=== PATIENT | female | born 1965 | race Caucasian/White ===

== ENCOUNTER 2016-11-16 12:03 | Inpatient (IN) | payer OTHER ==
[~2016-11-16] VITALS: Ht 165.1 cm; Wt 76.2 kg
[~2016-11-16 12:03] MED LIST: ADVIN50/60 INH; ATR25 PO; CARV3.122 PO; IPRA1AER2 INH; LAMO100T PO; LORA-741 PO; LOSA1TAB PO; LURA80TA PO; MONT1TAB3 PO; NSNN50 NAE; OXYC-643 PO; PANT40TA PO; TIOTCAP INH; TRAM-10 PO; TRAZ50TA35 PO
[2016-11-16] MEDS ORDERED: ONDANSETRON INJ 2 MG/ML 2 ML VIAL IV PRN (13:00)
[2016-11-16] MEDS ORDERED: POTASSIUM CHLORIDE 20 MEQ TABCR PO STA (13:08)
[2016-11-16 13:19] VITALS: BP 126/67; PULSE 93; TEMP 37.2; O2SAT 98
[2016-11-16 13:45] VITALS: BP 126/67; PULSE 93; TEMP 37.2; O2SAT 98; Ht 165.1 cm; Wt 76.2 kg
[2016-11-16] MEDS ORDERED: LAMO1TAB21 PO (14:02)
[2016-11-16] MEDS ORDERED: SALI0.6510 NAE (14:04)
[2016-11-16] MEDS ORDERED: TRIH5TAB2 PO (14:09)
[2016-11-16] MEDS: POTASSIUM CHLR 10 MEQ / WTR 10 MEQ in PREMIXED WATER 100 ML IV SCH ×4 (14:21→18:38)
[2016-11-16] MEDS ORDERED: ALBINS INH (14:23)
[2016-11-16] MEDS ORDERED: ASPCH81X PO (14:26)
[2016-11-16] MEDS ORDERED: ATRINS NEB (14:26)
[2016-11-16] MEDS ORDERED: [UNRECOGNIZED DRUG - SUPPLY] INH (14:27)
[2016-11-16 14:29] LABS: BASO % 0.2 %; BASO ABS # 0.02 K/uL (0-0.2); COMPLETE YES; EOS % 0.7 %; HEMATOCRIT 34.4 % (37-47); IG% 0.2 %; LYMPH % 17.1 %; LYMPH ABS # 1.61 K/uL (1.2-3.4); MEAN CELL VOLUME 100.9 fL (80-100); MEAN CORPUSCULAR HGB CONC 33.7 g/dl (32-36); MEAN PLATELET VOLUME 10.3 fL (7.4-10.4); MONO % 9.1 %; NEUT % 72.7 %; PLATELET COUNT 146 K/uL (130-400); RED BLOOD COUNT 3.41 M/uL (4.2-5.4); WHITE BLOOD COUNT 9.41 K/uL (4.8-10.8)
[2016-11-16] MEDS ORDERED: MULTIVITAMIN TAB PO ONE (14:32)
[2016-11-16] MEDS ORDERED: NICOTINE 14 MG/24 HR TDSY TD ONE (14:32)
[2016-11-16] MEDS ORDERED: THIAMINE HCL 100 MG TAB PO ONE (14:32)
[2016-11-16 14:38] LABS: INR 1.5 (0.9-1.1); PARTIAL THROMBOPLASTIN RATIO 1.4; PROTHROMBIN TIME (PATIENT) 16.2 SECONDS (9.0-12.0)
[2016-11-16] MEDS ORDERED: IPRATROPIUM BROMIDE/ALBUTEROL respimat INH INH PRN (14:45)
[2016-11-16] MEDS ORDERED: ALBUTEROL 0.083% NEBU SOLN 3 ML VIAL INH PRN (14:45)
[2016-11-16] MEDS ORDERED: hydrOXYzine HCL 25 MG TAB PO PRN (14:45)
[2016-11-16] MEDS ORDERED: IPRATROPIUM BROMIDE NEB SOLN 0.02% 2.5 ML VIAL INH PRN (14:45)
[2016-11-16] MEDS ORDERED: LORAZEPAM 1 MG TAB PO PRN (14:45)
[2016-11-16] MEDS ORDERED: [UNRECOGNIZED DRUG - SUPPLY] INH SCH (14:45)
[2016-11-16] MEDS ORDERED: TRAMADOL HCL 50 MG TAB PO PRN (14:45)
[2016-11-16] MEDS ORDERED: SODIUM CHLORIDE 0.9% 1000ML 1,000 ML IV SCH (14:45)
[2016-11-16] MEDS ORDERED: LURA40TA PO (14:50)
[2016-11-16 15:05] LABS: BUN/CREATININE RATIO 3.3 (10-20); CALCIUM 8.4 mg/dl (8.5-10.1); CREATININE 0.46 mg/dl (0.60-1.20); MAGNESIUM 1.6 mg/dl (1.8-2.4); POTASSIUM 2.4 mmol/L (3.5-5.1)
[2016-11-16] MEDS ORDERED: SODIUM CHLORIDE 0.65% NA SOLN 45 ML (OCEAN) ONE (15:29)
[2016-11-16] MEDS ORDERED: NURSING VERBAL MED ORDER ONE (15:30)
[2016-11-16 16:00] VITALS: O2SAT 98
--- NOTE | 2016-11-16 16:10 | History and Physical ---
History & Physical Date & Time of Service: Nov 16, 2016 at 15:01 Chief Complaint: Hypokalemia, Increased Bilirubin Primary Care Physician: Rangel Crane D.O. History of Present Illness Source: patient This is a 51yo F with PMH of chronic diastolic HF, asthma, bipolar disorder, HTN , tobacco use d/o and h/o alcohol abuse who presents directly from her PCP with hypokalemia (2.9) and an elevated bilirubin (4.7). Patient states that she does not have any acute symptoms but has been experiencing fatigue over the past 6 months as well as some nausea. Was seen by Aura BRAVO in September for nausea/ vomiting and was started on a PPI. Was also told to start a gluten free diet due to elevated celiac antibodies. Since then, the vomiting has subsided but patient has maintained a decreased appetite (1-3 small meals/day) as well as diarrhea x 2 days. Of note, patient has a history of alcohol abuse (30 cans of beer/week in her 30s, ~18oz of liquor/day 3 years ago), but states that she significantly decreased intake a few years ago to 2-4 beer cans/week. Reports that she has not had any alcohol in the last month since beginning her gluten free diet. Denies any fever/chills, cognitive deficits, CP, SOB, abdominal pain , melena, hematochezia, jaundice, tremors. Past Medical/Surgical History Medical Problems: (1) Anxiety Status: Chronic (2) Asthma Status: Chronic (3) Bipolar 1 disorder Status: Chronic (4) CHF (congestive heart failure) Status: Chronic (5) H/O alcohol abuse Status: Chronic (6) HTN, goal below 140/90 Status: Chronic (7) Hx of migraines Status: Chronic (8) Sleep apnea Status: Chronic (9) Tobacco use disorder Status: Chronic Surgical Problems: (1) S/P cholecystectomy Status: Resolved (2) S/P knee replacement Status: Resolved (3) S/P tubal ligation Status: Resolved Family History Diabetes mellitus SISTER FH: brain cancer FATHER Hodgkin's lymphoma MOTHER Social History Smoking Status: Current Every Day Smoker (1/2 PPD x 30 years ) Smokeless Tobacco Use: No Alcohol Use: none (see HPI for history of etoh abuse) Drug Use: none Marital Status: Housing status: lives with family Immunizations History of Influenza Vaccine: No History of Tetanus Vaccine?: Unknown History of Pneumococcal: No History of Hepatitis B Vaccine: Unknown Hepatitis Immunization Date: Feb 01, 2005 Multi-Drug Resistant Organisms History of MDRO: No Allergies Coded Allergies: [place] (Verified Allergy, Severe, HIVES, 05/11/15) [place] Tar (Unverified Allergy, Mild, 05/11/15) BEE STING (Verified Allergy, Unknown, HIVES AND SWELLING, 05/11/15) POLLEN (Verified Allergy, Unknown, UNKNOWN, 05/11/15) Home Medications Scheduled Aspirin (Aspirin Chewable), 81 MG PO DAILY Fluticasone Prop/Salmeterol (Advair Diskus 500/50 60 Dose), 1 PUFF INH BID Lamotrigine (Lamictal), 200 MG PO HS Lamotrigine (Lamotrigine), 1 TAB PO DAILY Losartan Potassium (Cozaar), 25 MG PO DAILY Lurasidone Hcl (Latuda), 0.5 TAB PO BID Montelukast Sodium (Singulair), 10 MG PO HS Pantoprazole Sodium (Protonix), 40 MG PO DAILY Saline ([place] Nasal [place]), 1 SPRAY [place] DIRECTED Trazodone Hcl (Trazodone), 150 MG PO HS Trihexyphenidyl Hcl (Trihexyphenidyl Hcl), 0.5 TAB PO DAILY [nebulizer device], 1 UNIT INH DIRECTED Scheduled PRN Albuterol Sulf (Albuterol Sulfate), 1 DOSE INH Q6 PRN for Wheezing Hydroxyzine HCl (Hydroxyzine HCl), 25 MG PO Q4 PRN for Anxiety and/or Sedation Ipratropium [place] (Ipratropium [place]), 1 VIAL NEB Q6H PRN for Wheezing Ipratropium-Albuterol (Combivent Respimat), 1 PUFF INH QID PRN for PRN Tramadol (Ultram), 50-100 MG PO Q6H PRN for Pain Review of Systems Ten systems reviewed and negative except as noted in HPI. Physical Exam Vital Signs Date Time Temp Pulse Resp B/P (MAP) Pulse Ox O2 Delivery O2 Flow Rate FiO2 11/16/16 13:45 37.2 93 18 126/67 98 Room Air 11/16/16 13:19 37.2 93 18 126/67 (86) 98 Room Air General Appearance: no apparent distress Head: normocephalic, atraumatic Eyes: + pertinent finding (scleral icterus) ENT: normal ENT inspection Neck: supple, no adenopathy, no JVD Respiratory/Chest: chest non-tender, lungs clear, normal breath sounds, no respiratory distress, no accessory muscle use Cardiovascular: regular rate, rhythm Abdomen/GI: normal bowel sounds, non tender, soft, + hepatomegaly Back: normal inspection, no CVA tenderness Extremities/Musculoskelatal: normal inspection, no calf tenderness, no pedal edema Neurologic/Psych: no motor/sensory deficits, alert, normal mood/affect, oriented x 3 Skin: warm/dry, no rash, + pertinent finding (Spider angiomatas noted on arms and abdomen) Lymphatic: no adenopathy Diagnostics Laboratory Results Results Past 24 Hours Test 11/16/16 13:55 11/16/16 14:32 Range/Units White Blood Count 9.41 4.8-10.8 K/uL Red Blood Count 3.41 4.2-5.4 M/uL Hemoglobin 11.6 12.0-16.0 g/dL Hematocrit 34.4 37-47 % Mean Corpuscular Volume 100.9 80-100 fL Mean Corpuscular Hemoglobin 34.0 25-34 pg Mean Corpuscular Hemoglobin Concent 33.7 32-36 g/dl Platelet Count 146 130-400 K/uL Mean Platelet Volume 10.3 7.4-10.4 fL Neutrophils (%) (Auto) 72.7 % Lymphocytes (%) (Auto) 17.1 % Monocytes (%) (Auto) 9.1 % Eosinophils (%) (Auto) 0.7 % Basophils (%) (Auto) 0.2 % Neutrophils # (Auto) 6.83 1.4-6.5 K/uL Lymphocytes # (Auto) 1.61 1.2-3.4 K/uL Monocytes # (Auto) 0.86 0.11-0.59 K/uL Eosinophils # (Auto) 0.07 0-0.5 K/uL Basophils # (Auto) 0.02 0-0.2 K/uL RDW Standard Deviation 60.9 36.4-46.3 fL RDW Coefficient of Variation 16.5 11.5-14.5 % Immature Granulocyte % (Auto) 0.2 % Immature Granulocyte # (Auto) 0.02 0.00-0.02 K/uL Prothrombin Time 16.2 9.0-12.0 SECONDS Prothromb Time International Ratio 1.5 0.9-1.1 Activated Partial Thromboplast Time 35.5 21.0-31.0 SECONDS Partial Thromboplastin Ratio 1.4 CXR normal Impression Assessment and Plan This is a 51yo F with PMH of chronic diastolic HF, asthma, bipolar disorder, HTN , tobacco use d/o and h/o alcohol abuse who presents with hypokalemia (2.9) and an elevated bilirubin (4.7). Hypokalemia: -Low K of 2.9 at PCP appt yesterday. Decreased to 2.4 once admitted. Repleting K both by IV and PO. -cause is likely due to decreased intake of K by diet (has had a decreased appetite for a month) and from GI losses by diarrhea over the past few days -could also be in part to chronic alcoholism, although pt states that she decreased etoh intake to 2-4 beers a few years ago and has not consumed etoh at all in past month -low Mg level as well 1.6, so could be a secondary hypokalemia. Will continue repleting both K and Mg. -will continue to monitor BMP Hypomagnesemia: -not on diuretics, antibiotics -does have elevated celiac antibody (IGA of 456) per out-patient GI note, so could be due to malabsorption -likely 2/2 poor nutrition, h/o chronic alcohol abuse and GI losses from diarrhea Transaminitis: -AST 265 today. Per out-patient GI note, hepatic panel was wnl in 2014, but in 2016 AST levels were elevated to 258. Have remained elevated since. -ALT wnl at 58 -patient states she decreased etoh dramatically a few years ago but that she has not consumed any etoh in last month -Hepatitis panel in 08/15 was negative -CT abd/pelvis from 08/15 shows geographic fatty infiltration of the liver -ceruloplasmin, serum protein, anti-mitochondrial ab, anti-smooth muscle ab, Alpha-1 antitrypsin all negative. Hfe DNA test pending. -consulted GI for further recs Elevated bilirubin: -5.6 total bili with 3.7 conjugated bili. -scleral icterus on exam but not jaundiced -could be due to alcoholic hepatitis 2/2 longstanding etoh use vs. cirrhosis 2/ 2 fatty liver disease vs. ?? -not likely an autoimmune cause of hepatitis because labwork wnl -consulted GI for further recs Diastolic HF: stable -pt denies any CP, SOB -last Echo 09/11 showed LV EF of 50-54%. -continue BP medications HTN: stable -normotensive -continue losartan Bipolar disorder: stable -continue Latuda 20mg BID Asthma: controlled -continue home nebs, inhalers and PO meds DVT Ppx: Lovenox Code status: Full Dispo: Med/surg PCP: Dr. Crane Agree with above H and P. Briefly 51f was directly admitted as her outpatient labs showed hypokalemia and elevated bilirubin. Patient has significant hx of alcoholism but denies taking alcohol since one month.having nausea and poor oral intake. had workup for nausea and elebvated ASt. Celiac antibodies were elevated and was stared on gluten free diet.Denies abdominal pain. No diarrhea. No fevers. No sob/chest pain. P/E ge not in distress Cvs s1 and s2 heard no murmurs Rs cta b/l no added sounds Abd benign Welfare Eligibility Interviewer non focal Ext no edema a/p hypokalemia and hypomagnesemia from poor oral intake alcoholism? will replace and follow labs elevated bilirubin elevated Ast hx of alcoholism recent ct scan fatty liver out patient Gi workup so far unremarkable Will consult GI for further recommendations f/u labs Level of Care Med/Surg Advanced Directives Existing Living Will: No Existing Power of Player Development Executive: No Resuscitation Status FULL RESUSCITATION VTE Prophylaxis VTE Risk Assessment Done? Y/N: Yes Risk Level: Moderate Given or contraindicated: Enoxaparin (Lovenox)SQ Social Service Consult None Apply
[2016-11-16 16:15] VITALS: BP 153/88; PULSE 99; TEMP 37.6; O2SAT 96
[2016-11-16] MEDS: NSS + 20MEQ KCL 1000ML 1,000 ML IV SCH (16:34)
[2016-11-16] MEDS: MAGNESIUM SULFATE 1GM / D5W 1 GM in PREMIXED IN D5W 100 ML IV SCH ×2 (16:34→19:04)
[2016-11-16] MEDS: PANTOprazole SOD 40 MG TAB PO SCH (16:35)
[2016-11-16] MEDS ORDERED: POTASSIUM CHLORIDE 10 MEQ TABCR PO ONE (17:00)
[2016-11-16 19:46] LABS: BUN/CREATININE RATIO 1.9 (10-20); CALCIUM 8.2 mg/dl (8.5-10.1); CREATININE 0.65 mg/dl (0.60-1.20); MAGNESIUM 1.9 mg/dl (1.8-2.4); POTASSIUM 3.1 mmol/L (3.5-5.1)
[2016-11-16] MEDS ORDERED: POTASSIUM CHLORIDE 10 MEQ TABCR PO STA (20:19)
[2016-11-16] MEDS: ENOXAPARIN 40 MG/0.4 ML SYR SQ SCH (20:50)
[2016-11-16] MEDS: FLUTICASONE/SALMETEROL (ADVAIR) 500/50 INH 14 PUFF INH SCH (20:52)
[2016-11-16] MEDS: TRAZODONE HCL 50 MG TAB PO SCH (20:54)
[2016-11-16] MEDS: LURASIDONE HCL 40 MG TAB PO SCH (20:55)
[2016-11-16] MEDS: MAGNESIUM OXIDE 400 MG TAB PO SCH (20:56)
[2016-11-16] MEDS: MONTELUKAST SOD 10 MG TAB PO SCH (20:56)
[2016-11-16] MEDS ORDERED: SODIUM CHLORIDE 0.65% NA SOLN 45 ML (OCEAN) NAE PRN (21:00)
[2016-11-17 00:02] VITALS: BP 119/71; PULSE 98; TEMP 37; O2SAT 96
[2016-11-17] MEDS: NSS + 20MEQ KCL 1000ML 1,000 ML IV SCH ×2 (04:05→14:15)
--- NOTE | 2016-11-17 06:40 | Clinical Documentation Query ---
CLINICAL DOCUMENTATION QUERY 51-y/o female with hx of alcoholism who presents with hypokalemia and elevated bilirubin from PCP. In your clinical opinion is this patient being managed for: ( ) Alcohol dependence causing electrolyte disturbances and elevated liver enzymes. ( ) Other explanation of clinical findings (Please Explain) ( ) Unable to determine (Please Define) ( ) Need to Discuss - please wait for my documentation ( ) Not Agree The medical record reflects the following clinical findings, treatment, and risk factors. Clinical Indicators: Ethyl Alcohol 6.0, Potassium 2.4, Magnesium 1.6, AST 265, Total Bilirubin 5.6. Nursing notes jaundiced skin and sclera. Treatment: Telemetry, IV Potassium, IV Magnesium, Thiamine, Risk Factors: Age, hx of alcoholism. Please clarify and document your clinical opinion in the progress notes and discharge summary. Terms such as "probable", "suspected", "likely", "questionable", "possible", or "still to be ruled out" are acceptable. IF IN AGREEMENT, YOU MUST DOCUMENT ABOVE DIAGNOSTIC STATEMENT IN DAILY PROGRESS NOTES AND DISCHARGE SUMMARY. This document is not part of the patient's record. Thank You, Tunde Cortez, RN [phone]
[2016-11-17 07:52] VITALS: BP 113/64; PULSE 91; TEMP 36.9; O2SAT 97
[2016-11-17 08:00] VITALS: O2SAT 97
[2016-11-17 08:13] LABS: BUN/CREATININE RATIO 1.8 (10-20); CALCIUM 8.3 mg/dl (8.5-10.1); CREATININE 0.76 mg/dl (0.60-1.20); POTASSIUM 3.7 mmol/L (3.5-5.1)
[2016-11-17] MEDS: TRIHEXYPHENIDYL HCL 5 MG TAB PO SCH (08:56)
[2016-11-17] MEDS: LURASIDONE HCL 40 MG TAB PO SCH ×2 (08:56→21:18)
[2016-11-17] MEDS: MULTIVITAMIN TAB PO SCH (08:57)
[2016-11-17] MEDS: NICOTINE 14 MG/24 HR TDSY TD SCH (08:57)
[2016-11-17] MEDS: PANTOprazole SOD 40 MG TAB PO SCH (08:58)
[2016-11-17] MEDS: LOSARTAN POTASSIUM 25 MG TAB PO SCH (08:58)
[2016-11-17] MEDS: THIAMINE HCL 100 MG TAB PO SCH (08:58)
[2016-11-17] MEDS: FLUTICASONE/SALMETEROL (ADVAIR) 500/50 INH 14 PUFF INH SCH ×2 (08:59→21:18)
[2016-11-17] MEDS: MAGNESIUM OXIDE 400 MG TAB PO SCH ×2 (09:22→21:19)
[2016-11-17] MEDS: ASPIRIN 81 MG ECTAB PO SCH (09:22)
[2016-11-17 09:38] LABS: ALB/GLOB RATIO 0.4 (0.9-2)
--- NOTE | 2016-11-17 11:38 | DIAGNOSTIC IMAGING REPORT ---
BILIARY ULTRASOUND CLINICAL HISTORY: elevated LFTs history of fatty liver, r/o obstruction COMPARISON STUDY: No previous studies for comparison. FINDINGS: The liver is enlarged and of increased echogenicity. The findings likely reflect hepatic steatosis or hepatitis. The gallbladder surgically absent. The common bile duct measures 7 mm. There is minimal perihepatic fluid present. There is no hydronephrosis. The pancreas was poorly visualized but no definite pancreatic masses were evident. The spleen was enlarged measuring 16 cm There is reversed flow within the portal veins. IMPRESSION: 1. Mildly enlarged liver demonstrating increased echogenicity. The findings are consistent with hepatic steatosis or hepatitis 2. Evidence of portal hypertension with hepatofugal portal venous flow, and splenomegaly 3. Minimal perihepatic fluid 4. Surgically absent gallbladder Electronically signed by: Jesús Esquivel M.D. 11/17/2016 11:36 AM Dictated Date/Time: 11/17/2016 11:34 AM
--- NOTE | 2016-11-17 12:04 | Gastrointestinal Consultation ---
Gastrointestinal Consultation Date of Consultation: Nov 17, 2016 Attending Physician: Dr. Shahrzad Chapa (consult from Dr. Chi) Consulting Physician: Dr. Samuels Reason for Consultation: Elevated LFTs History of Present Illness Patient is a 51 year old female patient of Dr. Crane with a history of bipolar disease, CHF, migraines, smoking, increased alcohol intake. She was directed to come to the emergency department yesterday when labs at her PCP showed hypokalemia (2.9) and elevated bilirubin at 4.7. GI is consulted for elevated LFTs. The patient is known to our group. She has been seen by Rakesh Pang in clinic for elevated LFTs as well as abdominal discomfort and diarrhea. Previous testing includes a NA, AMA, ASMA, tissue transglutaminase, hepatitis AB and C testing which were all negative. TSH was normal. CT of the abdomen and pelvis with IV and oral contrast in July was significant for fatty liver, otherwise normal. EGD and colonoscopy on 09/22/[address] Mccain for abdominal pain was normal with the exception of two 2-9 mm polyps in the ascending colon. The only w/u abnormality was an elevated ferritin at 700 and decreased TIBC at 213. HFE testing is ordered. Pt plans to get this done in the next week. Regarding her elevated LFTs, on arrival, T Bili 4.7, D bili 3.0, AST 235, ALT 54 , alkaline phosphatase 25. Other liver related labs show: albumin 2.1. INR 1.5 , PT 16.2. Platelets 146, hemoglobin 11.6. Bili is increased from a few weeks ago. Regarding her abdominal pain, she has diffuse generalized having abdominal pain and intermittent diarrhea. Most recently she had 2 days of 3-5 loose bowel movements per day. Stool studies have been negative in the OP setting a few weeks ago. On my arrival in the room, the patient was standing and ambulating around. She asks when she can go home. Her daughter is with her. The patient states that 4 years ago she stopped drinking heavily and has been drinking 2 beers per week since then, that this is "okay with Dr. Crane." I asked her several different ways if she could possibly be drinking more, but she adamantly denies any recent increased alcohol intake. Her daughter who is also in the room, quietly told me that she believes her mother is drinking more than that. Past Medical/Surgical History Past Medical History: 1. Anxiety 2. Asthma 3. Bipolar disease 4. CHF 5. Tremor 6. Alcohol abuse 7. Migraines 8. Sleep apnea 9. Smoker Past Surgical History: 1. Cholecystectomy 2. Knee replacement 3. Tubal ligation Family History Diabetes mellitus SISTER FH: brain cancer FATHER Hodgkin's lymphoma MOTHER Social History Smoking Status: Current Every Day Smoker (1/2 PPD x 30 years ) Alcohol Use: heavy Drug Use: none Marital Status: Housing Status: lives with family Allergies Coded Allergies: [place] (Verified Allergy, Severe, HIVES, 05/11/15) [place] Tar (Unverified Allergy, Mild, 05/11/15) BEE STING (Verified Allergy, Unknown, HIVES AND SWELLING, 05/11/15) POLLEN (Verified Allergy, Unknown, UNKNOWN, 05/11/15) Current Medications Home Meds and Scripts Medications Dose Route/Sig Max Daily Dose Days Date Category Dose Instructions Latuda (Lurasidone Hcl) 40 Mg Tab 0.5 Tab PO BID 30 11/16/16 Reported [nebulizer device] 1 Unit INH DIRECTED 11/16/16 Reported Aspirin Chewable (Aspirin) 81 Mg Chew 81 Mg PO DAILY 11/16/16 Reported Ipratropium [place] 0.5 Mg/2.5 Ml Nebu 1 Vial NEB Q6H PRN 30 11/16/16 Reported Albuterol Sulfate (Albuterol Sulf) 2.5 Mg/3 Ml Nebu 1 Dose INH Q6 PRN 11/16/16 Reported Trihexyphenidyl Hcl 5 Mg Tab 0.5 Tab PO DAILY 30 11/16/16 Reported [place] Nasal [place] (Saline) 0.65 % Spr 1 [place] KOLE DIRECTED 11/16/16 Reported Lamotrigine 100 Mg Tab 1 Tab PO DAILY 30 11/16/16 Reported Lamictal (Lamotrigine) 100 Mg Tab 200 Mg PO HS 05/11/15 Reported Ultram (Tramadol HCl) 50 Mg Tab 50-100 Mg PO Q6H PRN 05/11/15 Reported Trazodone (Trazodone HCl) 50 Mg Tab 150 Mg PO HS 05/11/15 Reported Hydroxyzine HCl 25 Mg Tab 25 Mg PO Q4 PRN 10/30/13 Reported take one at 1200 for anxiety Cozaar (Losartan Potassium) 25 Mg Tab 25 Mg PO DAILY 08/28/13 Reported Advair Diskus 500/50 60 Dose (Fluticasone Prop/Salmeterol) 1 Ea Aerp 1 Puff INH BID 07/03/13 Reported RINSE MOUTH AFTER USE. Combivent Respimat (Ipratropium-Albuterol) 1 Aer Aer 1 Puff INH QID PRN 07/03/13 Reported Singulair (Montelukast Sodium) 10 Mg Tab 10 Mg PO HS 02/02/12 Reported Protonix (Pantoprazole Sodium) 40 Mg Tab 40 Mg PO DAILY 12/26/11 Reported Review of Systems Constitutional: No fever, No chills, No sweats, No weight loss, No weakness Eyes: No eye pain, No redness ENT: No sore throat, No trouble swallowing, No pain on swallowing Respiratory: No cough, No wheezing, No shortness of breath, No dyspnea on exertion Cardiac: No chest pain, No edema, No palpitations Abdomen: + see HPI, + pain (diffuse, crampy, generalized) Neuro: No memory loss, No weakness, No numbness/tingling, No vertigo, No balance problems Psych: No depression symptoms, No anxiety, No insomnia Heme: No abnormal bleeding/bruising, No night sweats Endo: No excessive thirst, No excessive urination Skin: No rash, No itch, No new/changing skin lesions, No jaundice Physical Exam Date Time Temp Pulse Resp B/P (MAP) Pulse Ox O2 Delivery O2 Flow Rate FiO2 11/17/16 08:00 97 Room Air 11/17/16 07:52 36.9 91 16 113/64 (80) 97 Room Air 11/17/16 00:02 37.0 98 18 119/71 (87) 96 Room Air 11/17/16 00:00 Room Air 11/16/16 16:15 37.6 99 18 153/88 (109) 96 Room Air 11/16/16 16:00 98 Room Air 11/16/16 13:45 37.2 93 18 126/67 98 Room Air 11/16/16 13:19 37.2 93 18 126/67 (86) 98 Room Air General Appearance: no apparent distress Eyes: normal inspection, EOMI Neck: supple, no adenopathy, thyroid normal Respiratory/Chest: chest non-tender, lungs clear, normal breath sounds, no accessory muscle use Cardiovascular: regular rate, rhythm, no JVD, no murmur Abdomen: normal bowel sounds, non tender, soft, no organomegaly Extremities: normal inspection, no pedal edema, normal capillary refill Neurologic/Psych: alert, normal mood/affect, oriented x 3 Skin: normal color, no jaundice (very mild), warm/dry, no rash, + pertinent finding (velez angiomas over the chest) Laboratory Results Last 24 Hours Test 11/16/16 13:55 11/16/16 15:38 11/16/16 19:04 11/17/16 05:20 White Blood Count 9.41 K/uL Red Blood Count 3.41 M/uL Hemoglobin 11.6 g/dL Hematocrit 34.4 % Mean Corpuscular Volume 100.9 fL Mean Corpuscular Hemoglobin 34.0 pg Mean Corpuscular Hemoglobin Concent 33.7 g/dl Platelet Count 146 K/uL Mean Platelet Volume 10.3 fL Neutrophils (%) (Auto) 72.7 % Lymphocytes (%) (Auto) 17.1 % Monocytes (%) (Auto) 9.1 % Eosinophils (%) (Auto) 0.7 % Basophils (%) (Auto) 0.2 % Neutrophils # (Auto) 6.83 K/uL Lymphocytes # (Auto) 1.61 K/uL Monocytes # (Auto) 0.86 K/uL Eosinophils # (Auto) 0.07 K/uL Basophils # (Auto) 0.02 K/uL RDW Standard Deviation 60.9 fL RDW Coefficient of Variation 16.5 % Immature Granulocyte % (Auto) 0.2 % Immature Granulocyte # (Auto) 0.02 K/uL Prothrombin Time 16.2 SECONDS Prothromb Time International Ratio 1.5 Activated Partial Thromboplast Time 35.5 SECONDS Partial Thromboplastin Ratio 1.4 Sodium Level 138 mmol/L 137 mmol/L Potassium Level 2.4 mmol/L 3.1 mmol/L Chloride Level 99 mmol/L 100 mmol/L Carbon Dioxide Level 27 mmol/L 29 mmol/L Anion Gap 12.0 mmol/L 8.0 mmol/L Blood Urea Nitrogen 2 mg/dl 1 mg/dl Creatinine 0.46 mg/dl 0.65 mg/dl Est Creatinine Clear Calc Drug Dose 147.7 ml/min 104.6 ml/min Estimated GFR () 133.5 119.1 Estimated GFR (Non- 115.2 102.8 BUN/Creatinine Ratio 3.3 1.9 Random Glucose 127 mg/dl 111 mg/dl Calcium Level 8.4 mg/dl 8.2 mg/dl Magnesium Level 1.6 mg/dl 1.9 mg/dl Total Bilirubin 5.6 mg/dl Direct Bilirubin 3.7 mg/dl Aspartate Amino Transf (AST/SGOT) 265 U/L Alanine Aminotransferase (ALT/SGPT) 58 U/L Alkaline Phosphatase 141 U/L Total Protein 7.5 gm/dl Albumin 2.2 gm/dl Ethyl Alcohol mg/dL 6.0 mg/dl Bedside Glucose 99 mg/dl Test 11/17/16 07:29 Sodium Level 139 mmol/L Potassium Level 3.7 mmol/L Chloride Level 104 mmol/L Carbon Dioxide Level 27 mmol/L Anion Gap 8.0 mmol/L Blood Urea Nitrogen 1 mg/dl Creatinine 0.76 mg/dl Est Creatinine Clear Calc Drug Dose 89.4 ml/min Estimated GFR () 105.3 Estimated GFR (Non- 90.8 BUN/Creatinine Ratio 1.8 Random Glucose 157 mg/dl Calcium Level 8.3 mg/dl Magnesium Level 2.0 mg/dl Total Bilirubin 4.7 mg/dl Direct Bilirubin 3.0 mg/dl Aspartate Amino Transf (AST/SGOT) 235 U/L Alanine Aminotransferase (ALT/SGPT) 54 U/L Alkaline Phosphatase 131 U/L Total Protein 7.1 gm/dl Albumin 2.1 gm/dl Globulin 5.0 gm/dl Albumin/Globulin Ratio 0.4 Impression Patient is a 51 year old female with elevated LFTs in the pattern of alcoholic hepatitis. The patient denies any recent increased intake of alcohol. However with her thus far negative workup for other liver diseases most likely represents alcoholic hepatitis. Her discriminant function is 23. Plan 1. I talked with the patient that my opinion is that alcohol is most likely the cause of her liver disease, and that, "the amount of alcohol that she is currently drinking is too much for her liver." 2. Recommend low salt diet. 3. Imodium as needed for diarrhea. 4. Right upper quadrant ultrasound to rule out any new biliary obstruction, though doubt this is present. 5. Patient should follow-up in outpatient GI clinic with Rakesh Pang to rule out hemochromatosis and to manage chronic liver disease. I have personally seen and examined the patient with KIRA Feliciano. Her note reflects my exam and findings. I agree with her impression and plan. Will obtain RUQ sono. Patient needs dietary educational guidance counselor. Kelvin Samuels M.D.
[2016-11-17] MEDS ORDERED: LOPERAMIDE HCL 2 MG CAP PO PRN (12:45)
[2016-11-17] MEDS ORDERED: NURSING VERBAL MED ORDER ONE (14:45)
[2016-11-17 15:04] VITALS: BP 116/71; PULSE 89; TEMP 37.3; O2SAT 97
--- NOTE | 2016-11-17 16:21 | Progress Note ---
Subjective Date of Service: Nov 17, 2016. Subjective Pt evaluation today including: conversation w/ patient, physical exam, lab review, review of studies, review of inpatient medication list Saw/examined the patient in room 282 +weakness states she came in after being told about her low potassium, but otherwise, was feeling okay Mild crampy abdominal pain in the epigastric region Review of Systems Constitutional: + weakness, No fever, No chills Respiratory: No cough, No sputum, No wheezing, No shortness of breath, No dyspnea on exertion, No dyspnea at rest, No hemoptysis Cardiac: No chest pain Abdomen: + pain, No nausea, No vomiting, No diarrhea, No constipation, No GI bleeding Musculoskeletal: + muscle pain (LLE muscle cramping), No joint pain Female : No dysuria, No urinary frequency Heme: No abnormal bleeding/bruising Medications Current Inpatient Medications Medications (Trade) Dose Ordered Sig/Horacio Route Start Time Stop Time Status Last Admin Dose Admin Enoxaparin Sodium (Lovenox Inj) 40 mg Q24H SQ 11/16/16 20:00 12/16/16 19:59 11/16/16 20:50 40 MG Ondansetron HCl (Zofran Inj) 4 mg Q6H PRN IV 11/16/16 13:00 12/16/16 12:59 11/17/16 09:05 4 MG Multivitamins (Multivitamin Tab) 1 tab QAM PO 11/17/16 09:00 12/17/16 08:59 11/17/16 08:57 1 TAB Thiamine HCl (Vitamin B-1 Tab) 100 mg QAM PO 11/17/16 09:00 12/17/16 08:59 11/17/16 08:58 100 MG Lorazepam (Ativan Tab) 1 mg Q4 PRN PO 11/16/16 14:45 12/16/16 14:44 Nicotine (Nicoderm Cq 14MG Patch) 1 patch QAM TD 11/17/16 09:00 12/17/16 08:59 11/17/16 08:57 1 PATCH Miscellaneous (Remove Nicoderm Patch) 1 ea HS PRN N/A 11/16/16 21:00 12/16/16 20:59 Albuterol Sulfate (Ventolin 0.083% 2.5MG/3ML Neb) 2.5 mg Q6R PRN INH 11/16/16 14:45 12/16/16 14:44 Aspirin (Ecotrin Tab) 81 mg DAILY PO 11/17/16 09:00 12/17/16 08:59 11/17/16 09:22 81 MG Salmeterol Xinafoate/ Fluticasone (Advair Diskus 500/50 Inh) 1 puff BID INH 11/16/16 21:00 12/16/16 20:59 11/17/16 08:59 1 PUFF Hydroxyzine HCl (Vistaril Tab) 25 mg Q4 PRN PO 11/16/16 14:45 12/16/16 14:44 Ipratropium [place] (Atrovent 0.02% 0.5MG/2.5ML Neb) 0.5 mg Q6H PRN INH 11/16/16 14:45 12/16/16 14:44 Albuterol/ Ipratropium (Combivent Respimat Inh) 1 puffs QID PRN INH 11/16/16 14:45 12/16/16 14:44 Lamotrigine (Lamictal Tab) 100 mg DAILY PO 11/17/16 09:00 12/17/16 08:59 11/17/16 08:59 100 MG Lamotrigine (Lamictal Tab) 200 mg HS PO 11/16/16 21:00 12/16/16 20:59 11/16/16 20:54 200 MG Losartan Potassium (coZAAR TAB) 25 mg DAILY PO 11/17/16 09:00 12/17/16 08:59 11/17/16 08:58 25 MG Lurasidone HCl (Latuda Tab) 20 mg BID PO 11/16/16 21:00 12/16/16 20:59 11/17/16 08:56 20 MG Montelukast Sodium (Singulair Tab) 10 mg HS PO 11/16/16 21:00 12/16/16 20:59 11/16/16 20:56 10 MG Pantoprazole Sodium (Protonix Tab) 40 mg DAILY PO 11/16/16 16:00 12/16/16 15:59 11/17/16 08:58 40 MG Sodium Chloride ([place] Nasal [place]) 2 sprays Q12 PRN KOLE 11/16/16 21:00 12/16/16 20:59 7/19/17 15:32 2 SPRAYS Tramadol HCl (Ultram Tab) 50-100 Q6H PRN PO 11/16/16 14:45 12/16/16 14:44 11/16/16 23:26 50 MG Trazodone HCl (Desyrel Tab) 150 mg HS PO 11/16/16 21:00 12/16/16 20:59 11/16/16 20:54 150 MG Trihexyphenidyl HCl (Trihexyphenidyl HCl Tab) 2.5 mg DAILY PO 11/17/16 09:00 12/17/16 08:59 11/17/16 08:56 2.5 MG Potassium Chloride/Sodium Chloride 1,000 ml @ 80 mls/hr [id number] IV 11/16/16 15:30 12/16/16 15:29 11/17/16 14:15 80 MLS/HR Magnesium Oxide (Mag-Ox Tab) 400 mg BID PO 11/16/16 21:00 12/16/16 20:59 11/17/16 09:22 400 MG Folic Acid (Folvite Tab) 1 mg QAM PO 11/17/16 09:00 12/17/16 08:59 11/17/16 09:22 1 MG Loperamide HCl (Imodium Cap) 2 mg TID PRN PO 11/17/16 12:45 12/17/16 12:44 Enteral Nutritional Formula (Boost) 1 can TIDM PO 11/17/16 17:00 12/17/16 16:59 Objective Vital Signs Date Time Temp Pulse Resp B/P (MAP) Pulse Ox O2 Delivery O2 Flow Rate FiO2 11/17/16 15:04 37.3 89 19 116/71 (86) 97 Room Air 11/17/16 08:00 97 Room Air 11/17/16 07:52 36.9 91 16 113/64 (80) 97 Room Air 11/17/16 00:02 37.0 98 18 119/71 (87) 96 Room Air 11/17/16 00:00 Room Air 11/16/16 16:15 37.6 99 18 153/88 (109) 96 Room Air 11/16/16 16:00 98 Room Air Physical Exam General Appearance: no apparent distress ENT: hearing grossly normal Respiratory/Chest: chest non-tender, lungs clear, normal breath sounds, no respiratory distress, no accessory muscle use Cardiovascular: regular rate, rhythm, no edema, no murmur Abdomen: normal bowel sounds, soft, + tenderness (mildly tender) Extremities: normal inspection, no pedal edema Neurologic/Psychiatric: no motor/sensory deficits, alert, normal mood/affect Laboratory Results Last 24 Hours Test 11/16/16 19:04 11/17/16 05:20 11/17/16 07:29 11/17/16 13:23 Sodium Level 137 mmol/L 139 mmol/L Potassium Level 3.1 mmol/L 3.7 mmol/L Chloride Level 100 mmol/L 104 mmol/L Carbon Dioxide Level 29 mmol/L 27 mmol/L Anion Gap 8.0 mmol/L 8.0 mmol/L Blood Urea Nitrogen 1 mg/dl 1 mg/dl Creatinine 0.65 mg/dl 0.76 mg/dl Est Creatinine Clear Calc Drug Dose 104.6 ml/min 89.4 ml/min Estimated GFR () 119.1 105.3 Estimated GFR (Non- 102.8 90.8 BUN/Creatinine Ratio 1.9 1.8 Random Glucose 111 mg/dl 157 mg/dl Calcium Level 8.2 mg/dl 8.3 mg/dl Magnesium Level 1.9 mg/dl 2.0 mg/dl Bedside Glucose 99 mg/dl Total Bilirubin 4.7 mg/dl Direct Bilirubin 3.0 mg/dl Aspartate Amino Transf (AST/SGOT) 235 U/L Alanine Aminotransferase (ALT/SGPT) 54 U/L Alkaline Phosphatase 131 U/L Total Protein 7.1 gm/dl Albumin 2.1 gm/dl Globulin 5.0 gm/dl Albumin/Globulin Ratio 0.4 Assessment and Plan This is a 51 year old female with a PMH of bipolar disorder, depression/anxiety , diastolic CHF, asthma, HTN, HLD, fatty liver - presents secondary to abnormal labwork Elevated Total Bilirubin/LFTs in the setting of Fatty Liver Disease vs. Hepatitis patient presents with total bili > 5; AST > 260 possibly related to alcohol use, though patient denies this Liver US suggests hepatic steatosis vs. hepatitis; no bile duct obstruction Pt. had Abdominal CT as outpatient as well plan for now is to monitor electrolytes and d/c with outpatient GI follow-up Electrolyte Abnormalities Severe Hypokalemia possibly secondary to alcohol use, decreased PO intake given multiple doses of K; increased from 2.4 --> 3.8 monitor K and Mg in AM and replace accordingly Bipolar/Depression/Mood Disorder continue home medications HTN continue Cozaar DVT ppx Lovenox FULL CODE
[2016-11-17] MEDS: BOOST VANILLA PO SCH ×2 (17:00)
[2016-11-17] MEDS: ENOXAPARIN 40 MG/0.4 ML SYR SQ SCH (21:14)
[2016-11-17] MEDS: MONTELUKAST SOD 10 MG TAB PO SCH (21:15)
[2016-11-17] MEDS: TRAZODONE HCL 50 MG TAB PO SCH (21:17)
[2016-11-17 21:39] VITALS: PULSE 72; O2SAT 97
[2016-11-17 23:03] VITALS: BP 103/64; PULSE 88; TEMP 37.4; O2SAT 97
[2016-11-18] MEDS: NSS + 20MEQ KCL 1000ML 1,000 ML IV SCH (02:46)
[2016-11-18 07:21] VITALS: BP 96/62; PULSE 90; TEMP 37.1; O2SAT 96
[2016-11-18 08:00] VITALS: O2SAT 96
[2016-11-18] MEDS: MAGNESIUM OXIDE 400 MG TAB PO SCH (08:24)
[2016-11-18 08:25] LABS: BUN/CREATININE RATIO 6.1 (10-20); CALCIUM 7.8 mg/dl (8.5-10.1); CREATININE 0.54 mg/dl (0.60-1.20); POTASSIUM 4.1 mmol/L (3.5-5.1)
[2016-11-18] MEDS: TRIHEXYPHENIDYL HCL 5 MG TAB PO SCH (08:25)
[2016-11-18] MEDS: PANTOprazole SOD 40 MG TAB PO SCH (08:25)
[2016-11-18] MEDS: THIAMINE HCL 100 MG TAB PO SCH (08:25)
[2016-11-18] MEDS: MULTIVITAMIN TAB PO SCH (08:26)
[2016-11-18] MEDS: NICOTINE 14 MG/24 HR TDSY TD SCH (08:26)
[2016-11-18] MEDS: LURASIDONE HCL 40 MG TAB PO SCH (08:26)
[2016-11-18] MEDS: FLUTICASONE/SALMETEROL (ADVAIR) 500/50 INH 14 PUFF INH SCH (08:29)
[2016-11-18] MEDS: BOOST VANILLA PO SCH ×6 (08:29→17:25)
[2016-11-18] MEDS: ASPIRIN 81 MG ECTAB PO SCH (08:30)
[2016-11-18] MEDS: LOSARTAN POTASSIUM 25 MG TAB PO SCH ×2 (08:30→08:58)
[2016-11-18 08:31] LABS: ALB/GLOB RATIO 0.4 (0.9-2)
--- NOTE | 2016-11-18 09:05 | DIAGNOSTIC IMAGING REPORT ---
CHEST 2 VIEWS ROUTINE HISTORY: 51 years-old Female acute cough and congestion. COMPARISON: Chest radiograph 08/28/2013 TECHNIQUE: Frontal and lateral views of the chest FINDINGS: Cardiomediastinal and hilar silhouettes are within normal limits. There are bilateral patchy perihilar and bibasilar alveolar opacities with trace bilateral effusions. Mild right hemidiaphragmatic elevation is noted. There is no pneumothorax identified. Minimal fluid tracks along the fissures. There is mild pulmonary vascular congestion. Bones appear grossly intact multilevel endplate spurring. There is atherosclerosis of the aorta. IMPRESSION: Pulmonary vascular congestion with patchy perihilar, bibasilar alveolar opacities and trace bilateral pleural effusions suggest pulmonary edema with atelectasis. Pneumonia could have a similar appearance. The above report was generated using voice recognition software. It may contain grammatical, syntax or spelling errors. Electronically signed by: Shady Carter M.D. 11/18/2016 9:04 AM Dictated Date/Time: 11/18/2016 9:01 AM
[2016-11-18 09:36] LABS: AFP TUMOR MARKER SERUM 3.8 NG/ML (<6.1)
--- NOTE | 2016-11-18 12:13 | Progress Note ---
Subjective Date of Service: Nov 18, 2016. Subjective Pt evaluation today including: conversation w/ patient, physical exam, lab review, review of studies, review of inpatient medication list Saw/examined the patient in room 282 She had been c/o cough earlier; which began this morning Denies fevers/chills denies abdominal pain or nausea/vomiting tolerating most of her breakfast Review of Systems Constitutional: No fever, No chills Respiratory: + cough, + shortness of breath, No sputum, No wheezing, No dyspnea on exertion, No hemoptysis Cardiac: No chest pain Abdomen: No pain, No nausea, No vomiting, No diarrhea Heme: No abnormal bleeding/bruising Medications Current Inpatient Medications Medications (Trade) Dose Ordered Sig/Horacio Route Start Time Stop Time Status Last Admin Dose Admin Enoxaparin Sodium (Lovenox Inj) 40 mg Q24H SQ 11/16/16 20:00 12/16/16 19:59 11/17/16 21:14 40 MG Ondansetron HCl (Zofran Inj) 4 mg Q6H PRN IV 11/16/16 13:00 12/16/16 12:59 11/17/16 09:05 4 MG Multivitamins (Multivitamin Tab) 1 tab QAM PO 11/17/16 09:00 12/17/16 08:59 11/18/16 08:26 1 TAB Thiamine HCl (Vitamin B-1 Tab) 100 mg QAM PO 11/17/16 09:00 12/17/16 08:59 11/18/16 08:25 100 MG Lorazepam (Ativan Tab) 1 mg Q4 PRN PO 11/16/16 14:45 12/16/16 14:44 Nicotine (Nicoderm Cq 14MG Patch) 1 patch QAM TD 11/17/16 09:00 12/17/16 08:59 11/18/16 08:26 1 PATCH Miscellaneous (Remove Nicoderm Patch) 1 ea HS PRN N/A 11/16/16 21:00 12/16/16 20:59 Albuterol Sulfate (Ventolin 0.083% 2.5MG/3ML Neb) 2.5 mg Q6R PRN INH 11/16/16 14:45 12/16/16 14:44 Aspirin (Ecotrin Tab) 81 mg DAILY PO 11/17/16 09:00 12/17/16 08:59 11/18/16 08:30 81 MG Salmeterol Xinafoate/ Fluticasone (Advair Diskus 500/50 Inh) 1 puff BID INH 11/16/16 21:00 12/16/16 20:59 11/18/16 08:29 1 PUFF Hydroxyzine HCl (Vistaril Tab) 25 mg Q4 PRN PO 11/16/16 14:45 12/16/16 14:44 11/17/16 22:10 25 MG Ipratropium [place] (Atrovent 0.02% 0.5MG/2.5ML Neb) 0.5 mg Q6H PRN INH 11/16/16 14:45 12/16/16 14:44 Albuterol/ Ipratropium (Combivent Respimat Inh) 1 puffs QID PRN INH 11/16/16 14:45 12/16/16 14:44 11/17/16 17:38 1 PUFFS Lamotrigine (Lamictal Tab) 100 mg DAILY PO 11/17/16 09:00 12/17/16 08:59 11/18/16 08:28 100 MG Lamotrigine (Lamictal Tab) 200 mg HS PO 11/16/16 21:00 12/16/16 20:59 11/17/16 21:15 200 MG Losartan Potassium (coZAAR TAB) 25 mg DAILY PO 11/17/16 09:00 12/17/16 08:59 11/17/16 08:58 25 MG Lurasidone HCl (Latuda Tab) 20 mg BID PO 11/16/16 21:00 12/16/16 20:59 11/18/16 08:26 20 MG Montelukast Sodium (Singulair Tab) 10 mg HS PO 11/16/16 21:00 12/16/16 20:59 11/17/16 21:15 10 MG Pantoprazole Sodium (Protonix Tab) 40 mg DAILY PO 11/16/16 16:00 12/16/16 15:59 11/18/16 08:25 40 MG Sodium Chloride ([place] Nasal [place]) 2 sprays Q12 PRN KOLE 11/16/16 21:00 12/16/16 20:59 11/16/16 15:32 2 SPRAYS Tramadol HCl (Ultram Tab) 50-100 Q6H PRN PO 11/16/16 14:45 12/16/16 14:44 11/16/16 23:26 50 MG Trazodone HCl (Desyrel Tab) 150 mg HS PO 11/16/16 21:00 12/16/16 20:59 11/17/16 21:17 150 MG Trihexyphenidyl HCl (Trihexyphenidyl HCl Tab) 2.5 mg DAILY PO 11/17/16 09:00 12/17/16 08:59 11/18/16 08:25 2.5 MG Magnesium Oxide (Mag-Ox Tab) 400 mg BID PO 11/16/16 21:00 12/16/16 20:59 11/18/16 08:24 400 MG Folic Acid (Folvite Tab) 1 mg QAM PO 11/17/16 09:00 12/17/16 08:59 11/18/16 08:24 1 MG Loperamide HCl (Imodium Cap) 2 mg TID PRN PO 11/17/16 12:45 12/17/16 12:44 Enteral Nutritional Formula (Boost) 1 can TIDM PO 11/17/16 17:00 12/17/16 16:59 11/18/16 08:29 1 CAN Objective Vital Signs Date Time Temp Pulse Resp B/P (MAP) Pulse Ox O2 Delivery O2 Flow Rate FiO2 11/18/16 08:00 96 Room Air 11/18/16 07:21 37.1 90 18 96/62 (73) 96 Room Air 11/18/16 00:00 Room Air 11/17/16 23:03 37.4 88 18 103/64 (77) 97 Room Air 11/17/16 21:39 72 97 11/17/16 16:00 Room Air 11/17/16 15:04 37.3 89 19 116/71 (86) 97 Room Air Physical Exam General Appearance: no apparent distress Respiratory/Chest: no respiratory distress, no accessory muscle use, + decreased breath sounds (R base) Cardiovascular: regular rate, rhythm, no edema, no murmur Abdomen: normal bowel sounds, non tender, soft Extremities: normal inspection, no pedal edema Neurologic/Psychiatric: no motor/sensory deficits, alert, normal mood/affect Skin: normal color Laboratory Results Last 24 Hours Test 11/17/16 13:23 7/21/17 07:42 Tumor Marker Alpha Fetoprotein 3.8 NG/ML Sodium Level 139 mmol/L Potassium Level 4.1 mmol/L Chloride Level 107 mmol/L Carbon Dioxide Level 28 mmol/L Anion Gap 4.0 mmol/L Blood Urea Nitrogen 3 mg/dl Creatinine 0.54 mg/dl Est Creatinine Clear Calc Drug Dose 125.8 ml/min Estimated GFR () 126.6 Estimated GFR (Non- 109.3 BUN/Creatinine Ratio 6.1 Random Glucose 110 mg/dl Calcium Level 7.8 mg/dl Total Bilirubin 4.1 mg/dl Aspartate Amino Transf (AST/SGOT) 206 U/L Alanine Aminotransferase (ALT/SGPT) 47 U/L Alkaline Phosphatase 114 U/L Total Protein 6.5 gm/dl Albumin 1.9 gm/dl Globulin 4.6 gm/dl Albumin/Globulin Ratio 0.4 Assessment and Plan This is a 51 year old female with a PMH of bipolar disorder, depression/anxiety , diastolic CHF, asthma, HTN, HLD, fatty liver - presents secondary to abnormal labwork Elevated Total Bilirubin/LFTs in the setting of Fatty Liver Disease vs. Hepatitis 11/18 possible alcoholic fatty liver disease induced electrolyte disturbances T. bili improving with some fluids and rest K and Mg = normalized 11/17 patient presents with total bili > 5; AST > 260 possibly related to alcohol use, though patient denies this Liver US suggests hepatic steatosis vs. hepatitis; no bile duct obstruction Pt. had Abdominal CT as outpatient as well plan for now is to monitor electrolytes and d/c with outpatient GI follow-up Electrolyte Abnormalities Severe Hypokalemia possibly secondary to alcohol use, decreased PO intake given multiple doses of K; increased from 2.4 --> 3.8 monitor K and Mg in AM and replace accordingly Bipolar/Depression/Mood Disorder continue home medications HTN continue Cozaar DVT ppx Lovenox FULL CODE
[2016-11-18 15:11] VITALS: BP 113/72; PULSE 106; TEMP 37.7; O2SAT 97
[2016-11-18] MEDS ORDERED: IMD2X PO (16:10)
[2016-11-18] MEDS ORDERED: THM100 PO (16:10)
[2016-11-18] MEDS ORDERED: NICO14DI5 TD (16:10)
[2016-11-18] MEDS ORDERED: MULT-890 PO (16:10)
[2016-11-18] MEDS ORDERED: Enteral Nutrition Formula PO (16:10)
[2016-11-18] MEDS ORDERED: FLV1 PO (16:10)
[2016-11-18] MEDS ORDERED: MGNO400 PO (16:10)
--- NOTE | 2016-11-18 16:16 | Discharge Instructions ---
Discharge Instructions Date of Service Nov 18, 2016. Admission Reason for Admission: Hypokalemia, Hepatitis With Increased Bilirubin Discharge Discharge Diagnosis / Problem: Hepatic Fatty Liver; possibly Alcohol related; Hypokalemia Discharge Goals Goal(s): Decrease discomfort, Improve function, Diagnostic testing, Therapeutic intervention Activity Recommendations Activity Limitations: resume your previous activity . Instructions / Follow-Up Instructions / Follow-Up Please follow-up with Dr. Crane on November 24 at 8:45AM You should follow-up with gastroenterology regarding your liver Repeat CMP in one week (blood work) Refrain from any alcohol use Please try to stop smoking - speak to PCP if you need help Take Imodium for any diarrhea symptoms Follow a low salt diet Current Hospital Diet Patient's current hospital diet: AHA Diet (Heart Healthy), Low Sodium Diet (2gm Na) Discharge Diet Recommended Diet: AHA Diet (Heart Healthy), Low Sodium Diet (2gm Na) Pending Studies Studies pending at discharge: no Medical Emergencies . Who to Call and When: Medical Emergencies: If at any time you feel your situation is an emergency, please call 911 immediately. . Non-Emergent Contact Non-Emergency issues call your: Primary Care Provider, [facility] . . "Provider Documentation" section prepared by Ita Williamson. . VTE Core Measure Inpt VTE Proph given/why not?: Enoxaparin (Lovenox)SQ
--- NOTE | 2016-11-18 16:17 | Discharge Summary ---
Discharge Summary Date of Service Nov 18, 2016. Discharge Summary Admission Date: Nov 16, 2016 at 12:40 Discharge Date: Nov 18, 2016 Discharge Disposition: Home Principal Diagnosis: Fatty Liver Disease, possible Alcohol related Electrolyte Abnormalities Elevated LFTs Medication Reconciliation New Medications: Folic Acid (Folic Acid) 1 Mg Tab 1 MG PO QAM for 30 Days, #30 TAB Loperamide Hcl (Imodium) 2 Mg Cap 2 MG PO TID PRN for Diarrhea for 10 Days, #30 CAP Magnesium Oxide (Magnesium-Oxide) 400 Mg Tab 400 MG PO BID for 30 Days, #60 TAB Multiple Vitamin (Daily-[place]) 1 Tab Tab 1 TAB PO QAM for 30 Days, #30 TAB Nicotine (Nicoderm Cq 14MG Patch) 14 Mg/24 Hr Dis 14 MG TD QAM for 30 Days, #1 BOX Thiamine HCl (Vitamin B-1) 100 Mg Tab 100 MG PO QAM for 30 Days, #30 TAB [Enteral Nutrition Formula] () 1 CAN LIQD 1 CAN PO TIDM for 30 Days, #120 CAN Continued Medications: Albuterol Sulf (Albuterol Sulfate) 2.5 Mg/3 Ml Nebu 1 DOSE INH Q6 PRN for Wheezing Aspirin (Aspirin Chewable) 81 Mg Chew 81 MG PO DAILY Fluticasone Prop/Salmeterol (Advair Diskus 500/50 60 Dose) 1 Ea Aerp 1 PUFF INH BID, INHALER RINSE MOUTH AFTER USE. Hydroxyzine HCl (Hydroxyzine HCl) 25 Mg Tab 25 MG PO Q4 PRN for Anxiety and/or Sedation take one at 1200 for anxiety Ipratropium [place] (Ipratropium [place]) 0.5 Mg/2.5 Ml Nebu 1 VIAL NEB Q6H PRN for Wheezing for 30 Days, #300 ML 5 Refills Ipratropium-Albuterol (Combivent Respimat) 1 Aer Aer 1 PUFF INH QID PRN for PRN, INH Lamotrigine (Lamictal) 100 Mg Tab 200 MG PO HS, TAB Lamotrigine (Lamotrigine) 100 Mg Tab 1 TAB PO DAILY for 30 Days, #30 TAB Losartan Potassium (Cozaar) 25 Mg Tab 25 MG PO DAILY, TAB Lurasidone Hcl (Latuda) 40 Mg Tab 0.5 TAB PO BID for 30 Days, #30 TAB 1 Refill Montelukast Sodium (Singulair) 10 Mg Tab 10 MG PO HS, TAB Pantoprazole Sodium (Protonix) 40 Mg Tab 40 MG PO DAILY, TAB Saline ([place] Nasal [place]) 0.65 % Spr 1 SPRAY KOLE DIRECTED Tramadol (Ultram) 50 Mg Tab 50-100 MG PO Q6H PRN for Pain, TAB Trazodone Hcl (Trazodone) 50 Mg Tab 150 MG PO HS, TAB Trihexyphenidyl Hcl (Trihexyphenidyl Hcl) 5 Mg Tab 0.5 TAB PO DAILY for 30 Days, #15 TAB 1 Refill [nebulizer device] () 1 UNIT INH DIRECTED Admission Information HPI (per Admitting provider): This is a 51yo F with PMH of chronic diastolic HF, asthma, bipolar disorder, HTN , tobacco use d/o and h/o alcohol abuse who presents directly from her PCP with hypokalemia (2.9) and an elevated bilirubin (4.7). Patient states that she does not have any acute symptoms but has been experiencing fatigue over the past 6 months as well as some nausea. Was seen by Aura BRAVO in September for nausea/ vomiting and was started on a PPI. Was also told to start a gluten free diet due to elevated celiac antibodies. Since then, the vomiting has subsided but patient has maintained a decreased appetite (1-3 small meals/day) as well as diarrhea x 2 days. Of note, patient has a history of alcohol abuse (30 cans of beer/week in her 30s, ~18oz of liquor/day 3 years ago), but states that she significantly decreased intake a few years ago to 2-4 beer cans/week. Reports that she has not had any alcohol in the last month since beginning her gluten free diet. Denies any fever/chills, cognitive deficits, CP, SOB, abdominal pain , melena, hematochezia, jaundice, tremors. Physical Exam (per Admitting): General Appearance: no apparent distress Head: normocephalic, atraumatic Eyes: + pertinent finding (scleral icterus) ENT: normal ENT inspection Neck: supple, no adenopathy, no JVD Respiratory/Chest: chest non-tender, lungs clear, normal breath sounds, no respiratory distress, no accessory muscle use Cardiovascular: regular rate, rhythm Abdomen/GI: normal bowel sounds, non tender, soft, + hepatomegaly Back: normal inspection, no CVA tenderness Extremities/Musculoskelatal: normal inspection, no calf tenderness, no pedal edema Neurologic/Psych: no motor/sensory deficits, alert, normal mood/affect, oriented x 3 Skin: warm/dry, no rash, + pertinent finding (Spider angiomatas noted on arms and abdomen) Lymphatic: no adenopathy Hospital Course This is a 51 year old female with a PMH of bipolar disorder, depression/anxiety , diastolic CHF, asthma, HTN, HLD, fatty liver - presents secondary to abnormal labwork Elevated Total Bilirubin/LFTs in the setting of Fatty Liver Disease vs. Hepatitis 11/18 possible alcoholic fatty liver disease induced electrolyte disturbances T. bili improving with some fluids and rest K and Mg = normalized 11/17 patient presents with total bili > 5; AST > 260 possibly related to alcohol use, though patient denies this Liver US suggests hepatic steatosis vs. hepatitis; no bile duct obstruction Pt. had Abdominal CT as outpatient as well plan for now is to monitor electrolytes and d/c with outpatient GI follow-up Electrolyte Abnormalities Severe Hypokalemia possibly secondary to alcohol use, decreased PO intake given multiple doses of K; increased from 2.4 --> 3.8 monitor K and Mg in AM and replace accordingly Bipolar/Depression/Mood Disorder continue home medications HTN continue Cozaar DVT ppx Lovenox FULL CODE Total time spent on discharge = 40 minutes This includes examination of the patient, discharge planning, medication reconciliation, and communication with other providers. Discharge Instructions Please follow-up with Dr. Crane on November 24 at 8:45AM You should follow-up with gastroenterology regarding your liver Repeat CMP in one week (blood work) Refrain from any alcohol use Please try to stop smoking - speak to PCP if you need help Take Imodium for any diarrhea symptoms Follow a low salt diet
[2016-11-18] MEDS ORDERED: ALBUT/IPRATROP 3MG/0.5MG NEB 3 ML VIAL INH ONE (17:30)
[2016-11-18 17:45] VITALS: PULSE 100; O2SAT 97
[2016-11-18 19:03] VITALS: BP 113/72; PULSE 100; TEMP 37.7; O2SAT 97
[2016-12-12] MEDS ORDERED: BNT20 PO (11:17)
[2016-12-12] MEDS ORDERED: SPRN100 PO (11:17)
[2016-12-12] MEDS ORDERED: PRT40 PO (11:17)
[2016-12-12] MEDS ORDERED: LACT10SO30 PO (11:17)
[2016-12-12] MEDS ORDERED: LSX40 PO (11:17)
[2016-12-12] MEDS ORDERED: ACET-1222 PO (11:19)
== END 2016-11-18 19:30 | disposition home or self-care (01) | DRG 442 ==
LOC: C.MED 12:40
PROVIDERS: ADMIT Internal Medicine; ATTEND Family Medicine
DX: K70.0 Alcoholic fatty liver (principal); I50.32 Chronic diastolic (congestive) heart failure; E87.6 Hypokalemia; E83.42 Hypomagnesemia; R19.7 Diarrhea, unspecified; J45.909 Unspecified asthma, uncomplicated; I11.0 Hypertensive heart disease with heart failure; F31.9 Bipolar disorder, unspecified; F10.10 Alcohol abuse, uncomplicated; F41.9 Anxiety disorder, unspecified; F17.200 Nicotine dependence, unspecified, uncomplicated; Z51.81 Encounter for therapeutic drug level monitoring; Z79.899 Other long term (current) drug therapy; Z79.82 Long term (current) use of aspirin; Z83.3 Family history of diabetes mellitus; Z80.8 Family history of malignant neoplasm of other organs or systems; Z80.7 Family history of other malignant neoplasms of lymphoid, hematopoietic and related tissues

== ENCOUNTER 2016-12-07 11:01 | Observation (INO) | payer OTHER ==
[~2016-12-07] VITALS: Ht 165.1 cm; Wt 77.4 kg
[~2016-12-07 11:01] MED LIST changes: +ALBINS INH; +ASPCH81X PO; +ATRINS NEB; -CARV3.122 PO; +Enteral Nutrition Formula PO; +FLV1 PO; +IMD2X PO; +LAMO1TAB21 PO; -LORA-741 PO; +LURA40TA PO; -LURA80TA PO; +MGNO400 PO; +MULT-890 PO; +NICO14DI5 TD; -NSNN50 NAE; -OXYC-643 PO; +SALI0.6510 NAE; +THM100 PO; -TIOTCAP INH; +TRIH5TAB2 PO; +[UNRECOGNIZED DRUG - SUPPLY] INH
[2016-12-07] MEDS ORDERED: SIME80CH PO (11:52)
[2016-12-07 12:23] LABS: MANUAL MICROSCOPIC REQUIRED? NO; URINE APPEARANCE CLEAR (CLEAR); URINE COLOR AMBER; URINE NITRITE NEG (NEG); URINE SPECIFIC GRAVITY <= 1.005 (1.000-1.030); UROBILINOGEN POS (NEG)
[2016-12-07 12:29] LABS: REVIEW REQ? NO; URINE BILIRUBIN 2+ (NEG)
--- NOTE | 2016-12-07 12:29 | EMERGENCY ROOM VISIT NOTE ---
History Report prepared by Sally: Shama Langston Under the Supervision of: Dr. Sylvain Molina M.D. First contact with patient: 11:55 Chief Complaint: GI ASSESSMENT Stated Complaint: BLOATED BELLY Nursing Triage Summary: pt c/o increased bloating, abdominal pain and diarrhea since last month when she was in hospital. pt was referred to ER by PCP hc alcohol cirrhosis History of Present Illness The patient is a 51 year old white female with a past medical history of alcoholic cirrhosis who presents to the ED with a cc of abdominal pain for the past week. Positive cough, congestion, nausea, vomiting, diarrhea, fever, abdominal distention. Negative sore throat, urinary symptoms, melena, hematochezia, leg swelling. She has chronic abdominal pain with her cirrhosis, but states this pain is now worse in the RUQ. She rates her pain as an 8/10 in severity. Her temperature was 101 last night. The patient states that she is no longer drinking alcohol. She was sent to the ED by her GI doctor to rule out SBP. The patient is taking all of her medications as prescribed. She takes aspirin and denies any other blood thinners. Source of History: patient Onset: 1 week ago Position: abdomen Symptom Intensity: 8/10 Timing: worsening Associated Symptoms: + fevers, + cough, + nausea, + vomiting, + diarrhea, No sorethroat, No melena, No hematochezia, No urinary symptoms Note: Pt notes abdominal distention. Pt denies leg swelling. Review of Systems See HPI for pertinent positives and negatives. A total of ten systems were reviewed and were otherwise negative. Past Medical & Surgical Medical Problems: (1) Anxiety (2) Asthma (3) Bipolar 1 disorder (4) CHF (congestive heart failure) (5) H/O alcohol abuse (6) HTN, goal below 140/90 (7) Hx of migraines (8) Increased abdominal girth (9) Sleep apnea (10) Tobacco use disorder Surgical Problems: (1) S/P cholecystectomy (2) S/P knee replacement (3) S/P tubal ligation Family History Diabetes mellitus SISTER FH: brain cancer FATHER Hodgkin's lymphoma MOTHER Social History Smoking Status: Current Every Day Smoker Alcohol Use: other (former alcoholic) Drug Use: none Marital Status: Housing Status: lives with family Current/Historical Medications Scheduled Aspirin (Aspirin Chewable), 81 MG PO DAILY Fluticasone Prop/Salmeterol (Advair Diskus 500/50 60 Dose), 1 PUFF INH BID Folic Acid (Folic Acid), 1 MG PO DAILY Lamotrigine (Lamictal), 200 MG PO HS Lamotrigine (Lamictal), 100 MG PO DAILY Losartan Potassium (Cozaar), 25 MG PO DAILY Lurasidone Hcl (Latuda), 0.5 TAB PO BID Magnesium Oxide (Magnesium-Oxide), 400 MG PO BID Montelukast Sodium (Singulair), 10 MG PO HS Multiple Vitamin (Daily-Malinda), 1 TAB PO QAM Nicotine (Nicoderm Cq 14MG Patch), 1 PATCH TD DAILY Nutritional Supplements (Boost), 1 CAN PO TIDM Pantoprazole Sodium (Protonix), 40 MG PO DAILY Saline ([place] Nasal [place]), 1 [place]AY [place] DIRECTED Thiamine HCl (Vitamin B-1), 100 MG PO QAM Trazodone Hcl (Trazodone), 150 MG PO HS Trihexyphenidyl Hcl (Trihexyphenidyl Hcl), 0.5 TAB PO DAILY Scheduled PRN Albuterol Sulf (Albuterol Sulfate), 1 DOSE INH Q6 PRN for Wheezing Hydroxyzine Hcl (Atarax), 25 MG PO Q4 PRN for Anxiety Ipratropium [place] (Ipratropium [place]), 1 VIAL NEB Q6H PRN for Wheezing Ipratropium-Albuterol (Combivent Respimat), 1 PUFF INH QID PRN for SOB/Wheezing Loperamide Hcl (Imodium), 2 MG PO TID PRN for Diarrhea Simethicone (Gas-X), 80 MG PO BID PRN for gas Tramadol (Ultram), 50-100 MG PO Q6H PRN for Pain Allergies Coded Allergies: [place] (Verified Allergy, Severe, HIVES, 05/11/15) [place] (Unverified Allergy, Mild, 05/11/15) BEE STING (Verified Allergy, Unknown, HIVES AND SWELLING, 05/11/15) POLLEN (Verified Allergy, Unknown, UNKNOWN, 05/11/15) Physical Exam Vital Signs Date Time Temp Pulse Resp B/P (MAP) Pulse Ox O2 Delivery O2 Flow Rate FiO2 12/07/16 15:11 83 17 115/62 94 12/07/16 13:01 87 12/07/16 12:54 85 16 122/67 98 Room Air 12/07/16 11:18 37.0 91 22 135/72 95 Room Air Physical Exam GENERAL: Awake, alert, well-appearing, NAD HENT: Normocephalic, atraumatic. Edentulous. EYES: Normal conjunctiva. Scleral icterus bilaterally. NECK: Supple. No nuchal rigidity. FROM. RESPIRATORY: CTAB, no rhonchi, wheezing, crackles CARDIAC: RRR, 2/6 systolic ejection murmur. ABDOMEN: Soft, mildly diffusely tender to palpation radiates to RUQ and epigastric areas, BS+ MSK: No chest wall TTP, no LE edema, no bruising or ecchymosis noted. No CVA tenderness NEURO: GCS 15, CN 2-12 intact, moves all 4s on command SKIN: No rash. Mild jaundice of the skin. Medical Decision & Procedures ER Provider Diagnostic Interpretation: I performed a bedside FAST ultrasound which revealed a small pocket of ascites right lower and right upper quadrants with too much bowel present. Radiology results as stated below per my review and radiologist interpretation: ABD/PELVIS IV AND ORAL CONT HISTORY: 51 years-old Female acute diffuse abdominal pain COMPARISON: Ultrasound of the abdominal right upper quadrant 11/17/2016, CT chest 05/28/2011. TECHNIQUE: Multiple axial CT images of the abdomen and pelvis were obtained following the intravenous administration of 116 mL Optiray 320. Oral contrast was also used. A dose lowering technique was used consistent with the principals of ALARA. FINDINGS: There is minimal dependent bibasilar atelectasis. There is no pneumoperitoneum. There is mild enlargement of the imaged inferior cardiac chambers. Liver is enlarged and heterogeneous with mild marginal nodularity. No focal hepatic mass lesions are identified. Prior cholecystectomy. Spleen is enlarged measuring up to 15 cm containing multiple parenchymal calcifications. The pancreas and adrenal glands are within normal limits. There is dilation of the common bile duct likely from physiologic postcholecystectomy state measuring up to 9 mm. Kidneys, ureters and urinary bladder are within normal limits. There is a pedunculated fibroid of the fundal uterus, 2.1 x 2.4 cm. There is moderate atherosclerosis of the abdominal aorta. 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 There is mild to moderate amount of intra-abdominal ascites, notably in the perihepatic and perisplenic spaces, dependent pelvis and pericolic gutters. Varices are seen adjacent to the gastric cardia and proximal fundus without large distal esophageal varices identified. There is no bowel obstruction. The appendix is opacified and appears normal. There is mild diffuse body wall edema. Degenerative changes involve the sacroiliac joints bilaterally. Prior posterior decompression with posterior interbody anna and screw fixation at the L3-S1 levels. Alignment is satisfactory. No evidence of hardware complication. IMPRESSION: 1. Cirrhotic liver disease with stigmata of portal hypertension including splenomegaly, mild to moderate intra-abdominal and intrapelvic ascites with associated portosystemic varices. 2. Prior cholecystectomy. 3. Normal appendix. 4. Pedunculated fibroid of the fundal uterus is seen, 2.4 cm. The above report was generated using voice recognition software. It may contain grammatical, syntax or spelling errors. Electronically signed by: Shady Carter M.D. 12/07/2016 3:49 PM Dictated Date/Time: 12/07/2016 3:39 PM Laboratory Results 12/07/16 12:05 Red Blood Count 3.15, Mean Corpuscular Volume 105.7, Mean Corpuscular Hemoglobin 35.6, Mean Corpuscular Hemoglobin Concent 33.6, Mean Platelet Volume 10.2, Neutrophils (%) (Auto) 76.7, Lymphocytes (%) (Auto) 14.3, Monocytes (%) ( Auto) 7.4, Eosinophils (%) (Auto) 0.9, Basophils (%) (Auto) 0.5, Neutrophils # ( Auto) 11.66, Lymphocytes # (Auto) 2.17, Monocytes # (Auto) 1.13, Eosinophils # ( Auto) 0.14, Basophils # (Auto) 0.07 12/07/16 12:05 Test 12/07/16 11:31 12/07/16 12:05 12/07/16 12:52 12/07/16 13:09 Urine Color CASSIE Urine Appearance CLEAR (CLEAR) Urine pH 7.0 (4.5-7.5) Urine Specific [place] <= 1.005 (1.000-1.030) Urine Protein NEG (NEG) Urine Glucose (UA) NEG (NEG) Urine Ketones NEG (NEG) Urine Occult Blood NEG (NEG) Urine Nitrite NEG (NEG) Urine Bilirubin 2+ (NEG) Urine Urobilinogen POS (NEG) Urine Leukocyte Esterase NEG (NEG) White Blood Count 15.20 K/uL (4.8-10.8) Red Blood Count 3.15 M/uL (4.2-5.4) Hemoglobin 11.2 g/dL (12.0-16.0) Hematocrit 33.3 % (37-47) Mean Corpuscular Volume 105.7 fL (80-100) Mean Corpuscular Hemoglobin 35.6 pg (25-34) Mean Corpuscular Hemoglobin Concent 33.6 g/dl (32-36) Platelet Count 213 K/uL (130-400) Mean Platelet Volume 10.2 fL (7.4-10.4) Neutrophils (%) (Auto) 76.7 % Lymphocytes (%) (Auto) 14.3 % Monocytes (%) (Auto) 7.4 % Eosinophils (%) (Auto) 0.9 % Basophils (%) (Auto) 0.5 % Neutrophils # (Auto) 11.66 K/uL (1.4-6.5) Lymphocytes # (Auto) 2.17 K/uL (1.2-3.4) Monocytes # (Auto) 1.13 K/uL (0.11-0.59) Eosinophils # (Auto) 0.14 K/uL (0-0.5) Basophils # (Auto) 0.07 K/uL (0-0.2) RDW Standard Deviation 62.1 fL (36.4-46.3) RDW Coefficient of Variation 16.0 % (11.5-14.5) Immature Granulocyte % (Auto) 0.2 % Immature Granulocyte # (Auto) 0.03 K/uL (0.00-0.02) Anion Gap 6.0 mmol/L (3-11) Est Creatinine Clear Calc Drug Dose 129.2 ml/min Estimated GFR () 127.4 Estimated GFR (Non- 109.9 BUN/Creatinine Ratio 6.5 (10-20) Calcium Level 8.3 mg/dl (8.5-10.1) Total Bilirubin 6.1 mg/dl (0.2-1) Direct Bilirubin 3.4 mg/dl (0-0.2) Aspartate Amino Transf (AST/SGOT) 167 U/L (15-37) Alanine Aminotransferase (ALT/SGPT) 35 U/L (12-78) Alkaline Phosphatase 132 U/L (45-117) Total Protein 7.8 gm/dl (6.4-8.2) Albumin 2.0 gm/dl (3.4-5.0) Lipase 171 U/L (73-393) Bedside Lactic Acid Venous 0.73 mmol/L (0.90-1.70) Venous Blood pH 7.45 (7.36-7.41) Venous Blood Partial Pressure CO2 40 mmHg (38.0-50.0) Venous Blood Partial Pressure O2 30 mmHg Venous Blood HCO3 27 mmol/L Venous Blood Oxygen Saturation < 60.0 % Venous Blood Base Excess 2.9 mEq/L Date/Time Source Procedure Growth Status 12/07/16 00:00 Stool C.difficile Toxin B Gene (PCR) - Final No C. difficile toxin B gene detected Complete Laboratory results reviewed by me. ED Course 1202: I spoke with KIRA Sanchez with GI. We discussed the patient' s case. 1203: The patient was evaluated in room C10. A complete history and physical exam was performed. 1359: I performed a bedside FAST ultrasound at this time which revealed a small pocket of ascites right lower and right upper quadrants with too much bowel present. 1610: I discussed the patient's case with KIRA Sanchez with GI. We discussed the patient's results and treatment plan. She recommended keeping the patient in the hospital. 1621: I reassessed the patient at this time. She is feeling better and resting comfortably. I discussed the results and treatment plan with the patient. I answered all pertaining questions that she had. She expressed understanding and verbalized agreement. 1627: I spoke with Sarah Beth Ochoa PA-C. We discussed the patients case. [facility] Medical Decision Differential diagnoses includes SBP, worsening hepatitis, enteritis, UTI. The patient is a 51 year old white female with a past medical history of alcoholic cirrhosis who presents to the ED with a cc of abdominal pain for the past week. Patient had labwork as well as a UA and CT of the abdomen and pelvis ordered. Patient had a fairly unremarkable CT of the abdomen and pelvis which showed stigmata of her prior known cirrhosis. Patient had a negative UA patient did have a mildly elevated white count greater than 15,000. Given the patient's diffusely abdominal tenderness to palpation mostly GI agreed the patient should be ruled out for spontaneous bacterial peritonitis. + Ultrasound was remarkable for a pocket of fluid in the right side of the abdomen however not safe at the bedside at this time. I spoke with the hospitalist service who agreed that the patient would benefit from admission for further management and treatment. Patient was admitted. Of note patient did have some stool studies ordered and were still pending at time of admission. Medication Reconcilliation Current Medication List: was personally reviewed by me Blood Pressure Screening Patient's blood pressure: Normal blood pressure Consults Time Called: 1202 Consulting Physician: KIRA Willis Returned Call: 1202 I spoke with KIRA Sanchez with GI. We discussed the patient's case. Additional Consults: Time Called: 1608 Consulted Physician: KIRA Willis Returned Call: 1610 Additional Comments: I discussed the patient's case with KIRA Sanchez with GI. We discussed the patient's results and treatment plan. She recommended keeping the patient in the hospital. Time Called: 1625 Consulted Physician: Sarah Beth Ochoa PA-C Returned Call: 1627 Additional Comments: I spoke with Sarah Beth Ochoa PA-C. We discussed the patients case. The patient will be evaluated by the [facility] for further management. Impression Primary Impression: SBP (spontaneous bacterial peritonitis) Additional Impressions: Abdominal pain Diarrhea Scribe Attestation The scribe's documentation has been prepared under my direction and personally reviewed by me in its entirety. I confirm that the note above accurately reflects all work, treatment, procedures, and medical decision making performed by me. Departure Information Dispostion Being Evaluated By Hospitalist Referrals No Doctor, Assigned (PCP) Forms HOME CARE DOCUMENTATION FORM, IMPORTANT VISIT INFORMATION Patient Instructions My [facility] Problem Qualifiers
[2016-12-07 13:10] LABS: ZZUR CULT IF INDIC CLEAN CATCH NO
[2016-12-07 13:22] LABS: VEN BLOOD GAS BASE EXCESS 2.9 mEq/L; VENOUS BLOOD GAS PCO2 40 mmHg (38.0-50.0); VENOUS BLOOD GAS PO2 30 mmHg
[2016-12-07 13:22] LABS: BUN/CREATININE RATIO 6.5 (10-20); CALCIUM 8.3 mg/dl (8.5-10.1); CREATININE 0.53 mg/dl (0.60-1.20); POTASSIUM 3.3 mmol/L (3.5-5.1)
[2016-12-07 13:28] LABS: VEN BLD GAS O2 SATURATION < 60.0 %
[2016-12-07 13:30] LABS: BASO % 0.5 %; BASO ABS # 0.07 K/uL (0-0.2); COMPLETE YES; EOS % 0.9 %; HEMATOCRIT 33.3 % (37-47); IG% 0.2 %; LYMPH % 14.3 %; LYMPH ABS # 2.17 K/uL (1.2-3.4); MEAN CELL VOLUME 105.7 fL (80-100); MEAN CORPUSCULAR HEMOGLOBIN 35.6 pg (25-34); MEAN CORPUSCULAR HGB CONC 33.6 g/dl (32-36); MEAN PLATELET VOLUME 10.2 fL (7.4-10.4); MONO % 7.4 %; NEUT % 76.7 %; PLATELET COUNT 213 K/uL (130-400); RED BLOOD COUNT 3.15 M/uL (4.2-5.4)
--- NOTE | 2016-12-07 15:50 | DIAGNOSTIC IMAGING REPORT ---
ABD/PELVIS IV AND ORAL CONT HISTORY: 51 years-old Female acute diffuse abdominal pain COMPARISON: Ultrasound of the abdominal right upper quadrant 11/17/2016, CT chest 05/28/2011. TECHNIQUE: Multiple axial CT images of the abdomen and pelvis were obtained following the intravenous administration of 116 mL Optiray 320. Oral contrast was also used. A dose lowering technique was used consistent with the principals of TESSY. FINDINGS: There is minimal dependent bibasilar atelectasis. There is no pneumoperitoneum. There is mild enlargement of the imaged inferior cardiac chambers. Liver is enlarged and heterogeneous with mild marginal nodularity. No focal hepatic mass lesions are identified. Prior cholecystectomy. Spleen is enlarged measuring up to 15 cm containing multiple parenchymal calcifications. The pancreas and adrenal glands are within normal limits. There is dilation of the common bile duct likely from physiologic postcholecystectomy state measuring up to 9 mm. Kidneys, ureters and urinary bladder are within normal limits. There is a pedunculated fibroid of the fundal uterus, 2.1 x 2.4 cm. There is moderate atherosclerosis of the abdominal aorta. 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 There is mild to moderate amount of intra-abdominal ascites, notably in the perihepatic and perisplenic spaces, dependent pelvis and pericolic gutters. Varices are seen adjacent to the gastric cardia and proximal fundus without large distal esophageal varices identified. There is no bowel obstruction. The appendix is opacified and appears normal. There is mild diffuse body wall edema. Degenerative changes involve the sacroiliac joints bilaterally. Prior posterior decompression with posterior interbody anna and screw fixation at the L3-S1 levels. Alignment is satisfactory. No evidence of hardware complication. IMPRESSION: 1. Cirrhotic liver disease with stigmata of portal hypertension including splenomegaly, mild to moderate intra-abdominal and intrapelvic ascites with associated portosystemic varices. 2. Prior cholecystectomy. 3. Normal appendix. 4. Pedunculated fibroid of the fundal uterus is seen, 2.4 cm. The above report was generated using voice recognition software. It may contain grammatical, syntax or spelling errors. Electronically signed by: Shady Carter M.D. 12/07/2016 3:49 PM Dictated Date/Time: 12/07/2016 3:39 PM
[2016-12-07] MEDS ORDERED: FLV1 PO (17:26)
[2016-12-07] MEDS ORDERED: HYDR-3124 PO (17:26)
[2016-12-07] MEDS ORDERED: NICO14DI5 TD (17:26)
[2016-12-07] MEDS ORDERED: LAMO100T16 PO (17:26)
[2016-12-07] MEDS ORDERED: NUTR-7 PO (17:26)
[2016-12-07] MEDS ORDERED: POTASSIUM CHLORIDE 10 MEQ TABCR PO STA (17:49)
[2016-12-07] MEDS ORDERED: SIMETHICONE 80 MG CHEW PO PRN (18:00)
[2016-12-07] MEDS ORDERED: ALUMINUM/MAGNESIUM SUSP 30 ML UDC PO PRN (18:00)
[2016-12-07 18:27] VITALS: BP 122/69; PULSE 80; TEMP 37.2; O2SAT 95
[2016-12-07] MEDS ORDERED: IV FLUIDS COMPLETED PRN (18:30)
--- NOTE | 2016-12-07 18:44 | History and Physical ---
History & Physical Date & Time of Service: Dec 07, 2016 at 17:25 Chief Complaint: Bloated Belly Primary Care Physician: Rangel Crane D.O. History of Present Illness Source: patient, clinic records, hospital records This is a 51 y/o female with PMH of fatty liver disease, possible alcohol related, chronic diastolic CHF, asthma, bipolar disorder, HTN, and other problems listed below who presents to the ED with abdominal bloating. Patient was recently admitted from November 16-2016 for electrolyte abnormalities and elevated LFT's seen on outpatient labs. During admission liver US suggested hepatic steatosis vs. hepatitis; no bile duct obstruction. She was seen by GI who considered alcohol the most likely cause of her liver disease. Per GI note, past testing included NA, AMA, ASMA, tissue transglutaminase, hepatitis AB and C testing were all negative. Had prior EGD and colo on 09/22/[address] Mccain were normal except for two 2-9 mm polyps in ascending colon. She was planned to have hemochromatosis HFE testing. Pt states since discharge on November 18 she has gradually increasing abdominal bloating which increased in severity over past few days. She reports associated low grade fever (Tmax 100.1 yesterday), chills, diffuse abdominal pain which worsens with deep inspiration. Has mild nausea when she eats. Has diarrhea x 2 days. Denies bloody or tarry stools. She admits to jaundice and easy bruising/ bleeding, but no active bleeding. No chest pain, SOB, itching. Patient called [facility] yesterday for her symptoms and today Breanna Pang told her to present to the ER to rule out SBP. Past Medical/Surgical History Medical Problems: (1) Anxiety Status: Chronic (2) Asthma Status: Chronic (3) Bipolar 1 disorder Status: Chronic (4) CHF (congestive heart failure) Status: Chronic (5) H/O alcohol abuse Status: Chronic (6) HTN, goal below 140/90 Status: Chronic (7) Hx of migraines Status: Chronic (8) Sleep apnea Status: Chronic (9) Tobacco use disorder Status: Chronic Surgical Problems: (1) S/P cholecystectomy Status: Resolved (2) S/P knee replacement Status: Resolved (3) S/P tubal ligation Status: Resolved Family History Diabetes mellitus SISTER FH: brain cancer FATHER Hodgkin's lymphoma MOTHER Social History Smoking Status: Current Every Day Smoker (4 cigarettes per day) Alcohol Use: reports no alcohol use since last admission. last drink approximately 3 weeks ago. history of heavy alcohol use in the past. Marital Status: Housing status: lives with family Immunizations History of Influenza Vaccine: No History of Tetanus Vaccine?: Unknown History of Pneumococcal: No History of Hepatitis B Vaccine: Unknown Hepatitis Immunization Date: Feb 01, 2005 Multi-Drug Resistant Organisms History of MDRO: No Allergies Coded Allergies: [place] (Verified Allergy, Severe, HIVES, 05/11/15) [place] Tar (Unverified Allergy, Mild, 05/11/15) BEE STING (Verified Allergy, Unknown, HIVES AND SWELLING, 05/11/15) POLLEN (Verified Allergy, Unknown, UNKNOWN, 05/11/15) Home Medications Scheduled Aspirin (Aspirin Chewable), 81 MG PO DAILY Fluticasone Prop/Salmeterol (Advair Diskus 500/50 60 Dose), 1 PUFF INH BID Folic Acid (Folic Acid), 1 MG PO DAILY Lamotrigine (Lamictal), 200 MG PO HS Lamotrigine (Lamictal), 100 MG PO DAILY Losartan Potassium (Cozaar), 25 MG PO DAILY Lurasidone Hcl (Latuda), 0.5 TAB PO BID Magnesium Oxide (Magnesium-Oxide), 400 MG PO BID Montelukast Sodium (Singulair), 10 MG PO HS Multiple Vitamin (Daily-Malinda), 1 TAB PO QAM Nicotine (Nicoderm Cq 14MG Patch), 1 PATCH TD DAILY Nutritional Supplements (Boost), 1 CAN PO TIDM Pantoprazole Sodium (Protonix), 40 MG PO DAILY Saline ([place] Nasal [place]), 1 SPRAY [place] DIRECTED Thiamine HCl (Vitamin B-1), 100 MG PO QAM Trazodone Hcl (Trazodone), 150 MG PO HS Trihexyphenidyl Hcl (Trihexyphenidyl Hcl), 0.5 TAB PO DAILY Scheduled PRN Albuterol Sulf (Albuterol Sulfate), 1 DOSE INH Q6 PRN for Wheezing Hydroxyzine Hcl (Atarax), 25 MG PO Q4 PRN for Anxiety Ipratropium Sylvester (Ipratropium Sylvester), 1 VIAL NEB Q6H PRN for Wheezing Ipratropium-Albuterol (Combivent Respimat), 1 PUFF INH QID PRN for SOB/Wheezing Loperamide Hcl (Imodium), 2 MG PO TID PRN for Diarrhea Simethicone (Gas-X), 80 MG PO BID PRN for gas Tramadol (Ultram), 50-100 MG PO Q6H PRN for Pain Review of Systems Ten systems reviewed and negative except as noted in HPI. Physical Exam Vital Signs Date Time Temp Pulse Resp B/P (MAP) Pulse Ox O2 Delivery O2 Flow Rate FiO2 12/07/16 15:11 83 17 115/62 94 12/07/16 13:01 87 12/07/16 12:54 85 16 122/67 98 Room Air 12/07/16 11:18 37.0 91 22 135/72 95 Room Air General Appearance: WD/WN, no apparent distress, + pertinent finding ( and father at bedside) Head: normocephalic, atraumatic Eyes: PERRL, + pertinent finding (scleral icterus) ENT: hearing grossly normal, pharynx normal Neck: supple, trachea midline Respiratory/Chest: lungs clear, normal breath sounds, no respiratory distress, no accessory muscle use Cardiovascular: regular rate, rhythm, no murmur Abdomen/GI: normal bowel sounds, soft, + pertinent finding (mildly distended. mild RUQ tenderness) Extremities/Musculoskelatal: no calf tenderness, no pedal edema Neurologic/Psych: alert, normal mood/affect, oriented x 3 Skin: normal color, warm/dry Diagnostics Laboratory Results Results Past 24 Hours Test 12/07/16 11:31 12/07/16 12:05 12/07/16 12:52 12/07/16 13:09 Range/Units Urine Color CASSIE Urine Appearance CLEAR CLEAR Urine pH 7.0 4.5-7.5 Urine Specific [place] <= 1.005 1.000-1.030 Urine Protein NEG NEG Urine Glucose (UA) NEG NEG Urine Ketones NEG NEG Urine Occult Blood NEG NEG Urine Nitrite NEG NEG Urine Bilirubin 2+ NEG Urine Urobilinogen POS NEG Urine Leukocyte Esterase NEG NEG White Blood Count 15.20 4.8-10.8 K/uL Red Blood Count 3.15 4.2-5.4 M/uL Hemoglobin 11.2 12.0-16.0 g/dL Hematocrit 33.3 37-47 % Mean Corpuscular Volume 105.7 80-100 fL Mean Corpuscular Hemoglobin 35.6 25-34 pg Mean Corpuscular Hemoglobin Concent 33.6 32-36 g/dl Platelet Count 213 130-400 K/uL Mean Platelet Volume 10.2 7.4-10.4 fL Neutrophils (%) (Auto) 76.7 % Lymphocytes (%) (Auto) 14.3 % Monocytes (%) (Auto) 7.4 % Eosinophils (%) (Auto) 0.9 % Basophils (%) (Auto) 0.5 % Neutrophils # (Auto) 11.66 1.4-6.5 K/uL Lymphocytes # (Auto) 2.17 1.2-3.4 K/uL Monocytes # (Auto) 1.13 0.11-0.59 K/uL Eosinophils # (Auto) 0.14 0-0.5 K/uL Basophils # (Auto) 0.07 0-0.2 K/uL RDW Standard Deviation 62.1 36.4-46.3 fL RDW Coefficient of Variation 16.0 11.5-14.5 % Immature Granulocyte % (Auto) 0.2 % Immature Granulocyte # (Auto) 0.03 0.00-0.02 K/uL Sodium Level 140 136-145 mmol/L Potassium Level 3.3 3.5-5.1 mmol/L Chloride Level 107 98-107 mmol/L Carbon Dioxide Level 27 21-32 mmol/L Anion Gap 6.0 3-11 mmol/L Blood Urea Nitrogen 3 7-18 mg/dl Creatinine 0.53 0.60-1.20 mg/dl Est Creatinine Clear Calc Drug Dose 129.2 ml/min Estimated GFR () 127.4 Estimated GFR (Non- 109.9 BUN/Creatinine Ratio 6.5 10-20 Random Glucose 90 70-99 mg/dl Calcium Level 8.3 8.5-10.1 mg/dl Total Bilirubin 6.1 0.2-1 mg/dl Direct Bilirubin 3.4 0-0.2 mg/dl Aspartate Amino Transf (AST/SGOT) 167 15-37 U/L Alanine Aminotransferase (ALT/SGPT) 35 12-78 U/L Alkaline Phosphatase 132 45-117 U/L Total Protein 7.8 6.4-8.2 gm/dl Albumin 2.0 3.4-5.0 gm/dl Lipase 171 73-393 U/L Bedside Lactic Acid Venous 0.73 0.90-1.70 mmol/L Venous Blood pH 7.45 7.36-7.41 Venous Blood Partial Pressure CO2 40 38.0-50.0 mmHg Venous Blood Partial Pressure O2 30 mmHg Venous Blood HCO3 27 mmol/L Venous Blood Oxygen Saturation < 60.0 % Venous Blood Base Excess 2.9 mEq/L Microbiology Results 12/07/16 C.difficile Toxin B Gene (PCR) - Final, Complete No C. difficile toxin B gene detected 12/07/16 Shiga Toxin Test, Received Pending 12/07/16 Stool Culture, Received Pending Diagnostic Radiology ABD/PELVIS IV AND ORAL CONT IMPRESSION: 1. Cirrhotic liver disease with stigmata of portal hypertension including splenomegaly, mild to moderate intra-abdominal and intrapelvic ascites with associated portosystemic varices. 2. Prior cholecystectomy. 3. Normal appendix. 4. Pedunculated fibroid of the fundal uterus is seen, 2.4 cm. Impression Assessment and Plan ASCITES In setting of alcoholic cirrhosis; rule out SBP CT abdomen- Cirrhotic liver disease with stigmata of portal hypertension including splenomegaly, mild to moderate intra-abdominal and intrapelvic ascites with associated portosystemic varices Not indicated for antibiotics at this time- leukocytosis noted (WBC 15K), however afebrile, vitals are stable Would obtain blood cultures if patient spikes a fever Therapeutic and diagnostic paracentesis tomorrow AM LFT's- albumin 2.0, alk phos 132, ALT 35, AST 167, total bili 6.1 (stable from recent outpatient labs except for tbili is increased- was in high 5's-low 5's over past 2 weeks) Check coags- pending DIARRHEA Stool studies ordered by ER- C diff negative, culture pending HYPOKALEMIA Replace and monitor Check magnesium HYPERTENSION Continue losartan BIPOLAR DISORDER Continue home medications ASTHMA Not in acute exacerbation Continue home inhalers and Singulair SLEEP APNEA Continue CPAP DVT PROPHYLAXIS Lovenox SQ FULL CODE DISPOSITION Observation to med/ surg Follows with Dr. Crane for primary care Patient seen in collaboration with Dr. Khan. Please see his addendum. Attending Addendum I have performed the physical exam with the provider Gabriela and agree with her plan as above and in addition would comment that this patient is: A 51 year F with PMH of liver disease from cirrhosis likely due to past use of alcohol. She has reported that she has stopped drinking 3 weeks ago without withdrawal symptoms however has been having increased abdominal girth. She was sent from outpatient care for rule out of spontaneous bacterial peritonitis as she may have had a low grade fever. On admission she is not documented to have an elevated temperature however has leukocytosis. In the ED she has had imaging supporting ascites however it is unclear whether there is enough ascites fluid for the ED provider to obtain for diagnostic tap. As such there are plans for ultrasound guided paracentesis to be performed by the radiology department. Patient has been hemodynamically stable and no acute peritoneal signs on physical exam. Despite jaundice noted in her eyes and labs showing elevated bilirubin, she is not in distress or having poor mentation. Blood cultures have been ordered in case there may be a bloodborne infection. However there does not appear to be urgent need to give antibiotics emergently for SBP coverage at this time given her current stable clinical state and antibiotics given prior to paracentesis may reduce the diagnostic yield of the ascites specimen. Will also send labs to check patient's INR but even if these levels were elevated, it would be advisable to continue DVT prophylaxis medication given that cirrhosis is a prothrombotic state. Obtain type and screen prior to paracentesis. Check magnesium levels and replete potassium.Continue blood pressure medication as long as MAP above 60. Continue medications for mood disorders. CPAP for sleep apnea VTE Prophylaxis VTE Risk Assessment Done? Y/N: Yes Risk Level: Moderate
[2016-12-07] MEDS ORDERED: ALBUT/IPRATROP 3MG/0.5MG NEB 3 ML VIAL INH PRN (18:45)
[2016-12-07 18:56] VITALS: BP 122/69; PULSE 80; TEMP 37.2; Ht 165.1 cm; Wt 77.4 kg
[2016-12-07 18:59] LABS: MAGNESIUM 1.9 mg/dl (1.8-2.4)
[2016-12-07 19:12] LABS: INR 1.5 (0.9-1.1); PARTIAL THROMBOPLASTIN RATIO 1.4; PROTHROMBIN TIME (PATIENT) 16.1 SECONDS (9.0-12.0)
[2016-12-07] MEDS: POTASSIUM CHLR 10 MEQ / WTR 10 MEQ in PREMIXED WATER 100 ML IV SCH ×3 (19:23→21:53)
[2016-12-07 20:52] VITALS: PULSE 74; O2SAT 95
[2016-12-07] MEDS: ALBUT/IPRATROP 3MG/0.5MG NEB 3 ML VIAL INH SCH (20:52)
[2016-12-07] MEDS: FLUTICASONE/SALMETEROL (ADVAIR) 500/50 INH 14 PUFF INH SCH (21:14)
[2016-12-07] MEDS: MONTELUKAST SOD 10 MG TAB PO SCH (21:15)
[2016-12-07] MEDS: MAGNESIUM OXIDE 400 MG TAB PO SCH (21:15)
[2016-12-07] MEDS ORDERED: TRAZODONE HCL 100 MG TAB PO ONE (21:55)
[2016-12-07 22:28] VITALS: BP 105/53; PULSE 86; TEMP 37; O2SAT 93
[2016-12-08] VITALS (9 sets, daily range): BP systolic 100–109; BP diastolic 51–64; PULSE 79–90; TEMP 36.9–37.5; O2SAT 90–100
[2016-12-08] MEDS: ALBUT/IPRATROP 3MG/0.5MG NEB 3 ML VIAL INH SCH ×4 (06:57→19:25)
[2016-12-08 08:02] LABS: BASO % 0.5 %; BASO ABS # 0.06 K/uL (0-0.2); COMPLETE YES; EOS % 1.1 %; IG% 0.3 %; LYMPH % 18.3 %; LYMPH ABS # 2.37 K/uL (1.2-3.4); MEAN CELL VOLUME 104.7 fL (80-100); MEAN CORPUSCULAR HEMOGLOBIN 36.1 pg (25-34); MEAN CORPUSCULAR HGB CONC 34.5 g/dl (32-36); MONO % 8.3 %; NEUT % 71.5 %; PLATELET COUNT 188 K/uL (130-400); RED BLOOD COUNT 2.77 M/uL (4.2-5.4); WHITE BLOOD COUNT 12.96 K/uL (4.8-10.8)
[2016-12-08 08:10] LABS: INR 1.5 (0.9-1.1); PARTIAL THROMBOPLASTIN RATIO 1.4; PROTHROMBIN TIME (PATIENT) 16.3 SECONDS (9.0-12.0)
[2016-12-08] MEDS: FLUTICASONE/SALMETEROL (ADVAIR) 500/50 INH 14 PUFF INH SCH ×2 (08:16→21:00)
[2016-12-08] MEDS: NICOTINE 14 MG/24 HR TDSY TD SCH (08:17)
[2016-12-08] MEDS: ENOXAPARIN 40 MG/0.4 ML SYR SQ SCH (08:18)
[2016-12-08] MEDS: THIAMINE HCL 100 MG TAB PO SCH (08:19)
[2016-12-08] MEDS: ASPIRIN 81 MG ECTAB PO SCH (08:19)
[2016-12-08] MEDS: LOSARTAN POTASSIUM 25 MG TAB PO SCH (08:19)
[2016-12-08] MEDS: PANTOprazole SOD 40 MG TAB PO SCH (08:19)
[2016-12-08] MEDS: MAGNESIUM OXIDE 400 MG TAB PO SCH ×2 (08:20→21:00)
[2016-12-08 08:31] LABS: BUN/CREATININE RATIO 8.4 (10-20); CALCIUM 8.2 mg/dl (8.5-10.1); CREATININE 0.56 mg/dl (0.60-1.20); POTASSIUM 3.6 mmol/L (3.5-5.1)
[2016-12-08 08:33] LABS: ALB/GLOB RATIO 0.3 (0.9-2)
--- NOTE | 2016-12-08 09:50 | DIAGNOSTIC IMAGING REPORT ---
ASCITES-ABDOMEN LIMITED ULTRASOUND CLINICAL HISTORY: diagnostic and therapeutic paracentesis COMPARISON STUDY: Abdomen and pelvis 12/07/2016. FINDINGS: There is a small volume of ascites. Dominant pocket within the right lower quadrant was not accessible due to the overlying inferior epigastric vessels. Therefore, a paracentesis was not performed at this time. IMPRESSION: Small volume ascites. Dominant pocket within the right lower quadrant was not accessible due to the overlying inferior epigastric vessels. Electronically signed by: Dillon Whaley M.D. 12/08/2016 9:49 AM Dictated Date/Time: 12/08/2016 9:46 AM
[2016-12-08] MEDS ORDERED: hydrOXYzine HCL 25 MG TAB PO PRN (14:15)
[2016-12-08] MEDS ORDERED: LURASIDONE HCL 40 MG TAB PO SCH (17:00)
[2016-12-08] MEDS ORDERED: NURSING VERBAL MED ORDER ONE (17:45)
[2016-12-08] MEDS: TRAMADOL HCL 50 MG TAB PO PRN (20:56)
[2016-12-08] MEDS: LURASIDONE HCL 40 MG TAB PO SCH (20:57)
[2016-12-08] MEDS: MONTELUKAST SOD 10 MG TAB PO SCH (20:58)
[2016-12-08] MEDS: TRAZODONE HCL 100 MG TAB PO SCH (20:59)
[2016-12-08] MEDS ORDERED: TRAZODONE HCL 50 MG TAB PO SCH (21:00)
--- NOTE | 2016-12-08 21:17 | Progress Note ---
Medicine Progress Note Date & Time of Visit: Dec 08, 2016 at 14:00 . Subjective History of hepatitis felt to be secondary to alcohol. Has not been drinking since last admission. Admitted yesterday with worsening abdominal pain. No nausea, vomiting, melena, hematochezia. Went for US guided paracentesis this morning, but procedure not performed due to small volume of ascitic fluid + prominent overlying epigastric vessels. No fever. No cough or SOB. No chest pain. Complains of right knee pain. No trauma. . Objective Last 8 Hrs Date Time Temp Pulse Resp B/P (MAP) Pulse Ox O2 Delivery O2 Flow Rate FiO2 12/08/16 20:00 Room Air 12/08/16 19:25 90 16 96 Room Air 12/08/16 16:09 96 Room Air 12/08/16 15:44 86 16 96 Room Air 12/08/16 15:25 37.1 87 16 100/51 (67) 90 Room Air Physical Exam: General- no distress Eyes- sclerae icteric Lungs- clear Heart- RRR Abdomen- slightly distended, + BS, moderate RUQ tenderness Extremities- no pretibial edema or calf tenderness; no effusion or warmth right knee Neuro- alert . Laboratory Results: Last 24 Hours Test 12/08/16 07:16 White Blood Count 12.96 K/uL Red Blood Count 2.77 M/uL Hemoglobin 10.0 g/dL Hematocrit 29.0 % Mean Corpuscular Volume 104.7 fL Mean Corpuscular Hemoglobin 36.1 pg Mean Corpuscular Hemoglobin Concent 34.5 g/dl Platelet Count 188 K/uL Mean Platelet Volume 10.0 fL Neutrophils (%) (Auto) 71.5 % Lymphocytes (%) (Auto) 18.3 % Monocytes (%) (Auto) 8.3 % Eosinophils (%) (Auto) 1.1 % Basophils (%) (Auto) 0.5 % Neutrophils # (Auto) 9.27 K/uL Lymphocytes # (Auto) 2.37 K/uL Monocytes # (Auto) 1.08 K/uL Eosinophils # (Auto) 0.14 K/uL Basophils # (Auto) 0.06 K/uL RDW Standard Deviation 61.2 fL RDW Coefficient of Variation 16.0 % Immature Granulocyte % (Auto) 0.3 % Immature Granulocyte # (Auto) 0.04 K/uL Prothrombin Time 16.3 SECONDS Prothromb Time International Ratio 1.5 Activated Partial Thromboplast Time 36.4 SECONDS Partial Thromboplastin Ratio 1.4 Sodium Level 139 mmol/L Potassium Level 3.6 mmol/L Chloride Level 107 mmol/L Carbon Dioxide Level 24 mmol/L Anion Gap 8.0 mmol/L Blood Urea Nitrogen 5 mg/dl Creatinine 0.56 mg/dl Est Creatinine Clear Calc Drug Dose 122.3 ml/min Estimated GFR () 125.1 Estimated GFR (Non- 108.0 BUN/Creatinine Ratio 8.4 Random Glucose 99 mg/dl Calcium Level 8.2 mg/dl Total Bilirubin 5.4 mg/dl Aspartate Amino Transf (AST/SGOT) 148 U/L Alanine Aminotransferase (ALT/SGPT) 30 U/L Alkaline Phosphatase 109 U/L Total Protein 7.1 gm/dl Albumin 1.8 gm/dl Globulin 5.3 gm/dl Albumin/Globulin Ratio 0.3 Assessment & Plan HEPATITIS / RUQ PAIN LFT's about the same as last hospitalization a few weeks ago. No acute findings per CT. Diagnostic paracentesis requested, but not performed due to small volume and overlying epigastric vessels. Consult GI for their input. HISTORY ALCOHOL ABUSE Patient report last consumption was about 4 weeks ago. Monitor for withdrawal symptoms. Continue thiamine, folate, MVI. DIARRHEA Stool neg for C diff. Stool culture negative so far. HYPOKALEMIA Serum K on admission 3.3. Received replacement. K this morning = 3.6. Follow. HISTORY CHF Compensated. HYPERTENSION Continue losartan. ASTHMA Stable. SLEEP APNEA Continue CPAP. RIGHT KNEE PAIN Exam benign. Follow. BIPOLAR DISORDER Continue usual meds. VTE PROPHYLAXIS SQ enoxaparin. Ambulate. DISPOSITION Expected discharge to home. Internal Medicine follow-up with Dr. Crane. Follow-up with [facility]. . Current Inpatient Medications: Current Inpatient Medications Medications (Trade) Dose Ordered Sig/Horacio Route Start Time Stop Time Status Last Admin Dose Admin Enoxaparin Sodium (Lovenox Inj) 40 mg QAM SQ 12/08/16 09:00 01/07/17 08:59 12/08/16 08:18 40 MG Aspirin (Ecotrin Tab) 81 mg DAILY PO 12/08/16 09:00 01/07/17 08:59 12/08/16 08:19 81 MG Salmeterol Xinafoate/ Fluticasone (Advair Diskus 500/50 Inh) 1 puff BID INH 12/07/16 21:00 01/06/17 20:59 12/08/16 21:00 1 PUFF Folic Acid (Folvite Tab) 1 mg DAILY PO 12/08/16 09:00 01/07/17 08:59 12/08/16 08:19 1 MG Losartan Potassium (coZAAR TAB) 25 mg DAILY PO 12/08/16 09:00 01/07/17 08:59 12/08/16 08:19 25 MG Magnesium Oxide (Mag-Ox Tab) 400 mg BID PO 12/07/16 21:00 01/06/17 20:59 12/08/16 21:00 400 MG Montelukast Sodium (Singulair Tab) 10 mg HS PO 12/07/16 21:00 01/06/17 20:59 12/08/16 20:58 10 MG Pantoprazole Sodium (Protonix Tab) 40 mg DAILY PO 12/08/16 09:00 01/07/17 08:59 12/08/16 08:19 40 MG Simethicone (Mylicon Chew Tab) 80 mg BID PRN PO 12/07/16 18:00 01/06/17 17:59 Thiamine HCl (Vitamin B-1 Tab) 100 mg QAM PO 12/08/16 09:00 01/07/17 08:59 12/08/16 08:19 100 MG Lamotrigine (Lamictal Tab) 100 mg DAILY PO 12/08/16 09:00 01/07/17 08:59 12/08/16 08:20 100 MG Lamotrigine (Lamictal Tab) 200 mg HS PO 12/07/16 21:00 01/06/17 20:59 12/08/16 20:59 200 MG Albuterol/ Ipratropium (Duoneb) 3 ml QIDR INH 12/07/16 20:00 01/06/17 19:59 12/08/16 19:25 3 ML Miscellaneous (Iv Fluids Completed) 1 ea PRN PRN N/A 12/07/16 18:30 12/07/17 18:29 Albuterol/ Ipratropium (Duoneb) 3 ml Q2H PRN INH 12/07/16 18:45 01/06/17 18:44 Trazodone HCl (Desyrel Tab) 150 mg HS PO 12/08/16 21:00 01/07/17 20:59 12/08/16 20:59 150 MG Nicotine (Nicoderm Cq 14MG Patch) 1 patch QAM TD 12/08/16 09:00 01/07/17 08:59 12/08/16 08:17 1 PATCH Miscellaneous (Remove Nicoderm Patch) 1 ea HS N/A 12/08/16 21:00 01/07/17 20:59 12/08/16 20:59 1 EA Hydroxyzine HCl (Vistaril Tab) 25 mg Q4 PRN PO 12/08/16 14:15 01/07/17 14:14 Trihexyphenidyl HCl (Trihexyphenidyl HCl Tab) 2.5 mg DAILY PO 12/09/16 09:00 01/08/17 08:59 Lurasidone HCl (Latuda Tab) 20 mg BID PO 12/08/16 21:00 01/07/17 20:59 12/08/16 20:57 20 MG Tramadol HCl (Ultram Tab) 25 mg Q6H PRN PO 12/08/16 20:30 01/07/17 20:29 12/08/16 20:56 25 MG
[2016-12-09 06:11] LABS: HEMATOCRIT 27.7 % (37-47); MEAN CELL VOLUME 106.1 fL (80-100); MEAN CORPUSCULAR HEMOGLOBIN 36.4 pg (25-34); MEAN CORPUSCULAR HGB CONC 34.3 g/dl (32-36); MEAN PLATELET VOLUME 10.1 fL (7.4-10.4); PLATELET COUNT 179 K/uL (130-400); RED BLOOD COUNT 2.61 M/uL (4.2-5.4); WHITE BLOOD COUNT 12.11 K/uL (4.8-10.8)
[2016-12-09 06:53] LABS: BUN/CREATININE RATIO 9.2 (10-20); CALCIUM 7.9 mg/dl (8.5-10.1); CREATININE 0.49 mg/dl (0.60-1.20); POTASSIUM 3.8 mmol/L (3.5-5.1)
[2016-12-09 06:58] LABS: ALB/GLOB RATIO 0.3 (0.9-2)
[2016-12-09 07:01] VITALS: PULSE 88; O2SAT 99
[2016-12-09] MEDS: ALBUT/IPRATROP 3MG/0.5MG NEB 3 ML VIAL INH SCH ×3 (07:01→15:18)
[2016-12-09 07:03] VITALS: BP 107/66; PULSE 88; TEMP 37; O2SAT 98
[2016-12-09] MEDS: FLUTICASONE/SALMETEROL (ADVAIR) 500/50 INH 14 PUFF INH SCH ×2 (08:16→20:42)
[2016-12-09] MEDS: LURASIDONE HCL 40 MG TAB PO SCH ×2 (08:16→20:45)
[2016-12-09] MEDS: TRIHEXYPHENIDYL HCL 5 MG TAB PO SCH (08:17)
[2016-12-09] MEDS: PANTOprazole SOD 40 MG TAB PO SCH ×2 (08:17→20:46)
[2016-12-09] MEDS: THIAMINE HCL 100 MG TAB PO SCH (08:17)
[2016-12-09] MEDS: LOSARTAN POTASSIUM 25 MG TAB PO SCH (08:18)
[2016-12-09] MEDS: ASPIRIN 81 MG ECTAB PO SCH (08:18)
[2016-12-09] MEDS: MAGNESIUM OXIDE 400 MG TAB PO SCH ×2 (08:18→20:46)
[2016-12-09] MEDS: ENOXAPARIN 40 MG/0.4 ML SYR SQ SCH (08:19)
[2016-12-09] MEDS: NICOTINE 14 MG/24 HR TDSY TD SCH (08:19)
[2016-12-09] MEDS ORDERED: DICYCLOMINE HCL 20 MG TAB PO ONE (09:54)
[2016-12-09] MEDS ORDERED: SPIRONOLACTONE 100 MG TAB PO ONE (10:45)
[2016-12-09] MEDS ORDERED: FUROSEMIDE 40 MG TAB PO ONE (10:45)
--- NOTE | 2016-12-09 10:49 | Gastrointestinal Consultation ---
Gastrointestinal Consultation Date of Consultation: Dec 09, 2016 Attending Physician: Ronald Ariza Consulting Physician: Marck Rodriguez Reason for Consultation: Worsening RUQ abd pain; hx of ETOH hepatitis. History of Present Illness Patient is a 51 year old female whom I referred to ED 2 days ago for possible SBP evaluation. She has hx of ETOH hepatitis, cirrhosis, and was c/o s/s of fever up to 100.1, reported increased abd distension, abd pain, diarrhea. Upon evaluation she was noted to have WBC 15, now decreased to 12 w/o antibx. She was noted to have no more BM since admission but stool cx, Cdiff on admission was negative for infections. She had been afebrile. Abd CT showed up to mod amt of ascites but when abd u/s done for attempt diagnostic paracentesis, largest pocket found on RLQ area which cannot be accessed/not attempted to be tapped due to overlying inferior vessels. She is c/o persistent RUQ area abd pain. Denies n/v, or increased pain w eating. Only thing that reliefs it is taking Advil or Tramadol. As noted above, leukocytosis decreasing, stool studies negative, no BM since admission. CT reviewed again - no signs of bowel issues, + CBD 9mm but she is s/p cholecystectomy. Past Medical/Surgical History Medical Problems: (1) SBP (spontaneous bacterial peritonitis) Status: Acute Past Medical History: Past Medical History: Asthma, severity to be determined 10/19/2004 Bipolar depression (HCC) 07/25/2014 Heart failure, etiology unknown (HCC) 11/03/2006 HTN, goal below 140/90 12/10/2004 Migraine without aura, intractable 12/10/2004 Tobacco use disorder Past Surgical History: Past Surgical History: ARTHROPLASTY KNEE TOTAL 02/02/12 right - Dr. De Jesus COLONOSCOPY, DIAGNOSTIC (RECTUM) 09/22/2016 adenomatous polyps, repeat 5 yrs/COLONOSCOPY FLEXIBLE PROXIMAL DIAGNOSTIC performed by Alina Mccain DO at [facility] EGD, FLEXIBLE, DIAGNOSTIC 09/22/2016 ESOPHAGOGASTRODUODENOSCOPY (EGD), FLEXIBLE, TRANSORAL, DIAGNOSTIC performed by Alina Mccain DO at ENDOSCOPY [facility] GALLBLADDER/CHOLECYSTO W/CONTR LIGATE/CUT OVIDUCT(S) AT SURGERY 1989 LUMBAR SPINE FUSION, POSTEROLATERAL 09/12/2013 Dr. Smith Family History Diabetes mellitus SISTER FH: brain cancer FATHER Hodgkin's lymphoma MOTHER Social History Smoking Status: Current Every Day Smoker Alcohol Use: other (former alcoholic) Drug Use: none Marital Status: Housing Status: lives with family Allergies Coded Allergies: [place] (Verified Allergy, Severe, HIVES, 05/11/15) [place] Tar (Unverified Allergy, Mild, 05/11/15) B[place] STING (Verified Allergy, Unknown, HIVES AND SWELLING, 05/11/15) POLLEN (Verified Allergy, Unknown, UNKNOWN, 05/11/15) Current Medications Home Meds and Scripts Medications Dose Route/Sig Max Daily Dose Days Date Category Dose Instructions Folic Acid 1 Mg Tab 1 Mg PO DAILY 12/07/16 Reported Boost (Nutritional Supplements) 1 Liq Liq 1 Can PO TIDM 12/07/16 Reported Nicoderm Cq 14MG Patch (Nicotine) 14 Mg/24 Hr Dis 1 Patch TD DAILY 12/07/16 Reported Lamictal (Lamotrigine) 100 Mg Tab 100 Mg PO DAILY 12/07/16 Reported Atarax (Hydroxyzine Hcl) 25 Mg Tab 25 Mg PO Q4 PRN 12/07/16 Reported Gas-X (Simethicone) 80 Mg Chw 80 Mg PO BID PRN 12/07/16 Reported Magnesium-Oxide (Magnesium Oxide) 400 Mg Tab 400 Mg PO BID 30 11/18/16 Rx Vitamin B-1 (Thiamine HCl) 100 Mg Tab 100 Mg PO QAM 30 11/18/16 Rx Daily-[place] (Multiple Vitamin) 1 Tab Tab 1 Tab PO QAM 30 11/18/16 Rx Imodium (Loperamide Hcl) 2 Mg Cap 2 Mg PO TID PRN 10 11/18/16 Rx Latuda (Lurasidone Hcl) 40 Mg Tab 0.5 Tab PO BID 30 11/16/16 Reported Aspirin Chewable (Aspirin) 81 Mg Chew 81 Mg PO DAILY 11/16/16 Reported Ipratropium Jachin 0.5 Mg/2.5 Ml Nebu 1 Vial NEB Q6H PRN 30 11/16/16 Reported Albuterol Sulfate (Albuterol Sulf) 2.5 Mg/3 Ml Nebu 1 Dose INH Q6 PRN 11/16/16 Reported Trihexyphenidyl Hcl 5 Mg Tab 0.5 Tab PO DAILY 30 11/16/16 Reported [place] Nasal [place] (Saline) 0.65 % Spr 1 [place] KOLE DIRECTED 11/16/16 Reported Lamictal (Lamotrigine) 100 Mg Tab 200 Mg PO HS 05/11/15 Reported Ultram (Tramadol HCl) 50 Mg Tab 50-100 Mg PO Q6H PRN 05/11/15 Reported Trazodone (Trazodone HCl) 50 Mg Tab 150 Mg PO HS 05/11/15 Reported Cozaar (Losartan Potassium) 25 Mg Tab 25 Mg PO DAILY 08/28/13 Reported Advair Diskus 500/50 60 Dose (Fluticasone Prop/Salmeterol) 1 Ea Aerp 1 Puff INH BID 07/03/13 Reported RINSE MOUTH AFTER USE. Combivent Respimat (Ipratropium-Albuterol) 1 Aer Aer 1 Puff INH QID PRN 07/03/13 Reported Singulair (Montelukast Sodium) 10 Mg Tab 10 Mg PO HS 02/02/12 Reported Protonix (Pantoprazole Sodium) 40 Mg Tab 40 Mg PO DAILY 12/26/11 Reported Review of Systems Constitutional: No fever, No chills Respiratory: No cough, No shortness of breath Cardiac: No chest pain, No edema Abdomen: + pain (RUQ), No nausea, No vomiting, No diarrhea Skin: No rash, No itch, No jaundice Physical Exam Date Time Temp Pulse Resp B/P (MAP) Pulse Ox O2 Delivery O2 Flow Rate FiO2 12/09/16 08:00 Room Air 12/09/16 08:00 Room Air 12/09/16 07:03 37.0 88 18 107/66 (80) 98 Room Air 12/09/16 07:01 88 16 99 Room Air 12/09/16 00:30 Room Air 12/08/16 22:17 37.5 89 20 109/64 (79) 94 Room Air 12/08/16 20:00 Room Air 12/08/16 19:25 90 16 96 Room Air 12/08/16 16:09 96 Room Air 12/08/16 15:44 86 16 96 Room Air 12/08/16 15:25 37.1 87 16 100/51 (67) 90 Room Air 12/08/16 11:00 88 16 96 Room Air General Appearance: WD/WN, no apparent distress Eyes: normal inspection, PERRL, EOMI Neck: supple, no JVD, trachea midline Respiratory/Chest: normal breath sounds, no respiratory distress, no accessory muscle use Cardiovascular: regular rate, rhythm, no gallop, no murmur Abdomen: normal bowel sounds, soft, + tenderness (RUQ, epigastric ) Extremities: normal inspection, no pedal edema, no calf tenderness Neurologic/Psych: alert, normal mood/affect, oriented x 3 Skin: normal color, no jaundice, no rash Laboratory Results Last 24 Hours Test 12/09/16 05:22 White Blood Count 12.11 K/uL Red Blood Count 2.61 M/uL Hemoglobin 9.5 g/dL Hematocrit 27.7 % Mean Corpuscular Volume 106.1 fL Mean Corpuscular Hemoglobin 36.4 pg Mean Corpuscular Hemoglobin Concent 34.3 g/dl RDW Standard Deviation 62.5 fL RDW Coefficient of Variation 16.3 % Platelet Count 179 K/uL Mean Platelet Volume 10.1 fL Sodium Level 140 mmol/L Potassium Level 3.8 mmol/L Chloride Level 110 mmol/L Carbon Dioxide Level 25 mmol/L Anion Gap 5.0 mmol/L Blood Urea Nitrogen 5 mg/dl Creatinine 0.49 mg/dl Est Creatinine Clear Calc Drug Dose 139.7 ml/min Estimated GFR () 130.7 Estimated GFR (Non- 112.8 BUN/Creatinine Ratio 9.2 Random Glucose 104 mg/dl Calcium Level 7.9 mg/dl Total Bilirubin 3.8 mg/dl Direct Bilirubin 2.4 mg/dl Aspartate Amino Transf (AST/SGOT) 159 U/L Alanine Aminotransferase (ALT/SGPT) 31 U/L Alkaline Phosphatase 124 U/L Total Protein 6.7 gm/dl Albumin 1.7 gm/dl Globulin 5.0 gm/dl Albumin/Globulin Ratio 0.3 Impression Marcia L Roslyn is a 51 year old female w hx of ETOH cirrhosis, hepatitis, admitted for possible SBP. Had s/s of subjective low grade fever, abd pain, diarrhea. Though on eval, mild amt of ascites not accessible for paracentesis on RLQ area, and leukocytosis decreasing w/o antibx, afebrile. Thus less likely has SBP. Diarrhea had resolved, stool studies negative for infection. She is still c/o RUQ area abd pain and on exam epigastric area is tender as well. Pain not inhibiting her from eating. No n/v. She is s/p cholecystectomy MELD: 16 Maddrey's score <32 - Obtain KUB to r/o constipation - Trial Dicyclomine 20mg BID for abd pain. Increase Protonix to 40mg BID. - Continue low salt diet. Start Lasix 40mg daily, Spironolactone 100mg daily; Monitor electrolytes and renal function. - I had previously discussed in length with pt and her family pathophysiology of ETOH hepatitis/cirrhosis. Recommend strict ETOH abstinence; offered AA or substance abuse counseling referral if pt interested. - Limit APAP to no more than 2g a day if needed. - UTD on EGD/Colonoscopy evals. - Will keep up with HCC screening [id number] in outpt setting. - Will check Hep A and B immunity, recommend vaccination if not immune.-> can do in GI clinic upon DC. Plan ATTESTATION: I have performed a history and physical examination of this patient and reviewed the electronic record. Specifically, on physical examination there is mild epigastric tenderness. I have discussed the case with KIRA Eaton. The above note reflects my findings, conclusions, and recommendations. Marck Rodriguez MD
--- NOTE | 2016-12-09 12:09 | DIAGNOSTIC IMAGING REPORT ---
KUB CLINICAL HISTORY: Abdominal pain and constipation COMPARISON STUDY: No previous studies for comparison. FINDINGS: There is no pathologic bowel dilatation. There is scattered stool within the colon. There are postsurgical changes in the lumbar spine. There is a surgical clip within the right upper quadrant possibly secondary to a prior cholecystectomy. Left upper quadrant calcifications likely represent splenic granulomas. IMPRESSION: Unremarkable bowel gas pattern. Electronically signed by: Jesús Esquivel M.D. 12/09/2016 12:07 PM Dictated Date/Time: 12/09/2016 12:06 PM
[2016-12-09 14:52] VITALS: BP_SYST 101; BP_SYST 82; BP_DIAS 42; BP_DIAS 56; PULSE 83; TEMP 36.8; O2SAT 95
[2016-12-09 16:00] VITALS: O2SAT 95
[2016-12-09] MEDS ORDERED: ALBUT/IPRATROP 3MG/0.5MG NEB 3 ML VIAL INH PRN (18:15)
[2016-12-09 18:26] LABS: O&P GIARDIA AG NOT DETECTED (NOT DETECTED)
[2016-12-09] MEDS ORDERED: ALBUT/IPRATROP 3MG/0.5MG NEB 3 ML VIAL INH SCH (20:00)
--- NOTE | 2016-12-09 20:20 | Progress Note ---
Medicine Progress Note Date & Time of Visit: Dec 09, 2016 at 17:00 . Subjective Feels better. Less abdominal pain No nausea, vomiting, diarrhea, melena, hematochezia. No fever. No cough or SOB. No chest pain. visiting. . Objective Last 8 Hrs Date Time Temp Pulse Resp B/P (MAP) Pulse Ox O2 Delivery O2 Flow Rate FiO2 12/09/16 16:00 95 Room Air 12/09/16 14:52 36.8 83 16 82/42 (55) 95 Room Air 101/56 (71) Physical Exam: General- no distress Eyes- sclerae icteric Lungs- clear Heart- RRR Abdomen- slightly distended, + BS, moderate epigastric + RUQ tenderness Extremities- no pretibial edema or calf tenderness Neuro- alert; mild asterixis . Laboratory Results: Last 24 Hours Test 12/09/16 05:22 12/09/16 11:43 White Blood Count 12.11 K/uL Red Blood Count 2.61 M/uL Hemoglobin 9.5 g/dL Hematocrit 27.7 % Mean Corpuscular Volume 106.1 fL Mean Corpuscular Hemoglobin 36.4 pg Mean Corpuscular Hemoglobin Concent 34.3 g/dl RDW Standard Deviation 62.5 fL RDW Coefficient of Variation 16.3 % Platelet Count 179 K/uL Mean Platelet Volume 10.1 fL Sodium Level 140 mmol/L Potassium Level 3.8 mmol/L Chloride Level 110 mmol/L Carbon Dioxide Level 25 mmol/L Anion Gap 5.0 mmol/L Blood Urea Nitrogen 5 mg/dl Creatinine 0.49 mg/dl Est Creatinine Clear Calc Drug Dose 139.7 ml/min Estimated GFR () 130.7 Estimated GFR (Non- 112.8 BUN/Creatinine Ratio 9.2 Random Glucose 104 mg/dl Calcium Level 7.9 mg/dl Total Bilirubin 3.8 mg/dl Direct Bilirubin 2.4 mg/dl Aspartate Amino Transf (AST/SGOT) 159 U/L Alanine Aminotransferase (ALT/SGPT) 31 U/L Alkaline Phosphatase 124 U/L Total Protein 6.7 gm/dl Albumin 1.7 gm/dl Globulin 5.0 gm/dl Albumin/Globulin Ratio 0.3 Hepatitis B Surface Antibody NEG Assessment & Plan HEPATITIS / RUQ PAIN LFT's about the same as last hospitalization a few weeks ago. No acute findings per CT. Diagnostic paracentesis ordered, but not performed due to small volume and overlying epigastric vessels. GI consulted for their input. Diuretics being adjusted. HISTORY ALCOHOL ABUSE Patient report last consumption was about 4 weeks ago. Monitor for withdrawal symptoms. Continue thiamine, folate, MVI. DIARRHEA Stool neg for C diff. Stool culture negative so far. HYPOKALEMIA Serum K on admission 3.3. Received replacement. K this morning = 3.8. Follow. HISTORY CHF Compensated. HYPERTENSION Continue losartan. ASTHMA Stable. SLEEP APNEA Continue CPAP. RIGHT KNEE PAIN Exam benign. Follow. BIPOLAR DISORDER Continue usual meds. VTE PROPHYLAXIS SQ enoxaparin. Ambulate. DISPOSITION Expected discharge to home. Internal Medicine follow-up with Dr. Crane. Follow-up with Aura BRAVO. . Current Inpatient Medications: Current Inpatient Medications Medications (Trade) Dose Ordered Sig/Horacio Route Start Time Stop Time Status Last Admin Dose Admin Enoxaparin Sodium (Lovenox Inj) 40 mg QAM SQ 12/08/16 09:00 01/07/17 08:59 12/09/16 08:19 40 MG Aspirin (Ecotrin Tab) 81 mg DAILY PO 12/08/16 09:00 01/07/17 08:59 12/09/16 08:18 81 MG Salmeterol Xinafoate/ Fluticasone (Advair Diskus 500/50 Inh) 1 puff BID INH 12/07/16 21:00 01/06/17 20:59 12/09/16 08:16 1 PUFF Folic Acid (Folvite Tab) 1 mg DAILY PO 12/08/16 09:00 01/07/17 08:59 12/09/16 08:16 1 MG Losartan Potassium (coZAAR TAB) 25 mg DAILY PO 12/08/16 09:00 01/07/17 08:59 12/09/16 08:18 25 MG Magnesium Oxide (Mag-Ox Tab) 400 mg BID PO 12/07/16 21:00 01/06/17 20:59 12/09/16 08:18 400 MG Montelukast Sodium (Singulair Tab) 10 mg HS PO 12/07/16 21:00 01/06/17 20:59 12/08/16 20:58 10 MG Simethicone (Mylicon Chew Tab) 80 mg BID PRN PO 12/07/16 18:00 01/06/17 17:59 Thiamine HCl (Vitamin B-1 Tab) 100 mg QAM PO 12/08/16 09:00 01/07/17 08:59 12/09/16 08:17 100 MG Lamotrigine (Lamictal Tab) 100 mg DAILY PO 12/08/16 09:00 01/07/17 08:59 12/09/16 08:19 100 MG Lamotrigine (Lamictal Tab) 200 mg HS PO 12/07/16 21:00 01/06/17 20:59 12/08/16 20:59 200 MG Miscellaneous (Iv Fluids Completed) 1 ea PRN PRN N/A 12/07/16 18:30 12/07/17 18:29 Trazodone HCl (Desyrel Tab) 150 mg HS PO 12/08/16 21:00 01/07/17 20:59 12/08/16 20:59 150 MG Nicotine (Nicoderm Cq 14MG Patch) 1 patch QAM TD 12/08/16 09:00 01/07/17 08:59 12/09/16 08:19 1 PATCH Miscellaneous (Remove Nicoderm Patch) 1 ea HS N/A 12/08/16 21:00 01/07/17 20:59 12/08/16 20:59 1 EA Hydroxyzine HCl (Vistaril Tab) 25 mg Q4 PRN PO 12/08/16 14:15 01/07/17 14:14 Trihexyphenidyl HCl (Trihexyphenidyl HCl Tab) 2.5 mg DAILY PO 12/09/16 09:00 01/08/17 08:59 12/09/16 08:17 2.5 MG Lurasidone HCl (Latuda Tab) 20 mg BID PO 12/08/16 21:00 01/07/17 20:59 12/09/16 08:16 20 MG Tramadol HCl (Ultram Tab) 25 mg Q6H PRN PO 12/08/16 20:30 01/07/17 20:29 12/08/16 20:56 25 MG Pantoprazole Sodium (Protonix Tab) 40 mg BID PO 12/09/16 21:00 01/07/17 08:59 Dicyclomine HCl (Bentyl Tab) 20 mg BID PO 12/09/16 21:00 01/08/17 20:59 Furosemide (Lasix Tab) 40 mg QAM PO 12/10/16 09:00 01/09/17 08:59 Spironolactone (Aldactone Tab) 100 mg QAM PO 12/10/16 09:00 01/09/17 08:59 Albuterol/ Ipratropium (Duoneb) 3 ml QIDR PRN INH 12/09/16 18:15 01/06/17 19:59
[2016-12-09] MEDS: DICYCLOMINE HCL 20 MG TAB PO SCH (20:42)
[2016-12-09] MEDS: TRAZODONE HCL 100 MG TAB PO SCH (20:43)
[2016-12-09] MEDS: MONTELUKAST SOD 10 MG TAB PO SCH (20:47)
[2016-12-09 23:48] VITALS: BP_SYST 100; BP_SYST 102; BP_SYST 117; BP_DIAS 60; BP_DIAS 63; BP_DIAS 64; PULSE 83; PULSE 86; TEMP 37.1; O2SAT 92
[2016-12-10 07:29] LABS: HEMATOCRIT 28.7 % (37-47); MEAN CELL VOLUME 106.3 fL (80-100); MEAN CORPUSCULAR HEMOGLOBIN 36.3 pg (25-34); MEAN CORPUSCULAR HGB CONC 34.1 g/dl (32-36); MEAN PLATELET VOLUME 10.4 fL (7.4-10.4); PLATELET COUNT 195 K/uL (130-400); WHITE BLOOD COUNT 12.58 K/uL (4.8-10.8)
[2016-12-10 07:44] LABS: INR 1.5 (0.9-1.1); PROTHROMBIN TIME (PATIENT) 16.3 SECONDS (9.0-12.0)
[2016-12-10 08:07] LABS: BUN/CREATININE RATIO 12.2 (10-20); CALCIUM 8.1 mg/dl (8.5-10.1); CREATININE 0.46 mg/dl (0.60-1.20); POTASSIUM 3.7 mmol/L (3.5-5.1)
[2016-12-10 08:10] LABS: ALB/GLOB RATIO 0.4 (0.9-2)
[2016-12-10 08:34] VITALS: BP 110/66; PULSE 18; PULSE 79; TEMP 36.9; O2SAT 92
[2016-12-10] MEDS: FLUTICASONE/SALMETEROL (ADVAIR) 500/50 INH 14 PUFF INH SCH ×2 (10:16→20:28)
[2016-12-10] MEDS: SPIRONOLACTONE 100 MG TAB PO SCH (10:16)
[2016-12-10] MEDS: PANTOprazole SOD 40 MG TAB PO SCH ×2 (10:16→20:29)
[2016-12-10] MEDS: THIAMINE HCL 100 MG TAB PO SCH (10:17)
[2016-12-10] MEDS: FUROSEMIDE 40 MG TAB PO SCH (10:17)
[2016-12-10] MEDS: MAGNESIUM OXIDE 400 MG TAB PO SCH ×2 (10:18→20:32)
[2016-12-10] MEDS: DICYCLOMINE HCL 20 MG TAB PO SCH ×2 (10:18→20:30)
[2016-12-10] MEDS: ASPIRIN 81 MG ECTAB PO SCH (10:19)
[2016-12-10] MEDS: LURASIDONE HCL 40 MG TAB PO SCH ×2 (10:19→20:30)
[2016-12-10] MEDS: TRIHEXYPHENIDYL HCL 5 MG TAB PO SCH (10:19)
[2016-12-10] MEDS: LOSARTAN POTASSIUM 25 MG TAB PO SCH (10:20)
[2016-12-10] MEDS: NICOTINE 14 MG/24 HR TDSY TD SCH (10:20)
[2016-12-10] MEDS: ENOXAPARIN 40 MG/0.4 ML SYR SQ SCH (10:21)
[2016-12-10 11:05] VITALS: BP_SYST 112; BP_SYST 114; BP_SYST 115; BP_DIAS 53; BP_DIAS 59; BP_DIAS 69; PULSE 81; TEMP 37; O2SAT 97
[2016-12-10 15:52] VITALS: BP_SYST 102; BP_SYST 106; BP_SYST 107; BP_DIAS 54; BP_DIAS 59; BP_DIAS 64; PULSE 82; TEMP 37; O2SAT 95
[2016-12-10] MEDS: MONTELUKAST SOD 10 MG TAB PO SCH (20:30)
[2016-12-10] MEDS: TRAZODONE HCL 100 MG TAB PO SCH (20:31)
--- NOTE | 2016-12-10 20:47 | Progress Note ---
Medicine Progress Note Date & Time of Visit: Dec 10, 2016 at 09:30 . Subjective Persistent right upper quadrant/epigastric pain, perhaps slightly improved. Intermittent nausea, no emesis. No diarrhea, melena, hematochezia. No fever. No chest pain. No cough or shortness of breath. Voiding without difficulty. . Objective Last 8 Hrs Date Time Temp Pulse Resp B/P (MAP) Pulse Ox O2 Delivery O2 Flow Rate FiO2 12/10/16 20:00 Room Air 12/10/16 16:00 Room Air 12/10/16 15:52 37.0 82 18 107/64 (78) 95 Room Air 106/59 (75) 102/54 (70) Physical Exam: General- no distress Eyes- sclerae icteric Lungs- clear Heart- RRR Abdomen- slightly distended, + BS, mild- moderate epigastric + RUQ tenderness Extremities- no pretibial edema or calf tenderness Neuro- alert . Laboratory Results: Last 24 Hours Test 12/10/16 06:33 White Blood Count 12.58 K/uL Red Blood Count 2.70 M/uL Hemoglobin 9.8 g/dL Hematocrit 28.7 % Mean Corpuscular Volume 106.3 fL Mean Corpuscular Hemoglobin 36.3 pg Mean Corpuscular Hemoglobin Concent 34.1 g/dl RDW Standard Deviation 63.3 fL RDW Coefficient of Variation 16.2 % Platelet Count 195 K/uL Mean Platelet Volume 10.4 fL Prothrombin Time 16.3 SECONDS Prothromb Time International Ratio 1.5 Sodium Level 140 mmol/L Potassium Level 3.7 mmol/L Chloride Level 108 mmol/L Carbon Dioxide Level 26 mmol/L Anion Gap 6.0 mmol/L Blood Urea Nitrogen 6 mg/dl Creatinine 0.46 mg/dl Est Creatinine Clear Calc Drug Dose 148.8 ml/min Estimated GFR () 133.5 Estimated GFR (Non- 115.2 BUN/Creatinine Ratio 12.2 Random Glucose 84 mg/dl Calcium Level 8.1 mg/dl Total Bilirubin 4.0 mg/dl Aspartate Amino Transf (AST/SGOT) 176 U/L Alanine Aminotransferase (ALT/SGPT) 32 U/L Alkaline Phosphatase 130 U/L Total Protein 7.0 gm/dl Albumin 1.9 gm/dl Globulin 5.1 gm/dl Albumin/Globulin Ratio 0.4 Assessment & Plan HEPATITIS / RUQ PAIN LFT's about the same as last hospitalization a few weeks ago. No acute findings per CT. Diagnostic paracentesis ordered, but not performed due to small volume and overlying epigastric vessels. GI consulted for their input. Diuretics being adjusted. LFTs today remain relatively stable with total bilirubin 4.0, AST 176, ALT 32, alkaline phosphatase :30. HISTORY ALCOHOL ABUSE Patient report last consumption was about 4 weeks ago. Monitor for withdrawal symptoms. Continue thiamine, folate, MVI. DIARRHEA Stool neg for C diff. Stool culture negative so far. HYPOKALEMIA Serum K on admission 3.3. Received replacement. K this morning = 3.7. Follow. HISTORY CHF Compensated. HYPERTENSION Continue losartan. ASTHMA Stable. SLEEP APNEA Continue CPAP. RIGHT KNEE PAIN Exam benign. Follow. BIPOLAR DISORDER Continue usual meds. VTE PROPHYLAXIS SQ enoxaparin. Ambulate. DISPOSITION Expected discharge to home. Internal Medicine follow-up with Dr. Crane. Follow-up with Aura BRAVO. . Current Inpatient Medications: Current Inpatient Medications Medications (Trade) Dose Ordered Sig/Horacio Route Start Time Stop Time Status Last Admin Dose Admin Enoxaparin Sodium (Lovenox Inj) 40 mg QAM SQ 12/08/16 09:00 01/07/17 08:59 12/10/16 10:21 40 MG Aspirin (Ecotrin Tab) 81 mg DAILY PO 12/08/16 09:00 01/07/17 08:59 12/10/16 10:19 81 MG Salmeterol Xinafoate/ Fluticasone (Advair Diskus 500/50 Inh) 1 puff BID INH 12/07/16 21:00 01/06/17 20:59 12/10/16 20:28 1 PUFF Folic Acid (Folvite Tab) 1 mg DAILY PO 12/08/16 09:00 01/07/17 08:59 12/10/16 10:20 1 MG Losartan Potassium (coZAAR TAB) 25 mg DAILY PO 12/08/16 09:00 01/07/17 08:59 12/10/16 10:20 25 MG Magnesium Oxide (Mag-Ox Tab) 400 mg BID PO 12/07/16 21:00 01/06/17 20:59 12/10/16 20:32 400 MG Montelukast Sodium (Singulair Tab) 10 mg HS PO 12/07/16 21:00 01/06/17 20:59 12/10/16 20:30 10 MG Simethicone (Mylicon Chew Tab) 80 mg BID PRN PO 12/07/16 18:00 01/06/17 17:59 Thiamine HCl (Vitamin B-1 Tab) 100 mg QAM PO 12/08/16 09:00 01/07/17 08:59 12/10/16 10:17 100 MG Lamotrigine (Lamictal Tab) 100 mg DAILY PO 12/08/16 09:00 01/07/17 08:59 12/10/16 10:17 100 MG Lamotrigine (Lamictal Tab) 200 mg HS PO 12/07/16 21:00 01/06/17 20:59 12/10/16 20:32 200 MG Miscellaneous (Iv Fluids Completed) 1 ea PRN PRN N/A 12/07/16 18:30 12/07/17 18:29 Trazodone HCl (Desyrel Tab) 150 mg HS PO 12/08/16 21:00 01/07/17 20:59 12/10/16 20:31 150 MG Nicotine (Nicoderm Cq 14MG Patch) 1 patch QAM TD 12/08/16 09:00 01/07/17 08:59 12/10/16 10:20 1 PATCH Miscellaneous (Remove Nicoderm Patch) 1 ea HS N/A 12/08/16 21:00 01/07/17 20:59 12/10/16 20:32 1 EA Hydroxyzine HCl (Vistaril Tab) 25 mg Q4 PRN PO 12/08/16 14:15 01/07/17 14:14 Trihexyphenidyl HCl (Trihexyphenidyl HCl Tab) 2.5 mg DAILY PO 12/09/16 09:00 01/08/17 08:59 12/10/16 10:19 2.5 MG Lurasidone HCl (Latuda Tab) 20 mg BID PO 12/08/16 21:00 01/07/17 20:59 12/10/16 20:30 20 MG Tramadol HCl (Ultram Tab) 25 mg Q6H PRN PO 12/08/16 20:30 01/07/17 20:29 12/08/16 20:56 25 MG Pantoprazole Sodium (Protonix Tab) 40 mg BID PO 12/09/16 21:00 01/07/17 08:59 12/10/16 20:29 40 MG Dicyclomine HCl (Bentyl Tab) 20 mg BID PO 12/09/16 21:00 01/08/17 20:59 12/10/16 20:30 20 MG Furosemide (Lasix Tab) 40 mg QAM PO 12/10/16 09:00 01/09/17 08:59 12/10/16 10:17 40 MG Spironolactone (Aldactone Tab) 100 mg QAM PO 12/10/16 09:00 01/09/17 08:59 12/10/16 10:16 100 MG Albuterol/ Ipratropium (Duoneb) 3 ml QIDR PRN INH 12/09/16 18:15 01/06/17 19:59
[2016-12-10] MEDS: OXYMETAZOLINE HCL 0.05% NA SPR 15 ML BTL SCH (21:14)
[2016-12-10 23:56] VITALS: BP 104/57; PULSE 76; TEMP 37.2; O2SAT 94
[2016-12-11 05:57] VITALS: BP_SYST 115; BP_SYST 116; BP_SYST 118; BP_DIAS 65; BP_DIAS 66; BP_DIAS 67
[2016-12-11] MEDS ORDERED: NURSING VERBAL MED ORDER STA (06:40)
[2016-12-11] MEDS ORDERED: ONDANSETRON 4MG OD TAB PO STA (06:42)
[2016-12-11 07:16] LABS: HEMATOCRIT 30.3 % (37-47); MEAN CELL VOLUME 106.7 fL (80-100); MEAN CORPUSCULAR HEMOGLOBIN 36.3 pg (25-34); MEAN PLATELET VOLUME 10.2 fL (7.4-10.4); PLATELET COUNT 210 K/uL (130-400); RED BLOOD COUNT 2.84 M/uL (4.2-5.4); WHITE BLOOD COUNT 13.33 K/uL (4.8-10.8)
[2016-12-11 07:46] VITALS: BP 113/64; PULSE 83; TEMP 37.2; O2SAT 94
[2016-12-11 07:46] LABS: BUN/CREATININE RATIO 8.4 (10-20); CREATININE 0.58 mg/dl (0.60-1.20); POTASSIUM 3.8 mmol/L (3.5-5.1)
[2016-12-11] MEDS: FLUTICASONE/SALMETEROL (ADVAIR) 500/50 INH 14 PUFF INH SCH ×2 (07:57→20:11)
[2016-12-11] MEDS: MAGNESIUM OXIDE 400 MG TAB PO SCH ×2 (07:57→20:10)
[2016-12-11] MEDS: NICOTINE 14 MG/24 HR TDSY TD SCH (08:00)
[2016-12-11] MEDS: SPIRONOLACTONE 100 MG TAB PO SCH (08:00)
[2016-12-11] MEDS: PANTOprazole SOD 40 MG TAB PO SCH ×2 (08:00→20:10)
[2016-12-11] MEDS: FUROSEMIDE 40 MG TAB PO SCH (08:00)
[2016-12-11] MEDS: LOSARTAN POTASSIUM 25 MG TAB PO SCH (08:01)
[2016-12-11] MEDS: LURASIDONE HCL 40 MG TAB PO SCH ×2 (08:01→20:09)
[2016-12-11] MEDS: DICYCLOMINE HCL 20 MG TAB PO SCH ×2 (08:01→20:11)
[2016-12-11] MEDS: TRIHEXYPHENIDYL HCL 5 MG TAB PO SCH (08:02)
[2016-12-11] MEDS: THIAMINE HCL 100 MG TAB PO SCH (08:02)
[2016-12-11] MEDS: ASPIRIN 81 MG ECTAB PO SCH (08:02)
[2016-12-11] MEDS: OXYMETAZOLINE HCL 0.05% NA SPR 15 ML BTL SCH ×2 (08:03→20:10)
[2016-12-11] MEDS: ENOXAPARIN 40 MG/0.4 ML SYR SQ SCH (08:05)
[2016-12-11] MEDS ORDERED: POLYETHYLENE (MIRALAX) 17 GM PACK PO PRN (11:45)
[2016-12-11] MEDS ORDERED: POLYETHYLENE (MIRALAX) 17 GM PACK PO ONE (12:30)
[2016-12-11 14:59] VITALS: BP_SYST 100; BP_SYST 102; BP_SYST 93; BP_DIAS 55; BP_DIAS 57; PULSE 83; PULSE 86; PULSE 90; TEMP 36.8; O2SAT 94
[2016-12-11] MEDS ORDERED: ONDANSETRON INJ 2 MG/ML 2 ML VIAL IV ONE (17:12)
[2016-12-11] MEDS ORDERED: ONDANSETRON 4MG OD TAB PO PRN (17:15)
[2016-12-11] MEDS ORDERED: ONDANSETRON INJ 2 MG/ML 2 ML VIAL IV PRN (17:15)
[2016-12-11] MEDS: MONTELUKAST SOD 10 MG TAB PO SCH (20:12)
[2016-12-11] MEDS: TRAZODONE HCL 100 MG TAB PO SCH (20:12)
[2016-12-11] MEDS: TRAMADOL HCL 50 MG TAB PO PRN (20:17)
--- NOTE | 2016-12-11 20:28 | Progress Note ---
Medicine Progress Note Date & Time of Visit: Dec 11, 2016 at 11:30 . Subjective Complains of mid abdominal discomfort which she attributes to constipation. Some nausea, no emesis. Fever. No chest pain. No urinary symptoms. . Objective Last 8 Hrs Date Time Temp Pulse Resp B/P (MAP) Pulse Ox O2 Delivery O2 Flow Rate FiO2 12/11/16 16:00 Room Air 12/11/16 14:59 36.8 83 17 102/57 (72) 94 Room Air 86 100/55 (70) 90 93/55 (68) Physical Exam: General- no distress Eyes- sclerae icteric Lungs- clear Heart- RRR Abdomen- moderately distended, hepatomegaly with liver edge about 2 fingerbreadths below right costal margin, + BS, soft, moderate right upper quadrant tenderness, mild diffuse abdominal tenderness Extremities- no pretibial edema or calf tenderness Neuro- alert . Laboratory Results: Last 24 Hours Test 12/11/16 06:49 White Blood Count 13.33 K/uL Red Blood Count 2.84 M/uL Hemoglobin 10.3 g/dL Hematocrit 30.3 % Mean Corpuscular Volume 106.7 fL Mean Corpuscular Hemoglobin 36.3 pg Mean Corpuscular Hemoglobin Concent 34.0 g/dl RDW Standard Deviation 60.9 fL RDW Coefficient of Variation 15.8 % Platelet Count 210 K/uL Mean Platelet Volume 10.2 fL Sodium Level 139 mmol/L Potassium Level 3.8 mmol/L Chloride Level 106 mmol/L Carbon Dioxide Level 26 mmol/L Anion Gap 7.0 mmol/L Blood Urea Nitrogen 5 mg/dl Creatinine 0.58 mg/dl Est Creatinine Clear Calc Drug Dose 118.0 ml/min Estimated GFR () 123.7 Estimated GFR (Non- 106.7 BUN/Creatinine Ratio 8.4 Random Glucose 100 mg/dl Calcium Level 8.0 mg/dl Assessment & Plan HEPATITIS / RUQ PAIN LFT's about the same as last hospitalization a few weeks ago. No acute findings per CT. Diagnostic paracentesis ordered, but not performed due to small volume and overlying epigastric vessels. GI consulted for their input. Diuretics being adjusted. LFTs today remain relatively stable. MiraLAX today for constipation. HISTORY ALCOHOL ABUSE Patient report last consumption was about 4 weeks ago. Monitor for withdrawal symptoms. Continue thiamine, folate, MVI. DIARRHEA Stool neg for C diff. Stool culture negative. Giardia antigen negative. HYPOKALEMIA Serum K on admission 3.3. Received replacement. K this morning = 3.8. Follow. LEUKOCYTOSIS WBC 15,200 on admission, 13,000 today. Afebrile. No pulmonary symptoms. UA does not indicate infection. Ascites noted on CT, but paracentesis did not attempted due to small volume and prominent epigastric vessels. Follow. HISTORY CHF Compensated. HYPERTENSION Continue losartan. ASTHMA Stable. SLEEP APNEA Continue CPAP. RIGHT KNEE PAIN Exam benign. Follow. BIPOLAR DISORDER Continue usual meds. VTE PROPHYLAXIS SQ enoxaparin. Ambulate. DISPOSITION Expected discharge to home. Internal Medicine follow-up with Dr. Crane. Follow-up with [facility]. . Consultants: GI . Procedures: CT abdomen + pelvis US abdomen . Current Inpatient Medications: Current Inpatient Medications Medications (Trade) Dose Ordered Sig/Horacio Route Start Time Stop Time Status Last Admin Dose Admin Enoxaparin Sodium (Lovenox Inj) 40 mg QAM SQ 12/08/16 09:00 01/07/17 08:59 12/11/16 08:05 40 MG Aspirin (Ecotrin Tab) 81 mg DAILY PO 12/08/16 09:00 01/07/17 08:59 12/11/16 08:02 81 MG Salmeterol Xinafoate/ Fluticasone (Advair Diskus 500/50 Inh) 1 puff BID INH 12/07/16 21:00 01/06/17 20:59 12/11/16 20:11 1 PUFF Folic Acid (Folvite Tab) 1 mg DAILY PO 12/08/16 09:00 01/07/17 08:59 12/11/16 07:57 1 MG Losartan Potassium (coZAAR TAB) 25 mg DAILY PO 12/08/16 09:00 01/07/17 08:59 12/11/16 08:01 25 MG Magnesium Oxide (Mag-Ox Tab) 400 mg BID PO 12/07/16 21:00 01/06/17 20:59 12/11/16 20:10 400 MG Montelukast Sodium (Singulair Tab) 10 mg HS PO 12/07/16 21:00 01/06/17 20:59 12/11/16 20:12 10 MG Simethicone (Mylicon Chew Tab) 80 mg BID PRN PO 12/07/16 18:00 01/06/17 17:59 Thiamine HCl (Vitamin B-1 Tab) 100 mg QAM PO 12/08/16 09:00 01/07/17 08:59 12/11/16 08:02 100 MG Lamotrigine (Lamictal Tab) 100 mg DAILY PO 12/08/16 09:00 01/07/17 08:59 12/11/16 07:58 100 MG Lamotrigine (Lamictal Tab) 200 mg HS PO 12/07/16 21:00 01/06/17 20:59 12/11/16 20:10 200 MG Miscellaneous (Iv Fluids Completed) 1 ea PRN PRN N/A 12/07/16 18:30 12/07/17 18:29 Trazodone HCl (Desyrel Tab) 150 mg HS PO 12/08/16 21:00 01/07/17 20:59 12/11/16 20:12 150 MG Nicotine (Nicoderm Cq 14MG Patch) 1 patch QAM TD 12/08/16 09:00 01/07/17 08:59 12/11/16 08:00 1 PATCH Miscellaneous (Remove Nicoderm Patch) 1 ea HS N/A 12/08/16 21:00 01/07/17 20:59 12/11/16 20:11 1 EA Hydroxyzine HCl (Vistaril Tab) 25 mg Q4 PRN PO 12/08/16 14:15 01/07/17 14:14 Trihexyphenidyl HCl (Trihexyphenidyl HCl Tab) 2.5 mg DAILY PO 12/09/16 09:00 01/08/17 08:59 12/11/16 08:02 2.5 MG Lurasidone HCl (Latuda Tab) 20 mg BID PO 12/08/16 21:00 01/07/17 20:59 12/11/16 20:09 20 MG Tramadol HCl (Ultram Tab) 25 mg Q6H PRN PO 12/08/16 20:30 01/07/17 20:29 12/11/16 20:17 25 MG Pantoprazole Sodium (Protonix Tab) 40 mg BID PO 12/09/16 21:00 01/07/17 08:59 12/11/16 20:10 40 MG Dicyclomine HCl (Bentyl Tab) 20 mg BID PO 12/09/16 21:00 01/08/17 20:59 12/11/16 20:11 20 MG Furosemide (Lasix Tab) 40 mg QAM PO 12/10/16 09:00 01/09/17 08:59 12/11/16 08:00 40 MG Spironolactone (Aldactone Tab) 100 mg QAM PO 12/10/16 09:00 01/09/17 08:59 12/11/16 08:00 100 MG Albuterol/ Ipratropium (Duoneb) 3 ml QIDR PRN INH 12/09/16 18:15 01/06/17 19:59 Oxymetazoline HCl (Afrin 0.05% Nasal [place]) 4 sprays BID NA 12/10/16 21:00 12/12/16 09:01 12/11/16 20:10 4 SPRAYS Polyethylene (Miralax Powder Packet) 17 gm BID PRN PO 12/11/16 11:45 01/10/17 11:44 Ondansetron HCl (Zofran Inj) 4 mg Q6H PRN IV 12/11/16 17:15 01/10/17 17:14 Ondansetron HCl (Zofran Odt) 4 mg Q6H PRN PO 12/11/16 17:15 01/10/17 17:14 12/11/16 17:49 4 MG
[2016-12-11 23:03] VITALS: BP_SYST 104; BP_SYST 110; BP_SYST 116; BP_DIAS 55; BP_DIAS 57; BP_DIAS 58; PULSE 83; TEMP 36.9; O2SAT 95
[2016-12-12 06:16] LABS: HEMATOCRIT 29.6 % (37-47); MEAN CELL VOLUME 105.7 fL (80-100); MEAN CORPUSCULAR HEMOGLOBIN 36.8 pg (25-34); MEAN CORPUSCULAR HGB CONC 34.8 g/dl (32-36); MEAN PLATELET VOLUME 10.1 fL (7.4-10.4); PLATELET COUNT 202 K/uL (130-400); WHITE BLOOD COUNT 12.13 K/uL (4.8-10.8)
[2016-12-12 06:56] LABS: BUN/CREATININE RATIO 12.6 (10-20); CALCIUM 8.4 mg/dl (8.5-10.1); CREATININE 0.57 mg/dl (0.60-1.20); POTASSIUM 4.2 mmol/L (3.5-5.1)
[2016-12-12 07:12] VITALS: BP 110/68; PULSE 79; TEMP 37; O2SAT 95
[2016-12-12] MEDS: OXYMETAZOLINE HCL 0.05% NA SPR 15 ML BTL SCH (07:20)
[2016-12-12] MEDS: TRAMADOL HCL 50 MG TAB PO PRN (07:20)
[2016-12-12] MEDS: FLUTICASONE/SALMETEROL (ADVAIR) 500/50 INH 14 PUFF INH SCH (07:20)
[2016-12-12] MEDS: NICOTINE 14 MG/24 HR TDSY TD SCH (07:25)
[2016-12-12] MEDS: FUROSEMIDE 40 MG TAB PO SCH (07:27)
[2016-12-12] MEDS: SPIRONOLACTONE 100 MG TAB PO SCH (07:27)
[2016-12-12] MEDS: TRIHEXYPHENIDYL HCL 5 MG TAB PO SCH (07:27)
[2016-12-12] MEDS: PANTOprazole SOD 40 MG TAB PO SCH (07:27)
[2016-12-12] MEDS: ENOXAPARIN 40 MG/0.4 ML SYR SQ SCH (07:27)
[2016-12-12] MEDS: THIAMINE HCL 100 MG TAB PO SCH (07:27)
[2016-12-12] MEDS: MAGNESIUM OXIDE 400 MG TAB PO SCH (07:27)
[2016-12-12] MEDS: ASPIRIN 81 MG ECTAB PO SCH (07:28)
[2016-12-12] MEDS: LOSARTAN POTASSIUM 25 MG TAB PO SCH (07:28)
[2016-12-12] MEDS: DICYCLOMINE HCL 20 MG TAB PO SCH (07:29)
[2016-12-12] MEDS: LURASIDONE HCL 40 MG TAB PO SCH (07:29)
[2016-12-12 08:00] VITALS: O2SAT 95
--- NOTE | 2016-12-12 11:05 | Progress Note ---
Medicine Progress Note Date & Time of Visit: Dec 12, 2016 at 11:05 . Subjective Ongoing RUQ discomfort. Otherwise, doing well. Would like to go home. . Objective Last 8 Hrs Date Time Temp Pulse Resp B/P (MAP) Pulse Ox O2 Delivery O2 Flow Rate FiO2 12/12/16 08:00 95 Room Air 12/12/16 07:12 37.0 79 18 110/68 (82) 95 Room Air 12/12/16 04:00 Room Air Physical Exam: General- no distress Eyes- sclerae icteric Lungs- clear Heart- RRR Abdomen- moderately distended, hepatomegaly with liver edge about 2 fingerbreadths below right costal margin, + BS, soft, mild right upper quadrant tenderness without guarding or rebound Extremities- no pretibial edema or calf tenderness Neuro- alert . Laboratory Results: Last 24 Hours Test 12/12/16 05:42 12/12/16 07:48 White Blood Count 12.13 K/uL Red Blood Count 2.80 M/uL Hemoglobin 10.3 g/dL Hematocrit 29.6 % Mean Corpuscular Volume 105.7 fL Mean Corpuscular Hemoglobin 36.8 pg Mean Corpuscular Hemoglobin Concent 34.8 g/dl RDW Standard Deviation 59.9 fL RDW Coefficient of Variation 15.4 % Platelet Count 202 K/uL Mean Platelet Volume 10.1 fL Sodium Level 138 mmol/L Potassium Level 4.2 mmol/L Chloride Level 106 mmol/L Carbon Dioxide Level 27 mmol/L Anion Gap 5.0 mmol/L Blood Urea Nitrogen 7 mg/dl Creatinine 0.57 mg/dl Est Creatinine Clear Calc Drug Dose 120.1 ml/min Estimated GFR () 124.4 Estimated GFR (Non- 107.3 BUN/Creatinine Ratio 12.6 Random Glucose 95 mg/dl Calcium Level 8.4 mg/dl Bedside Glucose 121 mg/dl Assessment & Plan HEPATITIS / RUQ PAIN LFT's about the same as last hospitalization a few weeks ago. No acute findings per CT. Diagnostic paracentesis ordered, but not performed due to small volume and overlying epigastric vessels. GI consulted for their input. Diuretics adjusted. HISTORY ALCOHOL ABUSE Patient report last consumption was about 4 weeks ago. Monitor for withdrawal symptoms. Continue thiamine, folate, MVI. DIARRHEA Stool neg for C diff. Stool culture negative. Giardia antigen negative. HYPOKALEMIA Serum K on admission 3.3. Received replacement. K this morning = 4.2. Follow. LEUKOCYTOSIS WBC 15,200 on admission, 12,000 today. Afebrile. No pulmonary symptoms. UA did not indicate infection. Ascites noted on CT, but paracentesis did not attempted due to small volume and prominent epigastric vessels. Follow. HISTORY CHF Compensated. HYPERTENSION Continue losartan. ASTHMA Stable. SLEEP APNEA Continue CPAP. RIGHT KNEE PAIN Exam benign. Follow. BIPOLAR DISORDER Continue usual meds. VTE PROPHYLAXIS SQ enoxaparin. Ambulate. DISPOSITION Discharge to home. Internal Medicine follow-up with Dr. Crane. Follow-up with [facility]. . Consultants: GI . Procedures: CT abdomen + pelvis US abdomen . Current Inpatient Medications: Current Inpatient Medications Medications (Trade) Dose Ordered Sig/Horacio Route Start Time Stop Time Status Last Admin Dose Admin Enoxaparin Sodium (Lovenox Inj) 40 mg QAM SQ 12/08/16 09:00 01/07/17 08:59 12/12/16 07:27 40 MG Aspirin (Ecotrin Tab) 81 mg DAILY PO 12/08/16 09:00 01/07/17 08:59 12/12/16 07:28 81 MG Salmeterol Xinafoate/ Fluticasone (Advair Diskus 500/50 Inh) 1 puff BID INH 12/07/16 21:00 01/06/17 20:59 12/12/16 07:20 14 PUFF Folic Acid (Folvite Tab) 1 mg DAILY PO 12/08/16 09:00 01/07/17 08:59 12/12/16 07:29 1 MG Losartan Potassium (coZAAR TAB) 25 mg DAILY PO 12/08/16 09:00 01/07/17 08:59 12/12/16 07:28 25 MG Magnesium Oxide (Mag-Ox Tab) 400 mg BID PO 12/07/16 21:00 01/06/17 20:59 12/12/16 07:27 400 MG Montelukast Sodium (Singulair Tab) 10 mg HS PO 12/07/16 21:00 01/06/17 20:59 12/11/16 20:12 10 MG Simethicone (Mylicon Chew Tab) 80 mg BID PRN PO 12/07/16 18:00 01/06/17 17:59 12/12/16 07:27 80 MG Thiamine HCl (Vitamin B-1 Tab) 100 mg QAM PO 12/08/16 09:00 01/07/17 08:59 12/12/16 07:27 100 MG Lamotrigine (Lamictal Tab) 100 mg DAILY PO 12/08/16 09:00 01/07/17 08:59 12/12/16 07:28 100 MG Lamotrigine (Lamictal Tab) 200 mg HS PO 12/07/16 21:00 01/06/17 20:59 12/11/16 20:10 200 MG Miscellaneous (Iv Fluids Completed) 1 ea PRN PRN N/A 12/07/16 18:30 12/07/17 18:29 Trazodone HCl (Desyrel Tab) 150 mg HS PO 12/08/16 21:00 01/07/17 20:59 12/11/16 20:12 150 MG Nicotine (Nicoderm Cq 14MG Patch) 1 patch QAM TD 12/08/16 09:00 01/07/17 08:59 12/12/16 07:25 1 PATCH Miscellaneous (Remove Nicoderm Patch) 1 ea HS N/A 12/08/16 21:00 01/07/17 20:59 12/11/16 20:11 1 EA Hydroxyzine HCl (Vistaril Tab) 25 mg Q4 PRN PO 12/08/16 14:15 01/07/17 14:14 Trihexyphenidyl HCl (Trihexyphenidyl HCl Tab) 2.5 mg DAILY PO 12/09/16 09:00 01/08/17 08:59 12/12/16 07:27 2.5 MG Lurasidone HCl (Latuda Tab) 20 mg BID PO 12/08/16 21:00 01/07/17 20:59 12/12/16 07:29 20 MG Tramadol HCl (Ultram Tab) 25 mg Q6H PRN PO 12/08/16 20:30 01/07/17 20:29 12/12/16 07:20 25 MG Pantoprazole Sodium (Protonix Tab) 40 mg BID PO 12/09/16 21:00 01/07/17 08:59 12/12/16 07:27 40 MG Dicyclomine HCl (Bentyl Tab) 20 mg BID PO 12/09/16 21:00 01/08/17 20:59 12/12/16 07:29 20 MG Furosemide (Lasix Tab) 40 mg QAM PO 12/10/16 09:00 01/09/17 08:59 12/12/16 07:27 40 MG Spironolactone (Aldactone Tab) 100 mg QAM PO 12/10/16 09:00 01/09/17 08:59 12/12/16 07:27 100 MG Albuterol/ Ipratropium (Duoneb) 3 ml QIDR PRN INH 12/09/16 18:15 01/06/17 19:59 Polyethylene (Miralax Powder Packet) 17 gm BID PRN PO 12/11/16 11:45 01/10/17 11:44 12/12/16 07:26 17 GM Ondansetron HCl (Zofran Inj) 4 mg Q6H PRN IV 12/11/16 17:15 01/10/17 17:14 Ondansetron HCl (Zofran Odt) 4 mg Q6H PRN PO 12/11/16 17:15 01/10/17 17:14 12/11/16 17:49 4 MG
[2016-12-12] MEDS ORDERED: BNT20 PO (11:17)
[2016-12-12] MEDS ORDERED: LSX40 PO (11:17)
[2016-12-12] MEDS ORDERED: PRT40 PO (11:17)
[2016-12-12] MEDS ORDERED: SPRN100 PO (11:17)
[2016-12-12] MEDS ORDERED: LACT10SO30 PO (11:17)
[2016-12-12] MEDS ORDERED: ACET-1222 PO (11:19)
--- NOTE | 2016-12-12 11:26 | Discharge Instructions ---
Discharge Instructions Date of Service Dec 12, 2016. Admission Reason for Admission: abdominal pain . Discharge Discharge Diagnosis / Problem: abdominal pain, cirrhosis of liver Discharge Goals Goal(s): Decrease discomfort, Improve disease control Activity Recommendations Activity Limitations: resume your previous activity . Instructions / Follow-Up Instructions / Follow-Up FOLLOW-UP APPOINTMENTS: INTERNAL MEDICINE 12/20/2016 3:00 PM Rangel Crane DO GASTROENTEROLOGY 01/04/2017 8:30 AM KIRA Alegria MEDICATION CHANGES: Diuretics to control fluid: furosemide (Lasix) 40 mg daily spironolactone (Aldactone) 100 mg daily pantoprazole (Protonix) 40 mg twice a day - controls stomach acid dicyclomine (Bentyl) 20 mg twice a day - helps control stomach cramps lactulose (Cephalac or Chronulac) - treats diarrhea and may help with shaking of your hands acetaminophen (Tylenol) 500 mg pills May take 1 or 2 pills once or twice a day for pain. Never take more than 4 pills / day. OTHER INSTRUCTIONS: Seek medical attention if you have: * temperature above 101 * abdominal pain, nausea, vomiting * diarrhea, dark stools or bloody stools * any unanswered questions or concerns Call 911 if symptoms are severe. Call if you have any questions or problems. My cell # is [phone]. You can also reach a [facility] hospitalist on duty at [facility] 24 hours a day by calling [phone]. Please take good care of yourself. Ronald Ariza . Current Hospital Diet Patient's current hospital diet: Low Sodium Diet (2gm Na) Discharge Diet Recommended Diet: AHA Diet (Heart Healthy), Low Sodium Diet (2gm Na) Fluid Restriction: 1500 ml (6 cups) Procedures Procedures Performed: CT scan of abdomen ultrasound of abdomen Pending Studies Studies pending at discharge: no Medical Emergencies . Who to Call and When: Medical Emergencies: If at any time you feel your situation is an emergency, please call 911 immediately. . Non-Emergent Contact Non-Emergency issues call your: Primary Care Provider, Pole Setter, Hospital Doctor . . "Provider Documentation" section prepared by Ronald Ariza. . VTE Core Measure Inpt VTE Proph given/why not?: Enoxaparin (Lovenox)SQ
[2016-12-12 11:33] VITALS: BP 110/68; PULSE 79; TEMP 37; O2SAT 95
--- NOTE | 2016-12-13 05:13 | Discharge Summary ---
Discharge Summary Date of Service Dec 13, 2016. Discharge Summary Admission Date: Dec 07, 2016 at 17:43 Discharge Date: Dec 12, 2016 Discharge Disposition: Home Principal Diagnosis: abdominal pain alcoholic hepatitis . Secondary Diagnoses/Problems: Chronic and Resolved Medical Problems: (1) Anxiety Status: Chronic (2) Asthma Status: Chronic (3) Bipolar 1 disorder Status: Chronic (4) CHF (congestive heart failure) Status: Chronic (5) H/O alcohol abuse Status: Chronic (6) HTN, goal below 140/90 Status: Chronic (7) Hx of migraines Status: Chronic (8) Sleep apnea Status: Chronic (9) Tobacco use disorder Status: Chronic Surgical Problems: (1) S/P cholecystectomy Status: Resolved (2) S/P knee replacement Status: Resolved (3) S/P tubal ligation Status: Resolved . Procedures: CT abdomen + pelvis US abdomen . Consultations: GI . Pending Studies/Follow-Up: Please check basic metabolic profile in clinic. . Medication Reconciliation New Medications: Acetaminophen (Acetaminophen Extra Stren) 500 Mg Tab 0 PO UD, #30 TAB May use Tylenol for pain as long as you don't use too much. Extra Strength Tylenol pills are 500 mg. You may take 1 or 2 pills once or twice a day for pain. Do not take more than 4 pills a day. Lactulose (Encephalopathy) (Lactulose) 10 Gm/15 Ml Eloise 15 ML PO BID, #900 ML 5 Refills Dicyclomine HCl (Dicyclomine HCl) 20 Mg Tab 20 MG PO BID, #60 TAB 5 Refills Furosemide (Furosemide) 40 Mg Tab 40 MG PO QAM, #30 TAB 5 Refills Pantoprazole (Pantoprazole Sodium) 40 Mg Tab 40 MG PO BID, #60 TAB 5 Refills Spironolactone (Spironolactone) 100 Mg Tab 100 MG PO QAM, #30 TAB 5 Refills Continued Medications: Albuterol Sulf (Albuterol Sulfate) 2.5 Mg/3 Ml Nebu 1 DOSE INH Q6 PRN for Wheezing Aspirin (Aspirin Chewable) 81 Mg Chew 81 MG PO DAILY Fluticasone Prop/Salmeterol (Advair Diskus 500/50 60 Dose) 1 Ea Aerp 1 PUFF INH BID, INHALER RINSE MOUTH AFTER USE. Folic Acid (Folic Acid) 1 Mg Tab 1 MG PO DAILY Hydroxyzine Hcl (Atarax) 25 Mg Tab 25 MG PO Q4 PRN for Anxiety, TAB Ipratropium Corona (Ipratropium Corona) 0.5 Mg/2.5 Ml Nebu 1 VIAL NEB Q6H PRN for Wheezing for 30 Days, #300 ML 5 Refills Ipratropium-Albuterol (Combivent Respimat) 1 Aer Aer 1 PUFF INH QID PRN for SOB/Wheezing, INH Lamotrigine (Lamictal) 100 Mg Tab 200 MG PO HS, TAB Lamotrigine (Lamictal) 100 Mg Tab 100 MG PO DAILY, TAB Loperamide Hcl (Imodium) 2 Mg Cap 2 MG PO TID PRN for Diarrhea for 10 Days, #30 CAP Losartan Potassium (Cozaar) 25 Mg Tab 25 MG PO DAILY, TAB Lurasidone Hcl (Latuda) 40 Mg Tab 0.5 TAB PO BID for 30 Days, #30 TAB 1 Refill Magnesium Oxide (Magnesium-Oxide) 400 Mg Tab 400 MG PO BID for 30 Days, #60 TAB Montelukast Sodium (Singulair) 10 Mg Tab 10 MG PO HS, TAB Multiple Vitamin (Daily-Malinda) 1 Tab Tab 1 TAB PO QAM for 30 Days, #30 TAB Nicotine (Nicoderm Cq 14MG Patch) 14 Mg/24 Hr Dis 1 PATCH TD DAILY, PATCH Nutritional Supplements (Boost) 1 Liq Liq 1 CAN PO TIDM Pantoprazole Sodium (Protonix) 40 Mg Tab 40 MG PO DAILY, TAB Saline (Pleak Nasal [place]) 0.65 % Spr 1 SPRAY KOLE DIRECTED Simethicone (Gas-X) 80 Mg Chw 80 MG PO BID PRN for gas Thiamine HCl (Vitamin B-1) 100 Mg Tab 100 MG PO QAM for 30 Days, #30 TAB Tramadol (Ultram) 50 Mg Tab 50 MG PO Q6H PRN for severe pain, TAB Trazodone Hcl (Trazodone) 50 Mg Tab 150 MG PO HS, TAB Trihexyphenidyl Hcl (Trihexyphenidyl Hcl) 5 Mg Tab 0.5 TAB PO DAILY for 30 Days, #15 TAB 1 Refill Admission Information HPI (per Admitting provider): This is a 51 y/o female with PMH of fatty liver disease, possible alcohol related, chronic diastolic CHF, asthma, bipolar disorder, HTN, and other problems listed below who presents to the ED with abdominal bloating. Patient was recently admitted from November 16-2016 for electrolyte abnormalities and elevated LFT's seen on outpatient labs. During admission liver US suggested hepatic steatosis vs. hepatitis; no bile duct obstruction. She was seen by GI who considered alcohol the most likely cause of her liver disease. Per GI note, past testing included NA, AMA, ASMA, tissue transglutaminase, hepatitis AB and C testing were all negative. Had prior EGD and colo on 09/22/[address] Mccain were normal except for two 2-9 mm polyps in ascending colon. She was planned to have hemochromatosis HFE testing. Pt states since discharge on November 18 she has gradually increasing abdominal bloating which increased in severity over past few days. She reports associated low grade fever (Tmax 100.1 yesterday), chills, diffuse abdominal pain which worsens with deep inspiration. Has mild nausea when she eats. Has diarrhea x 2 days. Denies bloody or tarry stools. She admits to jaundice and easy bruising/ bleeding, but no active bleeding. No chest pain, SOB, itching. Patient called [facility] yesterday for her symptoms and today Breanna Pang told her to present to the ER to rule out SBP. . Physical Exam (per Admitting): General Appearance: WD/WN, no apparent distress, + pertinent finding ( and father at bedside) Head: normocephalic, atraumatic Eyes: PERRL, + pertinent finding (scleral icterus) ENT: hearing grossly normal, pharynx normal Neck: supple, trachea midline Respiratory/Chest: lungs clear, normal breath sounds, no respiratory distress, no accessory muscle use Cardiovascular: regular rate, rhythm, no murmur Abdomen/GI: normal bowel sounds, soft, + pertinent finding (mildly distended. mild RUQ tenderness) Extremities/Musculoskelatal: no calf tenderness, no pedal edema Neurologic/Psych: alert, normal mood/affect, oriented x 3 Skin: normal color, warm/dry Hospital Course HEPATITIS / RUQ PAIN LFT's about the same as last hospitalization a few weeks ago. No acute findings per CT. Diagnostic paracentesis ordered, but not performed due to small volume and overlying epigastric vessels. GI consulted for their input. Diuretics adjusted. HISTORY ALCOHOL ABUSE Patient report last consumption was about 4 weeks ago. Monitor for withdrawal symptoms. Continue thiamine, folate, MVI. DIARRHEA Stool neg for C diff. Stool culture negative. Giardia antigen negative. HYPOKALEMIA Serum K on admission 3.3. Received replacement. K day of discharge= 4.2. Started on diuretic therapy with furosemide and spironolactone Follow. LEUKOCYTOSIS WBC 15,200 on admission, 12,000 day of discharge. Afebrile. No pulmonary symptoms. UA did not indicate infection. Ascites noted on CT, but paracentesis did not attempted due to small volume and prominent epigastric vessels. Follow. HISTORY CHF Compensated. HYPERTENSION Continue losartan. ASTHMA Stable. SLEEP APNEA Continue CPAP. RIGHT KNEE PAIN Exam benign. Follow. BIPOLAR DISORDER Continue usual meds. VTE PROPHYLAXIS SQ enoxaparin. Ambulate. DISPOSITION Discharge to home. Internal Medicine follow-up with Dr. Crane. Follow-up with [facility] . Total time spent on discharge = 40 min. This includes examination of the patient, discharge planning, medication reconciliation, and communication with other providers. . Discharge Instructions Date of Service Dec 12, 2016. Admission Reason for Admission: abdominal pain . Discharge Discharge Diagnosis / Problem: abdominal pain, cirrhosis of liver Discharge Goals Goal(s): Decrease discomfort, Improve disease control Activity Recommendations Activity Limitations: resume your previous activity . Instructions / Follow-Up Instructions / Follow-Up FOLLOW-UP APPOINTMENTS: INTERNAL MEDICINE 12/20/2016 3:00 PM Rangel Crane DO GASTROENTEROLOGY 01/04/2017 8:30 AM KIRA Alegria MEDICATION CHANGES: Diuretics to control fluid: furosemide (Lasix) 40 mg daily spironolactone (Aldactone) 100 mg daily pantoprazole (Protonix) 40 mg twice a day - controls stomach acid dicyclomine (Bentyl) 20 mg twice a day - helps control stomach cramps lactulose (Cephalac or Chronulac) - treats diarrhea and may help with shaking of your hands acetaminophen (Tylenol) 500 mg pills May take 1 or 2 pills once or twice a day for pain. Never take more than 4 pills / day. OTHER INSTRUCTIONS: Seek medical attention if you have: * temperature above 101 * abdominal pain, nausea, vomiting * diarrhea, dark stools or bloody stools * any unanswered questions or concerns Call 911 if symptoms are severe. Call if you have any questions or problems. My cell # is [phone]. You can also reach a [facility] hospitalist on duty at [facility] 24 hours a day by calling [phone]. Please take good care of yourself. Ronald Ariza . Current Hospital Diet Patient's current hospital diet: Low Sodium Diet (2gm Na) Discharge Diet Recommended Diet: AHA Diet (Heart Healthy), Low Sodium Diet (2gm Na) Fluid Restriction: 1500 ml (6 cups) Procedures Procedures Performed: CT scan of abdomen ultrasound of abdomen Pending Studies Studies pending at discharge: no Medical Emergencies . Who to Call and When: Medical Emergencies: If at any time you feel your situation is an emergency, please call 911 immediately. . Non-Emergent Contact Non-Emergency issues call your: Primary Care Provider, Fish Worm Grower, Hospital Doctor . . "Provider Documentation" section prepared by Ronald Ariza. . VTE Core Measure Inpt VTE Proph given/why not?: Enoxaparin (Lovenox)SQ Additional Copies To Rangel Crane D.O.; Breanna Pang CRNP
== END 2016-12-12 11:55 | disposition home or self-care (01) ==
LOC: C.EDB 11:04 → ENRESERV 17:27 → EDBEDREQ 17:33 → C.MS2W 17:43
PROVIDERS: ADMIT Hospitalist; ATTEND Hospitalist
DX: R10.11 Right upper quadrant pain (principal); R14.0 Abdominal distension (gaseous); K70.10 Alcoholic hepatitis without ascites; F41.9 Anxiety disorder, unspecified; I10 Essential (primary) hypertension; F31.9 Bipolar disorder, unspecified; F17.200 Nicotine dependence, unspecified, uncomplicated; Z79.899 Other long term (current) drug therapy; R19.7 Diarrhea, unspecified

== ENCOUNTER 2017-02-15 20:37 | Emergency (ER) | payer OTHER ==
[~2017-02-15] VITALS: Ht 165.1 cm; Wt 82.1 kg
[~2017-02-15 20:37] MED LIST changes: +ACET-1222 PO; -ATR25 PO; +BNT20 PO; -Enteral Nutrition Formula PO; +HYDR-3124 PO; +LACT10SO30 PO; +LAMO100T16 PO; -LAMO1TAB21 PO; +LSX40 PO; +NUTR-7 PO; +PRT40 PO; +SIME80CH PO; +SPRN100 PO; -[UNRECOGNIZED DRUG - SUPPLY] INH
[2017-02-15 20:44] VITALS: TEMP 37.4; Ht 165.1 cm; Wt 82.1 kg
--- NOTE | 2017-02-15 21:08 | EMERGENCY ROOM VISIT NOTE ---
History Report prepared by Sally: Claudia Gonzales Under the Supervision of: Dr. Marck Waller D.O. First contact with patient: 20:49 Chief Complaint: EDEMA TO EXTREMITY Stated Complaint: ANKLE SWOLLEN,SORE STOMACH SWOLLEN History of Present Illness The patient is a 51 year old female who presents to the Emergency Room with complaints of persistent left ankle swelling starting 5 days ago. She also reports swelling to the abdomen. She has a history of cirrhosis. She might have twisted her ankle. She has some calf pain and cough. She has a fever of 100.3. She has some SOB which started several days ago. She denies any history of blood clots. She does spend time outside, but does not think she has any tick bites. She has a history of hypertension. Source of History: patient, family Onset: 5 days ago Position: ankle (left) Quality: other (swelling) Timing: other (persistent) Associated Symptoms: + fevers, + cough, + SOB Review of Systems See HPI for pertinent positives & negatives. A total of 10 systems reviewed and were otherwise negative. Past Medical & Surgical Medical Problems: (1) Anxiety (2) Asthma (3) Bipolar 1 disorder (4) CHF (congestive heart failure) (5) H/O alcohol abuse (6) HTN, goal below 140/90 (7) Hx of migraines (8) Increased abdominal girth (9) Sleep apnea (10) Tobacco use disorder Surgical Problems: (1) S/P cholecystectomy (2) S/P knee replacement (3) S/P tubal ligation Family History Diabetes mellitus SISTER FH: brain cancer FATHER Hodgkin's lymphoma MOTHER Social History Smoking Status: Never Smoker Alcohol Use: other Drug Use: none Marital Status: Housing Status: lives with family Current/Historical Medications Scheduled Dicyclomine Hcl (Bentyl), 20 MG PO BID Fluticasone Prop/Salmeterol (Advair Diskus 500/50 60 Dose), 1 PUFF INH BID Fluticasone Propionate (Nasal) (Flonase Allergy Relief), 2 SPRY KOLE DAILY Folic Acid (Folic Acid), 1 MG PO DAILY Furosemide (Lasix), 40 MG PO BID Hydroxyzine Hcl (Atarax), 25 MG PO NOON Ipratropium [place] (Atrovent 0.02% Soln), 1 VIAL INH Q6-8HRS Lactulose (Chronulac), 45 ML PO DAILY Lamotrigine (Lamictal), 200 MG PO HS Lamotrigine (Lamictal), 100 MG PO DAILY Losartan Potassium (Cozaar), 25 MG PO DAILY Lurasidone Hcl (Latuda), 20 MG PO BID Magnesium Oxide (Mag-Ox), 400 MG PO BID Mometasone Furoate (Asmanex Twisthaler 60 Met), 2 PUFF INH BID17 Montelukast Sodium (Singulair), 10 MG PO HS Nicotine (Nicotine Step 3), 1 PATCH TOP DAILY Nutritional Supplements (Boost), 1 CAN PO TIDM Pantoprazole (Protonix), 40 MG PO BID Polyethylene Glycol 3350 (Miralax), 17 GM PO DAILY Potassium Chloride (Micro-K Ext Rel), 10 MEQ PO DAILY Spironolactone (Aldactone), 100 MG PO QAM Thiamine Hcl (Vitamin B-1), 100 MG PO DAILY Trazodone Hcl (Trazodone), 150 MG PO HS Trihexyphenidyl Hcl (Trihexyphenidyl Hcl), 0.5 TAB PO DAILY Scheduled PRN Acetaminophen (Tylenol), 1-2 TABS PO BID PRN for Pain Ondansetron Hcl (Zofran), 4 MG PO Q8 PRN for Nausea Saline ([place] Nasal [place]), 1 SPRAY KOLE for PRN Tramadol (Ultram), 50 MG PO Q6H PRN for severe pain Triamcinolone Acet (Triamcinolone Acetonide), 1 APPLN TOP BID PRN for Allergies Coded Allergies: [place] (Verified Allergy, Severe, HIVES, 05/11/15) [place] Tar (Unverified Allergy, Mild, 05/11/15) BEE STING (Verified Allergy, Unknown, HIVES AND SWELLING, 05/11/15) POLLEN (Verified Allergy, Unknown, UNKNOWN, 05/11/15) Physical Exam Vital Signs Date Time Temp Pulse Resp B/P (MAP) Pulse Ox O2 Delivery O2 Flow Rate FiO2 02/15/17 23:30 90/42 02/15/17 23:27 75 12 94 02/15/17 23:12 74 13 95 02/15/17 23:01 95/54 02/15/17 22:57 76 13 98 02/15/17 21:57 77 19 97 02/15/17 21:42 78 20 02/15/17 21:37 78 15 98 02/15/17 21:30 108/49 02/15/17 21:22 80 17 100 02/15/17 21:07 80 20 96 Room Air 02/15/17 21:01 78 02/15/17 21:00 89/54 02/15/17 20:44 37.4 81 18 101/60 98 Room Air Physical Exam GENERAL: Patient is awake, alert, and in no acute distress. Patient is resting comfortably and showing no signs of anxiety EYES: The conjunctivae are clear. The pupils are round and reactive. EARS, NOSE, MOUTH AND THROAT: The nose is without any evidence of any deformity. Mucous membranes are moist tongue is midline NECK: The neck is nontender and supple. RESPIRATORY: Normal respiratory effort is noted there is no evidence of wheezing rhonchi or rales CARDIOVASCULAR: Regular rate and rhythm noted there no murmurs rubs or gallops normal S1 normal S2 GASTROINTESTINAL: The abdomen is soft. Bowel sounds are present in all quadrants. Abdomen is nontender MUSCULOSKELETAL/EXTREMITIES: Swelling in the left ankle. No erythema or warmth to the joint. ROM appeared intact. SKIN: Pedal edema left greater than right. Pulse symmetric. Skin is warm and dry. NEUROLOGIC: Patient is awake alert and oriented x3 strength is symmetric patellar reflexes are 2+ bilaterally Medical Decision & Procedures ER Provider Diagnostic Interpretation: X-ray results as stated below per interpretation by me and the radiologist. Radiology results as stated below per my review and radiologist interpretation: SINGLE VIEW CHEST CLINICAL HISTORY: Dyspnea. Lower extremity edema. FINDINGS: An AP, portable, upright chest radiograph is compared to study dated 11/18/2016 and correlated with chest CT dated 05/28/2011. The heart is enlarged and there is atherosclerotic calcification of the thoracic aorta. There is pulmonary vascular congestion. There are calcified mediastinal lymph nodes. Mild chronic elevation of the right hemidiaphragm is similar to previous. No airspace consolidation, large pleural effusion, or pneumothorax is seen. The skeletal structures are osteopenic. The bony thorax is grossly intact. IMPRESSION: 1. Cardiomegaly with evidence of mild congestive failure. 2. No airspace consolidation or large pleural effusion is seen. Electronically signed by: Dallas Charles M.D. 02/15/2017 9:54 PM Dictated Date/Time: 02/15/2017 9:53 PM LEFT ANKLE 3 VIEWS CLINICAL HISTORY: Left leg swelling. FINDINGS: 3 views of the left ankle are obtained. No prior studies are available for comparison at the time of dictation. The skeletal structures are well mineralized for age. No fracture is seen. The ankle mortise is intact. There is a large plantar calcaneal enthesophyte. No joint effusion is identified. Soft tissue edema is present around the ankle and in the calf. IMPRESSION: Soft tissue swelling with no radiographic evidence of left ankle fracture. Electronically signed by: Dallas Charles M.D. 02/15/2017 9:37 PM Dictated Date/Time: 02/15/2017 9:36 PM ULTRASOUND LEFT LOWER EXTREMITY VENOUS CLINICAL HISTORY: Left leg swelling. COMPARISON STUDY: No priors. TECHNIQUE: Real-time, grayscale, and color Doppler sonography of the deep veins of the left lower extremity was performed from the inguinal crease to the calf. Compression and augmentation were utilized. FINDINGS: There is no sonographic evidence of deep venous thrombosis identified in the left lower extremity. The common femoral, superficial femoral, and popliteal veins are patent and normally compressible. The greater saphenous vein and the profunda femoris vein at the junction with the common femoral vein are clear. The visualized calf veins are patent. IMPRESSION: There is no sonographic evidence of deep venous thrombosis identified in the left lower extremity. Electronically signed by: Dallas Charles M.D. 02/15/2017 10:34 PM Dictated Date/Time: 02/15/2017 10:34 PM Laboratory Results 02/15/17 21:30 Red Blood Count 2.54, Mean Corpuscular Volume 98.4, Mean Corpuscular Hemoglobin 33.9, Mean Corpuscular Hemoglobin Concent 34.4, Mean Platelet Volume 8.8, Neutrophils (%) (Auto) 51.6, Lymphocytes (%) (Auto) 34.9, Monocytes (%) (Auto) 8.7, Eosinophils (%) (Auto) 4.1, Basophils (%) (Auto) 0.5, Neutrophils # (Auto) 3.37, Lymphocytes # (Auto) 2.28, Monocytes # (Auto) 0.57, Eosinophils # (Auto) 0.27, Basophils # (Auto) 0.03 02/15/17 21:30 Test 02/15/17 21:30 White Blood Count 6.53 K/uL (4.8-10.8) Red Blood Count 2.54 M/uL (4.2-5.4) Hemoglobin 8.6 g/dL (12.0-16.0) Hematocrit 25.0 % (37-47) Mean Corpuscular Volume 98.4 fL (80-100) Mean Corpuscular Hemoglobin 33.9 pg (25-34) Mean Corpuscular Hemoglobin Concent 34.4 g/dl (32-36) Platelet Count 154 K/uL (130-400) Mean Platelet Volume 8.8 fL (7.4-10.4) Neutrophils (%) (Auto) 51.6 % Lymphocytes (%) (Auto) 34.9 % Monocytes (%) (Auto) 8.7 % Eosinophils (%) (Auto) 4.1 % Basophils (%) (Auto) 0.5 % Neutrophils # (Auto) 3.37 K/uL (1.4-6.5) Lymphocytes # (Auto) 2.28 K/uL (1.2-3.4) Monocytes # (Auto) 0.57 K/uL (0.11-0.59) Eosinophils # (Auto) 0.27 K/uL (0-0.5) Basophils # (Auto) 0.03 K/uL (0-0.2) RDW Standard Deviation 56.8 fL (36.4-46.3) RDW Coefficient of Variation 15.8 % (11.5-14.5) Immature Granulocyte % (Auto) 0.2 % Immature Granulocyte # (Auto) 0.01 K/uL (0.00-0.02) Red Blood Cell Morphology Unremarkable Prothrombin Time 13.4 SECONDS (9.0-12.0) Prothromb Time International Ratio 1.2 (0.9-1.1) Activated Partial Thromboplast Time 31.5 SECONDS (21.0-31.0) Partial Thromboplastin Ratio 1.2 Anion Gap 6.0 mmol/L (3-11) Est Creatinine Clear Calc Drug Dose 83.9 ml/min Estimated GFR () 93.3 Estimated GFR (Non- 80.5 BUN/Creatinine Ratio 5.0 (10-20) Uric Acid 5.4 mg/dl (2.6-7.2) Calcium Level 8.6 mg/dl (8.5-10.1) Total Bilirubin 2.1 mg/dl (0.2-1) Aspartate Amino Transf (AST/SGOT) 41 U/L (15-37) Alanine Aminotransferase (ALT/SGPT) 20 U/L (12-78) Alkaline Phosphatase 97 U/L (45-117) Troponin I < 0.015 ng/ml (0-0.045) Total Protein 7.6 gm/dl (6.4-8.2) Albumin 2.9 gm/dl (3.4-5.0) Globulin 4.7 gm/dl (2.5-4.0) Albumin/Globulin Ratio 0.6 (0.9-2) Lyme Disease IgG Antibody NEG (NEG) Lyme Disease IgM Antibody NEG (NEG) Laboratory results per my review. Medications Administered Medications (Trade) Dose Ordered Sig/Horacio Route Start Time Stop Time Status Last Admin Dose Admin Oxycodone HCl (Roxicodone Immediate Rel 5MG Home Pack) 1 homepack UD ONCE PO 02/15/17 23:45 02/15/17 23:46 DC 02/15/17 23:51 1 HOMEPACK ECG Indication: SOB/dyspnea Rate (beats per minute): 76 Rhythm: normal sinus Findings: no ectopy, other (no acute ST segment abnormality) Comparison ECG Date: 05-Jul-2013 Change: no significant change ED Course 2053: The patient was evaluated in room B6. A complete history and physical examination were performed. 0: Upon reevaluation, the patient is resting comfortably. I discussed the results and treatment plan with her. She verbalized agreement of the treatment plan. She was discharged home. 5: Oxycodone HCl 1 homepack PO. Medical Decision Prior records reviewed and summarized above. Triage Nursing notes reviewed. Additional history obtained from the family. The patient's history was concerning for swelling and pain in the leg. Differential diagnosis: Etiologies such as DVT, musculoskeletal, infection, joint effusion, trauma, lymphedema, idiopathic, CHF, as well as others were entertained.. The patient is a 51-year-old female who presented to the emergency department for evaluation of lower extremity pain. The patient has swelling and pain in her left leg. She does have a history of underlying liver problems and has been known to have edema in the past. She states that this is somewhat worsened compared to previous. The patient did not have an exam consistent with infection. There is no erythema and range of motion testing did not significantly worsened pain. She was found have some degree of anemia which was somewhat worsened compared to her baseline however this could represent fluid overload. I discussed the patient's laboratory radiographic studies with her. She was encouraged to rest and keep the leg elevated as much as possible. She was also encouraged to follow-up with her primary care physician for repeat laboratory studies as well as repeat Doppler symptoms do not improve. She was also encouraged return to the emergency apartment immediately if symptoms change worsen or the need arises. Medication Reconcilliation Current Medication List: was personally reviewed by me Blood Pressure Screening Patient's blood pressure: Low blood pressure Impression Primary Impression: Edema of left lower extremity Additional Impression: Anemia Scribe Attestation The scribe's documentation has been prepared under my direction and personally reviewed by me in its entirety. I confirm that the note above accurately reflects all work, treatment, procedures, and medical decision making performed by me. Departure Information Dispostion Home / Self-Care Referrals Rangel Crane D.O. (PCP) Forms HOME CARE DOCUMENTATION FORM, IMPORTANT VISIT INFORMATION, WORK / SCHOOL INSTRUCTIONS Patient Instructions ED Anemia Type Not Specified, ED Leg Swelling Unilateral, My [facility] Additional Instructions Call your doctor in the morning to schedule a follow-up appointment. I would recommend a recheck of your hemoglobin as well as a repeat Doppler of the leg if symptoms do not improve. Rest and avoid any strenuous activity. Continue all medications as prescribed. Return to the emergency department immediately if symptoms change worsen or the need arises. Problem Qualifiers Additional Impression: Anemia Anemia type: unspecified type Qualified Codes: D64.9 - Anemia, unspecified
--- NOTE | 2017-02-15 21:39 | DIAGNOSTIC IMAGING REPORT ---
LEFT ANKLE 3 VIEWS CLINICAL HISTORY: Left leg swelling. FINDINGS: 3 views of the left ankle are obtained. No prior studies are available for comparison at the time of dictation. The skeletal structures are well mineralized for age. No fracture is seen. The ankle mortise is intact. There is a large plantar calcaneal enthesophyte. No joint effusion is identified. Soft tissue edema is present around the ankle and in the calf. IMPRESSION: Soft tissue swelling with no radiographic evidence of left ankle fracture. Electronically signed by: Dallas Charles M.D. 02/15/2017 9:37 PM Dictated Date/Time: 02/15/2017 9:36 PM
[2017-02-15 21:45] LABS: BASO % 0.5 %; BASO ABS # 0.03 K/uL (0-0.2); EOS % 4.1 %; IG% 0.2 %; LYMPH % 34.9 %; LYMPH ABS # 2.28 K/uL (1.2-3.4); MEAN CELL VOLUME 98.4 fL (80-100); MEAN CORPUSCULAR HEMOGLOBIN 33.9 pg (25-34); MEAN CORPUSCULAR HGB CONC 34.4 g/dl (32-36); MEAN PLATELET VOLUME 8.8 fL (7.4-10.4); MONO % 8.7 %; NEUT % 51.6 %; PLATELET COUNT 154 K/uL (130-400); RED BLOOD COUNT 2.54 M/uL (4.2-5.4); WHITE BLOOD COUNT 6.53 K/uL (4.8-10.8)
[2017-02-15] MEDS ORDERED: POTA10CA28 PO (21:48)
[2017-02-15] MEDS ORDERED: SPIR100T PO (21:48)
[2017-02-15] MEDS ORDERED: ASMIN/60 INH (21:48)
[2017-02-15] MEDS ORDERED: POLY335019 PO (21:48)
[2017-02-15] MEDS ORDERED: MAGN400T6 PO (21:48)
[2017-02-15] MEDS ORDERED: ADVIN50/60 INH (21:48)
[2017-02-15] MEDS ORDERED: NUTR-7 PO (21:48)
[2017-02-15] MEDS ORDERED: DICY20TA35 PO (21:48)
[2017-02-15] MEDS ORDERED: SALI0.6510 NAE (21:48)
[2017-02-15] MEDS ORDERED: ONDA4TAB46 PO (21:48)
[2017-02-15] MEDS ORDERED: PANT40TA PO (21:48)
[2017-02-15] MEDS ORDERED: ATRINSX INH (21:48)
[2017-02-15] MEDS ORDERED: TRMCR515 TOP (21:48)
[2017-02-15] MEDS ORDERED: NICO1DIS9 TOP (21:48)
[2017-02-15] MEDS ORDERED: THIA100T11 PO (21:48)
[2017-02-15] MEDS ORDERED: ACET-1256 PO (21:48)
[2017-02-15] MEDS ORDERED: FRS/40 PO (21:48)
[2017-02-15] MEDS ORDERED: LURA1TAB PO (21:48)
[2017-02-15] MEDS ORDERED: FLUT0.15 NAE (21:48)
[2017-02-15] MEDS ORDERED: TRIH5TAB2 PO (21:48)
[2017-02-15] MEDS ORDERED: LACT10SO17 PO (21:48)
[2017-02-15 21:56] LABS: INR 1.2 (0.9-1.1); PARTIAL THROMBOPLASTIN RATIO 1.2; PROTHROMBIN TIME (PATIENT) 13.4 SECONDS (9.0-12.0)
--- NOTE | 2017-02-15 21:56 | DIAGNOSTIC IMAGING REPORT ---
SINGLE VIEW CHEST CLINICAL HISTORY: Dyspnea. Lower extremity edema. FINDINGS: An AP, portable, upright chest radiograph is compared to study dated 11/18/2016 and correlated with chest CT dated 05/28/2011. The heart is enlarged and there is atherosclerotic calcification of the thoracic aorta. There is pulmonary vascular congestion. There are calcified mediastinal lymph nodes. Mild chronic elevation of the right hemidiaphragm is similar to previous. No airspace consolidation, large pleural effusion, or pneumothorax is seen. The skeletal structures are osteopenic. The bony thorax is grossly intact. IMPRESSION: 1. Cardiomegaly with evidence of mild congestive failure. 2. No airspace consolidation or large pleural effusion is seen. Electronically signed by: Dallas Charles M.D. 02/15/2017 9:54 PM Dictated Date/Time: 02/15/2017 9:53 PM
[2017-02-15 22:09] LABS: ALT/SGPT 20 U/L (12-78); BLOOD UREA NITROGEN 4 mg/dl (7-18); CALCIUM 8.6 mg/dl (8.5-10.1); CARBON DIOXIDE 27 mmol/L (21-32); CHLORIDE 105 mmol/L (98-107); CREATININE 0.84 mg/dl (0.60-1.20); GLUCOSE 138 mg/dl (70-99); POTASSIUM 3.5 mmol/L (3.5-5.1); SODIUM 138 mmol/L (136-145); URIC ACID 5.4 mg/dl (2.6-7.2)
[2017-02-15 22:13] LABS: ALB/GLOB RATIO 0.6 (0.9-2); ALKALINE PHOSPHATASE 97 U/L (45-117); AST/SGOT 41 U/L (15-37)
[2017-02-15 22:33] LABS: COMPLETE YES
[2017-02-15 22:35] LABS: LYME DISEASE AB IGG NEG (NEG); LYME DISEASE AB IGM NEG (NEG)
--- NOTE | 2017-02-15 22:35 | DIAGNOSTIC IMAGING REPORT ---
ULTRASOUND LEFT LOWER EXTREMITY VENOUS CLINICAL HISTORY: Left leg swelling. COMPARISON STUDY: No priors. TECHNIQUE: Real-time, grayscale, and color Doppler sonography of the deep veins of the left lower extremity was performed from the inguinal crease to the calf. Compression and augmentation were utilized. FINDINGS: There is no sonographic evidence of deep venous thrombosis identified in the left lower extremity. The common femoral, superficial femoral, and popliteal veins are patent and normally compressible. The greater saphenous vein and the profunda femoris vein at the junction with the common femoral vein are clear. The visualized calf veins are patent. IMPRESSION: There is no sonographic evidence of deep venous thrombosis identified in the left lower extremity. Electronically signed by: Dallas Charles M.D. 02/15/2017 10:34 PM Dictated Date/Time: 02/15/2017 10:34 PM
[2017-02-15 23:27] VITALS: PULSE 75; O2SAT 94
[2017-02-15 23:30] VITALS: BP 90/42
[2017-02-15] MEDS ORDERED: OXYCODONE IR HOME PACK PO ONE (23:45)
== END 2017-02-15 23:52 | disposition home or self-care (01) ==
LOC: C.EDB 20:39
DX: R60.0 Localized edema (principal); D64.9 Anemia, unspecified; F41.9 Anxiety disorder, unspecified; J45.909 Unspecified asthma, uncomplicated; F31.9 Bipolar disorder, unspecified; I50.9 Heart failure, unspecified; I10 Essential (primary) hypertension; G47.30 Sleep apnea, unspecified; Z83.3 Family history of diabetes mellitus

== ENCOUNTER 2017-04-10 07:36 | Emergency (ER) | payer OTHER ==
[~2017-04-10] VITALS: Ht 165.1 cm; Wt 80.8 kg
[~2017-04-10 07:36] MED LIST changes: -ACET-1222 PO; +ACET-1256 PO; -ALBINS INH; +ASMIN/60 INH; -ASPCH81X PO; -ATRINS NEB; +ATRINSX INH; -BNT20 PO; +DICY20TA35 PO; +FLUT0.15 NAE; +FRS/40 PO; -IMD2X PO; -IPRA1AER2 INH; +LACT10SO17 PO; -LACT10SO30 PO; -LSX40 PO; +LURA1TAB PO; -LURA40TA PO; +MAGN400T6 PO; -MGNO400 PO; -MULT-890 PO; -NICO14DI5 TD; +NICO1DIS9 TOP; +ONDA4TAB46 PO; +POLY335019 PO; +POTA10CA28 PO; -PRT40 PO; -SIME80CH PO; +SPIR100T PO; -SPRN100 PO; +THIA100T11 PO; -THM100 PO; +TRMCR515 TOP
[2017-04-10 07:40] VITALS: TEMP 36.8; Ht 165.1 cm; Wt 80.8 kg
[2017-04-10] MEDS ORDERED: SODIUM CHLORIDE 0.9% 1000ML 1,000 ML IV STA (08:04)
[2017-04-10] MEDS ORDERED: KETOROLAC TROMETHAMINE 30 MG/ML VIAL IV STA (08:04)
[2017-04-10] MEDS ORDERED: PROCHLORPERAZINE 5 MG/ML 2 ML VIAL IV STA (08:12)
[2017-04-10 08:21] LABS: BASO % 0.6 %; BASO ABS # 0.03 K/uL (0-0.2); COMPLETE YES; EOS % 3.6 %; HEMATOCRIT 29.2 % (37-47); IG% 0.2 %; LYMPH % 30.6 %; LYMPH ABS # 1.63 K/uL (1.2-3.4); MEAN CORPUSCULAR HEMOGLOBIN 33.2 pg (25-34); MEAN CORPUSCULAR HGB CONC 33.9 g/dl (32-36); MEAN PLATELET VOLUME 9.1 fL (7.4-10.4); MONO % 10.3 %; NEUT % 54.7 %; PLATELET COUNT 165 K/uL (130-400); RED BLOOD COUNT 2.98 M/uL (4.2-5.4); WHITE BLOOD COUNT 5.32 K/uL (4.8-10.8)
[2017-04-10 08:25] LABS: INR 1.4 (0.9-1.1); PARTIAL THROMBOPLASTIN RATIO 1.3; PROTHROMBIN TIME (PATIENT) 14.6 SECONDS (9.0-12.0)
[2017-04-10 08:45] LABS: ALKALINE PHOSPHATASE 72 U/L (45-117); ALT/SGPT 24 U/L (12-78); AST/SGOT 55 U/L (15-37); BLOOD UREA NITROGEN 5 mg/dl (7-18); BUN/CREATININE RATIO 4.5 (10-20); CARBON DIOXIDE 27 mmol/L (21-32); CHLORIDE 100 mmol/L (98-107); CREATININE 1.08 mg/dl (0.60-1.20); GLUCOSE 150 mg/dl (70-99); MAGNESIUM 2.1 mg/dl (1.8-2.4); POTASSIUM 3.1 mmol/L (3.5-5.1); SODIUM 136 mmol/L (136-145)
--- NOTE | 2017-04-10 08:46 | DIAGNOSTIC IMAGING REPORT ---
CHEST ONE VIEW PORTABLE CLINICAL HISTORY: 51 years-old Female presenting with EVALUATE ALTERED MENTAL STATUS/WEAKNESS. TECHNIQUE: Portable upright AP view of the chest was obtained. COMPARISON: 02/15/2017. FINDINGS: Calcified mediastinal lymph nodes suggested. Atherosclerosis of aortic arch. Cardiac silhouette mildly enlarged unchanged. Mild pulmonary vascular prominence and prominent lung markings at the lung bases. No focal infiltrate. No large effusion or pneumothorax. Degenerative changes of the thoracic spine. Upper abdomen normal. IMPRESSION: 1. Findings consistent with volume overload in the setting of mild cardiomegaly. No linaet pulmonary edema. Electronically signed by: Cheo Terry M.D. 04/10/2017 8:45 AM Dictated Date/Time: 04/10/2017 8:41 AM
[2017-04-10 08:54] LABS: URINE APPEARANCE CLEAR (CLEAR); URINE BILIRUBIN NEG (NEG); URINE COLOR YELLOW; URINE EPITHELIAL CELL AUTO 0-5 /lpf (0-5); URINE NITRITE NEG (NEG); URINE SPECIFIC GRAVITY 1.009 (1.000-1.030); UROBILINOGEN NEG (NEG); ZZUR CULT IF INDIC CLEAN CATCH NO
--- NOTE | 2017-04-10 08:59 | DIAGNOSTIC IMAGING REPORT ---
CT HEAD WITHOUT CONTRAST (CT) CLINICAL HISTORY: Headache fever and altered mental status. Weakness. COMPARISON STUDY: 07/03/2013 TECHNIQUE: Axial CT of the brain is performed from the vertex to the skull base. IV contrast was not administered for this examination. A dose lowering technique was utilized adhering to the principles of ALARA. CT DOSE: 537.48 mGy.cm FINDINGS: No intra or extra-axial mass lesions are visualized. There is no CT evidence of acute cortical infarction. There is no evidence of midline shift. There is no acute hemorrhage. No calvarial fractures are visualized. There are minor white matter hypodensities likely on a small vessel basis. 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 There is no evidence of pathologic ventricular dilatation. There is no evidence of acute sinusitis IMPRESSION: No acute intracranial findings Electronically signed by: Jesús Esquivel M.D. 04/10/2017 8:57 AM Dictated Date/Time: 04/10/2017 8:56 AM
[2017-04-10 09:00] LABS: MANUAL MICROSCOPIC REQUIRED? NO; REVIEW REQ? NO
[2017-04-10] MEDS ORDERED: TRAZ50TA35 PO (09:31)
--- NOTE | 2017-04-10 10:05 | EMERGENCY ROOM VISIT NOTE ---
History Report prepared by Sally: Crystal Celis Under the Supervision of: Dr. Jerod Caba D.O. First contact with patient: 07:40 Chief Complaint: ILLNESS Stated Complaint: HEADACHE FEVER History of Present Illness The patient is a 51 year old female who presents to the Emergency Room with complaints of a persistent headache for the past four days. She currently rates her discomfort as a 5/10 in severity. The patient states that she has a history of migraines, but states that she is no longer on medication for her migraines. She states that recently she has been having more headaches. The patient states that for the past week she has been weak, dizzy, and near syncopal. She associates photophobia and a change in vision with her symptoms, noting that these are typical for her migraines. The patient additionally reports 2-3 of fever and chills. She states that over the past several weeks she has been experiencing increasing shortness of breath and has had abdominal distension. The patient reports three days of constipation. Source of History: patient Onset: four dayas Position: head Symptom Intensity: 5/10 Quality: ache Timing: other (persistent) Associated Symptoms: + fevers, + chills, + SOB, + weakness Note: Associated Symptoms: dizziness, near syncopal, constipation, photophobia, change in vision, abdominal distension Review of Systems See HPI for pertinent positives & negatives. A total of 10 systems reviewed and were otherwise negative. Past Medical & Surgical Medical Problems: (1) Anxiety (2) Asthma (3) Bipolar 1 disorder (4) CHF (congestive heart failure) (5) H/O alcohol abuse (6) HTN, goal below 140/90 (7) Hx of migraines (8) Increased abdominal girth (9) Sleep apnea (10) Tobacco use disorder Surgical Problems: (1) S/P cholecystectomy (2) S/P knee replacement (3) S/P tubal ligation Family History Diabetes mellitus SISTER FH: brain cancer FATHER Hodgkin's lymphoma MOTHER Social History Smoking Status: Former Smoker Alcohol Use: other Drug Use: none Marital Status: Housing Status: lives with family Current/Historical Medications Scheduled Dicyclomine Hcl (Bentyl), 20 MG PO BID Fluticasone Prop/Salmeterol (Advair Diskus 500/50 60 Dose), 1 PUFF INH BID Fluticasone Propionate (Nasal) (Flonase Allergy Relief), 2 SPRY [place]LE DAILY Folic Acid (Folic Acid), 1 MG PO DAILY Furosemide (Lasix), 40 MG PO BID Hydroxyzine Hcl (Atarax), 25 MG PO NOON Ipratropium [place] (Atrovent 0.02% Soln), 1 VIAL INH Q6-8HRS Lactulose (Chronulac), 45 ML PO DAILY Lamotrigine (Lamictal), 200 MG PO HS Lamotrigine (Lamictal), 100 MG PO DAILY Losartan Potassium (Cozaar), 25 MG PO DAILY Lurasidone Hcl (Latuda), 20 MG PO BID Magnesium Oxide (Mag-Ox), 400 MG PO BID Mometasone Furoate (Asmanex Twisthaler 60 Met), 2 PUFF INH BID17 Montelukast Sodium (Singulair), 10 MG PO HS Nicotine (Nicotine Step 3), 1 PATCH TOP DAILY Nutritional Supplements (Boost), 1 CAN PO TIDM Pantoprazole (Protonix), 40 MG PO BID Polyethylene Glycol 3350 (Miralax), 17 GM PO DAILY Potassium Chloride (Micro-K Ext Rel), 10 MEQ PO DAILY Spironolactone (Aldactone), 100 MG PO QAM Thiamine Hcl (Vitamin B-1), 100 MG PO DAILY Trazodone Hcl (Trazodone), 150 MG PO HS Trazodone Hcl (Trazodone), 75 MG PO QPM Trihexyphenidyl Hcl (Trihexyphenidyl Hcl), 0.5 TAB PO DAILY Scheduled PRN Acetaminophen (Tylenol), 1-2 TABS PO BID PRN for Pain Ondansetron Hcl (Zofran), 4 MG PO Q8 PRN for Nausea Saline ([place] Nasal [place]), 1 SPRAY KOLE for PRN Tramadol (Ultram), 50 MG PO Q6H PRN for severe pain Triamcinolone Acet (Triamcinolone Acetonide), 1 APPLN TOP BID PRN for Allergies Coded Allergies: [place] (Verified Allergy, Severe, HIVES, 04/10/17) [place] Tar (Unverified Allergy, Mild, 05/11/15) BEE STING (Verified Allergy, Unknown, HIVES AND SWELLING, 04/10/17) POLLEN (Verified Allergy, Unknown, UNKNOWN, 04/10/17) Physical Exam Vital Signs Date Time Temp Pulse Resp B/P (MAP) Pulse Ox O2 Delivery O2 Flow Rate FiO2 04/10/17 10:19 75 18 122/64 97 04/10/17 09:32 71 18 101/51 98 Room Air 04/10/17 08:25 71 18 112/56 97 Room Air 71 113/56 72 114/58 04/10/17 08:00 73 04/10/17 07:40 36.8 85 18 116/61 98 Room Air Physical Exam CONSTITUTIONAL/VITAL SIGNS: Reviewed / noted above. GENERAL: Non-toxic in appearance. INTEGUMENTARY: Warm, dry, and [place]. HEAD: Normocephalic. EYES: without scleral icterus or trauma. ENT/OROPHARYNX: clear and moist. LYMPHADENOPATHY/NECK: Is supple without lymphadenopathy or meningismus. RESPIRATORY: Lungs clear and equal. CARDIOVASCULAR: Regular rate and rhythm. GI/ABDOMEN: Soft and nontender. No organomegaly or pulsatile mass. No rebound or guarding. Normal bowel sounds. EXTREMITIES: Warm and well perfused. BACK: No CVA tenderness. NEUROLOGICAL: Intact without focal deficits. PSYCHIATRIC: normal affect. MUSCULOSKELETAL: Normally developed with good muscle tone. Medical Decision & Procedures ER Provider Diagnostic Interpretation: Radiology results as stated below per my review and radiologist interpretation: CT HEAD WITHOUT CONTRAST (CT) CLINICAL HISTORY: Headache fever and altered mental status. Weakness. COMPARISON STUDY: 07/03/2013 TECHNIQUE: Axial CT of the brain is performed from the vertex to the skull base. IV contrast was not administered for this examination. A dose lowering technique was utilized adhering to the principles of ALARA. CT DOSE: 537.48 mGy.cm FINDINGS: No intra or extra-axial mass lesions are visualized. There is no CT evidence of acute cortical infarction. There is no evidence of midline shift. There is no acute hemorrhage. No calvarial fractures are visualized. There are minor white matter hypodensities likely on a small vessel basis. 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 There is no evidence of pathologic ventricular dilatation. There is no evidence of acute sinusitis IMPRESSION: No acute intracranial findings Electronically signed by: Jesús Esquivel M.D. 04/10/2017 8:57 AM Dictated Date/Time: 04/10/2017 8:56 AM CHEST ONE VIEW PORTABLE CLINICAL HISTORY: 51 years-old Female presenting with EVALUATE ALTERED MENTAL STATUS/WEAKNESS. TECHNIQUE: Portable upright AP view of the chest was obtained. COMPARISON: 02/15/2017. FINDINGS: Calcified mediastinal lymph nodes suggested. Atherosclerosis of aortic arch. Cardiac silhouette mildly enlarged unchanged. Mild pulmonary vascular prominence and prominent lung markings at the lung bases. No focal infiltrate. No large effusion or pneumothorax. Degenerative changes of the thoracic spine. Upper abdomen normal. IMPRESSION: 1. Findings consistent with volume overload in the setting of mild cardiomegaly. No lianet pulmonary edema. Electronically signed by: Cheo Terry M.D. 04/10/2017 8:45 AM Dictated Date/Time: 04/10/2017 8:41 AM Laboratory Results 04/10/17 07:53 Red Blood Count 2.98, Mean Corpuscular Volume 98.0, Mean Corpuscular Hemoglobin 33.2, Mean Corpuscular Hemoglobin Concent 33.9, Mean Platelet Volume 9.1, Neutrophils (%) (Auto) 54.7, Lymphocytes (%) (Auto) 30.6, Monocytes (%) (Auto) 10.3, Eosinophils (%) (Auto) 3.6, Basophils (%) (Auto) 0.6, Neutrophils # (Auto ) 2.91, Lymphocytes # (Auto) 1.63, Monocytes # (Auto) 0.55, Eosinophils # (Auto ) 0.19, Basophils # (Auto) 0.03 04/10/17 07:53 Test 04/10/17 07:53 04/10/17 08:20 White Blood Count 5.32 K/uL (4.8-10.8) Red Blood Count 2.98 M/uL (4.2-5.4) Hemoglobin 9.9 g/dL (12.0-16.0) Hematocrit 29.2 % (37-47) Mean Corpuscular Volume 98.0 fL (80-100) Mean Corpuscular Hemoglobin 33.2 pg (25-34) Mean Corpuscular Hemoglobin Concent 33.9 g/dl (32-36) Platelet Count 165 K/uL (130-400) Mean Platelet Volume 9.1 fL (7.4-10.4) Neutrophils (%) (Auto) 54.7 % Lymphocytes (%) (Auto) 30.6 % Monocytes (%) (Auto) 10.3 % Eosinophils (%) (Auto) 3.6 % Basophils (%) (Auto) 0.6 % Neutrophils # (Auto) 2.91 K/uL (1.4-6.5) Lymphocytes # (Auto) 1.63 K/uL (1.2-3.4) Monocytes # (Auto) 0.55 K/uL (0.11-0.59) Eosinophils # (Auto) 0.19 K/uL (0-0.5) Basophils # (Auto) 0.03 K/uL (0-0.2) RDW Standard Deviation 50.1 fL (36.4-46.3) RDW Coefficient of Variation 14.1 % (11.5-14.5) Immature Granulocyte % (Auto) 0.2 % Immature Granulocyte # (Auto) 0.01 K/uL (0.00-0.02) Prothrombin Time 14.6 SECONDS (9.0-12.0) Prothromb Time International Ratio 1.4 (0.9-1.1) Activated Partial Thromboplast Time 33.2 SECONDS (21.0-31.0) Partial Thromboplastin Ratio 1.3 Anion Gap 9.0 mmol/L (3-11) Est Creatinine Clear Calc Drug Dose 64.7 ml/min Estimated GFR () 68.8 Estimated GFR (Non- 59.4 BUN/Creatinine Ratio 4.5 (10-20) Calcium Level 9.0 mg/dl (8.5-10.1) Magnesium Level 2.1 mg/dl (1.8-2.4) Total Bilirubin 2.3 mg/dl (0.2-1) Direct Bilirubin 1.0 mg/dl (0-0.2) Aspartate Amino Transf (AST/SGOT) 55 U/L (15-37) Alanine Aminotransferase (ALT/SGPT) 24 U/L (12-78) Alkaline Phosphatase 72 U/L (45-117) Total Creatine Kinase 144 U/L (26-192) Creatine Kinase MB < 0.5 ng/ml (0.5-3.6) Creatine Kinase MB Ratio (0-3.0) Troponin I < 0.015 ng/ml (0-0.045) Total Protein 8.0 gm/dl (6.4-8.2) Albumin 3.2 gm/dl (3.4-5.0) Lipase 163 U/L (73-393) Urine Color YELLOW Urine Appearance CLEAR (CLEAR) Urine pH 7.0 (4.5-7.5) Urine Specific [place] 1.009 (1.000-1.030) Urine Protein NEG (NEG) Urine Glucose (UA) NEG (NEG) Urine Ketones NEG (NEG) Urine Occult Blood NEG (NEG) Urine Nitrite NEG (NEG) Urine Bilirubin NEG (NEG) Urine Urobilinogen NEG (NEG) Urine Leukocyte Esterase NEG (NEG) Urine WBC (Auto) 0 /hpf (0-5) Urine RBC (Auto) 0-4 /hpf (0-4) Urine Hyaline Casts (Auto) 0 /lpf (0-5) Urine Epithelial Cells (Auto) 0-5 /lpf (0-5) Urine Bacteria (Auto) NEG (NEG) Laboratory results as stated above per my review. Medications Administered Medications (Trade) Dose Ordered Sig/Horacio Route Start Time Stop Time Status Last Admin Dose Admin Sodium Chloride 1,000 ml @ 999 mls/hr Q1H1M STAT IV 04/10/17 08:04 04/10/17 09:04 DC 04/10/17 08:15 999 MLS/HR Ketorolac Tromethamine (Toradol Inj) 30 mg NOW STAT IV 04/10/17 08:04 04/10/17 08:08 DC 04/10/17 08:29 30 MG Prochlorperazine Edisylate (Compazine Inj) 10 mg NOW STAT IV 04/10/17 08:12 04/10/17 08:13 DC 04/10/17 08:29 10 MG ED Course 0809: Previous medical records were reviewed. The patient was evaluated in room A10. A complete history and physical examination was performed. 0804: Ordered Toradol Inj 30 mg IV, Sodium Chloride 1000 ml @ 999 mls/hr IV. 0812: Ordered Compazine Inj 10 mg IV. 1000: I reevaluated the patient and she is resting comfortably. I discussed the exam findings with her and I discussed the treatment plan. She verbalized complete understanding and agreement. She is ready to go home. Medical Decision Differential includes: Acute intracranial bleed, trauma, meningitis, encephalitis, increased intracranial pressure, mass or mass effect, facial or dental infection, temporal arteritis, CVA, TIA, acute hypertensive emergency, sinusitis, and carbon monoxide exposure. This is a 51-year-old female who presents to the ED with a chief complaint of a headache. The patient reports that the headache is by lateral frontal and temporal. She is out of her about 4 days. She reports a history of migraines but this seems different. The patient states that she has been feeling weak and dizzy as well sometimes with standing. She has had subjective fevers. Her vital signs are normal. She is afebrile. Her orthostatic vital signs are normal. Physical exam was also unremarkable. Hemoglobin is chronically slightly low. She is 9.9 today. Complete metabolic panel was unremarkable. The bilirubin was 2.3. This is also chronic. Troponin was negative. Urine did not show infection. CT scan of the brain did not show acute process and a chest x-ray was negative for acute disease. The patient was treated with IV Compazine, IV Toradol and IV fluids. She was feeling better. She is felt to be stable for discharge and outpatient follow-up. Medication Reconcilliation Current Medication List: was personally reviewed by me Blood Pressure Screening Patient's blood pressure: Normal blood pressure Blood pressure disposition: Did not require urgent referral Impression Primary Impression: Headache Additional Impression: Weakness Scribe Attestation The scribe's documentation has been prepared under my direction and personally reviewed by me in its entirety. I confirm that the note above accurately reflects all work, treatment, procedures, and medical decision making performed by me. Departure Information Dispostion Home / Self-Care Referrals Rangel Crane D.O. Forms HOME CARE DOCUMENTATION FORM, IMPORTANT VISIT INFORMATION, WORK / SCHOOL INSTRUCTIONS Patient Instructions [facility] Additional Instructions Follow-up with your doctor for further care and evaluation in 1-2 days. Return to the emergency department for worsening or new symptoms or any concerns. You have been examined and treated today on an emergency basis only. This is not a substitute for, or an effort to provide, complete comprehensive medical care. It is impossible to recognize and treat all injuries or illnesses in a single emergency department visit. It is therefore important that you follow up closely with your doctor. Call as soon as possible for an appointment. Problem Qualifiers
[2017-04-10 10:19] VITALS: BP 122/64; PULSE 75; O2SAT 97
== END 2017-04-10 10:19 | disposition home or self-care (01) ==
LOC: C.EDB 07:38 → C.EDA 10:19
DX: R51 Headache (principal); R53.1 Weakness; R06.02 Shortness of breath; F31.9 Bipolar disorder, unspecified; F41.9 Anxiety disorder, unspecified; J45.909 Unspecified asthma, uncomplicated; I11.0 Hypertensive heart disease with heart failure; I50.9 Heart failure, unspecified; Z87.891 Personal history of nicotine dependence; Z90.49 Acquired absence of other specified parts of digestive tract; Z96.659 Presence of unspecified artificial knee joint; Z83.3 Family history of diabetes mellitus; Z80.7 Family history of other malignant neoplasms of lymphoid, hematopoietic and related tissues; Z80.8 Family history of malignant neoplasm of other organs or systems; Z79.899 Other long term (current) drug therapy

== ENCOUNTER 2017-07-10 05:49 | Emergency (ER) | payer BC, OTHER ==
[~2017-07-10] VITALS: Ht 165.1 cm; Wt 77.5 kg
[2017-07-10 05:53] VITALS: TEMP 36.8; Ht 165.1 cm; Wt 77.5 kg
[2017-07-10] MEDS ORDERED: GI COCKTAIL PO STA (06:12)
--- NOTE | 2017-07-10 06:25 | EMERGENCY ROOM VISIT NOTE ---
History First contact with patient: 06:00 Chief Complaint: RIB PAIN Stated Complaint: PAIN IN RIB CAGE History of Present Illness The patient is a 51 year old female who presents to the Emergency Room with complaints of pain under her rib cage. The patient reports that for the past 3 days, she has had pain in her upper abdomen. She states this feels like gas and rates the discomfort in 8/10. It has been gradually worsening. She has had a slightly decreased appetite due to the pain but has been tolerating food. She denies changes in her bowel movements. She has tried Gas-X and Tums with some relief. The patient reports a history of alcoholic liver disease and states that she is making arrangements for possible transplant. She has had a prior cholecystectomy. She denies fevers, urinary symptoms, nausea or vomiting. Review of Systems A complete 10 point review of systems was reviewed with the patient with pertinent positives and negatives as per history of present illness. All else were negative. Past Medical/Surgical History Medical Problems: (1) Anxiety (2) Asthma (3) Bipolar 1 disorder (4) CHF (congestive heart failure) (5) H/O alcohol abuse (6) HTN, goal below 140/90 (7) Hx of migraines (8) Increased abdominal girth (9) Sleep apnea (10) Tobacco use disorder Surgical Problems: (1) S/P cholecystectomy (2) S/P knee replacement (3) S/P tubal ligation Family History Diabetes mellitus SISTER FH: brain cancer FATHER Hodgkin's lymphoma MOTHER Social History Smoking Status: Current Every Day Smoker Alcohol Use: other Drug Use: none Marital Status: Housing Status: lives with family Current/Historical Medications Scheduled Aspirin (Aspirin Chewable), 81 MG PO DAILY Budesonide/Formoterol Fumarate (Symbicort 160/4.5 Inhaler ), 2 PUFFS INH BID Dicyclomine Hcl (Bentyl), 10 MG PO BID Fluticasone Propionate (Nasal) (Flonase Allergy Relief), 2 SPRY [place] DAILY Folic Acid (Folic Acid), 1 MG PO DAILY Furosemide (Lasix), 40 MG PO BID Hydroxyzine Hcl (Atarax), 25 MG PO NOON Ipratropium [place] (Atrovent 0.02% Soln), 1 VIAL INH Q6-8HRS Lactulose (Chronulac), 60 ML PO TID Lamotrigine (Lamictal), 100 MG PO QAM Lamotrigine (Lamictal), 200 MG PO QPM Losartan Potassium (Cozaar), 25 MG PO DAILY Lurasidone Hcl (Latuda), 20 MG PO BID Magnesium Oxide (Mag-Ox), 400 MG PO BID Mometasone Furoate (Asmanex Twisthaler 60 Met), 2 PUFF INH DAILY Montelukast Sodium (Singulair), 10 MG PO HS Multivitamin (Multivitamin), 1 TAB PO DAILY Pantoprazole (Protonix), 40 MG PO BID Potassium Chloride (Micro-K Ext Rel), 10 MEQ PO DAILY Spironolactone (Aldactone), 100 MG PO QAM Thiamine Hcl (Vitamin B-1), 100 MG PO DAILY Trazodone Hcl (Desyrel), 150 MG PO HS Scheduled PRN Acetaminophen (Tylenol), 500-1,000 MG PO BID PRN for Pain Albuterol Sulf (Proventil 0.083% 2.5MG/3ML), 2.5 MG INH q6-8 hrs PRN for Wheezing Furosemide (Lasix), 20 MG PO QAM PRN for fluid Ipratropium-Albuterol (Combivent Respimat), 1 PUFFS INH QID PRN for SOB/Wheezing Ondansetron Hcl (Zofran), 4 MG PO Q8 PRN for Nausea Potassium Chloride (Micro-K Ext Rel), 10 MEQ PO QAM PRN for with extra lasix Sumatriptan Succinate (Imitrex), MG PO UD PRN for Migraine Physical Exam Vital Signs Date Time Temp Pulse Resp B/P (MAP) Pulse Ox O2 Delivery O2 Flow Rate FiO2 07/10/17 09:17 73 18 132/61 98 Room Air 07/10/17 07:54 67 18 129/62 94 Room Air 07/10/17 05:53 36.8 79 18 127/71 98 Room Air Physical Exam VITALS: Vitals are noted on the nurse's note and reviewed by myself. Vital signs stable. GENERAL: This is a 51-year-old female, in no acute distress, nondiaphoretic, well-developed well-nourished. SKIN: The skin was without rashes. EARS: External auditory canals clear, tympanic membranes pearly benitez without erythema or effusion bilaterally. EYES: Pupils equal round and reactive to light and accommodation. MOUTH: Mucous membranes moist. NECK: Supple without nuchal rigidity. HEART: Regular rate and rhythm without murmurs gallops or rubs. LUNGS: Clear to auscultation bilaterally without wheezes, rales or rhonchi. No retractions or accessory muscle use. ABDOMEN: Positive bowel sounds x 4. Soft, mild tenderness across the upper abdomen. Liver edge palpable. No guarding or rebound tenderness. NEURO: Patient was alert and oriented to person place and time. Medical Decision & Procedures ER Provider Diagnostic Interpretation: ABDOMEN 2VIEW W/PA CHEST RTN CLINICAL HISTORY: upper abdominal pain pain COMPARISON STUDY: 04/10/2017 FINDINGS: Mild chronic basilar interstitial prominence. No acute infiltrate. Diaphragms smooth. No significant cardiac enlargement. Mild nonobstructive ileus. No significant bowel distention. Postoperative changes consistent with lumbar laminectomy and fusion. IMPRESSION: 1. No acute process the chest. 2. Mild nonobstructive ileus. Laboratory Results 07/10/17 06:18 Red Blood Count 3.68, Mean Corpuscular Volume 95.7, Mean Corpuscular Hemoglobin 33.7, Mean Corpuscular Hemoglobin Concent 35.2, Mean Platelet Volume 9.2, Neutrophils (%) (Auto) 56.0, Lymphocytes (%) (Auto) 28.6, Monocytes (%) (Auto) 9.3, Eosinophils (%) (Auto) 5.1, Basophils (%) (Auto) 0.7, Neutrophils # (Auto) 4.26, Lymphocytes # (Auto) 2.18, Monocytes # (Auto) 0.71, Eosinophils # (Auto) 0.39, Basophils # (Auto) 0.05 07/10/17 06:18 Test 07/10/17 06:18 07/10/17 07:40 White Blood Count 7.61 K/uL (4.8-10.8) Red Blood Count 3.68 M/uL (4.2-5.4) Hemoglobin 12.4 g/dL (12.0-16.0) Hematocrit 35.2 % (37-47) Mean Corpuscular Volume 95.7 fL (80-100) Mean Corpuscular Hemoglobin 33.7 pg (25-34) Mean Corpuscular Hemoglobin Concent 35.2 g/dl (32-36) Platelet Count 158 K/uL (130-400) Mean Platelet Volume 9.2 fL (7.4-10.4) Neutrophils (%) (Auto) 56.0 % Lymphocytes (%) (Auto) 28.6 % Monocytes (%) (Auto) 9.3 % Eosinophils (%) (Auto) 5.1 % Basophils (%) (Auto) 0.7 % Neutrophils # (Auto) 4.26 K/uL (1.4-6.5) Lymphocytes # (Auto) 2.18 K/uL (1.2-3.4) Monocytes # (Auto) 0.71 K/uL (0.11-0.59) Eosinophils # (Auto) 0.39 K/uL (0-0.5) Basophils # (Auto) 0.05 K/uL (0-0.2) RDW Standard Deviation 50.3 fL (36.4-46.3) RDW Coefficient of Variation 14.4 % (11.5-14.5) Immature Granulocyte % (Auto) 0.3 % Immature Granulocyte # (Auto) 0.02 K/uL (0.00-0.02) Prothrombin Time 13.5 SECONDS (9.0-12.0) Prothromb Time International Ratio 1.3 (0.9-1.1) Anion Gap 6.0 mmol/L (3-11) Est Creatinine Clear Calc Drug Dose 76.1 ml/min Estimated GFR () 85.8 Estimated GFR (Non- 74.0 BUN/Creatinine Ratio 6.2 (10-20) Calcium Level 9.3 mg/dl (8.5-10.1) Total Bilirubin 2.7 mg/dl (0.2-1) Direct Bilirubin 1.2 mg/dl (0-0.2) Aspartate Amino Transf (AST/SGOT) 52 U/L (15-37) Alanine Aminotransferase (ALT/SGPT) 29 U/L (12-78) Alkaline Phosphatase 91 U/L (45-117) Troponin I < 0.015 ng/ml (0-0.045) Total Protein 8.4 gm/dl (6.4-8.2) Albumin 3.4 gm/dl (3.4-5.0) Lipase 191 U/L (73-393) Urine Color YELLOW Urine Appearance CLEAR (CLEAR) Urine pH 7.5 (4.5-7.5) Urine Specific [place] 1.004 (1.000-1.030) Urine Protein NEG (NEG) Urine Glucose (UA) NEG (NEG) Urine Ketones NEG (NEG) Urine Occult Blood NEG (NEG) Urine Nitrite NEG (NEG) Urine Bilirubin NEG (NEG) Urine Urobilinogen NEG (NEG) Urine Leukocyte Esterase NEG (NEG) Medications Administered Medications (Trade) Dose Ordered Sig/Horacio Route Start Time Stop Time Status Last Admin Dose Admin Al Hydroxide/Mg Hydroxide (Maalox Susp) 30 ml STK-MED ONCE .ROUTE 07/10/17 06:26 07/10/17 06:27 DC 07/10/17 06:27 30 ML Lidocaine HCl (Viscous Lidocaine 2% Soln) 20 ml STK-MED ONCE .ROUTE 07/10/17 06:26 07/10/17 06:27 DC 07/10/17 06:28 20 ML ECG Per My Interpretation Indication: abdominal pain Rate (beats per minute): 68 Rhythm: normal sinus Findings: no acute ischemic change, prolonged QT, no ectopy Change: no significant change ED Course The patient was evaluated as above. Labs were drawn and IV access was obtained. Patient was medicated with a GI cocktail. Patient was reevaluated and was feeling much better. I attempted to contact GI but did not receive a call back from them. The patient was anxious to go home. I spoke with case management, who will make the patient an appointment as an outpatient within the next 48 hours. Discharge instructions were reviewed with the patient. The patient verbalized understanding of my assessment and treatment plan and was discharged home in good condition. Medical Decision Differential diagnosis includes gastritis, cardiac source, pancreatitis, hepatitis, ascites, SBP, among others. The patient is a 51-year-old female with history of alcoholic cirrhosis who presents today complaining of upper abdominal pain. Labs revealed no leukocytosis or anemia. INR is 1.3, stable for the patient. Bilirubin slightly elevated from baseline at 2.7. Labs otherwise unremarkable. Urinalysis was not suggestive of infection. Troponin negative, EKG without ischemia. X-ray shows evidence of mild nonobstructive ileus. Patient was advised to keep liquid diet for the next 1-2 days. She is afebrile and has no significant tenderness on exam. She had resolution of symptoms after a GI cocktail. Symptoms may be gastritis related, however I am not comfortable making any medication changes given her history. 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 The patient understands to return for worsening symptoms. The patient was independently evaluated by Dr. Tee, ED attending physician, who agreed with my assessment and treatment plan. Based on the patient's presentation and work up, I feel the patient is stable for outpatient treatment. The patient was educated to return to the emergency department for any worsening of their current condition or new/concerning symptoms. She will follow up with her gastroenterology. Medication Reconcilliation Current Medication List: was personally reviewed by me Blood Pressure Screening Patient's blood pressure: Normal blood pressure Impression Primary Impression: Epigastric abdominal pain Departure Information Dispostion Home / Self-Care Condition GOOD Referrals Rangel Crane, D.O. (PCP) Patient Instructions [facility] Additional Instructions Clear liquid diet for the next 24-48 hours. Case management will schedule you follow up with gastroenterology within 2 days. Return to the ED with worsening pain, vomiting, fevers or other new/concerning symptoms.
[2017-07-10] MEDS ORDERED: ALUMINUM/MAGNESIUM SUSP 30 ML UDC ONE (06:26)
[2017-07-10] MEDS ORDERED: LIDOCAINE HCL 2% VISC SOLN 20 ML UDC ONE (06:26)
[2017-07-10 06:28] LABS: BASO % 0.7 %; BASO ABS # 0.05 K/uL (0-0.2); EOS % 5.1 %; EOS ABS # 0.39 K/uL (0-0.5); HEMATOCRIT 35.2 % (37-47); HEMOGLOBIN 12.4 g/dL (12.0-16.0); IG# 0.02 K/uL (0.00-0.02); LYMPH % 28.6 %; LYMPH ABS # 2.18 K/uL (1.2-3.4); MEAN CELL VOLUME 95.7 fL (80-100); MEAN CORPUSCULAR HEMOGLOBIN 33.7 pg (25-34); MEAN CORPUSCULAR HGB CONC 35.2 g/dl (32-36); MEAN PLATELET VOLUME 9.2 fL (7.4-10.4); MONO % 9.3 %; MONO ABS # 0.71 K/uL (0.11-0.59); NEUT ABS # 4.26 K/uL (1.4-6.5); PLATELET COUNT 158 K/uL (130-400); RED CELL DISTRIBUTION WIDTH CV 14.4 % (11.5-14.5); RED CELL DISTRIBUTION WIDTH SD 50.3 fL (36.4-46.3); WHITE BLOOD COUNT 7.61 K/uL (4.8-10.8)
[2017-07-10 06:52] LABS: ALBUMIN 3.4 gm/dl (3.4-5.0); ALT/SGPT 29 U/L (12-78); AST/SGOT 52 U/L (15-37); BLOOD UREA NITROGEN 6 mg/dl (7-18); CALCIUM 9.3 mg/dl (8.5-10.1); CARBON DIOXIDE 26 mmol/L (21-32); GLUCOSE 126 mg/dl (70-99); INR 1.3 (0.9-1.1); LIPASE 191 U/L (73-393); POTASSIUM 3.6 mmol/L (3.5-5.1); SODIUM 134 mmol/L (136-145)
[2017-07-10 06:54] LABS: ALKALINE PHOSPHATASE 91 U/L (45-117); TOTAL PROTEIN 8.4 gm/dl (6.4-8.2)
[2017-07-10] MEDS ORDERED: TRAZ1TAB52 PO (06:54)
[2017-07-10] MEDS ORDERED: MULT-506 PO (06:59)
[2017-07-10] MEDS ORDERED: DICY10CA55 PO (06:59)
--- NOTE | 2017-07-10 07:01 | EMERGENCY ROOM VISIT NOTE ---
ED Visit Note First contact with patient: 06:00 I saw this patient in conjunction with Chelsie Jolley PA-C. I agree with her decision making and treatment plan.
[2017-07-10] MEDS ORDERED: POTA10CA28 PO (07:02)
[2017-07-10] MEDS ORDERED: SYMIN160 INH (07:02)
[2017-07-10] MEDS ORDERED: FRS/40 PO (07:02)
--- NOTE | 2017-07-10 07:05 | DIAGNOSTIC IMAGING REPORT ---
ABDOMEN 2VIEW W/PA CHEST RTN CLINICAL HISTORY: upper abdominal pain pain COMPARISON STUDY: 04/10/2017 FINDINGS: Mild chronic basilar interstitial prominence. No acute infiltrate. Diaphragms smooth. No significant cardiac enlargement. Mild nonobstructive ileus. No significant bowel distention. Postoperative changes consistent with lumbar laminectomy and fusion. IMPRESSION: 1. No acute process the chest. 2. Mild nonobstructive ileus. The above report was generated using voice recognition software. It may contain grammatical, syntax or spelling errors. Electronically signed by: Sanchez Larios M.D. 07/10/2017 7:04 AM Dictated Date/Time: 07/10/2017 7:03 AM
[2017-07-10] MEDS ORDERED: LAMO100T PO ×2 (07:07)
[2017-07-10] MEDS ORDERED: TYLOTC500 PO (07:08)
[2017-07-10] MEDS ORDERED: ASPCH81X PO (07:09)
[2017-07-10] MEDS ORDERED: IPRA1AER2 INH (07:09)
[2017-07-10] MEDS ORDERED: ALBINS/ INH (07:10)
[2017-07-10] MEDS ORDERED: SUMA25TA12 PO (07:11)
[2017-07-10 09:17] VITALS: BP 132/61; PULSE 73; O2SAT 98
== END 2017-07-10 09:25 | disposition home or self-care (01) ==
LOC: C.EDB 05:50 → C.EDA 09:25
DX: R10.13 Epigastric pain (principal); K70.30 Alcoholic cirrhosis of liver without ascites; J45.909 Unspecified asthma, uncomplicated; F31.9 Bipolar disorder, unspecified; I11.0 Hypertensive heart disease with heart failure; I50.9 Heart failure, unspecified; F17.200 Nicotine dependence, unspecified, uncomplicated; Z79.82 Long term (current) use of aspirin; Z79.51 Long term (current) use of inhaled steroids; Z83.3 Family history of diabetes mellitus; Z80.8 Family history of malignant neoplasm of other organs or systems; Z80.7 Family history of other malignant neoplasms of lymphoid, hematopoietic and related tissues

== ENCOUNTER 2017-11-23 10:38 | Inpatient (IN) | payer BC, OTHER ==
[~2017-11-23] VITALS: Ht 165.1 cm; Wt 79.3 kg
[~2017-11-23 10:38] MED LIST changes: -ACET-1256 PO; -ADVIN50/60 INH; +ALBINS/ INH; +ASPCH81X PO; +DICY10CA55 PO; -DICY20TA35 PO; +IPRA1AER2 INH; -LACT10SO17 PO; +LACT10SO3 PO; -LAMO100T16 PO; +MULT-506 PO; -NICO1DIS9 TOP; -NUTR-7 PO; -POLY335019 PO; -SALI0.6510 NAE; +SUMA25TA12 PO; +SYMIN160 INH; +THIA100T10 PO; -THIA100T11 PO; -TRAM-10 PO; +TRAZ1TAB52 PO; -TRAZ50TA35 PO; -TRIH5TAB2 PO; -TRMCR515 TOP; +TYLOTC500 PO
[2017-11-23] MEDS ORDERED: SODIUM CHLORIDE 0.9% 1000ML 1,000 ML IV STA (11:16)
[2017-11-23] MEDS ORDERED: MoRPHine SULFATE 4 MG/ML 1 ML CARP\\VIAL IV STA ×2 (11:16→13:07)
[2017-11-23] MEDS ORDERED: ONDANSETRON INJ 2 MG/ML 2 ML VIAL IV STA ×2 (11:16→15:04)
[2017-11-23] MEDS ORDERED: OPTIRAY 320 IV PRN (11:30)
[2017-11-23 11:44] LABS: BASO % 0.3 %; BASO ABS # 0.03 K/uL (0-0.2); EOS % 1.8 %; EOS ABS # 0.19 K/uL (0-0.5); HEMATOCRIT 26.8 % (37-47); HEMOGLOBIN 9.1 g/dL (12.0-16.0); IG# 0.03 K/uL (0.00-0.02); LYMPH % 26.3 %; LYMPH ABS # 2.81 K/uL (1.2-3.4); MEAN CELL VOLUME 90.8 fL (80-100); MEAN CORPUSCULAR HEMOGLOBIN 30.8 pg (25-34); MONO % 9.4 %; NEUT % 61.9 %; NEUT ABS # 6.62 K/uL (1.4-6.5); PLATELET COUNT 154 K/uL (130-400); RED CELL DISTRIBUTION WIDTH CV 14.8 % (11.5-14.5); RED CELL DISTRIBUTION WIDTH SD 49.4 fL (36.4-46.3); WHITE BLOOD COUNT 10.68 K/uL (4.8-10.8)
[2017-11-23 11:58] LABS: ALBUMIN 3.2 gm/dl (3.4-5.0); CALCIUM 8.4 mg/dl (8.5-10.1); CREATININE 0.89 mg/dl (0.60-1.20); POTASSIUM 3.5 mmol/L (3.5-5.1); TOTAL PROTEIN 7.1 gm/dl (6.4-8.2)
--- NOTE | 2017-11-23 14:43 | DIAGNOSTIC IMAGING REPORT ---
CT OF THE ABDOMEN AND PELVIS WITH CONTRAST CLINICAL HISTORY: Abdominal pain. GI bleed. COMPARISON STUDY: CT of the abdomen and pelvis December 07, 2016 and abdominal series July 10, 2017. TECHNIQUE: Following IV administration of 120 mL of Optiray-320, axial images of the abdomen and pelvis were obtained from the lung bases to the proximal femurs. Images were reviewed in the axial, sagittal, and coronal planes. IV contrast was administered without complication. A dose lowering technique was utilized adhering to the principles of ALARA. Oral contrast was administered. CT DOSE: 447.02 mGy.cm FINDINGS: Lung bases are clear. Biliary ductal dilatation has slightly increased since exam of December 07, 2016. There is no pancreatic ductal dilatation or peripancreatic infiltration. There are calcified granulomas within the spleen. The adrenal glands, kidneys and pancreas are normal. Postoperative findings within the lumbar spine are noted. No pneumatosis, free air or portal venous gas is present. Moderate upper abdominal varices, predominantly retroperitoneal in location, are noted. The size of the spleen is at the upper limits of normal. No hepatic lesions are identified. The liver is not overtly cirrhotic by CT. However, these findings suggest portal hypertension. There is no ascites. There is no evidence for a bowel obstruction. There is mild dilatation of the cecum. The appendix is normal. Sensitivity for detection mucosal lesions is diminished given CT technique. IMPRESSION: 1. No acute process within the abdomen or pelvis. 2. Moderate abdominal varices. Liver not overtly cirrhotic by CT however the varices suggest portal hypertension statistically due to liver disease. 3. Moderate biliary ductal dilatation. This is likely related to previous cholecystectomy however could be correlated with obstructive liver function tests. 4. Mild cecal distention without evidence for a bowel obstruction. Electronically signed by: Len Mayfield M.D. 11/23/2017 2:41 PM Dictated Date/Time: 11/23/2017 2:33 PM
--- NOTE | 2017-11-23 15:12 | EMERGENCY ROOM VISIT NOTE ---
ED Visit Note First contact with patient: 11:02 I did evaluate and examine this patient myself. I did guide management for the patient. I agree with the PA's assessment as discussed. Please see the PAs dictation for further details. I did independently review the CT scan of the abdomen and pelvis and blood work. Patient is presenting with 2 days of rectal bleeding with black stools. She does take aspirin daily. She is anemic here. She is hemodynamically stable. She will be hospitalized for further care and evaluation.
[2017-11-23] MEDS ORDERED: PANTOprazole INJ 80 MG in DEXTROSE 5% 100ML 100 ML IV SCH (15:15)
[2017-11-23] MEDS ORDERED: ONDANSETRON INJ 2 MG/ML 2 ML VIAL IV PRN (15:45)
[2017-11-23] MEDS ORDERED: ACETAMINOPHEN 325 MG TAB PO PRN (15:45)
[2017-11-23] MEDS ORDERED: ADVIN50/60 INH (16:05)
[2017-11-23] MEDS ORDERED: RIFA550T2 PO (16:05)
[2017-11-23] MEDS ORDERED: LAMO25TA PO (16:08)
[2017-11-23] MEDS ORDERED: OCTREOTIDE IV BOLUS & DRIP IV STA (16:29)
[2017-11-23] MEDS ORDERED: TRAMADOL HCL 50 MG TAB PO PRN (16:45)
--- NOTE | 2017-11-23 16:53 | Gastrointestinal Consultation ---
Gastrointestinal Consultation Date of Consultation: Nov 23, 2017 Attending Physician: KIRA Wallace Consulting Physician: Marck Rodriguez Reason for Consultation: GI bleed History of Present Illness Patient is a 52 year old female known to our service; hx of ETOH cirrhosis ( abstinent since October 2016) w complications of hepatic encephalopathy, ascites, portal HTN who presented to ED w c/o rectal bleeding since Monday. Reports initially has bright red blood on Monday, progressively blood turns darker red in color almost black. Stools semi formed but not diarrhea like. Has associated abd cramping mostly on mid to lower. + nausea and vomiting up till this AM but denies any hematemesis, coffee ground emesis. Denies any fever, chills, CP, SOB , new meds, sick contact, no recent antibiotics. Labs showed H/H 01/24; Hgb close to baseline 9-10. Plt 154. Chem panel showed Na 126, BUN/Cr normal. LFTs mildly elevated close to baseline. CT abd/pelvis w contrast: 1. No acute process within the abdomen or pelvis. 2. Moderate abdominal varices. Liver not overtly cirrhotic by CT however the varices suggest portal hypertension statistically due to liver disease. 3. Moderate biliary ductal dilatation. This is likely related to previous cholecystectomy however could be correlated with obstructive liver function tests. 4. Mild cecal distention without evidence for a bowel obstruction. Last EGD 07/2017: Kelly's esophagitis, gastritis. Portal HTN. No signs of esophageal varices. Last colonoscopy 08/2016: Adenomatous polyps, diverticulosis, internal hemorrhoids Past Medical/Surgical History Medical Problems: (1) Anemia Status: Acute (2) Edema of left lower extremity Status: Acute (3) Epigastric abdominal pain Status: Acute (4) Headache Status: Acute (5) SBP (spontaneous bacterial peritonitis) Status: Acute (6) Weakness Status: Acute Past Medical History: Bipolar, HTN, Asthma, Migraine, Spinal stenosis Past Surgical History: Tubal ligation Cholecystectomy Family History Diabetes mellitus SISTER FH: brain cancer FATHER Hodgkin's lymphoma MOTHER Social History Smoking Status: Current Every Day Smoker Alcohol Use: other Drug Use: none Marital Status: Housing Status: lives with family Allergies Coded Allergies: [place] (Verified Allergy, Severe, HIVES, 11/23/17) [place] Tar (Unverified Allergy, Mild, 11/23/17) BEE STING (Verified Allergy, Unknown, HIVES AND SWELLING, 11/23/17) POLLEN (Verified Allergy, Unknown, UNKNOWN, 11/23/17) Current Medications Home Meds and Scripts Medications Dose Route/Sig Max Daily Dose Days Date Category Dose Instructions Lamictal (Lamotrigine) 25 Mg Tab 75 Mg PO BID 30 11/23/17 Reported Advair Diskus 500/50 60 Dose (Fluticasone Prop/Salmeterol) 1 Ea Aerp 1 Puffs INH BID 30 11/23/17 Reported Xifaxan (Rifaximin) 550 Mg Tab 1 Tab PO BID 14 11/23/17 Reported Proventil 0.083% 2.5MG/3ML (Albuterol Sulf) 2.5 Mg/3 Ml Nebu 2.5 Mg INH Q6-8 HRS PRN 07/10/17 Reported Aspirin Chewable (Aspirin) 81 Mg Chew 81 Mg PO DAILY 07/10/17 Reported Tylenol (Acetaminophen) 500 Mg Tab 500-1,000 Mg PO BID PRN 07/10/17 Reported do not exceed 2gm/24hr Symbicort 160/4.5 Inhaler (Budesonide/Formoterol Fumarate) Aero 2 Puffs INH BID 07/10/17 Reported Micro-K Ext Rel (Potassium Chloride) 10 Meq Capcr 10 Meq PO QAM PRN 07/10/17 Reported Lasix (Furosemide) 40 Mg Tab 20 Mg PO QAM PRN 07/10/17 Reported Bentyl (Dicyclomine Hcl) 10 Mg Cap 20 Mg PO BID 07/10/17 Reported Multivitamin (Multivitamins) Tab 1 Tab PO DAILY 07/10/17 Reported Desyrel (Trazodone Hcl) 150 Mg Tab 150 Mg PO HS 07/10/17 Reported Protonix (Pantoprazole Sodium) 40 Mg Tab 40 Mg PO BID 02/15/17 Reported Atrovent 0.02% Soln (Ipratropium Cool) 2.5 Ml Nebu 1 Vial INH Q6-8HRS PRN 02/15/17 Reported Flonase Allergy Relief (Fluticasone Propionate (Nasal)) 50 Mcg/Act Spr 2 [place] DAILY 02/15/17 Reported Latuda (Lurasidone Hcl) 20 Mg Tab 20 Mg PO BID 02/15/17 Reported Mag-Ox (Magnesium Oxide) 400 Mg Tab 400 Mg PO BID 02/15/17 Reported Aldactone (Spironolactone) 100 Mg Tab 100 Mg PO QAM 02/15/17 Reported Zofran (Ondansetron HCl) 4 Mg Tab 4 Mg PO Q8 PRN 02/15/17 Reported Lasix (Furosemide) 40 Mg Tab 40 Mg PO BID 02/15/17 Reported Vitamin B-1 (Thiamine HCl) 100 Mg Tab 100 Mg PO DAILY 02/15/17 Reported Chronulac (Lactulose) 10 Gm/15 Ml Syrp 60 Ml PO QID 02/15/17 Reported Micro-K Ext Rel (Potassium Chloride) 10 Meq Cap 10 Meq PO DAILY 02/15/17 Reported Folic Acid 1 Mg Tab 1 Mg PO DAILY 12/07/16 Reported Atarax (Hydroxyzine Hcl) 25 Mg Tab 25 Mg PO NOON 12/07/16 Reported Cozaar (Losartan Potassium) 25 Mg Tab 25 Mg PO DAILY 08/28/13 Reported Singulair (Montelukast Sodium) 10 Mg Tab 10 Mg PO HS 02/02/12 Reported Review of Systems Constitutional: No fever, No chills Respiratory: No cough, No shortness of breath Cardiac: No chest pain Abdomen: + pain, + nausea, + vomiting, + GI bleeding, No diarrhea Skin: No rash, No itch, No jaundice Physical Exam Date Time Temp Pulse Resp B/P (MAP) Pulse Ox O2 Delivery O2 Flow Rate FiO2 11/23/17 15:11 77 18 126/58 98 Room Air 11/23/17 14:17 72 20 128/56 99 Room Air 11/23/17 13:15 72 20 111/49 99 Room Air 11/23/17 12:24 68 20 108/48 100 11/23/17 11:37 71 18 91/40 99 Room Air 11/23/17 10:40 36.7 74 18 105/62 98 Room Air General Appearance: WD/WN, no apparent distress Eyes: normal inspection, PERRL, EOMI Neck: supple, no JVD, trachea midline Respiratory/Chest: normal breath sounds, no respiratory distress, no accessory muscle use Cardiovascular: regular rate, rhythm, no gallop, no murmur Abdomen: normal bowel sounds, soft, + tenderness (mid abd ), + pertinent finding (Rectal exam: + non thrombosed ext hemorrhoids, no fissure, internal exam: [place] colored stools, + hemorrhoids felt. ) Extremities: normal inspection, no pedal edema, no calf tenderness Neurologic/Psych: alert, normal mood/affect, oriented x 3 Skin: normal color, no jaundice, no rash Laboratory Results Last 24 Hours Test 11/23/17 11:25 11/23/17 11:30 11/23/17 15:04 Urine Color YELLOW Urine Appearance CLEAR Urine pH 6.0 Urine Specific [place] 1.020 Urine Protein NEG Urine Glucose (UA) NEG Urine Ketones NEG Urine Occult Blood NEG Urine Nitrite NEG Urine Bilirubin NEG Urine Urobilinogen NEG Urine Leukocyte Esterase NEG White Blood Count 10.68 K/uL Red Blood Count 2.95 M/uL Hemoglobin 9.1 g/dL Hematocrit 26.8 % Mean Corpuscular Volume 90.8 fL Mean Corpuscular Hemoglobin 30.8 pg Mean Corpuscular Hemoglobin Concent 34.0 g/dl Platelet Count 154 K/uL Mean Platelet Volume 9.0 fL Neutrophils (%) (Auto) 61.9 % Lymphocytes (%) (Auto) 26.3 % Monocytes (%) (Auto) 9.4 % Eosinophils (%) (Auto) 1.8 % Basophils (%) (Auto) 0.3 % Neutrophils # (Auto) 6.62 K/uL Lymphocytes # (Auto) 2.81 K/uL Monocytes # (Auto) 1.00 K/uL Eosinophils # (Auto) 0.19 K/uL Basophils # (Auto) 0.03 K/uL RDW Standard Deviation 49.4 fL RDW Coefficient of Variation 14.8 % Immature Granulocyte % (Auto) 0.3 % Immature Granulocyte # (Auto) 0.03 K/uL Sodium Level 126 mmol/L Potassium Level 3.5 mmol/L Chloride Level 95 mmol/L Carbon Dioxide Level 22 mmol/L Anion Gap 9.0 mmol/L Blood Urea Nitrogen 14 mg/dl Creatinine 0.89 mg/dl Est Creatinine Clear Calc Drug Dose 76.9 ml/min Estimated GFR () 86.4 Estimated GFR (Non- 74.5 BUN/Creatinine Ratio 15.7 Random Glucose 56 mg/dl Calcium Level 8.4 mg/dl Total Bilirubin 1.8 mg/dl Direct Bilirubin 0.8 mg/dl Aspartate Amino Transf (AST/SGOT) 60 U/L Alanine Aminotransferase (ALT/SGPT) 39 U/L Alkaline Phosphatase 68 U/L Total Creatine Kinase 229 U/L Total Protein 7.1 gm/dl Albumin 3.2 gm/dl Lipase 120 U/L Bedside Glucose 95 mg/dl Impression Patient is a 52 year old female w hx of ETOH cirrhosis who presented to ED w c/ o rectal bleeding x 4 days and hyponatremia. Initially blood is bright red, now dark, [place]. H/H similar to baseline, no signs of BUN elevation and she denies any hematemesis, coffee ground emesis. + portal HTN and upper abd varices , no esophageal varices during last EGD 07/2017. Doubt she has a variceal bleed but given maroon blood and upper abd varices, will cover her to treat as possible UGI bleed. Other DDX: diverticular bleed, hemorrhoids, infectious source. Her baseline MELD is 12. Cannot calculate MELD now since PT/INR pending. Plan - Monitor H/H and transfuse prn - Check INR and correct with Vit K if >1.5 - CL diet; then NPO after midnight. - Plan for EGD/Colonoscopy evals tomorrow. Bowel prep ordered - PPI bolus and gtt - Octreotide bolus and gtt - Ceftriaxone 1g q24hr to cover for potential SBP if having variceal bleed - Hold diuretics. - Check stool cx and Cdiff ATTESTATION: I have performed a history and physical examination of this patient and reviewed the electronic record. Specifically on physical examination there is no abdominal tenderness. I have discussed the case with KIRA Eaton. The above note reflects my findings, conclusions, and recommendations. Marck Rodriguez MD
--- NOTE | 2017-11-23 16:59 | History and Physical ---
History & Physical Date & Time of Service: Nov 23, 2017 ~ 15:15 Chief Complaint: Rectal bleeding Primary Care Physician: Rangel Crane D.O. History of Present Illness 52-year-old female who presents the ED with rectal bleeding. Patient reports her symptoms began 3 days ago. She reports she initially had some bright red bleeding per rectum and then she had some dark, almost black, blood surrounded by bright red blood with associated diarrhea. She reports nausea and vomiting. She describes emesis as undigested food. She denies hematemesis and coffee- ground emesis. She has been having lower abdominal cramping. She reports chills which are chronic for her. No fevers. She has some occasional lightheadedness but denies any dizziness or syncopal events. She denies chest pain or shortness of breath. No urinary symptoms. In the ED, patient's hemoglobin is 9.1 (baseline runs around 10) and she is hyponatremic with sodium of 126. She is hemodynamically stable. She was given IVF, IV Zofran, IV morphine, and given a Protonix bolus. Past Medical/Surgical History Medical Problems: (1) Alcoholic cirrhosis Status: Chronic (2) Anemia, chronic disease Status: Chronic (3) Anxiety Status: Chronic (4) Asthma Status: Chronic (5) Bipolar 1 disorder Status: Chronic (6) H/O alcohol abuse Status: Chronic (7) HTN, goal below 140/90 Status: Chronic (8) Hx of migraines Status: Chronic (9) Sleep apnea Status: Chronic (10) Tobacco use disorder Status: Chronic Surgical Problems: (1) History of back surgery Status: Chronic (2) History of total right knee replacement Status: Chronic (3) S/P cholecystectomy Status: Chronic (4) S/P tubal ligation Status: Chronic Family History Diabetes mellitus SISTER FH: brain cancer FATHER Hodgkin's lymphoma MOTHER Social History Smoking Status: Current Every Day Smoker Alcohol Use: none (Former heavy use, sober since October 2016) Marital Status: Housing status: lives with family Immunizations History of Influenza Vaccine: Yes Influenza Vaccine Date: Jan 13, 2017 History of Tetanus Vaccine?: Yes Tetanus Immunization Date: Jul 24, 2007 History of Pneumococcal: Yes Pneumococcal Date: Jul 24, 2007 Allergies Coded Allergies: [place] (Verified Allergy, Severe, HIVES, 11/23/17) [place] Tar (Unverified Allergy, Mild, 11/23/17) BEE STING (Verified Allergy, Unknown, HIVES AND SWELLING, 11/23/17) POLLEN (Verified Allergy, Unknown, UNKNOWN, 11/23/17) Home Medications Scheduled Aspirin (Aspirin Chewable), 81 MG PO DAILY Budesonide/Formoterol Fumarate (Symbicort 160/4.5 Inhaler ), 2 PUFFS INH BID Dicyclomine Hcl (Bentyl), 20 MG PO BID Fluticasone Prop/Salmeterol (Advair Diskus 500/50 60 Dose), 1 PUFFS INH BID Fluticasone Propionate (Nasal) (Flonase Allergy Relief), 2 [place] DAILY Folic Acid (Folic Acid), 1 MG PO DAILY Furosemide (Lasix), 40 MG PO BID Hydroxyzine Hcl (Atarax), 25 MG PO NOON Lactulose (Chronulac), 60 ML PO QID Lamotrigine (Lamictal), 75 MG PO BID Losartan Potassium (Cozaar), 25 MG PO DAILY Lurasidone Hcl (Latuda), 20 MG PO BID Magnesium Oxide (Mag-Ox), 400 MG PO BID Montelukast Sodium (Singulair), 10 MG PO HS Multivitamin (Multivitamin), 1 TAB PO DAILY Pantoprazole (Protonix), 40 MG PO BID Potassium Chloride (Micro-K Ext Rel), 10 MEQ PO DAILY Rifaximin (Xifaxan), 1 TAB PO BID Spironolactone (Aldactone), 100 MG PO QAM Thiamine Hcl (Vitamin B-1), 100 MG PO DAILY Trazodone Hcl (Desyrel), 150 MG PO HS Scheduled PRN Acetaminophen (Tylenol), 500-1,000 MG PO BID PRN for Pain Albuterol Sulf (Proventil 0.083% 2.5MG/3ML), 2.5 MG INH q6-8 hrs PRN for Wheezing Furosemide (Lasix), 20 MG PO QAM PRN for fluid Ipratropium [place] (Atrovent 0.02% Soln), 1 VIAL INH Q6-8HRS PRN for SOB/ Wheezing Ondansetron Hcl (Zofran), 4 MG PO Q8 PRN for Nausea Potassium Chloride (Micro-K Ext Rel), 10 MEQ PO QAM PRN for with extra lasix Review of Systems ROS per HPI, all other systems reviewed and negative Physical Exam Vital Signs Date Time Temp Pulse Resp B/P (MAP) Pulse Ox O2 Delivery O2 Flow Rate FiO2 11/23/17 15:11 77 18 126/58 98 Room Air 11/23/17 14:17 72 20 128/56 99 Room Air 11/23/17 13:15 72 20 111/49 99 Room Air 11/23/17 12:24 68 20 108/48 100 11/23/17 11:37 71 18 91/40 99 Room Air 11/23/17 10:40 36.7 74 18 105/62 98 Room Air General Appearance: WD/WN, no apparent distress Head: normocephalic, atraumatic Eyes: normal inspection, EOMI, sclerae normal ENT: hearing grossly normal, + pertinent finding (Mucous membranes moist) Neck: supple, no JVD, trachea midline Respiratory/Chest: lungs clear, normal breath sounds, no respiratory distress Cardiovascular: regular rate, rhythm, no edema, normal peripheral pulses Abdomen/GI: soft, no organomegaly, + tenderness (Mild, lower abdomen), + abnormal bowel sounds (Hyperactive) Extremities/Musculoskelatal: normal inspection, no calf tenderness, normal capillary refill Neurologic/Psych: no motor/sensory deficits, alert, normal mood/affect, oriented x 3 Skin: normal color, warm/dry Diagnostics Laboratory Results Results Past 24 Hours Test 11/23/17 11:25 11/23/17 11:30 11/23/17 15:04 Range/Units Urine Color YELLOW Urine Appearance CLEAR CLEAR Urine pH 6.0 4.5-7.5 Urine Specific [place] 1.020 1.000-1.030 Urine Protein NEG NEG Urine Glucose (UA) NEG NEG Urine Ketones NEG NEG Urine Occult Blood NEG NEG Urine Nitrite NEG NEG Urine Bilirubin NEG NEG Urine Urobilinogen NEG NEG Urine Leukocyte Esterase NEG NEG White Blood Count 10.68 4.8-10.8 K/uL Red Blood Count 2.95 4.2-5.4 M/uL Hemoglobin 9.1 12.0-16.0 g/dL Hematocrit 26.8 37-47 % Mean Corpuscular Volume 90.8 80-100 fL Mean Corpuscular Hemoglobin 30.8 25-34 pg Mean Corpuscular Hemoglobin Concent 34.0 32-36 g/dl Platelet Count 154 130-400 K/uL Mean Platelet Volume 9.0 7.4-10.4 fL Neutrophils (%) (Auto) 61.9 % Lymphocytes (%) (Auto) 26.3 % Monocytes (%) (Auto) 9.4 % Eosinophils (%) (Auto) 1.8 % Basophils (%) (Auto) 0.3 % Neutrophils # (Auto) 6.62 1.4-6.5 K/uL Lymphocytes # (Auto) 2.81 1.2-3.4 K/uL Monocytes # (Auto) 1.00 0.11-0.59 K/uL Eosinophils # (Auto) 0.19 0-0.5 K/uL Basophils # (Auto) 0.03 0-0.2 K/uL RDW Standard Deviation 49.4 36.4-46.3 fL RDW Coefficient of Variation 14.8 11.5-14.5 % Immature Granulocyte % (Auto) 0.3 % Immature Granulocyte # (Auto) 0.03 0.00-0.02 K/uL Sodium Level 126 136-145 mmol/L Potassium Level 3.5 3.5-5.1 mmol/L Chloride Level 95 98-107 mmol/L Carbon Dioxide Level 22 21-32 mmol/L Anion Gap 9.0 3-11 mmol/L Blood Urea Nitrogen 14 7-18 mg/dl Creatinine 0.89 0.60-1.20 mg/dl Est Creatinine Clear Calc Drug Dose 76.9 ml/min Estimated GFR () 86.4 Estimated GFR (Non- 74.5 BUN/Creatinine Ratio 15.7 10-20 Random Glucose 56 70-99 mg/dl Calcium Level 8.4 8.5-10.1 mg/dl Total Bilirubin 1.8 0.2-1 mg/dl Direct Bilirubin 0.8 0-0.2 mg/dl Aspartate Amino Transf (AST/SGOT) 60 15-37 U/L Alanine Aminotransferase (ALT/SGPT) 39 12-78 U/L Alkaline Phosphatase 68 45-117 U/L Total Creatine Kinase 229 26-192 U/L Total Protein 7.1 6.4-8.2 gm/dl Albumin 3.2 3.4-5.0 gm/dl Lipase 120 73-393 U/L Bedside Glucose 95 70-90 mg/dl Microbiology Results 11/23/17 C.difficile Toxin B Gene (PCR) - Final, Complete No C. difficile toxin B gene detected 11/23/17 Shiga Toxin Test, Received Pending 11/23/17 Stool Culture, Received Pending 11/23/17 WBC Smear, Received Pending Diagnostic Radiology CT ABD/PELVIS IMPRESSION: 1. No acute process within the abdomen or pelvis. 2. Moderate abdominal varices. Liver not overtly cirrhotic by CT however the varices suggest portal hypertension statistically due to liver disease. 3. Moderate biliary ductal dilatation. This is likely related to previous cholecystectomy however could be correlated with obstructive liver function tests. 4. Mild cecal distention without evidence for a bowel obstruction. Impression Assessment and Plan GI BLEED HISTORY OF ALCOHOLIC CIRRHOSIS -Admit to [facility] -Patient presenting with bright red and dark red blood per rectum 3 days; in the ED, hemoglobin 9.1 (baseline runs around 10) -Patient is hemodynamically stable -EGD 07/2017 - portal hypertensive gastropathy; colonoscopy 08/2016 - internal hemorrhoids, diverticulosis of the sigmoid colon -CT ABD/pelvis negative for acute findings however did show moderate abdominal varices -Serial H&H; supportive care with IVF -Check stool studies -Continue Xifaxan however hold lactulose due to diarrhea; hold diuretics as well due to GI bleeding and hyponatremia -? Internal hemorrhoid bleed vs. diverticular bleed vs. variceal bleed -Case discussed with KIRA Eaton; will place patient on Protonix and octreotide drips, empiric ceftriaxone for SBP, plan for EGD and colonoscopy tomorrow HYPONATREMIA -Likely due to dehydration from GI bleeding in combination with use of diuretics -Check urine and serum osmolality, urine sodium, urine creatinine -S/P 1 liter NSS in the ER; continue with NSS at 80 cc an hour and recheck sodium at 1900 HYPERTENSION -BP controlled, continue losartan BIPOLAR, DEPRESSION -Continue home meds ASTHMA -No signs of acute exacerbation, continue home inhalers DVT PROPHYLAXIS -SCDs due to GI bleeding DISPOSITION -In my clinical judgment this beneficiary meets acute admission criteria, established by [facility], that includes being hospitalized through two midnights. ADDENDUM: This is a 52 year old female with a past medical history of liver cirrhosis and recurrent ascites, bipolar/depression - presents with some blood in her stool. States she had a few bright red bloody stools; then became dark. She has no dizziness, no chest pain/shortness of breath Abdominal cramping is present, but no nausea/vomiting - no fluid build-up. Plan: appreciate GI input will start PPI drip, Octreotide and Rocephin plan for endoscopy and colonoscopy on 11/24 Resuscitation Status VTE Prophylaxis Will order VTE Prophylaxis: Yes
[2017-11-23] MEDS ORDERED: POLYETHYLENE (MIRALAX) 17 GM PACK PO ONE ×2 (17:00→21:00)
[2017-11-23] MEDS ORDERED: BISACODYL 5 MG TABEC PO ONE (17:00)
[2017-11-23 17:02] LABS: INR 1.3 (0.9-1.1)
[2017-11-23] MEDS ORDERED: OCTREOTIDE ACETATE INJ 100 MCG in SYR 9 ML PHA PREPARED IV SCH (17:30)
[2017-11-23 17:41] VITALS: O2SAT 99; Ht 165.1 cm; Wt 79.3 kg
[2017-11-23] MEDS: OCTREOTIDE ACETATE INJ 500 MCG in NSS 100ML IV SCH (18:05)
[2017-11-23] MEDS: PANTOprazole INJ 40 MG in DEXTROSE 5% 100ML IV SCH ×2 (18:06→22:30)
[2017-11-23] MEDS: SODIUM CHLORIDE 0.9% 1000ML 1,000 ML IV SCH (18:06)
[2017-11-23] MEDS: CEFTRIAXONE SOD INJ 1,000 MG in DEXTROSE 5% 50ML 50 ML IV SCH (18:11)
[2017-11-23 19:50] LABS: HEMATOCRIT 21.6 % (37-47); HEMOGLOBIN 7.6 g/dL (12.0-16.0)
--- NOTE | 2017-11-23 20:05 | EMERGENCY ROOM VISIT NOTE ---
History First contact with patient: 11:02 Chief Complaint: RECTAL BLEEDING Stated Complaint: BLOOD IN STOOL, DISCOLORED Nursing Triage Summary: Relates that she has had rectal bleeding for two days. She relates that she sees both black and bright red. She relates vomiting "when I eat". She relates belly cramping. Takes a daily aspirin. History of Present Illness The patient is a 52 year old female who presents to the Emergency Room with complaints of DrOzzie rectal bleeding, abdominal cramping, nausea, vomiting and loose stools. The patient reports that she had some rectal bleeding approximately 3 days ago. She has a history of internal hemorrhoids, and thought that it was hemorrhoids developing. She reports that the stool was dark , almost black in appearance. Within 24 hours, she then started to get abdominal cramping, nausea and vomiting. The patient reports that she usually gets nausea and vomiting shortly after eating breakfast and dinner. She has decreased her fluid and food intake because of the nausea. She does have nausea medicine at home, but does not recall the name of it. The patient denies any recent illness or antibiotic use. She reports a history of chronic liver disease. She does take a baby aspirin daily. She denies EtOH use. She drinks less than a cup of coffee daily because it can upset her stomach. The patient did have a colonoscopy approximately 1 year ago by a [facility] grooming salon manager. She reports that she has "a pouch". The patient and daughter does not know if it is diverticulosis or a polyp. The patient denies history of GI bleed or peptic ulcer disease. The patient does report mild discomfort radiating into the lower back as well. She denies any urinary symptoms or history of constipation. She currently rates her discomfort a 5 out of 10. Review of Systems HEENT: Denies dizziness, visual problems, hearing loss, tinnitus. Denies difficulty swallowing or oral lesions. PULMONARY: Denies cough, shortness of breath, sputum production or hemoptysis. CARDIOVASCULAR: Denies chest pain, palpitations, dyspnea on exertion, orthopnea or peripheral edema. GASTROINTESTINAL: See HPI. GENITOURINARY: Denies dysuria, frequency, urgency or nocturia. NEUROLOGIC: Denies history of epilepsy, CVA, TIA or chronic headaches. MUSCULOSKELETAL: Denies history of joint tenderness/swelling. SKIN: Denies rashes or lesions. PSYCHIATRIC: History of bipolar disorder. ENDOCRINE: Denies history of diabetes or thyroid disorders. Past Medical/Surgical History Medical Problems: (1) Alcoholic cirrhosis (2) Anemia, chronic disease (3) Anxiety (4) Asthma (5) Bipolar 1 disorder (6) H/O alcohol abuse (7) HTN, goal below 140/90 (8) Hx of migraines (9) Sleep apnea (10) Tobacco use disorder Surgical Problems: (1) History of back surgery (2) History of total right knee replacement (3) S/P cholecystectomy (4) S/P tubal ligation Family History Diabetes mellitus SISTER FH: brain cancer FATHER Hodgkin's lymphoma MOTHER Social History Smoking Status: Current Every Day Smoker Alcohol Use: other Drug Use: none Marital Status: Housing Status: lives with family Current/Historical Medications Scheduled Aspirin (Aspirin Chewable), 81 MG PO DAILY Budesonide/Formoterol Fumarate (Symbicort 160/4.5 Inhaler ), 2 PUFFS INH BID Dicyclomine Hcl (Bentyl), 20 MG PO BID Fluticasone Prop/Salmeterol (Advair Diskus 500/50 60 Dose), 1 PUFFS INH BID Fluticasone Propionate (Nasal) (Flonase Allergy Relief), 2 [place] DAILY Folic Acid (Folic Acid), 1 MG PO DAILY Furosemide (Lasix), 40 MG PO BID Hydroxyzine Hcl (Atarax), 25 MG PO NOON Lactulose (Chronulac), 60 ML PO QID Lamotrigine (Lamictal), 75 MG PO BID Losartan Potassium (Cozaar), 25 MG PO DAILY Lurasidone Hcl (Latuda), 20 MG PO BID Magnesium Oxide (Mag-Ox), 400 MG PO BID Montelukast Sodium (Singulair), 10 MG PO HS Multivitamin (Multivitamin), 1 TAB PO DAILY Pantoprazole (Protonix), 40 MG PO BID Potassium Chloride (Micro-K Ext Rel), 10 MEQ PO DAILY Rifaximin (Xifaxan), 1 TAB PO BID Spironolactone (Aldactone), 100 MG PO QAM Thiamine Hcl (Vitamin B-1), 100 MG PO DAILY Trazodone Hcl (Desyrel), 150 MG PO HS Scheduled PRN Acetaminophen (Tylenol), 500-1,000 MG PO BID PRN for Pain Albuterol Sulf (Proventil 0.083% 2.5MG/3ML), 2.5 MG INH q6-8 hrs PRN for Wheezing Furosemide (Lasix), 20 MG PO QAM PRN for fluid Ipratropium [place] (Atrovent 0.02% Soln), 1 VIAL INH Q6-8HRS PRN for SOB/ Wheezing Ondansetron Hcl (Zofran), 4 MG PO Q8 PRN for Nausea Potassium Chloride (Micro-K Ext Rel), 10 MEQ PO QAM PRN for with extra lasix Physical Exam Vital Signs Date Time Temp Pulse Resp B/P (MAP) Pulse Ox O2 Delivery O2 Flow Rate FiO2 11/23/17 15:11 77 18 126/58 98 Room Air 11/23/17 14:17 72 20 128/56 99 Room Air 11/23/17 13:15 72 20 111/49 99 Room Air 11/23/17 12:24 68 20 108/48 100 11/23/17 11:37 71 18 91/40 99 Room Air 11/23/17 10:40 36.7 74 18 105/62 98 Room Air Physical Exam CONSTITUTIONAL: Healthy and well nourished. Alert and oriented X 3 with positive affect. Patient does not appear acutely ill or toxic. HEENT: Normocephalic, atraumatic. Pupils equal, round and reactive. Ears and nares are clear. No scleral icterus or conjunctival injection/pallor. NECK: Full active range of motion without discomfort. No JVD or carotid bruits. RESPIRATORY: Clear to auscultation bilaterally with no wheezing, crackles, rhonchi or stridor. CARDIOVASCULAR: Regular rate and rhythm with no murmurs, rubs or gallops. GASTROINTESTINAL: Bowel sounds present in all quadrants. Patient has generalized lower abdominal tenderness to palpation. No obvious hepatosplenomegaly. Negative CVA tenderness. Negative McBurney's point tenderness. Negative Rovsing sign. Negative heel tap. MUSCULOSKELETAL: Full range of motion of all joints without discomfort. INTEGUMENTARY: No rash or other significant dermatologic conditions noted. HEMATOLOGIC: No ecchymosis or petechiae noted. NEUROLOGIC: No focal neurologic deficits noted. Medical Decision & Procedures ER Provider Diagnostic Interpretation: My interpretation of the CT of the abdomen and pelvis with IV and oral contrast does not show any evidence for diverticulitis, bowel obstruction or free air. Additional findings are shown in the following radiologist report: CT OF THE ABDOMEN AND PELVIS WITH CONTRAST CLINICAL HISTORY: Abdominal pain. GI bleed. COMPARISON STUDY: CT of the abdomen and pelvis December 07, 2016 and abdominal series July 10, 2017. TECHNIQUE: Following IV administration of 120 mL of Optiray-320, axial images of the abdomen and pelvis were obtained from the lung bases to the proximal femurs. Images were reviewed in the axial, sagittal, and coronal planes. IV contrast was administered without complication. A dose lowering technique was utilized adhering to the principles of ALARA. Oral contrast was administered. CT DOSE: 447.02 mGy.cm FINDINGS: Lung bases are clear. Biliary ductal dilatation has slightly increased since exam of December 07, 2016. There is no pancreatic ductal dilatation or peripancreatic infiltration. There are calcified granulomas within the spleen. The adrenal glands, kidneys and pancreas are normal. Postoperative findings within the lumbar spine are noted. No pneumatosis, free air or portal venous gas is present. Moderate upper abdominal varices, predominantly retroperitoneal in location, are noted. The size of the spleen is at the upper limits of normal. No hepatic lesions are identified. The liver is not overtly cirrhotic by CT. However, these findings suggest portal hypertension. There is no ascites. There is no evidence for a bowel obstruction. There is mild dilatation of the cecum. The appendix is normal. Sensitivity for detection mucosal lesions is diminished given CT technique. IMPRESSION: 1. No acute process within the abdomen or pelvis. 2. Moderate abdominal varices. Liver not overtly cirrhotic by CT however the varices suggest portal hypertension statistically due to liver disease. 3. Moderate biliary ductal dilatation. This is likely related to previous cholecystectomy however could be correlated with obstructive liver function tests. 4. Mild cecal distention without evidence for a bowel obstruction. Laboratory Results 11/23/17 11:30 Red Blood Count 2.95, Mean Corpuscular Volume 90.8, Mean Corpuscular Hemoglobin 30.8, Mean Corpuscular Hemoglobin Concent 34.0, Mean Platelet Volume 9.0, Neutrophils (%) (Auto) 61.9, Lymphocytes (%) (Auto) 26.3, Monocytes (%) (Auto) 9.4, Eosinophils (%) (Auto) 1.8, Basophils (%) (Auto) 0.3, Neutrophils # (Auto) 6.62, Lymphocytes # (Auto) 2.81, Monocytes # (Auto) 1.00, Eosinophils # (Auto) 0.19, Basophils # (Auto) 0.03 Test 11/23/17 11:25 11/23/17 11:30 11/23/17 15:04 Urine Color YELLOW Urine Appearance CLEAR (CLEAR) Urine pH 6.0 (4.5-7.5) Urine Specific [place] 1.020 (1.000-1.030) Urine Protein NEG (NEG) Urine Glucose (UA) NEG (NEG) Urine Ketones NEG (NEG) Urine Occult Blood NEG (NEG) Urine Nitrite NEG (NEG) Urine Bilirubin NEG (NEG) Urine Urobilinogen NEG (NEG) Urine Leukocyte Esterase NEG (NEG) White Blood Count 10.68 K/uL (4.8-10.8) Red Blood Count 2.95 M/uL (4.2-5.4) Hemoglobin 9.1 g/dL (12.0-16.0) Hematocrit 26.8 % (37-47) Mean Corpuscular Volume 90.8 fL (80-100) Mean Corpuscular Hemoglobin 30.8 pg (25-34) Mean Corpuscular Hemoglobin Concent 34.0 g/dl (32-36) Platelet Count 154 K/uL (130-400) Mean Platelet Volume 9.0 fL (7.4-10.4) Neutrophils (%) (Auto) 61.9 % Lymphocytes (%) (Auto) 26.3 % Monocytes (%) (Auto) 9.4 % Eosinophils (%) (Auto) 1.8 % Basophils (%) (Auto) 0.3 % Neutrophils # (Auto) 6.62 K/uL (1.4-6.5) Lymphocytes # (Auto) 2.81 K/uL (1.2-3.4) Monocytes # (Auto) 1.00 K/uL (0.11-0.59) Eosinophils # (Auto) 0.19 K/uL (0-0.5) Basophils # (Auto) 0.03 K/uL (0-0.2) RDW Standard Deviation 49.4 fL (36.4-46.3) RDW Coefficient of Variation 14.8 % (11.5-14.5) Immature Granulocyte % (Auto) 0.3 % Immature Granulocyte # (Auto) 0.03 K/uL (0.00-0.02) Prothrombin Time 13.6 SECONDS (9.0-12.0) Prothromb Time International Ratio 1.3 (0.9-1.1) Est Creatinine Clear Calc Drug Dose 76.9 ml/min Osmolality 260 mOsm/kg (280-300) Total Bilirubin 1.8 mg/dl (0.2-1) Direct Bilirubin 0.8 mg/dl (0-0.2) Aspartate Amino Transf (AST/SGOT) 60 U/L (15-37) Alanine Aminotransferase (ALT/SGPT) 39 U/L (12-78) Alkaline Phosphatase 68 U/L (45-117) Total Creatine Kinase 229 U/L (26-192) Total Protein 7.1 gm/dl (6.4-8.2) Albumin 3.2 gm/dl (3.4-5.0) Lipase 120 U/L (73-393) Bedside Glucose 95 mg/dl (70-90) Date/Time Source Procedure Growth Status 11/23/17 13:20 Stool C.difficile Toxin B Gene (PCR) - Final No C. difficile toxin B gene detected Complete The above labs were reviewed. Sodium is 126. Hemoglobin 9.1. Glucose is 56. Urinalysis is unremarkable. Patient was able to produce liquidy stool that was Hemoccult positive. Stool cultures are pending. C. difficile screen was negative. Fecal smear was still pending at the time of dictation. Medications Administered Medications (Trade) Dose Ordered Sig/Horacio Route Start Time Stop Time Status Last Admin Dose Admin Sodium Chloride 1,000 ml @ 0 mls/hr Q0M STAT IV 11/23/17 11:16 11/23/17 11:20 DC 11/23/17 11:30 999 MLS/HR Ondansetron HCl (Zofran Inj) 4 mg NOW STAT IV 11/23/17 11:16 11/23/17 11:20 DC 11/23/17 11:32 4 MG Morphine Sulfate (MoRPHine SULFATE INJ) 4 mg NOW STAT IV 11/23/17 11:16 11/23/17 11:20 DC 11/23/17 11:33 4 MG Morphine Sulfate (MoRPHine SULFATE INJ) 4 mg NOW STAT IV 11/23/17 13:07 11/23/17 13:08 DC 11/23/17 13:26 4 MG Ondansetron HCl (Zofran Inj) 4 mg NOW STAT IV 11/23/17 15:04 11/23/17 15:06 DC 11/23/17 15:11 4 MG Pantoprazole Sodium 80 mg/ Dextrose 120 ml @ 400 mls/hr NOW IV 11/23/17 15:15 11/23/17 17:00 DC 11/23/17 16:43 400 MLS/HR ED Course Patient history and physical exam were performed. Nurse's notes were reviewed. Vital signs were reviewed and normal. The patient is not tachycardic or febrile. IV access was established, and labs were drawn. The patient was hydrated with a liter of normal saline. She was initially administered morphine 4 mg and Zofran 4 mg IVP. Review of labs shows hyponatremia with a sodium of 126. Hemoglobin is 9.1. Glucose was also low at 56. Review of trend shows that the patient's hemoglobin has been lower in the past. Her sodium and glucose are also all-time lows. The patient was administered an additional morphine 4 mg IVP prior to CT of the abdomen and pelvis, which showed no evidence for acute diverticulitis, appendicitis, bowel obstruction or perforation. Additional findings are discussed in the previous Diagnostic Interpretation section. Findings were discussed with Dr. Garibay, ED attending physician, who recommended hospitalist evaluation. The case was further discussed with the hospitalist service, who will be admitting the patient for further management. The patient denied any significant pain or nausea at the time of transfer of care. Medical Decision Patient presents with complaint of rectal bleeding and abdominal cramping. Laboratory studies today does show that she is anemic, likely from the rectal bleeding. She is also hyponatremic and hypoglycemic. Patient does have chronic elevated bilirubin levels from her liver disease. Medication Reconcilliation Current Medication List: was personally reviewed by ms Blood Pressure Screening Patient's blood pressure: Normal blood pressure Impression Primary Impression: GI bleed Additional Impression: Anemia Departure Information Referrals Rangel Crane D.O. (PCP) Patient Instructions My [facility] Problem Qualifiers
[2017-11-23 20:15] LABS: CALCIUM 7.5 mg/dl (8.5-10.1); CREATININE 0.83 mg/dl (0.60-1.20); POTASSIUM 3.8 mmol/L (3.5-5.1)
[2017-11-23] MEDS: DICYCLOMINE HCL 20 MG TAB PO SCH (20:26)
[2017-11-23] MEDS: FLUTICASONE/SALMETEROL (ADVAIR) 500/50 INH 14 PUFF INH SCH (20:26)
[2017-11-23] MEDS: BUDESONIDE/FORMOTEROL FUMARATE 160/4.5 60 PUFFS/INHALER INH SCH (20:26)
[2017-11-23] MEDS: MAGNESIUM OXIDE 400 MG TAB PO SCH (20:27)
[2017-11-23] MEDS: MONTELUKAST SOD 10 MG TAB PO SCH (20:27)
[2017-11-23] MEDS: RIFAXIMIN TAB 550 MG TAB PO SCH (20:28)
[2017-11-23] MEDS: TRAZODONE HCL 50 MG TAB PO SCH (20:28)
[2017-11-23] MEDS: LURASIDONE HCL 40 MG TAB PO SCH (20:33)
[2017-11-24] VITALS (16 sets, daily range): BP systolic 93–129; BP diastolic 41–68; PULSE 71–82; TEMP 36.6–37.2; O2SAT 94–100
[2017-11-24 03:31] LABS: HEMATOCRIT 19.5 % (37-47); HEMOGLOBIN 6.9 g/dL (12.0-16.0); MEAN CELL VOLUME 90.3 fL (80-100); MEAN CORPUSCULAR HEMOGLOBIN 31.9 pg (25-34); MEAN CORPUSCULAR HGB CONC 35.4 g/dl (32-36); MEAN PLATELET VOLUME 9.1 fL (7.4-10.4); PLATELET COUNT 113 K/uL (130-400); RED CELL DISTRIBUTION WIDTH CV 14.8 % (11.5-14.5); WHITE BLOOD COUNT 6.75 K/uL (4.8-10.8)
[2017-11-24 04:00] LABS: ALBUMIN 2.6 gm/dl (3.4-5.0); CALCIUM 7.4 mg/dl (8.5-10.1); CREATININE 0.64 mg/dl (0.60-1.20); POTASSIUM 3.9 mmol/L (3.5-5.1); TOTAL PROTEIN 5.8 gm/dl (6.4-8.2)
[2017-11-24] MEDS: PANTOprazole INJ 40 MG in DEXTROSE 5% 100ML IV SCH ×2 (04:39→08:49)
[2017-11-24] MEDS: OCTREOTIDE ACETATE INJ 500 MCG in NSS 100ML IV SCH (05:15)
[2017-11-24] MEDS: SODIUM CHLORIDE 0.9% 1000ML 1,000 ML IV SCH ×2 (05:17→16:06)
[2017-11-24] MEDS ORDERED: FUROSEMIDE INJ 20 MG in SYRINGE 0 ML IV SCH (06:30)
[2017-11-24 08:31] LABS: CREATININE RANDOM URINE 24.6 mg/dl
[2017-11-24] MEDS: BUDESONIDE/FORMOTEROL FUMARATE 160/4.5 60 PUFFS/INHALER INH SCH ×2 (08:49→20:22)
[2017-11-24] MEDS: FLUTICASONE/SALMETEROL (ADVAIR) 500/50 INH 14 PUFF INH SCH ×2 (08:49→20:22)
[2017-11-24] MEDS: MAGNESIUM OXIDE 400 MG TAB PO SCH ×2 (09:00→20:27)
[2017-11-24] MEDS ORDERED: PROPOFOL IV EMULSION 10 MG/ML 20 ML VIAL ONE ×3 (10:24→11:21)
[2017-11-24] MEDS ORDERED: LIDOCAINE HCL 2% 2 ML VIAL (20MG/ML) ONE ×2 (10:24)
--- NOTE | 2017-11-24 10:33 | History & Physical Bridge Note ---
H&P Re-Evaluation Bridge Note: I have examined the patient, reviewed the History & Physical and in the interval since the performance of the History & Physical I have noted the following changes of clinical significance: No changes noted
--- NOTE | 2017-11-24 10:58 | GI REPORT ---
Patient Name: Marcia Mcgowan Procedure Date: 11/24/2017 10:31 AM Date of : 1965 Admit Type: Inpatient Age: 52 Gender: Female Attending MD: Marck Rodriguez MD Procedure: Upper GI endoscopy Providers: Marck Rodriguez MD Referring MD: Flaco Zapata Indications: Hematochezia Medicines: Propofol per Anesthesia Complications: No immediate complications. Estimated blood loss: None. Estimated Blood Loss: Estimated blood loss: none. Procedure: Pre-Anesthesia Assessment: - Prior to the procedure, a History and Physical was performed, and patient medications, allergies and sensitivities were reviewed. The patient's tolerance of previous anesthesia was reviewed. - ASA Grade Assessment: III - A patient with severe systemic disease. After obtaining informed consent, the endoscope was passed under direct vision. Throughout the procedure, the patient's blood pressure, pulse, and oxygen saturations were monitored continuously. The scope was introduced through the mouth, and advanced to the third part of duodenum. The upper GI endoscopy was accomplished with ease. The patient tolerated the procedure well. Findings: The upper third of the esophagus, middle third of the esophagus and lower third of the esophagus were normal. LA Grade C (one or more mucosal breaks continuous between tops of 2 or more mucosal folds, less than 75% circumference) esophagitis with no bleeding was found at the gastroesophageal junction. A small hiatal hernia was present. The entire examined stomach was normal. The examined duodenum was normal. No evidence of recent upper GI hemorrhage. Impression: - Normal upper third of esophagus, middle third of esophagus and lower third of esophagus. - LA Grade C esophagitis. - Small hiatal hernia. - Normal stomach. - Normal examined duodenum. - No specimens collected. Recommendation: - Perform a colonoscopy today. Marck Rodriguez M.D. Marck Rodriguez MD 11/24/2017 10:57:46 AM This report has been signed electronically. Note Initiated On: 11/24/2017 10:31 AM Number of Addenda: 0 I attest to the content of the Intraoperative Record and orders documented therein, exceptions below {[id number]}
--- NOTE | 2017-11-24 11:21 | GI REPORT ---
Patient Name: Marcia Mcgowan Procedure Date: 11/24/2017 10:33 AM Date of : 1965 Admit Type: Inpatient Age: 52 Gender: Female Attending MD: Marck Rodriguez MD Procedure: Colonoscopy Providers: Marck Rodriguez MD Referring MD: Flaco Zapata Indications: Hematochezia Medicines: Propofol per Anesthesia Complications: No immediate complications. Estimated blood loss: None. Estimated Blood Loss: Estimated blood loss: none. Procedure: Pre-Anesthesia Assessment: - Prior to the procedure, a History and Physical was performed, and patient medications, allergies and sensitivities were reviewed. The patient's tolerance of previous anesthesia was reviewed. - ASA Grade Assessment: III - A patient with severe systemic disease. After I obtained informed consent, the scope was passed under direct vision. Throughout the procedure, the patient's blood pressure, pulse, and oxygen saturations were monitored continuously. The scope was introduced through the anus and advanced to the terminal ileum, with identification of the appendiceal orifice and IC valve. The colonoscopy was performed without difficulty. The patient tolerated the procedure well. The quality of the bowel preparation was fair. Findings: Hematin (altered blood/eocaor-qcpvcp-mfcp material) was found in the entire colon. Multiple diverticula were found in the left colon. A 4 mm polyp was found in the rectum. The polyp was sessile. Anal papilla(e) were hypertrophied. Impression: - Preparation of the colon was fair. - Blood in the entire examined colon. - Diverticulosis in the left colon. - One 4 mm polyp in the rectum. - Anal papilla(e) were hypertrophied. - No specimens collected. Recommendation: - Return patient to hospital walls for ongoing care. Marck Rodriguez M.D. Marck Rodriguez MD 11/24/2017 11:20:52 AM This report has been signed electronically. Note Initiated On: 11/24/2017 10:33 AM Number of Addenda: 0 I attest to the content of the Intraoperative Record and orders documented therein, exceptions below {[id number]}
--- NOTE | 2017-11-24 11:59 | Anesthesiology Progress Note ---
Anesthesia Post Op Note Date & Time Nov 24, 2017 at 11:59 Vital Signs Pain Intensity: 4.0 Vital Signs Past 12 Hours Date Time Temp Pulse Resp B/P (MAP) Pulse Ox O2 Delivery O2 Flow Rate FiO2 11/24/17 11:58 75 20 111/52 (71) 98 Room Air 11/24/17 11:43 76 20 108/50 (69) 100 Room Air 11/24/17 11:28 36.7 78 16 108/51 (70) 100 Room Air 11/24/17 09:25 37.2 73 20 121/46 98 11/24/17 09:25 37.2 73 20 121/76 (91) 98 Room Air 11/24/17 08:25 36.8 71 18 112/63 96 11/24/17 08:00 Room Air 11/24/17 07:55 36.9 71 18 115/66 96 11/24/17 07:40 36.9 74 18 108/60 96 11/24/17 07:24 36.9 77 18 102/60 96 11/24/17 07:23 36.9 75 18 117/64 (81) 96 Room Air 11/24/17 00:05 Room Air 11/24/17 00:00 36.6 74 18 94/54 (67) 94 Room Air Notes Mental Status: alert / awake / arousable, participated in evaluation Pt Amnestic to Procedure: Yes Nausea / Vomiting: adequately controlled Pain: adequately controlled Airway Patency, RR, SpO2: stable & adequate BP & HR: stable & adequate Hydration State: stable & adequate Anesthetic Complications: no major complications apparent
[2017-11-24] MEDS: LURASIDONE HCL 40 MG TAB PO SCH ×2 (12:15→20:28)
[2017-11-24] MEDS: THIAMINE HCL 100 MG TAB PO SCH (12:16)
[2017-11-24] MEDS: hydrOXYzine HCL 25 MG TAB PO SCH (12:16)
[2017-11-24] MEDS: DICYCLOMINE HCL 20 MG TAB PO SCH ×2 (12:16→20:26)
[2017-11-24] MEDS: RIFAXIMIN TAB 550 MG TAB PO SCH ×2 (12:17→20:27)
[2017-11-24] MEDS: MULTIVITAMIN TAB PO SCH (12:17)
[2017-11-24] MEDS: LOSARTAN POTASSIUM 25 MG TAB PO SCH (12:17)
[2017-11-24] MEDS: NICOTINE 21 MG/24 HR TDSY TD SCH (12:18)
--- NOTE | 2017-11-24 12:49 | Clinical Documentation Query ---
CLINICAL DOCUMENTATION QUERY Dr. BROWN, In your clinical opinion is this patient being managed for: ( + ) Acute blood loss anemia ( ) Not Agree ( ) Other explanation of clinical findings (No explanation is considered a No Response) ( ) Unable to determine ( ) Need to Discuss (Phone CDS or qliq) (No discussion is considered a No Response) The medical record reflects the following clinical findings, treatment, and risk factors. Clinical Indicators: 52 yo female presenting with a GI bleed. Initial Hgb 9.1, Hct 26.8 which trended down to 6.9/19.5 Treatment:transfuse 2 U PRBC, IV fluids, IV protonix, IV sandostatin, GI consult, colonoscopy and EGD Risk Factors: GI bleed, alcoholic cirrhosis Please clarify and document your clinical opinion in the progress notes and discharge summary. Terms such as "probable", "suspected", "likely", "questionable", "possible", or "still to be ruled out" are acceptable. IF IN AGREEMENT, YOU MUST DOCUMENT ABOVE DIAGNOSTIC STATEMENT IN DAILY PROGRESS NOTES AND DISCHARGE SUMMARY. This document is not part of the patient's record. Thank You, Lo Fowler, RN [phone]
[2017-11-24 12:58] LABS: HEMATOCRIT 24.1 % (37-47); HEMOGLOBIN 8.3 g/dL (12.0-16.0)
[2017-11-24] MEDS: CEFTRIAXONE SOD INJ 1,000 MG in DEXTROSE 5% 50ML 50 ML IV SCH (18:57)
--- NOTE | 2017-11-24 19:08 | Progress Note ---
Internal Med Progress Note Date of Service: Nov 24, 2017. Provider Documentation: SUBJECTIVE: The patient was seen and examined in medical floor She was admitted yesterday with them lower GI bleed Status post EGD and colonoscopy today Likely has diverticular bleed Receiving blood transfusion now Monitor her for the next 24 hours so OBJECTIVE: Vital Signs-as noted below Exam: General-no apparent distress Eyes-normal ENT-normal Neck-supple Lungs-clear to auscultate bilaterally Heart-regular Abdomen-benign, mildly tender epigastrium Extremities-negative for any edema Neuro-alert, awake and oriented 3 Lab data as noted below. ASSESSMENT & PLAN: GI BLEED-Acute Diverticular bleed HISTORY OF ALCOHOLIC CIRRHOSIS -Admitted to [facility] -Patient presenting with bright red and dark red blood per rectum 3 days; in the ED, hemoglobin 9.1 (baseline runs around 10) -Patient is hemodynamically stable -EGD 07/2017 - portal hypertensive gastropathy; colonoscopy 08/2016 - internal hemorrhoids, diverticulosis of the sigmoid colon -Repeat EGD-Grade C Esophagitis and Colonoscopy-Blood in Colon-LIKELY Diverticular -CT ABD/pelvis negative for acute findings however did show moderate abdominal varices -Check stool studies-C Diff and Culture-Negative -Continue Xifaxan however hold lactulose due to diarrhea; hold diuretics as well due to GI bleeding and hyponatremia -Hb Dropped to 6/.9 -will receive 2 units of PRBC -clinically stable -Monitor H/H -If No more bleed and H/H remains stable for 24 hrs-will discharge HYPONATREMIA -Likely due to dehydration from GI bleeding in combination with use of diuretics -Check urine and serum osmolality, urine sodium, urine creatinine -S/P 1 liter NSS in the ER; continue with NSS at 80 cc an hour and recheck sodium at 1900 -improving 127 today HYPERTENSION -BP controlled, continue losartan BIPOLAR, DEPRESSION -Continue home meds ASTHMA -No signs of acute exacerbation, continue home inhalers DVT PROPHYLAXIS -SCDs due to GI bleeding DISPOSITION -In my clinical judgment this beneficiary meets acute admission criteria, established by [facility], that includes being hospitalized through two midnights. DISPOSITION Awaited Vital Signs: Date Time Temp Pulse Resp B/P (MAP) Pulse Ox O2 Delivery O2 Flow Rate FiO2 11/24/17 16:09 94 Room Air 11/24/17 15:15 36.7 77 18 128/63 94 11/24/17 14:15 36.8 82 18 127/63 99 11/24/17 13:45 36.9 79 16 121/61 99 11/24/17 13:15 36.9 75 18 121/68 98 11/24/17 13:00 36.8 77 18 129/63 100 11/24/17 12:43 36.6 75 18 120/58 11/24/17 12:16 36.6 76 18 128/67 (87) 99 Room Air 11/24/17 11:58 75 20 111/52 (71) 98 Room Air 11/24/17 11:43 76 20 108/50 (69) 100 Room Air 11/24/17 11:28 36.7 78 16 108/51 (70) 100 Room Air 11/24/17 09:25 37.2 73 20 121/46 98 11/24/17 09:25 37.2 73 20 121/76 (91) 98 Room Air 11/24/17 08:25 36.8 71 18 112/63 96 11/24/17 08:00 Room Air 11/24/17 07:55 36.9 71 18 115/66 96 11/24/17 07:40 36.9 74 18 108/60 96 11/24/17 07:24 36.9 77 18 102/60 96 11/24/17 07:23 36.9 75 18 117/64 (81) 96 Room Air 11/24/17 00:05 Room Air 11/24/17 00:00 36.6 74 18 94/54 (67) 94 Room Air Lab Results: Results Past 24 Hours Test 11/23/17 19:30 11/24/17 02:59 11/24/17 07:45 11/24/17 12:13 Range/Units Hemoglobin 7.6 6.9 12.0-16.0 g/dL Hematocrit 21.6 19.5 37-47 % Sodium Level 124 127 136-145 mmol/L Potassium Level 3.8 3.9 3.5-5.1 mmol/L Chloride Level 96 98 98-107 mmol/L Carbon Dioxide Level 19 21 21-32 mmol/L Anion Gap 9.0 8.0 3-11 mmol/L Blood Urea Nitrogen 11 10 7-18 mg/dl Creatinine 0.83 0.64 0.60-1.20 mg/dl Est Creatinine Clear Calc Drug Dose 82.5 107.0 ml/min Estimated GFR () 94.0 118.9 Estimated GFR (Non- 81.1 102.6 BUN/Creatinine Ratio 13.4 15.8 10-20 Random Glucose 248 90 70-99 mg/dl Calcium Level 7.5 7.4 8.5-10.1 mg/dl White Blood Count 6.75 4.8-10.8 K/uL Red Blood Count 2.16 4.2-5.4 M/uL Mean Corpuscular Volume 90.3 80-100 fL Mean Corpuscular Hemoglobin 31.9 25-34 pg Mean Corpuscular Hemoglobin Concent 35.4 32-36 g/dl RDW Standard Deviation 49.0 36.4-46.3 fL RDW Coefficient of Variation 14.8 11.5-14.5 % Platelet Count 113 130-400 K/uL Mean Platelet Volume 9.1 7.4-10.4 fL Total Bilirubin 1.6 0.2-1 mg/dl Aspartate Amino Transf (AST/SGOT) 51 15-37 U/L Alanine Aminotransferase (ALT/SGPT) 34 12-78 U/L Alkaline Phosphatase 64 45-117 U/L Total Protein 5.8 6.4-8.2 gm/dl Albumin 2.6 3.4-5.0 gm/dl Globulin 3.2 2.5-4.0 gm/dl Albumin/Globulin Ratio 0.8 0.9-2 Urine Osmolality 158 500-800 mOms/kg Urine Random Creatinine 24.6 mg/dl Urine Random Sodium 17 mEq/L Bedside Glucose 142 70-90 mg/dl Test 11/24/17 12:21 Range/Units Hemoglobin 8.3 12.0-16.0 g/dL Hematocrit 24.1 37-47 %
[2017-11-24] MEDS: TRAZODONE HCL 50 MG TAB PO SCH (20:27)
[2017-11-24] MEDS: MONTELUKAST SOD 10 MG TAB PO SCH (20:28)
[2017-11-24] MEDS: PANTOprazole SOD 40 MG TAB PO SCH (20:29)
[2017-11-25 00:05] VITALS: O2SAT 94
[2017-11-25 06:34] LABS: HEMATOCRIT 23.5 % (37-47); HEMOGLOBIN 8.1 g/dL (12.0-16.0); MEAN CELL VOLUME 91.1 fL (80-100); MEAN CORPUSCULAR HEMOGLOBIN 31.4 pg (25-34); MEAN CORPUSCULAR HGB CONC 34.5 g/dl (32-36); PLATELET COUNT 116 K/uL (130-400); RED CELL DISTRIBUTION WIDTH CV 15.6 % (11.5-14.5); RED CELL DISTRIBUTION WIDTH SD 51.8 fL (36.4-46.3); WHITE BLOOD COUNT 4.97 K/uL (4.8-10.8)
[2017-11-25] MEDS: SODIUM CHLORIDE 0.9% 1000ML 1,000 ML IV SCH (06:39)
[2017-11-25 07:11] LABS: CALCIUM 7.7 mg/dl (8.5-10.1); CREATININE 0.68 mg/dl (0.60-1.20)
[2017-11-25] MEDS: PANTOprazole SOD 40 MG TAB PO SCH ×2 (07:38→19:54)
[2017-11-25] MEDS: FLUTICASONE/SALMETEROL (ADVAIR) 500/50 INH 14 PUFF INH SCH ×2 (07:38→19:52)
[2017-11-25] MEDS: BUDESONIDE/FORMOTEROL FUMARATE 160/4.5 60 PUFFS/INHALER INH SCH ×2 (07:38→19:51)
[2017-11-25] MEDS: RIFAXIMIN TAB 550 MG TAB PO SCH ×2 (07:39→19:56)
[2017-11-25] MEDS: NICOTINE 21 MG/24 HR TDSY TD SCH (07:39)
[2017-11-25] MEDS: MULTIVITAMIN TAB PO SCH (07:40)
[2017-11-25] MEDS: MAGNESIUM OXIDE 400 MG TAB PO SCH ×2 (07:40→19:57)
[2017-11-25] MEDS: THIAMINE HCL 100 MG TAB PO SCH (07:40)
[2017-11-25 07:41] VITALS: BP 109/65; PULSE 69; TEMP 36.9; O2SAT 97
[2017-11-25] MEDS: LURASIDONE HCL 40 MG TAB PO SCH ×2 (07:41→19:56)
[2017-11-25] MEDS: LOSARTAN POTASSIUM 25 MG TAB PO SCH (07:42)
[2017-11-25] MEDS: DICYCLOMINE HCL 20 MG TAB PO SCH ×2 (07:42→19:53)
[2017-11-25] MEDS: hydrOXYzine HCL 25 MG TAB PO SCH (11:55)
--- NOTE | 2017-11-25 14:39 | GASTROENTEROLOGY PROGRESS NOTE ---
DATE: 11/25/2017 Gastroenterology progress note and cross coverage for [facility]. PATIENT'S AGE: 52. SEX: Female. RACE: . SUBJECTIVE: I had the pleasure of seeing Marcia Mcgowan at her bedside today. She is currently not having any evidence of overt GI bleeding. Nursing reported that she did have a dark brown bowel movement today, though no blood or melena was noted. The patient herself states that she is feeling better than her arrival. She denies any hematemesis. She further denies any lightheadedness or dizziness, chest pain, palpitations, shortness of breath, cough or abdominal pain at present. PHYSICAL EXAMINATION: VITAL SIGNS: Temp 36.9, pulse 69, respirations 17, blood pressure 109/65, pulse ox 97% on room air. GENERAL: She is awake, cooperative, chronic ill appearing, in no acute distress. CHEST: Clear to auscultation bilaterally. CARDIOVASCULAR SYSTEM: Regular rate and rhythm. ABDOMEN: Soft, nontender, nondistended. Positive bowel sounds. LABORATORY DATA: Laboratory studies include a white blood cell count of 4.97, hemoglobin 8.1, hematocrit 23.5 and a platelet count of 116. Sodium was 138, potassium 4.0, chloride 110, bicarbonate 19, BUN 5, creatinine 0.68. IMPRESSION: A 52-year-old female with history of alcohol-induced cirrhosis, presented with rectal bleeding who underwent upper endoscopy and colonoscopy by Dr. Rodriguez on 11/24 and was noted to have a negative EGD and hematin in colon with no obvious bleeding source. PLAN: If the patient continues to have any overt GI bleeding, consideration could be made to performing a tagged red blood cell scan to try to delineate a bleeding source as none was found on EGD or colonoscopy. I will continue her on her current regimen of Protonix 40 mg p.o. b.i.d. and I will follow her clinical course and make further recommendations as needed. Once again, thanks for allowing me to participate in the care of this patient. If you have any further questions, please do not hesitate in contacting me. FANTA
[2017-11-25 15:29] VITALS: BP 107/50; PULSE 87; TEMP 36.7; O2SAT 98
[2017-11-25] MEDS ORDERED: NURSING VERBAL MED ORDER ONE (16:45)
[2017-11-25] MEDS: CEFTRIAXONE SOD INJ 1,000 MG in DEXTROSE 5% 50ML 50 ML IV SCH (17:29)
[2017-11-25] MEDS: MONTELUKAST SOD 10 MG TAB PO SCH (19:53)
[2017-11-25] MEDS: TRAZODONE HCL 50 MG TAB PO SCH (19:56)
[2017-11-25 23:00] VITALS: BP 105/49; PULSE 79; TEMP 36.8; O2SAT 95
[2017-11-26 07:22] VITALS: BP 141/62; PULSE 81; TEMP 36.7; O2SAT 97
[2017-11-26] MEDS: BUDESONIDE/FORMOTEROL FUMARATE 160/4.5 60 PUFFS/INHALER INH SCH (07:54)
[2017-11-26] MEDS: FLUTICASONE/SALMETEROL (ADVAIR) 500/50 INH 14 PUFF INH SCH (07:54)
[2017-11-26] MEDS: MAGNESIUM OXIDE 400 MG TAB PO SCH (07:55)
[2017-11-26] MEDS: PANTOprazole SOD 40 MG TAB PO SCH (07:55)
[2017-11-26] MEDS: RIFAXIMIN TAB 550 MG TAB PO SCH (07:55)
[2017-11-26] MEDS: MULTIVITAMIN TAB PO SCH (07:55)
[2017-11-26] MEDS: NICOTINE 21 MG/24 HR TDSY TD SCH (07:55)
[2017-11-26] MEDS: THIAMINE HCL 100 MG TAB PO SCH (07:56)
[2017-11-26] MEDS: LURASIDONE HCL 40 MG TAB PO SCH (07:56)
[2017-11-26] MEDS: LOSARTAN POTASSIUM 25 MG TAB PO SCH (07:57)
[2017-11-26] MEDS: DICYCLOMINE HCL 20 MG TAB PO SCH (07:57)
--- NOTE | 2017-11-26 08:02 | Progress Note ---
Internal Med Progress Note Date of Service: Nov 25, 2017. Provider Documentation: This is a bill for 10/2817 SUBJECTIVE: The patient was seen and examined in medical floor She was admitted yesterday with them lower GI bleed Status post EGD and colonoscopy today Likely has diverticular bleed Receiving blood transfusion now 11/25: Still has black stool Denies any symptoms Wants real food OBJECTIVE: Vital Signs-as noted below Exam: General-no apparent distress at rest Eyes-normal ENT-normal Neck-supple Lungs-clear to auscultate bilaterally Heart-regular Abdomen-benign,no distension, mildly tender epigastrium Extremities-negative for any edema Neuro-alert, awake and oriented 3 Lab data as noted below. ASSESSMENT & PLAN: Acute Blood Loss Anemia GI BLEED-Acute Diverticular bleed HISTORY OF ALCOHOLIC CIRRHOSIS -Admitted to [facility] -Patient presenting with bright red and dark red blood per rectum 3 days; in the ED, hemoglobin 9.1 (baseline runs around 10) -Patient is hemodynamically stable -EGD 07/2017 - portal hypertensive gastropathy; colonoscopy 08/2016 - internal hemorrhoids, diverticulosis of the sigmoid colon -Repeat EGD-Grade C Esophagitis and Colonoscopy-Blood in Colon-LIKELY Diverticular -CT ABD/pelvis negative for acute findings however did show moderate abdominal varices -Check stool studies-C Diff and Culture-Negative -Continue Xifaxan however hold lactulose due to diarrhea; hold diuretics as well due to GI bleeding and hyponatremia -Hb Dropped to 6/.9 -will receive 2 units of PRBC -clinically stable -Monitor H/H-8.1 on 11/25/17 -If No more bleed and H/H remains stable for 24 hrs-will discharge -Check CBC in AM HYPONATREMIA -Likely due to dehydration from GI bleeding in combination with use of diuretics -Check urine and serum osmolality, urine sodium, urine creatinine -S/P 1 liter NSS in the ER; continue with NSS at 80 cc an hour and recheck sodium at 1900 -improving 127 today -corrected-138 HYPERTENSION -BP controlled, continue losartan BIPOLAR, DEPRESSION -Continue home meds -no acute issue ASTHMA -No signs of acute exacerbation, continue home inhalers DVT PROPHYLAXIS -SCDs due to GI bleeding DISPOSITION -In my clinical judgment this beneficiary meets acute admission criteria, established by [facility], that includes being hospitalized through two midnights. DISPOSITION Likely to be discharged in a day or two Vital Signs: Date Time Temp Pulse Resp B/P (MAP) Pulse Ox O2 Delivery O2 Flow Rate FiO2 11/26/17 07:22 36.7 81 16 141/62 (88) 97 Room Air 11/25/17 23:00 36.8 79 18 105/49 (67) 95 Room Air 11/25/17 20:05 Room Air 11/25/17 15:29 36.7 87 18 107/50 (69) 98 Room Air 11/25/17 08:00 Room Air Lab Results: Results Past 24 Hours Test 11/25/17 11:09 11/25/17 11:30 Range/Units Bedside Glucose 28 79 70-90 mg/dl
[2017-11-26 09:03] LABS: HEMATOCRIT 24.2 % (37-47); HEMOGLOBIN 8.2 g/dL (12.0-16.0); MEAN CELL VOLUME 93.1 fL (80-100); MEAN CORPUSCULAR HEMOGLOBIN 31.5 pg (25-34); MEAN CORPUSCULAR HGB CONC 33.9 g/dl (32-36); MEAN PLATELET VOLUME 9.1 fL (7.4-10.4); PLATELET COUNT 134 K/uL (130-400); RED CELL DISTRIBUTION WIDTH CV 16.5 % (11.5-14.5); RED CELL DISTRIBUTION WIDTH SD 54.2 fL (36.4-46.3); WHITE BLOOD COUNT 8.15 K/uL (4.8-10.8)
[2017-11-26] MEDS: hydrOXYzine HCL 25 MG TAB PO SCH (11:31)
--- NOTE | 2017-11-26 14:37 | GASTROENTEROLOGY PROGRESS NOTE ---
DATE: 11/26/2017 GI progress note and cross coverage for [facility]. PATIENT'S AGE: 52. SEX: Female. RACE: . SUBJECTIVE: I had the pleasure of seeing Marcia Mcgowan at her bedside today. She appears better than yesterday. She states that she is feeling much improved. She did have a bowel movement today which was dark brown, though no blood. She is eating well and tolerating p.o. intake. She denies any abdominal pain, fevers, chills, nausea, vomiting, hematemesis, melena or hematochezia. She has no further complaints. PHYSICAL EXAMINATION: VITAL SIGNS: Temp 36.7, pulse 81, respirations 16, blood pressure 141/62, pulse ox 97% on room air. GENERAL: She is awake, cooperative, chronic ill appearing, in no acute distress. CHEST: Clear to auscultation bilaterally. CARDIOVASCULAR SYSTEM: Regular rate and rhythm. ABDOMEN: Soft, nontender, nondistended. Positive bowel sounds. There is no appreciable hepatosplenomegaly. EXTREMITIES: No clubbing, cyanosis, or edema. LABORATORY STUDIES: From today include an H and H of 8.2 and 24.2. IMPRESSION: A 52-year-old female with a history of alcohol-induced cirrhosis who presented with rectal bleeding and underwent both an EGD and colonoscopy by Dr. Rodriguez with no obvious bleeding source found. PLAN: At the present time, I would recommend continuing her on Protonix 40 mg p.o. b.i.d. I would continue supportive care. Aura BRAVO will resume her care tomorrow if she is not discharged later today. Once again, thanks for allowing me to participate in the care of this patient. If you have any further questions, please do not hesitate in contacting me.
--- NOTE | 2017-11-26 15:36 | Progress Note ---
Medicine Progress Note Date & Time of Visit: Nov 26, 2017 at 15:05 . Subjective Doing well. No gross rectal bleeding, stools not as dark. Mild nausea, no emesis. No abdominal pain. No CP, cough, SOB. Ambulating. Would like to go home. . Objective Last 8 Hrs Date Time Temp Pulse Resp B/P (MAP) Pulse Ox O2 Delivery O2 Flow Rate FiO2 11/26/17 08:00 Room Air 11/26/17 07:22 36.7 81 16 141/62 (88) 97 Room Air Physical Exam: General- no distress Eyes- anicteric Lungs- clear to auscultation; no respiratory distress Cardiovascular- RRR; III/ sys murmur at base; no gallop; no JVD; no pretibial edema Abdomen- + bowel sounds, soft, nontender Extremities- no cyanosis; no calf tenderness Neuro- alert, oriented Skin- warm & dry . Laboratory Results: Last 24 Hours Test 11/26/17 08:22 White Blood Count 8.15 K/uL Red Blood Count 2.60 M/uL Hemoglobin 8.2 g/dL Hematocrit 24.2 % Mean Corpuscular Volume 93.1 fL Mean Corpuscular Hemoglobin 31.5 pg Mean Corpuscular Hemoglobin Concent 33.9 g/dl RDW Standard Deviation 54.2 fL RDW Coefficient of Variation 16.5 % Platelet Count 134 K/uL Mean Platelet Volume 9.1 fL Assessment & Plan GI BLEED Presented to ED with rectal bleeding followed by dark stools. Underlying cirrhosis / portal hypertension. Hgb at time of admission was 9.1 and fell as low as 6.9. INR was 1.3. Platelet count was 154,000. Received PPI. Received 2 units pRBC's. GI consulted. EGD demonstrated revealed esophagitis without active bleeding and a small hiatal hernia. Colonoscopy revealed left-sided diverticulosis without active diverticular bleeding, old blood throughout colon. Hgb day of discharge was 8.2. Discharge on Fe. Stop aspirin. Consider small bowel evaluation by capsule endoscopy- will defer to GI. Follow H&H. ACUTE BLOOD LOSS ANEMIA Hgb at time of admission was 9.1 and fell as low as 6.9. Acute blood loss anemia secondary to GI bleeding. Received 2 units pRBC's. Hgb day of discharge was 8.2. Discharge on Fe. Follow H&H. CIRRHOSIS OF LIVER Total bilirubin 1.8, AST 60, ALT 39, alk phos 68. No ascites per CT. Discharge on usual meds (furosemide 40 mg BID, spironolactone 100 mg daily, lactulose 60 ml QID). Outpatient follow-up with GI. Consider liberalizing Na restriction in light of hyponatremia. HYPONATREMIA Serum sodium at time of admission was 126. Uosm = 158. Hyponatremia probably multifactorial- liver disease, spironolactone, possible SIADH, etc. Sodium 11/25 was 138. Restrict fluids 1500 mls/day. May need to liberalize sodium restriction. Follow. CHF History of systolic heart failure with improvement of LVEF. Chronic left ventricular diastolic heart failure. Compensated. Continue diuretics. SYSTOLIC HEART MURMUR Exam reveals III/ systolic murmur at base. Echo Mar 2017 demonstrated aortic sclerosis without stenosis. Follow. VTE PROPHYLAXIS No anticoagulants due to GI bleeding. SCD's. Ambulate. DISPOSITION Discharge to home. Internal Medicine follow-up with Dr. Crane. Gastroenterology follow-up with Aura BRAVO. . Consultants: GI . Procedures: IV meds CT abdomen and pelvis transfusion 2 units pRBC's EGD colonoscopy . Current Inpatient Medications: Current Inpatient Medications Medications (Trade) Dose Ordered Sig/Horacio Route Start Time Stop Time Status Last Admin Dose Admin Ioversol (Optiray 320) 100 ml UD PRN IV 11/23/17 11:30 11/27/17 11:29 Acetaminophen (Tylenol Tab) 650 mg Q4H PRN PO 11/23/17 15:45 12/23/17 15:44 Ondansetron HCl (Zofran Inj) 4 mg Q6H PRN IV 11/23/17 15:45 12/23/17 15:44 Budesonide/ Formoterol Fumarate (Symbicort 160/ 4.5 Inh) 2 puffs BID INH 11/23/17 21:00 12/23/17 20:59 11/26/17 07:54 2 PUFFS Dicyclomine HCl (Bentyl Tab) 20 mg BID PO 11/23/17 21:00 12/23/17 20:59 11/26/17 07:57 20 MG Salmeterol Xinafoate/ Fluticasone (Advair Diskus 500/50 Inh) 1 puff BID INH 11/23/17 21:00 12/23/17 20:59 11/26/17 07:54 1 PUFF Folic Acid (Folvite Tab) 1 mg DAILY PO 11/24/17 09:00 12/24/17 08:59 11/26/17 07:55 1 MG Hydroxyzine HCl (Vistaril Tab) 25 mg DAILYBL PO 11/24/17 11:00 12/24/17 10:59 11/26/17 11:31 25 MG Lamotrigine (Lamictal Tab) 75 mg BID PO 11/23/17 21:00 12/23/17 20:59 11/26/17 07:56 75 MG Losartan Potassium (coZAAR TAB) 25 mg DAILY PO 11/24/17 09:00 12/24/17 08:59 11/26/17 07:57 25 MG Magnesium Oxide (Mag-Ox Tab) 400 mg BID PO 11/23/17 21:00 12/23/17 20:59 11/26/17 07:55 400 MG Montelukast Sodium (Singulair Tab) 10 mg HS PO 11/23/17 21:00 12/23/17 20:59 11/25/17 19:53 10 MG Multivitamins (Multivitamin Tab) 1 tab DAILY PO 11/24/17 09:00 12/24/17 08:59 11/26/17 07:55 1 TAB Rifaximin (Xifaxan Tab) 550 mg BID PO 11/23/17 21:00 12/23/17 20:59 11/26/17 07:55 550 MG Thiamine HCl (Vitamin B-1 Tab) 100 mg DAILY PO 11/24/17 09:00 12/24/17 08:59 11/26/17 07:56 100 MG Trazodone HCl (Desyrel Tab) 150 mg HS PO 11/23/17 21:00 12/23/17 20:59 11/25/17 19:56 150 MG Lurasidone HCl (Latuda Tab) 20 mg BID PO 11/23/17 21:00 12/23/17 20:59 11/26/17 07:56 20 MG Ceftriaxone Sodium 1000 mg/ Dextrose 60 ml @ 100 mls/hr Q24H IV 11/23/17 18:00 12/03/17 17:59 11/25/17 17:29 100 MLS/HR Nicotine (Nicoderm Cq 21MG Patch) 1 patch QAM TD 11/24/17 09:00 12/24/17 08:59 11/26/17 07:55 1 PATCH Miscellaneous (Remove Nicoderm Patch) 1 ea HS N/A 11/23/17 21:00 12/23/17 20:59 11/25/17 19:53 1 EA Tramadol HCl (Ultram Tab) 50 mg Q6H PRN PO 11/23/17 16:45 12/23/17 16:44 11/24/17 07:37 50 MG Pantoprazole Sodium (Protonix Tab) 40 mg BID PO 11/24/17 21:00 12/24/17 20:59 11/26/17 07:55 40 MG
[2017-11-26 15:40] VITALS: BP 98/58; PULSE 70; TEMP 36.9; O2SAT 99
--- NOTE | 2017-11-26 16:34 | Discharge Instructions ---
Discharge Instructions Date of Service Nov 26, 2017. Admission Reason for Admission: intestinal bleeding . Discharge Discharge Diagnosis / Problem: intestinal bleeding Discharge Goals Goal(s): Decrease discomfort, Improve disease control Activity Recommendations Activity Limitations: resume your previous activity . Instructions / Follow-Up Instructions / Follow-Up APPOINTMENTS: INTERNAL MEDICINE 11/30/2017 10:40 AM Kandi Ferreira DO (covering for Dr. Crane) [facility] Office OTHER INSTRUCTIONS: Stop taking aspirin until further notice. It can cause or aggravate intestinal bleeding. Take ferrous sulfate (iron pills) 1 pill daily with lunch. Your sodium level was too low. Try to limit your fluid intake to 1500 mls (6 cups) a day- this includes water, coffee, tea, and other liquids. Eat snacks between meals. Seek medical attention if you have: * temperature above 101 * chest pain or trouble breathing * abdominal pain, nausea, vomiting * diarrhea, dark stools or bloody stools * any unanswered questions or concerns Call 911 if symptoms are severe. Call if you have any questions or problems. My cell # is [phone]. You can also reach a [facility] hospitalist on duty at [facility] 24 hours a day by calling [phone]. Please take good care of yourself. Ronald Ariza . Current Hospital Diet Patient's current hospital diet: Low Fiber Diet Discharge Diet Recommended Diet: AHA Diet (Heart Healthy), Low Sodium Diet (2gm Na) Procedures Procedures Performed: Colonoscopy, EGD, Dr. Rodriguez Pending Studies Studies pending at discharge: no Medical Emergencies . Who to Call and When: Medical Emergencies: If at any time you feel your situation is an emergency, please call 911 immediately. . Non-Emergent Contact Non-Emergency issues call your: Primary Care Provider, Aviation Electrical Technician, Hospital Doctor . . "Provider Documentation" section prepared by Ronald Ariza. .
[2017-11-26] MEDS ORDERED: FRRS300 PO (16:35)
[2017-11-26 16:44] VITALS: BP 98/58; PULSE 70; TEMP 36.9; O2SAT 99
--- NOTE | 2017-11-26 17:44 | Discharge Summary ---
Discharge Summary Date of Service Nov 26, 2017. Discharge Summary Admission Date: Nov 23, 2017 at 15:46 Discharge Date: Nov 26, 2017 Discharge Disposition: Home Principal Diagnosis: GI bleed, source not determined OTHER ACUTE DIAGNOSES: acute blood loss anemia hyponatremia . Procedures: IV meds CT abdomen and pelvis transfusion 2 units pRBC's EGD colonoscopy . Consultations: GI . Pending Studies/Follow-Up: Please check basic metabolic profile and CBC in clinic. . Medication Reconciliation New Medications: Ferrous Sulfate (Ferrous Sulfate) 325 Mg Tab 325 MG PO DAILY, #30 TAB 5 Refills Take with lunch. No prescription necessary. Continued Medications: Acetaminophen (Tylenol) 500 Mg Tab 500-1000 MG PO BID PRN for Pain do not exceed 2gm/24hr Albuterol Sulf (Proventil 0.083% 2.5MG/3ML) 2.5 Mg/3 Ml Nebu 2.5 MG INH q6-8 hrs PRN for Wheezing, EA Budesonide/Formoterol Fumarate (Symbicort 160/4.5 Inhaler ) Aero 2 PUFFS INH BID, INHALER Dicyclomine Hcl (Bentyl) 10 Mg Cap 20 MG PO BID, CAP Fluticasone Prop/Salmeterol (Advair Diskus 500/50 60 Dose) 1 Ea Aerp 1 PUFFS INH BID for 30 Days, #1 INHALER 5 Refills Fluticasone Propionate (Nasal) (Flonase Allergy Relief) 50 Mcg/Act Spr 2 SPRY KOLE DAILY Folic Acid (Folic Acid) 1 Mg Tab 1 MG PO DAILY Furosemide (Lasix) 40 Mg Tab 40 MG PO BID Furosemide (Lasix) 40 Mg Tab 20 MG PO QAM PRN for fluid, TAB Hydroxyzine Hcl (Atarax) 25 Mg Tab 25 MG PO NOON, TAB Ipratropium [place] (Atrovent 0.02% Soln) 2.5 Ml Nebu 1 VIAL INH Q6-8HRS PRN for SOB/Wheezing Lactulose (Chronulac) 10 Gm/15 Ml Syrp 60 ML PO QID Lamotrigine (Lamictal) 25 Mg Tab 75 MG PO BID for 30 Days, #180 TAB 1 Refill Losartan Potassium (Cozaar) 25 Mg Tab 25 MG PO DAILY, TAB Lurasidone Hcl (Latuda) 20 Mg Tab 20 MG PO BID Magnesium Oxide (Mag-Ox) 400 Mg Tab 400 MG PO BID, TAB Montelukast Sodium (Singulair) 10 Mg Tab 10 MG PO HS, TAB Multivitamin (Multivitamin) Tab 1 TAB PO DAILY, TAB Ondansetron Hcl (Zofran) 4 Mg Tab 4 MG PO Q8 PRN for Nausea, TAB Pantoprazole (Protonix) 40 Mg Tab 40 MG PO BID, #30 TAB Potassium Chloride (Micro-K Ext Rel) 10 Meq Cap 10 MEQ PO DAILY, CAP Potassium Chloride (Micro-K Ext Rel) 10 Meq Capcr 10 MEQ PO QAM PRN for with extra lasix, CAP Rifaximin (Xifaxan) 550 Mg Tab 1 TAB PO BID for 14 Days, #28 TAB Spironolactone (Aldactone) 100 Mg Tab 100 MG PO QAM, TAB Thiamine Hcl (Vitamin B-1) 100 Mg Tab 100 MG PO DAILY, TAB Trazodone Hcl (Desyrel) 150 Mg Tab 150 MG PO HS, TAB Discontinued Medications: Aspirin (Aspirin Chewable) 81 Mg Chew 81 MG PO DAILY Admission Information HPI (per Admitting provider): 52-year-old female who presents the ED with rectal bleeding. Patient reports her symptoms began 3 days ago. She reports she initially had some bright red bleeding per rectum and then she had some dark, almost black, blood surrounded by bright red blood with associated diarrhea. She reports nausea and vomiting. She describes emesis as undigested food. She denies hematemesis and coffee- ground emesis. She has been having lower abdominal cramping. She reports chills which are chronic for her. No fevers. She has some occasional lightheadedness but denies any dizziness or syncopal events. She denies chest pain or shortness of breath. No urinary symptoms. In the ED, patient's hemoglobin is 9.1 (baseline runs around 10) and she is hyponatremic with sodium of 126. She is hemodynamically stable. She was given IVF, IV Zofran, IV morphine, and given a Protonix bolus. . Physical Exam (per Admitting): General Appearance: WD/WN, no apparent distress Head: normocephalic, atraumatic Eyes: normal inspection, EOMI, sclerae normal ENT: hearing grossly normal, + pertinent finding (Mucous membranes moist) Neck: supple, no JVD, trachea midline Respiratory/Chest: lungs clear, normal breath sounds, no respiratory distress Cardiovascular: regular rate, rhythm, no edema, normal peripheral pulses Abdomen/GI: soft, no organomegaly, + tenderness (Mild, lower abdomen), + abnormal bowel sounds (Hyperactive) Extremities/Musculoskelatal: normal inspection, no calf tenderness, normal capillary refill Neurologic/Psych: no motor/sensory deficits, alert, normal mood/affect, oriented x 3 Skin: normal color, warm/dry Hospital Course GI BLEED Presented to ED with rectal bleeding followed by dark stools. Underlying cirrhosis / portal hypertension. Hgb at time of admission was 9.1 and fell as low as 6.9. INR was 1.3. Platelet count was 154,000. Received PPI. Received 2 units pRBC's. GI consulted. EGD demonstrated revealed esophagitis without active bleeding and a small hiatal hernia. Colonoscopy revealed left-sided diverticulosis without active diverticular bleeding, old blood throughout colon. Hgb day of discharge was 8.2. Discharge on Fe. Stop aspirin. Consider small bowel evaluation by capsule endoscopy- will defer to GI. Follow H&H. ACUTE BLOOD LOSS ANEMIA Hgb at time of admission was 9.1 and fell as low as 6.9. Acute blood loss anemia secondary to GI bleeding. Received 2 units pRBC's. Hgb day of discharge was 8.2. Discharge on Fe. Follow H&H. CIRRHOSIS OF LIVER Total bilirubin 1.8, AST 60, ALT 39, alk phos 68. No ascites per CT. Discharge on usual meds (furosemide 40 mg BID, spironolactone 100 mg daily, lactulose 60 ml QID). Outpatient follow-up with GI. Consider liberalizing Na restriction in light of hyponatremia. HYPONATREMIA Serum sodium at time of admission was 126. Uosm = 158. Hyponatremia probably multifactorial- liver disease, spironolactone, possible SIADH, etc. Sodium 11/25 was 138. Restrict fluids 1500 mls/day. May need to liberalize sodium restriction. Follow. CHF History of systolic heart failure with improvement of LVEF. Chronic left ventricular diastolic heart failure. Compensated. Continue diuretics. SYSTOLIC HEART MURMUR Exam reveals III/ systolic murmur at base. Echo Mar 2017 demonstrated aortic sclerosis without stenosis. Follow. VTE PROPHYLAXIS No anticoagulants due to GI bleeding. SCD's. Ambulate. DISPOSITION Discharge to home. Internal Medicine follow-up with Dr. Crane. Gastroenterology follow-up with Aura BRAVO. . Total time spent on discharge = 40 min. This includes examination of the patient, discharge planning, medication reconciliation, and communication with other providers. . Discharge Instructions Discharge Instructions Date of Service Nov 26, 2017. Admission Reason for Admission: intestinal bleeding . Discharge Discharge Diagnosis / Problem: intestinal bleeding Discharge Goals Goal(s): Decrease discomfort, Improve disease control Activity Recommendations Activity Limitations: resume your previous activity . Instructions / Follow-Up Instructions / Follow-Up APPOINTMENTS: INTERNAL MEDICINE 11/30/2017 10:40 AM Kandi Ferreira DO (covering for Dr. Crane) [facility] OTHER INSTRUCTIONS: Stop taking aspirin until further notice. It can cause or aggravate intestinal bleeding. Take ferrous sulfate (iron pills) 1 pill daily with lunch. Your sodium level was too low. Try to limit your fluid intake to 1500 mls (6 cups) a day- this includes water, coffee, tea, and other liquids. Eat snacks between meals. Seek medical attention if you have: * temperature above 101 * chest pain or trouble breathing * abdominal pain, nausea, vomiting * diarrhea, dark stools or bloody stools * any unanswered questions or concerns Call 911 if symptoms are severe. Call if you have any questions or problems. My cell # is [phone]. You can also reach a [facility] hospitalist on duty at [facility] 24 hours a day by calling [phone]. Please take good care of yourself. Rnoald Ariza . Current Hospital Diet Patient's current hospital diet: Low Fiber Diet Discharge Diet Recommended Diet: AHA Diet (Heart Healthy), Low Sodium Diet (2gm Na) Procedures Procedures Performed: Colonoscopy, EGD, Dr. Rodriguez Pending Studies Studies pending at discharge: no Medical Emergencies . Who to Call and When: Medical Emergencies: If at any time you feel your situation is an emergency, please call 911 immediately. . Non-Emergent Contact Non-Emergency issues call your: Primary Care Provider, Underwriting Operations Manager, Hospital Doctor . . "Provider Documentation" section prepared by Ronald Ariza. . .
== END 2017-11-26 17:00 | disposition home or self-care (01) | DRG 378 ==
LOC: C.EDB 10:39 → C.MS2W 15:46 → ENRESERV 16:12
PROVIDERS: ADMIT Family Medicine; ATTEND Hospitalist
PROC: 0DJD8ZZ Inspection of Lower Intestinal Tract, Via Natural or Artificial Opening Endoscopic (ICD-10-PCS; principal; 2017-11-24 09:25)
PROC: 0DJ08ZZ Inspection of Upper Intestinal Tract, Via Natural or Artificial Opening Endoscopic (ICD-10-PCS; principal; 2017-11-24 09:25)
DX: K57.31 Diverticulosis of large intestine without perforation or abscess with bleeding (principal); E87.1 Hypo-osmolality and hyponatremia; D62 Acute posthemorrhagic anemia; I11.0 Hypertensive heart disease with heart failure; I50.32 Chronic diastolic (congestive) heart failure; K64.4 Residual hemorrhoidal skin tags; K64.8 Other hemorrhoids; E86.0 Dehydration; J45.909 Unspecified asthma, uncomplicated; F17.200 Nicotine dependence, unspecified, uncomplicated; Z79.82 Long term (current) use of aspirin; Z79.899 Other long term (current) drug therapy

== ENCOUNTER 2019-04-27 14:17 | Observation (INO) ==
[2019-04-27] MEDS ORDERED: MoRPHine SULFATE 4 MG/ML 1 ML CARP\\VIAL IV STA (15:10)
[2019-04-27] MEDS ORDERED: ONDANSETRON INJ 2 MG/ML 2 ML VIAL IV STA (15:10)
--- NOTE | 2019-04-27 15:14 | Emergency Department Note ---
History of Present Illness General Chief complaint: Rectal Bleed Stated complaint: BLEEDING FROM RECTUM Time Seen by Provider: 04/27/19 14:57 History of Present Illness Maximum Pain Intensity: 5 This is a 53-year-old female that presents to the emergency department via private vehicle with complaints of "bleeding from rectum". The patient has a history of rectal bleeding requiring transfusion just over a year ago. She notes a history of cirrhosis as well. No anticoagulants. She states that since about 1 PM today she has had lower abdominal pain is a 5/10 as well as bright red blood per rectum. She has a history of hemorrhoids but this does not feel similar. She denies any history of ulcerative colitis or Crohn's. No nausea or vomiting. No fevers or chills. No exacerbating or alleviating factors to the abdominal pain. She states that she had a colonoscopy in the past which was normal. Home Medications Home Medications Medication Instructions Recorded Confirmed Type dicyclomine 20 mg PO BID PRN 02/22/18 04/27/19 History fluticasone propionate [Flonase 2 spray INTRANASAL DAILY PRN 02/22/18 04/27/19 History Allergy Relief] furosemide [Lasix] 60 mg PO DAILY 02/22/18 04/27/19 History pantoprazole [Protonix] 40 mg PO BID 02/22/18 04/27/19 History ropinirole [Requip] 0.25 mg PO HS 02/22/18 04/27/19 History albuterol sulfate 90 mcg/actuation 2 puffs INH Q6H PRN 11/28/18 04/27/19 History aerosol inhaler budesonide-formoterol HFA 160 2 puffs INH BID 11/28/18 04/27/19 History mcg-4.5 mcg/actuation aerosol inhaler ferrous sulfate 325 mg (65 mg 325 mg PO BID 11/28/18 04/27/19 History iron) tablet,delayed release folic acid 1 mg tablet 1 mg PO QAM tab 11/28/18 04/27/19 History losartan 25 mg tablet 25 mg PO DAILY tab 11/28/18 04/27/19 History magnesium oxide 400 mg (as 400 mg PO BID 11/28/18 04/27/19 History magnesium oxide) tablet montelukast 10 mg tablet 10 mg PO DAILY tab 11/28/18 04/27/19 History multivitamin 1 tab PO DAILY tab 11/28/18 04/27/19 History potassium chloride 10 mEq 10 meq PO DAILY tab 11/28/18 04/27/19 History tablet,extended release rifaximin 550 mg tablet 550 mg PO BID 11/28/18 04/27/19 History thiamine HCl (vitamin B1) 100 mg 100 mg PO DAILY tab 11/28/18 04/27/19 History tablet albuterol sulfate 2.5 mg/3 mL 2.5 mg INH QID PRN 12/13/18 04/27/19 History (0.083 %) solution for nebulization dextromethorphan-guaifenesin 30 1 tab PO Q12H PRN 12/13/18 04/27/19 History mg-600 mg tablet extended hr lactulose 10 gram/15 mL oral 60 ml PO QID ml 12/13/18 04/27/19 History solution ondansetron HCl 4 mg tablet 4 mg PO TID PRN 12/13/18 04/27/19 History tramadol 50 mg tablet 50 mg PO BID PRN tab 12/13/18 04/27/19 History trazodone 150 mg tablet 150 mg PO HS 12/13/18 04/27/19 History trihexyphenidyl 5 mg tablet 2.5 mg PO DAILY 12/13/18 04/27/19 History blood sugar diagnostic #10 ea 01/25/19 01/25/19 History blood sugar diagnostic #100 ea 01/25/19 01/25/19 Rx lamotrigine 25 mg tablet 75 mg PO BID tab 01/25/19 04/27/19 History lancets 33 gauge #100 ea 01/25/19 01/25/19 History spironolactone 100 mg tablet 150 mg PO QAM tab 01/25/19 04/27/19 History triamcinolone acetonide 0.5 % 1 appln TOP BID PRN 01/25/19 04/27/19 History topical cream hydroxyzine HCl 25 mg PO BID PRN 04/27/19 04/27/19 History lurasidone [Latuda] 40 mg PO QPM 04/27/19 04/27/19 History Allergies Allergy/AdvReac Type Severity Reaction Status Date / Time strawberry Allergy Severe HIVES Verified 04/27/19 15:27 bee venom protein (honey bee) Allergy Unknown HIVES AND Verified 04/27/19 15:27 SWELLING pollen extracts Allergy Unknown UNKNOWN Verified 04/27/19 15:27 No Known Drug Allergies Allergy Verified 04/27/19 15:27 [place] Tar Allergy Mild Unknown Uncoded 04/27/19 15:27 Past Med/Surg History Medical History Alcoholic cirrhosis (Chronic) Anemia, chronic disease (Chronic) Anxiety (Chronic) Asthma (Chronic) Bipolar 1 disorder (Chronic) H/O alcohol abuse (Chronic) HTN, goal below 140/90 (Chronic) Hx of migraines (Chronic) Sleep apnea (Chronic) Tobacco use disorder (Chronic) Surgical History History of back surgery (Chronic) History of total right knee replacement (Chronic) S/P cholecystectomy (Chronic) S/P tubal ligation (Chronic) Family History (Updated 12/13/18 @ 13:00 by Pema Davidson) Sister Diabetes Other No pertinent family history Social History Preferred Language: Lithuanian Communication Ability: Effective 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 Required: No Beliefs That Will Affect Care: None Current Living Situation: Spouse and Family Other Information That Helps Us Care for You: No Feels Safe at Home: Yes Safety Concerns: Feels Safe At This Time Smoking Status: Current every day smoker Tobacco Type: cigarettes ; Cigarettes Per Day: 20 ; Do You Dip or Chew Tobacco: No ; Second Hand Exposure: Yes ; Tobacco Cessation Education Requested by Patient: No (patient declined) Hx Alcohol Use: No Hx Substance Use: No Review of Systems A total of 10 systems reviewed and were otherwise negative Physical Exam Vital Signs Vital Signs - 24 hr 04/27/19 14:21 04/27/19 15:14 04/27/19 15:18 Temperature 36.7 C Temperature Source Oral Pulse Rate 81 72 66 Pulse Rate [Apical] 66 Respiratory Rate 18 22 23 Respiratory Effort / Characteristics Non-Labored Spontaneous Respiratory Depth Normal Normal Blood Pressure 146/79 H 127/57 L Blood Pressure [Left Arm] 127/57 L Blood Pressure Mean 101 79 Blood Pressure Mean [Left Arm] 80 Pulse Oximetry 99 96 Oxygen Delivery Method Room Air Sepsis Recent Fever Within 48 Hours No Sepsis New/Unexplained Change in Mental Status No Sepsis Action Taken by Nursing No Action Required 04/27/19 16:00 04/27/19 17:13 04/27/19 17:14 Temperature Temperature Source Pulse Rate 67 72 Pulse Rate [Apical] 70 Respiratory Rate 12 16 16 Respiratory Effort / Characteristics Respiratory Depth Blood Pressure 142/65 H Blood Pressure [Left Arm] 142/65 H Blood Pressure Mean 94 Blood Pressure Mean [Left Arm] 90 Pulse Oximetry 96 Oxygen Delivery Method Room Air Sepsis Recent Fever Within 48 Hours Sepsis New/Unexplained Change in Mental Status Sepsis Action Taken by Nursing 04/27/19 17:15 04/27/19 17:34 04/27/19 18:17 Temperature Temperature Source Pulse Rate 70 76 Pulse Rate [Apical] 68 Respiratory Rate 20 21 18 Respiratory Effort / Characteristics Non-Labored Respiratory Depth Normal Blood Pressure 152/75 H Blood Pressure [Left Arm] 119/60 Blood Pressure Mean 107 Blood Pressure Mean [Left Arm] 79 Pulse Oximetry 92 Oxygen Delivery Method Room Air Sepsis Recent Fever Within 48 Hours Sepsis New/Unexplained Change in Mental Status Sepsis Action Taken by Nursing 04/27/19 18:27 Temperature Temperature Source Pulse Rate Pulse Rate [Apical] Respiratory Rate Respiratory Effort / Characteristics Respiratory Depth Blood Pressure Blood Pressure [Left Arm] Blood Pressure Mean Blood Pressure Mean [Left Arm] Pulse Oximetry Oxygen Delivery Method Room Air Sepsis Recent Fever Within 48 Hours Sepsis New/Unexplained Change in Mental Status Sepsis Action Taken by Nursing VITAL SIGNS - Vital signs and nursing notes were reviewed. Stable and afebrile. GENERAL -53-year-old female appearing her stated age who is in no acute distress. Communicates well with provider and answers questions appropriately. SKIN - Without rashes. No meningeal or petechial rash. HEAD - NC/AT. EYES - PERRL with EOMI bilaterally. Sclera anicteric. EARS - No deformities of external structures noted on gross examination bilaterally. NOSE - Midline and without cyanosis. No epistaxis or purulent drainage noted. MOUTH/OROPHARYNX - Without perioral cyanosis. Buccal mucosa pink and moist and without leukoplakia. Tongue midline with equal elevation of palate bilaterally. No tonsillar hypertrophy, erythema, or exudates noted. Fair dentition noted. NECK - Neck with FROM. No nuchal rigidity. LUNGS - Chest wall symmetric without accessory muscle use, intercostals retrac tions, or central cyanosis. Normal vesicular breath sounds CTA B/L. No wheezes, rales, or rhonchi appreciated. CARDIAC - RRR with S1/S2. No murmur, rubs, or gallops appreciated. ABDOMEN - Abdominal contour normal without pulsations or visible masses. BS normoactive all four quadrants. There is lower abdominal tenderness to palpation on examination. No palpable masses, hepatosplenomegaly, or ascites noted. EXTREMITIES - No clubbing or peripheral cyanosis. +5/5 strength noted in UE/LE bilaterally. NEUROLOGIC - Cranial nerves II through XII grossly intact. PSYCH - A&O, and cooperates fully with examiner. Pt is very pleasant and interacts well with examiner. RECTAL: I explained the rationale and reasoning behind the exam. Indication is for subjective complaints of bright red blood per rectum. Consent was obtained. This was performed in the presence of the patient's female RN. There are 2 small nonthrombosed external hemorrhoids noted without evidence of active bleeding. There is a small amount of dried blood to the anus. Rectal exam reveals no internal hemorrhoids palpable on my exam but upon finishing the exam there was bright red blood noted mixed with feces on the digit. Course Administered Medications Octreotide Acetate 500 mcg/ (Sodium Chloride) 105 mls @ 10 mls/hr IV .[id number] Stop: 05/27/19 17:29 Last Admin: 04/27/19 18:13 Dose: 10 mls/hr Documented by: [id number] Ioversol (Optiray 320 100ml) 95 ml IV ONCE PRN PRN Reason: Interaction Checking Stop: 05/01/19 16:30 Last Admin: 04/27/19 16:31 Dose: 95 ml Documented by: [id number] Discontinued Medications Bisacodyl (Dulcolax) 10 mg PO NOW STA Stop: 04/27/19 17:18 Last Admin: 04/27/19 17:31 Dose: 10 mg Documented by: [id number] Sodium Chloride (Nss 1000ml) 1,000 mls @ 999 mls/hr IV .[id number] Stop: 04/27/19 16:15 Last Infusion: 04/27/19 16:57 Dose: 0 mls/hr Documented by: [id number] Admin: 04/27/19 15:20 Dose: 999 mls/hr Documented by: [id number] Ceftriaxone Sodium (Rocephin) 2,000 mg in 70 mls @ 140 mls/hr IV NOW STA Stop: 04/27/19 17:50 Last Infusion: 04/27/19 18:01 Dose: 0 mls/hr Documented by: [id number] Admin: 04/27/19 17:31 Dose: 140 mls/hr Documented by: [id number] Morphine Sulfate (Morphine Sulfate) 4 mg IV NOW STA Stop: 04/27/19 15:11 Last Admin: 04/27/19 15:31 Dose: 4 mg Documented by: [id number] Ondansetron HCl (Zofran) 4 mg IV NOW STA Stop: 04/27/19 15:11 Last Admin: 04/27/19 15:31 Dose: 4 mg Documented by: [id number] Medical Decision Making Laboratory Data Result diagrams: 04/27/19 15:21 04/27/19 15:21 Lab Results 04/27/19 04/27/19 04/27/19 Range/Units 15:21 15:21 15:21 WBC 8.28 (4.8-10.8) K/uL RBC 4.87 (4.2-5.4) M/uL Hgb 16.0 (12.0-16.0) g/dL Hct 43.9 (37-47) % MCV 90.1 (80-100) fL MCH 32.9 (25-34) pg MCHC 36.4 H (32-36) g/dL RDW Std Deviation 45.0 (36.4-46.3) fL RDW Coeff of Gregg 13.7 (11.5-14.5) % Plt Count 132 (130-400) K/uL MPV 9.7 (7.4-10.4) fL Immature Gran % (Auto) 0.2 % Neut % (Auto) 63.6 % Lymph % (Auto) 25.7 % [place] % (Auto) 8.7 % Eos % (Auto) 1.6 % Baso % (Auto) 0.2 % Immature Gran # (Auto) 0.02 (0.00-0.02) K/uL Neut # (Auto) 5.26 (1.4-6.5) K/uL Lymph # (Auto) 2.13 (1.2-3.4) K/uL [place] # (Auto) 0.72 H (0.11-0.59) K/uL Eos # (Auto) 0.13 (0-0.5) K/uL Baso # (Auto) 0.02 (0-0.2) K/uL PT 12.3 H (9.0-12.0) Seconds INR 1.2 H (0.9-1.1) APTT 29.2 (21.0-31.0) Seconds PTT Ratio 1.1 Sodium 132 L (136-145) mmol/L Potassium 3.7 (3.5-5.1) mmol/L Chloride 101 (98-107) mmol/L Carbon Dioxide 24 (21-32) mmol/L Anion Gap 7.0 (3-11) BUN 12 (7-18) mg/dl Creatinine 0.99 (0.6-1.2) mg/dl Est Cr Clr Drug Dosing 77.1 ml/min Est GFR ( Amer) 75.4 Est GFR (Non-Af Amer) 65.1 BUN/Creatinine Ratio 12.1 (10-20) Glucose 78 (70-99) mg/dl Lactate (0.4-2.0) mmol/L Calcium 9.7 (8.5-10.1) mg/dl Magnesium 1.9 (1.8-2.4) mg/dl Total Bilirubin 1.3 H (0.2-1) mg/dl AST 36 (15-37) U/L ALT 29 (12-78) U/L Alkaline Phosphatase 123 H (45-117) U/L Total Protein 9.0 H (6.4-8.2) gm/dl Albumin 4.0 (3.4-5.0) gm/dl Globulin 5.0 H (2.5-4.0) gm/dl Albumin/Globulin Ratio 0.8 L (0.9-2) Urine Color Urine Appearance (Clear) Urine pH (4.5-7.5) Ur Specific [place] (1.000-1.030) Urine Protein (Negative) Urine Glucose (UA) (Negative) Urine Ketones (Negative) Urine Blood (Negative) Urine Nitrite (Negative) Urine Bilirubin (Negative) Urine Urobilinogen (Negative) Ur Leukocyte Esterase (Negative) Blood Type Antibody Screen 04/27/19 04/27/19 04/27/19 Range/Units 15:21 15:31 17:30 WBC (4.8-10.8) K/uL RBC (4.2-5.4) M/uL Hgb (12.0-16.0) g/dL Hct (37-47) % MCV (80-100) fL MCH (25-34) pg MCHC (32-36) g/dL RDW Std Deviation (36.4-46.3) fL RDW Coeff of Gregg (11.5-14.5) % Plt Count (130-400) K/uL MPV (7.4-10.4) fL Immature Gran % (Auto) % Neut % (Auto) % Lymph % (Auto) % [place] % (Auto) % Eos % (Auto) % Baso % (Auto) % Immature Gran # (Auto) (0.00-0.02) K/uL Neut # (Auto) (1.4-6.5) K/uL Lymph # (Auto) (1.2-3.4) K/uL [place] # (Auto) (0.11-0.59) K/uL Eos # (Auto) (0-0.5) K/uL Baso # (Auto) (0-0.2) K/uL PT (9.0-12.0) Seconds INR (0.9-1.1) APTT (21.0-31.0) Seconds PTT Ratio Sodium (136-145) mmol/L Potassium (3.5-5.1) mmol/L Chloride (98-107) mmol/L Carbon Dioxide (21-32) mmol/L Anion Gap (3-11) BUN (7-18) mg/dl Creatinine (0.6-1.2) mg/dl Est Cr Clr Drug Dosing ml/min Est GFR ( Amer) Est GFR (Non-Af Amer) BUN/Creatinine Ratio (10-20) Glucose (70-99) mg/dl Lactate 1.7 (0.4-2.0) mmol/L Calcium (8.5-10.1) mg/dl Magnesium (1.8-2.4) mg/dl Total Bilirubin (0.2-1) mg/dl AST (15-37) U/L ALT (12-78) U/L Alkaline Phosphatase (45-117) U/L Total Protein (6.4-8.2) gm/dl Albumin (3.4-5.0) gm/dl Globulin (2.5-4.0) gm/dl Albumin/Globulin Ratio (0.9-2) Urine Color Yellow Urine Appearance Clear (Clear) Urine pH 6.5 (4.5-7.5) Ur Specific [place] 1.012 (1.000-1.030) Urine Protein Negative (Negative) Urine Glucose (UA) Negative (Negative) Urine Ketones Negative (Negative) Urine Blood Negative (Negative) Urine Nitrite Negative (Negative) Urine Bilirubin Negative (Negative) Urine Urobilinogen Negative (Negative) Ur Leukocyte Esterase Negative (Negative) Blood Type O Positive Antibody Screen NEGATIVE Imaging Data Radiologist's Impression: CT OF THE ABDOMEN AND PELVIS WITH CONTRAST CLINICAL HISTORY: Abdominal pain, rectal bleeding (bright red). COMPARISON STUDY: CT of the abdomen and pelvis November 23, 2017. TECHNIQUE: Following IV administration of 95 mL of Optiray-320, axial images of the abdomen and pelvis were obtained from the lung bases to the proximal femurs. Images were reviewed in the axial, sagittal, and coronal planes. IV contrast was administered without complication. Automated exposure control was utilized for the study. A dose lowering technique was utilized adhering to the principles of ALARA. CT DOSE: 883.97 mGy.cm FINDINGS: Lung bases are unremarkable. Biliary ductal dilatation is unchanged and likely related to cholecystectomy. Borderline splenomegaly is unchanged. There are numerous calcified granulomas within the spleen. Large retroperitoneal varices are again noted. There is no ascites. No pneumatosis, free air or portal venous gas is present. The main, left and right portal veins are patent. There is no hydronephrosis. There are postoperative findings within the spine. The appendix is normal. Sensitivity for detection mucosal lesions within the bowel is diminished given CT technique but none are identified. No lymphadenopathy is present. No suspicious osseous lesions are noted. There is no evidence for a bowel obstruction. Uterine fibroid is again noted. IMPRESSION: 1. No acute process within the abdomen or pelvis. 2. No bowel mucosal lesions identified although sensitivity diminished given CT technique. No bowel obstruction. No bowel wall thickening. 3. Large retroperitoneal varices which were shown on prior CT. Liver not overtly cirrhotic by CT however the varices suggest portal hypertension statistically due to liver disease. ACT 112: Negative or not required by law. Electronically signed by: Len Mayfield M.D. 04/27/2019 4:53 PM MDM Narrative Patient was seen and evaluated as above in room C 11. Review was performed of nursing notes and vital signs. After obtaining a thorough history and physical examination the above work up was performed. She has had similar before, about 1-1/2 years ago requiring a transfusion and at that time underwent colonoscopy and EGD. Per report from a year and a half ago, there was blood in the entire examined colon on the colonoscopy. No documentation of localized source. On lab work today there is no leukocytosis or anemia. INR 1.2. Sodium 132. T bili 1.3. Urinalysis does not suggest infection. Type and screen was ordered. She is a positive. A CT scan was obtained of the abdomen and pelvis secondary to her complaints of pain. She was also medicated here with IV morphine, Zofran and fluids. CT scan reveals large retroperitoneal varices which were shown on prior CT. There is no obstruction. Rectal exam did reveal bright red blood. She does have 2 external hemorrhoids but these do not appear to be thrombosed nor they appear to be actively bleeding. Patient's vital signs are stable. Her hemoglobin at this time appears appropriate. Upon reassessment, the patient notes more blood per rectum and notes it is a lot more. Although she does ap pear stable at this time, I do believe that she has the potential to decompensate if she continues bleeding. I discussed these findings with the attending physician as well as the on-call GI specialist, Dr. Nation. We reviewed the case. It was recommended to have the patient n.p.o. after midn ight, begin an octreotide drip, 4 L of GoLYTELY, Dulcolax, empiric Rocephin, plan for colonoscopy tomorrow, and inpatient medical management via 24-hour observation pending her clinical course. I believe this is reasonable. Patient was happy with plan of care. She will be admitted to the inpatient service. Please refer to further documentation regarding her stay. Case was discussed with the attending physician. I attest that I have personally reviewed the patient medication list. I attest that I have reviewed the patient's blood pressure and it was found to be elevated at time of presentation likely secondary to pain GCS: 15 In the evaluation and treatment of this patient the following differential diagnoses were entertained: Diverticulitis, Crohn's, ulcerative colitis, esophageal varices, gastric ulcer, mesenteric ischemia, among others. Impression & Plan BRBPR (bright red blood per rectum), History of GI bleed Discharge Plan Visit Data Chief Complaint: Rectal Bleed Stated Complaint: BLEEDING FROM RECTUM ED Provider: Mario Garibay ED Midlevel Provider: Carlos Reid Discharge Problem: BRBPR (bright red blood per rectum), History of GI bleed Patient Disposition: Admitted As Inpatient Condition: Good Discharge Instructions Interventions: ED Discharge Assessment Last Done: 04/27/19 18:27 Forms Stand Alone Forms: My [facility], Important Visit Information Prescriptions Prescriptions: No Action Symbicort 160-4.5 mcg/actuation HFA aerosol inhaler 2 puffs INH BID RF: 0 albuterol sulfate [Ventolin HFA] 90 mcg/actuation HFA aerosol inhaler 2 puffs INH Q6H PRN (Reason: Shortness Of Breath) RF: 0 Xifaxan 550 mg tablet 550 mg PO BID RF: 0 (DME) OneTouch Ultra Blue Test Strip strip See Dose Instructions .ROUTE .MEDSUPPLY Qty: 10 RF: 0 (DME) lancets [OneTouch Delica Lancets] 33 gauge misc See Dose Instructions .ROUTE .MEDSUPPLY Qty: 100 RF: 0 (DME) OneTouch Verio strip See Dose Instructions .ROUTE .MEDSUPPLY Qty: 100 RF: 11 albuterol sulfate 2.5 mg /3 mL (0.083 %) solution for nebulization 2.5 mg INH QID PRN (Reason: Shortness Of Breath) RF: 0 lactulose 10 gram/15 mL solution 60 ml PO QID RF: 0 Mucinex DM 30-600 mg tablet extended release 12 hr 1 tab PO Q12H PRN (Reason: Congestion) RF: 0 ondansetron HCl 4 mg tablet 4 mg PO TID PRN (Reason: Acid Reflux) RF: 0 trazodone 150 mg tablet 150 mg PO HS RF: 0 trihexyphenidyl 5 mg tablet 2.5 mg PO DAILY RF: 0 triamcinolone acetonide 0.5 % cream 1 appln TOP BID PRN (Reason: Rash) RF: 0 lamotrigine 25 mg tablet 75 mg PO BID RF: 0 folic acid 1 mg tablet 1 mg PO QAM RF: 0 Latuda 40 mg tablet 40 mg PO QPM RF: 0 hydroxyzine HCl 25 mg tablet 25 mg PO BID PRN (Reason: anxiety) RF: 0 furosemide [Lasix] 40 mg tablet 60 mg PO DAILY RF: 0 ropinirole [Requip] 0.25 mg tablet 0.25 mg PO HS RF: 0 dicyclomine 20 mg tablet 20 mg PO BID PRN (Reason: Abdominal Pain) RF: 0 pantoprazole [Protonix] 40 mg tablet,delayed release (DR/EC) 40 mg PO BID RF: 0 fluticasone propionate [Flonase Allergy Relief] 50 mcg/actuation spray,suspension 2 spray Intranasal DAILY PRN (Reason: Allergy Symptoms) RF: 0 ferrous sulfate 325 mg (65 mg iron) tablet,delayed release (DR/EC) 325 mg PO BID RF: 0 losartan [Cozaar] 25 mg tablet 25 mg PO DAILY RF: 0 magnesium oxide 400 mg magnesium tablet 400 mg PO BID RF: 0 montelukast [Singulair] 10 mg tablet 10 mg PO DAILY RF: 0 multivitamin tablet 1 tab PO DAILY RF: 0 potassium chloride [Klor-Con 10] 10 mEq tablet extended release 10 meq PO DAILY RF: 0 thiamine HCl (vitamin B1) [Vitamin B-1] 100 mg tablet 100 mg PO DAILY RF: 0 tramadol [Ultram] 50 mg tablet 50 mg PO BID PRN (Reason: Pain) RF: 0 spironolactone [Aldactone] 100 mg tablet 150 mg PO QAM RF: 0 Referrals Referrals: Rangel Crane DO [Primary Care Provider] -
[2019-04-27] MEDS ORDERED: SODIUM CHLORIDE 0.9% 1000ML 1,000 ML IV SCH (15:15)
[2019-04-27 15:35] LABS: Basophils # (auto) 0.02 K/uL (0-0.2); Basophils % (auto) 0.2 %; Eosinophils # (auto) 0.13 K/uL (0-0.5); Eosinophils % (auto) 1.6 %; Hematocrit (blood only) 43.9 % (37-47); Immature Granulocytes # (auto) 0.02 K/uL (0.00-0.02); Immature Granulocytes % (auto) 0.2 %; Lymphocytes # (auto) 2.13 K/uL (1.2-3.4); Lymphocytes % (auto) 25.7 %; Mean Corpuscular Hemoglobin 32.9 pg (25-34); Mean Corpuscular Hgb Conc 36.4 g/dL (32-36); Mean Corpuscular Volume 90.1 fL (80-100); Mean Platelet Volume 9.7 fL (7.4-10.4); Monocytes # (auto) 0.72 K/uL (0.11-0.59); Monocytes % (auto) 8.7 %; Neutrophils # (auto) 5.26 K/uL (1.4-6.5); Neutrophils % (auto) 63.6 %; Platelet Count 132 K/uL (130-400); RDW Coefficient of Variation 13.7 % (11.5-14.5); Red Blood Count 4.87 M/uL (4.2-5.4); White Blood Count 8.28 K/uL (4.8-10.8)
[2019-04-27 15:53] LABS: BUN Creatinine Ratio 12.1 (10-20); Calcium 9.7 mg/dl (8.5-10.1); Creatinine Clr Calc Pharmacy 77.1 ml/min; Est GFR (African American) 75.4; Est GFR (Non-African American) 65.1; INR 1.2 (0.9-1.1); Magnesium 1.9 mg/dl (1.8-2.4); Partial Thromboplastin Ratio 1.1; Partial Thromboplastin Time 29.2 Seconds (21.0-31.0); Potassium 3.7 mmol/L (3.5-5.1); Prothrombin Time 12.3 Seconds (9.0-12.0)
[2019-04-27 15:55] LABS: Albumin Globulin Ratio 0.8 (0.9-2); Bilirubin,Total 1.3 mg/dl (0.2-1)
[2019-04-27] MEDS ORDERED: IOVERSOL 100ml IV PRN (16:31)
--- NOTE | 2019-04-27 16:54 | CT Scan Report ---
CT OF THE ABDOMEN AND PELVIS WITH CONTRAST CLINICAL HISTORY: Abdominal pain, rectal bleeding (bright red). COMPARISON STUDY: CT of the abdomen and pelvis November 23, 2017. TECHNIQUE: Following IV administration of 95 mL of Optiray-320, axial images of the abdomen and pelvi s were obtained from the lung bases to the proximal femurs. Images were reviewed in the axial, sagitt al, and coronal planes. IV contrast was administered without complication. Automated exposure contro l was utilized for the study. A dose lowering technique was utilized adhering to the principles of A MOY. CT DOSE: 883.97 mGy.cm FINDINGS: Lung bases are unremarkable. Biliary ductal dilatation is unchanged and likely related to c holecystectomy. Borderline splenomegaly is unchanged. There are numerous calcified granulomas within the spleen. Large retroperitoneal varices are again noted. There is no ascites. No pneumatosis, free air or portal venous gas is present. The main, left and right portal veins are patent. There is no hy dronephrosis. There are postoperative findings within the spine. The appendix is normal. Sensitivity for detection mucosal lesions within the bowel is diminished given CT technique but none are identifi ed. No lymphadenopathy is present. No suspicious osseous lesions are noted. There is no evidence for a bowel obstruction. Uterine fibroid is again noted. IMPRESSION: 1. No acute process within the abdomen or pelvis. 2. No bowel mucosal lesions identified although sensitivity diminished given CT technique. No bowel o bstruction. No bowel wall thickening. 3. Large retroperitoneal varices which were shown on prior CT. Liver not overtly cirrhotic by CT leung jose luis the varices suggest portal hypertension statistically due to liver disease. ACT 112: Negative or not required by law. Electronically signed by: Len Mayfield M.D. 04/27/2019 4:53 PM
--- NOTE | 2019-04-27 17:00 | Emergency Department Note ---
ED Visit Note I did evaluate and examine this patient myself. I did guide management for the patient. I agree with the PA's assessment as discussed. Please see the PAs dictation for further details. I did independently review the CT scan of the abdomen and pelvis and blood work. The patient's hemoglobin is stable here. She has no acute process within the abdomen pelvis. She does have retroperitoneal varices which were seen previously. While in the emergency department she stated her bleeding became worse. She remains hemodynamically stable. She will be hospitalized for further care and evaluation. .
[2019-04-27] MEDS ORDERED: bisacodyL 5 MG TABEC PO STA (17:17)
[2019-04-27] MEDS ORDERED: cefTRIAXone SODIUM 2,000 MG/70 ML BAG IV STA (17:21)
[2019-04-27 17:47] LABS: Appearance Urine Clear (Clear); Bilirubin Urine Negative (Negative); Blood Urine Negative (Negative); Color Urine Yellow; Glucose Urine UA Negative (Negative); Ketones Urine Negative (Negative); Leukocyte Esterase Urine Negative (Negative); Nitrite Urine Negative (Negative); Protein Urine Negative (Negative); Specific Gravity Urine 1.012 (1.000-1.030); Urobilinogen Urine Negative (Negative); pH Urine 6.5 (4.5-7.5)
[2019-04-27] MEDS ORDERED: LAVAGE SOLUTION 4000ML PO SCH (18:00)
[2019-04-27] MEDS: OCTREOTIDE ACETATE 500 MCG in 0.9 % SODIUM CHLORIDE 100 ML IV SCH (18:13)
--- NOTE | 2019-04-27 19:04 | History & Physical Report ---
Date of Service April 27, 2019 Assessment & Plan (1) BRBPR (bright red blood per rectum): (2) Alcoholic cirrhosis: -Admit to [facility] with telemetry -Patient presenting from home with reports of 5-6 episodes of bright red bleeding per rectum today -Patient with history of GI bleed in October 2017; EGD showed esophagitis and colonoscopy showed blood within the colon, diverticulosis in the left colon; capsule endoscopy was considered however patient's anemia stabilized and bleeding resolved therefore testing was deferred -CT ABD/pelvis today shows retroperitoneal varices which were present on prior exam, no other acute findings -? Diverticular bleed -Hgb 16.0, patient hemodynamically stable -ED provider discussed the case with GI who recommends admitting the patient overnight for colonoscopy tomorrow. Also recommends empiric IV ceftriaxone for SBP prophylaxis and octreotide drip. -Recheck H&H this evening -N.p.o. after midnight -Hold diuretics, gentle IVF -Continue Xifaxan -Hold lactulose while receiving colonoscopy prep (3) COPD (chronic obstructive pulmonary disease): -No signs of acute exacerbation -Continue home inhalers (4) Chronic diastolic CHF (congestive heart failure): -Currently appears euvolemic on exam -Holding diuretics as above (5) HTN, goal below 140/90: -BP controlled, continue losartan (6) Anxiety: (7) Bipolar 1 disorder: -Patient on multiple psychiatric medications including hydroxyzine, Latuda, trazodone, Lamictal, trihexyphenidyl (8) Tobacco use disorder: -Patient counseled regarding tobacco cessation -Nicotine patch ordered (9) DVT prophylaxis: -SCDs due to GI bleeding History of Present Illness Chief Complaint: Bright red bleeding per rectum Primary Care Provider: Rangel Crane DO 53-year-old female who presents the ED for evaluation of bright bleeding per rectum. Patient reports her symptoms began around noon today. She reports a 5- 6 episodes of bright red blood per rectum. She reports there is no stool. She has some associated lower abdominal cramping. Denies nausea and vomiting. Takes lactulose for cirrhosis and typically has 3-4 bowel movements per day however reports no bowel movement for 2 days. No chest pain or shortness of breath. Denies lightheadedness, dizziness, diaphoresis, syncopal events. Has chills which are chronic for her. No fevers. Denies any urinary symptoms. In the ED, patient is hemodynamically stable and hemoglobin is found to be 16.0. CT ABD/pelvis shows retroperitoneal varices which were present on prior exam, no other acute findings. ED provider contacted GI who recommends admitting the patient overnight for colonoscopy tomorrow. Allergies Allergy/AdvReac Type Severity Reaction Status Date / Time strawberry Allergy Severe HIVES Verified 04/27/19 15:27 bee venom protein (honey bee) Allergy Unknown HIVES AND Verified 04/27/19 15:27 SWELLING pollen extracts Allergy Unknown UNKNOWN Verified 04/27/19 15:27 No Known Drug Allergies Allergy Verified 04/27/19 15:27 [place] Tar Allergy Mild Unknown Uncoded 04/27/19 15:27 Home Medications Home Medications Medication Instructions Recorded Confirmed Type dicyclomine 20 mg PO BID PRN 02/22/18 04/27/19 History fluticasone propionate [Flonase 2 spray INTRANASAL DAILY PRN 02/22/18 04/27/19 History Allergy Relief] furosemide [Lasix] 60 mg PO DAILY 02/22/18 04/27/19 History pantoprazole [Protonix] 40 mg PO BID 02/22/18 04/27/19 History ropinirole [Requip] 0.25 mg PO HS 02/22/18 04/27/19 History albuterol sulfate 90 mcg/actuation 2 puffs INH Q6H PRN 11/28/18 04/27/19 History aerosol inhaler budesonide-formoterol HFA 160 2 puffs INH BID 11/28/18 04/27/19 History mcg-4.5 mcg/actuation aerosol inhaler ferrous sulfate 325 mg (65 mg 325 mg PO BID 11/28/18 04/27/19 History iron) tablet,delayed release folic acid 1 mg tablet 1 mg PO QAM tab 11/28/18 04/27/19 History losartan 25 mg tablet 25 mg PO DAILY tab 11/28/18 04/27/19 History magnesium oxide 400 mg (as 400 mg PO BID 11/28/18 04/27/19 History magnesium oxide) tablet montelukast 10 mg tablet 10 mg PO DAILY tab 11/28/18 04/27/19 History multivitamin 1 tab PO DAILY tab 11/28/18 04/27/19 History potassium chloride 10 mEq 10 meq PO DAILY tab 11/28/18 04/27/19 History tablet,extended release rifaximin 550 mg tablet 550 mg PO BID 11/28/18 04/27/19 History thiamine HCl (vitamin B1) 100 mg 100 mg PO DAILY tab 11/28/18 04/27/19 History tablet albuterol sulfate 2.5 mg/3 mL 2.5 mg INH QID PRN 12/13/18 04/27/19 History (0.083 %) solution for nebulization dextromethorphan-guaifenesin 30 1 tab PO Q12H PRN 12/13/18 04/27/19 History mg-600 mg tablet extended [id number] hr lactulose 10 gram/15 mL oral 60 ml PO QID ml 12/13/18 04/27/19 History solution ondansetron HCl 4 mg tablet 4 mg PO TID PRN 12/13/18 04/27/19 History tramadol 50 mg tablet 50 mg PO BID PRN tab 12/13/18 04/27/19 History trazodone 150 mg tablet 150 mg PO HS 12/13/18 04/27/19 History trihexyphenidyl 5 mg tablet 2.5 mg PO DAILY 12/13/18 04/27/19 History blood sugar diagnostic #10 ea 01/25/19 01/25/19 History blood sugar diagnostic #100 ea 01/25/19 01/25/19 Rx lamotrigine 25 mg tablet 75 mg PO BID tab 01/25/19 04/27/19 History lancets 33 gauge #100 ea 01/25/19 01/25/19 History spironolactone 100 mg tablet 150 mg PO QAM tab 01/25/19 04/27/19 History triamcinolone acetonide 0.5 % 1 appln TOP BID PRN 01/25/19 04/27/19 History topical cream hydroxyzine HCl 25 mg PO BID PRN 04/27/19 04/27/19 History lurasidone [Latuda] 40 mg PO QPM 04/27/19 04/27/19 History Past Med/Surg History Medical History Alcoholic cirrhosis (Chronic) Anemia, chronic disease (Chronic) Anxiety (Chronic) Asthma (Chronic) Bipolar 1 disorder (Chronic) Chronic diastolic CHF (congestive heart failure) COPD (chronic obstructive pulmonary disease) H/O alcohol abuse (Chronic) HTN, goal below 140/90 (Chronic) Hx of migraines (Chronic) MELVI (obstructive sleep apnea) Sleep apnea (Chronic) Tobacco use disorder (Chronic) Surgical History History of spinal fusion History of total right knee replacement (Chronic) S/P cholecystectomy (Chronic) S/P tubal ligation (Chronic) Family History (Updated 04/27/19 @ 19:00 by KIRA Wallace) Sister Diabetes Social History Preferred Language: Polish Communication Ability: Effective [employer] Consultant Required: No Beliefs That Will Affect Care: None Current Living Situation: Spouse and Family Other Information That Helps Us Care for You: No Feels Safe at Home: Yes Safety Concerns: Feels Safe At This Time Smoking Status: Current every day smoker Tobacco Type: cigarettes ; Cigarettes Per Day: 20 ; Do You Dip or Chew Tobacco: No ; Second Hand Exposure: Yes ; Tobacco Cessation Education Requested by Patient: No (patient declined) Hx Alcohol Use: No Hx Substance Use: No Review of Systems Review of Systems: ROS per HPI, all other systems reviewed and negative Physical Exam Constitutional: WD/WN, vitals as above Eyes: PERRL, conjunctivae normal, anicteric sclerae ENMT: external ear and nose normal, oropharynx normal Respiratory: normal respiratory effort; no respiratory distress Auscultation: + diminished lung sounds Cardiovascular: Rate/Rhythm: regular rate and regular rhythm Vessels: normal peripheral pulses Extremities: no edema Gastrointestinal (Abdomen): normal bowel sounds, soft, nontender, no hep atosplenomegaly Musculoskeletal: no cyanosis or clubbing, extremities motor strength 5/5 Skin: no rashes, warm and dry Neurologic: PERRL, EOMI, accommodation nl, no face palsy, no dysarthria Psychiatric: A+Ox3, euthymic affect Results & Data Vital Signs (Past 12 Hours) Vital Signs Temp Pulse Pulse Resp BP BP Pulse Ox 04/27/19 18:17 68 18 119/60 92 04/27/19 17:34 76 21 152/75 H 04/27/19 17:15 70 20 04/27/19 17:14 72 16 142/65 H 04/27/19 17:13 70 16 142/65 H 96 04/27/19 16:00 67 12 04/27/19 15:18 66 66 23 127/57 L 127/57 L 96 04/27/19 15:14 72 22 04/27/19 14:21 36.7 C 81 18 146/79 H 99 Laboratory Results Short CBC 04/27/19 Range/Units 15:21 WBC 8.28 (4.8-10.8) K/uL Hgb 16.0 (12.0-16.0) g/dL Hct 43.9 (37-47) % Plt Count 132 (130-400) K/uL BMP 04/27/19 15:21 Sodium 132 L Potassium 3.7 Chloride 101 Carbon Dioxide 24 BUN 12 Creatinine 0.99 Glucose 78 Calcium 9.7 Liver Function 04/27/19 Range/Units 15:21 Total Bilirubin 1.3 H (0.2-1) mg/dl AST 36 (15-37) U/L ALT 29 (12-78) U/L Alkaline Phosphatase 123 H (45-117) U/L Albumin 4.0 (3.4-5.0) gm/dl Urine 04/27/19 Range/Units 17:30 Urine Color Yellow Urine Appearance Clear (Clear) Urine pH 6.5 (4.5-7.5) Ur Specific [place] 1.012 (1.000-1.030) Urine Protein Negative (Negative) Urine Glucose (UA) Negative (Negative) Diagnostic Findings CT ABD/PELVIS IMPRESSION: 1. No acute process within the abdomen or pelvis. 2. No bowel mucosal lesions identified although sensitivity diminished given CT technique. No bowel obstruction. No bowel wall thickening. 3. Large retroperitoneal varices which were shown on prior CT. Liver not overtly cirrhotic by CT however the varices suggest portal hypertension statistically due to liver disease. Code Status & VTE Plan Code Status Patient is a full code as per my discussion with her. VTE Prophylaxis Plan VTE Prophylaxis will be ordered: Yes Supervising Physician Co-Signing Physician Notes HISTORY: Record reviewed. Patient interviewed and examined in ED. Care coordinated with KIRA Wallace. Please refer to her documentation for complete history. Briefly, 53 YO F with history of cirrhosis, portal hypertension, and other problems as noted. Presented to ED after experiencing several episodes of rectal bleeding with fresh blood. No abdominal pain, nausea, vomiting. No recent alcohol ingestion. EXAM: General- no distress VS- pulse 72, BP 142/65 Eyes- sclerae anicteric Lungs- clear to auscultation; no respiratory distress Cardiovascular- RRR; III/ systolic murmur at base; no gallop; no JVD; no pretibial edema Abdomen- + bowel sounds, soft, nontender Extremities- no cyanosis; no calf tenderness Neuro- alert, oriented Skin- warm & dry DATA: Hgb 16.0, plts 132,000, INR 1.2. Na 132, BUN 12, creatinine 0.99. Total BR 1.3, AST 36, ALT 29, alk phos 123. Other lab studies as noted. CT abdomen + pelvis per Radiology: s/p cholecystectomy dilatation of CBD borderline splenomegaly large retroperitoneal varices no ascites no free air, pneumatosis, bowel obstruction ASSESSMENT AND PLAN: LOWER GI BLEED Several episodes of painless rectal bleeding. Hgb 16 / hemodynamically stable. Monitor H/H. Consult GI. SYSTOLIC HEART MURMUR Recent echo did not show any significant valvular pathology. Please refer to ALEC Butcher's documentation for discussion of other issues.
[2019-04-27] MEDS ORDERED: ACETAMINOPHEN 325 MG TAB PO PRN (19:11)
[2019-04-27] MEDS: MoRPHine SULFATE 2 MG/ML CARP IV PRN (19:43)
[2019-04-27] MEDS: SODIUM CHLORIDE 0.9% 1000ML 1,000 ML IV SCH (19:44)
[2019-04-27 20:57] LABS: Hematocrit (blood only) 40.3 % (37-47); Hemoglobin 14.3 g/dL (12.0-16.0)
[2019-04-27] MEDS: BUDESONIDE/FORMOTEROL FUMARATE 160/4.5 60 PUFFS/INHALER INH SCH (20:58)
[2019-04-27] MEDS: lamoTRIgine 25 MG TAB PO SCH (20:59)
[2019-04-27] MEDS: DICYCLOMINE HCL 20 MG TAB PO PRN (21:00)
[2019-04-27] MEDS: FERROUS SULFATE 325 MG TAB PO SCH (21:01)
[2019-04-27] MEDS: NICOTINE 21 MG/24 HR TDSY TD SCH (21:01)
[2019-04-27] MEDS: MAGNESIUM OXIDE 400 MG TAB PO SCH (21:01)
[2019-04-27] MEDS: LURASIDONE HCL 40 MG TAB PO SCH (21:02)
[2019-04-27] MEDS: RIFAXIMIN 550 MG TABLET PO SCH (21:02)
[2019-04-27] MEDS: TRAZODONE HCL 50 MG TAB PO SCH (21:03)
[2019-04-27] MEDS: PANTOprazole 40 MG TAB PO SCH (21:04)
[2019-04-27] MEDS: ROPINIROLE HCL 0.25 MG TABLET PO SCH (21:04)
[2019-04-28] MEDS: MoRPHine SULFATE 2 MG/ML CARP IV PRN ×3 (01:05→21:38)
[2019-04-28] MEDS: OCTREOTIDE ACETATE 500 MCG in 0.9 % SODIUM CHLORIDE 100 ML IV SCH ×2 (03:55→14:28)
[2019-04-28] MEDS: TRAMADOL HCL 50 MG TABLET PO PRN ×2 (04:04→14:06)
[2019-04-28 06:57] LABS: Hematocrit (blood only) 40.7 % (37-47); Hemoglobin 14.1 g/dL (12.0-16.0); Mean Corpuscular Hemoglobin 31.8 pg (25-34); Mean Corpuscular Hgb Conc 34.6 g/dL (32-36); Mean Corpuscular Volume 91.9 fL (80-100); Mean Platelet Volume 9.9 fL (7.4-10.4); Platelet Count 109 K/uL (130-400); RDW Standard Deviation 47.4 fL (36.4-46.3); Red Blood Count 4.43 M/uL (4.2-5.4); White Blood Count 5.21 K/uL (4.8-10.8)
[2019-04-28 07:35] LABS: BUN Creatinine Ratio 11.2 (10-20); Calcium 8.3 mg/dl (8.5-10.1); Creatinine Clr Calc Pharmacy 99.5 ml/min; Est GFR (African American) 102.2; Est GFR (Non-African American) 88.2; Potassium 3.9 mmol/L (3.5-5.1)
--- NOTE | 2019-04-28 09:19 | Gastrointestinal Consultation ---
Date of Consultation April 28, 2019 Assessment & Plan (1) BRBPR (bright red blood per rectum): Likely Hemorrhoidal or self limited diverticular bleed, need to r/o colorectal varices. her H/H is stable and normal. Plan: EGD and colonoscopy today. Continue Octreotide and ABx till after scope. (2) Alcoholic cirrhosis: Continue follow up as OP for further care. History of Present Illness Attending Physician: Carissa Azar MD 53 years old female patient with medical comorbids of COPD, CHF, HTN, Liver Cirrhosis (PATEL/MIKE), presented to the hospital with bright red bleeding per rectum, had similar presentation a year ago and EGD showed esophagitis, colonoscopy showed blood but no source seen, ? diverticular, she is known to have retroperitoneal varices, current CT scan showed no ascites, unchanged post cholecystectomy biliary dilation. She feels fine now, no bleeding when she did bowel prep. No nausea or vomiting, no diarrhea or constipation. Allergies Allergy/AdvReac Type Severity Reaction Status Date / Time strawberry Allergy Severe HIVES Verified 04/27/19 15:27 bee venom protein (honey bee) Allergy Unknown HIVES AND Verified 04/27/19 15:27 SWELLING pollen extracts Allergy Unknown UNKNOWN Verified 04/27/19 15:27 No Known Drug Allergies Allergy Verified 04/27/19 15:27 [place] Tar Allergy Mild Unknown Uncoded 04/27/19 15:27 Home Medications Home Medications Medication Instructions Recorded Confirmed Type dicyclomine 20 mg PO BID PRN 02/22/18 04/27/19 History fluticasone propionate [Flonase 2 spray INTRANASAL DAILY PRN 02/22/18 04/27/19 History Allergy Relief] furosemide [Lasix] 60 mg PO DAILY 02/22/18 04/27/19 History pantoprazole [Protonix] 40 mg PO BID 02/22/18 04/27/19 History ropinirole [Requip] 0.25 mg PO HS 02/22/18 04/27/19 History albuterol sulfate 90 mcg/actuation 2 puffs INH Q6H PRN 11/28/18 04/27/19 History aerosol inhaler budesonide-formoterol HFA 160 2 puffs INH BID 11/28/18 04/27/19 History mcg-4.5 mcg/actuation aerosol inhaler ferrous sulfate 325 mg (65 mg 325 mg PO BID 11/28/18 04/27/19 History iron) tablet,delayed release folic acid 1 mg tablet 1 mg PO QAM tab 11/28/18 04/27/19 History losartan 25 mg tablet 25 mg PO DAILY tab 11/28/18 04/27/19 History magnesium oxide 400 mg (as 400 mg PO BID 11/28/18 04/27/19 History magnesium oxide) tablet montelukast 10 mg tablet 10 mg PO DAILY tab 11/28/18 04/27/19 History multivitamin 1 tab PO DAILY tab 11/28/18 04/27/19 History potassium chloride 10 mEq 10 meq PO DAILY tab 11/28/18 04/27/19 History tablet,extended release rifaximin 550 mg tablet 550 mg PO BID 11/28/18 04/27/19 History thiamine HCl (vitamin B1) 100 mg 100 mg PO DAILY tab 11/28/18 04/27/19 History tablet albuterol sulfate 2.5 mg/3 mL 2.5 mg INH QID PRN 12/13/18 04/27/19 History (0.083 %) solution for nebulization dextromethorphan-guaifenesin 30 1 tab PO Q12H PRN 12/13/18 04/27/19 History mg-600 mg tablet extended [id number] hr lactulose 10 gram/15 mL oral 60 ml PO QID ml 12/13/18 04/27/19 History solution ondansetron HCl 4 mg tablet 4 mg PO TID PRN 12/13/18 04/27/19 History tramadol 50 mg tablet 50 mg PO BID PRN tab 12/13/18 04/27/19 History trazodone 150 mg tablet 150 mg PO HS 12/13/18 04/27/19 History trihexyphenidyl 5 mg tablet 2.5 mg PO DAILY 12/13/18 04/27/19 History blood sugar diagnostic #10 ea 01/25/19 01/25/19 History blood sugar diagnostic #100 ea 01/25/19 01/25/19 Rx lamotrigine 25 mg tablet 75 mg PO BID tab 01/25/19 04/27/19 History lancets 33 gauge #100 ea 01/25/19 01/25/19 History spironolactone 100 mg tablet 150 mg PO QAM tab 01/25/19 04/27/19 History triamcinolone acetonide 0.5 % 1 appln TOP BID PRN 01/25/19 04/27/19 History topical cream hydroxyzine HCl 25 mg PO BID PRN 04/27/19 04/27/19 History lurasidone [Latuda] 40 mg PO QPM 04/27/19 04/27/19 History Patient History Medical History Alcoholic cirrhosis (Chronic) Anemia, chronic disease (Chronic) Anxiety (Chronic) Asthma (Chronic) Bipolar 1 disorder (Chronic) Chronic diastolic CHF (congestive heart failure) COPD (chronic obstructive pulmonary disease) H/O alcohol abuse (Chronic) HTN, goal below 140/90 (Chronic) Hx of migraines (Chronic) MELVI (obstructive sleep apnea) Sleep apnea (Chronic) Tobacco use disorder (Chronic) Surgical History History of spinal fusion History of total right knee replacement (Chronic) S/P cholecystectomy (Chronic) S/P tubal ligation (Chronic) Family History (Updated 04/27/19 @ 19:00 by KIRA Wallace) Sister Diabetes Social History Preferred Language: [place]i Communication Ability: Effective Transcript Clerk Required: No Beliefs That Will Affect Care: None Current Living Situation: Spouse and Family Other Information That Helps Us Care for You: No Feels Safe at Home: Yes Safety Concerns: Feels Safe At This Time Smoking Status: Current every day smoker Tobacco Type: cigarettes ; Cigarettes Per Day: 20 ; Do You Dip or Chew Tobacco: No ; Second Hand Exposure: Yes ; Tobacco Cessation Education Requested by Patient: No (patient declined) Hx Alcohol Use: No Hx Substance Use: No Review of Systems Constitutional: no fever, no chills, no fatigue and no weight loss Eyes: no eye pain and no worsening vision Ear, Nose, Mouth, Throat: no tinnitus, no dizziness, no nasal discharge and no epistaxis Respiratory: no cough, no dyspnea, no dyspnea on exertion and no wheezing Cardiovascular: no chest pain, no orthopnea, no palpitations and no edema Gastrointestinal: as per Subjective / HPI Genitourinary: no dysuria, no urinary frequency, no urinary incontinence and no hematuria Musculoskeletal: no stiffness and no myalgia Neurologic: no localized weakness, no paralysis, no tremor(s) and no headache(s) Endocrine: no polydipsia and no polyuria Hematologic / Lymphatic: no easy bleeding and no night sweats Physical Exam Constitutional: + well hydrated, cooperative and comfortable Eyes: PERRL, conjunctivae normal, anicteric sclerae ENMT: external ear and nose normal, oropharynx normal Neck: normal visual inspection and trachea midline Respiratory: normal respiratory effort, lungs clear to auscultation Auscultation: no wheezes Cardiovascular: RRR, no murmur, no edema Gastrointestinal (Abdomen): normal bowel sounds, soft, nontender, no hepatosplenomegaly Musculoskeletal: no cyanosis or clubbing, extremities motor strength 5/5 Skin: no rashes, warm and dry Neurologic: awake; no focal motor deficits Motor/Sensory: no tremor Results & Data Vital Signs (Past 12 Hours) Vital Signs Temp Pulse Pulse Resp BP BP Pulse Ox 04/28/19 07:18 36.9 C 65 16 108/67 95 04/28/19 07:02 64 04/28/19 03:33 36.6 C 73 20 117/68 93 04/27/19 23:03 36.5 C 63 20 109/61 94 Laboratory Results Laboratory Results - last 24 hr 04/27/19 04/27/19 04/27/19 15:21 15:21 15:21 WBC 8.28 RBC 4.87 Hgb 16.0 Hct 43.9 MCV 90.1 MCH 32.9 MCHC 36.4 H RDW Std Deviation 45.0 RDW Coeff of [place] 13.7 Plt Count 132 MPV 9.7 Immature Gran % (Auto) 0.2 Neut % (Auto) 63.6 Lymph % (Auto) 25.7 [place] % (Auto) 8.7 Eos % (Auto) 1.6 Baso % (Auto) 0.2 Immature Gran # (Auto) 0.02 Neut # (Auto) 5.26 Lymph # (Auto) 2.13 [place] # (Auto) 0.72 H Eos # (Auto) 0.13 Baso # (Auto) 0.02 PT 12.3 H INR 1.2 H APTT 29.2 PTT Ratio 1.1 Sodium 132 L Potassium 3.7 Chloride 101 Carbon Dioxide 24 Anion Gap 7.0 BUN 12 Creatinine 0.99 Est Cr Clr Drug Dosing 77.1 Est GFR ( Amer) 75.4 Est GFR (Non-Af Amer) 65.1 BUN/Creatinine Ratio 12.1 Glucose 78 Lactate Calcium 9.7 Magnesium 1.9 Total Bilirubin 1.3 H AST 36 ALT 29 Alkaline Phosphatase 123 H Total Protein 9.0 H Albumin 4.0 Globulin 5.0 H Albumin/Globulin Ratio 0.8 L Urine Color Urine Appearance Urine pH Ur Specific [place] Urine Protein Urine Glucose (UA) Urine Ketones Urine Blood Urine Nitrite Urine Bilirubin Urine Urobilinogen Ur Leukocyte Esterase Blood Type Antibody Screen 04/27/19 04/27/19 04/27/19 15:21 15:31 17:30 WBC RBC Hgb Hct MCV MCH MCHC RDW Std Deviation RDW Coeff of Gregg Plt Count MPV Immature Gran % (Auto) Neut % (Auto) Lymph % (Auto) [place] % (Auto) Eos % (Auto) Baso % (Auto) Immature Gran # (Auto) Neut # (Auto) Lymph # (Auto) [place] # (Auto) Eos # (Auto) Baso # (Auto) PT INR APTT PTT Ratio Sodium Potassium Chloride Carbon Dioxide Anion Gap BUN Creatinine Est Cr Clr Drug Dosing Est GFR ( Amer) Est GFR (Non-Af Amer) BUN/Creatinine Ratio Glucose Lactate 1.7 Calcium Magnesium Total Bilirubin AST ALT Alkaline Phosphatase Total Protein Albumin Globulin Albumin/Globulin Ratio Urine Color Yellow Urine Appearance Clear Urine pH 6.5 Ur Specific [place] 1.012 Urine Protein Negative Urine Glucose (UA) Negative Urine Ketones Negative Urine Blood Negative Urine Nitrite Negative Urine Bilirubin Negative Urine Urobilinogen Negative Ur Leukocyte Esterase Negative Blood Type O Positive Antibody Screen NEGATIVE 04/27/19 04/28/19 04/28/19 20:51 06:39 06:39 WBC 5.21 RBC 4.43 Hgb 14.3 14.1 Hct 40.3 40.7 MCV 91.9 MCH 31.8 MCHC 34.6 RDW Std Deviation 47.4 H RDW Coeff of [place] 14.0 Plt Count 109 L MPV 9.9 Immature Gran % (Auto) Neut % (Auto) Lymph % (Auto) [place] % (Auto) Eos % (Auto) Baso % (Auto) Immature Gran # (Auto) Neut # (Auto) Lymph # (Auto) [place] # (Auto) Eos # (Auto) Baso # (Auto) PT INR APTT PTT Ratio Sodium 138 Potassium 3.9 Chloride 108 H Carbon Dioxide 25 Anion Gap 5.0 BUN 9 Creatinine 0.77 Est Cr Clr Drug Dosing 99.5 Est GFR ( Amer) 102.2 Est GFR (Non-Af Amer) 88.2 BUN/Creatinine Ratio 11.2 Glucose 93 Lactate Calcium 8.3 L Magnesium Total Bilirubin AST ALT Alkaline Phosphatase Total Protein Albumin Globulin Albumin/Globulin Ratio Urine Color Urine Appearance Urine pH Ur Specific [place] Urine Protein Urine Glucose (UA) Urine Ketones Urine Blood Urine Nitrite Urine Bilirubin Urine Urobilinogen Ur Leukocyte Esterase Blood Type Antibody Screen
[2019-04-28] MEDS: SODIUM CHLORIDE 0.9% 1000ML 1,000 ML IV SCH (09:23)
[2019-04-28] MEDS ORDERED: PROPOFOL IV EMULSION 10 MG/ML 20 ML VIAL IV ONE (10:19)
[2019-04-28] MEDS ORDERED: LIDOCAINE HCL 2% 2 ML VIAL/AMP(20MG/ML) INFIL ONE (10:19)
[2019-04-28] MEDS ORDERED: MICONAZOLE NITRATE POWDER 43 GM EXT PRN (10:37)
--- NOTE | 2019-04-28 10:43 | Anesthesiology Consultation ---
Date of Service April 28, 2019 Assessment & Plan (1) Encounter for pre-operative examination: Chart Review Chart Review: Acceptable Risk for Surgery and Patient NOT seen in Pre Admission Testing Consults Requested none ASA ASA4 Proposed Anesthesia Anesthesia Type: General Regional Laterality: Left Risk / Benefits Reviewed With: PT / POA / Parent / Guardian, Accepts Plan and Informed Consent Obtained History Surgery Operation Date: 04/28/19 09:00 Proposed Procedures p Colonoscopy EGD Dr. Nation - Jewel Nation MD Height/Weight Height: 5 ft 5 in Weight: 100.9 kg Allergies Allergy/AdvReac Type Severity Reaction Status Date / Time strawberry Allergy Severe HIVES Verified 04/27/19 15:27 bee venom protein (honey bee) Allergy Unknown HIVES AND Verified 04/27/19 15:27 SWELLING pollen extracts Allergy Unknown UNKNOWN Verified 04/27/19 15:27 No Known Drug Allergies Allergy Verified 04/27/19 15:27 [place] Tar Allergy Mild Unknown Uncoded 04/27/19 15:27 Medications Home Medications Medication Instructions Recorded Confirmed Last Taken dicyclomine 20 mg PO BID PRN 02/22/18 04/27/19 09/06/18 fluticasone propionate [Flonase 2 spray INTRANASAL DAILY PRN 02/22/18 04/27/19 09/05/18 Allergy Relief] furosemide [Lasix] 60 mg PO DAILY 02/22/18 04/27/19 04/27/19 pantoprazole [Protonix] 40 mg PO BID 02/22/18 04/27/19 09/06/18 ropinirole [Requip] 0.25 mg PO HS 02/22/18 04/27/19 09/05/18 albuterol sulfate 90 mcg/actuation 2 puffs INH Q6H PRN 11/28/18 04/27/19 Unknown aerosol inhaler budesonide-formoterol HFA 160 2 puffs INH BID 11/28/18 04/27/19 Unknown mcg-4.5 mcg/actuation aerosol inhaler ferrous sulfate 325 mg (65 mg 325 mg PO BID 11/28/18 04/27/19 Unknown iron) tablet,delayed release folic acid 1 mg tablet 1 mg PO QAM tab 11/28/18 04/27/19 Unknown losartan 25 mg tablet 25 mg PO DAILY tab 11/28/18 04/27/19 Unknown magnesium oxide 400 mg (as 400 mg PO BID 11/28/18 04/27/19 Unknown magnesium oxide) tablet montelukast 10 mg tablet 10 mg PO DAILY tab 11/28/18 04/27/19 Unknown multivitamin 1 tab PO DAILY tab 11/28/18 04/27/19 Unknown potassium chloride 10 mEq 10 meq PO DAILY tab 11/28/18 04/27/19 Unknown tablet,extended release rifaximin 550 mg tablet 550 mg PO BID 11/28/18 04/27/19 Unknown thiamine HCl (vitamin B1) 100 mg 100 mg PO DAILY tab 11/28/18 04/27/19 Unknown tablet albuterol sulfate 2.5 mg/3 mL 2.5 mg INH QID PRN 12/13/18 04/27/19 Unknown (0.083 %) solution for nebulization dextromethorphan-guaifenesin 30 1 tab PO Q12H PRN 12/13/18 04/27/19 Unknown mg-600 mg tablet extended [id number] hr lactulose 10 gram/15 mL oral 60 ml PO QID ml 12/13/18 04/27/19 04/27/19 solution ondansetron HCl 4 mg tablet 4 mg PO TID PRN 12/13/18 04/27/19 Unknown tramadol 50 mg tablet 50 mg PO BID PRN tab 12/13/18 04/27/19 Unknown trazodone 150 mg tablet 150 mg PO HS 12/13/18 04/27/19 Unknown trihexyphenidyl 5 mg tablet 2.5 mg PO DAILY 12/13/18 04/27/19 Unknown blood sugar diagnostic #10 ea 01/25/19 01/25/19 Unknown blood sugar diagnostic #100 ea 01/25/19 01/25/19 Unknown lamotrigine 25 mg tablet 75 mg PO BID tab 01/25/19 04/27/19 Unknown lancets 33 gauge #100 ea 01/25/19 01/25/19 Unknown spironolactone 100 mg tablet 150 mg PO QAM tab 01/25/19 04/27/19 Unknown triamcinolone acetonide 0.5 % 1 appln TOP BID PRN 01/25/19 04/27/19 Unknown topical cream hydroxyzine HCl 25 mg PO BID PRN 04/27/19 04/27/19 Unknown lurasidone [Latuda] 40 mg PO QPM 04/27/19 04/27/19 Unknown Active Medications Generic Name Dose Route Start Last Admin Trade Name Freq PRN Reason Stop Dose Admin Budesonide/Formoterol Fumarate 2 puffs 04/27/19 21:00 04/27/19 20:58 Symbicort 160mcg/4.5mcg INH 05/27/19 20:59 2 puffs BID ZULLY Administration Dicyclomine HCl 20 mg 04/27/19 19:11 04/27/19 21:00 Bentyl PO 05/27/19 19:10 20 mg BID PRN Administration Abdominal Pain Ferrous Sulfate 325 mg 04/27/19 21:00 04/27/19 21:01 Feosol PO 05/27/19 20:59 325 mg BID ZULLY Administration Hydroxyzine HCl 25 mg 04/27/19 19:11 04/27/19 21:00 Vistaril PO 05/27/19 19:10 25 mg BID PRN Administration anxiety Octreotide Acetate 500 mcg/ 105 mls @ 10 mls/hr 04/27/19 17:30 04/28/19 03:55 Sodium Chloride IV 05/27/19 17:29 10 mls/hr .[id number] ZULLY Administration Sodium Chloride 1,000 mls @ 80 mls/hr 04/27/19 19:15 04/28/19 09:23 Nss 1000ml IV 05/27/19 19:14 80 mls/hr .[id number] ZULLY Administration Lamotrigine 75 mg 04/27/19 21:00 04/27/19 20:59 Lamictal PO 05/27/19 20:59 75 mg BID ZULLY Administration Lurasidone HCl 40 mg 04/27/19 21:00 04/27/19 21:02 Latuda PO 05/27/19 20:59 40 mg QPM ZULLY Administration Magnesium Oxide 400 mg 04/27/19 21:00 04/27/19 21:01 Mag-Ox PO 05/27/19 20:59 400 mg BID ZULLY Administration Morphine Sulfate 2 mg 04/27/19 19:11 04/28/19 01:05 Morphine Sulfate IV 05/11/19 19:10 2 mg Q4H PRN Administration Pain Nicotine 21 mg 04/27/19 19:11 04/27/19 21:01 Nicoderm Cq TD 05/27/19 19:10 21 mg QAM ZULLY Administration Pantoprazole Sodium 40 mg 04/27/19 21:00 04/27/19 21:04 Protonix PO 05/27/19 20:59 40 mg BID ZULLY Administration Rifaximin 550 mg 04/27/19 21:00 04/27/19 21:02 Xifaxan PO 05/27/19 20:59 550 mg BID ZULLY Administration Ropinirole HCl 0.25 mg 04/27/19 21:00 04/27/19 21:04 Requip PO 05/27/19 20:59 0.25 mg HS ZULLY Administration Tramadol HCl 50 mg 04/27/19 19:11 04/28/19 04:04 Ultram PO 05/27/19 19:10 50 mg BID PRN Administration Pain Trazodone HCl 150 mg 04/27/19 21:00 04/27/19 21:03 Desyrel PO 05/27/19 20:59 150 mg HS ZULLY Administration NPO Date Last Intake of Fluids: 04/28/19 Time Last Intake of Fluids: 01:00 Date Last Intake of Solids: 04/27/19 Time Last Intake of Solids: 13:00 Past Medical History Medical History Alcoholic cirrhosis (Chronic) Anemia, chronic disease (Chronic) Anxiety (Chronic) Asthma (Chronic) Bipolar 1 disorder (Chronic) Chronic diastolic CHF (congestive heart failure) COPD (chronic obstructive pulmonary disease) H/O alcohol abuse (Chronic) HTN, goal below 140/90 (Chronic) Hx of migraines (Chronic) MELVI (obstructive sleep apnea) Sleep apnea (Chronic) Tobacco use disorder (Chronic) Exercise / Class Metabolic Activity III < 4 Walking/Shop/Light housework Negative for chest pain - positive for sob Past Family History Family History Sister Diabetes Past Surgical History Surgical History History of spinal fusion History of total right knee replacement (Chronic) S/P cholecystectomy (Chronic) S/P tubal ligation (Chronic) Past Anesthesia History No Hx of Anesthesia Complications History of PONV No Hx of PONV Social History Smoking Status: Current every day smoker tobacco type: cigarettes Smoking cigarettes per day: 20 Do You Dip or Chew Tobacco: No Hx Alcohol Use: No Hx Substance Use: No Review of Systems Patient denies active symptoms of GERD. denies n/v positive for blood per rectum Physical Exam Vital Signs Last Vital Signs Temp 36.9 C 04/28/19 07:18 Pulse 65 04/28/19 07:18 Resp 16 04/28/19 07:18 BP 108/67 04/28/19 07:18 Pulse Ox 95 04/28/19 07:18 Constitutional + obese ENMT Mouth: + edentulous; no TMJ abnormality and oral opening not small Thyromental Distance: > or= 3.5 Finger Breadths Mallampati Class: III Neck normal visual inspection and + short neck; neck extension not limited Respiratory normal respiratory effort Auscultation: + crackles (At b/l bases) Cardiovascular Rate/Rhythm: regular rate and regular rhythm Heart Sounds: + murmur Neurologic moves all extremities Psychiatric Orientation: alert and oriented x 3 Testing Laboratory Results 04/28/19 06:39 04/28/19 06:39 PT 12.3 Seconds (9.0-12.0) H 04/27/19 15:21 INR 1.2 (0.9-1.1) H 04/27/19 15:21 APTT 29.2 Seconds (21.0-31.0) 04/27/19 15:21 Urine Color Yellow 04/27/19 17:30 Urine Appearance Clear (Clear) 04/27/19 17:30 Urine pH 6.5 (4.5-7.5) 04/27/19 17:30 Ur Specific [place] 1.012 (1.000-1.030) 04/27/19 17:30 Urine Protein Negative (Negative) 04/27/19 17:30 Urine Glucose (UA) Negative (Negative) 04/27/19 17:30 Urine Ketones Negative (Negative) 04/27/19 17:30 Urine Nitrite Negative (Negative) 04/27/19 17:30 Ur Leukocyte Esterase Negative (Negative) 04/27/19 17:30 Blood Type O Positive 04/27/19 15:31 Antibody Screen NEGATIVE 04/27/19 15:31 Electrocardiogram Date: 09/06/18 Findings: + NSR @ (73)
[2019-04-28] MEDS ORDERED: ATROPINE SULFATE 0.1 MG/ML 10ML SYR IV PRN (11:02)
[2019-04-28] MEDS ORDERED: fentaNYL citrate 100 MCG/2 ML VIAL IV PRN (11:02)
[2019-04-28] MEDS ORDERED: ONDANSETRON INJ 2 MG/ML 2 ML VIAL IV PRN (11:02)
[2019-04-28] MEDS ORDERED: ePHEDrine sulfate 50 MG/ML AMP IV PRN (11:02)
[2019-04-28] MEDS ORDERED: SUCCINYLCHOLINE 100MG/5ML SYR ONE (11:04)
[2019-04-28] MEDS ORDERED: ROCURONIUM BROMIDE 10 MG/ML 5 ML VIAL ONE (11:04)
[2019-04-28] MEDS ORDERED: fentaNYL citrate 100 MCG/2 ML VIAL ONE (11:18)
--- NOTE | 2019-04-28 11:21 | XRay Report ---
XR chest 1V portable HISTORY: 53 years-old Female New oxygen requirement, SOB, scheduled for OR proc acute shortness of b reath COMPARISON: Chest radiograph 02/22/2018, CT abdomen and pelvis 04/27/2019 TECHNIQUE: Portable AP view of the chest FINDINGS: Cardiac silhouette is mildly enlarged, unchanged. Calcified left hilar lymph nodes. Mild chronic inte rstitial coarsening of the lung bases. No pneumothorax, pleural effusion, overt pulmonary edema or ai rspace consolidation typical for pneumonia. Degenerative changes of the shoulders and spine. Right sh oulder rotator cuff calcific tendinosis. IMPRESSION: Mild cardiomegaly without acute process. ACT 112: Negative or not required by law. The above report was generated using voice recognition software. It may contain grammatical, syntax o r spelling errors. Electronically signed by: Shady Carter M.D. 04/28/2019 11:19 AM
--- NOTE | 2019-04-28 11:54 | Operative Report ---
Post Operative Report Pre & Post Diagnosis Operation Date: 04/28/19 09:00 Pre-Op Diagnosis: Hiatal Hernia Post-Op Diagnosis: Hiatal Hernia I identified the patient and participated in the time-out.: Yes Procedure Operation Date: 04/28/19 09:00 Actual Procedures p Colonoscopy EGD Dr. Nation(Not Applicable) - Jewel Nation MD Surgeon Jewel Nation MD Teenage Babysitter None Estimated Blood Loss 0 Findings See Below (Large ascending colon AVM, treated with APC and clips) Specimens None Description of Procedure Colonoscopy and EGD I attest to the content of the Intraoperative Record and any orders documented therein. Any exceptions are noted below.
[2019-04-28] MEDS ORDERED: ONDANSETRON INJ 2 MG/ML 2 ML VIAL ONE (12:00)
--- NOTE | 2019-04-28 12:43 | Anesthesiology Progress Note ---
Date of Service April 28, 2019 Anesthesia Post Procedure Vital Signs Vital Signs: Temp Pulse Pulse Pulse Resp BP BP 04/28/19 12:27 76 18 120/63 04/28/19 12:25 77 16 04/28/19 12:22 76 13 117/67 04/28/19 12:20 76 17 04/28/19 12:17 77 19 118/59 L 04/28/19 12:15 78 22 04/28/19 12:12 78 20 112/62 04/28/19 12:10 36.9 C 80 82 20 118/59 L 118/59 L 04/28/19 07:18 36.9 C 65 16 04/28/19 07:02 64 04/28/19 03:33 36.6 C 73 20 04/27/19 23:03 36.5 C 63 20 109/61 04/27/19 19:32 37 C 68 20 137/72 04/27/19 19:30 66 04/27/19 18:17 68 18 119/60 04/27/19 17:34 76 21 152/75 H 04/27/19 17:15 70 20 04/27/19 17:14 72 16 142/65 H 04/27/19 17:13 70 16 142/65 H 04/27/19 16:00 67 12 04/27/19 15:18 66 66 23 127/57 L 127/57 L 04/27/19 15:14 72 22 04/27/19 14:21 36.7 C 81 18 146/79 H BP Pulse Ox 04/28/19 12:27 98 04/28/19 12:25 99 04/28/19 12:22 99 04/28/19 12:20 98 04/28/19 12:17 98 04/28/19 12:15 99 04/28/19 12:12 99 04/28/19 12:10 98 04/28/19 07:18 108/67 95 04/28/19 07:02 04/28/19 03:33 117/68 93 04/27/19 23:03 94 04/27/19 19:32 93 04/27/19 19:30 04/27/19 18:17 92 04/27/19 17:34 04/27/19 17:15 04/27/19 17:14 04/27/19 17:13 96 04/27/19 16:00 04/27/19 15:18 96 04/27/19 15:14 04/27/19 14:21 99 Pain Intensity Abdomen: Pain Intensity: 0 Transfer of Care Handoff Completed per policy Notes Mental Status: alert / awake / arousable and participated in evaluation Patient Amnestic to Procedure: Yes Nausea / Vomiting: adequately controlled Pain: adequately controlled Airway Patency, RR, SpO2: stable & adequate BP & HR: stable & adequate Hydration State: stable & adequate Anesthetic Complications: no major complications apparent and Pt Satisfied with anesthetic care
--- NOTE | 2019-04-28 12:50 | GI REPORT ---
Patient Name: Marcia Mcgowan Procedure Date: 04/28/2019 9:09 AM Date of : 1965 Admit Type: Inpatient Age: 53 Gender: Female Attending MD: Jewel Nation MD Procedure: Upper GI endoscopy Providers: Jewel Nation MD Referring MD: Breanna Abreu Indications: Hematochezia Medicines: General Anesthesia Complications: No immediate complications. Estimated Blood Loss: Estimated blood loss: none. Procedure: Pre-Anesthesia Assessment: - Prior to the procedure, a History and Physical was performed, and patient medications, allergies and sensitivities were reviewed. The patient's tolerance of previous anesthesia was reviewed. - The risks and benefits of the procedure and the sedation options and risks were discussed with the patient. All questions were answered and informed consent was obtained. - Patient identification and proposed procedure were verified prior to the procedure by the physician and the nurse. The procedure was verified in the procedure room. - Pre-procedure physical examination revealed no contraindications to sedation. After obtaining informed consent, the endoscope was passed under direct vision. Throughout the procedure, the patient's blood pressure, pulse, and oxygen saturations were monitored continuously. The Endoscope was introduced through the mouth, and advanced to the second part of duodenum. The upper GI endoscopy was accomplished without difficulty. The patient tolerated the procedure well. Findings: A small hiatal hernia was present. There is no endoscopic evidence of varices in the entire esophagus. There is no endoscopic evidence of varices in the entire examined stomach. No bleeding seen. The duodenal bulb and second portion of the duodenum were normal. Impression: - Small hiatal hernia. - Normal stomach, duodenal bulb and second portion of the duodenum. Recommendation: - Repeat upper endoscopy in 1 year for surveillance on varices. - Perform a colonoscopy today. Jewel Nation MD 04/28/2019 12:50:09 PM This report has been signed electronically. Note Initiated On: 04/28/2019 9:09 AM Number of Addenda: 0 I attest to the content of the Intraoperative Record and orders documented therein, exceptions below {[id number]}
--- NOTE | 2019-04-28 13:00 | GI REPORT ---
Patient Name: Marcia Mcgowan Procedure Date: 04/28/2019 9:08 AM Date of : 1965 Admit Type: Inpatient Age: 53 Gender: Female Attending MD: Jewel Nation MD Procedure: Colonoscopy Providers: Jewel Nation MD Referring MD: Breanna Abreu Indications: Rectal bleeding Medicines: General Anesthesia Complications: No immediate complications. Estimated Blood Loss: Estimated blood loss: none. Procedure: Pre-Anesthesia Assessment: - Prior to the procedure, a History and Physical was performed, and patient medications, allergies and sensitivities were reviewed. The patient's tolerance of previous anesthesia was reviewed. - The risks and benefits of the procedure and the sedation options and risks were discussed with the patient. All questions were answered and informed consent was obtained. - Patient identification and proposed procedure were verified prior to the procedure by the physician and the nurse. The procedure was verified in the procedure room. - Pre-procedure physical examination revealed no contraindications to sedation. After I obtained informed consent, the scope was passed under direct vision. Throughout the procedure, the patient's blood pressure, pulse, and oxygen saturations were monitored continuously. The Scope was introduced through the anus and advanced to the terminal ileum. The colonoscopy was performed without difficulty. The patient tolerated the procedure well. The quality of the bowel preparation was poor. The ileocecal valve, appendiceal orifice, and rectum were photographed. Findings: The perianal and digital rectal examinations were normal. The terminal ileum appeared normal. A large amount of semi-liquid brown stool was found in the entire colon, precluding visualization. A single large (15 mm) angioectasia with bleeding on contact was found in the ascending colon. Vaporization for hemostasis using argon plasma was successful. Seven hemostatic clips were successfully placed (MR conditional). There was no bleeding at the end of the procedure. Non-bleeding internal hemorrhoids were found during retroflexion. The hemorrhoids were small. Impression: - Preparation of the colon was poor. - The examined portion of the ileum was normal. - A single large colonic angioectasia. Treated with argon plasma coagulation (APC). Clips (MR conditional) were placed. - Non-bleeding internal hemorrhoids. Recommendation: - Return patient to hospital walls for ongoing care. - Clear liquid diet today then advance tomorrow as tolerated. - Monitor H/H. - Repeat colonoscopy in 6 months because the bowel preparation was poor. Jewel Nation MD 04/28/2019 12:59:28 PM This report has been signed electronically. Note Initiated On: 04/28/2019 9:08 AM Number of Addenda: 0 I attest to the content of the Intraoperative Record and orders documented therein, exceptions below {[id number]}
--- NOTE | 2019-04-28 13:11 | Progress Note ---
Date of Service April 28, 2019 Subjective EGD unremarkable, colonoscopy with large right sided AVM treated with APC and clips. No bleeding. Plan: Observe till tomorrow, if remains stable then can be discharged home. Clear liquids today and advance tomorrow as tolerated. Recall GI if needed. Results & Data Vital Signs (Past 12 Hours) Vital Signs Temp Pulse Pulse Pulse Resp BP BP 04/28/19 12:55 69 13 04/28/19 12:50 36.4 C L 69 14 04/28/19 12:47 70 14 118/65 04/28/19 12:45 70 14 04/28/19 12:42 71 13 116/62 04/28/19 12:40 72 25 H 04/28/19 12:37 71 16 117/60 04/28/19 12:35 70 19 04/28/19 12:32 71 16 116/64 04/28/19 12:30 78 20 04/28/19 12:27 76 18 120/63 04/28/19 12:25 77 16 04/28/19 12:22 76 13 117/67 04/28/19 12:20 76 17 04/28/19 12:17 77 19 118/59 L 04/28/19 12:15 78 22 04/28/19 12:12 78 20 112/62 04/28/19 12:10 36.9 C 80 82 20 118/59 L 118/59 L 04/28/19 07:18 36.9 C 65 16 04/28/19 07:02 64 04/28/19 03:33 36.6 C 73 20 BP Pulse Ox 04/28/19 12:55 95 04/28/19 12:50 95 04/28/19 12:47 94 04/28/19 12:45 97 04/28/19 12:42 95 04/28/19 12:40 96 04/28/19 12:37 95 04/28/19 12:35 96 04/28/19 12:32 96 04/28/19 12:30 99 04/28/19 12:27 98 04/28/19 12:25 99 04/28/19 12:22 99 04/28/19 12:20 98 04/28/19 12:17 98 04/28/19 12:15 99 04/28/19 12:12 99 04/28/19 12:10 98 04/28/19 07:18 108/67 95 04/28/19 07:02 04/28/19 03:33 117/68 93
[2019-04-28] MEDS: POTASSIUM CHLORIDE 10 MEQ TABCR PO SCH (13:50)
[2019-04-28] MEDS: MONTELUKAST SODIUM 10 MG TABLET PO SCH (13:50)
[2019-04-28] MEDS: TRIHEXYPHENIDYL HCL 5 MG TAB PO SCH (13:50)
[2019-04-28] MEDS: NICOTINE 21 MG/24 HR TDSY TD SCH (13:50)
[2019-04-28] MEDS: PANTOprazole 40 MG TAB PO SCH ×2 (13:51→20:28)
[2019-04-28] MEDS: THIAMINE HCL 100 MG TAB PO SCH (13:51)
[2019-04-28] MEDS: BUDESONIDE/FORMOTEROL FUMARATE 160/4.5 60 PUFFS/INHALER INH SCH ×2 (13:51→20:25)
[2019-04-28] MEDS: RIFAXIMIN 550 MG TABLET PO SCH ×2 (13:51→20:26)
[2019-04-28] MEDS: MULTIVITAMIN TAB PO SCH (13:52)
[2019-04-28] MEDS: LOSARTAN POTASSIUM 25 MG TAB PO SCH (13:52)
[2019-04-28] MEDS: MAGNESIUM OXIDE 400 MG TAB PO SCH ×2 (13:52→20:26)
[2019-04-28] MEDS: FERROUS SULFATE 325 MG TAB PO SCH ×2 (13:52→20:27)
[2019-04-28] MEDS: lamoTRIgine 25 MG TAB PO SCH ×2 (13:53→20:25)
[2019-04-28] MEDS: FOLIC ACID 1 MG TAB PO SCH (13:53)
[2019-04-28] MEDS ORDERED: GLUCAGON FOR INJ 1 MG VIAL SQ PRN (14:42)
[2019-04-28] MEDS ORDERED: DEXTROSE 50% 50 ML SYRINGE IV PRN (14:42)
[2019-04-28] MEDS ORDERED: GLUCOSE 10 TABS/TUBE PO PRN (14:42)
[2019-04-28] MEDS ORDERED: cefTRIAXone SODIUM 2,000 MG/70 ML BAG IV SCH (17:00)
[2019-04-28] MEDS: INSULIN ASPART 100 UNITS/ML 3 ML PEN SC SCH ×2 (17:29→21:00)
[2019-04-28] MEDS: ROPINIROLE HCL 0.25 MG TABLET PO SCH (20:27)
[2019-04-28] MEDS: LURASIDONE HCL 40 MG TAB PO SCH (20:27)
[2019-04-28] MEDS: TRAZODONE HCL 50 MG TAB PO SCH (20:28)
[2019-04-28] MEDS: DICYCLOMINE HCL 20 MG TAB PO PRN (21:06)
[2019-04-29] MEDS: OCTREOTIDE ACETATE 500 MCG in 0.9 % SODIUM CHLORIDE 100 ML IV SCH ×2 (00:53→14:12)
[2019-04-29] MEDS: TRAMADOL HCL 50 MG TABLET PO PRN ×2 (07:25→23:27)
[2019-04-29] MEDS: INSULIN ASPART 100 UNITS/ML 3 ML PEN SC SCH ×2 (07:53→12:25)
[2019-04-29] MEDS: POTASSIUM CHLORIDE 10 MEQ TABCR PO SCH (07:55)
[2019-04-29] MEDS: LOSARTAN POTASSIUM 25 MG TAB PO SCH (07:56)
[2019-04-29] MEDS: FOLIC ACID 1 MG TAB PO SCH (07:56)
[2019-04-29] MEDS: THIAMINE HCL 100 MG TAB PO SCH (07:56)
[2019-04-29] MEDS: PANTOprazole 40 MG TAB PO SCH ×2 (07:56→21:49)
[2019-04-29] MEDS: TRIHEXYPHENIDYL HCL 5 MG TAB PO SCH (07:57)
[2019-04-29] MEDS: MONTELUKAST SODIUM 10 MG TABLET PO SCH (07:57)
[2019-04-29] MEDS: FERROUS SULFATE 325 MG TAB PO SCH ×2 (07:57→21:49)
[2019-04-29] MEDS: RIFAXIMIN 550 MG TABLET PO SCH ×2 (07:58→21:49)
[2019-04-29] MEDS: MULTIVITAMIN TAB PO SCH (07:58)
[2019-04-29] MEDS: MAGNESIUM OXIDE 400 MG TAB PO SCH ×2 (07:58→21:50)
[2019-04-29] MEDS: lamoTRIgine 25 MG TAB PO SCH ×2 (07:58→21:49)
[2019-04-29] MEDS: BUDESONIDE/FORMOTEROL FUMARATE 160/4.5 60 PUFFS/INHALER INH SCH ×2 (07:58→21:49)
[2019-04-29] MEDS: NICOTINE 21 MG/24 HR TDSY TD SCH (07:59)
[2019-04-29] MEDS: CARBOHYDRATES FOR HYPOGLYCEMIA PO PRN ×2 (11:25→14:52)
[2019-04-29] MEDS: GLUCOSE 40% GEL 15 GM TUBE PO PRN ×3 (11:26→14:57)
[2019-04-29] MEDS: DICYCLOMINE HCL 20 MG TAB PO PRN (11:28)
--- NOTE | 2019-04-29 12:22 | Hospitalist Progress Note ---
Date of Service April 28, 2019 Assessment & Plan (1) BRBPR (bright red blood per rectum): Presented with bright red blood per rectum/lower GI bleed, status post colonoscopy today, shows large single colonic AVM(arteriovenous malformation) at ascending colon, no active bleeding noted Patient with history of GI bleed in October 2017; EGD showed esophagitis and colonoscopy showed blood within the colon, diverticulosis in the left colon; - hb stable in 15 GI consulted . Status post hemostatic clip placement by GI Patient tolerated procedure well No further GI bleed, Vitals been stable Diet advanced to clears, tolerating well Observe overnight, if no further episode of GI bleeding, can be discharged home tomorrow (2) Alcoholic cirrhosis: CT ABD/pelvis shows retroperitoneal varices which were present on prior exam, no other acute findings ordered empiric IV ceftriaxone for SBP/in setting of GI bleed prophylaxis and octreotide drip. -no sign of hepatic encephalopathy or liver decompensation -Continue Xifaxan -Hold lactulose while receiving colonoscopy prep (3) COPD (chronic obstructive pulmonary disease): -No signs of acute exacerbation -Continue home inhalers (4) Chronic diastolic CHF (congestive heart failure): -Currently appears euvolemic on exam diuretics resumed (5) HTN, goal below 140/90: -BP controlled, continue losartan (6) Anxiety: (7) Bipolar 1 disorder: -Patient on multiple psychiatric medications including hydroxyzine, Latud a, trazodone, Lamictal, trihexyphenidyl (8) Tobacco use disorder: -Patient counseled regarding tobacco cessation -Nicotine patch ordered (9) DVT prophylaxis: -SCD.brad pt is encouraged to ambulate DISPOSITION : plan to dc home tomorrow if remains medically stable Subjective Late entry, patient was seen on 04/28/2019 at 1 PM Underwent colonoscopy today, noted to have AVM on ascending colon status post hemostatic clip placement Patient complains of abdominal bloating occasional cramp on the right lower quadrant, no further episode of GI bleed, no nausea no vomiting Started with clear liquid diet has been tolerating well, no fever or chills, no complaint of shortness of breath chest pain dizzy spell or palpitation Review of Systems Review of Systems: All systems reviewed & are unremarkable except as noted in HPI & below Physical Exam Constitutional: WD/WN, vitals as above Eyes: PERRL, conjunctivae normal, anicteric sclerae ENMT: external ear and nose normal, oropharynx normal Respiratory: normal respiratory effort; no respiratory distress Auscultation: + diminished lung sounds Cardiovascular: Rate/Rhythm: regular rate and regular rhythm Vessels: normal peripheral pulses Extremities: no edema Gastrointestinal (Abdomen): normal bowel sounds, soft, nontender, no hepatosplenomegaly Musculoskeletal: no cyanosis or clubbing, extremities motor strength 5/5 Skin: no rashes, warm and dry Neurologic: PERRL, EOMI, accommodation nl, no face palsy, no dysarthria Psychiatric: A+Ox3, euthymic affect Results & Data Vital Signs (Past 12 Hours) Vital Signs Temp Pulse Pulse Resp BP Pulse Ox 04/29/19 11:23 37.0 C 70 18 115/67 95 04/29/19 07:50 36.8 C 63 18 93/57 L 93 04/29/19 07:00 61 04/29/19 03:49 36.8 C 67 20 93/57 L 90
[2019-04-29 12:31] LABS: Hematocrit (blood only) 39.8 % (37-47); Hemoglobin 13.1 g/dL (12.0-16.0)
[2019-04-29] MEDS ORDERED: DICYCLOMINE HCL 20 MG TAB PO PRN ×2 (13:51→14:04)
--- NOTE | 2019-04-29 14:01 | Hospitalist Progress Note ---
Date of Service April 29, 2019 Assessment & Plan (1) BRBPR (bright red blood per rectum): Due to AVM at Rt colon -s/p colonoscopy 04/28/19 with placement of 7 hemostatic clips by GI no further episode of bleeding per rectum , H&H been stable diet advanced pt reports of feeling nauseous after meal no vomiting persisted rt lower quadrant pain after colonoscopy ordered Bentyl , will change to schedule pt will need repeat colonoscopy in 6 months should avoid NSAID's (2) Alcoholic cirrhosis: stable , no evidence of hepatic decompensation CT ABD/pelvis shows retroperitoneal varices which were present on prior exam, no other acute findings IV rocephin and Octerotide gtt dced -no sign of hepatic encephalopathy or liver decompensation -Continue Xifaxan and lacutolose (3) COPD (chronic obstructive pulmonary disease): -No signs of acute exacerbation -Continue home inhalers (4) Chronic diastolic CHF (congestive heart failure): -Currently appears euvolemic on exam diuretics resumed (5) HTN, goal below 140/90: -BP controlled, continue losartan (6) Anxiety: (7) Bipolar 1 disorder: -Patient on multiple psychiatric medications including hydroxyzine, Latuda, trazodone, Lamictal, trihexyphenidyl (8) Tobacco use disorder: -Patient counseled regarding tobacco cessation -Nicotine patch ordered (9) DVT prophylaxis: -SCD.brad pt is encouraged to ambulate DISPOSITION : plan to dc home tomorrow if remains medically stable Subjective no episode of GI bleed overnight no bowel movement, able to pass gas diet advanced to solid feels nauseous after eating still having pain /cramps at rt lower quadrant , no further episode of bright red blood per rectum vitals stable no fever or chills, no complain of SOB , has non productive cough , Review of Systems Review of Systems: All systems reviewed & are unremarkable except as noted in HPI & below Physical Exam Constitutional: WD/WN, vitals as above Eyes: PERRL, conjunctivae normal, anicteric sclerae ENMT: external ear and nose normal, oropharynx normal Respiratory: normal respiratory effort; no respiratory distress Auscultation: + diminished lung sounds Cardiovascular: Rate/Rhythm: regular rate and regular rhythm Vessels: normal peripheral pulses Extremities: no edema Gastrointestinal (Abdomen): Inspection/Auscultation: normal bowel sounds Percussion/Palpation: + abdomen tender (right lower quadrant ) and abdomen soft; no ascites Musculoskeletal: no cyanosis or clubbing, extremities motor strength 5/5 Skin: no rashes, warm and dry Neurologic: PERRL, EOMI, accommodation nl, no face palsy, no dysarthria Psychiatric: A+Ox3, euthymic affect Results & Data Vital Signs (Past 12 Hours) Vital Signs Temp Pulse Pulse Resp BP Pulse Ox 04/29/19 11:23 37.0 C 70 18 115/67 95 04/29/19 07:50 36.8 C 63 18 93/57 L 93 04/29/19 07:00 61 04/29/19 03:49 36.8 C 67 20 93/57 L 90
[2019-04-29] MEDS ORDERED: FLUTICASONE PROPIONATE NA SPR 16 GM BTL NAE PRN (14:03)
[2019-04-29] MEDS ORDERED: ALBUTEROL HFA 8 GM INHALER INH PRN (14:03)
[2019-04-29] MEDS ORDERED: ALBUTEROL 0.083% NEBU SOLN 3 ML VIAL INH PRN (14:03)
[2019-04-29] MEDS ORDERED: TRIAMCINOLONE ACET 0.5% CR 15 GM TUBE TOP PRN (14:03)
[2019-04-29] MEDS ORDERED: D5W AND NSS 1,000 ML IV SCH (15:45)
[2019-04-29] MEDS: LACTULOSE SYRUP 20 GM/30 ML UDC PO SCH ×2 (17:49→21:49)
[2019-04-29] MEDS: TRAZODONE HCL 50 MG TAB PO SCH (21:49)
[2019-04-29] MEDS: LURASIDONE HCL 40 MG TAB PO SCH (21:49)
[2019-04-29] MEDS: ROPINIROLE HCL 0.25 MG TABLET PO SCH (21:49)
[2019-04-30] MEDS: PANTOprazole 40 MG TAB PO SCH (07:59)
[2019-04-30] MEDS: LACTULOSE SYRUP 20 GM/30 ML UDC PO SCH ×2 (07:59→12:37)
[2019-04-30] MEDS: MULTIVITAMIN TAB PO SCH (07:59)
[2019-04-30] MEDS: FERROUS SULFATE 325 MG TAB PO SCH (07:59)
[2019-04-30] MEDS: MAGNESIUM OXIDE 400 MG TAB PO SCH (07:59)
[2019-04-30] MEDS: lamoTRIgine 25 MG TAB PO SCH (07:59)
[2019-04-30] MEDS: LOSARTAN POTASSIUM 25 MG TAB PO SCH (07:59)
[2019-04-30] MEDS: NICOTINE 21 MG/24 HR TDSY TD SCH (07:59)
[2019-04-30] MEDS: FOLIC ACID 1 MG TAB PO SCH (07:59)
[2019-04-30] MEDS: MONTELUKAST SODIUM 10 MG TABLET PO SCH (08:00)
[2019-04-30] MEDS: THIAMINE HCL 100 MG TAB PO SCH (08:00)
[2019-04-30] MEDS: TRIHEXYPHENIDYL HCL 5 MG TAB PO SCH (08:00)
[2019-04-30] MEDS: RIFAXIMIN 550 MG TABLET PO SCH (08:00)
[2019-04-30] MEDS: BUDESONIDE/FORMOTEROL FUMARATE 160/4.5 60 PUFFS/INHALER INH SCH (08:00)
[2019-04-30] MEDS: POTASSIUM CHLORIDE 10 MEQ TABCR PO SCH (08:00)
[2019-04-30] MEDS ORDERED: FUROSEMIDE 20 MG TAB PO SCH (09:00)
[2019-04-30] MEDS ORDERED: SPIRONOLACTONE 100 MG TAB PO SCH (09:00)
--- NOTE | 2019-04-30 15:28 | Discharge Summary ---
Date of Service April 30, 2019 Admission HPI Per Admitting Provider 53-year-old female who presents the ED for evaluation of bright bleeding per rectum. Patient reports her symptoms began around noon today. She reports a 5- 6 episodes of bright red blood per rectum. She reports there is no stool. She has some associated lower abdominal cramping. Denies nausea and vomiting. Takes lactulose for cirrhosis and typically has 3-4 bowel movements per day however reports no bowel movement for 2 days. No chest pain or shortness of breath. Denies lightheadedness, dizziness, diaphoresis, syncopal events. Has chills which are chronic for her. No fevers. Denies any urinary symptoms. In the ED, patient is hemodynamically stable and hemoglobin is found to be 16.0. CT ABD/pelvis shows retroperitoneal varices which were present on prior exam, no other acute findings. ED provider contacted GI who recommends admitting the patient overnight for colonoscopy tomorrow. Principal Diagnosis Lower GI BLEED /AVM ON RT SIDE COLON /CHRONIC ALCOHOLIC CIRRHOSIS Discharge Exam Constitutional WD/WN, vitals as above Eyes PERRL, conjunctivae normal, anicteric sclerae ENMT external ear and nose normal, oropharynx normal Respiratory normal respiratory effort; no respiratory distress Auscultation: + diminished lung sounds Cardiovascular Rate/Rhythm: regular rate and regular rhythm Vessels: normal peripheral pulses Extremities: no edema Gastrointestinal (Abdomen) normal bowel sounds, soft, nontender, no hepatosplenomegaly Inspection/Auscultation: normal bowel sounds Percussion/Palpation: + abdomen tender (right lower quadrant ) and abdomen soft; no ascites Musculoskeletal no cyanosis or clubbing, extremities motor strength 5/5 Skin no rashes, warm and dry Neurologic PERRL, EOMI, accommodation nl, no face palsy, no dysarthria Psychiatric A+Ox3, euthymic affect Discharge Data Allergies Allergy/AdvReac Type Severity Reaction Status Date / Time strawberry Allergy Severe HIVES Verified 04/27/19 15:27 bee venom protein (honey bee) Allergy Unknown HIVES AND Verified 04/27/19 15:27 SWELLING pollen extracts Allergy Unknown UNKNOWN Verified 04/27/19 15:27 No Known Drug Allergies Allergy Verified 04/27/19 15:27 [place] Tar Allergy Mild Unknown Uncoded 04/27/19 15:27 Consultations 04/27/19 18:29 ED Decision to Admit Stat 04/27/19 19:11 Consult Gastroenterology Routine Procedures Performed Operation Date: 04/28/19 09:00 Actual Procedures p Colonoscopy(Not Applicable) - Jewel Nation MD s Esophagogastroduodenoscopy(Not Applicable) - Jewel Nation MD Ordered Studies 04/27/19 15:10 CT abd pelvis IV con only Stat Hospital Course (1) BRBPR (bright red blood per rectum): Due to AVM at Rt colon -s/p colonoscopy 04/28/19 with placement of 7 hemostatic clips by GI no further episode of bleeding per rectum , H&H been stable diet advanced -tolerating well stable to be discharged home pt will need repeat colonoscopy in 6 months should avoid NSAID's (2) Alcoholic cirrhosis: stable , no evidence of hepatic decompensation CT ABD/pelvis shows retroperitoneal varices which were present on prior exam, no other acute findings IV rocephin and Octerotide gtt dced -no sign of hepatic encephalopathy or liver decompensation -Continue Xifaxan and lacutolose (3) COPD (chronic obstructive pulmonary disease): -No signs of acute exacerbation -Continue home inhalers (4) Chronic diastolic CHF (congestive heart failure): -Currently appears euvolemic on exam diuretics resumed (5) HTN, goal below 140/90: -BP controlled, continue losartan (6) Anxiety: (7) Bipolar 1 disorder: -Patient on multiple psychiatric medications including hydroxyzine, Latuda, trazodone, Lamictal, trihexyphenidyl (8) Tobacco use disorder: -Patient counseled regarding tobacco cessation -Nicotine patch ordered (9) DVT prophylaxis: -SCD.brad pt is encouraged to ambulate DISPOSITION : plan to dc home tomorrow if remains medically stable Total Time Total Time Spent Total Time Spent (In Minutes): 35 mis Total Time Includes: Examination of the Patient, Discharge Planning and Medication Reconciliation Discharge Plan Discharge Items Patient Disposition: Home - Self-Care Reason For Visit: GI BLEED Discharge Diagnosis: GI bleed, multiple bleeding area atrial venous malformation noted on right side of colon, chronic liver disease Condition on Discharge: Good Activity: Resume your previous activity Non-emergency contact: Primary Care Provider Call non-emergency contact if: you have any medication questions Follow-up/Referrals: Rangel Crane DO [Primary Care Provider] - 04/06/20 11:05 am Jewel Nation MD [Hospitalist] - (office follow up in 4-6 weeks ) Diet: Low Sodium (2gm) Addtl Attending Provider Instructions: Do not take aspirin, Advil, Aleve, Motrin, naproxen, avoid NSAIDs which can cause you to have GI bleed repeat colonoscopy in 6 months Gastroenterology follow-up in 4-6 weeks, office will call to schedule Pending Studies at Discharge: No Stand-Alone Forms: My [facility] [employer], Smoking Cessation Medications and DC Order Prescriptions: Continued Symbicort 160-4.5 mcg/actuation HFA aerosol inhaler 2 puffs INH BID RF: 0 albuterol sulfate [Ventolin HFA] 90 mcg/actuation HFA aerosol inhaler 2 puffs INH Q6H PRN (Reason: Shortness Of Breath) RF: 0 Xifaxan 550 mg tablet 550 mg PO BID RF: 0 (DME) OneTouch Ultra Blue Test Strip strip See Dose Instructions .ROUTE .MEDSUPPLY Qty: 10 RF: 0 (DME) lancets [OneTouch Delica Lancets] 33 gauge misc See Dose Instructions .ROUTE .MEDSUPPLY Qty: 100 RF: 0 (DME) OneTouch Verio strip See Dose Instructions .ROUTE .MEDSUPPLY Qty: 100 RF: 11 albuterol sulfate 2.5 mg /3 mL (0.083 %) solution for nebulization 2.5 mg INH QID PRN (Reason: Shortness Of Breath) RF: 0 lactulose 10 gram/15 mL solution 60 ml PO QID RF: 0 Mucinex DM 30-600 mg tablet extended release 12 hr 1 tab PO Q12H PRN (Reason: Congestion) RF: 0 ondansetron HCl 4 mg tablet 4 mg PO TID PRN (Reason: Acid Reflux) RF: 0 trazodone 150 mg tablet 150 mg PO HS RF: 0 trihexyphenidyl 5 mg tablet 2.5 mg PO DAILY RF: 0 triamcinolone acetonide 0.5 % cream 1 appln TOP BID PRN (Reason: Rash) RF: 0 lamotrigine 25 mg tablet 75 mg PO BID RF: 0 folic acid 1 mg tablet 1 mg PO QAM RF: 0 Latuda 40 mg tablet 40 mg PO QPM RF: 0 hydroxyzine HCl 25 mg tablet 25 mg PO BID PRN (Reason: anxiety) RF: 0 furosemide [Lasix] 40 mg tablet 60 mg PO DAILY RF: 0 ropinirole [Requip] 0.25 mg tablet 0.25 mg PO HS RF: 0 pantoprazole [Protonix] 40 mg tablet,delayed release (DR/EC) 40 mg PO BID RF: 0 fluticasone propionate [Flonase Allergy Relief] 50 mcg/actuation spray,suspension 2 spray Intranasal DAILY PRN (Reason: Allergy Symptoms) RF: 0 ferrous sulfate 325 mg (65 mg iron) tablet,delayed release (DR/EC) 325 mg PO BID RF: 0 losartan [Cozaar] 25 mg tablet 25 mg PO DAILY RF: 0 magnesium oxide 400 mg magnesium tablet 400 mg PO BID RF: 0 montelukast [Singulair] 10 mg tablet 10 mg PO DAILY RF: 0 multivitamin tablet 1 tab PO DAILY RF: 0 potassium chloride [Klor-Con 10] 10 mEq tablet extended release 10 meq PO DAILY RF: 0 thiamine HCl (vitamin B1) [Vitamin B-1] 100 mg tablet 100 mg PO DAILY RF: 0 tramadol [Ultram] 50 mg tablet 50 mg PO BID PRN (Reason: Pain) RF: 0 spironolactone [Aldactone] 100 mg tablet 150 mg PO QAM RF: 0 Changed dicyclomine 20 mg tablet 20 mg PO TID PRN (Reason: Abdominal Pain) Qty: 0 RF: 0 Discharge Orders: Discharge Order (Routine); Ordered 04/30/19 Ordered By: Carissa Azar Admission Data Admit Date/Time: 04/29/19 14:02 Attending Provider: Carissa Azar Admit Provider: Ronald Ariza Primary Care Provider: Rangel Crane Other Providers: Ronald Ariza ; Jewel Nation Other Interventions: Discharge Summary Assessment (RN) Last Done: 04/30/19 15:38 DC Date/Time DO NOT enter until pt leaves facility: 04/30/19 16:23
== END 2019-04-30 16:23 | disposition home or self-care (01) ==
LOC: ED 14:17 → 2W 14:17 → SUATTDRO 17:46 → 2W 18:27

== ENCOUNTER 2019-11-13 10:22 | Observation (INO) ==
--- NOTE | 2019-11-13 11:03 | Emergency Department Note ---
Impression & Plan GI bleeding, Abdominal pain, Encounter for smoking cessation counseling ED Provider Note NAME: MAIKOL PETERSON AGE: 54 SEX: F : 1965 ARRIVES VIA: Walk-In INFORMANT: Patient, ED PROVIDER(S): Sylvain Molina MD Chief Complaint: Rectal bleeding HPI: Patient states that she notices some some symptoms beginning yesterday with associated rectal bleeding. The patient states that it is primarily dark in nature. The patient does have a prior history of a polypectomy back in March. The patient believes it was benign as she had no additional treatment planned. The patient states she does have a planned pending colonoscopy coming up in the future. The patient denies any blood thinners or trauma. The patient denies any history of IBD medication changes or dietary changes. The patient states that the bleeding has been intermittent in nature. Patient states that she has noticed it on the stool and in the bowl but sometimes she has had normal stool in between yesterday and today. Patient denies symptoms COVID. The patient does have some chronic shortness of breath known COPD and the patient is a smoker. Has any vomiting, hematuria dysuria. ROS: See HPI for pertinent positives and negatives. A total of 10 systems were reviewed and otherwise negative. Past medical history: See below Surgical history: See below Social history: See below Physical Exam: GENERAL: Wearing a mask. NAD, non-toxic. EYE EXAM: Normal conjunctiva. PERRL, no anisocoria and EOM's grossly intact w/o pain. NECK: Supple, no nuchal rigidity, no adenopathy, non-tender. No signs of meningismus. LUNGS: Clear to auscultation. Normal chest wall mechanics. HEART: NSR, no MRG. ABDOMEN: Abdomen soft, mild pain in the lower abdomen suprapubic and right lower quadrant, normo-active bowel sounds, no masses, no rebound or guarding. BACK: No CVA TTP. SKIN: No rashes and no bruising. UPPER EXTREMITIES: Upper extremities are grossly normal. LOWER EXTREMITIES: Grossly normal, no edema. NEURO EXAM: A&O x3, cranial nerves II-XII grossly intact, normal speech, moves all 4 extremities on command w/o issue. Differential diagnoses: Diverticulosis, AVM, coagulopathy, colitis, inflammatory bowel disease, malignancy, Rowan-Olvera tear, esophagitis, peptic ulcer disease, variceal bleed, gastritis, epistaxis, fissure, hemorrhoids, as well as other pathologies. Course: Patient was seen and evaluated the bedside. Full history physical exam was performed. EKG: Indication: Abdominal pain Normal sinus rhythm, rate of 64, normal intervals, normal axis, no ST changes, T wave flattening in aVL. No significant change from September 06, 2018. Imaging Studies: Radiology results as stated below per my review in the radiologist's interpretation: CT abd pelvis IV con only CLINICAL HISTORY: Right lower quadrant pain with gastrointestinal bleeding COMPARISON STUDY: 04/27/2019 TECHNIQUE: Patient was scanned in a dynamic helical fashion during intravenous administration of 95 cc of Optiray 320. A dose lowering technique was utilized adhering to the principles of ALARA. CT DOSE: 1015.26 mGycm FINDINGS: Lower chest: There are basilar atelectatic changes Liver: The contrast-enhanced liver is normal in size, contour, and attenuation. There is no intrahepatic biliary ductal dilatation. The hepatic veins and portal veins are patent. Gallbladder: Surgically absent Spleen: Enlarged measuring 14 cm. Pancreas: Unremarkable. Adrenal glands: Unremarkable. Kidneys: There is symmetric renal cortical enhancement. The kidneys are normal in size without hydronephrosis. Bowel: There are no transition zones to indicate bowel obstruction. There is no evidence of acute diverticulitis. The appendix appears normal. Peritoneum: There is no free air. There is trace fluid in the pelvis likely physiologic Vasculature: There is no evidence of abdominal aortic aneurysm. There are prominent retroperitoneal varices. There are varices in the region of the gastrohepatic ligament. Adenopathy: None. Pelvic viscera: There is a suspected uterine fibroid. No bladder abnormalities are visualized Skeletal structures: Postsurgical changes are present within the cervical spine IMPRESSION: 1. No acute intra-abdominal or pelvic findings 2. No evidence of bowel obstruction. No evidence of free air 3. Normal appendix. No evidence of acute diverticulitis 4. Splenomegaly, and retroperitoneal and gastrohepatic ligament region varices ACT 112: Negative or not required by law. Electronically signed by: Jesús Esquivel M.D. 11/13/2019 12:46 PM Dictated: 11/13/19 1240 Transcribed: 11/13/19 1240 Cardiac monitoring: An order was placed for continuous cardiac monitoring. The monitor shows a rate of 73 with sinus rhythm. MDM: Patient was seen due to concern for GI bleeding and associated lower abdominal pain. Patient did have blood work completed along with a CT of the abdomen pelvis. An IV fluids pain and and nausea medication. The patient has a normal white count H&H and platelet count. The patient does have mild changes in her coagulation studies which may be consistent with her history of alcoholic cirrhosis. Patient does have a T bili 1.2. This appears essentially at baseline. The patient was ordered additional pain medication. I did speak with the on-call GI service given the fact that the patient has had prior AVMs does have varices as well as a history of alcoholic cirrhosis. I did speak with KIRA Sanchez who stated that the patient could be admitted and they consider scoping the patient tomorrow as the patient does have a prior history of AVMs. I did speak with the on-call hospitalist. Patient was admitted to the [facility] service under Dr. Blanco. Patient was counseled on smoking cessation and advised to consider stopping smoking. I counseled patient on smoking cessation for 3 minutes. Treatment options discussed and resources provided. Patient was receptive. Past Med/Surg History Medical History Alcoholic cirrhosis (Chronic) Anemia, chronic disease (Chronic) Anxiety (Chronic) Asthma (Chronic) Bipolar 1 disorder (Chronic) Chronic diastolic CHF (congestive heart failure) COPD (chronic obstructive pulmonary disease) H/O alcohol abuse (Chronic) HTN, goal below 140/90 (Chronic) Hx of migraines (Chronic) MELVI (obstructive sleep apnea) Sleep apnea (Chronic) Tobacco use disorder (Chronic) Surgical History History of spinal fusion History of total right knee replacement (Chronic) S/P cholecystectomy (Chronic) S/P tubal ligation (Chronic) Family History Sister Diabetes Social History (Updated 11/13/19 @ 16:15 by Veronica Jane PA-C) Preferred Language: Macanese Communication Ability: Effective Nurse Assessor Required: No Beliefs That Will Affect Care: None marital status: Current Living Situation: Alone Other Information That Helps Us Care for You: No Feels Safe at Home: Yes Safety Concerns: Feels Safe At This Time Smoking Status: Current every day smoker Tobacco Type: cigarettes ; Cigarettes Per Day: 10 ; Do You Dip or Chew Tobacco: No ; Second Hand Exposure: No ; Tobacco Cessation Education Requested by Patient: No Hx Alcohol Use: Yes (Quit 2017) Hx Substance Use: No Allergies Allergies Allergy/AdvReac Type Severity Reaction Status Date / Time strawberry Allergy Severe HIVES Verified 11/13/19 11:17 bee venom protein (honey bee) Allergy Unknown HIVES AND Verified 11/13/19 11:17 SWELLING pollen extracts Allergy Unknown UNKNOWN Verified 11/13/19 11:17 No Known Drug Allergies Allergy Verified 11/13/19 11:17 Ellis Tar Allergy Mild Unknown Uncoded 11/13/19 11:17 Home Meds Home Medications Medication Instructions Recorded Confirmed fluticasone propionate [Flonase 2 spray INTRANASAL DAILY PRN 02/22/18 11/13/19 Allergy Relief] furosemide [Lasix] 60 mg PO DAILY 02/22/18 11/13/19 pantoprazole [Protonix] 40 mg PO BID 02/22/18 11/13/19 ropinirole [Requip] 0.25 mg PO HS 02/22/18 11/13/19 albuterol sulfate 90 mcg/actuation 2 puffs INH Q6H PRN 11/28/18 11/13/19 aerosol inhaler budesonide-formoterol HFA 160 2 puffs INH BID 11/28/18 11/13/19 mcg-4.5 mcg/actuation aerosol inhaler ferrous sulfate 325 mg (65 mg 325 mg PO BID 11/28/18 11/13/19 iron) tablet,delayed release folic acid 1 mg tablet 1 mg PO QAM tab 11/28/18 11/13/19 losartan 25 mg tablet 25 mg PO DAILY tab 11/28/18 11/13/19 magnesium oxide 400 mg PO BID 11/28/18 11/13/19 montelukast 10 mg tablet 10 mg PO DAILY tab 11/28/18 11/13/19 multivitamin 1 tab PO DAILY tab 11/28/18 11/13/19 potassium chloride 10 mEq 10 meq PO DAILY tab 11/28/18 11/13/19 tablet,extended release rifaximin 550 mg tablet 550 mg PO BID 11/28/18 11/13/19 thiamine HCl (vitamin B1) 100 mg 100 mg PO DAILY tab 11/28/18 11/13/19 tablet albuterol sulfate 2.5 mg INH QID PRN 12/13/18 11/13/19 dextromethorphan-guaifenesin 30 1 tab PO Q12H PRN 12/13/18 11/13/19 mg-600 mg tablet extended [id number] hr lactulose 10 gram/15 mL oral 60 ml PO QID ml 12/13/18 11/13/19 solution ondansetron HCl 4 mg tablet 4 mg PO TID PRN 12/13/18 11/13/19 tramadol 50 mg tablet 50 mg PO BID PRN tab 12/13/18 11/13/19 trazodone 150 mg tablet 150 mg PO HS 12/13/18 11/13/19 trihexyphenidyl 5 mg tablet 2.5 mg PO DAILY 12/13/18 11/13/19 spironolactone 100 mg tablet 150 mg PO QAM tab 01/25/19 11/13/19 triamcinolone acetonide 0.5 % 1 appln TOP BID PRN 01/25/19 11/13/19 topical cream hydroxyzine HCl 25 mg PO BID PRN 04/27/19 11/13/19 lamotrigine 150 mg PO HS 11/13/19 11/13/19 sertraline 75 mg PO QAM 11/13/19 11/13/19 Previous Rx's Medication Instructions Recorded dicyclomine 20 mg PO TID PRN #0 tab 04/29/19 Results & Data (ED) Vital Signs Vital Signs - 24 hr 11/13/19 10:44 11/13/19 12:11 11/13/19 12:13 Temperature 36.5 C Temperature Source Oral Pulse Rate 73 61 61 Pulse Rate from SpO2 Sensor Pulse Rhythm Regular Pulse Strength Normal Respiratory Rate 18 18 16 Respiratory Effort / Characteristics Non-Labored Spontaneous Respiratory Depth Normal Respiratory Pattern Regular Blood Pressure 130/70 127/66 Blood Pressure Mean 90 85 Pulse Oximetry 91 95 Oxygen Delivery Method Room Air Room Air Sepsis Recent Fever Within 48 Hours No Sepsis New/Unexplained Change in Mental Status No Sepsis Action Taken by Nursing No Action Required 11/13/19 13:31 11/13/19 14:01 Temperature Temperature Source Pulse Rate 61 66 Pulse Rate from SpO2 Sensor 61 66 Pulse Rhythm Pulse Strength Respiratory Rate 14 21 Respiratory Effort / Characteristics Respiratory Depth Respiratory Pattern Blood Pressure 213/129 H Blood Pressure Mean 137 Pulse Oximetry 94 92 Oxygen Delivery Method Sepsis Recent Fever Within 48 Hours Sepsis New/Unexplained Change in Mental Status Sepsis Action Taken by [facility]ent[facility] Medications Current Medication List: was personally reviewed by me Laboratory Data Attestation: I reviewed the patient's lab results. Result diagrams: 11/13/19 11:25 11/13/19 11:25 Lab Results 11/13/19 11/13/19 11/13/19 Range/Units 11:25 11:25 11:25 WBC 6.94 (4.8-10.8) K/uL RBC 4.84 (4.2-5.4) M/uL Hgb 15.7 (12.0-16.0) g/dL Hct 44.6 (37-47) % MCV 92.1 (80-100) fL MCH 32.4 (25-34) pg MCHC 35.2 (32-36) g/dL RDW Std Deviation 47.9 H (36.4-46.3) fL RDW Coeff of Gregg 14.2 (11.5-14.5) % Plt Count 136 (130-400) K/uL MPV 9.6 (7.4-10.4) fL Immature Gran % (Auto) 0.0 % Neut % (Auto) 62.7 % Lymph % (Auto) 28.2 % [place] % (Auto) 6.5 % Eos % (Auto) 2.0 % Baso % (Auto) 0.6 % Neut # (Auto) 4.35 (1.4-6.5) K/uL Lymph # (Auto) 1.96 (1.2-3.4) K/uL [place] # (Auto) 0.45 (0.11-0.59) K/uL Eos # (Auto) 0.14 (0-0.5) K/uL Baso # (Auto) 0.04 (0-0.2) K/uL Immature Gran # (Auto) 0.00 (0.00-0.02) K/uL PT 12.4 H (9.0-12.0) Seconds INR 1.2 H (0.9-1.1) APTT 31.2 H (21.0-31.0) Seconds PTT Ratio 1.1 Sodium 139 (136-145) mmol/L Potassium 3.8 (3.5-5.1) mmol/L Chloride 108 H (98-107) mmol/L Carbon Dioxide 26 (21-32) mmol/L Anion Gap 5.0 (3-11) BUN 8 (7-18) mg/dl Creatinine 0.87 (0.6-1.2) mg/dl Est Cr Clr Drug Dosing 87.6 ml/min Est GFR ( Amer) 87.5 Est GFR (Non-Af Amer) 75.5 BUN/Creatinine Ratio 9.6 L (10-20) Glucose 82 (70-99) mg/dl Calcium 9.5 (8.5-10.1) mg/dl Total Bilirubin 1.2 H (0.2-1) mg/dl AST 29 (15-37) U/L ALT 25 (12-78) U/L Alkaline Phosphatase 112 (45-117) U/L Total Protein 8.4 H (6.4-8.2) gm/dl Albumin 3.7 (3.4-5.0) gm/dl Globulin 4.7 H (2.5-4.0) gm/dl Albumin/Globulin Ratio 0.8 L (0.9-2) Blood Type Antibody Screen Crossmatch 11/13/19 Range/Units 11:37 WBC (4.8-10.8) K/uL RBC (4.2-5.4) M/uL Hgb (12.0-16.0) g/dL Hct (37-47) % MCV (80-100) fL MCH (25-34) pg MCHC (32-36) g/dL RDW Std Deviation (36.4-46.3) fL RDW Coeff of Gregg (11.5-14.5) % Plt Count (130-400) K/uL MPV (7.4-10.4) fL Immature Gran % (Auto) % Neut % (Auto) % Lymph % (Auto) % [place] % (Auto) % Eos % (Auto) % Baso % (Auto) % Neut # (Auto) (1.4-6.5) K/uL Lymph # (Auto) (1.2-3.4) K/uL [place] # (Auto) (0.11-0.59) K/uL Eos # (Auto) (0-0.5) K/uL Baso # (Auto) (0-0.2) K/uL Immature Gran # (Auto) (0.00-0.02) K/uL PT (9.0-12.0) Seconds INR (0.9-1.1) APTT (21.0-31.0) Seconds PTT Ratio Sodium (136-145) mmol/L Potassium (3.5-5.1) mmol/L Chloride (98-107) mmol/L Carbon Dioxide (21-32) mmol/L Anion Gap (3-11) BUN (7-18) mg/dl Creatinine (0.6-1.2) mg/dl Est Cr Clr Drug Dosing ml/min Est GFR ( Amer) Est GFR (Non-Af Amer) BUN/Creatinine Ratio (10-20) Glucose (70-99) mg/dl Calcium (8.5-10.1) mg/dl Total Bilirubin (0.2-1) mg/dl AST (15-37) U/L ALT (12-78) U/L Alkaline Phosphatase (45-117) U/L Total Protein (6.4-8.2) gm/dl Albumin (3.4-5.0) gm/dl Globulin (2.5-4.0) gm/dl Albumin/Globulin Ratio (0.9-2) Blood Type O Positive Antibody Screen NEGATIVE Crossmatch See Detail Administered Medications Sodium Chloride (Nss 1000ml) 1,000 mls @ 80 mls/hr IV .[id number] [facility] Stop: 11/14/19 16:50 Last Admin: 11/13/19 16:48 Dose: 80 mls/hr Documented by: [id number] Morphine Sulfate (Morphine Sulfate) 2 mg IV Q4H PRN PRN Reason: Pain Stop: 11/15/19 15:50 Last Admin: 11/13/19 16:51 Dose: 2 mg Documented by: [id number] Nicotine (Nicoderm Cq) 14 mg TD QAM [facility] Stop: 12/13/19 15:59 Last Admin: 11/13/19 16:48 Dose: 14 mg Documented by: [id number] Discontinued Medications Sodium Chloride (Nss 1000ml) 500 mls @ 999 mls/hr IV .Q31M ONE Stop: 11/13/19 12:00 Last Infusion: 11/13/19 13:15 Dose: 0 mls/hr Documented by: [id number] Admin: 11/13/19 12:11 Dose: 999 mls/hr Documented by: [id number] Ioversol (Optiray 320 100ml) 95 ml IV ONCE PRN PRN Reason: Interaction Checking Stop: 11/17/19 12:32 Last Admin: 11/13/19 12:35 Dose: 95 ml Documented by: [id number] Morphine Sulfate (Morphine Sulfate) 4 mg IV NOW STA Stop: 11/13/19 11:31 Last Admin: 11/13/19 12:10 Dose: 4 mg Documented by: [id number] Morphine Sulfate (Morphine Sulfate) 4 mg IV NOW STA Stop: 11/13/19 14:22 Last Admin: 11/13/19 16:51 Dose: Not Given Documented by: [id number] Ondansetron HCl (Zofran) 4 mg IV NOW STA Stop: 11/13/19 11:31 Last Admin: 11/13/19 12:11 Dose: 4 mg Documented by: [id number] Discharge Plan Visit Data *Final* Discharge Date/Time: 11/13/19 15:17 Chief Complaint: GI Bleed Stated Complaint: GI BLEED ED Provider: Sylvain Molina Discharge Problem: GI bleeding, Abdominal pain, Encounter for smoking cessation counseling Patient Disposition: Home - Self-Care Condition: Good Discharge Instructions Interventions: ED Discharge Assessment Last Done: 11/13/19 15:17 Discharge Problem: GI bleeding Qualifiers: GI bleed type/associated pathology: gastritis Gastritis type: unspecified gastritis Qualified Code(s): K29.71 - Gastritis, unspecified, with bleeding Abdominal pain Qualifiers: Abdominal location: lower abdomen, unspecified Qualified Code(s): R10.30 - Lower abdominal pain, unspecified
[2019-11-13] MEDS ORDERED: ONDANSETRON INJ 2 MG/ML 2 ML VIAL IV STA (11:30)
[2019-11-13] MEDS ORDERED: MoRPHine SULFATE 4 MG/ML 1 ML CARP\\VIAL IV STA ×2 (11:30→14:21)
[2019-11-13] MEDS ORDERED: SODIUM CHLORIDE 0.9% 1000ML 500 ML IV ONE (11:30)
[2019-11-13 11:47] LABS: INR 1.2 (0.9-1.1); Partial Thromboplastin Ratio 1.1; Partial Thromboplastin Time 31.2 Seconds (21.0-31.0); Prothrombin Time 12.4 Seconds (9.0-12.0)
[2019-11-13 11:52] LABS: Albumin Level 3.7 gm/dl (3.4-5.0); BUN Creatinine Ratio 9.6 (10-20); Calcium 9.5 mg/dl (8.5-10.1); Creatinine Clr Calc Pharmacy 87.6 ml/min; Est GFR (African American) 87.5; Est GFR (Non-African American) 75.5; Potassium 3.8 mmol/L (3.5-5.1)
[2019-11-13 11:55] LABS: Albumin Globulin Ratio 0.8 (0.9-2); Bilirubin,Total 1.2 mg/dl (0.2-1); Globulin 4.7 gm/dl (2.5-4.0); Total Protein 8.4 gm/dl (6.4-8.2)
[2019-11-13 11:58] LABS: Basophils # (auto) 0.04 K/uL (0-0.2); Basophils % (auto) 0.6 %; Eosinophils # (auto) 0.14 K/uL (0-0.5); Hematocrit (blood only) 44.6 % (37-47); Hemoglobin 15.7 g/dL (12.0-16.0); Lymphocytes # (auto) 1.96 K/uL (1.2-3.4); Lymphocytes % (auto) 28.2 %; Mean Corpuscular Hemoglobin 32.4 pg (25-34); Mean Corpuscular Hgb Conc 35.2 g/dL (32-36); Mean Corpuscular Volume 92.1 fL (80-100); Mean Platelet Volume 9.6 fL (7.4-10.4); Monocytes # (auto) 0.45 K/uL (0.11-0.59); Monocytes % (auto) 6.5 %; Neutrophils # (auto) 4.35 K/uL (1.4-6.5); Neutrophils % (auto) 62.7 %; Platelet Count 136 K/uL (130-400); RDW Coefficient of Variation 14.2 % (11.5-14.5); RDW Standard Deviation 47.9 fL (36.4-46.3); Red Blood Count 4.84 M/uL (4.2-5.4); White Blood Count 6.94 K/uL (4.8-10.8)
[2019-11-13] MEDS ORDERED: IOVERSOL 100ml IV PRN (12:33)
--- NOTE | 2019-11-13 12:47 | CT Scan Report ---
CT abd pelvis IV con only CLINICAL HISTORY: Right lower quadrant pain with gastrointestinal bleeding COMPARISON STUDY: 04/27/2019 TECHNIQUE: Patient was scanned in a dynamic helical fashion during intravenous administration of 95 c c of Optiray 320. A dose lowering technique was utilized adhering to the principles of ALARA. CT DOSE: 1015.26 mGycm FINDINGS: Lower chest: There are basilar atelectatic changes Liver: The contrast-enhanced liver is normal in size, contour, and attenuation. There is no intrahepa tic biliary ductal dilatation. The hepatic veins and portal veins are patent. Gallbladder: Surgically absent Spleen: Enlarged measuring 14 cm. Pancreas: Unremarkable. Adrenal glands: Unremarkable. Kidneys: There is symmetric renal cortical enhancement. The kidneys are normal in size without hydron ephrosis. Bowel: There are no transition zones to indicate bowel obstruction. There is no evidence of acute div erticulitis. The appendix appears normal. Peritoneum: There is no free air. There is trace fluid in the pelvis likely physiologic Vasculature: There is no evidence of abdominal aortic aneurysm. There are prominent retroperitoneal v arices. There are varices in the region of the gastrohepatic ligament. Adenopathy: None. Pelvic viscera: There is a suspected uterine fibroid. No bladder abnormalities are visualized Skeletal structures: Postsurgical changes are present within the cervical spine IMPRESSION: 1. No acute intra-abdominal or pelvic findings 2. No evidence of bowel obstruction. No evidence of free air 3. Normal appendix. No evidence of acute diverticulitis 4. Splenomegaly, and retroperitoneal and gastrohepatic ligament region varices ACT 112: Negative or not required by law. Electronically signed by: Jesús Esquivel M.D. 11/13/2019 12:46 PM
--- NOTE | 2019-11-13 13:26 | Communication Note ---
Date of Service: November 13, 2019 Received call from GI OP provider notifying inpatient GI team that Ms. Mcgowan was coming to the ED for rectal bleeding. No formal consultation placed. I did try to contact ED provider around 1:20 but call was disconnected x 2 - will await return call. Labs reviewed. Recent colonoscopy reviewed. Pt notes persistent episodes of BRBPR. Would recommend admission for observation, clear liquid diet and golytely to start at 5pm for endoscopic evaluation tomorrow. I saw the patient in the emergency room this morning. They are presently trying to determine if she should be admitted. If admitted would recommend a bowel preparation tonight as we could certainly provide colonoscopy for evaluation of her hematochezia tomorrow.
[2019-11-13] MEDS ORDERED: OCTREOTIDE ACETATE 50 MCG in SYRINGE 9.5 ML IV STA (15:21)
--- NOTE | 2019-11-13 15:33 | History & Physical Report ---
Date of Service November 13, 2019 Assessment & Plan (1) Hematochezia: Pt is 54 y/o F with PMH alcoholic cirrhosis, ascites, AVM s/p clipping in 03/2019, Kelly's esophagus, tobacco use presented to ER with c/o hematochezia started yesterday In ER afebrile, P: 73, R: 18, BP: 130/70, Pulse ox 91-95% on RA. No leukocytosis. H/H: 15/44, Plt: 136, INR: 1.2 (chronic) CT Abd/pelvis: 1. No acute intra-abdominal or pelvic findings 2. No evidence of bowel obstruction. No evidence of free air 3. Normal appendix. No evidence of acute diverticulitis 4. Splenomegaly, and retroperitoneal and gastrohepatic ligament region varices DDX: AVM bleed, diverticular bleed, hemorrhoids, mass -In ER given 1L NSS, zofran, morphine -Type and cross and hold -Gentle IVF -PPI, Octreotide, Rocephin -Clear fluids today, NPO midnight per GI -GI consult, spoke with KIRA Garibay who recommended GoLytely bowel prep with 4L tonight -Will hold lactulose as pt receiving Golytely bowel prep -CBC, CMP in am (2) HTN (hypertension): BP stable. There was a BP reading of 213/129 in ER however suspect that was incorrect as repeated BP upon my evaluation was 134/66 -Continue losartan (3) Chronic diastolic CHF (congestive heart failure): 12/2018 echo: EF: 55% -Appears euvolemic -Holding diuretics currently as above (4) COPD (chronic obstructive pulmonary disease): No signs of exacerbation -Continue home inhalers (5) Bipolar 1 disorder: (6) Anxiety: -Continue home meds (7) Tobacco use disorder: -Nicotine patch if needed DVT Prophylaxis -SCDs Follows with Dr Crane for routine care Pt was seen and care coordinated with Dr Balnco. See addendum History of Present Illness Chief Complaint: Bloody stool Primary Care Provider: Rangel Crane DO Pt is 54 y/o F with PMH alcoholic cirrhosis, ascites, AVM s/p clipping in 03/2019, Kelly's esophagus, tobacco use presented to ER with c/o hematochezia started yesterday. Pt states had approx 3 BM's a day. Initially was formed stool then loose and described as grossly red blood that colored toilet bowel water. Also c/o lower abdominal cramping that has been constant since yesterday. Pt states baseline lightheadedness with standing, thinks may be a bit worse today. C/O shortness of breath with exertion at baseline. Denies CP, cough or fever. Denies ETOH use since 3 years ago, diaphoresis, N/V, syncope, vision changes, neck pain, sore throat, choking, otalgia, rhinorrhea, paresthesias, weakness, extremity edema, rashes, urinary symptoms, epistaxis. Allergies Allergy/AdvReac Type Severity Reaction Status Date / Time strawberry Allergy Severe HIVES Verified 11/13/19 11:17 bee venom protein (honey bee) Allergy Unknown HIVES AND Verified 11/13/19 11:17 SWELLING pollen extracts Allergy Unknown UNKNOWN Verified 11/13/19 11:17 No Known Drug Allergies Allergy Verified 11/13/19 11:17 [place] Tar Allergy Mild Unknown Uncoded 11/13/19 11:17 Home Medications Home Medications Medication Instructions Recorded Confirmed Type fluticasone propionate [Flonase 2 spray INTRANASAL DAILY PRN 02/22/18 11/13/19 History Allergy Relief] furosemide [Lasix] 60 mg PO DAILY 02/22/18 11/13/19 History pantoprazole [Protonix] 40 mg PO BID 02/22/18 11/13/19 History ropinirole [Requip] 0.25 mg PO HS 02/22/18 11/13/19 History albuterol sulfate 90 mcg/actuation 2 puffs INH Q6H PRN 11/28/18 11/13/19 History aerosol inhaler budesonide-formoterol HFA 160 2 puffs INH BID 11/28/18 11/13/19 History mcg-4.5 mcg/actuation aerosol inhaler ferrous sulfate 325 mg (65 mg 325 mg PO BID 11/28/18 11/13/19 History iron) tablet,delayed release folic acid 1 mg tablet 1 mg PO QAM tab 11/28/18 11/13/19 History losartan 25 mg tablet 25 mg PO DAILY tab 11/28/18 11/13/19 History magnesium oxide 400 mg PO BID 11/28/18 11/13/19 History montelukast 10 mg tablet 10 mg PO DAILY tab 11/28/18 11/13/19 History multivitamin 1 tab PO DAILY tab 11/28/18 11/13/19 History potassium chloride 10 mEq 10 meq PO DAILY tab 11/28/18 11/13/19 History tablet,extended release rifaximin 550 mg tablet 550 mg PO BID 11/28/18 11/13/19 History thiamine HCl (vitamin B1) 100 mg 100 mg PO DAILY tab 11/28/18 11/13/19 History tablet albuterol sulfate 2.5 mg INH QID PRN 12/13/18 11/13/19 History dextromethorphan-guaifenesin 30 1 tab PO Q12H PRN 12/13/18 11/13/19 History mg-600 mg tablet extended [id number] hr lactulose 10 gram/15 mL oral 60 ml PO QID ml 12/13/18 11/13/19 History solution ondansetron HCl 4 mg tablet 4 mg PO TID PRN 12/13/18 11/13/19 History tramadol 50 mg tablet 50 mg PO BID PRN tab 12/13/18 11/13/19 History trazodone 150 mg tablet 150 mg PO HS 12/13/18 11/13/19 History trihexyphenidyl 5 mg tablet 2.5 mg PO DAILY 12/13/18 11/13/19 History spironolactone 100 mg tablet 150 mg PO QAM tab 01/25/19 11/13/19 History triamcinolone acetonide 0.5 % 1 appln TOP BID PRN 01/25/19 11/13/19 History topical cream hydroxyzine HCl 25 mg PO BID PRN 04/27/19 11/13/19 History dicyclomine 20 mg PO TID PRN #0 tab 04/29/19 11/13/19 Rx lamotrigine 150 mg PO HS 11/13/19 11/13/19 History sertraline 75 mg PO QAM 11/13/19 11/13/19 History Past Med/Surg History Medical History Alcoholic cirrhosis (Chronic) Anemia, chronic disease (Chronic) Anxiety (Chronic) Asthma (Chronic) Bipolar 1 disorder (Chronic) Chronic diastolic CHF (congestive heart failure) COPD (chronic obstructive pulmonary disease) H/O alcohol abuse (Chronic) HTN, goal below 140/90 (Chronic) Hx of migraines (Chronic) MELVI (obstructive sleep apnea) Sleep apnea (Chronic) Tobacco use disorder (Chronic) Surgical History History of spinal fusion History of total right knee replacement (Chronic) S/P cholecystectomy (Chronic) S/P tubal ligation (Chronic) Family History Sister Diabetes Social History (Updated 11/13/19 @ 16:15 by Veronica Jane PA-C) Preferred Language: Lao Communication Ability: Effective Textile Converter Required: No Beliefs That Will Affect Care: None marital status: Current Living Situation: Alone Other Information That Helps Us Care for You: No Feels Safe at Home: Yes Safety Concerns: Feels Safe At This Time Smoking Status: Current every day smoker Tobacco Type: cigarettes ; Cigarettes Per Day: 10 ; Do You Dip or Chew Tobacco: No ; Second Hand Exposure: No ; Tobacco Cessation Education Requested by Patient: No Hx Alcohol Use: Yes (Quit 2017) Hx Substance Use: No Review of Systems Review of Systems: All systems reviewed & are unremarkable except as noted in HPI & below Physical Exam Physical Exam: General: no distress, obese Head: normocephalic, atraumatic Eyes: PERRL, EOM's intact, conjunctiva non-injected, anicteric ENT: normal inspection external ears, nose, mucous membranes moist Neck: supple, trachea midline Lungs: clear, no respiratory distress, slight rales noted bilateral bases, no wheezing/rhonchi CV: RRR, systolic murmur, no pretibial edema Abd: normal BS, soft, +tenderness to palpation entire lower abdomen Ext: no cyanosis, no calf tenderness Neuro: A&O x 3, no focal deficits noted, normal affect Skin: warm, dry Results & Data Results & Data ([facility]) Vital Signs (Past 12 Hours) Vital Signs Temp Pulse Resp BP Pulse Ox 11/13/19 14:01 66 21 92 11/13/19 13:31 61 14 213/129 H 94 11/13/19 12:13 61 16 11/13/19 12:11 61 18 127/66 95 11/13/19 10:44 36.5 C 73 18 130/70 91 Laboratory Results Short CBC 11/13/19 Range/Units 11:25 WBC 6.94 (4.8-10.8) K/uL Hgb 15.7 (12.0-16.0) g/dL Hct 44.6 (37-47) % Plt Count 136 (130-400) K/uL BMP 11/13/19 11:25 Sodium 139 Potassium 3.8 Chloride 108 H Carbon Dioxide 26 BUN 8 Creatinine 0.87 Glucose 82 Calcium 9.5 Liver Function 11/13/19 Range/Units 11:25 Total Bilirubin 1.2 H (0.2-1) mg/dl AST 29 (15-37) U/L ALT 25 (12-78) U/L Alkaline Phosphatase 112 (45-117) U/L Albumin 3.7 (3.4-5.0) gm/dl Diagnostic Findings CT ABD/PELVIS: IMPRESSION: 1. No acute intra-abdominal or pelvic findings 2. No evidence of bowel obstruction. No evidence of free air 3. Normal appendix. No evidence of acute diverticulitis 4. Splenomegaly, and retroperitoneal and gastrohepatic ligament region varices Code Status & VTE Plan VTE Prophylaxis Plan VTE Prophylaxis will be ordered: Yes Supervising Physician Co-Signing Physician Notes Patient is a 54-year-old female with history of alcoholic cirrhosis, AVM, ascites, Kelly's esophagus and unremarkable presents with history of bright red blood per rectum since yesterday. She reports associated abdominal cramps since 2 days duration. Please review HPI for complete details of presentation. Hemoglobin is stable at 15.7. She denies any pain associated with rectal bleeding. CT abdomen showed splenomegaly, retroperitoneal and gastrohepatic ligament vein varices. She denies any use of NSAIDs, blood thinners. On exam patient is obese, normocephalic atraumatic, lungs are clear to auscultation, S1- S2, no murmur, no pedal edema abdomen-soft, generalized tenderness, no guarding or rigidity normal bowel sounds, grossly no focal neurologic deficits. Patient is admitted for management of acute GI bleeding likely lower GI bleeding. Agree with IV PPI, octreotide, Rocephin, IV fluids. Clear liquid diet for now, n.p.o. after midnight for EGD, colonoscopy tomorrow. Appreciate GI input. Monitor H&H and transfuse PRBCs as needed. I personally reviewed the record. Patient is interviewed and examined at bedside. Patient's care is coordinated with Veronica Jane PA-C. Please refer to the documentation above for details of patient's presentation and for discussion of other issues.
--- NOTE | 2019-11-13 15:35 | Gastrointestinal Consultation ---
Date of Consultation November 13, 2019 Assessment & Plan (1) GI bleedin54 year old female with history of liver disease presenting with hematochezia, stable vitals, HGB without BUN elevation. DDX discussed, likely lower GI source.Discussed with ED and hospitalist. Clear liquids. Plan for EGD/ Colon. Please start bowel prep around 1700 w/ 4L golytely. PPI, octreo, ABX. Trend HGB. Monitor stools. Transfuse PRN. Thank you for allowing us to participate in the care of this patient. Please call with any acute changes, questions or concerns. Please see addendum below with additional recommendation from my supervising physician. Supervising Physician Co-Signing Physician Notes I saw and evaluated the patient in the emergency room with ms. Hdez. He has a history of arteriovenous malformations and presents with melena and hematochezia. She denies having any emesis or hematemesis. Physical examination No obvious distress No abdominal tenderness Impression: Patient presenting with medication and dark stool possibly related to recurrent arteriovenous malformations. Given her history we can certainly proceed with a repeat upper endoscopy and colonoscopy for further evaluation. History of Present Illness Reason for Consultation: GIB Requesting Physician: Jesse Attending Physician: Jesse History of Present Illness Delayed entry. 54 year old female history of etoh cirrhosis, colonic avms s/p clips and APC in 2019 who presents with lightheadedness, dizziness, BRBPR. Pt notes that she started with painless rectal bleeding with BMs about 2 days ago. Then developed BRBPR in the absence of BM and grew concerned as she was lightheaded and dizzy. Due to her history she was instructed ED In the ED she reports ongoing bleeding. Vitals stable. HGB stable. No BUN elevation. Allergies Allergy/AdvReac Type Severity Reaction Status Date / Time strawberry Allergy Severe HIVES Verified 11/13/19 11:17 bee venom protein (honey bee) Allergy Unknown HIVES AND Verified 11/13/19 11:17 SWELLING pollen extracts Allergy Unknown UNKNOWN Verified 11/13/19 11:17 No Known Drug Allergies Allergy Verified 11/13/19 11:17 [place] Tar Allergy Mild Unknown Uncoded 11/13/19 11:17 Home Medications Home Medications Medication Instructions Recorded Confirmed Type fluticasone propionate [Flonase 2 spray INTRANASAL DAILY PRN 02/22/18 11/13/19 History Allergy Relief] furosemide [Lasix] 60 mg PO DAILY 02/22/18 11/13/19 History pantoprazole [Protonix] 40 mg PO BID 02/22/18 11/13/19 History ropinirole [Requip] 0.25 mg PO HS 02/22/18 11/13/19 History albuterol sulfate 90 mcg/actuation 2 puffs INH Q6H PRN 11/28/18 11/13/19 History aerosol inhaler budesonide-formoterol HFA 160 2 puffs INH BID 11/28/18 11/13/19 History mcg-4.5 mcg/actuation aerosol inhaler ferrous sulfate 325 mg (65 mg 325 mg PO BID 11/28/18 11/13/19 History iron) tablet,delayed release folic acid 1 mg tablet 1 mg PO QAM tab 11/28/18 11/13/19 History losartan 25 mg tablet 25 mg PO DAILY tab 11/28/18 11/13/19 History magnesium oxide 400 mg PO BID 11/28/18 11/13/19 History montelukast 10 mg tablet 10 mg PO DAILY tab 11/28/18 11/13/19 History multivitamin 1 tab PO DAILY tab 11/28/18 11/13/19 History potassium chloride 10 mEq 10 meq PO DAILY tab 11/28/18 11/13/19 History tablet,extended release rifaximin 550 mg tablet 550 mg PO BID 11/28/18 11/13/19 History thiamine HCl (vitamin B1) 100 mg 100 mg PO DAILY tab 11/28/18 11/13/19 History tablet albuterol sulfate 2.5 mg INH QID PRN 12/13/18 11/13/19 History dextromethorphan-guaifenesin 30 1 tab PO Q12H PRN 12/13/18 11/13/19 History mg-600 mg tablet extended [id number] hr lactulose 10 gram/15 mL oral 60 ml PO QID ml 12/13/18 11/13/19 History solution ondansetron HCl 4 mg tablet 4 mg PO TID PRN 12/13/18 11/13/19 History tramadol 50 mg tablet 50 mg PO BID PRN tab 12/13/18 11/13/19 History trazodone 150 mg tablet 150 mg PO HS 12/13/18 11/13/19 History trihexyphenidyl 5 mg tablet 2.5 mg PO DAILY 12/13/18 11/13/19 History spironolactone 100 mg tablet 150 mg PO QAM tab 01/25/19 11/13/19 History triamcinolone acetonide 0.5 % 1 appln TOP BID PRN 01/25/19 11/13/19 History topical cream hydroxyzine HCl 25 mg PO BID PRN 04/27/19 11/13/19 History dicyclomine 20 mg PO TID PRN #0 tab 04/29/19 11/13/19 Rx lamotrigine 150 mg PO HS 11/13/19 11/13/19 History sertraline 75 mg PO QAM 11/13/19 11/13/19 History Patient History Medical History Alcoholic cirrhosis (Chronic) Anemia, chronic disease (Chronic) Anxiety (Chronic) Asthma (Chronic) Bipolar 1 disorder (Chronic) Chronic diastolic CHF (congestive heart failure) COPD (chronic obstructive pulmonary disease) H/O alcohol abuse (Chronic) HTN, goal below 140/90 (Chronic) Hx of migraines (Chronic) MELVI (obstructive sleep apnea) Sleep apnea (Chronic) Tobacco use disorder (Chronic) Surgical History History of spinal fusion History of total right knee replacement (Chronic) S/P cholecystectomy (Chronic) S/P tubal ligation (Chronic) Family History Sister Diabetes Social History (Updated 11/13/19 @ 16:15 by Veronica Jane PA-C) Preferred Language: Citizen Of [place] Communication Ability: Effective English Professor Required: No Beliefs That Will Affect Care: None marital status: Current Living Situation: Alone Other Information That Helps Us Care for You: No Feels Safe at Home: Yes Safety Concerns: Feels Safe At This Time Smoking Status: Current every day smoker Tobacco Type: cigarettes ; Cigarettes Per Day: 10 ; Do You Dip or Chew Tobacco: No ; Second Hand Exposure: No ; Tobacco Cessation Education Requested by Patient: No Hx Alcohol Use: Yes (Quit 2017) Hx Substance Use: No Review of Systems Constitutional: No fever, chills, fatige, weakness Respiratory: Chronic SOB but no acute SOB or cough or sputum Cardiovascular: Additional Comments: Denies CP, SOB at rest. There is some edema. Gastrointestinal: + blood in stools Denies pain but urgent, BRBPR. No melena. No UGI Symptoms. No hematemesis or coffee ground emesis Physical Exam Constitutional: well developed and well nourished no acute distress Respiratory: normal respiratory effort Cardiovascular: Rate/Rhythm: regular rate and regular rhythm Gastrointestinal (Abdomen): normal bowel sounds, soft, nontender, no hepatosplenomegaly Results & Data ([facility]) Vital Signs (Past 12 Hours) Vital Signs Temp Pulse Resp BP Pulse Ox 11/13/19 14:01 66 21 92 11/13/19 13:31 61 14 213/129 H 94 11/13/19 12:13 61 16 11/13/19 12:11 61 18 127/66 95 11/13/19 10:44 36.5 C 73 18 130/70 91 Laboratory Results 11/13/19 11/13/19 11/13/19 Range/Units 11:37 11:25 11:25 WBC (4.8-10.8) K/uL RBC (4.2-5.4) M/uL Hgb (12.0-16.0) g/dL Hct (37-47) % MCV (80-100) fL MCH (25-34) pg MCHC (32-36) g/dL RDW Std Deviation (36.4-46.3) fL RDW Coeff of Gregg (11.5-14.5) % Plt Count (130-400) K/uL MPV (7.4-10.4) fL Immature Gran % (Auto) % Neut % (Auto) % Lymph % (Auto) % [place] % (Auto) % Eos % (Auto) % Baso % (Auto) % Neut # (Auto) (1.4-6.5) K/uL Lymph # (Auto) (1.2-3.4) K/uL [place] # (Auto) (0.11-0.59) K/uL Eos # (Auto) (0-0.5) K/uL Baso # (Auto) (0-0.2) K/uL Immature Gran # (Auto) (0.00-0.02) K/uL PT 12.4 H (9.0-12.0) Seconds INR 1.2 H (0.9-1.1) APTT 31.2 H (21.0-31.0) Seconds PTT Ratio 1.1 Sodium 139 (136-145) mmol/L Potassium 3.8 (3.5-5.1) mmol/L Chloride 108 H (98-107) mmol/L Carbon Dioxide 26 (21-32) mmol/L Anion Gap 5.0 (3-11) BUN 8 (7-18) mg/dl Creatinine 0.87 (0.6-1.2) mg/dl Est Cr Clr Drug Dosing 87.6 ml/min Est GFR ( Amer) 87.5 Est GFR (Non-Af Amer) 75.5 BUN/Creatinine Ratio 9.6 L (10-20) Glucose 82 (70-99) mg/dl Calcium 9.5 (8.5-10.1) mg/dl Total Bilirubin 1.2 H (0.2-1) mg/dl AST 29 (15-37) U/L ALT 25 (12-78) U/L Alkaline Phosphatase 112 (45-117) U/L Total Protein 8.4 H (6.4-8.2) gm/dl Albumin 3.7 (3.4-5.0) gm/dl Globulin 4.7 H (2.5-4.0) gm/dl Albumin/Globulin Ratio 0.8 L (0.9-2) Blood Type O Positive Antibody Screen NEGATIVE 11/13/19 Range/Units 11:25 WBC 6.94 (4.8-10.8) K/uL RBC 4.84 (4.2-5.4) M/uL Hgb 15.7 (12.0-16.0) g/dL Hct 44.6 (37-47) % MCV 92.1 (80-100) fL MCH 32.4 (25-34) pg MCHC 35.2 (32-36) g/dL RDW Std Deviation 47.9 H (36.4-46.3) fL RDW Coeff of Gregg 14.2 (11.5-14.5) % Plt Count 136 (130-400) K/uL MPV 9.6 (7.4-10.4) fL Immature Gran % (Auto) 0.0 % Neut % (Auto) 62.7 % Lymph % (Auto) 28.2 % Robeson % (Auto) 6.5 % Eos % (Auto) 2.0 % Baso % (Auto) 0.6 % Neut # (Auto) 4.35 (1.4-6.5) K/uL Lymph # (Auto) 1.96 (1.2-3.4) K/uL Robeson # (Auto) 0.45 (0.11-0.59) K/uL Eos # (Auto) 0.14 (0-0.5) K/uL Baso # (Auto) 0.04 (0-0.2) K/uL Immature Gran # (Auto) 0.00 (0.00-0.02) K/uL PT (9.0-12.0) Seconds INR (0.9-1.1) APTT (21.0-31.0) Seconds PTT Ratio Sodium (136-145) mmol/L Potassium (3.5-5.1) mmol/L Chloride (98-107) mmol/L Carbon Dioxide (21-32) mmol/L Anion Gap (3-11) BUN (7-18) mg/dl Creatinine (0.6-1.2) mg/dl Est Cr Clr Drug Dosing ml/min Est GFR ( Amer) Est GFR (Non-Af Amer) BUN/Creatinine Ratio (10-20) Glucose (70-99) mg/dl Calcium (8.5-10.1) mg/dl Total Bilirubin (0.2-1) mg/dl AST (15-37) U/L ALT (12-78) U/L Alkaline Phosphatase (45-117) U/L Total Protein (6.4-8.2) gm/dl Albumin (3.4-5.0) gm/dl Globulin (2.5-4.0) gm/dl Albumin/Globulin Ratio (0.9-2) Blood Type Antibody Screen (1) GI bleeding GI bleed type/associated pathology: gastritis Gastritis type: unspecified gastritis Qualified Code(s): K29.71 - Gastritis, unspecified, with bleeding
[2019-11-13] MEDS ORDERED: SODIUM CHLORIDE 0.9% 250 ML IV PRN (15:51)
[2019-11-13] MEDS ORDERED: cefTRIAXone SODIUM 1,000 MG in DEXTROSE 5% 50 ML IV SCH (15:51)
[2019-11-13] MEDS ORDERED: ONDANSETRON INJ 2 MG/ML 2 ML VIAL IV PRN (15:51)
[2019-11-13] MEDS ORDERED: ACETAMINOPHEN 325 MG TAB PO PRN (15:51)
[2019-11-13] MEDS ORDERED: ALBUTEROL 0.083% NEBU SOLN 3 ML VIAL INH PRN (15:51)
[2019-11-13] MEDS: SODIUM CHLORIDE 0.9% 1000ML 1,000 ML IV SCH (16:48)
[2019-11-13] MEDS: NICOTINE 14 MG/24 HR PATCH TD SCH (16:48)
[2019-11-13] MEDS: MoRPHine SULFATE 2 MG/ML CARP IV PRN ×2 (16:51→23:33)
[2019-11-13] MEDS ORDERED: LAVAGE SOLUTION 4000ML PO SCH (17:00)
[2019-11-13] MEDS: OCTREOTIDE ACETATE 500 MCG in 0.9 % SODIUM CHLORIDE 100 ML IV SCH (18:14)
[2019-11-13] MEDS: cefTRIAXone SODIUM 2,000 MG in DEXTROSE 5% 50 ML IV SCH (18:15)
[2019-11-13] MEDS: PANTOprazole 40 MG in SYRINGE 0 ML IV SCH ×2 (18:45→20:50)
--- NOTE | 2019-11-13 19:25 | Electrocardiogram Report ---
Test Reason : Blood Pressure : / mmHG Vent. Rate : 064 BPM Atrial Rate : 064 BPM P-R Int : 162 ms QRS Dur : 104 ms QT Int : 430 ms P-R-T Axes : 046 021 068 degrees QTc Int : 443 ms Normal sinus rhythm Normal ECG When compared with ECG of 06-SEP-2018 17:02, No significant change was found Confirmed by Luis M Martinez ([id number]) on 11/13/2019 7:24:58 PM Referred By: REFERRED SELF Confirmed By:Jose Martinez
[2019-11-13] MEDS: TRAZODONE HCL 50 MG TAB PO SCH (20:48)
[2019-11-13] MEDS: ROPINIROLE HCL 0.25 MG TABLET PO SCH (20:49)
[2019-11-13] MEDS: lamoTRIgine 100 MG TAB PO SCH (20:49)
[2019-11-13] MEDS: RIFAXIMIN 550 MG TABLET PO SCH (20:50)
[2019-11-13 21:53] LABS: Hematocrit (blood only) 41.8 % (37-47); Hemoglobin 14.2 g/dL (12.0-16.0)
[2019-11-14] MEDS: OCTREOTIDE ACETATE 500 MCG in 0.9 % SODIUM CHLORIDE 100 ML IV SCH ×2 (04:02→15:31)
[2019-11-14] MEDS: SODIUM CHLORIDE 0.9% 1000ML 1,000 ML IV SCH (05:18)
[2019-11-14 08:14] LABS: Hematocrit (blood only) 39.8 % (37-47); Hemoglobin 13.7 g/dL (12.0-16.0); Mean Corpuscular Hemoglobin 32.2 pg (25-34); Mean Corpuscular Hgb Conc 34.4 g/dL (32-36); Mean Corpuscular Volume 93.4 fL (80-100); Mean Platelet Volume 10.1 fL (7.4-10.4); Platelet Count 119 K/uL (130-400); RDW Coefficient of Variation 14.4 % (11.5-14.5); Red Blood Count 4.26 M/uL (4.2-5.4); White Blood Count 4.75 K/uL (4.8-10.8)
[2019-11-14 08:34] LABS: INR 1.2 (0.9-1.1); Prothrombin Time 12.7 Seconds (9.0-12.0)
[2019-11-14] MEDS: MoRPHine SULFATE 2 MG/ML CARP IV PRN ×3 (08:49→20:39)
[2019-11-14] MEDS: PANTOprazole 40 MG in SYRINGE 0 ML IV SCH ×2 (08:51→20:27)
[2019-11-14] MEDS: FLUTICASONE/VILANTEROL 200/25MCG 14 PUFFS/INHALER INH SCH (08:51)
[2019-11-14 08:56] LABS: Albumin Globulin Ratio 0.8 (0.9-2); BUN Creatinine Ratio 10.3 (10-20); Bilirubin,Total 1.1 mg/dl (0.2-1); Creatinine Clr Calc Pharmacy 110.5 ml/min; Est GFR (African American) 114.4; Est GFR (Non-African American) 98.7; Globulin 3.8 gm/dl (2.5-4.0); Potassium 3.7 mmol/L (3.5-5.1); Total Protein 6.8 gm/dl (6.4-8.2)
[2019-11-14] MEDS: NICOTINE 14 MG/24 HR PATCH TD SCH (08:57)
[2019-11-14] MEDS: LOSARTAN POTASSIUM 25 MG TAB PO SCH (08:58)
[2019-11-14] MEDS: TRIHEXYPHENIDYL HCL 5 MG TAB PO SCH (08:58)
[2019-11-14] MEDS: POTASSIUM CHLORIDE 10 MEQ TABCR PO SCH (08:58)
[2019-11-14] MEDS: SERTRALINE HCL 50 MG TABLET PO SCH (08:59)
[2019-11-14] MEDS: RIFAXIMIN 550 MG TABLET PO SCH ×2 (08:59→20:27)
--- NOTE | 2019-11-14 09:13 | Gastroenterology Progress Note ---
Date of Service November 14, 2019 Assessment & Plan (1) GI bleedin54 year old female with history of liver disease presenting with hematochezia, stable vitals, HGB without BUN elevation. DDX discussed, likely lower GI source. NPO for EGD/Colon Please see consult for additional recommendations Thank you for allowing us to participate in the care of this patient. Please call with any acute changes, questions or concerns. Please see addendum below with additional recommendation from my supervising physician. Admission and Anticipated Discharge Date Admission Date: November 13, 2019 Supervising Physician Co-Signing Physician Notes I saw and evaluated the patient. We are planning to perform upper endoscopy and colonoscopy today for further evaluation of suspected gastrointestinal blood loss from arteriovenous malformations Subjective Persistent bloody BMs. Tolerated prep No nausea/vomiting Did have some black stools mixed in with BRB during prep HGB stable Physical Exam Constitutional: well developed and well nourished Respiratory: normal respiratory effort Cardiovascular: Rate/Rhythm: regular rate and regular rhythm Gastrointestinal (Abdomen): normal bowel sounds, soft, nontender, no hepatosplenomegaly Results & Data ([facility]) Vital Signs (Past 12 Hours) Vital Signs Temp Pulse Pulse Resp BP Pulse Ox 11/14/19 07:15 36.6 C 60 18 103/64 91 11/14/19 03:05 36.7 C 61 20 111/70 90 11/13/19 23:00 36.7 C 59 L 18 122/77 90 11/13/19 22:20 56 L (1) GI bleeding GI bleed type/associated pathology: gastritis Gastritis type: unspecified gastritis Qualified Code(s): K29.71 - Gastritis, unspecified, with bleeding
--- NOTE | 2019-11-14 11:56 | Hospitalist Progress Note ---
Date of Service November 14, 2019 Assessment & Plan (1) Hematochezia: Present on admission with hematochezia associated with abdominal pain CT abd/pelvis showed no acute intra-abdominal or pelvic findings. No evidence of bowel obstruction. No evidence of free air. No evidence of acute diverticulitis On gently hydration and IV PPI and octreotide drip Continue pain control Gastro on board Plan to get EGD /Colonoscopy today Currently getting Golytely GI prep Continue monitor electrolytes (2) HTN (hypertension): BP stable Continue losartan (3) Chronic diastolic CHF (congestive heart failure): 12/2018 echo: EF: 55% Denies any signs of fluid overload Will resume lasix in am (4) COPD (chronic obstructive pulmonary disease): No signs of exacerbation Continue home inhalers (5) Bipolar 1 disorder: (6) Anxiety: Continue home meds (7) Tobacco use disorder: Nicotine patch if needed Counseling on smoking cessation DVT Prophylaxis SCDs due to GI bleed CODE Status Full code Admission and Anticipated Discharge Date Admission Date: November 13, 2019 Subjective Pt was seen and examined Lying in bed with no distress Pt said that she is having tenderness in her lower abdomen She said that she continue to have blood in her stools Denies any chest pain, palpitation, dizziness and SOB Physical Exam Physical Exam: General- No acute distress Head- atraumatic Eyes- PERRL, EOMI, ENT- oropharynx clear Neck- supple, no JVD Lungs- clear to auscultation Heart- regular rhythm; +murmur Abdomen- normal bowel sounds, +tenderness across the lower abdomen Extremities- no calf tenderness Neuro- alert, oriented x 3; PERRL, EOMI; no facial palsy; no dysarthria Skin- warm & dry Results & Data Results & Data ([facility]) Vital Signs (Past 12 Hours) Vital Signs Temp Pulse Resp BP Pulse Ox 11/14/19 11:19 37.1 C 58 L 18 95/58 L 90 11/14/19 07:15 36.6 C 60 18 103/64 91 11/14/19 03:05 36.7 C 61 20 111/70 90
--- NOTE | 2019-11-14 12:01 | Anesthesiology Consultation ---
Date of Service November 14, 2019 Assessment & Plan (1) Encounter for pre-operative examination: Chart Review Chart Review: Acceptable Risk for Surgery Consults Requested none ASA ASA3 Proposed Anesthesia Anesthesia Type: MAC Risk / Benefits Reviewed With: PT / POA / Parent / Guardian, Accepts Plan and Informed Consent Obtained History Surgery Operation Date: 11/14/19 17:10 Proposed Procedures p Colonoscopy EGD Dr Contreras Chairez Height/Weight Height: 5 ft 5 in Weight: 102.2 kg Allergies Allergy/AdvReac Type Severity Reaction Status Date / Time strawberry Allergy Severe HIVES Verified 11/13/19 11:17 bee venom protein (honey bee) Allergy Unknown HIVES AND Verified 11/13/19 11:17 SWELLING pollen extracts Allergy Unknown UNKNOWN Verified 11/13/19 11:17 No Known Drug Allergies Allergy Verified 11/13/19 11:17 Hamilton Tar Allergy Mild Unknown Uncoded 11/13/19 11:17 Medications Home Medications Medication Instructions Recorded Confirmed Last Taken fluticasone propionate [Flonase 2 spray INTRANASAL DAILY PRN 02/22/18 11/13/19 09/05/18 Allergy Relief] furosemide [Lasix] 60 mg PO DAILY 02/22/18 11/13/19 11/13/19 pantoprazole [Protonix] 40 mg PO BID 02/22/18 11/13/19 11/13/19 ropinirole [Requip] 0.25 mg PO HS 02/22/18 11/13/19 11/12/19 albuterol sulfate 90 mcg/actuation 2 puffs INH Q6H PRN 11/28/18 11/13/19 Unknown aerosol inhaler budesonide-formoterol HFA 160 2 puffs INH BID 11/28/18 11/13/19 11/13/19 mcg-4.5 mcg/actuation aerosol inhaler ferrous sulfate 325 mg (65 mg 325 mg PO BID 11/28/18 11/13/19 11/13/19 iron) tablet,delayed release folic acid 1 mg tablet 1 mg PO QAM tab 11/28/18 11/13/19 11/13/19 losartan 25 mg tablet 25 mg PO DAILY tab 11/28/18 11/13/19 11/13/19 magnesium oxide 400 mg PO BID 11/28/18 11/13/19 11/13/19 montelukast 10 mg tablet 10 mg PO DAILY tab 11/28/18 11/13/19 11/12/19 multivitamin 1 tab PO DAILY tab 11/28/18 11/13/19 11/13/19 potassium chloride 10 mEq 10 meq PO DAILY tab 11/28/18 11/13/19 11/13/19 tablet,extended release rifaximin 550 mg tablet 550 mg PO BID 11/28/18 11/13/19 11/13/19 thiamine HCl (vitamin B1) 100 mg 100 mg PO DAILY tab 11/28/18 11/13/19 11/13/19 tablet albuterol sulfate 2.5 mg INH QID PRN 12/13/18 11/13/19 Unknown dextromethorphan-guaifenesin 30 1 tab PO Q12H PRN 12/13/18 11/13/19 Unknown mg-600 mg tablet extended hr lactulose 10 gram/15 mL oral 60 ml PO QID ml 12/13/18 11/13/19 11/13/19 solution ondansetron HCl 4 mg tablet 4 mg PO TID PRN 12/13/18 11/13/19 Unknown tramadol 50 mg tablet 50 mg PO BID PRN tab 12/13/18 11/13/19 Unknown trazodone 150 mg tablet 150 mg PO HS 12/13/18 11/13/19 11/12/19 trihexyphenidyl 5 mg tablet 2.5 mg PO DAILY 12/13/18 11/13/19 Unknown spironolactone 100 mg tablet 150 mg PO QAM tab 01/25/19 11/13/19 11/13/19 triamcinolone acetonide 0.5 % 1 appln TOP BID PRN 01/25/19 11/13/19 Unknown topical cream hydroxyzine HCl 25 mg PO BID PRN 04/27/19 11/13/19 Unknown dicyclomine 20 mg PO TID PRN #0 tab 04/29/19 11/13/19 09/06/18 lamotrigine 150 mg PO HS 11/13/19 11/13/19 11/12/19 sertraline 75 mg PO QAM 11/13/19 11/13/19 11/13/19 Active Medications Generic Name Dose Route Start Last Admin Trade Name Freq PRN Reason Stop Dose Admin Fluticasone/Vilanterol 1 puffs 11/14/19 09:00 11/14/19 08:51 Breo Ellipta 200/25 Mcg Inh INH 12/14/19 08:59 1 puffs DAILY ZULLY Administration Pantoprazole Sodium 40 mg/ 10 mls @ 5 mls/min 11/13/19 15:21 11/14/19 08:51 Syringe IV 12/13/19 15:20 5 mls/min BID ZULLY Administration Sodium Chloride 1,000 mls @ 80 mls/hr 11/13/19 15:51 11/14/19 12:02 Nss 1000ml IV 11/14/19 16:50 0 mls/hr .[id number] ZULLY Infusion Octreotide Acetate 500 mcg/ 105 mls @ 10.5 mls/hr 11/13/19 16:45 11/14/19 12:01 Sodium Chloride IV 12/13/19 16:44 0 mcg/hr .Q10H ZULLY 0 mls/hr Infusion 50 MCG/HR Ceftriaxone Sodium 2,000 mg/ 70 mls @ 140 mls/hr 11/13/19 17:00 11/13/19 18:49 Dextrose IV 11/23/19 16:59 Infused Q24H ZULLY Infusion Protocol Lamotrigine 150 mg 11/13/19 21:00 11/13/19 20:49 Lamictal PO 12/13/19 20:59 150 mg HS ZULLY Administration Losartan Potassium 25 mg 11/14/19 09:00 11/14/19 08:58 Cozaar PO 12/14/19 08:59 25 mg DAILY ZULLY Administration Miscellaneous 1 ea 11/14/19 08:59 11/14/19 08:57 Remove Nicoderm Patch N/A 12/14/19 08:58 1 ea DAILY@0859 ZULLY Administration Morphine Sulfate 2 mg 11/13/19 15:51 11/14/19 08:49 Morphine Sulfate IV 11/15/19 15:50 2 mg Q4H PRN Administration Pain Nicotine 14 mg 11/13/19 16:00 11/14/19 08:57 Nicoderm Cq TD 12/13/19 15:59 14 mg QAM ZULLY Administration Ondansetron HCl 4 mg 11/13/19 15:51 11/14/19 08:49 Zofran IV 12/13/19 15:50 4 mg Q6H PRN Administration Nausea Potassium Chloride 10 meq 07/16/20 09:00 11/14/19 08:58 Klor-Con M10 PO 12/14/19 08:59 10 meq DAILY ZULLY Administration Rifaximin 550 mg 11/13/19 21:00 11/14/19 08:59 Xifaxan PO 12/13/19 20:59 Not Given BID ZULLY Ropinirole HCl 0.25 mg 11/13/19 21:00 11/13/19 20:49 Requip PO 12/13/19 20:59 0.25 mg HS ZULLY Administration Sertraline HCl 75 mg 11/14/19 09:00 11/14/19 08:59 Zoloft PO 12/14/19 08:59 75 mg QAM ZULLY Administration Trazodone HCl 150 mg 11/13/19 21:00 11/13/19 20:48 Desyrel PO 12/13/19 20:59 150 mg HS ZULLY Administration Trihexyphenidyl HCl 2.5 mg 11/14/19 09:00 11/14/19 08:58 Trihexyphenidyl Hcl PO 12/14/19 08:59 2.5 mg DAILY ZULLY Administration NPO Date Last Intake of Fluids: 11/14/19 Time Last Intake of Fluids: 09:00 Last Intake of Fluids Comment: sip with meds, Okayed by GI PA at bedside Date Last Intake of Solids: 11/13/19 Time Last Intake of Solids: 18:00 Past Medical History Medical History Alcoholic cirrhosis (Chronic) Anemia, chronic disease (Chronic) Anxiety (Chronic) Asthma (Chronic) Bipolar 1 disorder (Chronic) Chronic diastolic CHF (congestive heart failure) COPD (chronic obstructive pulmonary disease) H/O alcohol abuse (Chronic) HTN, goal below 140/90 (Chronic) Hx of migraines (Chronic) MELVI (obstructive sleep apnea) Sleep apnea (Chronic) Tobacco use disorder (Chronic) Exercise / Class Metabolic Activity III < 4 Walking/Shop/Light housework Past Family History Family History Sister Diabetes Past Surgical History Surgical History History of spinal fusion History of total right knee replacement (Chronic) S/P cholecystectomy (Chronic) S/P tubal ligation (Chronic) Past Anesthesia History No Hx of Anesthesia Complications and No Family Hx of Anesthesia Complications History of PONV No Hx of PONV and No Hx of Motion Sickness Social History Smoking Status: Current every day smoker tobacco type: cigarettes Smoking cigarettes per day: 10 Do You Dip or Chew Tobacco: No Hx Alcohol Use: Yes (Quit 2016) Hx Substance Use: No Physical Exam Vital Signs Last Vital Signs Temp 99.0 F 11/14/19 12:19 Pulse 64 11/14/19 12:19 Resp 18 11/14/19 12:19 BP 105/57 L 11/14/19 12:19 Pulse Ox 92 11/14/19 12:19 ENMT Mouth: + edentulous Thyromental Distance: > or= 3.5 Finger Breadths Mallampati Class: II Neck normal visual inspection Respiratory normal respiratory effort Auscultation: lungs clear to auscultation bilaterally Cardiovascular Rate/Rhythm: regular rate and regular rhythm Testing Laboratory Results 11/14/19 07:33 11/14/19 07:33 PT 12.7 Seconds (9.0-12.0) H 11/14/19 07:33 INR 1.2 (0.9-1.1) H 11/14/19 07:33 APTT 31.2 Seconds (21.0-31.0) H 11/13/19 11:25 Blood Type O Positive 11/13/19 11:37 Antibody Screen NEGATIVE 11/13/19 11:37 Electrocardiogram Date: 11/13/19 Normal sinus rhythm, rate 64 bpm Normal ECG When compared with ECG of 06-SEP-2018 17:02, No significant change was found Confirmed by Luis M Martinez ([id number]) on 11/13/2019 7:24:58 PM
[2019-11-14] MEDS ORDERED: LIDOCAINE HCL 2% 2 ML VIAL/AMP(20MG/ML) INFIL ONE (12:34)
[2019-11-14] MEDS ORDERED: PROPOFOL IV EMULSION 10 MG/ML 20 ML VIAL IV ONE (12:34)
[2019-11-14] MEDS ORDERED: ePHEDrine sulfate 50 MG/ML SYR ONE (13:07)
--- NOTE | 2019-11-14 13:13 | GI REPORT ---
Patient Name: Marcia Mcgowan Procedure Date: 11/14/2019 12:37 PM Date of : 1965 Admit Type: Inpatient Age: 54 Gender: Female Attending MD: Ashley Chairez DO Procedure: Upper GI endoscopy Providers: Ashley Chairez DO Referring MD: ELIZABETH SALVADOR Indications: Hematochezia Medicines: Monitored Anesthesia Care Complications: No immediate complications. Estimated blood loss: Minimal. Estimated Blood Loss: Estimated blood loss was minimal. Procedure: Pre-Anesthesia Assessment: - Prior to the procedure, a History and Physical was performed, and patient medications, allergies and sensitivities were reviewed. The patient's tolerance of previous anesthesia was reviewed. - The risks and benefits of the procedure and the sedation options and risks were discussed with the patient. All questions were answered and informed consent was obtained. - Patient identification and proposed procedure were verified prior to the procedure by the physician, the nurse and the interior design faculty member. The procedure was verified in the procedure room. - Pre-procedure physical examination revealed no contraindications to sedation. - ASA Grade Assessment: III - A patient with severe systemic disease. - After reviewing the risks and benefits, the patient was deemed in satisfactory condition to undergo the procedure. - The anesthesia plan was to use monitored anesthesia care (MAC). - Immediately prior to administration of medications, the patient was re-assessed for adequacy to receive sedatives. - The heart rate, respiratory rate, oxygen saturations, blood pressure, adequacy of pulmonary ventilation, and response to care were monitored throughout the procedure. - The physical status of the patient was re-assessed after the procedure. After obtaining informed consent, the endoscope was passed under direct vision. Throughout the procedure, the patient's blood pressure, pulse, and oxygen saturations were monitored continuously. The Colonoscope was introduced through the mouth, and advanced to the fourth part of duodenum. The upper GI endoscopy was accomplished without difficulty. The patient tolerated the procedure well. Findings: The examined esophagus was normal. The Z-line was regular and was found 38 cm from the incisors. Estimated blood loss was minimal. A small hiatal hernia was found. The proximal extent of the gastric folds (end of tubular esophagus) was 38 cm from the incisors. The hiatal narrowing was 39 cm from the incisors. The Z-line was 38 cm from the incisors. The entire examined stomach was normal. The examined duodenum was normal. Impression: - Normal esophagus. - Z-line regular, 38 cm from the incisors. Small hiatal hernia (1-2 cm) - Normal stomach. - Normal examined duodenum. - No specimens collected. Recommendation: - Perform a colonoscopy today. Ashley Chairez D.O. Ashley Chairez, 11/14/2019 1:12:43 PM This report has been signed electronically. Note Initiated On: 11/14/2019 12:37 PM Number of Addenda: 0 I attest to the content of the Intraoperative Record and orders documented therein, exceptions below {[id number]}
--- NOTE | 2019-11-14 13:16 | GI REPORT ---
Patient Name: Marcia Mcgowan Procedure Date: 11/14/2019 12:36 PM Date of : 1965 Admit Type: Inpatient Age: 54 Gender: Female Attending MD: Ashley Chairez DO Procedure: Colonoscopy Providers: sAhley Chairez DO Referring MD: ELIZABETH SALVADOR Indications: Hematochezia Medicines: Monitored Anesthesia Care Complications: No immediate complications. Estimated blood loss: Minimal. Estimated Blood Loss: Estimated blood loss was minimal. Procedure: Pre-Anesthesia Assessment: - Prior to the procedure, a History and Physical was performed, and patient medications, allergies and sensitivities were reviewed. The patient's tolerance of previous anesthesia was reviewed. - The risks and benefits of the procedure and the sedation options and risks were discussed with the patient. All questions were answered and informed consent was obtained. - Patient identification and proposed procedure were verified prior to the procedure by the physician, the nurse and the siderographer. The procedure was verified in the pre-procedure area in the procedure room. - Pre-procedure physical examination revealed no contraindications to sedation. - ASA Grade Assessment: III - A patient with severe systemic disease. - After reviewing the risks and benefits, the patient was deemed in satisfactory condition to undergo the procedure. - The anesthesia plan was to use monitored anesthesia care (MAC). - Immediately prior to administration of medications, the patient was re-assessed for adequacy to receive sedatives. - The heart rate, respiratory rate, oxygen saturations, blood pressure, adequacy of pulmonary ventilation, and response to care were monitored throughout the procedure. - The physical status of the patient was re-assessed after the procedure. After I obtained informed consent, the scope was passed under direct vision. Throughout the procedure, the patient's blood pressure, pulse, and oxygen saturations were monitored continuously. The Colonoscope was introduced through the anus and advanced to the terminal ileum. The colonoscopy was performed without difficulty. The patient tolerated the procedure well. The quality of the bowel preparation was adequate to identify polyps 6 mm and larger in size. Findings: The digital rectal exam findings include non-thrombosed external hemorrhoids. Pertinent negatives include normal sphincter tone. The terminal ileum appeared normal. Internal hemorrhoids were found during retroflexion. The hemorrhoids were moderate. A 5 mm polyp was found in the sigmoid colon. The polyp was sessile. The polyp was removed with a cold snare. Resection and retrieval were complete. Estimated blood loss was minimal. The pathology specimen was placed into Bottle A. There is no endoscopic evidence of bleeding in the entire colon. Impression: - Non-thrombosed external hemorrhoids found on digital rectal exam. - The examined portion of the ileum was normal. - Internal hemorrhoids. - One 5 mm polyp in the sigmoid colon, removed with a cold snare. Resected and retrieved. Recommendation: - Return patient to hospital walls for ongoing care. - Advance diet as tolerated today. - Await pathology results. - Repeat colonoscopy in 5 years for surveillance based on pathology results. -Bleeding most likely related to an anorectal etiology such as internal hemorrhoids. -MiraLAX 17 g 1 time daily, begin a fiber supplement increase water intake. If significant rebleeding occurs would suggest general surgery follow-up Ashley Chairez D.O. Ashley Chairez, 11/14/2019 1:16:12 PM This report has been signed electronically. Note Initiated On: 11/14/2019 12:36 PM Number of Addenda: 0 I attest to the content of the Intraoperative Record and orders documented therein, exceptions below {[id number]}
--- NOTE | 2019-11-14 13:18 | Communication Note ---
Date of Service: November 14, 2019 The patient underwent upper endoscopy and colonoscopy today. There was no evidence of bleeding within the upper digestive or lower digestive tract today. The colonoscopy was notable for internal, external hemorrhoids and one small colonic polyp which was removed. I suspect that the patient's hematochezia was related to hemorrhoids. Should significant rebleeding occur perhaps the patient could see general surgery. As the stool that was in the colon was brown is unlikely related to a small bowel etiology Recommendations advance diet as tolerated Miralax 17 g 1 time daily Begin a fiber supplement GI to sign off
--- NOTE | 2019-11-14 13:22 | Anesthesiology Progress Note ---
Date of Service November 14, 2019 Anesthesia Post Procedure Vital Signs Vital Signs: Temp Pulse Pulse Resp BP BP Pulse Ox 11/14/19 13:11 70 16 103/59 L 95 11/14/19 12:19 99.0 F 64 18 105/57 L 92 11/14/19 11:19 98.8 F 58 L 18 95/58 L 90 11/14/19 07:15 97.9 F 60 18 103/64 91 11/14/19 03:05 98.1 F 61 20 111/70 90 11/13/19 23:00 98.1 F 59 L 18 122/77 90 11/13/19 22:20 56 L 11/13/19 19:19 98.2 F 55 L 20 92/56 L 88 L 11/13/19 16:34 65 11/13/19 16:02 98.8 F 63 20 121/73 90 11/13/19 14:01 66 21 92 11/13/19 13:31 61 14 213/129 H 94 Pain Intensity Lower Abdomen: Pain Intensity: 8 Transfer of Care Handoff Completed per policy Notes Mental Status: alert / awake / arousable and participated in evaluation Patient Amnestic to Procedure: Yes Nausea / Vomiting: adequately controlled Pain: adequately controlled Airway Patency, RR, SpO2: stable & adequate BP & HR: stable & adequate Hydration State: stable & adequate Anesthetic Complications: no major complications apparent and Pt Satisfied with anesthetic care
[2019-11-14] MEDS: cefTRIAXone SODIUM 2,000 MG in DEXTROSE 5% 50 ML IV SCH (17:38)
[2019-11-14] MEDS: TRAZODONE HCL 50 MG TAB PO SCH (20:25)
[2019-11-14] MEDS: FERROUS SULFATE 325 MG TAB PO SCH (20:25)
[2019-11-14] MEDS: lamoTRIgine 100 MG TAB PO SCH (20:26)
[2019-11-14] MEDS: ROPINIROLE HCL 0.25 MG TABLET PO SCH (20:27)
[2019-11-15] MEDS: OCTREOTIDE ACETATE 500 MCG in 0.9 % SODIUM CHLORIDE 100 ML IV SCH ×2 (02:15→12:29)
[2019-11-15] MEDS: MoRPHine SULFATE 2 MG/ML CARP IV PRN ×2 (09:16→14:10)
[2019-11-15] MEDS: PANTOprazole 40 MG in SYRINGE 0 ML IV SCH (09:17)
[2019-11-15] MEDS: MONTELUKAST SODIUM 10 MG TABLET PO SCH (09:24)
[2019-11-15] MEDS: TRIHEXYPHENIDYL HCL 5 MG TAB PO SCH (09:24)
[2019-11-15] MEDS: MULTIVITAMIN TAB PO SCH (09:24)
[2019-11-15] MEDS: FERROUS SULFATE 325 MG TAB PO SCH ×2 (09:24→20:13)
[2019-11-15] MEDS: FLUTICASONE/VILANTEROL 200/25MCG 14 PUFFS/INHALER INH SCH (09:24)
[2019-11-15] MEDS: POTASSIUM CHLORIDE 10 MEQ TABCR PO SCH (09:25)
[2019-11-15] MEDS: LOSARTAN POTASSIUM 25 MG TAB PO SCH (09:25)
[2019-11-15] MEDS: FOLIC ACID 1 MG TAB PO SCH (09:25)
[2019-11-15] MEDS: SERTRALINE HCL 50 MG TABLET PO SCH (09:25)
[2019-11-15] MEDS: MAGNESIUM OXIDE 400 MG TAB PO SCH ×2 (09:26→20:13)
[2019-11-15] MEDS: THIAMINE HCL 100 MG TAB PO SCH (09:26)
[2019-11-15] MEDS: RIFAXIMIN 550 MG TABLET PO SCH ×2 (09:26→20:15)
[2019-11-15] MEDS: NICOTINE 14 MG/24 HR PATCH TD SCH (09:27)
[2019-11-15] MEDS: POLYETHYLENE (MIRALAX) 17 GM PACK PO SCH (12:49)
[2019-11-15] MEDS ORDERED: LACTULOSE SYRUP 10 GM/15 ML BTL 960 ML PO SCH (13:00)
[2019-11-15] MEDS: LACTULOSE SYRUP 10 GM/15 ML BTL 960 ML PO SCH ×2 (14:06→20:14)
[2019-11-15] MEDS: cefTRIAXone SODIUM 2,000 MG in DEXTROSE 5% 50 ML IV SCH (17:22)
--- NOTE | 2019-11-15 18:21 | Hospitalist Progress Note ---
Date of Service November 15, 2019 Assessment & Plan (1) Hematochezia: Present on admission with hematochezia associated with abdominal pain Bleeding mostly related to internal hemorrhoids CT abd/pelvis showed no acute intra-abdominal or pelvic findings. No evidence of bowel obstruction. No evidence of free air. No evidence of acute diverticulitis On gently hydration and IV PPI and octreotide drip Continue pain control Gastro on board Colonoscopy on 11/13 showed portion of the ileum was normal. Internal hemorrhoids. One 5 mm polyp in the sigmoid colon, removed with a cold snare. Resected and retrieved. GI recommended to repeat colonoscopy in 5 years for surveillance based on pathology results. Continue MiraLAX 17 g 1 time daily, begin a fiber supplement increase water intake. If significant rebleeding occurs, will consult surgery EGD showed normal esophagus. Z-line regular, 38 cm from the incisors. Small hiatal hernia (1-2 cm) Normal stomach. Normal examined duodenum. IV PPI changed to PO PPI BID Octreotide discontinued (2) HTN (hypertension): BP stable Continue losartan (3) Chronic diastolic CHF (congestive heart failure): 12/2018 echo: EF: 55% Denies any signs of fluid overload Will resume lasix in am (4) COPD (chronic obstructive pulmonary disease): No signs of exacerbation Continue home inhalers (5) Bipolar 1 disorder: (6) Anxiety: Continue home meds (7) Tobacco use disorder: Nicotine patch if needed Counseling on smoking cessation DVT Prophylaxis SCDs due to GI bleed CODE Status Full code Admission and Anticipated Discharge Date Admission Date: November 13, 2019 Subjective Pt was seen and examined Lying in bed with no distress Pt said that her abdominal pain alittle better She said that the pain is in the lower abdomen Pt said that she did not have any BM today yet Denies any chest pain, palpitation, dizziness and SOB Physical Exam Physical Exam: General- No acute distress Head- atraumatic Eyes- PERRL, EOMI, ENT- oropharynx clear Neck- supple, no JVD Lungs- clear to auscultation Heart- regular rhythm; +murmur Abdomen- normal bowel sounds, +mild tenderness across the lower abdomen Extremities- no calf tenderness Neuro- alert, oriented x 3; PERRL, EOMI; no facial palsy; no dysarthria Skin- warm & dry Results & Data Results & Data ([facility]) Vital Signs (Past 12 Hours) Vital Signs Temp Pulse Pulse Resp BP BP Pulse Ox 11/15/19 15:39 65 11/15/19 15:30 37.0 C 61 18 108/68 90 11/15/19 11:23 37.2 C 63 18 107/62 93 11/15/19 08:00 62 11/15/19 07:40 36.9 C 65 18 110/64 90
[2019-11-15] MEDS ORDERED: MoRPHine SULFATE 4 MG/ML 1 ML CARP\\VIAL IV PRN (20:03)
[2019-11-15] MEDS: OXYCODONE HCL IR 5 MG TAB (IMMEDIATE RELEASE) PO PRN (20:11)
[2019-11-15] MEDS: TRAZODONE HCL 50 MG TAB PO SCH (20:12)
[2019-11-15] MEDS: PANTOprazole 40 MG TAB PO SCH (20:14)
[2019-11-15] MEDS: lamoTRIgine 100 MG TAB PO SCH (20:14)
[2019-11-15] MEDS: ROPINIROLE HCL 0.25 MG TABLET PO SCH (20:15)
[2019-11-15] MEDS ORDERED: IOVERSOL 100ml IV PRN (20:36)
--- NOTE | 2019-11-15 20:57 | CT Scan Report ---
ABDOMEN AND PELVIS CT WITH IV CONTRAST CT DOSE: 1195.56 mGy.cm HISTORY: Acute generalized abdominal pain worsening abd pain TECHNIQUE: Multiaxial CT images of the abdomen and pelvis were performed following the IV administrat ion of 94 cc of Optiray 320, A dose lowering technique was utilized adhering to the principles of [place]. COMPARISON STUDY: CT abdomen and pelvis 11/13/2019 FINDINGS: Subsegmental bibasilar opacities suggest atelectasis. There is no pneumatosis or pneumoperitoneum. Im aged inferior cardiac chambers are unremarkable. Splenomegaly with multiple splenic calcified granulo ordaz. Cholecystectomy. Unremarkable appearance of the liver. Upper and lower abdominal varices redemo nstrated. Unremarkable pancreas and adrenal glands. Kidneys are within normal limits. Partially decom pressed urinary bladder. Fibroid uterus. Moderate calcified plaque of the abdominal aorta without ane urysm. No adenopathy. High density material is noted within the distal esophagus and gastroesophageal junction. Moderate di stention of the debris-filled stomach. No bowel obstruction. No bowel wall thickening. Scattered air- fluid levels are noted within nondilated loops of large and small bowel. Mild colonic diverticulosis. No ascites or mesenteric inflammation. Is noninflamed appendix. 6 mm hyperdense focus within the genie endiceal tip suggests retained enteric contrast. Soft tissues are unremarkable. Postoperative changes of the lower lumbar spine with posterior interbody anna and screw fusion. No evidence of hardware fra cture or loosening. IMPRESSION: 1. No bowel obstruction or bowel wall thickening. 2. Scattered air-fluid levels within nondilated loops of large and small bowel may reflect underlying enteritis with diarrheal illness. 3. Fibroid uterus. 4. Splenomegaly with abdominal varices redemonstrated. 5. Cholecystectomy. ACT 112: Negative or not required by law. The above report was generated using voice recognition software. It may contain grammatical, syntax o r spelling errors. Electronically signed by: Shady Carter M.D. 11/15/2019 8:56 PM
[2019-11-15 23:03] LABS: Basophils # (auto) 0.02 K/uL (0-0.2); Basophils % (auto) 0.4 %; Eosinophils # (auto) 0.16 K/uL (0-0.5); Hematocrit (blood only) 36.9 % (37-47); Hemoglobin 12.5 g/dL (12.0-16.0); Lymphocytes # (auto) 2.16 K/uL (1.2-3.4); Mean Corpuscular Hemoglobin 31.9 pg (25-34); Mean Corpuscular Hgb Conc 33.9 g/dL (32-36); Mean Corpuscular Volume 94.1 fL (80-100); Mean Platelet Volume 9.6 fL (7.4-10.4); Monocytes # (auto) 0.37 K/uL (0.11-0.59); Neutrophils # (auto) 2.56 K/uL (1.4-6.5); Neutrophils % (auto) 48.6 %; Platelet Count 107 K/uL (130-400); RDW Coefficient of Variation 14.3 % (11.5-14.5); RDW Standard Deviation 49.3 fL (36.4-46.3); Red Blood Count 3.92 M/uL (4.2-5.4); White Blood Count 5.27 K/uL (4.8-10.8)
[2019-11-15 23:24] LABS: BUN Creatinine Ratio 7.6 (10-20); Calcium 8.3 mg/dl (8.5-10.1); Creatinine Clr Calc Pharmacy 85.3 ml/min; Est GFR (African American) 85.2; Est GFR (Non-African American) 73.5; Magnesium 2.1 mg/dl (1.8-2.4); Potassium 4.1 mmol/L (3.5-5.1)
[2019-11-15 23:30] LABS: Albumin Globulin Ratio 0.8 (0.9-2); Bilirubin,Total 0.6 mg/dl (0.2-1); Globulin 3.9 gm/dl (2.5-4.0); Total Protein 6.9 gm/dl (6.4-8.2)
[2019-11-16] MEDS ORDERED: SODIUM CHLORIDE 0.9% 500 ML IV ONE (01:10)
[2019-11-16 07:56] LABS: Hematocrit (blood only) 37.6 % (37-47); Hemoglobin 12.6 g/dL (12.0-16.0); Mean Corpuscular Hemoglobin 31.9 pg (25-34); Mean Corpuscular Hgb Conc 33.5 g/dL (32-36); Mean Corpuscular Volume 95.2 fL (80-100); Platelet Count 116 K/uL (130-400); RDW Coefficient of Variation 14.4 % (11.5-14.5); RDW Standard Deviation 50.4 fL (36.4-46.3); Red Blood Count 3.95 M/uL (4.2-5.4); White Blood Count 5.17 K/uL (4.8-10.8)
[2019-11-16 08:05] LABS: BUN Creatinine Ratio 9.6 (10-20); Calcium 8.1 mg/dl (8.5-10.1); Creatinine Clr Calc Pharmacy 98.3 ml/min; Est GFR (African American) 101.5; Est GFR (Non-African American) 87.5
[2019-11-16] MEDS: RIFAXIMIN 550 MG TABLET PO SCH (08:20)
[2019-11-16] MEDS: MULTIVITAMIN TAB PO SCH (08:20)
[2019-11-16] MEDS: TRIHEXYPHENIDYL HCL 5 MG TAB PO SCH (08:20)
[2019-11-16] MEDS: LOSARTAN POTASSIUM 25 MG TAB PO SCH (08:20)
[2019-11-16] MEDS: MONTELUKAST SODIUM 10 MG TABLET PO SCH (08:20)
[2019-11-16] MEDS: THIAMINE HCL 100 MG TAB PO SCH (08:21)
[2019-11-16] MEDS: POTASSIUM CHLORIDE 10 MEQ TABCR PO SCH (08:21)
[2019-11-16] MEDS: MAGNESIUM OXIDE 400 MG TAB PO SCH (08:22)
[2019-11-16] MEDS: FERROUS SULFATE 325 MG TAB PO SCH (08:22)
[2019-11-16] MEDS: POLYETHYLENE (MIRALAX) 17 GM PACK PO SCH (08:22)
[2019-11-16] MEDS: FOLIC ACID 1 MG TAB PO SCH (08:22)
[2019-11-16] MEDS: FLUTICASONE/VILANTEROL 200/25MCG 14 PUFFS/INHALER INH SCH (08:22)
[2019-11-16] MEDS: PANTOprazole 40 MG TAB PO SCH (08:22)
[2019-11-16] MEDS: NICOTINE 14 MG/24 HR PATCH TD SCH (08:23)
[2019-11-16] MEDS: SERTRALINE HCL 50 MG TABLET PO SCH (08:24)
[2019-11-16] MEDS ORDERED: SPIRONOLACTONE 100 MG TAB PO SCH (09:00)
[2019-11-16] MEDS ORDERED: FUROSEMIDE 20 MG TAB PO SCH (09:00)
[2019-11-16] MEDS: LACTULOSE SYRUP 10 GM/15 ML BTL 960 ML PO SCH ×2 (09:01→14:02)
[2019-11-16] MEDS: OXYCODONE HCL IR 5 MG TAB (IMMEDIATE RELEASE) PO PRN (13:58)
--- NOTE | 2019-11-16 16:35 | XRay Report ---
XR chest 1V portable CLINICAL HISTORY: hypoxia COMPARISON STUDY: Chest radiograph April 28, 2019. FINDINGS: Lung volumes are normal. Lungs are clear. There is no pneumothorax or pleural effusion. Car diac size is stable. Mediastinal contours are normal. There is no evidence for pulmonary edema. Sligh t interstitial prominence is unchanged from earlier exams. IMPRESSION: No acute cardiopulmonary findings. ACT 112: Negative or not required by law. Electronically signed by: Len Mayfield M.D. 11/16/2019 4:34 PM
--- NOTE | 2019-11-16 17:22 | Hospitalist Progress Note ---
Date of Service November 16, 2019 Assessment & Plan (1) Hematochezia: Present on admission with hematochezia associated with abdominal pain Bleeding mostly related to internal hemorrhoids CT abd/pelvis showed no acute intra-abdominal or pelvic findings. No evidence of bowel obstruction. No evidence of free air. No evidence of acute diverticulitis On gently hydration and IV PPI and octreotide drip Continue pain control Gastro on board Colonoscopy on 11/13 showed portion of the ileum was normal. Internal hemorrhoids. One 5 mm polyp in the sigmoid colon, removed with a cold snare. Resected and retrieved. GI recommended to repeat colonoscopy in 5 years for surveillance based on pathology results. Continue MiraLAX 17 g 1 time daily, begin a fiber supplement increase water intake. If significant rebleeding occurs, will consult surgery EGD showed normal esophagus. Z-line regular, 38 cm from the incisors. Small hiatal hernia (1-2 cm) Normal stomach. Normal examined duodenum. IV PPI changed to PO PPI BID Octreotide discontinued Clinically improved (2) HTN (hypertension): BP stable Continue losartan (3) Chronic diastolic CHF (congestive heart failure): 12/2018 echo: EF: 55% CXR showed no acute cardiopulmonary findings. Denies any signs of fluid overload Continue Lasix and spironolactone (4) COPD (chronic obstructive pulmonary disease): No signs of exacerbation Continue home inhalers (5) Hypoxia: CXR showed no acute cardiopulmonary findings. Continue to require oxygen supplement 2 step done and pt requires 2L NC at rest and 4L NC with ambulation Pt will need to eval for sleep study as an outpatient Counseling pt about smoking cessation while on oxygen (Danger that can cause fire) (6) Bipolar 1 disorder: (7) Anxiety: Continue home meds (8) Tobacco use disorder: Nicotine patch if needed Counseling on smoking cessation DVT Prophylaxis SCDs due to GI bleed CODE Status Full code Disposition Will discharge home today Follow up with your PCP Admission and Anticipated Discharge Date Admission Date: November 13, 2019 Subjective Pt was seen and examined Lying in bed with no distress Pt said that her abdominal pain improves significantly She said that she feels much better Pt said that her breathing feels a lot better with the oxygen supplement She said that would like to go home tonight She said that her would like her to come home today Denies any chest pain, palpitation, dizziness and fever Physical Exam Physical Exam: General- No acute distress Head- atraumatic Eyes- PERRL, EOMI, ENT- oropharynx clear Neck- supple, no JVD Lungs- clear to auscultation Heart- regular rhythm; +murmur Abdomen- normal bowel sounds, +mild tenderness across the lower abdomen with deep palpation Extremities- no calf tenderness Neuro- alert, oriented x 3; PERRL, EOMI; no facial palsy; no dysarthria Skin- warm & dry Results & Data Results & Data ([facility]) Vital Signs (Past 12 Hours) Vital Signs Temp Pulse Pulse Pulse Pulse Pulse Pulse 11/16/19 15:44 79 81 76 69 60 63 11/16/19 15:09 37.2 C 11/16/19 11:21 37.0 C 11/16/19 08:20 11/16/19 07:16 37.1 C Pulse Resp Resp Resp Resp Resp Resp 11/16/19 15:44 20 20 20 18 18 11/16/19 15:09 61 18 11/16/19 11:21 60 18 11/16/19 08:20 11/16/19 07:16 55 L 18 Resp BP Pulse Ox Pulse Ox Pulse Ox Pulse Ox Pulse Ox 11/16/19 15:44 18 86 L 88 L 90 84 L 11/16/19 15:09 108/66 94 11/16/19 11:21 111/69 90 11/16/19 08:20 90 11/16/19 07:16 106/67 86 L Pulse Ox Pulse Ox 11/16/19 15:44 93 89 L 11/16/19 15:09 11/16/19 11:21 11/16/19 08:20 11/16/19 07:16
[2019-11-17] MEDS ORDERED: SPIRONOLACTONE 25 MG TAB PO SCH (09:00)
[2019-11-17] MEDS ORDERED: FUROSEMIDE 20 MG TAB PO SCH (09:00)
--- NOTE | 2019-11-18 09:28 | Discharge Summary ---
Date of Service November 16, 2019 Admission HPI Per Admitting Provider Pt is 54 y/o F with PMH alcoholic cirrhosis, ascites, AVM s/p clipping in 03/2019, Kelly's esophagus, tobacco use presented to ER with c/o hematochezia started yesterday. Pt states had approx 3 BM's a day. Initially was formed stool then loose and described as grossly red blood that colored toilet bowel water. Also c/o lower abdominal cramping that has been constant since yesterday. Pt states baseline lightheadedness with standing, thinks may be a bit worse today. C/O shortness of breath with exertion at baseline. Denies CP, cough or fever. Denies ETOH use since 3 years ago, diaphoresis, N/V, syncope, vision changes, neck pain, sore throat, choking, otalgia, rhinorrhea, paresthesias, weakness, extremity edema, rashes, urinary symptoms, epistaxis. Admission Exam Per Admitting Provider General: no distress, obese Head: normocephalic, atraumatic Eyes: PERRL, EOM's intact, conjunctiva non-injected, anicteric ENT: normal inspection external ears, nose, mucous membranes moist Neck: supple, trachea midline Lungs: clear, no respiratory distress, slight rales noted bilateral bases, no wheezing/rhonchi CV: RRR, systolic murmur, no pretibial edema Abd: normal BS, soft, +tenderness to palpation entire lower abdomen Ext: no cyanosis, no calf tenderness Neuro: A&O x 3, no focal deficits noted, normal affect Skin: warm, dry Principal Diagnosis (1) Hematochezia: (2) HTN (hypertension): (3) Chronic diastolic CHF (congestive heart failure): (4) COPD (chronic obstructive pulmonary disease): (5) Hypoxia: (6) Bipolar 1 disorder: (7) Anxiety: (8) Tobacco use disorder: Discharge Exam General- No acute distress Head- atraumatic Eyes- PERRL, EOMI, ENT- oropharynx clear Neck- supple, no JVD Lungs- clear to auscultation Heart- regular rhythm; +murmur Abdomen- normal bowel sounds, +mild tenderness across the lower abdomen with deep palpation Extremities- no calf tenderness Neuro- alert, oriented x 3; PERRL, EOMI; no facial palsy; no dysarthria Skin- warm & dry Discharge Data Allergies Allergy/AdvReac Type Severity Reaction Status Date / Time strawberry Allergy Severe HIVES Verified 11/13/19 11:17 bee venom protein (honey bee) Allergy Unknown HIVES AND Verified 11/13/19 11:17 SWELLING pollen extracts Allergy Unknown UNKNOWN Verified 11/13/19 11:17 No Known Drug Allergies Allergy Verified 11/13/19 11:17 [place] Tar Allergy Mild Unknown Uncoded 11/13/19 11:17 Consultations 11/13/19 14:54 ED Decision to Admit Stat 11/13/19 15:51 Consult Gastroenterology Routine Procedures Performed Operation Date: 11/14/19 17:10 Actual Procedures p Colonoscopy Polypectomy - Ashley Chairez s Esophagogastroduodenoscopy - Ashley Chairez Ordered Studies 11/13/19 11:30 CT abd pelvis IV con only Stat 11/15/19 20:01 CT abd pelvis IV con only Urgent CT abd pelvis IV con only CLINICAL HISTORY: Right lower quadrant pain with gastrointestinal bleeding COMPARISON STUDY: 04/27/2019 TECHNIQUE: Patient was scanned in a dynamic helical fashion during intravenous administration of 95 cc of Optiray 320. A dose lowering technique was utilized adhering to the principles of ALARA. CT DOSE: 1015.26 mGycm FINDINGS: Lower chest: There are basilar atelectatic changes Liver: The contrast-enhanced liver is normal in size, contour, and attenuation. There is no intrahepatic biliary ductal dilatation. The hepatic veins and portal veins are patent. Gallbladder: Surgically absent Spleen: Enlarged measuring 14 cm. Pancreas: Unremarkable. Adrenal glands: Unremarkable. Kidneys: There is symmetric renal cortical enhancement. The kidneys are normal in size without hydronephrosis. Bowel: There are no transition zones to indicate bowel obstruction. There is no evidence of acute diverticulitis. The appendix appears normal. Peritoneum: There is no free air. There is trace fluid in the pelvis likely physiologic Vasculature: There is no evidence of abdominal aortic aneurysm. There are prominent retroperitoneal varices. There are varices in the region of the gastrohepatic ligament. Adenopathy: None. Pelvic viscera: There is a suspected uterine fibroid. No bladder abnormalities are visualized Skeletal structures: Postsurgical changes are present within the cervical spine IMPRESSION: 1. No acute intra-abdominal or pelvic findings 2. No evidence of bowel obstruction. No evidence of free air 3. Normal appendix. No evidence of acute diverticulitis 4. Splenomegaly, and retroperitoneal and gastrohepatic ligament region varices ACT 112: Negative or not required by law. Electronically signed by: Jesús Esquivel M.D. 11/13/2019 12:46 PM Dictated: 11/13/191239 Transcribed: 11/13/191239 ABDOMEN AND PELVIS CT WITH IV CONTRAST CT DOSE: 1195.56 mGy.cm HISTORY: Acute generalized abdominal pain worsening abd pain TECHNIQUE: Multiaxial CT images of the abdomen and pelvis were performed following the IV administration of 94 cc of Optiray 320, A dose lowering technique was utilized adhering to the principles of ALARA. COMPARISON STUDY: CT abdomen and pelvis 11/13/2019 FINDINGS: Subsegmental bibasilar opacities suggest atelectasis. There is no pneumatosis or pneumoperitoneum. Imaged inferior cardiac chambers are unremarkable. Splenomegaly with multiple splenic calcified granulomata. Cholecystectomy. Unremarkable appearance of the liver. Upper and lower abdominal varices redemonstrated. Unremarkable pancreas and adrenal glands. Kidneys are within normal limits. Partially decompressed urinary bladder. Fibroid uterus. Moderate calcified plaque of the abdominal aorta without aneurysm. No adenopathy. High density material is noted within the distal esophagus and gastroesophageal junction. Moderate distention of the debris-filled stomach. No bowel obstruction. No bowel wall thickening. Scattered air-fluid levels are noted within nondilated loops of large and small bowel. Mild colonic diverticulosis. No ascites or mesenteric inflammation. Is noninflamed appendix. 6 mm hyperdense focus within the appendiceal tip suggests retained enteric contrast. Soft tissues are unremarkable. Postoperative changes of the lower lumbar spine with posterior interbody anna and screw fusion. No evidence of hardware fracture or loosening. IMPRESSION: 1. No bowel obstruction or bowel wall thickening. 2. Scattered air-fluid levels within nondilated loops of large and small bowel may reflect underlying enteritis with diarrheal illness. 3. Fibroid uterus. 4. Splenomegaly with abdominal varices redemonstrated. 5. Cholecystectomy. ACT 112: Negative or not required by law. The above report was generated using voice recognition software. It may contain grammatical, syntax or spelling errors. Electronically signed by: Shady Carter M.D. 11/15/2019 8:56 PM Dictated: 11/15/192049 Transcribed: 11/15/192049 XR chest 1V portable CLINICAL HISTORY: hypoxia COMPARISON STUDY: Chest radiograph April 28, 2019. FINDINGS: Lung volumes are normal. Lungs are clear. There is no pneumothorax or pleural effusion. Cardiac size is stable. Mediastinal contours are normal. There is no evidence for pulmonary edema. Slight interstitial prominence is unchanged from earlier exams. IMPRESSION: No acute cardiopulmonary findings. ACT 112: Negative or not required by law. Electronically signed by: Len Mayfield M.D. 11/16/2019 4:34 PM Dictated: 11/16/19 1633 Transcribed: 11/16/19 1633 Hospital Course (1) Hematochezia: Present on admission with hematochezia associated with abdominal pain Bleeding mostly related to internal hemorrhoids CT abd/pelvis showed no acute intra-abdominal or pelvic findings. No evidence of bowel obstruction. No evidence of free air. No evidence of acute diverticulitis On gently hydration and IV PPI and octreotide drip Continue pain control Gastro on board Colonoscopy on 11/13 showed portion of the ileum was normal. Internal hemorrhoids. One 5 mm polyp in the sigmoid colon, removed with a cold snare. Resected and retrieved. GI recommended to repeat colonoscopy in 5 years for surveillance based on pathology results. Continue MiraLAX 17 g 1 time daily, begin a fiber supplement increase water intake. If significant rebleeding occurs, will consult surgery EGD showed normal esophagus. Z-line regular, 38 cm from the incisors. Small hiatal hernia (1-2 cm) Normal stomach. Normal examined duodenum. IV PPI changed to PO PPI BID Octreotide discontinued Clinically improved (2) HTN (hypertension): BP stable Continue losartan (3) Chronic diastolic CHF (congestive heart failure): 12/2018 echo: EF: 55% CXR showed no acute cardiopulmonary findings. Denies any signs of fluid overload Continue Lasix and spironolactone (4) COPD (chronic obstructive pulmonary disease): No signs of exacerbation Continue home inhalers (5) Hypoxia: CXR showed no acute cardiopulmonary findings. Continue to require oxygen supplement 2 step done and pt requires 2L NC at rest and 4L NC with ambulation Pt will need to eval for sleep study as an outpatient Counseling pt about smoking cessation while on oxygen (Danger that can cause fire) (6) Bipolar 1 disorder: (7) Anxiety: Continue home meds (8) Tobacco use disorder: Nicotine patch if needed Counseling on smoking cessation DVT Prophylaxis SCDs due to GI bleed CODE Status Full code Disposition Will discharge home today Follow up with your PCP Total Time Total Time Spent Total Time Spent (In Minutes): 35 minutes Total Time Includes: Examination of the Patient, Discharge Planning, Medication Reconciliation, Communication With Other Providers and Other Discharge Plan Discharge Items Patient Disposition: Home - Self-Care Reason For Visit: HEMATOCHEZIA Discharge Diagnosis: Hematochezia HTN (hypertension) Chronic diastolic CHF (congestive heart failure) COPD (chronic obstructive pulmonary disease): Hypoxia Tobacco use disorder: Condition on Discharge: Good Activity: Resume your previous activity Non-emergency contact: Primary Care Provider Call non-emergency contact if: you have any medication questions and your pain is worsening Follow-up/Referrals: Rangel Crane DO [Primary Care Provider] - 11/21/19 3:00 pm (11/21/2019 3:00 PM Provider Rangel Crane DO Department General Internal Medicine [facility] ) Diet: Heart Healthy Addtl Attending Provider Instructions: Follow up with your primary care provider in 1 week ( office will call you for the appointment) You will need to follow with pulmonology (Lung specialist) to arrange for a sleep study (your physician will refer you ) Continue oxygen supplement with 2 liter nasal cannula at rest and 4 liter cannula with ambulation Please hold tramadol if you become drowsy ans lethargy Do no drive or operate any machine after taking the tramadol Counseling on smoking cessation ( can lead to fire if smoking around the oxygen tank) fall precaution Pending Studies at Discharge: No Stand-Alone Forms: My [facility], Smoking Cessation Medications and DC Order Prescriptions: New polyethylene glycol 3350 [Miralax] 17 gram Powder In Packet 17 g PO DAILY Qty: 30 RF: 0 psyllium Packet 1 pkt PO DAILY Qty: 30 RF: 0 Continued Symbicort 160-4.5 mcg/actuation HFA aerosol inhaler 2 puffs INH BID RF: 0 albuterol sulfate [Ventolin HFA] 90 mcg/actuation HFA aerosol inhaler 2 puffs INH Q6H PRN (Reason: Shortness Of Breath) RF: 0 Xifaxan 550 mg tablet 550 mg PO BID RF: 0 albuterol sulfate 2.5 mg /3 mL (0.083 %) solution for nebulization 2.5 mg INH QID PRN (Reason: Shortness Of Breath) RF: 0 lactulose 10 gram/15 mL solution 60 ml PO QID RF: 0 Mucinex DM 30-600 mg tablet extended release 12 hr 1 tab PO Q12H PRN (Reason: Congestion) RF: 0 ondansetron HCl 4 mg tablet 4 mg PO TID PRN (Reason: Acid Reflux) RF: 0 trazodone 150 mg tablet 150 mg PO HS RF: 0 trihexyphenidyl 5 mg tablet 2.5 mg PO DAILY RF: 0 triamcinolone acetonide 0.5 % cream 1 appln TOP BID PRN (Reason: Rash) RF: 0 folic acid 1 mg tablet 1 mg PO QAM RF: 0 hydroxyzine HCl 25 mg tablet 25 mg PO BID PRN (Reason: anxiety) RF: 0 dicyclomine 20 mg tablet 20 mg PO TID PRN (Reason: Abdominal Pain) Qty: 0 RF: 0 furosemide [Lasix] 40 mg tablet 60 mg PO DAILY RF: 0 ropinirole [Requip] 0.25 mg tablet 0.25 mg PO HS RF: 0 pantoprazole [Protonix] 40 mg tablet,delayed release (DR/EC) 40 mg PO BID RF: 0 fluticasone propionate [Flonase Allergy Relief] 50 mcg/actuation spray,suspension 2 spray Intranasal DAILY PRN (Reason: Allergy Symptoms) RF: 0 ferrous sulfate 325 mg (65 mg iron) tablet,delayed release (DR/EC) 325 mg PO BID RF: 0 losartan [Cozaar] 25 mg tablet 25 mg PO DAILY RF: 0 magnesium oxide 400 mg magnesium tablet 400 mg PO BID RF: 0 montelukast [Singulair] 10 mg tablet 10 mg PO DAILY RF: 0 multivitamin tablet 1 tab PO DAILY RF: 0 potassium chloride [Klor-Con 10] 10 mEq tablet extended release 10 meq PO DAILY RF: 0 thiamine HCl (vitamin B1) [Vitamin B-1] 100 mg tablet 100 mg PO DAILY RF: 0 spironolactone [Aldactone] 100 mg tablet 150 mg PO QAM RF: 0 lamotrigine 150 mg tablet 150 mg PO HS RF: 0 sertraline 50 mg tablet 75 mg PO QAM RF: 0 tramadol [Ultram] 50 mg tablet 50 mg PO BID PRN (Reason: Pain) Qty: 10 RF: 0 Discharge Orders: Discharge Order (Routine); Ordered 11/16/19 Ordered By: Delma Quan Admission Data Admit Date/Time: 11/13/19 14:43 Attending Provider: Delma Quan Admit Provider: Inocencio Blanco Primary Care Provider: Rangel Crane Other Providers: Inocencio Blanco ; Ashley Chairez Other Interventions: Discharge Summary Assessment (RN) Last Done: 11/16/19 18:08 DC Date/Time DO NOT enter until pt leaves facility: 11/16/19 18:37
== END 2019-11-16 18:37 | disposition home or self-care (01) ==
LOC: ED 10:22 → 2N 14:43 → INTOOBSV 14:43 → SUATTDRO 14:43 → 2N 15:17

== ENCOUNTER 2020-02-05 11:25 | Inpatient (IN) ==
--- NOTE | 2020-02-05 12:20 | Emergency Department Note ---
Impression & Plan Asthma exacerbation in COPD, Hypoxia ED Provider Note NAME: MAIKOL PETERSON AGE: 54 SEX: F : 1965 ARRIVES VIA: Walk-In INFORMANT: Patient, ED PROVIDER(S): Marck Waller DO CHIEF COMPLAINT: Shortness of breath HPI: The patient is a 54-year-old female who presented to the emergency department for an evaluation of shortness of breath. The patient has had ongoing symptoms since last week. She was seen by her primary care physician last week for similar complaints. She was started on medications but she continues to have worsening symptoms. She now develops chest pain which worsens with exertion. She also has dyspnea on exertion. She states that she has a cough which is sometimes productive for clear sputum. She denies having any lower extremity swelling or pain. The patient recently stopped using tobacco pr oducts. The patient presented to the emergency department through triage. She called her primary care physician and was referred to the emergency department for further evaluation. She states her symptoms are sometimes improved with increasing her oxygen. She normally wears 2 L of oxygen nasal cannula. She has had to increase this to 5 L recently. ROS: See above HPI for pertinent positives & negatives. A total of 10 systems reviewed and were otherwise negative. PAST MEDICAL HISTORY: See Below PAST SURGICAL HISTORY: See Below FAMILY HISTORY: See Below SOCIAL HISTORY: See Below HOME MEDICATIONS: See Below ALLERGIES: See Below VITALS: See Below PHYSICAL EXAMINATION: GENERAL: Patient is awake alert in no acute distress patient is resting comfortably and showing no signs of anxiety EYES: The conjunctivae are clear. The pupils are round and reactive. EARS, NOSE, MOUTH AND THROAT: The nose is without any evidence of any deformity. Mucous membranes are moist. Tongue is midline. NECK: The neck is nontender and supple. RESPIRATORY: Shallow respirations were noted. Expiratory wheezing was noted with rales at both bases. There was conversational dyspnea appreciated. CARDIOVASCULAR: Regular rate and rhythm noted there no murmurs rubs or gallops normal S1 normal S2. GASTROINTESTINAL: The abdomen is soft. Abdomen is nontender. MUSCULOSKELETAL/EXTREMITIES: There is no evidence of gross deformity full range of motion is noted in the hips and shoulders. SKIN: There is no obvious evidence of any rash. There are no petechiae, pallor or cyanosis noted. Clubbing of the fingers was noted. NEUROLOGIC: Patient is awake alert and oriented x3 strength is symmetric patellar reflexes are 2+ bilaterally MEDICAL DECISION MAKING: The patient is a 54-year-old female who presented to the emergency department with worsening shortness of breath. The patient has a history of COPD and tobacco use. She recently stopped using tobacco products. She normally wears 2 L of nasal cannula oxygen but has to increase the oxygen recently because of ongoing worsening symptoms. She presented to the emergency department with significant hypoxia. She was treated with bronchodilator therapy and IV steroids. I discussed the patient's laboratory and radiographic studies with her. Given the degree of hypoxia a d-dimer was ordered which was elevated. CT angiography of the chest did not reveal any signs of venous pulmonary thromboembolic disease. The patient was feeling somewhat improved but still had significant oxygen requirement. For this reason I discussed her case with the on-call [facility] group. They will evaluate the patient in the emergency department for further management and disposition. Triage Nursing notes reviewed. Prior medical records reviewed Vital Signs: reviewed and remarkable for hypertension and hypoxia. Differential diagnosis: Reactive airway disease, pneumonia, pneumothorax, COPD, CHF, infections, cardiac ischemia, pulmonary embolism, musculoskeletal, gastrointestinal, as well as other pathologies. ER treatment provided: See below Diagnostics interpreted by me: ECG: EKG was obtained in the emergency department. My interpretation is normal sinus rhythm at 77 bpm. There is no ectopy. Inferior ST segment abnormalities were noted. This was compared to a tracing from November 122019. No significant changes were noted. Cardiac Monitoring: An order was placed for continuous cardiac monitoring. The monitor shows a rate of 85 bpm with sinus rhythm. Laboratory studies: As stated above and show below. Imaging studies: See below Consultation(s): 1500: I discussed this case with Tanika who is on-call for the [facility] group. They will evaluate the patient in the emergency department for further management and disposition. ED COURSE: Procedures: none PDMP:reviewed and no issues Critical Care: I have personally spent greater than 45 minutes of critical care time in the direct management of this patient. This includes bedside care, interpretation of diagnostic studies, and testing, discussion with consultants, patient, and family members, and other required patient management activities. This 45 minutes is in excess of all separately billable procedures. Past Med/Surg History Medical History Alcoholic cirrhosis Anemia, chronic disease Anxiety Asthma Bipolar 1 disorder Chronic diastolic CHF (congestive heart failure) COPD (chronic obstructive pulmonary disease) H/O alcohol abuse HTN, goal below 140/90 Hx of migraines MELVI (obstructive sleep apnea) Sleep apnea Tobacco use disorder Surgical History History of spinal fusion History of total right knee replacement S/P cholecystectomy S/P tubal ligation Family History Sister Diabetes Social History Smoking Status: Current every day smoker Cigarettes Per Day: 10; Second Hand Exposure: No; Hx Alcohol Use: Yes (Quit 2017) Hx Substance Use: No Preferred Language: [place] Citizen Communication Ability: Effective [employer] Driver Required: No Beliefs That Will Affect Care: None marital status: Current Living Situation: Alone How many Children do You have: 4 Feels Safe at Home: Yes Assistive Devices: Oxygen - Continuous Allergies Allergies Allergy/AdvReac Type Severity Reaction Status Date / Time strawberry Allergy Severe HIVES Verified 02/05/20 14:35 bee venom protein (honey bee) Allergy Unknown HIVES AND Verified 02/05/20 14:35 SWELLING pollen extracts Allergy Unknown UNKNOWN Verified 02/05/20 14:35 No Known Drug Allergies Allergy Verified 02/05/20 14:35 River Tar Allergy Mild Unknown Uncoded 02/05/20 14:35 Home Meds Home Medications Medication Instructions Recorded Confirmed fluticasone propionate [Flonase 2 spray INTRANASAL DAILY PRN 02/22/18 02/05/20 Allergy Relief] furosemide [Lasix] 40 mg PO BID 02/22/18 02/05/20 pantoprazole [Protonix] 40 mg PO BID 02/22/18 02/05/20 ropinirole [Requip] 0.25 mg PO HS 02/22/18 02/05/20 albuterol sulfate 90 mcg/actuation 2 puffs INH Q6H PRN 11/28/18 02/05/20 aerosol inhaler budesonide-formoterol HFA 160 2 puffs INH BID 11/28/18 02/05/20 mcg-4.5 mcg/actuation aerosol inhaler ferrous sulfate 325 mg (65 mg 325 mg PO BID 11/28/18 02/05/20 iron) tablet,delayed release folic acid 1 mg tablet 1 mg PO QAM tab 11/28/18 02/05/20 losartan 25 mg tablet 25 mg PO DAILY tab 11/28/18 02/05/20 magnesium oxide 400 mg PO BID 11/28/18 02/05/20 montelukast 10 mg tablet 10 mg PO HS tab 11/28/18 02/05/20 potassium chloride 10 mEq 10 meq PO DAILY tab 11/28/18 02/05/20 tablet,extended release rifaximin 550 mg tablet 550 mg PO BID 11/28/18 02/05/20 thiamine HCl (vitamin B1) 100 mg 100 mg PO QAM tab 11/28/18 02/05/20 tablet dextromethorphan-guaifenesin 30 1 tab PO Q12H PRN 12/13/18 02/05/20 mg-600 mg tablet extended qhyulus58 hr lactulose 10 gram/15 mL oral 60 ml PO QID ml 12/13/18 02/05/20 solution ondansetron HCl 4 mg tablet 4 mg PO Q8H PRN 12/13/18 02/05/20 trihexyphenidyl 5 mg tablet 2.5 mg PO DAILY 12/13/18 02/05/20 spironolactone 100 mg tablet 150 mg PO QAM tab 01/25/19 02/05/20 hydroxyzine HCl 25 mg PO BID PRN 04/27/19 02/05/20 lamotrigine 150 mg PO HS 11/13/19 02/05/20 sertraline 75 mg PO QAM 11/13/19 02/05/20 baclofen 10 mg PO TID 02/05/20 02/05/20 benzonatate 100 mg PO TID PRN 02/05/20 02/05/20 dicyclomine 20 mg PO BID 02/05/20 02/05/20 multivitamin [Tab-A-Malinda] 1 tab PO QAM 02/05/20 02/05/20 polyethylene glycol 3350 [Miralax] 17 g PO DAILY PRN 02/05/20 02/05/20 tramadol [Ultram] 50 mg PO BID PRN 02/05/20 02/05/20 trazodone 100 mg PO HS 10/07/20 10/07/20 Previous Rx's Medication Instructions Recorded psyllium 1 pkt PO DAILY #30 ea 11/16/19 Results & Data (ED) Vital Signs Vital Signs - 24 hr 02/05/20 11:26 02/05/20 11:39 02/05/20 12:34 Temperature 37.2 C Temperature Source Oral Pulse Rate 80 Pulse Rate [Left Finger] 70 Pulse Rhythm Regular Respiratory Rate 30 H 16 Respiratory Effort / Characteristics Non-Labored Labored Nasal Congestion Respiratory Depth Normal Respiratory Pattern Regular Grunting Blood Pressure 126/67 Blood Pressure [Left Arm] 139/62 Blood Pressure Mean 86 Blood Pressure Mean [Left Arm] 87 Pulse Oximetry 79 L 96 Oxygen Delivery Method Nasal Cannula Nasal Cannula Oxygen Flow Rate 5 Sepsis Recent Fever Within 48 Hours No Sepsis New/Unexplained Change in Mental Status No Sepsis Action Taken by Nursing No Action Required 02/05/20 14:00 02/05/20 14:56 02/05/20 16:00 Temperature Temperature Source Pulse Rate Pulse Rate [Left Finger] 74 70 91 H Pulse Rhythm Respiratory Rate 26 H 17 22 Respiratory Effort / Characteristics Non-Labored Spontaneous Respiratory Depth Respiratory Pattern Blood Pressure Blood Pressure [Left Arm] 152/62 H 161/86 H Blood Pressure Mean Blood Pressure Mean [Left Arm] 92 111 Pulse Oximetry 94 97 96 Oxygen Delivery Method Nasal Cannula Nasal Cannula Nasal Cannula Oxygen Flow Rate 5 5 5 Sepsis Recent Fever Within 48 Hours Sepsis New/Unexplained Change in Mental Status Sepsis Action Taken by Skilled Nursing Medications Current Medication List: was personally reviewed by me Laboratory Data Attestation: I reviewed the patient's lab results. Result diagrams: 02/05/20 12:20 02/05/20 12:20 Lab Results 02/05/20 02/05/20 02/05/20 Range/Units 12:20 12:20 12:20 WBC 7.25 (4.8-10.8) K/uL RBC 4.34 (4.2-5.4) M/uL Hgb 14.0 (12.0-16.0) g/dL Hct 40.8 (37-47) % MCV 94.0 (80-100) fL MCH 32.3 (25-34) pg MCHC 34.3 (32-36) g/dL RDW Std Deviation 47.4 H (36.4-46.3) fL RDW Coeff of Gregg 13.6 (11.5-14.5) % Plt Count 152 (130-400) K/uL MPV 9.7 (7.4-10.4) fL Immature Gran % (Auto) 0.1 % Neut % (Auto) 62.5 % Lymph % (Auto) 25.4 % Clare % (Auto) 7.6 % Eos % (Auto) 4.0 % Baso % (Auto) 0.4 % Neut # (Auto) 4.53 (1.4-6.5) K/uL Lymph # (Auto) 1.84 (1.2-3.4) K/uL Clare # (Auto) 0.55 (0.11-0.59) K/uL Eos # (Auto) 0.29 (0-0.5) K/uL Baso # (Auto) 0.03 (0-0.2) K/uL Immature Gran # (Auto) 0.01 (0.00-0.02) K/uL PT 11.9 (9.0-12.0) Seconds INR 1.1 (0.9-1.1) APTT 29.1 (21.0-31.0) Seconds PTT Ratio 1.0 D-Dimer 1750 H* (0-500) ug/L FEU VBG pH (7.36-7.41) VBG pCO2 (38-50) mmHg VBG pO2 mmHg VBG HCO3 mmol/L VBG O2 Saturation % VBG Base Excess mEq/L Barometric Pressure mm/Hg Sodium 138 (136-145) mmol/L Potassium 4.1 (3.5-5.1) mmol/L Chloride 108 H (98-107) mmol/L Carbon Dioxide 26 (21-32) mmol/L Anion Gap 4.0 (3-11) BUN 14 (7-18) mg/dl Creatinine 0.88 (0.6-1.2) mg/dl Est Cr Clr Drug Dosing 90.9 ml/min Est GFR ( Amer) 86.3 Est GFR (Non-Af Amer) 74.5 BUN/Creatinine Ratio 15.8 (10-20) Glucose 63 L (70-99) mg/dl Calcium 9.5 (8.5-10.1) mg/dl Magnesium 2.2 (1.8-2.4) mg/dl Total Bilirubin 1.5 H (0.2-1) mg/dl AST 35 (15-37) U/L ALT 27 (12-78) U/L Alkaline Phosphatase 88 (45-117) U/L Troponin I < 0.015 (0-0.045) ng/ml Total Protein 8.2 (6.4-8.2) gm/dl Albumin 3.6 (3.4-5.0) gm/dl Globulin 4.6 H (2.5-4.0) gm/dl Albumin/Globulin Ratio 0.8 L (0.9-2) COVID-19 Eval Order COVID-19 PCR (Negative) Influenza Type A (PCR) (Neg) Influenza Type B (PCR) (Neg) 02/05/20 02/05/20 02/05/20 Range/Units 12:21 12:21 12:21 WBC (4.8-10.8) K/uL RBC (4.2-5.4) M/uL Hgb (12.0-16.0) g/dL Hct (37-47) % MCV (80-100) fL MCH (25-34) pg MCHC (32-36) g/dL RDW Std Deviation (36.4-46.3) fL RDW Coeff of Gregg (11.5-14.5) % Plt Count (130-400) K/uL MPV (7.4-10.4) fL Immature Gran % (Auto) % Neut % (Auto) % Lymph % (Auto) % Clare % (Auto) % Eos % (Auto) % Baso % (Auto) % Neut # (Auto) (1.4-6.5) K/uL Lymph # (Auto) (1.2-3.4) K/uL Clare # (Auto) (0.11-0.59) K/uL Eos # (Auto) (0-0.5) K/uL Baso # (Auto) (0-0.2) K/uL Immature Gran # (Auto) (0.00-0.02) K/uL PT (9.0-12.0) Seconds INR (0.9-1.1) APTT (21.0-31.0) Seconds PTT Ratio D-Dimer (0-500) ug/L FEU VBG pH (7.36-7.41) VBG pCO2 (38-50) mmHg VBG pO2 mmHg VBG HCO3 mmol/L VBG O2 Saturation % VBG Base Excess mEq/L Barometric Pressure mm/Hg Sodium (136-145) mmol/L Potassium (3.5-5.1) mmol/L Chloride (98-107) mmol/L Carbon Dioxide (21-32) mmol/L Anion Gap (3-11) BUN (7-18) mg/dl Creatinine (0.6-1.2) mg/dl Est Cr Clr Drug Dosing ml/min Est GFR ( Amer) Est GFR (Non-Af Amer) BUN/Creatinine Ratio (10-20) Glucose (70-99) mg/dl Calcium (8.5-10.1) mg/dl Magnesium (1.8-2.4) mg/dl Total Bilirubin (0.2-1) mg/dl AST (15-37) U/L ALT (12-78) U/L Alkaline Phosphatase (45-117) U/L Troponin I (0-0.045) ng/ml Total Protein (6.4-8.2) gm/dl Albumin (3.4-5.0) gm/dl Globulin (2.5-4.0) gm/dl Albumin/Globulin Ratio (0.9-2) COVID-19 Eval Order Covid19 Done at [facility] COVID-19 PCR NEGATIVE (Negative) Influenza Type A (PCR) Neg for Influ A (Neg) Influenza Type B (PCR) Neg for Influ B (Neg) 02/05/20 Range/Units 12:24 WBC (4.8-10.8) K/uL RBC (4.2-5.4) M/uL Hgb (12.0-16.0) g/dL Hct (37-47) % MCV (80-100) fL MCH (25-34) pg MCHC (32-36) g/dL RDW Std Deviation (36.4-46.3) fL RDW Coeff of Gregg (11.5-14.5) % Plt Count (130-400) K/uL MPV (7.4-10.4) fL Immature Gran % (Auto) % Neut % (Auto) % Lymph % (Auto) % Clare % (Auto) % Eos % (Auto) % Baso % (Auto) % Neut # (Auto) (1.4-6.5) K/uL Lymph # (Auto) (1.2-3.4) K/uL Clare # (Auto) (0.11-0.59) K/uL Eos # (Auto) (0-0.5) K/uL Baso # (Auto) (0-0.2) K/uL Immature Gran # (Auto) (0.00-0.02) K/uL PT (9.0-12.0) Seconds INR (0.9-1.1) APTT (21.0-31.0) Seconds PTT Ratio D-Dimer (0-500) ug/L FEU VBG pH 7.41 (7.36-7.41) VBG pCO2 41 (38-50) mmHg VBG pO2 40 mmHg VBG HCO3 25 mmol/L VBG O2 Saturation 73.8 % VBG Base Excess 0.8 mEq/L Barometric Pressure 725.0 mm/Hg Sodium (136-145) mmol/L Potassium (3.5-5.1) mmol/L Chloride (98-107) mmol/L Carbon Dioxide (21-32) mmol/L Anion Gap (3-11) BUN (7-18) mg/dl Creatinine (0.6-1.2) mg/dl Est Cr Clr Drug Dosing ml/min Est GFR ( Amer) Est GFR (Non-Af Amer) BUN/Creatinine Ratio (10-20) Glucose (70-99) mg/dl Calcium (8.5-10.1) mg/dl Magnesium (1.8-2.4) mg/dl Total Bilirubin (0.2-1) mg/dl AST (15-37) U/L ALT (12-78) U/L Alkaline Phosphatase (45-117) U/L Troponin I (0-0.045) ng/ml Total Protein (6.4-8.2) gm/dl Albumin (3.4-5.0) gm/dl Globulin (2.5-4.0) gm/dl Albumin/Globulin Ratio (0.9-2) COVID-19 Eval Order COVID-19 PCR (Negative) Influenza Type A (PCR) (Neg) Influenza Type B (PCR) (Neg) Administered Medications Discontinued Medications Acetaminophen (Acetaminophen 500 Mg Tab) Confirm Administered Dose 1,000 mg .ROUTE .STK-MED ONE Stop: 02/05/20 16:42 Last Admin: 02/05/20 16:44 Dose: 1,000 mg Documented by: [id number] Albuterol (Albut/Ipratrop 3mg/0.5mg Neb 3 Ml Vial) 12 ml NEB ONE ONE Stop: 02/05/20 14:43 Last Admin: 02/05/20 14:56 Dose: 12 ml Documented by: [id number] Ioversol (Optiray 320 125ml) 120 ml IV ONCE ONE Stop: 02/05/20 13:47 Last Admin: 02/05/20 13:46 Dose: 120 ml Documented by: [id number] Methylprednisolone (Methylprednisolone 125 Mg/2 Ml Vial) 125 mg IV NOW STA Stop: 02/05/20 14:43 Last Admin: 02/05/20 14:50 Dose: 125 mg Documented by: [id number] Imaging Data Radiologist's Impression: Patient: MAIKOL PETERSON Admit Date: 02/05/20 MR#: [id number] Address1: [address] [place] [address] Acct ID:[id number] Address2: Date: 1965 [facility] Zip: [place] [address] Age: 54 Location: ED Sex: F Room/Bed: Att Phy: Diagnosis: SOB Nely Phy: Rangel Crane DO Service Date: 02/05/20 Fam Phy: Interpreting Phy: Jesús Esquivel MD Admit Phy: Ordering Phy: Marck Waller DO cc: ~ CT ANGIOGRAM OF THE CHEST CLINICAL HISTORY: Chest pain, shortness of breath, cough. Possible pulmonary embolism. COMPARISON STUDY: January 31, 2020 TECHNIQUE: Following the IV administration of 120 mL of Optiray-320, CT angiogram of the thorax was performed from the thoracic inlet to the lung bases utilizing the pulmonary embolus protocol. Images are reviewed in the axial, sagittal, and coronal planes. IV contrast was administered without complication. MIP imaging was performed. A dose lowering technique was utilized adhering to the principles of ALARA. CT DOSE: 559.46 mGycm FINDINGS: Images of the upper abdomen reveal probable splenomegaly with perigastric varices. No pathologically enlarged axillary mediastinal or hilar lymph nodes were visualized. There was no evidence of thoracic aortic dilatation. There were no pulmonary artery filling defects to indicate acute pulmonary embolism. No pleural effusions are visualized. There are mild dependent atelectatic changes. There is no focal pulmonary consolidation. There is a 4 mm calcified left upper lobe granuloma IMPRESSION: 1. No acute intrathoracic findings 2. No evidence of acute pulmonary embolism 3. No evidence of focal parenchymal consolidation ACT 112: Negative or not required by law. Electronically signed by: Jesús Esquivel M.D. 02/05/2020 1:49 PM Dictated: 02/05/20 1344 Transcribed: 02/05/20 1349 Blood Pressure Blood Pressure Findings: Elevated blood pressure Blood Pressure Disposition: further management by hospitalist Discharge Plan Visit Data Chief Complaint: Shortness of Breath/Dyspnea Stated Complaint: SOB ED Provider: Marck Waller Discharge Problem: Asthma exacerbation in COPD, Hypoxia Patient Disposition: Being Evaluated by Hospitalist Condition: Good Forms Stand Alone Forms: My [employer] Prescriptions Prescriptions: No Action Symbicort 160-4.5 mcg/actuation HFA aerosol inhaler 2 puffs INH BID RF: 0 albuterol sulfate [Ventolin HFA] 90 mcg/actuation HFA aerosol inhaler 2 puffs INH Q6H PRN (Reason: Wheezing) RF: 0 Xifaxan 550 mg tablet 550 mg PO BID RF: 0 lactulose 10 gram/15 mL solution 60 ml PO QID RF: 0 Mucinex DM 30-600 mg tablet extended release 12 hr 1 tab PO Q12H PRN (Reason: Cough) RF: 0 ondansetron HCl 4 mg tablet 4 mg PO Q8H PRN (Reason: Nausea) RF: 0 trihexyphenidyl 5 mg tablet 2.5 mg PO DAILY RF: 0 folic acid 1 mg tablet 1 mg PO QAM RF: 0 hydroxyzine HCl 25 mg tablet 25 mg PO BID PRN (Reason: Anxiety) RF: 0 multivitamin [Tab-A-Malinda] Tablet 1 tab PO QAM RF: 0 trazodone 100 mg tablet 100 mg PO HS RF: 0 baclofen 10 mg tablet 10 mg PO TID RF: 0 benzonatate 100 mg capsule 100 mg PO TID PRN (Reason: Cough) RF: 0 polyethylene glycol 3350 [Miralax] 17 gram powder in packet 17 g PO DAILY PRN (Reason: Constipation) RF: 0 tramadol [Ultram] 50 mg tablet 50 mg PO BID PRN (Reason: Pain, Severe) RF: 0 dicyclomine 20 mg tablet 20 mg PO BID RF: 0 furosemide [Lasix] 40 mg tablet 40 mg PO BID RF: 0 ropinirole [Requip] 0.25 mg tablet 0.25 mg PO HS RF: 0 pantoprazole [Protonix] 40 mg tablet,delayed release (DR/EC) 40 mg PO BID RF: 0 fluticasone propionate [Flonase Allergy Relief] 50 mcg/actuation spray,suspension 2 spray Intranasal DAILY PRN (Reason: Allergy Symptoms) RF: 0 ferrous sulfate 325 mg (65 mg iron) tablet,delayed release (DR/EC) 325 mg PO BID RF: 0 losartan [Cozaar] 25 mg tablet 25 mg PO DAILY RF: 0 magnesium oxide 400 mg magnesium tablet 400 mg PO BID RF: 0 montelukast [Singulair] 10 mg tablet 10 mg PO HS RF: 0 potassium chloride [Klor-Con 10] 10 mEq tablet extended release 10 meq PO DAILY RF: 0 thiamine HCl (vitamin B1) [Vitamin B-1] 100 mg tablet 100 mg PO QAM RF: 0 spironolactone [Aldactone] 100 mg tablet 150 mg PO QAM RF: 0 lamotrigine 150 mg tablet 150 mg PO HS RF: 0 sertraline 50 mg tablet 75 mg PO QAM RF: 0 psyllium Packet 1 pkt PO DAILY Qty: 30 RF: 0 Referrals Referrals: Rangel Crane DO [Primary Care Provider] -
[2020-02-05 12:35] LABS: Base Excess VBG 0.8 mEq/L; Oxygen Saturation VBG 73.8 %; pH VBG 7.41 (7.36-7.41)
[2020-02-05 12:38] LABS: Basophils # (auto) 0.03 K/uL (0-0.2); Basophils % (auto) 0.4 %; Eosinophils # (auto) 0.29 K/uL (0-0.5); Hematocrit (blood only) 40.8 % (37-47); Immature Granulocytes # (auto) 0.01 K/uL (0.00-0.02); Immature Granulocytes % (auto) 0.1 %; Lymphocytes # (auto) 1.84 K/uL (1.2-3.4); Lymphocytes % (auto) 25.4 %; Mean Corpuscular Hemoglobin 32.3 pg (25-34); Mean Corpuscular Hgb Conc 34.3 g/dL (32-36); Mean Platelet Volume 9.7 fL (7.4-10.4); Monocytes # (auto) 0.55 K/uL (0.11-0.59); Monocytes % (auto) 7.6 %; Neutrophils # (auto) 4.53 K/uL (1.4-6.5); Neutrophils % (auto) 62.5 %; Platelet Count 152 K/uL (130-400); RDW Coefficient of Variation 13.6 % (11.5-14.5); RDW Standard Deviation 47.4 fL (36.4-46.3); Red Blood Count 4.34 M/uL (4.2-5.4); White Blood Count 7.25 K/uL (4.8-10.8)
[2020-02-05 12:50] LABS: INR 1.1 (0.9-1.1); Partial Thromboplastin Time 29.1 Seconds (21.0-31.0); Prothrombin Time 11.9 Seconds (9.0-12.0)
[2020-02-05 12:55] LABS: D Dimer 1750 ug/L FEU (0-500)
[2020-02-05 12:57] LABS: Alanine Aminotransferase 27 U/L (12-78); Albumin Level 3.6 gm/dl (3.4-5.0); Aspartate Aminotransferase 35 U/L (15-37); BUN Creatinine Ratio 15.8 (10-20); Blood Urea Nitrogen 14 mg/dl (7-18); Calcium 9.5 mg/dl (8.5-10.1); Carbon Dioxide 26 mmol/L (21-32); Chloride 108 mmol/L (98-107); Creatinine Clr Calc Pharmacy 90.9 ml/min; Est GFR (African American) 86.3; Est GFR (Non-African American) 74.5; Glucose 63 mg/dl (70-99); Magnesium 2.2 mg/dl (1.8-2.4); Potassium 4.1 mmol/L (3.5-5.1); Sodium 138 mmol/L (136-145)
[2020-02-05 13:02] LABS: Albumin Globulin Ratio 0.8 (0.9-2); Alkaline Phosphatase 88 U/L (45-117); Bilirubin,Total 1.5 mg/dl (0.2-1); Globulin 4.6 gm/dl (2.5-4.0); Total Protein 8.2 gm/dl (6.4-8.2); Troponin I < 0.015 ng/ml (0-0.045)
[2020-02-05 13:36] LABS: Influenza A virus by PCR Neg for Influ A (Neg); Influenza B virus by PCR Neg for Influ B (Neg)
[2020-02-05] MEDS ORDERED: OPTIRAY 320 125ml IV ONE (13:46)
--- NOTE | 2020-02-05 13:50 | CT Scan Report ---
CT ANGIOGRAM OF THE CHEST CLINICAL HISTORY: Chest pain, shortness of breath, cough. Possible pulmonary embolism. COMPARISON STUDY: January 31, 2020 TECHNIQUE: Following the IV administration of 120 mL of Optiray-320, CT angiogram of the thorax was p erformed from the thoracic inlet to the lung bases utilizing the pulmonary embolus protocol. Images a re reviewed in the axial, sagittal, and coronal planes. IV contrast was administered without complica tion. MIP imaging was performed. A dose lowering technique was utilized adhering to the principles o f ALARA. CT DOSE: 559.46 mGycm FINDINGS: Images of the upper abdomen reveal probable splenomegaly with perigastric varices. No pathologically enlarged axillary mediastinal or hilar lymph nodes were visualized. There was no evidence of thoracic aortic dilatation. There were no pulmonary artery filling defects to indicate acute pulmonary embolism. No pleural effusions are visualized. There are mild dependent atelectatic changes. There is no focal pulmonary consolidation. There is a 4 mm calcified left upper lobe granuloma IMPRESSION: 1. No acute intrathoracic findings 2. No evidence of acute pulmonary embolism 3. No evidence of focal parenchymal consolidation ACT 112: Negative or not required by law. Electronically signed by: Jesús Esquivel M.D. 02/05/2020 1:49 PM
[2020-02-05] MEDS ORDERED: methylPREDNISolone 125 MG/2 ML VIAL IV STA (14:42)
[2020-02-05] MEDS ORDERED: ALBUT/IPRATROP 3MG/0.5MG NEB 3 ML VIAL NEB ONE (14:42)
--- NOTE | 2020-02-05 14:43 | Electrocardiogram Report ---
Test Reason : Blood Pressure : / mmHG Vent. Rate : 077 BPM Atrial Rate : 077 BPM P-R Int : 146 ms QRS Dur : 108 ms QT Int : 400 ms P-R-T Axes : 035 018 063 degrees QTc Int : 452 ms Normal sinus rhythm Normal ECG When compared with ECG of 13-NOV-2019 11:24, No significant change was found Confirmed by Luis M Martinez ([id number]) on 02/05/2020 2:43:16 PM Referred By: Confirmed By:Jose Martinez
--- NOTE | 2020-02-05 16:09 | History & Physical Report ---
Date of Service February 05, 2020 Assessment & Plan (1) COPD exacerbation: Increasing shortness of breath for last 2 days with the wheezing and chest tightness Requiring more oxygen at home to maintain saturation to 5 L from normal of 2 L/min via nasal cannula No evidence of any infection and no evidence of pulmonary embolism on CTA Received 125 mg of IV Solu-Medrol in ER We will give Solu-Medrol 40 mg IV every 8 hourly and continue with nebulized bronchodilators No need to give any antibiotic at this time without any signs or symptoms of infection (2) Hypoxia: Noted to be hypoxic at presentation Saturation is maintained with 5 L of nasal oxygen now (3) Chronic diastolic CHF (congestive heart failure): No evidence of fluid overload We will continue current dose of diuretics (4) HTN (hypertension): Blood pressure seems to be upper side of normal We will follow (5) Alcoholic cirrhosis: No evidence of any confusion and/or ascites or increasing edema Continue rifaximin and lactulose (6) Sleep apnea: Not sure if she has been using CPAP and/or BiPAP (7) Bipolar 1 disorder: Continue antidepressant VT prophylaxis Subcu heparin Status Full History of Present Illness Chief Complaint: Increasing shortness of breath with wheezing for the last 2 days Primary Care Provider: Rangel Crane Is a 54-year-old obese female with significant past medical history of COPD on 2 L home O2, alcoholic cirrhosis, hypertension, chronic diastolic CHF, sleep apnea and history of bipolar disorder has been complaining of increasing shortness of breath with chest tightness and wheezing for the last 2 days. She has cough without any phlegm. Denies any fever and/or chills. No chest pain and/or palpitation. She has been smoking for the last 1 month or so since she has been on oxygen. Denies any abdominal pain nausea and or vomiting and no increase in swelling of the legs. She was noted to have very low O2 saturation in the emergency room but his CT scan of the chest did not show any infiltration and/or pulmonary embolism. Her other labs were unremarkable including EKG and cardiac troponin. She was admitted to [facility] telemetry unit for continuation of care. Allergies Allergy/AdvReac Type Severity Reaction Status Date / Time strawberry Allergy Severe HIVES Verified 02/05/20 14:35 bee venom protein (honey bee) Allergy Unknown HIVES AND Verified 02/05/20 14:35 SWELLING pollen extracts Allergy Unknown UNKNOWN Verified 02/05/20 14:35 No Known Drug Allergies Allergy Verified 02/05/20 14:35 Freedom Tar Allergy Mild Unknown Uncoded 02/05/20 14:35 Home Medications Home Medications Medication Instructions Recorded Confirmed Type fluticasone propionate [Flonase 2 spray INTRANASAL DAILY PRN 02/22/18 02/05/20 History Allergy Relief] furosemide [Lasix] 40 mg PO BID 02/22/18 02/05/20 History pantoprazole [Protonix] 40 mg PO BID 02/22/18 02/05/20 History ropinirole [Requip] 0.25 mg PO HS 02/22/18 02/05/20 History albuterol sulfate 90 mcg/actuation 2 puffs INH Q6H PRN 11/28/18 02/05/20 History aerosol inhaler budesonide-formoterol HFA 160 2 puffs INH BID 11/28/18 02/05/20 History mcg-4.5 mcg/actuation aerosol inhaler ferrous sulfate 325 mg (65 mg 325 mg PO BID 11/28/18 02/05/20 History iron) tablet,delayed release folic acid 1 mg tablet 1 mg PO QAM tab 11/28/18 02/05/20 History losartan 25 mg tablet 25 mg PO DAILY tab 11/28/18 02/05/20 History magnesium oxide 400 mg PO BID 11/28/18 02/05/20 History montelukast 10 mg tablet 10 mg PO HS tab 11/28/18 02/05/20 History potassium chloride 10 mEq 10 meq PO DAILY tab 11/28/18 02/05/20 History tablet,extended release rifaximin 550 mg tablet 550 mg PO BID 11/28/18 02/05/20 History thiamine HCl (vitamin B1) 100 mg 100 mg PO QAM tab 11/28/18 02/05/20 History tablet dextromethorphan-guaifenesin 30 1 tab PO Q12H PRN 12/13/18 02/05/20 History mg-600 mg tablet extended [id number] hr lactulose 10 gram/15 mL oral 60 ml PO QID ml 12/13/18 02/05/20 History solution ondansetron HCl 4 mg tablet 4 mg PO Q8H PRN 12/13/18 02/05/20 History trihexyphenidyl 5 mg tablet 2.5 mg PO DAILY 12/13/18 11/13/19 History spironolactone 100 mg tablet 150 mg PO QAM tab 01/25/19 02/05/20 History hydroxyzine HCl 25 mg PO BID PRN 04/27/19 02/05/20 History lamotrigine 150 mg PO HS 11/13/19 02/05/20 History sertraline 75 mg PO QAM 11/13/19 02/05/20 History psyllium 1 pkt PO DAILY #30 ea 11/16/19 Rx baclofen 10 mg PO TID 02/05/20 02/05/20 History benzonatate 100 mg PO TID PRN 02/05/20 02/05/20 History dicyclomine 20 mg PO BID 02/05/20 02/05/20 History multivitamin [Tab-A-Malinda] 1 tab PO QAM 02/05/20 02/05/20 History polyethylene glycol 3350 [Miralax] 17 g PO DAILY PRN 02/05/20 02/05/20 History tramadol [Ultram] 50 mg PO BID PRN 02/05/20 02/05/20 History trazodone 100 mg PO HS 02/05/20 02/05/20 History Past Med/Surg History Medical History Alcoholic cirrhosis Anemia, chronic disease Anxiety Asthma Bipolar 1 disorder Chronic diastolic CHF (congestive heart failure) COPD (chronic obstructive pulmonary disease) H/O alcohol abuse HTN, goal below 140/90 Hx of migraines MELVI (obstructive sleep apnea) Sleep apnea Tobacco use disorder Surgical History History of spinal fusion History of total right knee replacement S/P cholecystectomy S/P tubal ligation Family History Sister Diabetes Social History Smoking Status: Current every day smoker Cigarettes Per Day: 10; Second Hand Exposure: No; Hx Alcohol Use: Yes (Quit 2017) Hx Substance Use: No Preferred Language: Hungarian Communication Ability: Effective 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 Beliefs That Will Affect Care: None marital status: Current Living Situation: Alone How many Children do You have: 4 Feels Safe at Home: Yes Assistive Devices: Oxygen - Continuous Review of Systems Review of Systems: All systems reviewed & are unremarkable except as noted in HPI & below Respiratory: + cough, + dyspnea and + wheezing Physical Exam Physical Exam: Lying in bed comfortably Constitutional: well developed, well nourished, + acute distress (Minimal shortness of breath at rest) and + obese; not ill appearing Eyes: PERRL, conjunctivae normal, anicteric sclerae ENMT: external ear and nose normal, oropharynx normal Neck: trachea midline, no thyromegaly Respiratory: normal respiratory effort and + respiratory distress (Minimal distress at rest) Auscultation: + diminished lung sounds and + crackles (Minimal bibasilar crackles); no wheezes Cardiovascular: Rate/Rhythm: regular rate and regular rhythm Heart Sounds: no murmur Extremities: + edema Gastrointestinal (Abdomen): Inspection/Auscultation: abdomen normal to inspection, + abdomen distended and normal bowel sounds Percussion/Palpation: abdomen soft; abdomen nontender Musculoskeletal: No acute arthritis involving any joints Neurologic: moves all extremities; no focal motor deficits Alert, awake and oriented x3 Psychiatric: A+Ox3, euthymic affect Lymphatic: no cervical or axillary lymphadenopathy Results & Data Results & Data ([facility]) Vital Signs (Past 12 Hours) Vital Signs Temp Pulse Pulse Resp BP BP Pulse Ox 02/05/20 14:56 70 17 97 02/05/20 14:00 74 26 H 152/62 H 94 02/05/20 12:34 70 16 139/62 96 02/05/20 11:26 37.2 C 80 30 H 126/67 79 L Laboratory Results Short CBC 02/05/20 Range/Units 12:20 WBC 7.25 (4.8-10.8) K/uL Hgb 14.0 (12.0-16.0) g/dL Hct 40.8 (37-47) % Plt Count 152 (130-400) K/uL BMP 02/05/20 12:20 Sodium 138 Potassium 4.1 Chloride 108 H Carbon Dioxide 26 BUN 14 Creatinine 0.88 Glucose 63 L Calcium 9.5 Cardiac Enzymes 02/05/20 Range/Units 12:20 Troponin I < 0.015 (0-0.045) ng/ml Liver Function 02/05/20 Range/Units 12:20 Total Bilirubin 1.5 H (0.2-1) mg/dl AST 35 (15-37) U/L ALT 27 (12-78) U/L Alkaline Phosphatase 88 (45-117) U/L Albumin 3.6 (3.4-5.0) gm/dl Diagnostic Findings CTA;IMPRESSION: 1. No acute intrathoracic findings 2. No evidence of acute pulmonary embolism 3. No evidence of focal parenchymal consolidation
[2020-02-05] MEDS ORDERED: ACETAMINOPHEN 500 MG TAB ONE (16:41)
[2020-02-05] MEDS ORDERED: ALBUTEROL HFA 8 GM INHALER INH PRN (19:07)
[2020-02-05] MEDS ORDERED: BENZONATATE 100 MG CAPSULE PO PRN (19:07)
[2020-02-05] MEDS ORDERED: FLUTICASONE PROPIONATE NA SPR 16 GM BTL PRN (19:07)
[2020-02-05] MEDS ORDERED: POLYETHYLENE (MIRALAX) 17 GM PACK PO PRN (19:07)
[2020-02-05] MEDS: LOSARTAN POTASSIUM 25 MG TAB PO SCH (20:32)
[2020-02-05] MEDS: BACLOFEN 10 MG TAB PO SCH (20:32)
[2020-02-05] MEDS: rifAXIMin 550 MG TABLET PO SCH (20:32)
[2020-02-05] MEDS: MONTELUKAST SODIUM 10 MG TABLET PO SCH (20:32)
[2020-02-05] MEDS: FERROUS SULFATE 325 MG TAB PO SCH (20:32)
[2020-02-05] MEDS: MAGNESIUM OXIDE 400 MG TAB PO SCH (20:32)
[2020-02-05] MEDS: traZODone HCL 100 MG TAB PO SCH (20:32)
[2020-02-05] MEDS: rOPINIRole HCL 0.25 MG TABLET PO SCH (20:32)
[2020-02-05] MEDS: PANTOprazole 40 MG TAB PO SCH (20:33)
[2020-02-05] MEDS: LACTULOSE SYRUP 20 GM/30 ML UDC PO SCH (20:33)
[2020-02-05] MEDS: lamoTRIgine 100 MG TAB PO SCH (20:33)
[2020-02-05] MEDS: DICYCLOMINE HCL 20 MG TAB PO SCH (20:33)
[2020-02-05] MEDS: FUROSEMIDE 40 MG TAB PO SCH (20:33)
[2020-02-05] MEDS: ACETAMINOPHEN 500 MG TAB PO SCH (22:05)
[2020-02-05] MEDS: methylPREDNISolone 40 MG in SYRINGE 0 ML IV SCH (22:05)
[2020-02-06] MEDS: methylPREDNISolone 40 MG in SYRINGE 0 ML IV SCH (05:45)
[2020-02-06] MEDS: ACETAMINOPHEN 500 MG TAB PO SCH ×3 (05:45→22:15)
[2020-02-06 07:37] LABS: Hemoglobin 12.9 g/dL (12.0-16.0); Immature Granulocytes # (auto) 0.01 K/uL (0.00-0.02); Immature Granulocytes % (auto) 0.2 %; Lymphocytes # (auto) 0.58 K/uL (1.2-3.4); Lymphocytes % (auto) 9.3 %; Mean Corpuscular Hemoglobin 30.9 pg (25-34); Mean Corpuscular Hgb Conc 33.1 g/dL (32-36); Mean Corpuscular Volume 93.3 fL (80-100); Mean Platelet Volume 9.8 fL (7.4-10.4); Monocytes # (auto) 0.12 K/uL (0.11-0.59); Monocytes % (auto) 1.9 %; Neutrophils # (auto) 5.56 K/uL (1.4-6.5); Neutrophils % (auto) 88.6 %; Platelet Count 146 K/uL (130-400); RDW Coefficient of Variation 13.7 % (11.5-14.5); RDW Standard Deviation 46.7 fL (36.4-46.3); Red Blood Count 4.18 M/uL (4.2-5.4); White Blood Count 6.27 K/uL (4.8-10.8)
[2020-02-06] MEDS: LACTULOSE SYRUP 20 GM/30 ML UDC PO SCH ×4 (07:39→20:02)
[2020-02-06] MEDS: FLUTICASONE/VILANTEROL 200/25MCG 14 PUFFS/INHALER INH SCH (07:39)
[2020-02-06] MEDS: PSYLLIUM 58.6% POWDER PACKET PO SCH (07:39)
[2020-02-06] MEDS: LOSARTAN POTASSIUM 25 MG TAB PO SCH (07:40)
[2020-02-06] MEDS: FUROSEMIDE 40 MG TAB PO SCH ×2 (07:40→16:50)
[2020-02-06] MEDS: MULTIVITAMIN TAB PO SCH (07:40)
[2020-02-06] MEDS: THIAMINE HCL 100 MG TAB PO SCH (07:40)
[2020-02-06] MEDS: PANTOprazole 40 MG TAB PO SCH ×2 (07:40→20:02)
[2020-02-06] MEDS: POTASSIUM CHLORIDE 10 MEQ TABCR PO SCH (07:40)
[2020-02-06] MEDS: FOLIC ACID 1 MG TAB PO SCH (07:43)
[2020-02-06] MEDS: SERTRALINE HCL 50 MG TABLET PO SCH (07:44)
[2020-02-06] MEDS: TRIHEXYPHENIDYL HCL 5 MG TAB PO SCH (07:44)
[2020-02-06] MEDS: SPIRONOLACTONE 100 MG TAB PO SCH (07:44)
[2020-02-06 08:16] LABS: BUN Creatinine Ratio 19.1 (10-20); Calcium 9.5 mg/dl (8.5-10.1); Creatinine Clr Calc Pharmacy 95.5 ml/min; Est GFR (African American) 91.3; Est GFR (Non-African American) 78.8; Magnesium 2.3 mg/dl (1.8-2.4); Phosphorus 2.8 mg/dl (2.5-4.9); Potassium 4.5 mmol/L (3.5-5.1)
[2020-02-06] MEDS: FERROUS SULFATE 325 MG TAB PO SCH ×2 (08:16→20:02)
[2020-02-06] MEDS: rifAXIMin 550 MG TABLET PO SCH ×2 (08:16→20:02)
[2020-02-06] MEDS: BACLOFEN 10 MG TAB PO SCH ×3 (08:16→20:02)
[2020-02-06] MEDS: traMADol HCL 50 MG TABLET PO PRN ×2 (08:16→16:48)
[2020-02-06] MEDS: DICYCLOMINE HCL 20 MG TAB PO SCH ×2 (08:16→20:02)
[2020-02-06] MEDS: MAGNESIUM OXIDE 400 MG TAB PO SCH ×2 (08:16→20:02)
[2020-02-06] MEDS ORDERED: XOPENEX/ATROVENT 1.25mg/0.5MG NEB COMBO NEB SCH (08:45)
[2020-02-06] MEDS: IPRATROPIUM BROMIDE NEB SOLN 0.02% 2.5 ML VIAL INH SCH ×3 (09:01→20:15)
[2020-02-06] MEDS: LEVALBUTEROL 1.25MG/0.5ML NEB INH SCH ×3 (09:01→20:15)
--- NOTE | 2020-02-06 12:03 | Hospitalist Progress Note ---
Date of Service February 06, 2020 Assessment & Plan (1) COPD exacerbation: Acute on chronic hypoxic respiratory failure secondary to CAP exacerbation, acute bronchitis Primary service notes: Increasing shortness of breath for last 2 days with the wheezing and chest tightness Requiring more oxygen at home to maintain saturation to 5 L from normal of 2 L/min via nasal cannula CT chest: No pulmonary embolism, no pneumonia COVID screen: Negative Improving gradually Sputum culture ordered, start doxycycline p.o. Transition from IV Solu-Medrol to p.o. prednisone tomorrow Continue nebs every 6 hours Needs humidifier for home oxygen (2) Chronic diastolic CHF (congestive heart failure): Signs of overt volume overload Continue Lasix Headache Likely secondary to underlying illness, Solu-Medrol? CT head: No acute process PRN tramadol ordered (3) HTN (hypertension): Stable today Continue to monitor (4) Alcoholic cirrhosis: Compensated Continue rifaximin and lactulose (5) Sleep apnea: Suspected Still has to undergo sleep study as an outpatient (6) Bipolar 1 disorder: Continue antidepressant VT prophylaxis Subcu heparin Status Full Disposition Lives with family at home PT OT evaluation Plan of care discussed with patient and her in detail and at length All questions were answered They are understanding, agreeable, comfortable with the plan of care Admission and Anticipated Discharge Date Admission Date: February 05, 2020 Subjective Follow-up for acute on chronic hypoxic respiratory failure, COPD exacerbation, acute bronchitis Seen with patient's at the bedside Not in distress, somewhat weak, states breathing is improved compared to yesterday Now having productive cough, yellow sputum No chest pain, palpitation, dizziness Patient reports frontal headache, sharp, moderate to severe starting this morning No focal neurologic symptoms No other symptoms Review of Systems Review of Systems: All systems reviewed & are unremarkable except as noted in Subjective Physical Exam Physical Exam: General- oriented x 3, not in distress, speaks in sentences with no effort or accessory muscle use Head- atraumatic Eyes- PERRL, EOMI, anicteric ENT- oropharynx clear Neck- supple, no JVD, no adenopathy, no thyromegaly; carotids +2/2, no bruits appreciated Lungs-diminished but positive clear breath sounds bilaterally Heart- normal rate, regular rhythm; no murmur, no gallop, no rub appreciated Abdomen- normal bowel sounds, nondistended, soft, nontender, no masses or hepatosplenomegaly Extremities- no pretibial edema, no calf tenderness; peripheral pulses intact Neuro- alert, oriented x 3; CN 2-12 grossly intact; motor 5/5 bilaterally;sensation 100% on all extremities; no other gross focal neurologic deficits Skin- warm & dry Results & Data Results & Data ([facility]) Vital Signs (Past 12 Hours) Vital Signs Temp Pulse Resp BP Pulse Ox 02/06/20 11:22 38.0 C H 88 18 137/66 94 02/06/20 09:04 85 18 95 02/06/20 07:58 36.7 C 69 18 124/66 94 02/06/20 03:02 37.0 C 75 20 113/52 L 97 Laboratory Results Laboratory Results - last 24 hr 02/06/20 02/06/20 02/06/20 07:11 07:11 07:11 WBC 6.27 RBC 4.18 L Hgb 12.9 Hct 39.0 MCV 93.3 MCH 30.9 MCHC 33.1 RDW Std Deviation 46.7 H RDW Coeff of Gregg 13.7 Plt Count 146 MPV 9.8 Immature Gran % (Auto) 0.2 Neut % (Auto) 88.6 Lymph % (Auto) 9.3 [place] % (Auto) 1.9 Eos % (Auto) 0.0 Baso % (Auto) 0.0 Neut # (Auto) 5.56 Lymph # (Auto) 0.58 L [place] # (Auto) 0.12 Eos # (Auto) 0.00 Baso # (Auto) 0.00 Immature Gran # (Auto) 0.01 Sodium 136 Potassium 4.5 Chloride 106 Carbon Dioxide 24 Anion Gap 6.0 BUN 16 Creatinine 0.84 Est Cr Clr Drug Dosing 95.5 Est GFR ( Amer) 91.3 Est GFR (Non-Af Amer) 78.8 BUN/Creatinine Ratio 19.1 Glucose 139 H POC Glucose Calcium 9.5 Phosphorus 2.8 Magnesium 2.3 NT-Pro-B Natriuret Pep 64 Specimen Hemolysis 02/06/20 02/06/20 08:05 12:07 WBC RBC Hgb Hct MCV MCH MCHC RDW Std Deviation RDW Coeff of Gregg Plt Count MPV Immature Gran % (Auto) Neut % (Auto) Lymph % (Auto) [place] % (Auto) Eos % (Auto) Baso % (Auto) Neut # (Auto) Lymph # (Auto) [place] # (Auto) Eos # (Auto) Baso # (Auto) Immature Gran # (Auto) Sodium Potassium Chloride Carbon Dioxide Anion Gap BUN Creatinine Est Cr Clr Drug Dosing Est GFR ( Amer) Est GFR (Non-Af Amer) BUN/Creatinine Ratio Glucose POC Glucose 130 H 164 H Calcium Phosphorus Magnesium NT-Pro-B Natriuret Pep Specimen Hemolysis
--- NOTE | 2020-02-06 12:37 | CT Scan Report ---
CT head/brain wo con CLINICAL HISTORY: headache, r/o bleed COMPARISON STUDY: 09/06/2018 TECHNIQUE: Axial CT of the brain is performed from the vertex to the skull base. IV contrast was not administered for this examination. A dose lowering technique was utilized adhering to the principles of ALARA. CT DOSE: 729.78 mGycm FINDINGS: No intra or extra-axial mass lesions are visualized. There is no CT evidence of acute cortical infarc tion. There is no evidence of midline shift. There is no acute hemorrhage. No calvarial fractures ar e visualized. There is no evidence of pathologic ventricular dilatation. There is no evidence of acute sinusitis IMPRESSION: No acute intracranial findings ACT 112: Negative or not required by law. Electronically signed by: Jesús Esquivel M.D. 02/06/2020 12:36 PM
[2020-02-06] MEDS: DOXYCYCLINE HYCLATE 100 MG CAP PO SCH ×2 (12:54→22:14)
[2020-02-06] MEDS: MONTELUKAST SODIUM 10 MG TABLET PO SCH (20:01)
[2020-02-06] MEDS: rOPINIRole HCL 0.25 MG TABLET PO SCH (20:01)
[2020-02-06] MEDS: lamoTRIgine 100 MG TAB PO SCH (20:01)
[2020-02-06] MEDS: traZODone HCL 100 MG TAB PO SCH (20:02)
[2020-02-07] MEDS: LEVALBUTEROL 1.25MG/0.5ML NEB INH SCH ×4 (00:16→19:44)
[2020-02-07] MEDS: IPRATROPIUM BROMIDE NEB SOLN 0.02% 2.5 ML VIAL INH SCH ×4 (00:16→19:44)
[2020-02-07] MEDS: DOXYCYCLINE HYCLATE 100 MG CAP PO SCH ×2 (05:39→18:03)
[2020-02-07] MEDS: ACETAMINOPHEN 500 MG TAB PO SCH ×3 (05:39→21:31)
[2020-02-07] MEDS: FLUTICASONE/VILANTEROL 200/25MCG 14 PUFFS/INHALER INH SCH (09:38)
[2020-02-07] MEDS ORDERED: XOPENEX/ATROVENT 1.25mg/0.5MG NEB COMBO NEB STA (09:43)
[2020-02-07] MEDS ORDERED: LEVALBUTEROL 1.25MG/0.5ML NEB INH ONE (09:45)
[2020-02-07] MEDS: traMADol HCL 50 MG TABLET PO PRN ×3 (09:45→20:06)
[2020-02-07] MEDS ORDERED: IPRATROPIUM BROMIDE NEB SOLN 0.02% 2.5 ML VIAL INH ONE (09:45)
[2020-02-07] MEDS: PSYLLIUM 58.6% POWDER PACKET PO SCH (09:48)
[2020-02-07] MEDS: SPIRONOLACTONE 100 MG TAB PO SCH (09:50)
[2020-02-07] MEDS: LACTULOSE SYRUP 20 GM/30 ML UDC PO SCH ×4 (09:51→20:07)
[2020-02-07] MEDS: DICYCLOMINE HCL 20 MG TAB PO SCH ×2 (09:51→20:06)
[2020-02-07] MEDS: FERROUS SULFATE 325 MG TAB PO SCH ×2 (09:52→20:07)
[2020-02-07] MEDS: MULTIVITAMIN TAB PO SCH (09:52)
[2020-02-07] MEDS: MAGNESIUM OXIDE 400 MG TAB PO SCH ×2 (09:52→20:07)
[2020-02-07] MEDS: LOSARTAN POTASSIUM 25 MG TAB PO SCH (09:52)
[2020-02-07] MEDS: PANTOprazole 40 MG TAB PO SCH ×2 (09:52→20:07)
[2020-02-07] MEDS: FUROSEMIDE 40 MG TAB PO SCH ×2 (09:52→16:12)
[2020-02-07] MEDS: POTASSIUM CHLORIDE 10 MEQ TABCR PO SCH (09:52)
[2020-02-07] MEDS: predniSONE 20 MG TAB PO SCH (09:52)
[2020-02-07] MEDS: FOLIC ACID 1 MG TAB PO SCH (09:52)
[2020-02-07] MEDS: TRIHEXYPHENIDYL HCL 5 MG TAB PO SCH (09:52)
[2020-02-07] MEDS: BACLOFEN 10 MG TAB PO SCH ×3 (09:52→20:07)
[2020-02-07] MEDS: SERTRALINE HCL 50 MG TABLET PO SCH (09:53)
[2020-02-07] MEDS: THIAMINE HCL 100 MG TAB PO SCH (09:53)
[2020-02-07] MEDS: rifAXIMin 550 MG TABLET PO SCH ×2 (09:53→20:07)
[2020-02-07] MEDS ORDERED: BENZONATATE 100 MG CAPSULE PO ONE (10:13)
[2020-02-07] MEDS ORDERED: traMADol HCL 50 MG TABLET PO PRN (10:13)
[2020-02-07] MEDS ORDERED: traMADol HCL 50 MG TABLET PO STA (10:13)
--- NOTE | 2020-02-07 10:17 | Hospitalist Progress Note ---
Date of Service Delayed entry Date of service noted below February 07, 2020 Assessment & Plan (1) COPD exacerbation: Acute on chronic hypoxic respiratory failure secondary to CAP exacerbation, acute bronchitis Primary service notes: Increasing shortness of breath for last 2 days with the wheezing and chest tightness Requiring more oxygen at home to maintain saturation to 5 L from normal of 2 L/min via nasal cannula CT chest: No pulmonary embolism, no pneumonia COVID screen: Negative Gradually improving Sputum culture: Pending Continue prednisone taper, doxycycline, nebs every 6 hours Add Tessalon Perles for cough, tramadol as needed Needs humidifier for home oxygen Chest discomfort Likely secondary to costochondritis secondary to coughing Tessalon Perles 3 times daily PRN tramadol EKG no signs of acute ischemia or infarct Troponins negative (2) Chronic diastolic CHF (congestive heart failure): No signs of overt volume overload Continue Lasix Headache Likely secondary to underlying illness, Solu-Medrol? CT head: No acute process PRN tramadol ordered (3) HTN (hypertension): Stable today Continue to monitor (4) Alcoholic cirrhosis: Compensated Continue rifaximin and lactulose (5) Sleep apnea: Suspected Still has to undergo sleep study as an outpatient (6) Bipolar 1 disorder: Continue antidepressant VT prophylaxis Subcu heparin Status Full Disposition Lives with family at home PT OT evaluation Plan of care discussed with patient in detail and at length All questions were answered She is understanding, agreeable, comfortable with the plan of care Admission and Anticipated Discharge Date Admission Date: February 05, 2020 Subjective Follow-up for severe exacerbation, acute bronchitis Was reporting chest heaviness, tightness to RN this morning EKG no signs of acute ischemia or infarct On exam, patient was seen watching a movie in her tablet, comfortable, not in distress Reports frequent coughing, chest comfort worsens with coughing No other symptoms Review of Systems Review of Systems: All systems reviewed & are unremarkable except as noted in Subjective Physical Exam Physical Exam: General- oriented x 3, not in distress, speaks in sentences with no effort or accessory muscle use Eyes- anicteric Neck- no JVD Lungs-good air entry bilaterally, clear breath sounds bilaterally, no rales/wheezes Heart- normal rate, regular rhythm; no murmurs Abdomen- normal bowel sounds, nondistended, soft, nontender Extremities- no pretibial edema, no calf tenderness Neuro- alert, oriented x 3; no gross focal neurologic deficits Skin- warm & dry Results & Data Results & Data ([facility]) Vital Signs (Past 12 Hours) Vital Signs Temp Pulse Pulse Resp BP BP Pulse Ox 02/07/20 09:33 37.3 C 02/07/20 07:25 37.2 C 74 20 101/55 L 93 02/07/20 07:24 71 18 97 02/07/20 03:03 37.1 C 74 18 120/64 94 02/07/20 00:16 75 18 93 02/07/20 00:00 83 02/06/20 23:56 37.2 C 84 18 125/65 94 Laboratory Results Laboratory Results - last 24 hr 02/07/20 02/07/20 02/07/20 10:38 15:47 21:22 Troponin I < 0.015 < 0.015 Pending
--- NOTE | 2020-02-07 12:14 | Ultrasound Report ---
BILATERAL LOWER EXTREMITY VENOUS DOPPLER CLINICAL HISTORY: elevated D dimer, r/o DVT COMPARISON STUDY: Left lower extremity venous Doppler ultrasound February 15, 2017. Right lower extre mity venous Doppler ultrasound February 02, 2017. TECHNIQUE: Sonography of the deep venous system of the bilateral lower extremities was performed. Co mpression and augmentation were evaluated. FINDINGS: The bilateral common femoral, superficial femoral and popliteal veins were compressible. A ugmentation was normal. Flow was shown within the deep calf vessels. IMPRESSION: No evidence of deep venous thrombus within the bilateral lower extremities. ACT 112: Negative or not required by law. Electronically signed by: Len Mayfield M.D. 02/07/2020 12:13 PM
--- NOTE | 2020-02-07 12:47 | Electrocardiogram Report ---
Test Reason : Blood Pressure : / mmHG Vent. Rate : 082 BPM Atrial Rate : 082 BPM P-R Int : 144 ms QRS Dur : 108 ms QT Int : 388 ms P-R-T Axes : 046 021 071 degrees QTc Int : 453 ms Normal sinus rhythm Normal ECG When compared with ECG of 05-FEB-2020 11:36, No significant change was found Confirmed by Luis M Martinez ([id number]) on 02/07/2020 12:47:24 PM Referred By: REFERRED SELF Confirmed By:Jose Martinez
[2020-02-07] MEDS: BENZONATATE 100 MG CAPSULE PO SCH ×2 (14:00→20:07)
[2020-02-07] MEDS: ONDANSETRON 4 MG OD TAB PO PRN ×2 (14:00)
[2020-02-07] MEDS: rOPINIRole HCL 0.25 MG TABLET PO SCH (20:07)
[2020-02-07] MEDS: traZODone HCL 100 MG TAB PO SCH (20:07)
[2020-02-07] MEDS: lamoTRIgine 100 MG TAB PO SCH (20:07)
[2020-02-07] MEDS: MONTELUKAST SODIUM 10 MG TABLET PO SCH (20:07)
[2020-02-08] MEDS: IPRATROPIUM BROMIDE NEB SOLN 0.02% 2.5 ML VIAL INH SCH ×4 (01:24→19:30)
[2020-02-08] MEDS: LEVALBUTEROL 1.25MG/0.5ML NEB INH SCH ×4 (01:24→19:30)
[2020-02-08] MEDS: DOXYCYCLINE HYCLATE 100 MG CAP PO SCH ×2 (05:42→18:12)
[2020-02-08] MEDS: ACETAMINOPHEN 500 MG TAB PO SCH ×3 (05:42→20:23)
[2020-02-08] MEDS: SPIRONOLACTONE 100 MG TAB PO SCH (08:20)
[2020-02-08] MEDS: SERTRALINE HCL 50 MG TABLET PO SCH (08:21)
[2020-02-08] MEDS: TRIHEXYPHENIDYL HCL 5 MG TAB PO SCH (08:22)
[2020-02-08] MEDS: FLUTICASONE/VILANTEROL 200/25MCG 14 PUFFS/INHALER INH SCH (08:22)
[2020-02-08] MEDS: LACTULOSE SYRUP 20 GM/30 ML UDC PO SCH ×4 (08:22→20:16)
[2020-02-08] MEDS: DICYCLOMINE HCL 20 MG TAB PO SCH ×2 (08:22→20:17)
[2020-02-08] MEDS: LOSARTAN POTASSIUM 25 MG TAB PO SCH (08:23)
[2020-02-08] MEDS: FOLIC ACID 1 MG TAB PO SCH (08:24)
[2020-02-08] MEDS: predniSONE 20 MG TAB PO SCH (08:24)
[2020-02-08] MEDS: PANTOprazole 40 MG TAB PO SCH ×2 (08:24→20:19)
[2020-02-08] MEDS: MULTIVITAMIN TAB PO SCH (08:24)
[2020-02-08] MEDS: rifAXIMin 550 MG TABLET PO SCH ×2 (08:24→20:19)
[2020-02-08] MEDS: POTASSIUM CHLORIDE 10 MEQ TABCR PO SCH (08:24)
[2020-02-08] MEDS: THIAMINE HCL 100 MG TAB PO SCH (08:24)
[2020-02-08] MEDS: FUROSEMIDE 40 MG TAB PO SCH ×2 (08:24→18:11)
[2020-02-08] MEDS: MAGNESIUM OXIDE 400 MG TAB PO SCH ×2 (08:24→20:20)
[2020-02-08] MEDS: BACLOFEN 10 MG TAB PO SCH ×3 (08:24→20:21)
[2020-02-08] MEDS: BENZONATATE 100 MG CAPSULE PO SCH ×3 (08:24→20:21)
[2020-02-08] MEDS: FERROUS SULFATE 325 MG TAB PO SCH ×2 (08:24→20:18)
[2020-02-08] MEDS: PSYLLIUM 58.6% POWDER PACKET PO SCH (08:31)
[2020-02-08] MEDS ORDERED: COUGH DROP (SUGAR FREE) LOZ 24 LOZ/1 BOX BUCCAL PRN (11:44)
[2020-02-08] MEDS: hydrOXYzine HCl 25 MG TAB PO PRN (12:15)
--- NOTE | 2020-02-08 19:56 | Hospitalist Progress Note ---
Date of Service February 08, 2020 Assessment & Plan (1) COPD exacerbation: (1) COPD exacerbation: Acute on chronic hypoxic respiratory failure secondary to CAP exacerbation, acute bronchitis Primary service notes: Increasing shortness of breath for last 2 days with the wheezing and chest tightness Requiring more oxygen at home to maintain saturation to 5 L from normal of 2 L/min via nasal cannula CT chest: No pulmonary embolism, no pneumonia COVID screen: Negative Continues to improve Sputum culture: Negative Continue prednisone taper, doxycycline, nebs every 6 hours Continue Tessalon Perles for cough, tramadol as needed Will avoid Hycodan due to interaction with baclofen Needs humidifier for home oxygen Chest discomfort Likely secondary to costochondritis secondary to coughing Tessalon Perles 3 times daily PRN tramadol EKG no signs of acute ischemia or infarct Troponins negative (2) Chronic diastolic CHF (congestive heart failure): No signs of overt volume overload Continue Lasix Headache Likely secondary to underlying illness, Solu-Medrol? CT head: No acute process PRN tramadol ordered Resolved (3) HTN (hypertension): Stable today Continue to monitor (4) Alcoholic cirrhosis: Compensated Continue rifaximin and lactulose (5) Sleep apnea: Suspected Still has to undergo sleep study as an outpatient (6) Bipolar 1 disorder: Continue antidepressant VT prophylaxis Subcu heparin Status Full Disposition Lives with family at home PT OT evaluation Plan of care discussed with patient in detail and at length All questions were answered She is understanding, agreeable, comfortable with the plan of care Admission and Anticipated Discharge Date Admission Date: February 05, 2020 Subjective Follow-up for COPD exacerbation Seen resting in bed, comfortable, not in distress Was having some chest tightness in this morning, relieved by pain medicine, nebulizer treatment States breathing continues to improve Still having cough No other symptoms today Review of Systems Review of Systems: All systems reviewed & are unremarkable except as noted in Subjective Physical Exam Physical Exam: General- oriented x 3, not in distress, speaks in sentences with no effort or accessory muscle use Eyes- anicteric Neck- no JVD Lungs- clear breath sounds bilaterally, no crackles, no wheezing bilaterally Heart- normal rate, regular rhythm; no murmurs Abdomen- normal bowel sounds, nondistended, soft, nontender Extremities- no pretibial edema, no calf tenderness Neuro- alert, oriented x 3; no gross focal neurologic deficits Skin- warm & dry Results & Data Results & Data ([facility]) Vital Signs (Past 12 Hours) Vital Signs Temp Pulse Pulse Resp BP BP Pulse Ox 02/08/20 19:32 77 22 98 02/08/20 16:00 73 02/08/20 15:13 37.2 C 76 18 149/71 H 93 02/08/20 12:08 36.8 C 69 20 118/56 L 94 02/08/20 11:51 84 20 95 02/08/20 11:31 119/69 94 02/08/20 08:20 36.9 C 73 22 122/66 93 Laboratory Results Laboratory Results - last 24 hr 02/07/20 21:22 Troponin I < 0.015
[2020-02-08] MEDS: lamoTRIgine 100 MG TAB PO SCH (20:18)
[2020-02-08] MEDS: rOPINIRole HCL 0.25 MG TABLET PO SCH (20:22)
[2020-02-08] MEDS: MONTELUKAST SODIUM 10 MG TABLET PO SCH (20:22)
[2020-02-08] MEDS: traZODone HCL 100 MG TAB PO SCH (20:22)
[2020-02-09] MEDS: LEVALBUTEROL 1.25MG/0.5ML NEB INH SCH ×4 (00:39→18:58)
[2020-02-09] MEDS: IPRATROPIUM BROMIDE NEB SOLN 0.02% 2.5 ML VIAL INH SCH ×4 (00:39→18:59)
[2020-02-09] MEDS: guaiFENesin 600 MG TABCR PO PRN (01:10)
[2020-02-09] MEDS: ACETAMINOPHEN 500 MG TAB PO SCH ×3 (06:18→20:22)
[2020-02-09] MEDS: DOXYCYCLINE HYCLATE 100 MG CAP PO SCH ×2 (06:18→20:15)
[2020-02-09] MEDS: traMADol HCL 50 MG TABLET PO PRN (08:16)
[2020-02-09] MEDS: FLUTICASONE/VILANTEROL 200/25MCG 14 PUFFS/INHALER INH SCH (08:21)
[2020-02-09] MEDS: DICYCLOMINE HCL 20 MG TAB PO SCH ×2 (08:21→20:20)
[2020-02-09] MEDS: SPIRONOLACTONE 100 MG TAB PO SCH (08:21)
[2020-02-09] MEDS: POTASSIUM CHLORIDE 10 MEQ TABCR PO SCH (08:22)
[2020-02-09] MEDS: FUROSEMIDE 40 MG TAB PO SCH ×2 (08:22→16:23)
[2020-02-09] MEDS: LOSARTAN POTASSIUM 25 MG TAB PO SCH (08:22)
[2020-02-09] MEDS: LACTULOSE SYRUP 20 GM/30 ML UDC PO SCH ×4 (08:22→20:20)
[2020-02-09] MEDS: FOLIC ACID 1 MG TAB PO SCH (08:22)
[2020-02-09] MEDS: FERROUS SULFATE 325 MG TAB PO SCH ×2 (08:22→20:21)
[2020-02-09] MEDS: TRIHEXYPHENIDYL HCL 5 MG TAB PO SCH (08:23)
[2020-02-09] MEDS: predniSONE 20 MG TAB PO SCH (08:23)
[2020-02-09] MEDS: MAGNESIUM OXIDE 400 MG TAB PO SCH ×2 (08:23→20:20)
[2020-02-09] MEDS: PANTOprazole 40 MG TAB PO SCH ×2 (08:23→20:19)
[2020-02-09] MEDS: MULTIVITAMIN TAB PO SCH (08:23)
[2020-02-09] MEDS: BENZONATATE 100 MG CAPSULE PO SCH ×3 (08:23→20:20)
[2020-02-09] MEDS: PSYLLIUM 58.6% POWDER PACKET PO SCH (08:23)
[2020-02-09] MEDS: BACLOFEN 10 MG TAB PO SCH ×3 (08:23→20:17)
[2020-02-09] MEDS: rifAXIMin 550 MG TABLET PO SCH ×2 (08:24→20:17)
[2020-02-09] MEDS: THIAMINE HCL 100 MG TAB PO SCH (08:24)
[2020-02-09] MEDS: SERTRALINE HCL 50 MG TABLET PO SCH (08:24)
--- NOTE | 2020-02-09 09:46 | Hospitalist Progress Note ---
Date of Service delayed entry date of service noted below February 09, 2020 Assessment & Plan (1) COPD exacerbation: (1) COPD exacerbation: Acute on chronic hypoxic respiratory failure secondary to CAP exacerbation, acute bronchitis Primary service notes: Increasing shortness of breath for last 2 days with the wheezing and chest tightness Requiring more oxygen at home to maintain saturation to 5 L from normal of 2 L/min via nasal cannula CT chest: No pulmonary embolism, no pneumonia COVID screen: Negative improving Sputum culture: Negative Continue prednisone taper, doxycycline, nebs every 6 hours Continue Tessalon Perles for cough, tramadol as needed Will avoid Hycodan due to interaction with baclofen Needs humidifier for home oxygen Chest discomfort Likely secondary to costochondritis secondary to coughing Tessalon Perles 3 times daily PRN tramadol EKG no signs of acute ischemia or infarct Troponins negative (2) Chronic diastolic CHF (congestive heart failure): No signs of overt volume overload Continue Lasix Headache Likely secondary to underlying illness, Solu-Medrol? CT head: No acute process PRN tramadol ordered Resolved (3) HTN (hypertension): Stable today Continue to monitor (4) Alcoholic cirrhosis: Compensated Continue rifaximin and lactulose (5) Sleep apnea: Suspected Still has to undergo sleep study as an outpatient (6) Bipolar 1 disorder: Continue antidepressant VT prophylaxis Subcu heparin Status Full Disposition Lives with family at home PT OT evaluation Plan of care discussed with patient in detail and at length All questions were answered She is understanding, agreeable, comfortable with the plan of care Admission and Anticipated Discharge Date Admission Date: February 05, 2020 Subjective ff up for COPD exacerbation seen resting in bed, not in distress states breathing continues to improve less cough no chest pain no other symptoms Review of Systems Review of Systems: All systems reviewed & are unremarkable except as noted in Subjective Physical Exam Physical Exam: General- oriented x 3, not in distress, speaks in sentences with no effort or accessory muscle use Eyes- anicteric Neck- no JVD Lungs- clear breath sounds bilaterally, no wheezing, no crackles Heart- normal rate, regular rhythm; no murmurs Abdomen- normal bowel sounds, nondistended, soft, nontender Extremities- no pretibial edema, no calf tenderness Neuro- alert, oriented x 3; no gross focal neurologic deficits Skin- warm & dry Results & Data Results & Data ([facility]) Vital Signs (Past 12 Hours) Vital Signs Temp Pulse Pulse Resp BP Pulse Ox 02/09/20 07:42 64 18 92 02/09/20 07:29 36.7 C 65 22 138/75 95 02/09/20 07:21 78 02/09/20 03:55 37.1 C 70 18 115/74 93 02/09/20 00:40 71 20 92 02/08/20 23:23 74 02/08/20 23:00 36.8 C 71 20 111/61 92 Laboratory Results noted and reviewed
[2020-02-09] MEDS: LIDOCAINE 5% 1 PATCH TD SCH (11:13)
[2020-02-09] MEDS: MONTELUKAST SODIUM 10 MG TABLET PO SCH (20:16)
[2020-02-09] MEDS: lamoTRIgine 100 MG TAB PO SCH (20:16)
[2020-02-09] MEDS: rOPINIRole HCL 0.25 MG TABLET PO SCH (20:18)
[2020-02-09] MEDS: traZODone HCL 100 MG TAB PO SCH (20:18)
[2020-02-10] MEDS: IPRATROPIUM BROMIDE NEB SOLN 0.02% 2.5 ML VIAL INH SCH ×4 (00:51→19:06)
[2020-02-10] MEDS: LEVALBUTEROL 1.25MG/0.5ML NEB INH SCH ×4 (00:51→19:06)
[2020-02-10] MEDS: DOXYCYCLINE HYCLATE 100 MG CAP PO SCH ×2 (06:07→18:22)
[2020-02-10] MEDS: ACETAMINOPHEN 500 MG TAB PO SCH ×3 (06:07→20:19)
[2020-02-10] MEDS: SPIRONOLACTONE 100 MG TAB PO SCH (08:02)
[2020-02-10] MEDS: FLUTICASONE/VILANTEROL 200/25MCG 14 PUFFS/INHALER INH SCH (08:03)
[2020-02-10] MEDS: MAGNESIUM OXIDE 400 MG TAB PO SCH ×2 (08:04→20:19)
[2020-02-10] MEDS: FOLIC ACID 1 MG TAB PO SCH (08:04)
[2020-02-10] MEDS: MULTIVITAMIN TAB PO SCH (08:04)
[2020-02-10] MEDS: THIAMINE HCL 100 MG TAB PO SCH (08:05)
[2020-02-10] MEDS: FUROSEMIDE 40 MG TAB PO SCH ×2 (08:05→18:23)
[2020-02-10] MEDS: DICYCLOMINE HCL 20 MG TAB PO SCH ×2 (08:05→20:19)
[2020-02-10] MEDS: rifAXIMin 550 MG TABLET PO SCH ×2 (08:06→20:18)
[2020-02-10] MEDS: POTASSIUM CHLORIDE 10 MEQ TABCR PO SCH (08:06)
[2020-02-10] MEDS: SERTRALINE HCL 50 MG TABLET PO SCH (08:07)
[2020-02-10] MEDS: TRIHEXYPHENIDYL HCL 5 MG TAB PO SCH (08:14)
[2020-02-10] MEDS: LIDOCAINE 5% 1 PATCH TD SCH (08:15)
[2020-02-10] MEDS: BACLOFEN 10 MG TAB PO SCH ×3 (08:15→20:17)
[2020-02-10] MEDS: LOSARTAN POTASSIUM 25 MG TAB PO SCH (08:16)
[2020-02-10] MEDS: PANTOprazole 40 MG TAB PO SCH ×2 (08:16→20:18)
[2020-02-10] MEDS: PSYLLIUM 58.6% POWDER PACKET PO SCH (08:17)
[2020-02-10] MEDS: FERROUS SULFATE 325 MG TAB PO SCH ×2 (08:17→20:17)
[2020-02-10] MEDS: predniSONE 20 MG TAB PO SCH (08:17)
[2020-02-10] MEDS: BENZONATATE 100 MG CAPSULE PO SCH ×3 (08:18→20:18)
[2020-02-10] MEDS: LACTULOSE SYRUP 20 GM/30 ML UDC PO SCH ×4 (08:18→20:19)
--- NOTE | 2020-02-10 12:03 | Pulmonary Consultation ---
Date of Consultation February 10, 2020 Assessment & Plan (1) Acute on chronic respiratory failure with hypoxia and hypercapnia: CT chest 02/05/2020 personally reviewed: Mild dependent atelectasis bilateral lower lobes, no significant mediastinal lymphadenopathy. No clear infiltrate appreciated. --Acute on chronic hypoxic respiratory failure Likely secondary to COPD/asthma (ACOS) exacerbation Patient is already doing better. Recommend continuing tapering prednisone 40 mg for 3 days followed by 20 mg for 2 days. Patient is on Symbicort at home would continue with the same. She can follow-up with an outpatient highway painter to decide if Spiriva 1.25 MCG could be added to it. Recommend PFTs as an outpatient --MELVI with morbid obesity Patient has CPAP at home but it is not working for a while She needs her CPAP machine to be fixed. She needs to use it a nightly basis. Advised to lose with diet and exercise --Active smoker Patient states that she quit a month ago Advised to continue with abstinence Plan: Continue with prednisone taper. Patient is supposed to follow-up with [facility] highway painter next . She will benefit from PFT as an outpatient. Patient is on 5 L nasal cannula at home. At the time of examination patient was saturating 94% on 2 L nasal cannula. It was made clear to the patient that her goal saturation is 88-92%. When she is exerting she might need more oxygen but when she is at rest I think she is comfortable at 2 L. No further recommendations from pulmonary perspective. Please note the above document was generated using voice recognition software. It may contain grammatical, syntax or spelling errors.Any formal questions or concerns about the content, text or information contained within the body of thi s dictation should be directly addressed to the provider for clarification. (2) COPD (chronic obstructive pulmonary disease): (3) Sleep apnea: History of Present Illness Attending Physician: Flaco Zapata MD History of Present Illness 54-year-old female with past medical history of asthma/COPD on 5 L at home, alcoholic cirrhosis, diastolic CHF, sleep apnea noncompliant with CPAP, bipolar disorder was admitted to hospital because of chest tightness and wh eezing. She has been on Solu-Medrol since admission. It has been titrated down to prednisone as of today. At the time of examination she states she is feeling better. Does complain of still chest tightness which is mostly in the epigastric region nonreproducible. She does have history of reflux unsure if it is from reflux. Cough is decreased in intensity. Denies any fever or chills. No dysuria, no diarrhea. No recent travel history. She does have sleep apnea but she has not been using her CPAP machine as it is broken for a long time. Patient's was present at bedside during the time of examination. Social history: 48-quyl-wual smoking history, states that she quit approximately a month ago. Allergies Allergy/AdvReac Type Severity Reaction Status Date / Time strawberry Allergy Severe HIVES Verified 02/05/20 14:35 bee venom protein (honey bee) Allergy Unknown HIVES AND Verified 02/05/20 14:35 SWELLING pollen extracts Allergy Unknown UNKNOWN Verified 02/05/20 14:35 No Known Drug Allergies Allergy Verified 02/05/20 14:35 [place] Tar Allergy Mild Unknown Uncoded 02/05/20 14:35 Home Medications Home Medications Medication Instructions Recorded Confirmed Type fluticasone propionate [Flonase 2 spray INTRANASAL DAILY PRN 02/22/18 02/05/20 History Allergy Relief] furosemide [Lasix] 40 mg PO BID 02/22/18 02/05/20 History pantoprazole [Protonix] 40 mg PO BID 02/22/18 02/05/20 History ropinirole [Requip] 0.25 mg PO HS 02/22/18 02/05/20 History albuterol sulfate 90 mcg/actuation 2 puffs INH Q6H PRN 11/28/18 02/05/20 History aerosol inhaler budesonide-formoterol HFA 160 2 puffs INH BID 11/28/18 02/05/20 History mcg-4.5 mcg/actuation aerosol inhaler ferrous sulfate 325 mg (65 mg 325 mg PO BID 11/28/18 02/05/20 History iron) tablet,delayed release folic acid 1 mg tablet 1 mg PO QAM tab 11/28/18 02/05/20 History losartan 25 mg tablet 25 mg PO DAILY tab 11/28/18 02/05/20 History magnesium oxide 400 mg PO BID 11/28/18 02/05/20 History montelukast 10 mg tablet 10 mg PO HS tab 11/28/18 02/05/20 History potassium chloride 10 mEq 10 meq PO DAILY tab 11/28/18 02/05/20 History tablet,extended release rifaximin 550 mg tablet 550 mg PO BID 11/28/18 02/05/20 History thiamine HCl (vitamin B1) 100 mg 100 mg PO QAM tab 11/28/18 02/05/20 History tablet dextromethorphan-guaifenesin 30 1 tab PO Q12H PRN 12/13/18 02/05/20 History mg-600 mg tablet extended [id number] hr lactulose 10 gram/15 mL oral 60 ml PO QID ml 12/13/18 02/05/20 History solution ondansetron HCl 4 mg tablet 4 mg PO Q8H PRN 12/13/18 02/05/20 History trihexyphenidyl 5 mg tablet 2.5 mg PO DAILY 12/13/18 02/05/20 History spironolactone 100 mg tablet 150 mg PO QAM tab 01/25/19 02/05/20 History hydroxyzine HCl 25 mg PO BID PRN 04/27/19 02/05/20 History lamotrigine 150 mg PO HS 11/13/19 02/05/20 History sertraline 75 mg PO QAM 11/13/19 02/05/20 History psyllium 1 pkt PO DAILY #30 ea 11/16/19 02/05/20 Rx baclofen 10 mg PO TID 02/05/20 02/05/20 History benzonatate 100 mg PO TID PRN 02/05/20 02/05/20 History dicyclomine 20 mg PO BID 02/05/20 02/05/20 History multivitamin [Tab-A-Malinda] 1 tab PO QAM 02/05/20 02/05/20 History polyethylene glycol 3350 [Miralax] 17 g PO DAILY PRN 02/05/20 02/05/20 History tramadol [Ultram] 50 mg PO BID PRN 02/05/20 02/05/20 History trazodone 100 mg PO HS 02/05/20 02/05/20 History Patient History Medical History Alcoholic cirrhosis Anemia, chronic disease Anxiety Asthma Bipolar 1 disorder Chronic diastolic CHF (congestive heart failure) COPD (chronic obstructive pulmonary disease) H/O alcohol abuse HTN, goal below 140/90 Hx of migraines MELVI (obstructive sleep apnea) Sleep apnea Tobacco use disorder Surgical History History of spinal fusion History of total right knee replacement S/P cholecystectomy S/P tubal ligation Family History Sister Diabetes Social History Smoking Status: Former smoker Cigarettes Per Day: 10; Second Hand Exposure: No; Do You Dip or Chew Tobacco: No; Tobacco Cessation Education Requested by Patient: No Hx Alcohol Use: No Hx Substance Use: No Preferred Language: Mongolian Communication Ability: Effective Plastic Surgery Technician Required: No Beliefs That Will Affect Care: None marital status: Current Living Situation: Spouse How many Children do You have: 4 Other Information That Helps Us Care for You: No Feels Safe at Home: Yes Safety Concerns: Feels Safe At This Time Assistive Devices: Oxygen - Continuous Review of Systems Review of Systems: All systems reviewed & are unremarkable except as noted in HPI & below Physical Exam Physical Exam: Constitutional: No acute distress HEENT: EOMI, PERRLA Respiratory system: Decreased air entry bilaterally, no wheeze, no rhonchi, mild crackles bilateral lower lobes CVS: S1-S2 positive, no murmurs or gallops Abdomen: Soft, nontender, nondistended, positive bowel sounds x4, obese Extremities: +2 pulses bilaterally radialis/ dorsalis pedis, no cyanosis, no edema Neuro: Awake alert oriented x3 Psych: Normal mood and affect G/U: No Bacon At the start of the interrogation patient was on 5 L nasal cannula saturating 98%. I gradually went down to 2 L she was still saturating 94%. Results & Data Results & Data ([facility]) Vital Signs (Past 12 Hours) Vital Signs Temp Pulse Pulse Resp BP Pulse Ox 02/10/20 07:46 37.1 C 71 18 128/73 94 02/10/20 07:30 70 18 92 02/10/20 04:13 72 02/10/20 03:00 37.5 C 72 20 91/45 L 94 02/10/20 00:51 75 20 95 02/09/20 23:44 37.4 C 70 20 111/65 94 02/06/20 07:11 02/06/20 07:11 PG Care Time/CCT Total # of Minutes Spent Total Time Spent with Patient: Total time spent is greater than 50% in coordination of care (as documented) at patient's floor/unit and/or counseling patient: Coding Level of Care Code 87354 Initial Inpt Care Lvl 3 Diagnoses Acute on chronic respiratory failure with hypoxia and hypercapnia J96.21; J96.22 COPD (chronic obstructive pulmonary disease) J44.9 Sleep apnea G47.30
[2020-02-10] MEDS: hydrOXYzine HCl 25 MG TAB PO PRN (16:01)
[2020-02-10] MEDS: guaiFENesin 600 MG TABCR PO PRN (18:29)
[2020-02-10] MEDS: traMADol HCL 50 MG TABLET PO PRN ×2 (18:29)
[2020-02-10] MEDS: lamoTRIgine 100 MG TAB PO SCH (20:17)
[2020-02-10] MEDS: traZODone HCL 100 MG TAB PO SCH (20:17)
[2020-02-10] MEDS: MONTELUKAST SODIUM 10 MG TABLET PO SCH (20:18)
[2020-02-10] MEDS: rOPINIRole HCL 0.25 MG TABLET PO SCH (20:18)
--- NOTE | 2020-02-10 20:32 | Hospitalist Progress Note ---
Date of Service February 10, 2020 Assessment & Plan (1) COPD exacerbation: (1) COPD exacerbation: Acute on chronic hypoxic respiratory failure secondary to CAP exacerbation, acute bronchitis Primary service notes: Increasing shortness of breath for last 2 days with the wheezing and chest tightness Requiring more oxygen at home to maintain saturation to 5 L from normal of 2 L/min via nasal cannula CT chest: No pulmonary embolism, no pneumonia COVID screen: Negative Sputum culture: Negative Continue prednisone taper, doxycycline, nebs every 6 hours Continue Tessalon Perles for cough, tramadol as needed improving Needs humidifier for home oxygen Chest discomfort Likely secondary to costochondritis secondary to coughing Tessalon Perles 3 times daily PRN tramadol EKG no signs of acute ischemia or infarct Troponins negative Dysphagia Speech therapy evaluation (2) Chronic diastolic CHF (congestive heart failure): No signs of overt volume overload Continue Lasix Headache Likely secondary to underlying illness, Solu-Medrol? CT head: No acute process PRN tramadol ordered Resolved (3) HTN (hypertension): Stable today Continue to monitor (4) Alcoholic cirrhosis: Compensated Continue rifaximin and lactulose (5) Sleep apnea: Suspected Still has to undergo sleep study as an outpatient (6) Bipolar 1 disorder: Continue antidepressant VT prophylaxis Subcu heparin Status Full Disposition Lives with family at home anticipate d/c home tomorrow Plan of care discussed with patient in detail and at length All questions were answered She is understanding, agreeable, comfortable with the plan of care Admission and Anticipated Discharge Date Admission Date: February 05, 2020 Subjective ff up for copd exacerbation seen resting in bed, comfortable sitting up not in distress states she continues to feel improved cough improving reports intermittent dysphagia no other symptoms Review of Systems Review of Systems: All systems reviewed & are unremarkable except as noted in Subjective Physical Exam Physical Exam: General- oriented x 3, not in distress, speaks in sentences with no effort or accessory muscle use Eyes- anicteric Neck- no JVD Lungs- clear breath sounds, no crackles/wheezing Heart- normal rate, regular rhythm; no murmurs Abdomen- normal bowel sounds, nondistended, soft, nontender Extremities- no pretibial edema, no calf tenderness Neuro- alert, oriented x 3; no gross focal neurologic deficits Skin- warm & dry Results & Data Results & Data ([facility]) Vital Signs (Past 12 Hours) Vital Signs Temp Pulse Resp BP Pulse Ox 02/10/20 19:35 37.4 C 74 20 139/56 L 92 02/10/20 19:06 87 20 97 02/10/20 16:08 88 20 97 02/10/20 16:01 37.1 C 75 18 123/63 94 02/10/20 13:02 73 18 92 02/10/20 11:48 36.9 C 66 20 135/77 94
[2020-02-11] MEDS: LEVALBUTEROL 1.25MG/0.5ML NEB INH SCH ×3 (00:39→13:29)
[2020-02-11] MEDS: IPRATROPIUM BROMIDE NEB SOLN 0.02% 2.5 ML VIAL INH SCH ×3 (00:39→13:29)
[2020-02-11] MEDS ORDERED: BACLOFEN 10 MG TAB PO STA (01:04)
[2020-02-11] MEDS: DOXYCYCLINE HYCLATE 100 MG CAP PO SCH (06:04)
[2020-02-11] MEDS: ACETAMINOPHEN 500 MG TAB PO SCH ×2 (06:04→14:05)
[2020-02-11] MEDS: FLUTICASONE/VILANTEROL 200/25MCG 14 PUFFS/INHALER INH SCH (07:37)
[2020-02-11] MEDS: LIDOCAINE 5% 1 PATCH TD SCH (07:37)
[2020-02-11] MEDS: LACTULOSE SYRUP 20 GM/30 ML UDC PO SCH ×2 (07:38→14:04)
[2020-02-11] MEDS: MAGNESIUM OXIDE 400 MG TAB PO SCH (07:38)
[2020-02-11] MEDS: FUROSEMIDE 40 MG TAB PO SCH (07:38)
[2020-02-11] MEDS: DICYCLOMINE HCL 20 MG TAB PO SCH (07:39)
[2020-02-11] MEDS: BACLOFEN 10 MG TAB PO SCH ×2 (07:39→14:05)
[2020-02-11] MEDS: TRIHEXYPHENIDYL HCL 5 MG TAB PO SCH (07:39)
[2020-02-11] MEDS: LOSARTAN POTASSIUM 25 MG TAB PO SCH (07:40)
[2020-02-11] MEDS: rifAXIMin 550 MG TABLET PO SCH (07:40)
[2020-02-11] MEDS: THIAMINE HCL 100 MG TAB PO SCH (07:40)
[2020-02-11] MEDS: FERROUS SULFATE 325 MG TAB PO SCH (07:41)
[2020-02-11] MEDS: PANTOprazole 40 MG TAB PO SCH (07:41)
[2020-02-11] MEDS: SERTRALINE HCL 50 MG TABLET PO SCH (07:41)
[2020-02-11] MEDS: SPIRONOLACTONE 100 MG TAB PO SCH (07:42)
[2020-02-11] MEDS: PSYLLIUM 58.6% POWDER PACKET PO SCH (07:44)
[2020-02-11] MEDS: POTASSIUM CHLORIDE 10 MEQ TABCR PO SCH (07:44)
[2020-02-11] MEDS: FOLIC ACID 1 MG TAB PO SCH (07:44)
[2020-02-11] MEDS: MULTIVITAMIN TAB PO SCH (07:44)
[2020-02-11] MEDS: predniSONE 20 MG TAB PO SCH (07:45)
[2020-02-11] MEDS: BENZONATATE 100 MG CAPSULE PO SCH ×2 (07:45→14:05)
[2020-02-11] MEDS ORDERED: IPRATROPIUM BROMIDE NEB SOLN 0.02% 2.5 ML VIAL INH PRN (13:28)
[2020-02-11] MEDS ORDERED: LEVALBUTEROL 1.25MG/0.5ML NEB INH PRN (13:28)
--- NOTE | 2020-02-11 14:21 | Hospitalist Progress Note ---
Date of Service February 11, 2020 Assessment & Plan (1) COPD exacerbation: COPD exacerbation: Acute on chronic hypoxic respiratory failure secondary to CAP exacerbation, acute bronchitis Primary service notes: Increasing shortness of breath for last 2 days with the wheezing and chest tightness Requiring more oxygen at home to maintain saturation to 5 L from normal of 2 L/min via nasal cannula CT chest: No pulmonary embolism, no pneumonia COVID screen: Negative Sputum culture: Negative Patient placed on IV Solu-Medrol then transition to prednisone taper Also given doxycycline, nebs every 6 hours, Tessalon Perles for cough Reporting chest discomfort, likely secondary to chest wall pain from coughing, given tramadol as needed Patient much better overall Recommend 2 L of oxygen via nasal cannula at rest, 4 L while ambulating Evaluated by pulmonary service, Dr. Mensah Discharged on: Prednisone 40 mg x 2 days, 20 mg x 2 days then stop Doxycycline x2 days Continue usual Symbicort Possible trial of Spiriva as an outpatient Follow-up with call or contact centre manager as scheduled this month Will benefit from PFT as an outpatient Chest discomfort Likely secondary to costochondritis secondary to coughing Tessalon Perles 3 times daily PRN tramadol EKG no signs of acute ischemia or infarct Troponins negative Dysphagia Speech therapy evaluation: Recommend ECHO, slippery diet Chronic diastolic CHF (congestive heart failure): No signs of overt volume overload Continue Lasix Headache Likely secondary to underlying illness, Solu-Medrol? CT head: No acute process PRN tramadol ordered Resolved HTN (hypertension): Stable Continue to monitor Alcoholic cirrhosis: Compensated Continue rifaximin and lactulose Sleep apnea: Suspected Still has to undergo sleep study as an outpatient Bipolar 1 disorder: Continue antidepressant VT prophylaxis Given subcu heparin Disposition Lives with family at home Discharge to home today with home of service Follow-up with PCP in 1 week Follow-up with the call or contact centre manager this month as scheduled Plan of care discussed with patient in detail and at length All questions were answered She is understanding, agreeable, comfortable with the plan of care Admission and Anticipated Discharge Date Admission Date: February 05, 2020 Subjective Follow-up for COPD exacerbation, etc. Seen sitting up in bed, watching TV, comfortable States she feels fine much better overall No shortness of breath Cough much improved No fevers or chills Denies other symptoms States that she is ready and would like to be discharged today Review of Systems Review of Systems: All systems reviewed & are unremarkable except as noted in Subjective Physical Exam Physical Exam: General- oriented x 3, not in distress, speaks in sentences with no effort or accessory muscle use Eyes- anicteric Neck- no JVD Lungs- clear breath sounds, no crackles, no wheezing bilaterally Heart- normal rate, regular rhythm; no murmurs Abdomen- normal bowel sounds, nondistended, soft, nontender Extremities- no pretibial edema, no calf tenderness Neuro- alert, oriented x 3; no gross focal neurologic deficits Skin- warm & dry Results & Data Results & Data ([facility]) Vital Signs (Past 12 Hours) Vital Signs Temp Pulse Pulse Pulse Pulse Pulse Pulse 02/11/20 09:11 115 H 89 79 79 77 02/11/20 07:08 37.0 C 65 02/11/20 07:07 65 Pulse Resp Resp Resp Resp Resp Resp 02/11/20 09:11 71 24 23 21 24 20 02/11/20 07:08 18 02/11/20 07:07 18 Resp BP Pulse Ox Pulse Ox Pulse Ox Pulse Ox Pulse Ox 02/11/20 09:11 18 86 L 87 L 90 86 L 02/11/20 07:08 132/65 94 02/11/20 07:07 95 Pulse Ox Pulse Ox 02/11/20 09:11 93 94 02/11/20 07:08 02/11/20 07:07
--- NOTE | 2020-02-11 14:45 | Discharge Summary ---
Date of Service February 11, 2020 Admission HPI Per Admitting Provider Is a 54-year-old obese female with significant past medical history of COPD on 2 L home O2, alcoholic cirrhosis, hypertension, chronic diastolic CHF, sleep apnea and history of bipolar disorder has been complaining of increasing shortness of breath with chest tightness and wheezing for the last 2 days. She has cough without any phlegm. Denies any fever and/or chills. No chest pain and/or palpitation. She has been smoking for the last 1 month or so since she has been on oxygen. Denies any abdominal pain nausea and or vomiting and no increase in swelling of the legs. She was noted to have very low O2 saturation in the emergency room but his CT scan of the chest did not show any infiltration and/or pulmonary embolism. Her other labs were unremarkable including EKG and cardiac troponin. She was admitted to [facility] telemetry unit for continuation of care. Admission Exam Per Admitting Provider Physical Exam: Lying in bed comfortably Constitutional: well developed, well nourished, + acute distress (Minimal shortness of breath at rest) and + obese; not ill appearing Eyes: PERRL, conjunctivae normal, anicteric sclerae ENMT: external ear and nose normal, oropharynx normal Neck: trachea midline, no thyromegaly Respiratory: normal respiratory effort and + respiratory distress (Minimal distress at rest) Auscultation: + diminished lung sounds and + crackles (Minimal bibasilar crackles); no wheezes Cardiovascular: Rate/Rhythm: regular rate and regular rhythm Heart Sounds: no murmur Extremities: + edema Gastrointestinal (Abdomen): Inspection/Auscultation: abdomen normal to inspection, + abdomen distended and normal bowel sounds Percussion/Palpation: abdomen soft; abdomen nontender Musculoskeletal: No acute arthritis involving any joints Neurologic: moves all extremities; no focal motor deficits Alert, awake and oriented x3 Psychiatric: A+Ox3, euthymic affect Lymphatic: no cervical or axillary lymphadenopathy Principal Diagnosis Acute COPD exacerbation, secondary to acute bronchitis Discharge Exam General- oriented x 3, not in distress, speaks in sentences with no effort or accessory muscle use Eyes- anicteric Neck- no JVD Lungs- clear breath sounds, no crackles, no wheezing bilaterally Heart- normal rate, regular rhythm; no murmurs Abdomen- normal bowel sounds, nondistended, soft, nontender Extremities- no pretibial edema, no calf tenderness Neuro- alert, oriented x 3; no gross focal neurologic deficits Skin- warm & dry Discharge Data Allergies Allergy/AdvReac Type Severity Reaction Status Date / Time strawberry Allergy Severe HIVES Verified 02/05/20 14:35 bee venom protein (honey bee) Allergy Unknown HIVES AND Verified 02/05/20 14:35 SWELLING pollen extracts Allergy Unknown UNKNOWN Verified 02/05/20 14:35 No Known Drug Allergies Allergy Verified 02/05/20 14:35 Qulin Tar Allergy Mild Unknown Uncoded 02/05/20 14:35 Consultations 02/05/20 15:07 ED Decision to Admit Stat 02/10/20 08:05 Consult Pulmonology Routine Ordered Studies 02/05/20 12:57 CT angio chest PE protocol Stat FINDINGS: Images of the upper abdomen reveal probable splenomegaly with perigastric varices. No pathologically enlarged axillary mediastinal or hilar lymph nodes were visualized. There was no evidence of thoracic aortic dilatation. There were no pulmonary artery filling defects to indicate acute pulmonary embolism. No pleural effusions are visualized. There are mild dependent atelectatic changes. There is no focal pulmonary consolidation. There is a 4 mm calcified left upper lobe granuloma IMPRESSION: 1. No acute intrathoracic findings 2. No evidence of acute pulmonary embolism 3. No evidence of focal parenchymal consolidation 02/06/20 12:01 CT head/brain wo con Stat FINDINGS: No intra or extra-axial mass lesions are visualized. There is no CT evidence of acute cortical infarction. There is no evidence of midline shift. There is no acute hemorrhage. No calvarial fractures are visualized. There is no evidence of pathologic ventricular dilatation. There is no evidence of acute sinusitis IMPRESSION: No acute intracranial findings 02/07/20 10:15 US venous doppler LE BI Routine FINDINGS: The bilateral common femoral, superficial femoral and popliteal veins were compressible. Augmentation was normal. Flow was shown within the deep calf vessels. IMPRESSION: No evidence of deep venous thrombus within the bilateral lower extremities. Hospital Course (1) COPD exacerbation: COPD exacerbation: Acute on chronic hypoxic respiratory failure secondary to CAP exacerbation, acute bronchitis Primary service notes: Increasing shortness of breath for last 2 days with the wheezing and chest tightness Requiring more oxygen at home to maintain saturation to 5 L from normal of 2 L/min via nasal cannula CT chest: No pulmonary embolism, no pneumonia COVID screen: Negative Sputum culture: Negative Patient placed on IV Solu-Medrol then transitionED to prednisone taper Also given doxycycline, nebs every 6 hours, Tessalon Perles for cough Reporting chest discomfort, likely secondary to chest wall pain from coughing, given tramadol as needed Patient much better overall Recommend 2 L of oxygen via nasal cannula at rest, 4 L while ambulating Evaluated by pulmonary service, Dr. Mensah Discharge on: Prednisone 40 mg x 2 days, 20 mg x 2 days then stop Doxycycline x2 days Continue usual Symbicort Possible trial of Spiriva as an outpatient Follow-up with [facility] as scheduled this month Will benefit from PFT as an outpatient Chest discomfort Likely secondary to costochondritis secondary to coughing Tessalon Perles 3 times daily PRN tramadol EKG no signs of acute ischemia or infarct Troponins negative Dysphagia Speech therapy evaluation: Recommend ECHO, slippery diet GI consult for reflux/esophageal dysfunction Chronic diastolic CHF (congestive heart failure): No signs of overt volume overload Continue Lasix Headache Likely secondary to underlying illness, Solu-Medrol? CT head: No acute process PRN tramadol ordered Resolved HTN (hypertension): Stable Continue to monitor Alcoholic cirrhosis: Compensated Continue rifaximin and lactulose Sleep apnea: Suspected Still has to undergo sleep study as an outpatient Bipolar 1 disorder: Continue antidepressant Disposition Lives with family at home Discharge to home today with home of service Follow-up with PCP in 1 week Follow-up with the [facility] this month as scheduled Plan of care discussed with patient in detail and at length All questions were answered She is understanding, agreeable, comfortable with the plan of care Total Time Total Time Spent Total Time Spent (In Minutes): 50 minutes Discharge Plan Discharge Items Patient Disposition: Home - Home Health Services Reason For Visit: COPD EXACERBATION, HYPOXEMIA Discharge Diagnosis: COPD exacerbation secondary to acute bronchitis Condition on Discharge: Good Activity: As commented below Activity Comment: Resume activity gradually as tolerated, no heavy exertion Lifting: Wait until after follow-up appointment Exercise/Sports: Wait until after follow-up appointment Driving/Machine Use: No driving Non-emergency contact: Primary Care Provider Call non-emergency contact if: you have any medication questions, your symptoms worsen, your pain is not controlled, your pain is worsening, your pain is unusual for you, your pain is concerning for you and you have a fever Follow-up/Referrals: Rangel Crane, [Primary Care Provider] - 02/14/20 11:20 am (Date & Time 02/14/2020 11:20 AM Provider Rangel Crane DO Department General Internal Medicine [facility] ) Wolf Garay MD [Outside Practitioners] - (Date & Time 02/20/2020 10:30 AM Provider Wolf Garay MD Department Pulmonary Medicine, [facility], [place] ) Diet: Heart Healthy Addtl Attending Provider Instructions: Please review your new medication list and follow instructions carefully. Your new medications include: Prednisone-for COPD exacerbation Doxycycline- antibiotics for bronchitis Xopenex and Atrovent-medications for nebulizer machine Call your primary care physician or return to the ER immediately if with worsening of symptoms, including Worsening of cough, fevers or chills, shortness of breath. Follow-up with PCP in 1 week. Follow-up with [facility] this month as scheduled. You may use oxygen via nasal cannula 2 L while at rest (increase as needed), 4 L with ambulation. Please follow speech therapy recommendations: Easy to diet, slippery. Avoid foods that are dry, thick, pasty and doughy. Add condiments to foods to keep them moist such as gravy or broth Aspiration reflux precautions Alternate solids and liquids Fully alert and upright Give meds in a carrier Single bites/small sips/slow rate Alternate solids and liquids Head of bed 30 degrees at all times Sleep with diet Upright with meals for at least 30-minute Pending Studies at Discharge: No Stand-Alone Forms: My [facility]!, Smoking Cessation Medications and DC Order Prescriptions: New doxycycline hyclate 100 mg Capsule 100 mg PO BID@0630,1830 Qty: 4 RF: 0 ipratropium bromide 0.02 % Solution 0.5 mg inhalation Q4H PRN (Reason: shortness of breath or wheezing) Qty: 62.5 RF: 2 levalbuterol HCl 1.25 mg/0.5 mL Solution For Nebulization 1.25 mg inhalation Q4H PRN (Reason: shortness of breath or wheezing) Qty: 25 RF: 2 prednisone 20 mg Tablet 20 mg PO UD Qty: 6 RF: 0 benzonatate [Tessalon Perles] 100 mg Capsule 100 mg PO TID PRN (Reason: cough) Qty: 21 RF: 0 Continued Symbicort 160-4.5 mcg/actuation HFA aerosol inhaler 2 puffs INH BID RF: 0 albuterol sulfate [Ventolin HFA] 90 mcg/actuation HFA aerosol inhaler 2 puffs INH Q6H PRN (Reason: Wheezing) RF: 0 Xifaxan 550 mg tablet 550 mg PO BID RF: 0 lactulose 10 gram/15 mL solution 60 ml PO QID RF: 0 Mucinex DM 30-600 mg tablet extended release 12 hr 1 tab PO Q12H PRN (Reason: Cough) RF: 0 ondansetron HCl 4 mg tablet 4 mg PO Q8H PRN (Reason: Nausea) RF: 0 trihexyphenidyl 5 mg tablet 2.5 mg PO DAILY RF: 0 folic acid 1 mg tablet 1 mg PO QAM RF: 0 hydroxyzine HCl 25 mg tablet 25 mg PO BID PRN (Reason: Anxiety) RF: 0 multivitamin [Tab-A-Malinda] Tablet 1 tab PO QAM RF: 0 trazodone 100 mg tablet 100 mg PO HS RF: 0 baclofen 10 mg tablet 10 mg PO TID RF: 0 benzonatate 100 mg capsule 100 mg PO TID PRN (Reason: Cough) RF: 0 polyethylene glycol 3350 [Miralax] 17 gram powder in packet 17 g PO DAILY PRN (Reason: Constipation) RF: 0 tramadol [Ultram] 50 mg tablet 50 mg PO BID PRN (Reason: Pain, Severe) RF: 0 dicyclomine 20 mg tablet 20 mg PO BID RF: 0 furosemide [Lasix] 40 mg tablet 40 mg PO BID RF: 0 ropinirole [Requip] 0.25 mg tablet 0.25 mg PO HS RF: 0 pantoprazole [Protonix] 40 mg tablet,delayed release (DR/EC) 40 mg PO BID RF: 0 fluticasone propionate [Flonase Allergy Relief] 50 mcg/actuation spray,suspension 2 spray Intranasal DAILY PRN (Reason: Allergy Symptoms) RF: 0 ferrous sulfate 325 mg (65 mg iron) tablet,delayed release (DR/EC) 325 mg PO BID RF: 0 losartan [Cozaar] 25 mg tablet 25 mg PO DAILY RF: 0 magnesium oxide 400 mg magnesium tablet 400 mg PO BID RF: 0 montelukast [Singulair] 10 mg tablet 10 mg PO HS RF: 0 potassium chloride [Klor-Con 10] 10 mEq tablet extended release 10 meq PO DAILY RF: 0 thiamine HCl (vitamin B1) [Vitamin B-1] 100 mg tablet 100 mg PO QAM RF: 0 spironolactone [Aldactone] 100 mg tablet 150 mg PO QAM RF: 0 lamotrigine 150 mg tablet 150 mg PO HS RF: 0 sertraline 50 mg tablet 75 mg PO QAM RF: 0 psyllium Packet 1 pkt PO DAILY Qty: 30 RF: 0 Discharge Orders: Discharge Order (Routine); Ordered 02/11/20 Ordered By: Flaco Zapata Admission Data Admit Date/Time: 02/05/20 16:09 Attending Provider: Flaco Zapata Admit Provider: Rebekah Simpson Primary Care Provider: Rangel Crane Other Providers: Rebekah Simpson ; Shaunna Mensah
== END 2020-02-11 16:10 | disposition home health service (06) | DRG 190 ==
LOC: ED 11:25 → 2N 16:09 → 3N 02-11 07:52

== ENCOUNTER 2020-05-31 11:24 | Inpatient (IN) ==
--- NOTE | 2020-05-31 11:52 | Emergency Department Note ---
Impression & Plan Arm paresthesia, right, Acute hypokalemia, Acute hypernatremia ED Provider Note NAME: MAIKOL PETERSON AGE: 54 SEX: F : 1965 ARRIVES VIA: Walk-In INFORMANT: Patient ED PROVIDER(S): Higinio Hi DO CHIEF COMPLAINT: Right-sided paresthesias/numbness HPI: Patient is a 54-year-old female with a past medical history of COPD that presents the ER for right-sided paresthesias. Started this morning when she woke up around 7. She went to bed last night some around 10. She was seen and evaluated 3 to 4 days ago and had CTs as well as an MRI and diagnosed with a Khan's palsy. She denies any focal weakness with exception that her right hand feels weaker than anything else. She denies any headache or change in vision. No chest pain or shortness of breath. No nausea vomiting or diarrhea. No dysuria urgency or frequency. No other exacerbating or remitting factors. ROS: See above HPI for pertinent positives & negatives. A total of 10 systems reviewed and were otherwise negative. PAST MEDICAL HISTORY:See Below PAST SURGICAL HISTORY:See Below FAMILY HISTORY:See Below SOCIAL HISTORY:See Below HOME MEDICATIONS:See Below ALLERGIES:See Below VITALS:See Below PHYSICAL EXAMINATION: GENERAL: Sitting up in bed, alert, obese, on 6 L NC EYE EXAM: normal conjunctiva. OROPHARYNX: no exudate, no erythema, lips, buccal mucosa, and tongue normal and mucous membranes are moist NECK: supple, no nuchal rigidity, no adenopathy, non-tender LUNGS: Coarse at bilateral bases. Normal chest wall mechanics HEART: no murmurs, S1 normal and S2 normal ABDOMEN: abdomen soft, non-tender, normo-active bowel sounds, no masses, no rebound or guarding. UPPER EXTREMITIES: upper extremities are grossly normal. LOWER EXTREMITIES: No pitting edema. NEURO EXAM: Normal sensorium, cranial nerves II-XII intact, normal speech, no weakness of arms, no weakness of legs. No drift. [id number] intact. MEDICAL DECISION MAKING: Patient is a 54-year-old female who presents the ER for right-sided paresthesias in the face arm and right lower extremity which she woke up with this morning. IV was established blood work was obtained. Labs show mild anemia consistent with previous at 10.6. No significant leukocytosis. INR was at 1.2. BMP with hyponatremia 148 and a potassium of 3.0. Chloride slightly elevated at 114 as well. LFTs bilirubin were unremarkable. Troponin was negative. UA was clean. Covid was negative. CT head was negative. EKG was nondiagnostic. Previous MRI and CT angios were reviewed. These were not repeated. She was updated bedside. Discussed with hospitalist for further evaluation. Potassium was repleted while in the ER. Triage Nursing notes reviewed. Limited review of prior medical records performed Vital Signs: reviewed and remarkable for HTN Differential diagnosis: Differential Diagnosis includes but is not limited to ischemic Stroke, hemorrh agic stroke, bells palsy, mass, neoplasm, migraine headache, seizure, subarachnoid hemorrhage, TIA, and transient global amnesia. ER treatment provided: See below Diagnostics interpreted by me: ECG: Sinus rhythm rate 75 Normal axis No PVCs Poor baseline QTC 464 Cardiac Monitoring: An order was placed for continuous cardiac monitoring. The monitor shows a rate of 70 with sinus rhythm. Laboratory studies: As stated above and show below. Imaging studies: CT of the head shows no acute pathology Chest x-ray with some vascular congestion Consultation(s): Discussed with hospitalist for further evaluation Procedures: none Critical Care: None Past Med/Surg History Medical History (Updated 05/31/20 @ 16:56 by Higinio Hi DO) Alcoholic cirrhosis Anemia, chronic disease Anxiety Asthma Bipolar 1 disorder Chronic diastolic CHF (congestive heart failure) COPD (chronic obstructive pulmonary disease) H/O alcohol abuse HTN, goal below 140/90 Hx of migraines MELVI (obstructive sleep apnea) Sleep apnea Tobacco use disorder Surgical History History of spinal fusion History of total right knee replacement S/P cholecystectomy S/P tubal ligation Family History Sister Diabetes Mother Hodgkin lymphoma Father Brain tumor Social History Smoking Status: Former smoker Tobacco Type: Cigarettes Cigarettes Per Day: 10; Second Hand Exposure: No; Hx Alcohol Use: No Hx Substance Use: No Preferred Language: Arabic Communication Ability: Effective Senior Web Analyst Required: No Beliefs That Will Affect Care: None marital status: Current Living Situation: Spouse How many Children do You have: 4 Other Information That Helps Us Care for You: No Feels Safe at Home: Yes Safety Concerns: Feels Safe At This Time Assistive Devices: Glasses and Oxygen - Continuous Allergies Allergies Allergy/AdvReac Type Severity Reaction Status Date / Time strawberry Allergy Severe HIVES Verified 05/31/20 12:19 bee venom protein (honey bee) Allergy Unknown HIVES AND Verified 05/31/20 12:19 SWELLING pollen extracts Allergy Unknown UNKNOWN Verified 05/31/20 12:19 No Known Drug Allergies Allergy Unknown Verified 05/31/20 12:19 [place] Tar Allergy Mild Unknown Uncoded 05/31/20 12:19 Home Meds Home Medications Medication Instructions Recorded Confirmed fluticasone propionate [Flonase 2 spray INTRANASAL DAILY PRN 02/22/18 05/31/20 Allergy Relief] furosemide [Lasix] 40 mg PO BID 02/22/18 05/31/20 pantoprazole [Protonix] 40 mg PO BID 02/22/18 05/31/20 ropinirole [Requip] 0.25 mg PO HS 02/22/18 05/31/20 albuterol sulfate 90 mcg/actuation 2 puffs INH Q6H PRN 11/28/18 05/31/20 aerosol inhaler budesonide-formoterol HFA 160 2 puffs INH BID 11/28/18 05/31/20 mcg-4.5 mcg/actuation aerosol inhaler folic acid 1 mg tablet 1 mg PO QAM tab 11/28/18 05/31/20 losartan 25 mg tablet 25 mg PO QAM tab 11/28/18 05/31/20 magnesium oxide 400 mg PO BID 11/28/18 05/31/20 montelukast 10 mg tablet 10 mg PO HS tab 11/28/18 05/31/20 potassium chloride 10 mEq 10 meq PO QAM tab 11/28/18 05/31/20 tablet,extended release rifaximin 550 mg tablet 550 mg PO BID 11/28/18 05/31/20 thiamine HCl (vitamin B1) 100 mg 100 mg PO QAM tab 11/28/18 05/31/20 tablet dextromethorphan-guaifenesin 30 1 tab PO Q12H PRN 12/13/18 05/31/20 mg-600 mg tablet extended [id number] hr lactulose 10 gram/15 mL oral 60 ml PO QID ml 12/13/18 05/31/20 solution spironolactone 100 mg tablet 150 mg PO QAM tab 01/25/19 05/31/20 hydroxyzine HCl 25 mg PO BID PRN 04/27/19 05/31/20 lamotrigine 150 mg PO HS 11/13/19 05/31/20 sertraline 75 mg PO QAM 11/13/19 05/31/20 dicyclomine 20 mg PO BID 02/05/20 05/31/20 polyethylene glycol 3350 [Miralax] 17 g PO DAILY PRN 02/05/20 05/31/20 tramadol [Ultram] 50 mg PO BID PRN 02/05/20 05/31/20 trazodone 150 mg PO HS 02/05/20 05/31/20 ipratropium bromide 2.5 ml INHALATION Q4H PRN 02/28/20 05/31/20 multivitamin 1 tab PO QAM 04/03/20 05/31/20 buspirone 5 mg PO BID 05/31/20 05/31/20 famotidine 20 mg PO HS 05/31/20 05/31/20 ferrous sulfate 325 mg PO BID 05/31/20 05/31/20 prednisone 10 mg PO DAILY 05/31/20 05/31/20 roflumilast [Daliresp] 500 mcg PO DAILY 05/31/20 05/31/20 tiotropium bromide [Spiriva with 1 cap INHALATION DAILY 05/31/20 05/31/20 HandiHaler] Previous Rx's Medication Instructions Recorded psyllium 1 pkt PO DAILY #30 ea 11/16/19 levalbuterol HCl 1.25 mg INHALATION Q4H PRN #25 ea 02/11/20 valacyclovir [Valtrex] 1,000 mg PO TID 7 Days #21 tab 05/29/20 Results & Data (ED) Vital Signs Vital Signs - 24 hr 05/31/20 11:25 05/31/20 12:01 05/31/20 12:03 Temperature 36.3 C L Temperature Source Oral Pulse Rate 80 82 78 Pulse Rate [Finger] 78 Pulse Rate from SpO2 Sensor 82 78 Respiratory Rate 20 15 18 Respiratory Effort / Characteristics Non-Labored Spontaneous Non-Labored Respiratory Depth Normal Normal Respiratory Pattern Regular Blood Pressure 168/87 H 180/82 H Blood Pressure [Right Arm] 180/82 H Blood Pressure Mean 114 114 Blood Pressure Mean [Right Arm] 114 Blood Pressure Position Sitting Pulse Oximetry 91 96 96 Oxygen Delivery Method Nasal Cannula Nasal Cannula Oxygen Flow Rate 6.5 6 Sepsis Recent Fever Within 48 Hours Yes Sepsis New/Unexplained Change in Mental Status N/A Sepsis Action Taken by Nursing No Action Required 05/31/20 12:30 05/31/20 12:31 Temperature Temperature Source Pulse Rate 75 76 Pulse Rate [Finger] Pulse Rate from SpO2 Sensor 75 76 Respiratory Rate 21 18 Respiratory Effort / Characteristics Respiratory Depth Respiratory Pattern Blood Pressure 159/88 H Blood Pressure [Right Arm] Blood Pressure Mean 111 Blood Pressure Mean [Right Arm] Blood Pressure Position Pulse Oximetry 98 98 Oxygen Delivery Method Oxygen Flow Rate Sepsis Recent Fever Within 48 Hours Sepsis New/Unexplained Change in Mental Status Sepsis Action Taken by Nursing Laboratory Data Result diagrams: 05/31/20 12:00 05/31/20 12:00 Lab Results 05/31/20 05/31/20 05/31/20 Range/Units 12:00 12:00 12:00 WBC 5.47 (4.8-10.8) K/uL RBC 3.63 L (4.2-5.4) M/uL Hgb 10.6 L (12.0-16.0) g/dL Hct 32.9 L (37-47) % MCV 90.6 (80-100) fL MCH 29.2 (25-34) pg MCHC 32.2 (32-36) g/dL RDW Std Deviation 49.4 H (36.4-46.3) fL RDW Coeff of Gregg 14.9 H (11.5-14.5) % Plt Count 135 (130-400) K/uL MPV 9.5 (7.4-10.4) fL Immature Gran % (Auto) 0.2 % Neut % (Auto) 60.1 % Lymph % (Auto) 30.0 % [place] % (Auto) 7.3 % Eos % (Auto) 2.0 % Baso % (Auto) 0.4 % Neut # (Auto) 3.29 (1.4-6.5) K/uL Lymph # (Auto) 1.64 (1.2-3.4) K/uL [place] # (Auto) 0.40 (0.11-0.59) K/uL Eos # (Auto) 0.11 (0-0.5) K/uL Baso # (Auto) 0.02 (0-0.2) K/uL Immature Gran # (Auto) 0.01 (0.00-0.02) K/uL PT 12.4 H (9.0-12.0) Seconds INR 1.2 H (0.9-1.1) APTT 25.4 (21.0-31.0) Seconds PTT Ratio 0.9 Sodium 148 H (136-145) mmol/L Potassium 3.0 L D (3.5-5.1) mmol/L Chloride 114 H (98-107) mmol/L Carbon Dioxide 27 (21-32) mmol/L Anion Gap 7.0 (3-11) BUN 10 (7-18) mg/dl Creatinine 0.87 (0.6-1.2) mg/dl Est Cr Clr Drug Dosing Not Reportable Est GFR ( Amer) 87.5 Est GFR (Non-Af Amer) 75.5 BUN/Creatinine Ratio 11.9 (10-20) Glucose 119 H (70-99) mg/dl Calcium 8.4 L (8.5-10.1) mg/dl Magnesium 2.1 (1.8-2.4) mg/dl Total Bilirubin 0.9 D (0.2-1) mg/dl AST 23 (15-37) U/L ALT 20 (12-78) U/L Alkaline Phosphatase 89 (45-117) U/L Troponin I < 0.015 (0-0.045) ng/ml Total Protein 6.9 (6.4-8.2) gm/dl Albumin 2.8 L (3.4-5.0) gm/dl Globulin 4.1 H (2.5-4.0) gm/dl Albumin/Globulin Ratio 0.7 L (0.9-2) COVID-19 Eval Order SARS-CoV-2, RNA, NAAT (NEGATIVE) 05/31/20 05/31/20 Range/Units 12:42 12:42 WBC (4.8-10.8) K/uL RBC (4.2-5.4) M/uL Hgb (12.0-16.0) g/dL Hct (37-47) % MCV (80-100) fL MCH (25-34) pg MCHC (32-36) g/dL RDW Std Deviation (36.4-46.3) fL RDW Coeff of Gregg (11.5-14.5) % Plt Count (130-400) K/uL MPV (7.4-10.4) fL Immature Gran % (Auto) % Neut % (Auto) % Lymph % (Auto) % [place] % (Auto) % Eos % (Auto) % Baso % (Auto) % Neut # (Auto) (1.4-6.5) K/uL Lymph # (Auto) (1.2-3.4) K/uL [place] # (Auto) (0.11-0.59) K/uL Eos # (Auto) (0-0.5) K/uL Baso # (Auto) (0-0.2) K/uL Immature Gran # (Auto) (0.00-0.02) K/uL PT (9.0-12.0) Seconds INR (0.9-1.1) APTT (21.0-31.0) Seconds PTT Ratio Sodium (136-145) mmol/L Potassium (3.5-5.1) mmol/L Chloride (98-107) mmol/L Carbon Dioxide (21-32) mmol/L Anion Gap (3-11) BUN (7-18) mg/dl Creatinine (0.6-1.2) mg/dl Est Cr Clr Drug Dosing Est GFR ( Amer) Est GFR (Non-Af Amer) BUN/Creatinine Ratio (10-20) Glucose (70-99) mg/dl Calcium (8.5-10.1) mg/dl Magnesium (1.8-2.4) mg/dl Total Bilirubin (0.2-1) mg/dl AST (15-37) U/L ALT (12-78) U/L Alkaline Phosphatase (45-117) U/L Troponin I (0-0.045) ng/ml Total Protein (6.4-8.2) gm/dl Albumin (3.4-5.0) gm/dl Globulin (2.5-4.0) gm/dl Albumin/Globulin Ratio (0.9-2) COVID-19 Eval Order Covid19 [facility] SARS-CoV-2, RNA, NAAT NEGATIVE (NEGATIVE) Administered Medications Aspirin (Aspirin 81 Mg Ectab) 81 mg PO DAILY ZULLY Stop: 06/30/20 14:17 Last Admin: 05/31/20 15:55 Dose: 81 mg Documented by: [id number] Discontinued Medications Lorazepam (Ativan) 0.5 mg in 1 mls @ 1 mls/min IV NOW STA Stop: 05/31/20 15:24 Last Admin: 05/31/20 15:54 Dose: 1 mls/min Documented by: [id number] Potassium Chloride (Potassium Chloride Crtab 20 Meq Tabcr) 40 meq PO NOW STA Stop: 05/31/20 12:55 Last Admin: 05/31/20 13:27 Dose: 40 meq Documented by: [id number] Potassium Chloride (Potassium Chloride Crtab 20 Meq Tabcr) 40 meq PO ONE ONE Stop: 05/31/20 16:01 Last Admin: 05/31/20 15:54 Dose: 40 meq Documented by: [id number] Discharge Plan Visit Data Chief Complaint: Khan's Palsy Symptoms Stated Complaint: NUMBNESS IN RIGHT SIDE OF FACE EXTENDING TO ARM ED Provider: Higinio Hi Discharge Problem: Arm paresthesia, right, Acute hypokalemia, Acute hypernatremia Patient Disposition: Admitted As Inpatient Discharge Instructions Interventions: ED Discharge Assessment Last Done: 05/31/20 13:32
[2020-05-31 12:10] LABS: Basophils # (auto) 0.02 K/uL (0-0.2); Basophils % (auto) 0.4 %; Eosinophils # (auto) 0.11 K/uL (0-0.5); Hematocrit (blood only) 32.9 % (37-47); Hemoglobin 10.6 g/dL (12.0-16.0); Immature Granulocytes # (auto) 0.01 K/uL (0.00-0.02); Immature Granulocytes % (auto) 0.2 %; Lymphocytes # (auto) 1.64 K/uL (1.2-3.4); Mean Corpuscular Hemoglobin 29.2 pg (25-34); Mean Corpuscular Hgb Conc 32.2 g/dL (32-36); Mean Corpuscular Volume 90.6 fL (80-100); Mean Platelet Volume 9.5 fL (7.4-10.4); Monocytes % (auto) 7.3 %; Neutrophils # (auto) 3.29 K/uL (1.4-6.5); Neutrophils % (auto) 60.1 %; Platelet Count 135 K/uL (130-400); RDW Coefficient of Variation 14.9 % (11.5-14.5); RDW Standard Deviation 49.4 fL (36.4-46.3); Red Blood Count 3.63 M/uL (4.2-5.4); White Blood Count 5.47 K/uL (4.8-10.8)
--- NOTE | 2020-05-31 12:19 | XRay Report ---
XR chest 1V portable CLINICAL HISTORY: Stroke Like Symptoms COMPARISON STUDY: Chest CT May 06, 2020. Chest radiograph May 29, 2020. FINDINGS: Lung volumes are normal. There is no pneumothorax or pleural effusion. There is mild reticu lonodular interstitial thickening. This has slightly increased. Mild to moderate enlargement of the c ardiac silhouette is noted. No lobar consolidation is present. Calcified mediastinal lymph nodes are incidentally noted. IMPRESSION: 1. Reticulonodular interstitial thickening which could reflect pulmonary edema or an infectious proce ss. Mild right basilar opacity. 2. Mild to moderate enlargement of the cardiac silhouette. ACT 112: Negative or not required by law. Electronically signed by: Len Mayfield M.D. 05/31/2020 12:18 PM
[2020-05-31 12:23] LABS: INR 1.2 (0.9-1.1); Partial Thromboplastin Ratio 0.9; Partial Thromboplastin Time 25.4 Seconds (21.0-31.0); Prothrombin Time 12.4 Seconds (9.0-12.0)
--- NOTE | 2020-05-31 12:33 | CT Scan Report ---
CT OF THE HEAD WITHOUT CONTRAST CLINICAL HISTORY: Stroke Like Symptoms COMPARISON STUDY: Head CT, CTA of the head and MRI of the brain May 29, 2020. CT DOSE: 614.27 mGy.cm TECHNIQUE: Helical axial images of the head were obtained without IV contrast. Automated exposure con trol was utilized for the study. A dose lowering technique was utilized adhering to the principles o f ALARA. FINDINGS: No acute intracranial hemorrhage, midline shift or mass effect is present. The ventricular system is unremarkable. The basal cisterns are patent. No extra-axial collections are present. There are no findings to suggest acute dural sinus thrombosis or acute territorial infarct. No significant calvarial abnormalities are present. Visualized portions of the sinuses and mastoid air cells are susanne ar. IMPRESSION: No acute intracranial findings. ACT 112: Negative or not required by law. Electronically signed by: Len Mayfield M.D. 05/31/2020 12:32 PM
[2020-05-31 12:47] LABS: Alanine Aminotransferase 20 U/L (12-78); Albumin Globulin Ratio 0.7 (0.9-2); Albumin Level 2.8 gm/dl (3.4-5.0); Alkaline Phosphatase 89 U/L (45-117); Aspartate Aminotransferase 23 U/L (15-37); BUN Creatinine Ratio 11.9 (10-20); Bilirubin,Total 0.9 mg/dl (0.2-1); Blood Urea Nitrogen 10 mg/dl (7-18); Calcium 8.4 mg/dl (8.5-10.1); Carbon Dioxide 27 mmol/L (21-32); Chloride 114 mmol/L (98-107); Est GFR (African American) 87.5; Est GFR (Non-African American) 75.5; Globulin 4.1 gm/dl (2.5-4.0); Glucose 119 mg/dl (70-99); Magnesium 2.1 mg/dl (1.8-2.4); Sodium 148 mmol/L (136-145); Total Protein 6.9 gm/dl (6.4-8.2); Troponin I < 0.015 ng/ml (0-0.045)
[2020-05-31] MEDS ORDERED: POTASSIUM CHLORIDE CRTAB 20 MEQ TABCR PO STA (12:54)
[2020-05-31] MEDS ORDERED: PHARMACIST DISCHARGE MED REC CONSULT PRN (13:00)
--- NOTE | 2020-05-31 13:28 | History & Physical Report ---
Date of Service May 31, 2020 Assessment & Plan (1) Stroke-like symptom: This is a 54-year-old female who has significant past medical history of failure on 6 L of O2, COPD, cirrhosis, hepatic encephalopathy, MELVI chronic diastolic CHF, HTN, HLD, bipolar disorder history of migraine history of alcohol abuse, anemia of chronic disease, history of tobacco abuse, generalized anxiety disorder, GERD, hepatopulmonary syndrome who presents to ED secondary to right- sided numbness x1 day. Work up in ED unrevealing. Repeat Heat CT negative for acute abnormality. Signs/sx given ipsilateral do not coordinate with that of CVA; nonetheless will admit for stroke/neuro work up. Sx less likely related to bells palsy as there is no 7th cranial nerve deficit. Possible Migraine given sx of migraine 2 days ago. Prior MRI reveals small vessel disease, ? TIA Admit to PCU repeat MRI but this time with contrast consult neurology will start ASA 81mg daily and Lipitor 40mg daily, monitor LFTS passed dysphagia screen - proceed with oral intake/po meds PT/OT/ST case management consulted continue home meds replace electrolytes (2) Electrolyte abnormality: Hyponatremia, sodium 148, hypokalemia potassium 3.0 Received 40 M EQ p.o. in ED will order additional 40 M EQ at 1600 Repeat in a.m. (3) Chronic respiratory failure with hypoxia and hypercapnia: (4) COPD (chronic obstructive pulmonary disease): no acute exacerbation continue O2, symbicort, daliresp, spirivia on prednisone 10mg daily follows Aura Dietrich (5) Chronic diastolic CHF (congestive heart failure): echo 05/14/20 EF 60 to 65%, left ventricular diastolic function normal, AV sclerosis without stenosis no evidence of pulmonary hypertension, intrapulmonary shunt noted Currently on Lasix, Aldactone and potassium secondary to cirrhosis Daily weights, strict I&O Currently euvolemic (6) HTN, goal below 140/90: Blood pressure mildly elevated, allow for permissive hypertension in setting of stroke work-up continue Lasix, Aldactone, and losartan (7) Alcoholic cirrhosis: History of hepatic encephalopathy Continue Lasix, Aldactone, thiamine, folic acid and lactulose Monitor for signs and symptoms of encephalopathy Currently compensated (8) Bipolar 1 disorder: Also depression and anxiety Mood stable Continue Lamictal, Zoloft, Buspar and trazodone (9) Anemia, chronic disease: h/h stable at 10.6 and 32.9 No signs or symptoms of bleeding (10) Abnormal CT scan, neck: Neck CTA from 05/29/20 revealed thyroid nodules and nodule of L parotid gland CT: 5. Bilateral thyroid nodules measure up to 1.5 cm. Nonemergent thyroid ultrasound is recommended in follow-up. 6. A 10 mm nodule is seen within the left parotid gland. Nonemergent ENT follow- up is recommended. recommend non emergent follow up at discharge (11) DVT prophylaxis: SCD/TEDS for now until stroke work up complete consider SQ Lovenox tomorrow if no concern for bleeding Disposition: admit to PCU for stroke work up Follow up: PCP Dr. Crane upon discharge; follow up non emergent studies for thyroid and parotid gland Pt was seen and examined in collaboration with Dr. Zapata, please see addendum History of Present Illness Chief Complaint: R sided numbness x 1 day. Primary Care Provider: Rangel Crane, This is a 54-year-old female who has significant past medical history of fail ure on 6 L of O2, COPD, cirrhosis, hepatic encephalopathy, MELVI chronic diastolic CHF, HTN, HLD, bipolar disorder history of migraine history of alcohol abuse, anemia of chronic disease, history of tobacco abuse, generalized anxiety disorder, GERD, hepatopulmonary syndrome who presents to ED secondary to right- sided numbness x1 day. She states that she woke up this morning with numbness to right cheek as well as inability to feel right arm or leg. She denies any lianet weakness, slurred speech or falling. She did feel that the right side of her face was swollen and she had some drool coming out right side. She further complains of lightheadedness and dizziness but no syncope. Of significance she was seen and evaluated in ED on 05/29 secondary to right facial droop. At that time she underwent a stroke evaluation and had CTA of head and neck which was not clinically significant. She also had MRI brain which revealed likely small vessel disease but no acute CVA. 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 She did begin this but without improvement of symptoms. At that time she also had a headache on the right side of her head. History of migraine which felt similar. She was treated with migraine cocktail which improved headache. She denies any recent illness, fever, chills, sweats, headache, change in vision, change in hearing, difficulty swallowing, chest pain, palpitations, nausea, vomiting, abdominal pain, dysuria, increased urgency or frequency with urination, melena or hematochezia. She does have chronic shortness of breath secondary to COPD but feels is unchanged. She continues to remain abstinent from smoking/tobacco and alcohol. She denies any lower extremity swelling but does feel she does have some distention to abdomen. She has been having 2-3 bowel movements daily and has been compliant with her lactulose. She lives at home with her and son. Her daughter is her photo technician and takes care of her medications. She did take her morning medications. Allergies Allergy/AdvReac Type Severity Reaction Status Date / Time strawberry Allergy Severe HIVES Verified 05/31/20 12:19 bee venom protein (honey bee) Allergy Unknown HIVES AND Verified 05/31/20 12:19 SWELLING pollen extracts Allergy Unknown UNKNOWN Verified 05/31/20 12:19 No Known Drug Allergies Allergy Unknown Verified 05/31/20 12:19 Spring Tar Allergy Mild Unknown Uncoded 05/31/20 12:19 Home Medications Medication Instructions Recorded Confirmed Type fluticasone propionate [Flonase 2 spray INTRANASAL DAILY PRN 02/22/18 05/31/20 History Allergy Relief] furosemide [Lasix] 40 mg PO BID 02/22/18 05/31/20 History pantoprazole [Protonix] 40 mg PO BID 02/22/18 05/31/20 History ropinirole [Requip] 0.25 mg PO HS 02/22/18 05/31/20 History albuterol sulfate 90 mcg/actuation 2 puffs INH Q6H PRN 11/28/18 05/31/20 History aerosol inhaler budesonide-formoterol HFA 160 2 puffs INH BID 11/28/18 05/31/20 History mcg-4.5 mcg/actuation aerosol inhaler folic acid 1 mg tablet 1 mg PO QAM tab 11/28/18 05/31/20 History losartan 25 mg tablet 25 mg PO QAM tab 11/28/18 05/31/20 History magnesium oxide 400 mg PO BID 11/28/18 05/31/20 History montelukast 10 mg tablet 10 mg PO HS tab 11/28/18 05/31/20 History potassium chloride 10 mEq 10 meq PO QAM tab 11/28/18 05/31/20 History tablet,extended release rifaximin 550 mg tablet 550 mg PO BID 11/28/18 05/31/20 History thiamine HCl (vitamin B1) 100 mg 100 mg PO QAM tab 11/28/18 05/31/20 History tablet dextromethorphan-guaifenesin 30 1 tab PO Q12H PRN 12/13/18 05/31/20 History mg-600 mg tablet extended [id number] hr lactulose 10 gram/15 mL oral 60 ml PO QID ml 12/13/18 05/31/20 History solution spironolactone 100 mg tablet 150 mg PO QAM tab 01/25/19 05/31/20 History hydroxyzine HCl 25 mg PO BID PRN 04/27/19 05/31/20 History lamotrigine 150 mg PO HS 11/13/19 05/31/20 History sertraline 75 mg PO QAM 11/13/19 05/31/20 History psyllium 1 pkt PO DAILY #30 ea 11/16/19 05/31/20 Rx dicyclomine 20 mg PO BID 02/05/20 05/31/20 History polyethylene glycol 3350 [Miralax] 17 g PO DAILY PRN 02/05/20 05/31/20 History tramadol [Ultram] 50 mg PO BID PRN 02/05/20 05/31/20 History trazodone 150 mg PO HS 02/05/20 05/31/20 History levalbuterol HCl 1.25 mg INHALATION Q4H PRN #25 ea 02/11/20 05/31/20 Rx ipratropium bromide 2.5 ml INHALATION Q4H PRN 02/28/20 05/31/20 History multivitamin 1 tab PO QAM 04/03/20 05/31/20 History valacyclovir [Valtrex] 1,000 mg PO TID 7 Days #21 tab 05/29/20 05/31/20 Rx buspirone 5 mg PO BID 05/31/20 05/31/20 History famotidine 20 mg PO HS 05/31/20 05/31/20 History ferrous sulfate 325 mg PO BID 05/31/20 05/31/20 History prednisone 10 mg PO DAILY 05/31/20 05/31/20 History roflumilast [Daliresp] 500 mcg PO DAILY 05/31/20 05/31/20 History tiotropium bromide [Spiriva with 1 cap INHALATION DAILY 05/31/20 05/31/20 History HandiHaler] Past Med/Surg History Medical History (Updated 05/31/20 @ 16:56 by Higinio Hi DO) Alcoholic cirrhosis Anemia, chronic disease Anxiety Asthma Bipolar 1 disorder Chronic diastolic CHF (congestive heart failure) COPD (chronic obstructive pulmonary disease) H/O alcohol abuse HTN, goal below 140/90 Hx of migraines MELVI (obstructive sleep apnea) Sleep apnea Tobacco use disorder Surgical History History of spinal fusion History of total right knee replacement S/P cholecystectomy S/P tubal ligation Family History Sister Diabetes Mother Hodgkin lymphoma Father Brain tumor Social History Smoking Status: Former smoker Tobacco Type: Cigarettes Cigarettes Per Day: 10; Second Hand Exposure: No; Hx Alcohol Use: No Hx Substance Use: No Preferred Language: Hungarian Communication Ability: Effective 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: No Beliefs That Will Affect Care: None marital status: Current Living Situation: Spouse How many Children do You have: 4 Other Information That Helps Us Care for You: No Feels Safe at Home: Yes Safety Concerns: Feels Safe At This Time Assistive Devices: Glasses and Oxygen - Continuous Review of Systems Review of Systems: All systems reviewed & are unremarkable except as noted in HPI & below Results & Data Results & Data ([facility]) Vital Signs (Past 12 Hours) Vital Signs Temp Pulse Pulse Resp BP BP Pulse Ox 05/31/20 12:31 76 18 98 05/31/20 12:30 75 21 159/88 H 98 05/31/20 12:03 78 78 18 180/82 H 96 05/31/20 12:01 82 15 180/82 H 96 05/31/20 11:25 36.3 C L 80 20 168/87 H [address]: FINDINGS: No acute intracranial hemorrhage, midline shift or mass effect is present. The ventricular system is unremarkable. The basal cisterns are patent. No extra-axial collections are present. There are no findings to suggest acute dural sinus thrombosis or acute territorial infarct. No significant calvarial abnormalities are present. Visualized portions of the sinuses and mastoid air cells are clear. IMPRESSION: No acute intracranial findings. CXR: IMPRESSION: 1. Reticulonodular interstitial thickening which could reflect pulmonary edema or an infectious process. Mild right basilar opacity. 2. Mild to moderate enlargement of the cardiac silhouette. 05/29/20 Brain MRI: IMPRESSION: 1. No acute intracranial findings. 2. Multiple small white matter T2 hyperintense foci which favor small vessel disease. NECK CTA/Head CTA: IMPRESSION: 1. There is no hemorrhage, mass effect, or evidence of acute territorial ischemia by CT criteria note angiographic phase technique 2. Unremarkable CT angiogram of the brain. 3. Calcified plaque causes less than 50% stenosis at the origin of the left internal carotid artery. 4. Otherwise unremarkable CT angiogram of the neck. 5. Bilateral thyroid nodules measure up to 1.5 cm. Nonemergent thyroid ultrasound is recommended in follow-up. 6. A 10 mm nodule is seen within the left parotid gland. Nonemergent ENT follow- up is recommended. Medications Administered ECG Rate (beats per minute): 75 Rhythm: normal sinus COVID-19 Results Results COVID-19 Adm Lab Results: RBC 3.63 M/uL (4.2-5.4) L 05/31/20 WBC 5.47 K/uL (4.8-10.8) 05/31/20 Hgb 10.6 g/dL (12.0-16.0) L 05/31/20 Hct 32.9 % (37-47) L 05/31/20 Plt Count 135 K/uL (130-400) 05/31/20 Neutrophils (%) (Auto) 60.1 % 05/31/20 Lymphocytes (%) (Auto) 30.0 % 05/31/20 Monocytes # (Auto) 0.40 K/uL (0.11-0.59) 05/31/20 Eosinophils # (Auto) 0.11 K/uL (0-0.5) 05/31/20 Immature Granulocyte % (Auto) 0.2 % 05/31/20 Neutrophils # (Auto) 3.29 K/uL (1.4-6.5) 05/31/20 Lymphocytes # (Auto) 1.64 K/uL (1.2-3.4) 05/31/20 Monocytes # (Auto) 0.40 K/uL (0.11-0.59) 05/31/20 Eosinophils # (Auto) 0.11 K/uL (0-0.5) 05/31/20 Basophils # (Auto) 0.02 K/uL (0-0.2) 05/31/20 Immature Granulocyte # (Auto) 0.01 K/uL (0.00-0.02) 05/31/20 Na 148 mmol/L (136-145) H 05/31/20 K 3.0 mmol/L (3.5-5.1) L 05/31/20 Cl 114 mmol/L (98-107) H 05/31/20 CO2 27 mmol/L (21-32) 05/31/20 Anion Gap 7.0 (3-11) 05/31/20 BUN 10 mg/dl (7-18) 05/31/20 Creatinine 0.87 mg/dl (0.6-1.2) 05/31/20 BUN/Creatinine Ratio 11.9 (10-20) 05/31/20 Glucose Level 119 mg/dl (70-99) H 05/31/20 Ca 8.4 mg/dl (8.5-10.1) L 05/31/20 Total Bilirubin 0.9 mg/dl (0.2-1) 05/31/20 AST/SGOT 23 U/L (15-37) 05/31/20 ALT/SGPT 20 U/L (12-78) 05/31/20 Alkaline Phosphatase 89 U/L (45-117) 05/31/20 Total Protein 6.9 gm/dl (6.4-8.2) 05/31/20 Albumin 2.8 gm/dl (3.4-5.0) L 05/31/20 Globulin 4.1 gm/dl (2.5-4.0) H 05/31/20 Albumin/Globulin Ratio 0.7 (0.9-2) L 05/31/20 Troponin I < 0.015 ng/ml (0-0.045) 05/31/20 PTT 25.4 Seconds (21.0-31.0) 05/31/20 INR 1.2 (0.9-1.1) H 05/31/20 SARS-CoV-2, RNA, NAAT NEGATIVE (NEGATIVE) 05/31/20 Chest X-Ray 05/31/20 Code Status & VTE Plan Code Status Full Code VTE Prophylaxis Plan VTE Prophylaxis will be ordered: Yes Supervising Physician Co-Signing Physician Notes Attending Addendum: care coordinated with PIPPA Zamudio please refer to her notes for full details, I agree with her notes patient seen and examined, records reviewed by myself as well on exam, patient seen resting in bed, comfortable, not in distress states she has been having productive cough at home, with fever of 100.5, associated with mild dyspnea reports right side of the face still feels somewhat numb (50%) as well as right hand and foot (pins and needles) no other symptoms VS noted and reviewed oriented x 3, not in distress, speaks in sentences with no effort nor accessory muscle use normal rate, regular rhythm, no murmurs diminished breath sounds bilaterally, no rales/wheezing non distended, soft, nontender no bipedal edema, erythema, warmth no neuro deficits WBC 5.4 Hg 10.6 Crea 0.87 ASSESSMENT AND PLAN STROKE LIKE SYMPTOMS ipsilateral right face, R hand and R foot numbness Brain MRI no acute process CT angio 05/29: no stenosis ASA 81mg Neuro Consulted POSSIBLE MILD COPD EXACERBATION ACUTE BRONCHITIS VS PNEUMONIA R/O COVID 19 CXR possible bilateral lower lobe infiltrates Prednisone 40mg po daily, Nebs, Doxycycline other diagnoses and plan of care as per PIPPA Soler notes Flaco Zapata MD
[2020-05-31] MEDS ORDERED: MAGNESIUM HYDROXIDE SUSP 30 ML UDC PO PRN (14:18)
[2020-05-31] MEDS ORDERED: DEXTROMETHORPHAN GUAIFENESIN PO PRN (14:18)
[2020-05-31] MEDS ORDERED: ALBUTEROL HFA 8 GM INHALER INH PRN (14:18)
[2020-05-31] MEDS ORDERED: ALUMINUM/MAGNESIUM SUSP 30 ML UDC PO PRN (14:18)
[2020-05-31] MEDS ORDERED: IPRATROPIUM BROMIDE NEB SOLN 0.02% 2.5 ML VIAL INH PRN (14:18)
[2020-05-31] MEDS ORDERED: ONDANSETRON INJ 2 MG/ML 2 ML VIAL IV PRN (14:18)
[2020-05-31] MEDS ORDERED: LEVALBUTEROL 1.25MG/0.5ML NEB INH PRN (14:18)
[2020-05-31] MEDS ORDERED: POLYETHYLENE (MIRALAX) 17 GM PACK PO PRN (14:18)
[2020-05-31] MEDS ORDERED: FLUTICASONE PROPIONATE NA SPR 16 GM BTL NAE PRN (14:18)
[2020-05-31 15:10] LABS: Appearance Urine Clear (Clear); Bilirubin Urine Negative (Negative); Blood Urine Negative (Negative); Color Urine Yellow; Glucose Urine UA Negative (Negative); Ketones Urine Negative (Negative); Leukocyte Esterase Urine Negative (Negative); Nitrite Urine Negative (Negative); Protein Urine Negative (Negative); Specific Gravity Urine 1.018 (1.000-1.030); Urobilinogen Urine Negative (Negative)
[2020-05-31] MEDS ORDERED: LORazepam 0.5 MG/1 ML VIAL IV STA (15:23)
[2020-05-31] MEDS: ASPIRIN 81 MG ECTAB PO SCH (15:55)
--- NOTE | 2020-05-31 15:58 | Communication Note ---
Date of Service: May 31, 2020 Neurology has been consulted on Marcia today for evaluation of several days of right facial numbness now involving the right arm and leg. She has a history of migraine headaches and prior to the onset of right facial numbness did have a headache similar to her migraines which has not apparently been associated with aura in the past. Evaluation in the emergency room on 05/29 included extensive imaging studies with CT of the head CT angiography and MRI done without contrast of the brain. The latter showed evidence for some small vessel changes with no acute infarction was seen on diffusion imaging Because of some apparent right facial asymmetry diagnosis of the Khan's palsy was considered and she was discharged on prednisone and acyclovir Basic laboratory studies including testing for covid 19 today have been unremarkable or consistent with her known chronic issues She returned today with increasing numbness beyond the face now involving the right arm and leg and has been admitted for further assessment, second MRI this time with contrast and neurologic consultation. Aspirin has been added to her drug regimen apparently she is not on any form of antiplatelet agents in the past An outpatient echocardiogram done on May 14 revealed evidence for a probable intrapulmonary shunt related to her current obstructive airways disease but no ventricular function valvular structures etc. were unremarkable there was no obvious source of potential emboli EKG does not show evidence of atrial fibrillation when she will be admitted for monitoring Past medical history reveals chronic respiratory failure with hypoxia and hypercapnia, parotid gland cyst, chronic asthma and COPD, hypertension, history of hematochezia, COPD, chronic diastolic heart failure, anxiety and bipolar disease chronic tobacco use disorder, history of alcohol abuse, history of migraines, sleep apnea, anemia of chronic disease, and surgically a cholecystectomy tubal ligation right knee replacement Home medications include albuterol budesonide formeterol, BuSpar, dextromethrphan-guafenesin, dicyclomine, famotidine, ferrous sulfate, fluticasone folic acid, Lasix, hydroxyzine, ipratropium bromide, lactulose, mental milligrams bedtime, needed butyryl losartan, magnesium Singulair, multivitamins, Protonix, polyethylene glycol, potassium, prednisone taper, psyllium, rifaximin, Requip, sertraline, spironolactone, thiamine, tramadol, trazodone, valacyclovir She has no known drug allergies Family history and social history are as per the electronic medical record will not be reiterated here Review of systems recorded in the chart revealed a headache right-sided numbness and otherwise nothing significant neurologically other than the prior history of migraines and the potential diagnosis of Khan's palsy. I did not examine the patient today but am reviewing her chart and have gone through outpaitent records and current inpatient imaging studies and laboratory studies recorded in the medicl record and the examinations performed by emergency room personnel and admitting team Basically with exception of a mild right facial asymmetry and some subjective numbness there are no apparent significant neurologic deficits Certainly this could reflect an evolving small vessel event. The patient certainly is at risk for small vessel disease with her protean list of medical problems. With numbness and tingling involving right arm and leg in addition to face a Khan's palsy is probably not going to be the diagnosis. Conceivably this is a protracted migrainous aura The presence of a pulmonary shunt on recent echocardiogram. Conceivably could cause a paradoxical embolism less the temporal nature of her clinical presentation suggests an evolving process rather than an embolic event and favors localized small vessel disease if indeed this is not vasospastic I agree completely with starting aspirin. Dual antiplatelet therapy may actual ly end up being the best if the repeat MRI shows an infarction that was missed on the first scan 2 days ago I would also suggest checking her lower extremities for DVT. The pulmonary shunt demonstrated by echo would indicate that a clot originating in the leg veins could easily enter the left circulation and produce an ischemic event in the brain. As noted above however the history suggests an evolutionary process rather than acute event and a paradoxical embolism remains a very remote consideration but does need to be considered as the presence of a DVT would certainly bring to mind treatment with Coumadin or one of the novel anticoagulants We will be seeing her on rounds tomorrow for an exam,review of the history from the patient directly, will review the outstanding testing make further recommendations at that time Ronald Shipman MD
[2020-05-31] MEDS ORDERED: POTASSIUM CHLORIDE CRTAB 20 MEQ TABCR PO ONE (16:00)
[2020-05-31] MEDS ORDERED: GADOBUTROL 65ML VIAL IV ONE (16:55)
--- NOTE | 2020-05-31 17:08 | Ultrasound Report ---
BILATERAL LOWER EXTREMITY VENOUS DOPPLER CLINICAL HISTORY: stroke like symptoms, r/o DVT COMPARISON STUDY: Bilateral lower extremity venous Doppler ultrasound February 07, 2020. TECHNIQUE: Sonography of the deep venous system of the bilateral lower extremities was performed. Co mpression and augmentation were evaluated. FINDINGS: The bilateral common femoral, superficial femoral and popliteal veins were compressible. A ugmentation was normal. Flow was shown within the deep calf vessels. IMPRESSION: No evidence of deep venous thrombus within the bilateral lower extremities. ACT 112: Negative or not required by law. Electronically signed by: Len Mayfield M.D. 05/31/2020 5:07 PM
--- NOTE | 2020-05-31 17:08 | Magnetic Resonance Report ---
MRI OF THE BRAIN WITHOUT AND WITH IV CONTRAST CLINICAL HISTORY: Stroke like symptoms. Right-sided weakness. COMPARISON STUDY: MRI of the brain May 29, 2020. Head CT performed earlier today. TECHNIQUE: Utilizing a 1.5 Loretta magnet and dedicated coil, multiplanar, multiecho imaging of the br ain was performed pre and postcontrast administration. IV administration of 10.5 mL of Gadavist cont rast was uneventful. FINDINGS: This exam is moderately compromised by motion artifact. There are no foci of restricted dif fusion to suggest acute infarct. No acute intracranial hemorrhage, midline shift or mass effect is pr esent. Brain volume is normal. Ventricular system is normal. Basilar cisterns are patent. There are n o extra-axial fluid collections. Numerous small white matter T2 hyperintense foci are noted. Flow-voi ds for the major intracranial vessels are present. Orbits are grossly unremarkable. There is no evide nce for sinusitis. There is no mastoid fluid. IMPRESSION: 1. No acute intracranial findings. 2. Exam moderately compromised by motion artifact. 3. Numerous small white matter T2 hyperintense foci which favor small vessel disease. 4. No intracranial mass or pathologic enhancement. ACT 112: Negative or not required by law. Electronically signed by: Len Mayfield M.D. 05/31/2020 5:07 PM
[2020-05-31] MEDS: LACTULOSE SYRUP 10 GM/15 ML BTL 960 ML PO SCH ×2 (17:37→20:36)
[2020-05-31] MEDS: FUROSEMIDE 40 MG TAB PO SCH (17:38)
[2020-05-31] MEDS: FERROUS SULFATE 325 MG TAB PO SCH (17:38)
[2020-05-31] MEDS: ACETAMINOPHEN 325 MG TAB PO PRN (17:43)
[2020-05-31] MEDS ORDERED: XOPENEX/ATROVENT 1.25mg/0.5MG NEB COMBO NEB SCH (19:00)
[2020-05-31] MEDS: IPRATROPIUM BROMIDE NEB SOLN 0.02% 2.5 ML VIAL INH SCH (19:20)
[2020-05-31] MEDS: LEVALBUTEROL 1.25MG/0.5ML NEB INH SCH (19:21)
[2020-05-31 19:53] LABS: Influenza A virus by PCR Negative (Neg); Influenza B virus by PCR Negative (Neg); RSV by PCR Negative (Neg); SARS CoV2 RNA(COVID-19) InHosp NEGATIVE (Negative)
[2020-05-31] MEDS: MONTELUKAST SODIUM 10 MG TABLET PO SCH (20:31)
[2020-05-31] MEDS: lamoTRIgine 100 MG TAB PO SCH (20:32)
[2020-05-31] MEDS: traZODone HCL 50 MG TAB PO SCH (20:33)
[2020-05-31] MEDS: PANTOprazole 40 MG TAB PO SCH (20:34)
[2020-05-31] MEDS: DICYCLOMINE HCL 20 MG TAB PO SCH (20:34)
[2020-05-31] MEDS: FAMOTIDINE 20 MG TAB PO SCH (20:34)
[2020-05-31] MEDS: busPIRone 5 MG TAB PO SCH (20:34)
[2020-05-31] MEDS: rifAXIMin 550 MG TABLET PO SCH (20:34)
[2020-05-31] MEDS: rOPINIRole HCL 0.25 MG TABLET PO SCH (20:34)
[2020-05-31] MEDS: predniSONE 20 MG TAB PO SCH (20:34)
[2020-05-31] MEDS: MAGNESIUM OXIDE 400 MG TAB PO SCH (20:34)
[2020-05-31] MEDS: DOXYCYCLINE HYCLATE 100 MG CAP PO SCH (21:28)
[2020-06-01] MEDS: LEVALBUTEROL 1.25MG/0.5ML NEB INH SCH ×4 (00:20→19:44)
[2020-06-01] MEDS: IPRATROPIUM BROMIDE NEB SOLN 0.02% 2.5 ML VIAL INH SCH ×4 (00:20→19:44)
[2020-06-01 06:00] LABS: Basophils # (auto) 0.02 K/uL (0-0.2); Basophils % (auto) 0.4 %; Eosinophils # (auto) 0.04 K/uL (0-0.5); Eosinophils % (auto) 0.8 %; Hematocrit (blood only) 31.5 % (37-47); Hemoglobin 10.1 g/dL (12.0-16.0); Immature Granulocytes # (auto) 0.01 K/uL (0.00-0.02); Immature Granulocytes % (auto) 0.2 %; Lymphocytes # (auto) 0.62 K/uL (1.2-3.4); Lymphocytes % (auto) 12.7 %; Mean Corpuscular Hgb Conc 32.1 g/dL (32-36); Mean Corpuscular Volume 90.5 fL (80-100); Mean Platelet Volume 9.4 fL (7.4-10.4); Monocytes # (auto) 0.23 K/uL (0.11-0.59); Monocytes % (auto) 4.7 %; Neutrophils # (auto) 3.98 K/uL (1.4-6.5); Neutrophils % (auto) 81.2 %; Platelet Count 140 K/uL (130-400); RDW Coefficient of Variation 15.1 % (11.5-14.5); RDW Standard Deviation 49.1 fL (36.4-46.3); Red Blood Count 3.48 M/uL (4.2-5.4)
[2020-06-01 06:26] LABS: BUN Creatinine Ratio 11.3 (10-20); Calcium 8.1 mg/dl (8.5-10.1); Creatinine Clr Calc Pharmacy 109.9 ml/min; Est GFR (African American) 104.7; Est GFR (Non-African American) 90.4; Potassium 4.4 mmol/L (3.5-5.1); Prealbumin 10.2 mg/dl (20-40)
[2020-06-01 06:37] LABS: Estimated Average Glucose 108 mg/dl; Hemoglobin A1C 5.4 % (4.5-5.6)
[2020-06-01] MEDS: PSYLLIUM 58.6% POWDER PACKET PO SCH (08:08)
[2020-06-01] MEDS: busPIRone 5 MG TAB PO SCH ×2 (08:08→21:44)
[2020-06-01] MEDS: LOSARTAN POTASSIUM 25 MG TAB PO SCH (08:08)
[2020-06-01] MEDS: PANTOprazole 40 MG TAB PO SCH ×2 (08:08→21:44)
[2020-06-01] MEDS: SPIRONOLACTONE 100 MG TAB PO SCH (08:08)
[2020-06-01] MEDS: SERTRALINE HCL 50 MG TABLET PO SCH (08:08)
[2020-06-01] MEDS: rifAXIMin 550 MG TABLET PO SCH ×2 (08:08→21:44)
[2020-06-01] MEDS: MAGNESIUM OXIDE 400 MG TAB PO SCH ×2 (08:08→21:41)
[2020-06-01] MEDS: DOXYCYCLINE HYCLATE 100 MG CAP PO SCH ×2 (08:08→21:42)
[2020-06-01] MEDS: FERROUS SULFATE 325 MG TAB PO SCH ×2 (08:09→16:29)
[2020-06-01] MEDS: ROFLUMILAST 500 MCG TAB PO SCH (08:09)
[2020-06-01] MEDS: DICYCLOMINE HCL 20 MG TAB PO SCH ×2 (08:09→21:43)
[2020-06-01] MEDS: FUROSEMIDE 40 MG TAB PO SCH ×2 (08:09→16:29)
[2020-06-01] MEDS: ASPIRIN 81 MG ECTAB PO SCH (08:09)
[2020-06-01] MEDS: THIAMINE HCL 100 MG TAB PO SCH (08:09)
[2020-06-01] MEDS: FOLIC ACID 1 MG TAB PO SCH (08:09)
[2020-06-01] MEDS: MULTIVITAMIN TAB PO SCH (08:09)
[2020-06-01] MEDS: predniSONE 20 MG TAB PO SCH (08:09)
[2020-06-01] MEDS: ATORVASTATIN 40 MG TAB PO SCH (08:09)
[2020-06-01] MEDS: LACTULOSE SYRUP 10 GM/15 ML BTL 960 ML PO SCH ×4 (08:10→21:41)
[2020-06-01] MEDS: UMECLIDINIUM BROMIDE 62.5MCG/BLISTER 7 PUFFS/INHALER INH SCH (08:10)
[2020-06-01] MEDS: POTASSIUM CHLORIDE 10 MEQ TABCR PO SCH (08:10)
[2020-06-01] MEDS: FLUTICASONE/VILANTEROL 200/25MCG 14 PUFFS/INHALER INH SCH (08:11)
[2020-06-01] MEDS ORDERED: predniSONE 10 MG TABLET PO SCH (09:00)
--- NOTE | 2020-06-01 11:50 | Fluoroscopy Report ---
FL video swallow HISTORY: r/o aspiration TECHNIQUE: Video fluoroscopic evaluation of swallowing was performed in the AP and lateral projection s by the speech pathology staff. The patient is fed nectar-thick and thin liquid barium, a barium coa brad wafer, and barium pudding. FLUOROSCOPY TIME: 2.1 minutes. A cine loop submitted. COMPARISON STUDY: None. FINDINGS: There is normal hyoid excursion and epiglottic deflection. No significant penetration or as piration identified. Swallowing function is within normal limits. IMPRESSION: 1. No aspiration identified. 2. Please see the speech pathologist report for detailed findings and recommendations. ACT 112: Negative or not required by law. Electronically signed by: Dillon Whaley M.D. 06/01/2020 11:49 AM
[2020-06-01] MEDS: ACETAMINOPHEN 325 MG TAB PO PRN (11:55)
[2020-06-01] MEDS: traMADol HCL 50 MG TABLET PO PRN (13:16)
--- NOTE | 2020-06-01 13:17 | Electrocardiogram Report ---
Test Reason : Blood Pressure : / mmHG Vent. Rate : 075 BPM Atrial Rate : 075 BPM P-R Int : 162 ms QRS Dur : 104 ms QT Int : 416 ms P-R-T Axes : 058 023 064 degrees QTc Int : 464 ms Poor data quality, interpretation may be adversely affected Normal sinus rhythm Normal ECG When compared with ECG of 29-MAY-2020 12:23, No significant change was found Confirmed by Marck Baca ([id number]) on 06/01/2020 1:16:43 PM Referred By: REFERRED SELF Confirmed By:Marck Baca
--- NOTE | 2020-06-01 14:49 | Hospitalist Progress Note ---
Date of Service June 01, 2020 Assessment & Plan (1) Stroke-like symptom: per admitting service notes: This is a 54-year-old female who has significant past medical history of failure on 6 L of O2, COPD, cirrhosis, hepatic encephalopathy, MELVI chronic diastolic CHF, HTN, HLD, bipolar disorder history of migraine history of alcohol abuse, anemia of chronic disease, history of tobacco abuse, generalized anxiety disorder, GERD, hepatopulmonary syndrome who presents to ED secondary to right- sided numbness x1 day. Work up in ED unrevealing. Repeat Heat CT negative for acute abnormality. Signs/sx given ipsilateral do not coordinate with that of CVA; nonetheless will admit for stroke/neuro work up. Sx less likely related to bells palsy as there is no 7th cranial nerve deficit. Possible Migraine given sx of migraine 2 days ago. Prior MRI reveals small vessel disease, ? TIA right sided numbness still the same Brain MRI with contrast: no acute CVA recent CT angio 05/29: no significant stenosis ASA 81mg po daily started Neurologist consulted, possible protracted migraine with aura continue to monitor closely (2) Chronic respiratory failure with hypoxia and hypercapnia: (3) COPD (chronic obstructive pulmonary disease): (+) Mild Acute Exacerbation- Acute Bronchitis, Possible Aspiration Pneumonitis baseline 6L of O2 CXR: mild basilar infiltrates Cepheid Covid Test: negative Continue Day # 2 Prednisone 40mg po daily, Nebs QID, Doxycycline + Augmentin with probiotics continue O2, symbicort, daliresp, Spiriva improving usually on prednisone 10mg daily [facility] (4) Electrolyte abnormality: Hypokalemia replaced with PO K resolved (5) Chronic diastolic CHF (congestive heart failure): echo 05/14/20 EF 60 to 65%, left ventricular diastolic function normal, AV sclerosis without stenosis no evidence of pulmonary hypertension, intrapulmonary shunt noted Currently on Lasix, Aldactone and potassium secondary to cirrhosis -- euvolemic (6) HTN, goal below 140/90: Blood pressure mildly elevated, allow for permissive hypertension in setting of stroke work-up continue Lasix, Aldactone, and losartan -- BP improving monitor (7) Alcoholic cirrhosis: History of hepatic encephalopathy per patient's , patient has been taking her lactulose and has at least 3 BMs per day Continue Lasix, Aldactone, thiamine, folic acid and lactulose Currently compensated (8) Bipolar 1 disorder: Also depression and anxiety Mood stable Continue Lamictal, Zoloft, Buspar and trazodone (9) Anemia, chronic disease: h/h stable at 10.6 and 32.9 No signs or symptoms of bleeding (10) Abnormal CT scan, neck: Neck CTA from 05/29/20 revealed thyroid nodules and nodule of L parotid gland CT: 5. Bilateral thyroid nodules measure up to 1.5 cm. Nonemergent thyroid ultrasound is recommended in follow-up. 6. A 10 mm nodule is seen within the left parotid gland. Nonemergent ENT follow- up is recommended. recommend non emergent follow up at discharge (11) DVT prophylaxis: Heparin SC SCD/TEDS Disposition: lives with at home PT/OT evaluation Follow up: PCP Dr. Crane upon discharge; follow up non emergent studies for thyroid and parotid gland plan of care discussed in detail and at length with patient and her all questions answered they are understanding, agreeable, comfortable with the plan of care Admission and Anticipated Discharge Date Admission Date: May 31, 2020 Subjective ff up for stroke like symptoms, COPD exacerbation, etc seen resting in bed, watching TV on 6L NC states her r sided numbness is still the same as yesterday no other focal neurologic symptoms no headache states breathing is somewhat better still has some dry cough no acute confusion, abdominal pain no chest pain, palpitations, dizziness no fever/chills no other symptoms Review of Systems Review of Systems: All systems reviewed & are unremarkable except as noted in Subjective Physical Exam Physical Exam: General- oriented x 3, not in distress, speaks in sentences with no effort or accessory muscle use Head- atraumatic Eyes- PERRL, EOMI, anicteric ENT- oropharynx clear Neck- supple, no JVD, no adenopathy, no thyromegaly; carotids +2/2, no bruits appreciated Lungs- somewhat diminished- clear to auscultation bilaterally, no rales/wheezes - improved compared to yesterday Heart- normal rate, regular rhythm; no murmur, no gallop, no rub appreciated Abdomen- normal bowel sounds, nondistended, soft, nontender, no masses or hepatosplenomegaly Extremities- no pretibial edema, no calf tenderness; peripheral pulses intact Neuro- alert, oriented x 3; CN 2-12 grossly intact; motor 5/5 bilaterally;sensation 50% on the R extremities, 100% on the left on all extremities; no other gross focal neurologic deficits Skin- warm & dry Laboratory Results - last 24 hr 05/31/20 05/31/20 05/31/20 12:00 15:35 18:45 WBC RBC Hgb Hct MCV MCH MCHC RDW Std Deviation RDW Coeff of Gregg Plt Count MPV Immature Gran % (A uto) Neut % (Auto) Lymph % (Auto) [place] % (Auto) Eos % (Auto) Baso % (Auto) Neut # (Auto) Lymph # (Auto) [place] # (Auto) Eos # (Auto) Baso # (Auto) Immature Gran # (A uto) Sodium Potassium Chloride Carbon Dioxide Anion Gap BUN Creatinine Est Cr Clr Drug Do sing Est GFR ( A jessica) Est GFR (Non-Af Am er) BUN/Creatinine Rat io Glucose Estimat Average Gl ucose Hemoglobin A1c Calcium Ammonia 62.5 H Prealbumin Triglycerides Cholesterol LDL Cholesterol, C alc VLDL Cholesterol, Calc HDL Cholesterol Cholesterol/HDL Ra [place] Procalcitonin < 0.05 COVID-19 Eval Orde r CovFluRsv at [facility] SARS-CoV-2 (PCR) Influenza Type A ( PCR) Influenza Type B ( PCR) RSV (RT-PCR) 05/31/20 06/01/20 06/01/20 18:45 05:48 05:48 WBC 4.90 RBC 3.48 L Hgb 10.1 L Hct 31.5 L MCV 90.5 MCH 29.0 MCHC 32.1 RDW Std Deviation 49.1 H RDW Coeff of Gregg 15.1 H Plt Count 140 MPV 9.4 Immature Gran % (A uto) 0.2 Neut % (Auto) 81.2 Lymph % (Auto) 12.7 [place] % (Auto) 4.7 Eos % (Auto) 0.8 Baso % (Auto) 0.4 Neut # (Auto) 3.98 Lymph # (Auto) 0.62 L [place] # (Auto) 0.23 Eos # (Auto) 0.04 Baso # (Auto) 0.02 Immature Gran # (A uto) 0.01 Sodium 145 Potassium 4.4 D Chloride 116 H Carbon Dioxide 25 Anion Gap 4.0 BUN 9 Creatinine 0.75 Est Cr Clr Drug Do sing 109.9 Est GFR ( A jessica) 104.7 Est GFR (Non-Af Am er) 90.4 BUN/Creatinine Rat io 11.3 Glucose 119 H Estimat Average Gl ucose Hemoglobin A1c Calcium 8.1 L Ammonia Prealbumin 10.2 L Triglycerides 58 Cholesterol 153 LDL Cholesterol, C alc 73 VLDL Cholesterol, Calc 12 HDL Cholesterol 68 Cholesterol/HDL Ra [place] 2 Procalcitonin COVID-19 Eval Orde r SARS-CoV-2 (PCR) NEGATIVE Influenza Type A ( PCR) Negative Influenza Type B ( PCR) Negative RSV (RT-PCR) Negative 06/01/20 06/01/20 05:48 05:48 WBC RBC Hgb Hct MCV MCH MCHC RDW Std Deviation RDW Coeff of Gregg Plt Count MPV Immature Gran % (A uto) Neut % (Auto) Lymph % (Auto) [place] % (Auto) Eos % (Auto) Baso % (Auto) Neut # (Auto) Lymph # (Auto) [place] # (Auto) Eos # (Auto) Baso # (Auto) Immature Gran # (A uto) Sodium Potassium Chloride Carbon Dioxide Anion Gap BUN Creatinine Est Cr Clr Drug Do sing Est GFR ( A jessica) Est GFR (Non-Af Am er) BUN/Creatinine Rat io Glucose Estimat Average Gl ucose 108 Hemoglobin A1c 5.4 Calcium Ammonia 48.0 H Prealbumin Triglycerides Cholesterol LDL Cholesterol, C alc VLDL Cholesterol, Calc HDL Cholesterol Cholesterol/HDL Ra [place] Procalcitonin COVID-19 Eval Orde r SARS-CoV-2 (PCR) Influenza Type A ( PCR) Influenza Type B ( PCR) RSV (RT-PCR) Results & Data Results & Data ([facility]) Vital Signs (Past 12 Hours) Vital Signs Temp Pulse Pulse Pulse Resp BP Pulse Ox 06/01/20 13:39 87 18 95 06/01/20 11:49 36.9 C 87 20 150/80 H 93 06/01/20 08:00 78 06/01/20 07:57 36.9 C 92 H 22 165/92 H 93 06/01/20 07:44 87 18 94 06/01/20 04:34 37.1 C 82 20 151/82 H 92 Laboratory Results Laboratory Results - last 24 hr 0105/31/20 05/31/20 12:00 18:45 18:45 WBC RBC Hgb Hct MCV MCH MCHC RDW Std Deviation RDW Coeff of Gregg Plt Count MPV Immature Gran % (Auto) Neut % (Auto) Lymph % (Auto) [place] % (Auto) Eos % (Auto) Baso % (Auto) Neut # (Auto) Lymph # (Auto) [place] # (Auto) Eos # (Auto) Baso # (Auto) Immature Gran # (Auto) Sodium Potassium Chloride Carbon Dioxide Anion Gap BUN Creatinine Est Cr Clr Drug Dosing Est GFR ( Amer) Est GFR (Non-Af Amer) BUN/Creatinine Ratio Glucose Estimat Average Glucose Hemoglobin A1c Calcium Ammonia Prealbumin Triglycerides Cholesterol LDL Cholesterol, Calc VLDL Cholesterol, Calc HDL Cholesterol Cholesterol/HDL Ratio Procalcitonin < 0.05 COVID-19 Eval Order CovFluRsv at [facility] SARS-CoV-2 (PCR) NEGATIVE Influenza Type A (PCR) Negative Influenza Type B (PCR) Negative RSV (RT-PCR) Negative 06/01/20 06/01/20 06/01/20 05:48 05:48 05:48 WBC 4.90 RBC 3.48 L Hgb 10.1 L Hct 31.5 L MCV 90.5 MCH 29.0 MCHC 32.1 RDW Std Deviation 49.1 H RDW Coeff of Gregg 15.1 H Plt Count 140 MPV 9.4 Immature Gran % (Auto) 0.2 Neut % (Auto) 81.2 Lymph % (Auto) 12.7 [place] % (Auto) 4.7 Eos % (Auto) 0.8 Baso % (Auto) 0.4 Neut # (Auto) 3.98 Lymph # (Auto) 0.62 L [place] # (Auto) 0.23 Eos # (Auto) 0.04 Baso # (Auto) 0.02 Immature Gran # (Auto) 0.01 Sodium 145 Potassium 4.4 D Chloride 116 H Carbon Dioxide 25 Anion Gap 4.0 BUN 9 Creatinine 0.75 Est Cr Clr Drug Dosing 109.9 Est GFR ( Amer) 104.7 Est GFR (Non-Af Amer) 90.4 BUN/Creatinine Ratio 11.3 Glucose 119 H Estimat Average Glucose 108 Hemoglobin A1c 5.4 Calcium 8.1 L Ammonia Prealbumin 10.2 L Triglycerides 58 Cholesterol 153 LDL Cholesterol, Calc 73 VLDL Cholesterol, Calc 12 HDL Cholesterol 68 Cholesterol/HDL Ratio 2 Procalcitonin COVID-19 Eval Order SARS-CoV-2 (PCR) Influenza Type A (PCR) Influenza Type B (PCR) RSV (RT-PCR) 06/01/20 05:48 WBC RBC Hgb Hct MCV MCH MCHC RDW Std Deviation RDW Coeff of Gregg Plt Count MPV Immature Gran % (Auto) Neut % (Auto) Lymph % (Auto) [place] % (Auto) Eos % (Auto) Baso % (Auto) Neut # (Auto) Lymph # (Auto) [place] # (Auto) Eos # (Auto) Baso # (Auto) Immature Gran # (Auto) Sodium Potassium Chloride Carbon Dioxide Anion Gap BUN Creatinine Est Cr Clr Drug Dosing Est GFR ( Amer) Est GFR (Non-Af Amer) BUN/Creatinine Ratio Glucose Estimat Average Glucose Hemoglobin A1c Calcium Ammonia 48.0 H Prealbumin Triglycerides Cholesterol LDL Cholesterol, Calc VLDL Cholesterol, Calc HDL Cholesterol Cholesterol/HDL Ratio Procalcitonin COVID-19 Eval Order SARS-CoV-2 (PCR) Influenza Type A (PCR) Influenza Type B (PCR) RSV (RT-PCR)
--- NOTE | 2020-06-01 15:55 | Communication Note ---
Date of Service: June 01, 2020 I am seeing Marcia today and had the opportunity to review her history. She states that about 3 days ago she started with a right suboccipital headache which was typical of her migraines then noted some facial numbness and over the ensuing days the paresthesias spread to her right arm and leg. She may have had some positive visual phenomenon associated with this early on. She states that this is not atypical for some of her migraines where she has had some numbness in the past and that sometimes the numbness will last a day or so or longer. Th e frequency of these affairs is about 1 to 2/week when they are frequent and sometimes less She has had another MRI scan this time with enhancement that shows no significant abnormalities my opinion and we did search for DVT because of her pulmonary shunting and her duplex of the lower extremity veins was normal She states that for some reason she cannot take aspirin or has been advised against taking aspirin. She is not clear as to the reason and I cannot find this listed as an allergy in her chart Frankly with her history of vascular risk factors and her history of classic migraines with aura I think a baby aspirin a day would be justified but perhaps this could be switched to a single Plavix if she has some aspirin sensitivity Currently I suspect this was a migraine with persistent aura rather than a completed vascular event and certainly there is no evidence for facial weakness consistent with the initial diagnosis of a Khan's palsy so I see no reason to maintain the acyclovir and would taper the prednisone down as this might help break some of the migraine phenomenon At this point then neurology has no recommendations but she could be seen again in our office her history reviewed along with her medications and I see no harm in placing her on a program of riboflavin and magnesium oxide both 400 mg to see if we can cut down the frequency of her migraines using a relatively benign combination which is unlikely to interact with her other medications other than the potential for magnesium to induce some diarrhea Refer the reader to my prior communication note which reviewed her history medications allergies in detail and I am not going to repeat this today Were all then there is no evidence for a completed stroke, I suspect this was a migraine as she has had similar events in the past and was treated accordingly and the issue of the baby aspirin is something that she might want to discuss with her primary care physician but I currently see little harm in Examination today was absolutely normal with the exception of subjective reduction in the appreciation of light touch over the entirety of her right face arm and leg. This was not accompanied by any other cranial nerve involvement and was paradoxically associated with retained ability to localize body parts with her eyes closed specifically parts of her right arm and leg. She could do [id number] testing with eyes closed and without any loss of facility and could connect her index fingers thumb and 3rd fingers when her hands were extended ahead of her and her eyes were closed and she was instructed to bring her fingers together Furthermore there was no absolute loss of vibration position pinprick or temperature and the deficits were purely subjective and confined to light touch ~The above findings might actually suggest a superimposed functional component for now I think we can make the diagnosis of a migraine and certainly eliminate the diagnosis of a stroke Neurology is going to sign off the case at this point. She may be going to a personal care or extended care facility due to her pulmonary issues. We can take a look at her in clinic in about 4 to 6 weeks regarding her migraines and again the aspirin issue can be addressed with her primary care physician and in my opinion is not an urgent medication at this point as we have no evidence there was any clear-cut cerebrovascular event Ronald Shipman MD
[2020-06-01] MEDS: ADVANCED PROBIOTIC 1250 MG CAPSULE PO SCH (16:27)
[2020-06-01] MEDS: AMOXICILLIN/CLAVULANATE 875 MG TAB PO SCH (16:28)
[2020-06-01] MEDS: hydrOXYzine HCl 25 MG TAB PO PRN ×2 (17:21→23:16)
[2020-06-01] MEDS: HEPARIN SOD 5,000 UNIT/0.5 ML VIAL SQ SCH (21:40)
[2020-06-01] MEDS: lamoTRIgine 100 MG TAB PO SCH (21:41)
[2020-06-01] MEDS: MONTELUKAST SODIUM 10 MG TABLET PO SCH (21:43)
[2020-06-01] MEDS: traZODone HCL 50 MG TAB PO SCH (21:43)
[2020-06-01] MEDS: FAMOTIDINE 20 MG TAB PO SCH (21:43)
[2020-06-01] MEDS: rOPINIRole HCL 0.25 MG TABLET PO SCH (21:44)
[2020-06-02] MEDS: IPRATROPIUM BROMIDE NEB SOLN 0.02% 2.5 ML VIAL INH SCH ×4 (00:43→19:48)
[2020-06-02] MEDS: LEVALBUTEROL 1.25MG/0.5ML NEB INH SCH ×4 (00:43→19:48)
[2020-06-02] MEDS: HEPARIN SOD 5,000 UNIT/0.5 ML VIAL SQ SCH ×3 (06:13→20:48)
[2020-06-02 06:32] LABS: Basophils # (auto) 0.02 K/uL (0-0.2); Basophils % (auto) 0.4 %; Eosinophils # (auto) 0.11 K/uL (0-0.5); Hematocrit (blood only) 30.2 % (37-47); Hemoglobin 9.6 g/dL (12.0-16.0); Immature Granulocytes # (auto) 0.01 K/uL (0.00-0.02); Immature Granulocytes % (auto) 0.2 %; Lymphocytes % (auto) 36.8 %; Mean Corpuscular Hemoglobin 28.6 pg (25-34); Mean Corpuscular Hgb Conc 31.8 g/dL (32-36); Mean Corpuscular Volume 89.9 fL (80-100); Monocytes # (auto) 0.38 K/uL (0.11-0.59); Neutrophils # (auto) 2.92 K/uL (1.4-6.5); Neutrophils % (auto) 53.6 %; Platelet Count 160 K/uL (130-400); RDW Coefficient of Variation 15.4 % (11.5-14.5); RDW Standard Deviation 50.4 fL (36.4-46.3); Red Blood Count 3.36 M/uL (4.2-5.4); White Blood Count 5.44 K/uL (4.8-10.8)
[2020-06-02 06:59] LABS: BUN Creatinine Ratio 13.2 (10-20); Calcium 8.6 mg/dl (8.5-10.1); Creatinine Clr Calc Pharmacy 114.9 ml/min; Est GFR (Non-African American) 94.9; Potassium 3.3 mmol/L (3.5-5.1)
[2020-06-02] MEDS: rifAXIMin 550 MG TABLET PO SCH ×2 (08:27→21:21)
[2020-06-02] MEDS: hydrOXYzine HCl 25 MG TAB PO PRN (08:27)
[2020-06-02] MEDS: predniSONE 20 MG TAB PO SCH (08:27)
[2020-06-02] MEDS: ATORVASTATIN 40 MG TAB PO SCH (08:28)
[2020-06-02] MEDS: SERTRALINE HCL 50 MG TABLET PO SCH (08:28)
[2020-06-02] MEDS: MAGNESIUM OXIDE 400 MG TAB PO SCH ×2 (08:28→20:50)
[2020-06-02] MEDS: FOLIC ACID 1 MG TAB PO SCH (08:28)
[2020-06-02] MEDS: FUROSEMIDE 40 MG TAB PO SCH ×2 (08:28→17:52)
[2020-06-02] MEDS: THIAMINE HCL 100 MG TAB PO SCH (08:28)
[2020-06-02] MEDS: ASPIRIN 81 MG ECTAB PO SCH (08:28)
[2020-06-02] MEDS: ROFLUMILAST 500 MCG TAB PO SCH (08:28)
[2020-06-02] MEDS: POTASSIUM CHLORIDE 10 MEQ TABCR PO SCH (08:28)
[2020-06-02] MEDS: DICYCLOMINE HCL 20 MG TAB PO SCH ×2 (08:28→20:50)
[2020-06-02] MEDS: LOSARTAN POTASSIUM 25 MG TAB PO SCH (08:28)
[2020-06-02] MEDS: DOXYCYCLINE HYCLATE 100 MG CAP PO SCH ×2 (08:28→21:21)
[2020-06-02] MEDS: SPIRONOLACTONE 100 MG TAB PO SCH (08:29)
[2020-06-02] MEDS: AMOXICILLIN/CLAVULANATE 875 MG TAB PO SCH ×2 (08:29→17:52)
[2020-06-02] MEDS: ADVANCED PROBIOTIC 1250 MG CAPSULE PO SCH (08:29)
[2020-06-02] MEDS: FERROUS SULFATE 325 MG TAB PO SCH ×2 (08:29→17:52)
[2020-06-02] MEDS: FLUTICASONE/VILANTEROL 200/25MCG 14 PUFFS/INHALER INH SCH (08:30)
[2020-06-02] MEDS: busPIRone 5 MG TAB PO SCH ×2 (08:30→20:49)
[2020-06-02] MEDS: UMECLIDINIUM BROMIDE 62.5MCG/BLISTER 7 PUFFS/INHALER INH SCH (08:30)
[2020-06-02] MEDS: MULTIVITAMIN TAB PO SCH (08:30)
[2020-06-02] MEDS: PSYLLIUM 58.6% POWDER PACKET PO SCH (08:31)
[2020-06-02] MEDS: PANTOprazole 40 MG TAB PO SCH ×2 (08:31→20:49)
[2020-06-02] MEDS: LACTULOSE SYRUP 10 GM/15 ML BTL 960 ML PO SCH ×4 (08:32→20:48)
[2020-06-02] MEDS ORDERED: POTASSIUM CHLORIDE CRTAB 20 MEQ TABCR PO ONE (09:15)
--- NOTE | 2020-06-02 11:09 | Pulmonary Consultation ---
Date of Consultation June 02, 2020 Assessment & Plan (1) Acute on chronic respiratory failure with hypoxia and hypercapnia: CT chest 05/06/2020 personally reviewed: Dependent atelectasis bilateral lower lobes, no clear lung infiltrate appreciated, no mediastinal adenopathy. Chest x-ray 05/31/2020 personally reviewed: Portable film, good respiratory effort, increased vascular markings, enlarged cardiac silhouette, bilateral costophrenic and cardiophrenic angles are clean. --Acute on chronic hypoxic respiratory failure Multifactorial Patient is on 6 L nasal cannula at baseline and 8 L on exertion COVID-19 PCR, influenza A/B/RSV negative 05/31/2020 Procalcitonin negative NT-BNP 137 06/02/2020 --Asthma COPD overlap syndrome Patient is on Symbicort and Spiriva along with Roflumilast at home would continue with the same. Patient is on chronic prednisone 10 mg at home. There has been no benefit of chronic prednisone in patients with COPD. We will defer the management to outpatient pulmonary Lung transplant could be thought of given the severity of her underlying illness. Chronic azithromycin 250 mg thrice weekly should also be thought of as an outpatient. Patient's QTC was 464 on 05/31/2020 --MELVI with morbid obesity Patient does not have CPAP at home Needs outpatient sleep study to be set up as soon as possible BiPAP nightly while in the hospital --Pulmonary hypertension RVSP 47 on 2D echo done 06/02/20 Given the patient has history of liver cirrhosis type I pulmonary hypertension should also be thought of on top of type III Patient's underlying morbid obesity and MELVI OHS is also playing a role Recommend outpatient pulmonary hypertension work-up with her certified ophthalmic technologist. --Ex smoker Quit approximately 6 months ago Advised to continue with abstinence Plan: Patient's chest x-ray was more with vascular congestion. Continue with diuretics to keep the patient negative balance. 2D echo shows good ejection fraction, no diastolic dysfunction There was no wheezing appreciated patient is feeling well when it comes to her breathing Given procalcitonin negative. Can discontinue amoxicillin. Continue with doxycycline for 5 days Trial of BiPAP nightly. Taper prednisone 20 mg starting tomorrow for 3 days and go to her home dose. Incentive spirometry will help. Please note the above document was generated using voice recognition software. It may contain grammatical, syntax or spelling errors.Any formal questions or concerns about the content, text or information contained within the body of this dictation should be directly addressed to the provider for clarification. (2) Asthma: (3) COPD (chronic obstructive pulmonary disease): (4) COPD exacerbation: (5) Pulmonary hypertension: History of Present Illness Attending Physician: Flaco Zapata MD History of Present Illness 54-year-old female with past medical history of asthma/COPD on 6L at home at rest and 8 L on exertion, on chronic 10 mg prednisone at home alcoholic cirrhosis, diastolic CHF, sleep apnea noncompliant with CPAP, bipolar disorder was admitted to hospital because of facial drooping on the right side. Pulmonary were consulted for wheezing. I had seen the patient last on 02/10/2020 as a pulmonary consult in the hospital. Patient follows up with [facility] pulmonology. At the time of examination patient states that she has been coughing on a daily basis especially early in the morning. There was no change in the frequency of her cough. Patient did complain of subjective fever and chills. No hemoptysis. Patient has been compliant with Symbicort as well as Spiriva on a daily basis. Denies any dysuria, no diarrhea. No chest pain, no dizziness. No recent travel history. As per the patient she has pulse ox at home and her saturation usually runs duong und high 70s to low 80s. Patient is trying to get sleep study done so that she can get a new CPAP m achine. Patient does have history of sleep apnea but she was not compliant with CPAP and her machine was taken away. Social history: [id number] smoking history, quit approximately 6 months ago Does have history of asthma as a child. Allergies Allergy/AdvReac Type Severity Reaction Status Date / Time strawberry Allergy Severe HIVES Verified 05/31/20 12:19 bee venom protein (honey bee) Allergy Unknown HIVES AND Verified 05/31/20 12:19 SWELLING pollen extracts Allergy Unknown UNKNOWN Verified 05/31/20 12:19 No Known Drug Allergies Allergy Unknown Verified 05/31/20 12:19 [place] Tar Allergy Mild Unknown Uncoded 05/31/20 12:19 Home Medications Medication Instructions Recorded Confirmed Type fluticasone propionate [Flonase 2 spray INTRANASAL DAILY PRN 02/22/18 05/31/20 History Allergy Relief] furosemide [Lasix] 40 mg PO BID 02/22/18 05/31/20 History pantoprazole [Protonix] 40 mg PO BID 02/22/18 05/31/20 History ropinirole [Requip] 0.25 mg PO HS 02/22/18 05/31/20 History albuterol sulfate 90 mcg/actuation 2 puffs INH Q6H PRN 11/28/18 05/31/20 History aerosol inhaler budesonide-formoterol HFA 160 2 puffs INH BID 11/28/18 05/31/20 History mcg-4.5 mcg/actuation aerosol inhaler folic acid 1 mg tablet 1 mg PO QAM tab 11/28/18 05/31/20 History losartan 25 mg tablet 25 mg PO QAM tab 11/28/18 05/31/20 History magnesium oxide 400 mg PO BID 11/28/18 05/31/20 History montelukast 10 mg tablet 10 mg PO HS tab 11/28/18 05/31/20 History potassium chloride 10 mEq 10 meq PO QAM tab 11/28/18 05/31/20 History tablet,extended release rifaximin 550 mg tablet 550 mg PO BID 11/28/18 05/31/20 History thiamine HCl (vitamin B1) 100 mg 100 mg PO QAM tab 11/28/18 05/31/20 History tablet dextromethorphan-guaifenesin 30 1 tab PO Q12H PRN 12/13/18 05/31/20 History mg-600 mg tablet extended [id number] hr lactulose 10 gram/15 mL oral 60 ml PO QID ml 12/13/18 05/31/20 History solution spironolactone 100 mg tablet 150 mg PO QAM tab 01/25/19 05/31/20 History hydroxyzine HCl 25 mg PO BID PRN 04/27/19 05/31/20 History lamotrigine 150 mg PO HS 11/13/19 05/31/20 History sertraline 75 mg PO QAM 11/13/19 05/31/20 History psyllium 1 pkt PO DAILY #30 ea 11/16/19 05/31/20 Rx dicyclomine 20 mg PO BID 02/05/20 05/31/20 History polyethylene glycol 3350 [Miralax] 17 g PO DAILY PRN 02/05/20 05/31/20 History tramadol [Ultram] 50 mg PO BID PRN 02/05/20 05/31/20 History trazodone 150 mg PO HS 02/05/20 05/31/20 History levalbuterol HCl 1.25 mg INHALATION Q4H PRN #25 ea 02/11/20 05/31/20 Rx ipratropium bromide 2.5 ml INHALATION Q4H PRN 02/28/20 05/31/20 History multivitamin 1 tab PO QAM 04/03/20 05/31/20 History valacyclovir [Valtrex] 1,000 mg PO TID 7 Days #21 tab 05/29/20 05/31/20 Rx buspirone 5 mg PO BID 05/31/20 05/31/20 History famotidine 20 mg PO HS 05/31/20 05/31/20 History ferrous sulfate 325 mg PO BID 05/31/20 05/31/20 History prednisone 10 mg PO DAILY 05/31/20 05/31/20 History roflumilast [Daliresp] 500 mcg PO DAILY 05/31/20 05/31/20 History tiotropium bromide [Spiriva with 1 cap INHALATION DAILY 05/31/20 05/31/20 History HandiHaler] Patient History Medical History (Updated 06/02/20 @ 17:51 by Shaunna Mensah MD) Alcoholic cirrhosis Anemia, chronic disease Anxiety Asthma Bipolar 1 disorder Chronic diastolic CHF (congestive heart failure) COPD (chronic obstructive pulmonary disease) H/O alcohol abuse HTN, goal below 140/90 Hx of migraines MELVI (obstructive sleep apnea) Sleep apnea Tobacco use disorder Surgical History History of spinal fusion History of total right knee replacement S/P cholecystectomy S/P tubal ligation Family History Sister Diabetes Mother Hodgkin lymphoma Father Brain tumor Social History Smoking Status: Former smoker Tobacco Type: Cigarettes Cigarettes Per Day: 10; Second Hand Exposure: No; Hx Alcohol Use: No Hx Substance Use: No Preferred Language: [place]arag[place] Communication Ability: Effective Reference Test Clerk Required: No Beliefs That Will Affect Care: None marital status: Current Living Situation: Spouse How many Children do You have: 4 Other Information That Helps Us Care for You: No Feels Safe at Home: Yes Safety Concerns: Feels Safe At This Time Assistive Devices: Oxygen - Continuous Review of Systems Review of Systems: All systems reviewed & are unremarkable except as noted in HPI & below Physical Exam Physical Exam: Constitutional: No acute distress HEENT: EOMI, PERRLA, thick neck Respiratory system: Decreased air entry bilaterally, no wheeze, no rhonchi, positive crackles bilateral lower lobes CVS: S1-S2 positive, no murmurs or gallops Abdomen: Soft, nontender, nondistended, positive bowel sounds x4, obese Extremities: +2 pulses bilaterally radialis/ dorsalis pedis, no cyanosis, no edema Neuro: Awake alert oriented x3 Psych: Normal mood and affect G/U: No Bacon Skin: no rashes, warm and dry Lymphatic: no cervical or axillary lymphadenopathy Results & Data Results & Data ([facility]) Vital Signs (Past 12 Hours) Vital Signs Temp Pulse Pulse Pulse Resp BP Pulse Ox 06/02/20 08:16 37.0 C 87 18 134/66 93 06/02/20 07:23 85 20 95 06/02/20 04:58 36.7 C 82 20 124/74 92 06/02/20 00:49 36.8 C 79 20 109/65 94 06/02/20 00:43 77 20 95 06/01/20 23:32 89 06/02/20 05:24 06/02/20 05:24 PG Care Time/CCT Total # of Minutes Spent Total Time Spent with Patient: Total time spent is greater than 50% in coordination of care (as documented) at patient's floor/unit and/or counseling patient: Coding Level of Care Code 04767 Initial Inpt Care Lvl 3 Diagnoses Acute on chronic respiratory failure with hypoxia and hypercapnia J96.21; J96.22 Asthma J45.909 COPD (chronic obstructive pulmonary disease) J44.9 COPD exacerbation J44.1 Pulmonary hypertension I27.20
[2020-06-02] MEDS ORDERED: PERFLUTREN LIPID MICROSPHERE (DEFINITY) IV ONE (15:10)
[2020-06-02] MEDS: traMADol HCL 50 MG TABLET PO PRN (15:15)
--- NOTE | 2020-06-02 15:56 | Hospitalist Progress Note ---
Date of Service June 02, 2020 Assessment & Plan (1) Stroke-like symptom: per admitting service notes: This is a 54-year-old female who has significant past medical history of failure on 6 L of O2, COPD, cirrhosis, hepatic encephalopathy, MELVI chronic diastolic CHF, HTN, HLD, bipolar disorder history of migraine history of alcohol abuse, anemia of chronic disease, history of tobacco abuse, generalized anxiety disorder, GERD, hepatopulmonary syndrome who presents to ED secondary to right- sided numbness x1 day. Work up in ED unrevealing. Repeat Heat CT negative for acute abnormality. Signs/sx given ipsilateral do not coordinate with that of CVA; nonetheless will admit for stroke/neuro work up. Sx less likely related to bells palsy as there is no 7th cranial nerve deficit. Possible Migraine given sx of migraine 2 days ago. Prior MRI reveals small vessel disease, ? TIA right sided facial numbness resolved, right hand and foot numbness about the same Brain MRI with contrast: no acute CVA recent CT angio 05/29: no significant stenosis ASA 81mg po daily started Neurologist consulted, possible protracted migraine with aura recommend magnesium and vitamin b2 continue to monitor closely (2) Chronic respiratory failure with hypoxia and hypercapnia: (3) COPD (chronic obstructive pulmonary disease): (+) Mild Acute Exacerbation- Acute Bronchitis, Possible Aspiration Pneumonitis baseline 6L of O2 CXR: mild basilar infiltrates Cepheid Covid Test: negative improving gradually, but reports dyspnea with minimal exertion euvolemic will consult Pulmonary Continue Day # 3 Prednisone 40mg po daily, Nebs QID, Doxycycline + Augmentin with probiotics continue O2, symbicort, daliresp, Spiriva usually on prednisone 10mg daily [facility] follows [facility] Dietrich pul (4) Electrolyte abnormality: Hypokalemia replaced with PO K (5) Chronic diastolic CHF (congestive heart failure): echo 05/14/20 EF 60 to 65%, left ventricular diastolic function normal, AV sclerosis without stenosis no evidence of pulmonary hypertension, intrapulmonary shunt noted Currently on Lasix, Aldactone and potassium secondary to cirrhosis -- euvolemic (6) HTN, goal below 140/90: Blood pressure mildly elevated, allow for permissive hypertension in setting of stroke work-up continue Lasix, Aldactone, and losartan -- BP improving monitor (7) Alcoholic cirrhosis: History of hepatic encephalopathy per patient's , patient has been taking her lactulose and has at least 3 BMs per day Continue Lasix, Aldactone, thiamine, folic acid and lactulose Currently compensated (8) Bipolar 1 disorder: Also depression and anxiety Mood stable Continue Lamictal, Zoloft, Buspar and trazodone (9) Anemia, chronic disease: h/h stable at 10.6 and 32.9 No signs or symptoms of bleeding (10) Abnormal CT scan, neck: Neck CTA from 05/29/20 revealed thyroid nodules and nodule of L parotid gland CT: 5. Bilateral thyroid nodules measure up to 1.5 cm. Nonemergent thyroid ultrasound is recommended in follow-up. 6. A 10 mm nodule is seen within the left parotid gland. Nonemergent ENT follow- up is recommended. recommend non emergent follow up at discharge (11) DVT prophylaxis: Heparin SC SCD/TEDS Disposition: lives with at home PT/OT evaluation in progress patient and family would like for her to return home when medically stable, declining Rehab/SNF Follow up: PCP Dr. Crane upon discharge; follow up non emergent studies for thyroid and parotid gland plan of care discussed in detail and at length with patient and her all questions answered they are understanding, agreeable, comfortable with the plan of care Admission and Anticipated Discharge Date Admission Date: May 31, 2020 Subjective ff up for r sided numbness, COPD exacerbation seen resting in bed, comfortable states she feels a little better today right facial numbness resolved, right hand and foot numbness about the same no other focal neuro deficits states breathing is gradually improving less cough no chest pain, palpitations, dizziness no other symptoms Review of Systems Review of Systems: All systems reviewed & are unremarkable except as noted in Subjective Physical Exam Physical Exam: General- oriented x2, not in distress, speaks in sentences with no effort or accessory muscle use Eyes- anicteric Neck- no JVD Lungs- diminished but improving BS bilaterally no rales no wheezing Heart- normal rate, regular rhythm; no murmurs Abdomen- normal bowel sounds, nondistended, soft, nontender Extremities- no pretibial edema, no calf tenderness Neuro- alert, oriented x 2; no gross focal neurologic deficits Skin- warm & dry Results & Data Results & Data ([facility]) Vital Signs (Past 12 Hours) Vital Signs Temp Pulse Pulse Resp BP Pulse Ox 06/02/20 15:37 36.8 C 89 20 152/79 H 96 06/02/20 13:36 82 18 97 06/02/20 11:59 37.4 C 83 18 142/69 H 89 L 06/02/20 08:16 37.0 C 87 18 134/66 93 06/02/20 07:23 85 20 95 06/02/20 04:58 36.7 C 82 20 124/74 92 Laboratory Results Laboratory Results - last 24 hr 06/02/20 06/02/20 06/02/20 05:24 05:24 05:24 WBC 5.44 RBC 3.36 L Hgb 9.6 L Hct 30.2 L MCV 89.9 MCH 28.6 MCHC 31.8 L RDW Std Deviation 50.4 H RDW Coeff of Gregg 15.4 H Plt Count 160 MPV 10.0 Immature Gran % (Auto) 0.2 Neut % (Auto) 53.6 Lymph % (Auto) 36.8 [place] % (Auto) 7.0 Eos % (Auto) 2.0 Baso % (Auto) 0.4 Neut # (Auto) 2.92 Lymph # (Auto) 2.00 [place] # (Auto) 0.38 Eos # (Auto) 0.11 Baso # (Auto) 0.02 Immature Gran # (Auto) 0.01 Sodium 144 Potassium 3.3 L D Chloride 114 H Carbon Dioxide 23 Anion Gap 8.0 BUN 10 Creatinine 0.72 Est Cr Clr Drug Dosing 114.9 Est GFR ( Amer) 110.0 Est GFR (Non-Af Amer) 94.9 BUN/Creatinine Ratio 13.2 Glucose 91 Calcium 8.6 Magnesium 2.1 NT-Pro-B Natriuret Pep 06/02/20 05:24 WBC RBC Hgb Hct MCV MCH MCHC RDW Std Deviation RDW Coeff of Gregg Plt Count MPV Immature Gran % (Auto) Neut % (Auto) Lymph % (Auto) [place] % (Auto) Eos % (Auto) Baso % (Auto) Neut # (Auto) Lymph # (Auto) [place] # (Auto) Eos # (Auto) Baso # (Auto) Immature Gran # (Auto) Sodium Potassium Chloride Carbon Dioxide Anion Gap BUN Creatinine Est Cr Clr Drug Dosing Est GFR ( Amer) Est GFR (Non-Af Amer) BUN/Creatinine Ratio Glucose Calcium Magnesium NT-Pro-B Natriuret Pep 137
[2020-06-02] MEDS: traZODone HCL 50 MG TAB PO SCH (20:49)
[2020-06-02] MEDS: FAMOTIDINE 20 MG TAB PO SCH (20:49)
[2020-06-02] MEDS: MONTELUKAST SODIUM 10 MG TABLET PO SCH (20:49)
[2020-06-02] MEDS: lamoTRIgine 100 MG TAB PO SCH (20:49)
[2020-06-02] MEDS: rOPINIRole HCL 0.25 MG TABLET PO SCH (20:49)
[2020-06-03] MEDS: IPRATROPIUM BROMIDE NEB SOLN 0.02% 2.5 ML VIAL INH SCH ×4 (01:05→19:13)
[2020-06-03] MEDS: LEVALBUTEROL 1.25MG/0.5ML NEB INH SCH ×4 (01:05→19:13)
[2020-06-03] MEDS: HEPARIN SOD 5,000 UNIT/0.5 ML VIAL SQ SCH ×3 (04:04→20:57)
[2020-06-03 07:16] LABS: Basophils # (auto) 0.03 K/uL (0-0.2); Basophils % (auto) 0.5 %; Eosinophils # (auto) 0.18 K/uL (0-0.5); Eosinophils % (auto) 2.9 %; Hematocrit (blood only) 30.9 % (37-47); Hemoglobin 9.8 g/dL (12.0-16.0); Immature Granulocytes # (auto) 0.01 K/uL (0.00-0.02); Immature Granulocytes % (auto) 0.2 %; Lymphocytes # (auto) 2.34 K/uL (1.2-3.4); Lymphocytes % (auto) 37.5 %; Mean Corpuscular Hemoglobin 28.7 pg (25-34); Mean Corpuscular Hgb Conc 31.7 g/dL (32-36); Mean Corpuscular Volume 90.6 fL (80-100); Mean Platelet Volume 9.4 fL (7.4-10.4); Monocytes # (auto) 0.38 K/uL (0.11-0.59); Monocytes % (auto) 6.1 %; Neutrophils % (auto) 52.8 %; Platelet Count 162 K/uL (130-400); RDW Coefficient of Variation 15.5 % (11.5-14.5); RDW Standard Deviation 50.9 fL (36.4-46.3); Red Blood Count 3.41 M/uL (4.2-5.4); White Blood Count 6.24 K/uL (4.8-10.8)
[2020-06-03 07:48] LABS: BUN Creatinine Ratio 10.7 (10-20); Calcium 8.6 mg/dl (8.5-10.1); Est GFR (African American) 85.2; Est GFR (Non-African American) 73.5
[2020-06-03] MEDS: rifAXIMin 550 MG TABLET PO SCH ×2 (08:21→20:57)
[2020-06-03] MEDS: DOXYCYCLINE HYCLATE 100 MG CAP PO SCH ×2 (08:21→20:57)
[2020-06-03] MEDS: ATORVASTATIN 40 MG TAB PO SCH (08:21)
[2020-06-03] MEDS: FUROSEMIDE 40 MG TAB PO SCH ×2 (08:21→16:24)
[2020-06-03] MEDS: FOLIC ACID 1 MG TAB PO SCH (08:21)
[2020-06-03] MEDS: ADVANCED PROBIOTIC 1250 MG CAPSULE PO SCH (08:22)
[2020-06-03] MEDS: predniSONE 20 MG TAB PO SCH (08:22)
[2020-06-03] MEDS: THIAMINE HCL 100 MG TAB PO SCH (08:22)
[2020-06-03] MEDS: MULTIVITAMIN TAB PO SCH (08:22)
[2020-06-03] MEDS: FERROUS SULFATE 325 MG TAB PO SCH ×2 (08:22→16:25)
[2020-06-03] MEDS: ASPIRIN 81 MG ECTAB PO SCH (08:22)
[2020-06-03] MEDS: LOSARTAN POTASSIUM 25 MG TAB PO SCH (08:23)
[2020-06-03] MEDS: ROFLUMILAST 500 MCG TAB PO SCH (08:23)
[2020-06-03] MEDS: SPIRONOLACTONE 100 MG TAB PO SCH (08:23)
[2020-06-03] MEDS: POTASSIUM CHLORIDE 10 MEQ TABCR PO SCH (08:24)
[2020-06-03] MEDS: PANTOprazole 40 MG TAB PO SCH ×2 (08:24→20:57)
[2020-06-03] MEDS: SERTRALINE HCL 50 MG TABLET PO SCH (08:24)
[2020-06-03] MEDS: FLUTICASONE/VILANTEROL 200/25MCG 14 PUFFS/INHALER INH SCH (08:25)
[2020-06-03] MEDS: busPIRone 5 MG TAB PO SCH ×2 (08:25→20:57)
[2020-06-03] MEDS: MAGNESIUM OXIDE 400 MG TAB PO SCH ×2 (08:25→20:57)
[2020-06-03] MEDS: DICYCLOMINE HCL 20 MG TAB PO SCH ×2 (08:25→20:57)
[2020-06-03] MEDS: UMECLIDINIUM BROMIDE 62.5MCG/BLISTER 7 PUFFS/INHALER INH SCH (08:25)
[2020-06-03] MEDS: LACTULOSE SYRUP 10 GM/15 ML BTL 960 ML PO SCH ×4 (08:26→20:57)
[2020-06-03] MEDS: PSYLLIUM 58.6% POWDER PACKET PO SCH (08:26)
[2020-06-03] MEDS: AMOXICILLIN/CLAVULANATE 875 MG TAB PO SCH ×2 (08:27→16:24)
--- NOTE | 2020-06-03 09:36 | Pulmonology Progress Note ---
Date of Service June 03, 2020 Assessment & Plan (1) Acute on chronic respiratory failure with hypoxia and hypercapnia: CT chest 05/06/2020 personally reviewed: Dependent atelectasis bilateral lower lobes, no clear lung infiltrate appreciated, no mediastinal adenopathy. Chest x-ray 05/31/2020 personally reviewed: Portable film, good respiratory effort, increased vascular markings, enlarged cardiac silhouette, bilateral costophrenic and cardiophrenic angles are clean. --Acute on chronic hypoxic respiratory failure Multifactorial Patient is on 6 L nasal cannula at baseline and 8 L on exertion COVID-19 PCR, influenza A/B/RSV negative 05/31/2020 Procalcitonin negative NT-BNP 137 06/02/2020 2D echo shows good ejection fraction, no diastolic dysfunction --Asthma COPD overlap syndrome Patient is on Symbicort and Spiriva along with Roflumilast at home would continue with the same on discharge Continue with Breo and Incruse while in the hospital Patient is on chronic prednisone 10 mg at home. There has been no benefit of chronic prednisone in patients with severe COPD. Will defer the management to outpatient pulmonary Lung transplant could be thought of given the severity of her underlying illness although given the history of liver cirrhosis this complicates things. Chronic azithromycin 250 mg thrice weekly should also be thought of as an outpatient. 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 --Ex smoker Quit approximately 6 months ago Advised to continue with abstinence Plan: Continue with diuretics to keep the patient negative balance. Continue with incentive spirometry BiPAP nightly and as needed shortness of breath Given procalcitonin negative. Recommend discontinuing amoxicillin. Continue with doxycycline for 5 days Continue with prednisone 20 mg for total of 3 doses and then go to her home dose Please note the above document was generated using voice recognition software. It may contain grammatical, syntax or spelling errors.Any formal questions or concerns about the content, text or information contained within the body of this dictation should be directly addressed to the provider for clarification. (2) Asthma: (3) COPD (chronic obstructive pulmonary disease): (4) COPD exacerbation: (5) Pulmonary hypertension: Admission and Anticipated Discharge Date Admission Date: June 02, 2020 Subjective Patient seen and examined at bedside. No acute distress, no adverse events overnight. Patient states that her breathing is better compared to when she came to the hospital. She does complain of generalized malaise and loss of appetite today. Denies any nausea, no abdominal pain. No chest pain, no headache, no dizziness. Urinating well. Positive bowel. Review of Systems Review of Systems: All systems reviewed & are unremarkable except as noted in Subjective Physical Exam Physical Exam: Constitutional: No acute distress HEENT: EOMI, PERRLA, thick neck Respiratory system: Decreased air entry bilaterally, no wheeze, no rhonchi, positive crackles bilateral lower lobes CVS: S1-S2 positive, no murmurs or gallops Abdomen: Soft, nontender, nondistended, positive bowel sounds x4, obese Extremities: +2 pulses bilaterally radialis/ dorsalis pedis, no cyanosis, no edema Neuro: Awake alert oriented x3 Psych: Normal mood and affect G/U: No Bacon Skin: no rashes, warm and dry Lymphatic: no cervical or axillary lymphadenopathy Results & Data Results & Data ([facility]) Vital Signs (Past 12 Hours) Vital Signs Temp Pulse Pulse Pulse Resp BP Pulse Ox 06/03/20 07:54 36.4 C L 80 18 122/65 95 06/03/20 07:12 71 18 96 06/03/20 03:47 37.1 C 78 20 112/66 94 06/03/20 01:30 83 06/03/20 01:07 79 20 94 06/03/20 00:49 36.8 C 80 18 114/53 L 93 06/03/20 07:00 06/03/20 08:28 PG Care Time/CCT Total # of Minutes Spent Total Time Spent with Patient: Total time spent is greater than 50% in coordination of care (as documented) at patient's floor/unit and/or counseling patient: Coding Level of Care Code 03661 Subseq Hosp Care Lvl 3 Diagnoses Acute on chronic respiratory failure with hypoxia and hypercapnia J96.21; J96.22 Asthma J45.909 COPD (chronic obstructive pulmonary disease) J44.9 COPD exacerbation J44.1 Pulmonary hypertension I27.20
[2020-06-03] MEDS: traMADol HCL 50 MG TABLET PO PRN (10:59)
--- NOTE | 2020-06-03 12:06 | Hospitalist Progress Note ---
Date of Service June 03, 2020 Assessment & Plan (1) Stroke-like symptom: per admitting service notes: This is a 54-year-old female who has significant past medical history of failure on 6 L of O2, COPD, cirrhosis, hepatic encephalopathy, MELVI chronic diastolic CHF, HTN, HLD, bipolar disorder history of migraine history of alcohol abuse, anemia of chronic disease, history of tobacco abuse, generalized anxiety disorder, GERD, hepatopulmonary syndrome who presents to ED secondary to right- sided numbness x1 day. Work up in ED unrevealing. Repeat Heat CT negative for acute abnormality. Signs/sx given ipsilateral do not coordinate with that of CVA; nonetheless will admit for stroke/neuro work up. Sx less likely related to bells palsy as there is no 7th cranial nerve deficit. Possible Migraine given sx of migraine 2 days ago. Prior MRI reveals small vessel disease, ? TIA Right sided facial numbness resolved, right hand and foot numbness about the same Brain MRI with contrast: no acute CVA recent CT angio 05/29: no significant stenosis ASA 81mg po daily started Neurologist consulted, possible protracted migraine with aura Recommend magnesium and vitamin b2 Still remains generally weak with weaker on the right sided extremities We will continue PT and OT evaluation (2) Chronic respiratory failure with hypoxia and hypercapnia: (3) COPD (chronic obstructive pulmonary disease): (+) Mild Acute Exacerbation- Acute Bronchitis, Possible Aspiration Pneumonitis baseline 6L of O2 CXR: mild basilar infiltrates Cepheid Covid Test: negative Improving gradually, but reports dyspnea with minimal exertion Remains euvolemic Appreciate pulmonary input and recommendation Continue Day # 4 Prednisone 40mg po daily, Nebs QID, Doxycycline + Augmentin with probiotics Continue O2, symbicort, daliresp, Spiriva Denies any shortness of breath at rest and clinically seems to be improved Usually on prednisone 10mg daily intermediate Follows Aura Dietrich pul (4) Electrolyte abnormality: Hypokalemia replaced with PO K (5) Chronic diastolic CHF (congestive heart failure): echo 05/14/20 EF 60 to 65%, left ventricular diastolic function normal, AV sclerosis without stenosis no evidence of pulmonary hypertension, intrapulmonary shunt noted Currently on Lasix, Aldactone and potassium secondary to cirrhosis -- euvolemic (6) HTN, goal below 140/90: Blood pressure mildly elevated, allow for permissive hypertension in setting of stroke work-up continue Lasix, Aldactone, and losartan -- BP improving monitor (7) Alcoholic cirrhosis: History of hepatic encephalopathy per patient's , patient has been taking her lactulose and has at least 3 BMs per day Continue Lasix, Aldactone, thiamine, folic acid and lactulose Currently compensated (8) Bipolar 1 disorder: Also depression and anxiety Mood stable Continue Lamictal, Zoloft, Buspar and trazodone (9) Anemia, chronic disease: h/h stable at 10.6 and 32.9 No signs or symptoms of bleeding (10) Abnormal CT scan, neck: Neck CTA from 05/29/20 revealed thyroid nodules and nodule of L parotid gland CT: 5. Bilateral thyroid nodules measure up to 1.5 cm. Nonemergent thyroid ultrasound is recommended in follow-up. 6. A 10 mm nodule is seen within the left parotid gland. Nonemergent ENT follow- up is recommended. Recommend non emergent follow up at discharge (11) DVT prophylaxis: Heparin SC SCD/TEDS Disposition: lives with at home PT/OT evaluation in progress patient and family would like for her to return home when medically stable, declining Rehab/SNF Follow up: PCP Dr. Crane upon discharge; follow up non emergent studies for thyroid and parotid gland Plan of care discussed by Dr Zapata in detail and at length with patient and her all questions answered They are understanding, agreeable, comfortable with the plan of care Will discuss with the Admission and Anticipated Discharge Date Admission Date: June 02, 2020 Subjective 06/03/2020 Patient was seen and examined in telemetry unit She is a 54-year-old obese female with significant past medical history of COPD on 6 L oxygen at home, cirrhosis, history of hepatic encephalopathy, MELVI, chronic diastolic heart failure, hypertension and hyperlipidemia, bipolar disorder and history of migraine was admitted with strokelike symptoms on 05/31/2019 She still complains to have right-sided extremity weakness without any right facial droop Denies any other symptoms except she remains generally weak and lethargic Review of Systems Review of Systems: All systems reviewed and are unremarkable except as noted below Neurologic: + generalized weakness (With right-sided weakness more than the left) Physical Exam Physical Exam: Lying in bed comfortably Constitutional: well developed, well nourished, + ill appearing and + morbidly obese Eyes: PERRL, conjunctivae normal, anicteric sclerae ENMT: external ear and nose normal, oropharynx normal Neck: trachea midline, no thyromegaly Respiratory: no respiratory distress Auscultation: lungs clear to auscultation bilaterally and + diminished lung sounds Cardiovascular: Rate/Rhythm: regular rate and regular rhythm Heart Sounds: no murmur Extremities: + edema (Bilateral leg edema about 1+) Gastrointestinal (Abdomen): Inspection/Auscultation: normal bowel sounds; abdomen not distended Percussion/Palpation: abdomen soft; abdomen nontender Musculoskeletal: No acute arthritis in any joint Neurologic: Alert, awake and oriented x3. Generally weak with right-sided extremities weaker than the left Psychiatric: A+Ox3, euthymic affect Lymphatic: no cervical or axillary lymphadenopathy Results & Data Results & Data ([facility]) Vital Signs (Past 12 Hours) Vital Signs Temp Pulse Pulse Pulse Resp BP Pulse Ox 06/03/20 07:54 36.4 C L 80 18 122/65 95 06/03/20 07:12 71 18 96 06/03/20 03:47 37.1 C 78 20 112/66 94 06/03/20 01:30 83 06/03/20 01:07 79 20 94 06/03/20 00:49 36.8 C 80 18 114/53 L 93 Laboratory Results Short CBC 06/03/20 Range/Units 07:00 WBC 6.24 (4.8-10.8) K/uL Hgb 9.8 L (12.0-16.0) g/dL Hct 30.9 L (37-47) % Plt Count 162 (130-400) K/uL BMP 06/03/20 06/03/20 07:00 08:28 Sodium 144 Potassium 3.4 L Chloride 113 H Carbon Dioxide 24 BUN 10 Creatinine 0.89 Glucose 93 Calcium 8.6 Medications Administered Current Inpatient Medications Acetaminophen (Acetaminophen 325 Mg Tab) 650 mg PO Q4H PRN PRN Reason: Pain or Fever Stop: 06/30/20 14:17 Last Admin: 06/01/20 11:55 Dose: 650 mg Documented by: Al Hydrox/Mg Hydrox/Simethicone (Aluminum/Magnesium Susp 30 Ml Udc) 15 ml PO Q4H PRN PRN Reason: Dyspepsia Stop: 06/30/20 14:17 Albuterol (Albuterol Hfa 8 Gm Inhaler) 2 puffs INH Q6H PRN PRN Reason: Wheezing Stop: 06/30/20 14:17 Amoxicillin/Clavulanate Potassium (Amoxicillin/Clavulanate 875 Mg Tab) 1 tab PO BIDM [facility] Stop: 06/08/20 16:59 Last Admin: 06/03/20 08:27 Dose: 1 tab Documented by: Aspirin (Aspirin 81 Mg Ectab) 81 mg PO DAILY [facility] Stop: 06/30/20 14:17 Last Admin: 06/03/20 08:22 Dose: 81 mg Documented by: Atorvastatin Calcium (Atorvastatin 40 Mg Tab) 40 mg PO QAM [facility] Stop: 07/01/20 08:59 Last Admin: 06/03/20 08:21 Dose: 40 mg Documented by: Buspirone HCl (Buspirone 5 Mg Tab) 5 mg PO BID [facility] Stop: 06/30/20 20:59 Last Admin: 06/03/20 08:25 Dose: 5 mg Documented by: Dicyclomine HCl (Dicyclomine Hcl 20 Mg Tab) 20 mg PO BID [facility] Stop: 06/30/20 20:59 Last Admin: 06/03/20 08:25 Dose: 20 mg Documented by: Doxycycline Hyclate (Doxycycline Hyclate 100 Mg Cap) 100 mg PO BID [facility] Stop: 06/07/20 20:59 Last Admin: 06/03/20 08:21 Dose: 100 mg Documented by: Famotidine (Famotidine 20 Mg Tab) 20 mg PO HS [facility] Stop: 06/30/20 20:59 Last Admin: 06/02/20 20:49 Dose: 20 mg Documented by: Ferrous Sulfate (Ferrous Sulfate 325 Mg Tab) 325 mg PO BIDM [facility] Stop: 06/30/20 16:59 Last Admin: 06/03/20 08:22 Dose: 325 mg Documented by: Fluticasone Propionate (Fluticasone Propionate Na Spr 16 Gm Btl) 2 sprays KOLE DAILY PRN PRN Reason: Allergy Symptoms Stop: 06/30/20 14:17 Fluticasone/Vilanterol (Fluticasone/Vilanterol 200/25mcg 14 Puffs/Inhaler) 1 puffs INH DAILY [facility] Stop: 07/01/20 08:59 Last Admin: 06/03/20 08:25 Dose: 1 puffs Documented by: Folic Acid (Folic Acid 1 Mg Tab) 1 mg PO QAM [facility] Stop: 07/01/20 08:59 Last Admin: 06/03/20 08:21 Dose: 1 mg Documented by: Furosemide (Furosemide 40 Mg Tab) 40 mg PO BID17 [facility] Stop: 06/30/20 16:59 Last Admin: 06/03/20 08:21 Dose: 40 mg Documented by: Heparin Sodium (Porcine) (Heparin Sod 5,000 Unit/0.5 Ml Vial) 5,000 units SQ Q8 [facility] Stop: 07/01/20 21:59 Last Admin: 06/03/20 04:04 Dose: Not Given Documented by: Hydroxyzine HCl (Hydroxyzine Hcl 25 Mg Tab) 25 mg PO BID PRN PRN Reason: Anxiety Stop: 06/30/20 14:17 Last Admin: 06/02/20 08:27 Dose: 25 mg Documented by: Ipratropium Rupert (Ipratropium Rupert Neb Soln 0.02% 2.5 Ml Vial) 0.5 mg INH Q4H PRN PRN Reason: shortness of breath or wheezing Stop: 06/30/20 14:17 Ipratropium Rupert (Ipratropium Rupert Neb Soln 0.02% 2.5 Ml Vial) 0.5 mg INH Q6R [facility] Stop: 06/30/20 18:59 Last Admin: 06/03/20 07:12 Dose: 0.5 mg Documented by: Lactobacillus Acidoph/Casei/Rhamnos (Advanced Probiotic 1250 Mg Capsule) 2 cap PO DAILY [facility] Stop: 07/01/20 15:59 Last Admin: 06/03/20 08:22 Dose: 2 cap Documented by: Lactulose (Lactulose Syrup 10 Gm/15 Ml Btl 960 Ml) 40 gm PO QID [facility] Stop: 06/30/20 16:59 Last Admin: 06/03/20 08:26 Dose: 40 gm Documented by: Lamotrigine (Lamotrigine 100 Mg Tab) 150 mg PO HS [facility] Stop: 06/30/20 20:59 Last Admin: 06/02/20 20:49 Dose: 150 mg Documented by: Levalbuterol HCl (Levalbuterol 1.25mg/0.5ml Neb) 1.25 mg INH Q4H PRN PRN Reason: shortness of breath or wheezing Stop: 06/30/20 14:17 Levalbuterol HCl (Levalbuterol 1.25mg/0.5ml Neb) 1.25 mg INH Q6R [facility] Stop: 06/30/20 18:59 Last Admin: 06/03/20 07:12 Dose: 1.25 mg Documented by: Losartan Potassium (Losartan Potassium 25 Mg Tab) 25 mg PO QAM [facility] Stop: 07/01/20 08:59 Last Admin: 06/03/20 08:23 Dose: 25 mg Documented by: Magnesium Hydroxide (Magnesium Hydroxide Susp 30 Ml Udc) 30 ml PO Q12H PRN PRN Reason: Constipation Stop: 06/30/20 14:17 Magnesium Oxide (Magnesium Oxide 400 Mg Tab) 400 mg PO BID [facility] Stop: 06/30/20 20:59 Last Admin: 06/03/20 08:25 Dose: 400 mg Documented by: Montelukast Sodium (Montelukast Sodium 10 Mg Tablet) 10 mg PO HS [facility] Stop: 06/30/20 20:59 Last Admin: 06/02/20 20:49 Dose: 10 mg Documented by: Multivitamins (Multivitamin Tab) 1 tab PO [facility] Stop: 07/01/20 08:59 Last Admin: 06/03/20 08:22 Dose: 1 tab Documented by: Ondansetron HCl (Ondansetron Inj 2 Mg/Ml 2 Ml Vial) 4 mg IV Q6H PRN PRN Reason: Nausea Stop: 06/30/20 14:17 Pantoprazole Sodium (Pantoprazole 40 Mg Tab) 40 mg PO BID [facility] Stop: 06/30/20 20:59 Last Admin: 06/03/20 08:24 Dose: 40 mg Documented by: Polyethylene Glycol (Polyethylene (Miralax) 17 Gm Pack) 17 gm PO DAILY PRN PRN Reason: Constipation Stop: 06/30/20 14:17 Potassium Chloride (Potassium Chloride 10 Meq Tabcr) [facility] Stop: 07/01/20 08:59 Last Admin: 06/03/20 08:24 Dose: 10 meq Documented by: Prednisone (Prednisone 20 Mg Tab) 20 mg PO DAILY [facility] Stop: 06/05/20 09:01 Last Admin: 06/03/20 08:22 Dose: 20 mg Documented by: Psyllium Hydrophilic Mucilloid (Psyllium 58.6% Powder Packet) 1 pkt PO DAILY [facility] Stop: 07/01/20 08:59 Last Admin: 06/03/20 08:26 Dose: 1 pkt Documented by: Rifaximin (Rifaximin 550 Mg Tablet) 550 mg PO BID [facility] Stop: 06/30/20 20:59 Last Admin: 06/03/20 08:21 Dose: 550 mg Documented by: Roflumilast (Roflumilast 500 Mcg Tab) 500 mcg PO DAILY [facility] Stop: 07/01/20 08:59 Last Admin: 06/03/20 08:23 Dose: 500 mcg Documented by: Ropinirole HCl (Ropinirole Hcl 0.25 Mg Tablet) 0.25 mg PO [facility] Stop: 06/30/20 20:59 Last Admin: 06/02/20 20:49 Dose: 0.25 mg Documented by: Sertraline HCl (Sertraline Hcl 50 Mg Tablet) 75 mg PO QAM [facility] Stop: 07/01/20 08:59 Last Admin: 06/03/20 08:24 Dose: 75 mg Documented by: Spironolactone (Spironolactone 100 Mg Tab) 150 mg PO QAM [facility] Stop: 07/01/20 08:59 Last Admin: 06/03/20 08:23 Dose: 150 mg Documented by: Thiamine HCl (Thiamine Hcl 100 Mg Tab) 100 mg PO QAM [facility] Stop: 07/01/20 08:59 Last Admin: 06/03/20 08:22 Dose: 100 mg Documented by: Tramadol HCl (Tramadol Hcl 50 Mg Tablet) 50 mg PO BID PRN PRN Reason: Pain, Severe Stop: 06/30/20 14:17 Last Admin: 06/03/20 10:59 Dose: 50 mg Documented by: Trazodone HCl (Trazodone Hcl 50 Mg Tab) 150 mg PO [facility] Stop: 06/30/20 20:59 Last Admin: 06/02/20 20:49 Dose: 150 mg Documented by: Umeclidinium Rupert (Umeclidinium Rupert 62.5mcg/Blister 7 Puffs/Inhaler) 1 puffs INH DAILY [facility] Stop: 07/01/20 08:59 Last Admin: 06/03/20 08:25 Dose: 1 puffs Documented by:
[2020-06-03] MEDS ORDERED: POTASSIUM CHLORIDE CRTAB 20 MEQ TABCR PO ONE (17:00)
[2020-06-03] MEDS: traZODone HCL 50 MG TAB PO SCH (20:56)
[2020-06-03] MEDS: lamoTRIgine 100 MG TAB PO SCH (20:56)
[2020-06-03] MEDS: MONTELUKAST SODIUM 10 MG TABLET PO SCH (20:57)
[2020-06-03] MEDS: FAMOTIDINE 20 MG TAB PO SCH (20:57)
[2020-06-03] MEDS: rOPINIRole HCL 0.25 MG TABLET PO SCH (20:57)
[2020-06-04] MEDS: LEVALBUTEROL 1.25MG/0.5ML NEB INH SCH ×3 (00:42→13:44)
[2020-06-04] MEDS: IPRATROPIUM BROMIDE NEB SOLN 0.02% 2.5 ML VIAL INH SCH ×3 (00:42→13:44)
[2020-06-04] MEDS: HEPARIN SOD 5,000 UNIT/0.5 ML VIAL SQ SCH (05:50)
[2020-06-04 07:07] LABS: BUN Creatinine Ratio 11.6 (10-20); Calcium 8.5 mg/dl (8.5-10.1); Creatinine Clr Calc Pharmacy 87.1 ml/min; Est GFR (African American) 78.7; Est GFR (Non-African American) 67.9; Magnesium 2.1 mg/dl (1.8-2.4); Phosphorus 4.5 mg/dl (2.5-4.9)
[2020-06-04] MEDS: rifAXIMin 550 MG TABLET PO SCH (08:29)
[2020-06-04] MEDS: PANTOprazole 40 MG TAB PO SCH (08:29)
[2020-06-04] MEDS: POTASSIUM CHLORIDE 10 MEQ TABCR PO SCH (08:29)
[2020-06-04] MEDS: FUROSEMIDE 40 MG TAB PO SCH (08:29)
[2020-06-04] MEDS: MAGNESIUM OXIDE 400 MG TAB PO SCH (08:30)
[2020-06-04] MEDS: ROFLUMILAST 500 MCG TAB PO SCH (08:30)
[2020-06-04] MEDS: FERROUS SULFATE 325 MG TAB PO SCH (08:30)
[2020-06-04] MEDS: LOSARTAN POTASSIUM 25 MG TAB PO SCH (08:30)
[2020-06-04] MEDS: DOXYCYCLINE HYCLATE 100 MG CAP PO SCH (08:30)
[2020-06-04] MEDS: SPIRONOLACTONE 100 MG TAB PO SCH (08:30)
[2020-06-04] MEDS: ADVANCED PROBIOTIC 1250 MG CAPSULE PO SCH (08:30)
[2020-06-04] MEDS: busPIRone 5 MG TAB PO SCH (08:30)
[2020-06-04] MEDS: DICYCLOMINE HCL 20 MG TAB PO SCH (08:30)
[2020-06-04] MEDS: MULTIVITAMIN TAB PO SCH (08:31)
[2020-06-04] MEDS: ATORVASTATIN 40 MG TAB PO SCH (08:31)
[2020-06-04] MEDS: predniSONE 20 MG TAB PO SCH (08:31)
[2020-06-04] MEDS: ASPIRIN 81 MG ECTAB PO SCH (08:31)
[2020-06-04] MEDS: SERTRALINE HCL 50 MG TABLET PO SCH (08:31)
[2020-06-04] MEDS: PSYLLIUM 58.6% POWDER PACKET PO SCH (08:31)
[2020-06-04] MEDS: THIAMINE HCL 100 MG TAB PO SCH (08:31)
[2020-06-04] MEDS: FLUTICASONE/VILANTEROL 200/25MCG 14 PUFFS/INHALER INH SCH (08:32)
[2020-06-04] MEDS: UMECLIDINIUM BROMIDE 62.5MCG/BLISTER 7 PUFFS/INHALER INH SCH (08:32)
[2020-06-04] MEDS: LACTULOSE SYRUP 10 GM/15 ML BTL 960 ML PO SCH ×2 (08:32→13:02)
[2020-06-04] MEDS: AMOXICILLIN/CLAVULANATE 875 MG TAB PO SCH (08:32)
[2020-06-04] MEDS: FOLIC ACID 1 MG TAB PO SCH (08:32)
--- NOTE | 2020-06-04 09:22 | Pulmonology Progress Note ---
Date of Service June 04, 2020 Assessment & Plan (1) Acute on chronic respiratory failure with hypoxia and hypercapnia: CT chest 05/06/2020 personally reviewed: Dependent atelectasis bilateral lower lobes, no clear lung infiltrate appreciated, no mediastinal adenopathy. Chest x-ray 05/31/2020 personally reviewed: Portable film, good respiratory effort, increased vascular markings, enlarged cardiac silhouette, bilateral costophrenic and cardiophrenic angles are clean. --Acute on chronic hypoxic respiratory failure Multifactorial Patient is on 6 L nasal cannula at baseline and 8 L on exertion COVID-19 PCR, influenza A/B/RSV negative 05/31/2020 Procalcitonin negative NT-BNP 137 06/02/2020 2D echo shows good ejection fraction, no diastolic dysfunction --Asthma COPD overlap syndrome Patient is on Symbicort and Spiriva along with Roflumilast at home would continue with the same on discharge Continue with Breo and Incruse while in the hospital Patient is on chronic prednisone 10 mg at home. There has been no benefit of chronic prednisone in patients with severe COPD. Will defer the management to outpatient pulmonary Lung transplant could be thought of given the severity of her underlying illness although given the history of liver cirrhosis this complicates things. Chronic azithromycin 250 mg thrice weekly should also be thought of as an outpatient. Patient's QTC was 464 on 05/31/2020 --MELVI with morbid obesity Patient does not have CPAP at home Needs outpatient sleep study to be set up as soon as possible BiPAP nightly while in the hospital --Pulmonary hypertension RVSP 47 on 2D echo done 06/02/20 Given the patient has history of liver cirrhosis type I pulmonary hypertension should also be thought of on top of type III Patient's underlying morbid obesity and MELVI OHS is also playing a role Recommend outpatient pulmonary hypertension work-up with her telecom coordinator. --Ex smoker Quit approximately 6 months ago Advised to continue with abstinence Plan: Continue with diuretics to keep the patient negative balance Continue with incentive spirometry BiPAP nightly Continue with prednisone 20 mg for total of 2 doses and then go to her home dose Patient is back to her baseline when it comes to her respiratory status. Needs outpatient polysomnography as soon as possible. Follow-up with [facility] telecom coordinator as an outpatient I discussed the case with patient's on her request yesterday. All questions inquiries of the patient's were answered. No further recommendations from pulmonary perspective. Is recall if needed. Please note the above document was generated using voice recognition software. It may contain grammatical, syntax or spelling errors.Any formal questions or concerns about the content, text or information contained within the body of this dictation should be directly addressed to the provider for clarification. (2) Asthma: (3) COPD (chronic obstructive pulmonary disease): (4) COPD exacerbation: (5) Pulmonary hypertension: Admission and Anticipated Discharge Date Admission Date: June 02, 2020 Subjective Patient seen and examined at bedside. No acute distress, no adverse events overnight Patient used BiPAP overnight. She tolerated well. She actually liked it. Shortness of breath is improved. Denies any chest pain, no cough. No abdominal pain. No diarrhea. Review of Systems Review of Systems: All systems reviewed & are unremarkable except as noted in Subjective Physical Exam Physical Exam: Constitutional: No acute distress HEENT: EOMI, PERRLA, thick neck Respiratory system: Decreased air entry bilaterally, no wheeze, no rhonchi, positive crackles bilateral lower lobes CVS: S1-S2 positive, no murmurs or gallops Abdomen: Soft, nontender, nondistended, positive bowel sounds x4, obese Extremities: +2 pulses bilaterally radialis/ dorsalis pedis, no cyanosis, no edema Neuro: Awake alert oriented x3 Psych: Normal mood and affect G/U: No Bacon Skin: no rashes, warm and dry Lymphatic: no cervical or axillary lymphadenopathy Results & Data Results & Data ([facility]) Vital Signs (Past 12 Hours) Vital Signs Temp Pulse Pulse Pulse Resp BP Pulse Ox 06/04/20 07:48 36.8 C 78 16 130/64 96 06/04/20 07:33 83 06/04/20 07:15 79 18 94 06/04/20 04:30 36.7 C 74 19 126/72 95 06/04/20 02:50 79 18 93 06/04/20 00:42 70 70 18 93 06/04/20 00:19 36.6 C 70 20 118/65 94 06/03/20 22:46 84 06/03/20 22:29 71 12 96 06/03/20 07:00 06/04/20 05:51 PG Care Time/CCT Total # of Minutes Spent Total Time Spent with Patient: Total time spent is greater than 50% in coordination of care (as documented) at patient's floor/unit and/or counseling patient: Coding Level of Care Code 17746 Subseq Hosp Care Lvl 3 Diagnoses Acute on chronic respiratory failure with hypoxia and hypercapnia J96.21; J96.22 Asthma J45.909 COPD (chronic obstructive pulmonary disease) J44.9 COPD exacerbation J44.1 Pulmonary hypertension I27.20
[2020-06-04] MEDS: hydrOXYzine HCl 25 MG TAB PO PRN (11:33)
--- NOTE | 2020-06-04 11:37 | Hospitalist Progress Note ---
Date of Service June 04, 2020 Assessment & Plan (1) Stroke-like symptom: per admitting service notes: This is a 54-year-old female who has significant past medical history of failure on 6 L of O2, COPD, cirrhosis, hepatic encephalopathy, MELVI chronic diastolic CHF, HTN, HLD, bipolar disorder history of migraine history of alcohol abuse, anemia of chronic disease, history of tobacco abuse, generalized anxiety disorder, GERD, hepatopulmonary syndrome who presents to ED secondary to right- sided numbness x1 day. Work up in ED unrevealing. Repeat Heat CT negative for acute abnormality. Signs/sx given ipsilateral do not coordinate with that of CVA; nonetheless will admit for stroke/neuro work up. Sx less likely related to bells palsy as there is no 7th cranial nerve deficit. Possible Migraine given sx of migraine 2 days ago. Prior MRI reveals small vessel disease, ? TIA Right sided facial numbness resolved, right hand and foot numbness about the same Brain MRI with contrast: no acute CVA recent CT angio 05/29: no significant stenosis ASA 81mg po daily started Neurologist consulted, possible protracted migraine with aura Recommend magnesium and vitamin b2 Still remains generally weak with weaker on the right sided extremities We will continue PT and OT evaluation-recommended home with continued physical therapy/rehab She will be discharged home this afternoon Advised to take extreme precaution to avoid falls (2) Chronic respiratory failure with hypoxia and hypercapnia: (3) COPD (chronic obstructive pulmonary disease): (+) Mild Acute Exacerbation- Acute Bronchitis, Possible Aspiration Pneumonitis baseline 6L of O2 CXR: mild basilar infiltrates Cepheid Covid Test: negative Improving gradually, but reports dyspnea with minimal exertion Remains euvolemic Appreciate pulmonary input and recommendation Continue Day # 5 Prednisone 40mg po daily, Nebs QID, Doxycycline + Augmentin with probiotics Continue O2, symbicort, daliresp, Spiriva Denies any shortness of breath at rest and clinically seems to be improved No further recommendations from the pulmonary service Advised to have outpatient polysomnography as soon as possible an outpatient appointment with the grain shipper for continuation of care 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 (4) Electrolyte abnormality: Hypokalemia replaced with PO K (5) Chronic diastolic CHF (congestive heart failure): echo 05/14/20 EF 60 to 65%, left ventricular diastolic function normal, AV sclerosis without stenosis no evidence of pulmonary hypertension, intrapulmonary shunt noted Currently on Lasix, Aldactone and potassium secondary to cirrhosis -- euvolemic -We will continue Lasix as an outpatient (6) HTN, goal below 140/90: Blood pressure mildly elevated, allow for permissive hypertension in setting of stroke work-up continue Lasix, Aldactone, and losartan -- BP improving monitor (7) Alcoholic cirrhosis: History of hepatic encephalopathy per patient's , patient has been taking her lactulose and has at least 3 BMs per day Continue Lasix, Aldactone, thiamine, folic acid and lactulose Currently compensated (8) Bipolar 1 disorder: Also depression and anxiety Mood stable Continue Lamictal, Zoloft, Buspar and trazodone (9) Anemia, chronic disease: h/h stable at 10.6 and 32.9 No signs or symptoms of bleeding (10) Abnormal CT scan, neck: Neck CTA from 05/29/20 revealed thyroid nodules and nodule of L parotid gland CT: 5. Bilateral thyroid nodules measure up to 1.5 cm. Nonemergent thyroid ultrasound is recommended in follow-up. 6. A 10 mm nodule is seen within the left parotid gland. Nonemergent ENT follow- up is recommended. Recommend non emergent follow up at discharge (11) DVT prophylaxis: Heparin SC SCD/TEDS Disposition: lives with at home PT/OT evaluation in progress patient and family would like for her to return home when medically stable, declining Rehab/SNF Follow up: PCP Dr. Crane upon discharge; follow up non emergent studies for thyroid and parotid gland Plan of care discussed by Dr Zapata in detail and at length with patient and her all questions answered They are understanding, agreeable, comfortable with the plan of care Discussed with her yesterday 06/03/2020 She will be discharged home this afternoon Admission and Anticipated Discharge Date Admission Date: June 02, 2020 Subjective 06/03/2020 Patient was seen and examined in telemetry unit She is a 54-year-old obese female with significant past medical history of COPD on 6 L oxygen at home, cirrhosis, history of hepatic encephalopathy, MELVI, chronic diastolic heart failure, hypertension and hyperlipidemia, bipolar disorder and history of migraine was admitted with strokelike symptoms on 05/31/2019 She still complains to have right-sided extremity weakness without any right facial droop Denies any other symptoms except she remains generally weak and lethargic 06/04/2020 The patient was seen and examined in telemetry unit She looks much better today but he still complains to have numbness and weakness involving right-sided extremities mostly the right upper extremity Her shortness of breath is improved She has been getting physical therapy and says that she is ready to be discharged Review of Systems Review of Systems: All systems reviewed and are unremarkable except as noted below Neurologic: + generalized weakness (With right-sided weakness more than the left) Physical Exam Physical Exam: Lying in bed comfortably Constitutional: well developed, well nourished and + morbidly obese; not ill appearing Eyes: PERRL, conjunctivae normal, anicteric sclerae ENMT: external ear and nose normal, oropharynx normal Neck: trachea midline, no thyromegaly Respiratory: no respiratory distress Auscultation: + diminished lung sounds and + crackles (Minimal crackles at the bases) Cardiovascular: Rate/Rhythm: regular rate and regular rhythm Heart Sounds: no murmur Extremities: + edema (Bilateral leg edema about 1+) Gastrointestinal (Abdomen): Inspection/Auscultation: normal bowel sounds; abdomen not distended Percussion/Palpation: abdomen soft; abdomen nontender Musculoskeletal: No acute arthritis in any joint Neurologic: Alert, awake and oriented x3. Still has some complaints of right- sided upper extremity weakness Psychiatric: A+Ox3, euthymic affect Lymphatic: no cervical or axillary lymphadenopathy Results & Data Results & Data ([facility]) Vital Signs (Past 12 Hours) Vital Signs Temp Pulse Pulse Pulse Resp BP Pulse Ox 06/04/20 07:48 36.8 C 78 16 130/64 96 06/04/20 07:33 83 06/04/20 07:15 79 18 94 06/04/20 04:30 36.7 C 74 19 126/72 95 06/04/20 02:50 79 18 93 06/04/20 00:42 70 70 18 93 06/04/20 00:19 36.6 C 70 20 118/65 94 Laboratory Results [facility] 06/04/20 05:51 Sodium 145 Potassium 4.0 D Chloride 111 H Carbon Dioxide 29 BUN 11 Creatinine 0.95 Glucose 86 Calcium 8.5 Medications Administered Current Inpatient Medications Acetaminophen (Acetaminophen 325 Mg Tab) 650 mg PO Q4H PRN PRN Reason: Pain or Fever Stop: 06/30/20 14:17 Last Admin: 06/01/20 11:55 Dose: 650 mg Documented by: Al Hydrox/Mg Hydrox/Simethicone (Aluminum/Magnesium Susp 30 Ml Udc) 15 ml PO Q4H PRN PRN Reason: Dyspepsia Stop: 06/30/20 14:17 Albuterol (Albuterol Hfa 8 Gm Inhaler) 2 puffs INH Q6H PRN PRN Reason: Wheezing Stop: 06/30/20 14:17 Amoxicillin/Clavulanate Potassium (Amoxicillin/Clavulanate 875 Mg Tab) 1 tab PO BIDM [facility] Stop: 06/08/20 16:59 Last Admin: 06/04/20 08:32 Dose: 1 tab Documented by: Aspirin (Aspirin 81 Mg Ectab) 81 mg PO DAILY [facility] Stop: 06/30/20 14:17 Last Admin: 06/04/20 08:31 Dose: 81 mg Documented by: Atorvastatin Calcium (Atorvastatin 40 Mg Tab) 40 mg PO QAM [facility] Stop: 07/01/20 08:59 Last Admin: 06/04/20 08:31 Dose: 40 mg Documented by: Buspirone HCl (Buspirone 5 Mg Tab) 5 mg PO BID [facility] Stop: 06/30/20 20:59 Last Admin: 06/04/20 08:30 Dose: 5 mg Documented by: Dicyclomine HCl (Dicyclomine Hcl 20 Mg Tab) 20 mg PO BID [facility] Stop: 06/30/20 20:59 Last Admin: 06/04/20 08:30 Dose: 20 mg Documented by: Doxycycline Hyclate (Doxycycline Hyclate 100 Mg Cap) 100 mg PO BID [facility] Stop: 06/07/20 20:59 Last Admin: 06/04/20 08:30 Dose: 100 mg Documented by: Famotidine (Famotidine 20 Mg Tab) 20 mg PO [facility] Stop: 06/30/20 20:59 Last Admin: 06/03/20 20:57 Dose: 20 mg Documented by: Ferrous Sulfate (Ferrous Sulfate 325 Mg Tab) 325 mg PO BIDM [facility] Stop: 06/30/20 16:59 Last Admin: 06/04/20 08:30 Dose: 325 mg Documented by: Fluticasone Propionate (Fluticasone Propionate Na Spr 16 Gm Btl) 2 sprays KOLE DAILY PRN PRN Reason: Allergy Symptoms Stop: 06/30/20 14:17 Fluticasone/Vilanterol (Fluticasone/Vilanterol 200/25mcg 14 Puffs/Inhaler) 1 puffs INH DAILY [facility] Stop: 07/01/20 08:59 Last Admin: 06/04/20 08:32 Dose: 1 puffs Documented by: Folic Acid (Folic Acid 1 Mg Tab) 1 mg PO QAM [facility] Stop: 07/01/20 08:59 Last Admin: 06/04/20 08:32 Dose: 1 mg Documented by: Furosemide (Furosemide 40 Mg Tab) 40 mg PO BID17 [facility] Stop: 06/30/20 16:59 Last Admin: 06/04/20 08:29 Dose: 40 mg Documented by: Heparin Sodium (Porcine) (Heparin Sod 5,000 Unit/0.5 Ml Vial) 5,000 units SQ Q8 [facility] Stop: 07/01/20 21:59 Last Admin: 06/04/20 05:50 Dose: 5,000 units Documented by: Hydroxyzine HCl (Hydroxyzine Hcl 25 Mg Tab) 25 mg PO BID PRN PRN Reason: Anxiety Stop: 06/30/20 14:17 Last Admin: 06/02/20 08:27 Dose: 25 mg Documented by: Ipratropium Madison (Ipratropium Madison Neb Soln 0.02% 2.5 Ml Vial) 0.5 mg INH Q4H PRN PRN Reason: shortness of breath or wheezing Stop: 06/30/20 14:17 Ipratropium Madison (Ipratropium Madison Neb Soln 0.02% 2.5 Ml Vial) 0.5 mg INH Q6R [facility] Stop: 06/30/20 18:59 Last Admin: 06/04/20 07:15 Dose: 0.5 mg Documented by: Lactobacillus Acidoph/Casei/Rhamnos (Advanced Probiotic 1250 Mg Capsule) 2 cap PO DAILY [facility] Stop: 07/01/20 15:59 Last Admin: 06/04/20 08:30 Dose: 2 cap Documented by: Lactulose (Lactulose Syrup 10 Gm/15 Ml Btl 960 Ml) 40 gm PO QID [facility] Stop: 06/30/20 16:59 Last Admin: 06/04/20 08:32 Dose: 40 gm Documented by: Lamotrigine (Lamotrigine 100 Mg Tab) 150 mg PO HS [facility] Stop: 06/30/20 20:59 Last Admin: 06/03/20 20:56 Dose: 150 mg Documented by: Levalbuterol HCl (Levalbuterol 1.25mg/0.5ml Neb) 1.25 mg INH Q4H PRN PRN Reason: shortness of breath or wheezing Stop: 06/30/20 14:17 Levalbuterol HCl (Levalbuterol 1.25mg/0.5ml Neb) 1.25 mg INH Q6R [facility] Stop: 06/30/20 18:59 Last Admin: 06/04/20 07:15 Dose: 1.25 mg Documented by: Losartan Potassium (Losartan Potassium 25 Mg Tab) [facility] Stop: 07/01/20 08:59 Last Admin: 06/04/20 08:30 Dose: 25 mg Documented by: Magnesium Hydroxide (Magnesium Hydroxide Susp 30 Ml Udc) 30 ml PO Q12H PRN PRN Reason: Constipation Stop: 06/30/20 14:17 Magnesium Oxide (Magnesium Oxide 400 Mg Tab) 400 mg PO BID [facility] Stop: 06/30/20 20:59 Last Admin: 06/04/20 08:30 Dose: 400 mg Documented by: Montelukast Sodium (Montelukast Sodium 10 Mg Tablet) 10 mg PO [facility] Stop: 06/30/20 20:59 Last Admin: 06/03/20 20:57 Dose: 10 mg Documented by: Multivitamins (Multivitamin Tab) 1 tab PO [facility] Stop: 07/01/20 08:59 Last Admin: 06/04/20 08:31 Dose: 1 tab Documented by: Ondansetron HCl (Ondansetron Inj 2 Mg/Ml 2 Ml Vial) 4 mg IV Q6H PRN PRN Reason: Nausea Stop: 06/30/20 14:17 Pantoprazole Sodium (Pantoprazole 40 Mg Tab) 40 mg PO BID [facility] Stop: 06/30/20 20:59 Last Admin: 06/04/20 08:29 Dose: 40 mg Documented by: Polyethylene Glycol (Polyethylene (Miralax) 17 Gm Pack) 17 gm PO DAILY PRN PRN Reason: Constipation Stop: 06/30/20 14:17 Potassium Chloride (Potassium Chloride 10 Meq Tabcr) 10 meq PO [facility] Stop: 07/01/20 08:59 Last Admin: 06/04/20 08:29 Dose: 10 meq Documented by: Prednisone (Prednisone 20 Mg Tab) 20 mg PO DAILY [facility] Stop: 06/05/20 09:01 Last Admin: 06/04/20 08:31 Dose: 20 mg Documented by: Psyllium Hydrophilic Mucilloid (Psyllium 58.6% Powder Packet) 1 pkt PO DAILY [facility] Stop: 07/01/20 08:59 Last Admin: 06/04/20 08:31 Dose: 1 pkt Documented by: Rifaximin (Rifaximin 550 Mg Tablet) 550 mg PO BID [facility] Stop: 06/30/20 20:59 Last Admin: 06/04/20 08:29 Dose: 550 mg Documented by: Roflumilast (Roflumilast 500 Mcg Tab) 500 mcg PO DAILY [facility] Stop: 07/01/20 08:59 Last Admin: 06/04/20 08:30 Dose: 500 mcg Documented by: Ropinirole HCl (Ropinirole Hcl 0.25 Mg Tablet) 0.25 mg PO [facility] Stop: 06/30/20 20:59 Last Admin: 06/03/20 20:57 Dose: 0.25 mg Documented by: Sertraline HCl (Sertraline Hcl 50 Mg Tablet) 75 mg PO [facility] Stop: 07/01/20 08:59 Last Admin: 06/04/20 08:31 Dose: 75 mg Documented by: Spironolactone (Spironolactone 100 Mg Tab) 150 mg PO [facility] Stop: 07/01/20 08:59 Last Admin: 06/04/20 08:30 Dose: 150 mg Documented by: Thiamine HCl (Thiamine Hcl 100 Mg Tab) 100 mg PO [facility] Stop: 07/01/20 08:59 Last Admin: 06/04/20 08:31 Dose: 100 mg Documented by: Tramadol HCl (Tramadol Hcl 50 Mg Tablet) 50 mg PO BID PRN PRN Reason: Pain, Severe Stop: 06/30/20 14:17 Last Admin: 06/03/20 10:59 Dose: 50 mg Documented by: Trazodone HCl (Trazodone Hcl 50 Mg Tab) 150 mg PO [facility] Stop: 06/30/20 20:59 Last Admin: 06/03/20 20:56 Dose: 150 mg Documented by: Umeclidinium Madison (Umeclidinium Madison 62.5mcg/Blister 7 Puffs/Inhaler) 1 p uffs INH DAILY [facility] Stop: 07/01/20 08:59 Last Admin: 06/04/20 08:32 Dose: 1 puffs Documented by:
[2020-06-04] MEDS: ACETAMINOPHEN 325 MG TAB PO PRN (13:01)
--- NOTE | 2020-06-05 09:13 | Discharge Summary ---
Date of Service June 05, 2020 Admission HPI Per Admitting Provider This is a 54-year-old female who has significant past medical history of failure on 6 L of O2, COPD, cirrhosis, hepatic encephalopathy, MELVI chronic diastolic CHF, HTN, HLD, bipolar disorder history of migraine history of alcohol abuse, anemia of chronic disease, history of tobacco abuse, generalized anxiety disorder, GERD, hepatopulmonary syndrome who presents to ED secondary to right- sided numbness x1 day. She states that she woke up this morning with numbness to right cheek as well as inability to feel right arm or leg. She denies any lianet weakness, slurred speech or falling. She did feel that the right side of her face was swollen and she had some drool coming out right side. She further complains of lightheadedness and dizziness but no syncope. Of significance she was seen and evaluated in ED on 05/29 secondary to right facial droop. At that time she underwent a stroke evaluation and had CTA of head and neck which was not clinically significant. She also had MRI brain which revealed likely small vessel disease but no acute CVA. 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 She did begin this but without improvement of symptoms. At that time she also had a headache on the right side of her head. History of migraine which felt similar. She was treated with migraine cocktail which improved headache. She denies any recent illness, fever, chills, sweats, headache, change in vision, change in hearing, difficulty swallowing, chest pain, palpitations, nausea, vomiting, abdominal pain, dysuria, increased urgency or frequency with urination, melena or hematochezia. She does have chronic shortness of breath secondary to COPD but feels is unchanged. She continues to remain abstinent from smoking/tobacco and alcohol. She denies any lower extremity swelling but does feel she does have some distention to abdomen. She has been having 2-3 bowel movements daily and has been compliant with her lactulose. She lives at home with her and son. Her daughter is her rip sawyer and takes care of her medications. She did take her morning medications. Admission Exam Per Admitting Provider VS noted and reviewed oriented x 3, not in distress, speaks in sentences with no effort nor accessory muscle use normal rate, regular rhythm, no murmurs diminished breath sounds bilaterally, no rales/wheezing non distended, soft, nontender no bipedal edema, erythema, warmth no neuro deficits Principal Diagnosis Right-sided numbness, stroke has been ruled out,protracted migraine with aura, acute on chronic respiratory failure with hypoxia and hypercapnia, COPD/asthma, MELVI, pulmonary hypertension,Chronic diastolic CHF , alcoholic cirrhosis Discharge Exam Constitutional well developed, well nourished and + morbidly obese; not ill appearing Eyes PERRL, conjunctivae normal, anicteric sclerae ENMT external ear and nose normal, oropharynx normal Neck trachea midline, no thyromegaly Respiratory no respiratory distress Auscultation: + diminished lung sounds and + crackles (Minimal crackles at the bases) Cardiovascular Rate/Rhythm: regular rate and regular rhythm Heart Sounds: no murmur Extremities: + edema (Bilateral leg edema about 1+) Gastrointestinal (Abdomen) Inspection/Auscultation: normal bowel sounds; abdomen not distended Percussion/Palpation: abdomen soft; abdomen nontender Psychiatric A+Ox3, euthymic affect Lymphatic no cervical or axillary lymphadenopathy Discharge Data Allergies Allergy/AdvReac Type Severity Reaction Status Date / Time strawberry Allergy Severe HIVES Verified 05/31/20 12:19 bee venom protein (honey bee) Allergy Unknown HIVES AND Verified 05/31/20 12:19 SWELLING pollen extracts Allergy Unknown UNKNOWN Verified 05/31/20 12:19 No Known Drug Allergies Allergy Unknown Verified 05/31/20 12:19 Lawai Tar Allergy Mild Unknown Uncoded 05/31/20 12:19 Consultations 05/31/20 12:57 ED Decision to Admit Stat 05/31/20 13:01 Consult Case Management - Discharge Planning Routine Consult Neurology Routine 06/02/20 10:16 Consult Pulmonology Routine Ordered Studies 05/31/20 11:47 CT head/brain wo con Stat 05/31/20 13:00 MR brain wo/w con Routine 05/31/20 16:33 US venous doppler LE BI Urgent 06/01/20 00:00 FL video swallow Routine Hospital Course (1) Stroke-like symptom: per admitting service notes: This is a 54-year-old female who has significant past medical history of failure on 6 L of O2, COPD, cirrhosis, hepatic encephalopathy, MELVI chronic diastolic CHF, HTN, HLD, bipolar disorder history of migraine history of alcohol abuse, anemia of chronic disease, history of tobacco abuse, generalized anxiety disorder, GERD, hepatopulmonary syndrome who presents to ED secondary to right- sided numbness x1 day. Work up in ED unrevealing. Repeat Heat CT negative for acute abnormality. Signs/sx given ipsilateral do not coordinate with that of CVA; nonetheless will admit for stroke/neuro work up. Sx less likely related to bells palsy as there is no 7th cranial nerve deficit. Possible Migraine given sx of migraine 2 days ago. Prior MRI reveals small vessel disease, ? TIA Right sided facial numbness resolved, right hand and foot numbness about the same Brain MRI with contrast: no acute CVA recent CT angio 05/29: no significant stenosis ASA 81mg po daily started Neurologist consulted, possible protracted migraine with aura Recommend magnesium and vitamin b2 Still remains generally weak with weaker on the right sided extremities We will continue PT and OT evaluation-recommended home with continued physical therapy/rehab She will be discharged home this afternoon Advised to take extreme precaution to avoid falls (2) Chronic respiratory failure with hypoxia and hypercapnia: (3) COPD (chronic obstructive pulmonary disease): (+) Mild Acute Exacerbation- Acute Bronchitis, Possible Aspiration Pneumonitis baseline 6L of O2 CXR: mild basilar infiltrates Cepheid Covid Test: negative Improving gradually, but reports dyspnea with minimal exertion Remains euvolemic Appreciate pulmonary input and recommendation Continue Day # 5 Prednisone 40mg po daily, Nebs QID, Doxycycline + Augmentin with probiotics Continue O2, symbicort, daliresp, Spiriva Denies any shortness of breath at rest and clinically seems to be improved No further recommendations from the pulmonary service Advised to have outpatient polysomnography as soon as possible an outpatient appointment with the [facility] for continuation of care 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 Follows Aura Dietrich (4) Electrolyte abnormality: Hypokalemia replaced with PO K (5) Chronic diastolic CHF (congestive heart failure): echo 05/14/20 EF 60 to 65%, left ventricular diastolic function normal, AV sclerosis without stenosis no evidence of pulmonary hypertension, intrapulmonary shunt noted Currently on Lasix, Aldactone and potassium secondary to cirrhosis -- euvolemic -We will continue Lasix as an outpatient (6) HTN, goal below 140/90: Blood pressure mildly elevated, allow for permissive hypertension in setting of stroke work-up continue Lasix, Aldactone, and losartan -- BP improving monitor (7) Alcoholic cirrhosis: History of hepatic encephalopathy per patient's , patient has been taking her lactulose and has at least 3 BMs per day Continue Lasix, Aldactone, thiamine, folic acid and lactulose Currently compensated (8) Bipolar 1 disorder: Also depression and anxiety Mood stable Continue Lamictal, Zoloft, Buspar and trazodone (9) Anemia, chronic disease: h/h stable at 10.6 and 32.9 No signs or symptoms of bleeding (10) Abnormal CT scan, neck: Neck CTA from 05/29/20 revealed thyroid nodules and nodule of L parotid gland CT: 5. Bilateral thyroid nodules measure up to 1.5 cm. Nonemergent thyroid ultrasound is recommended in follow-up. 6. A 10 mm nodule is seen within the left parotid gland. Nonemergent ENT follow- up is recommended. Recommend non emergent follow up at discharge (11) DVT prophylaxis: Heparin SC SCD/TEDS Disposition: lives with at home PT/OT evaluation in progress patient and family would like for her to return home when medically stable, declining Rehab/SNF Follow up: PCP Dr. Crane upon discharge; follow up non emergent studies for thyroid and parotid gland Plan of care discussed by Dr Zapata in detail and at length with patient and her all questions answered They are understanding, agreeable, comfortable with the plan of care Discussed with her yesterday 06/03/2020 She will be discharged home this afternoon Total Time Total Time Spent Total Time Spent (In Minutes): 35 minutes Total Time Includes: Examination of the Patient, Discharge Planning, Medication Reconciliation and Communication With Other Providers Discharge Plan Discharge Items Patient Disposition: Home - Home Health Services Reason For Visit: R SIDED NUMBNESS, STROKE LIKE SX Discharge Diagnosis: Right-sided numbness, stroke has been ruled out,protracted migraine with aura, acute on chronic respiratory failure with hypoxia and hypercapnia, COPD/asthma, MELVI, pulmonary hypertension,Chronic diastolic CHF , alcoholic cirrhosis Condition on Discharge: Fair Activity: Resume your previous activity Non-emergency contact: Primary Care Provider Call non-emergency contact if: you have any medication questions and your symptoms worsen Follow-up/Referrals: Rangel Crane DO [Primary Care Provider] - (Date & Time 06/10/2020 11:20 AM Provider Rangel Crane DO Department General Internal Medicine [place], [place] ) Wolf Garay MD [Outside Practitioners] - (Date & Time 06/11/2020 10:20 AM Provider Wolf Garay MD Department Pulmonary Medicine, [facility] ) Diet: Heart Healthy and Low Sodium (2gm) Diet Texture: Easy to Chew Addtl Attending Provider Instructions: Please take precaution to avoid falls Use the walker while moving around the home Keep appointments with your primary care provider and spring internship Pending Studies at Discharge: No Stand-Alone Forms: My [facility] [employer], Smoking Cessation Medications and DC Order Prescriptions: New atorvastatin 40 mg Tablet 40 mg PO QAM 30 Days Qty: 30 RF: 0 doxycycline hyclate 100 mg Capsule 100 mg PO BID 3 Days Qty: 6 RF: 0 aspirin 81 mg Tablet,Delayed Release (Dr/Ec) 81 mg PO DAILY 30 Days Qty: 30 RF: 0 prednisone 20 mg Tablet 20 mg PO DAILY 2 Days Qty: 2 RF: 0 Continued Symbicort 160-4.5 mcg/actuation HFA aerosol inhaler 2 puffs INH BID RF: 0 albuterol sulfate [Ventolin HFA] 90 mcg/actuation HFA aerosol inhaler 2 puffs INH Q6H PRN (Reason: Wheezing) RF: 0 Xifaxan 550 mg tablet 550 mg PO BID RF: 0 lactulose 10 gram/15 mL solution 60 ml PO QID RF: 0 Mucinex DM 30-600 mg tablet extended release 12 hr 1 tab PO Q12H PRN (Reason: Cough) RF: 0 folic acid 1 mg tablet 1 mg PO QAM RF: 0 hydroxyzine HCl 25 mg tablet 25 mg PO BID PRN (Reason: Anxiety) RF: 0 trazodone 100 mg tablet 150 mg PO HS RF: 0 polyethylene glycol 3350 [Miralax] 17 gram powder in packet 17 g PO DAILY PRN (Reason: Constipation) RF: 0 tramadol [Ultram] 50 mg tablet 50 mg PO BID PRN (Reason: Pain, Severe) RF: 0 dicyclomine 20 mg tablet 20 mg PO BID RF: 0 levalbuterol HCl 1.25 mg/0.5 mL Solution For Nebulization 1.25 mg inhalation Q4H PRN (Reason: shortness of breath or wheezing) Qty: 25 RF: 2 furosemide [Lasix] 40 mg tablet 40 mg PO BID RF: 0 ropinirole [Requip] 0.25 mg tablet 0.25 mg PO HS RF: 0 pantoprazole [Protonix] 40 mg tablet,delayed release (DR/EC) 40 mg PO BID RF: 0 fluticasone propionate [Flonase Allergy Relief] 50 mcg/actuation spray,suspension 2 spray Intranasal DAILY PRN (Reason: Allergy Symptoms) RF: 0 losartan [Cozaar] 25 mg tablet 25 mg PO QAM RF: 0 magnesium oxide 400 mg magnesium tablet 400 mg PO BID RF: 0 montelukast [Singulair] 10 mg tablet 10 mg PO HS RF: 0 potassium chloride [Klor-Con 10] 10 mEq tablet extended release 10 meq PO QAM RF: 0 thiamine HCl (vitamin B1) [Vitamin B-1] 100 mg tablet 100 mg PO QAM RF: 0 spironolactone [Aldactone] 100 mg tablet 150 mg PO QAM RF: 0 lamotrigine 150 mg tablet 150 mg PO HS RF: 0 sertraline 50 mg tablet 75 mg PO QAM RF: 0 psyllium Packet 1 pkt PO DAILY Qty: 30 RF: 0 ipratropium bromide 0.02 % solution 2.5 ml inhalation Q4H PRN (Reason: shortness of breath or wheezing) RF: 0 multivitamin Tablet 1 tab PO QAM RF: 0 buspirone 5 mg tablet 5 mg PO BID RF: 0 prednisone 10 mg Tablet 10 mg PO DAILY RF: 0 famotidine 20 mg Tablet 20 mg PO HS RF: 0 ferrous sulfate 325 mg (65 mg iron) Tablet 325 mg PO BID RF: 0 Daliresp 500 mcg Tablet 500 mcg PO DAILY RF: 0 Spiriva with HandiHaler 18 mcg Capsule, W/Inhalation Device 1 cap INHALATION DAILY RF: 0 Discharge Orders: Discharge Order (Routine); Ordered 06/04/20 Ordered By: Rebekah Simpson Admission Data Admit Date/Time: 06/02/20 16:35 Attending Provider: Rebekah Simpson Admit Provider: Flaco Zapata Primary Care Provider: Rangel Crane Other Providers: Flaco Zapata ; Ronald Shipman Muqueet Other Interventions: Discharge Summary Assessment (RN) Last Done: 06/04/20 12:56
== END 2020-06-04 14:20 | disposition home health service (06) | DRG 103 ==
LOC: ED 11:24 → 2S 13:00 → INTOOBSV 14:27 → SUATTDRO 06-02 16:35